=== PATIENT | female | born 1970 | race Caucasian/White ===

== ENCOUNTER → 2017-03-28 08:06 | Outpatient (CLI) | payer OTHER, SELFPAY ==
--- NOTE | 2017-03-28 08:12 | CT_ITS ---
STUDY: CT ABDOMEN AND PELVIS WITH CONTRAST REASON FOR EXAM: Female, 46 years old. Left lower quadrant pain. The patient has a history of lymphoma. Prior splenectomy. RADIATION DOSAGE (If Supplied By Facility): CTDIvol = ( 19.44 ) mGy, DLP = ( 2372.78 ) mGycm TECHNIQUE: Transaxial images were obtained from the dome of the diaphragm to the symphysis pubis with oral contrast. 100mL ml of Isovue 300 contrast was administered. Sagittal and coronal images were reconstructed. Individualized dose optimization techniques were used for this CT. COMPARISON: Comparison is made with prior study dated October 29, 2007. FINDINGS: Calcified granuloma in the left lower lobe. The visualized portions of the heart are within normal limits. There is decreased attenuation of the liver consistent with steatosis. Normal gallbladder and extrahepatic biliary system. Prior splenectomy. There is diffuse atrophy of the pancreas. Normal bilateral adrenal glands. Normal right kidney. Normal left kidney. Normal visualized stomach. Normal small intestine. There are multiple colonic diverticula consistent with diverticulosis. The appendix is visualized and appears normal. Normal abdominal aorta. Normal inferior vena cava. There is borderline retroperitoneal lymphadenopathy with enlarged nodes no greater than 10mm in the short axis diameter. Surgical clips are seen in the retroperitoneal region. This is unchanged. Normal urinary bladder. There is evidence of prior ventral hernia repair with a mesh. Small lymph nodes are seen in the inguinal regions bilaterally. Mild disc space narrowing at the L1-L2 level. CT/Abdomen/Pelvis WITH Contrast IMPRESSION: Prior splenectomy. Fatty infiltration of the liver. Sigmoid diverticula. No acute abnormality is seen. Electronically Signed: Emre Tan MD at 10:10 EST Tel [phone], Service support ,
== END ==
LOC: CT 08:06
PROVIDERS: Family Provider Internal Medicine; PCP Internal Medicine; Visit Provider Internal Medicine
DX: R10.32 Left lower quadrant pain (principal)
CPT/HCPCS: 74177; Q9967

== ENCOUNTER → 2017-10-02 12:59 | Outpatient (CLI) | payer OTHER, SELFPAY ==
--- NOTE | 2017-10-02 13:02 | VDLE_ITS ---
Reason For Study: SOB RIGHT LEFT GSV is normal. GSV is normal. CFV is compressible, spontaneous, phasic, CFV is compressible, spontaneous, phasic, competent and demonstrates normal competent, and demonstrates normal augmentation. augmentation. FV is compressible, spontaneous, phasic, FV is compressible, spontaneous, phasic, competent and demonstrates normal competent and demonstrates normal augmentation. augmentation. POP V is compressible, spontaneous, phasic, POP V is compressible, spontaneous, phasic, competent and demonstrates normal competent and demonstrates normal augmentation. augmentation. T/P Trunk is compressible. T/P Trunk is compressible. PTV is compressible. PTV is compressible. RT PerV is compressible. LT PerV is compressible. Procedure Rt and Left Prox Cathy V are difficult to Exam performed in department. visualize. A preliminary report was called and/or faxed to Dr Lozano. Interpretation Summary Deep veins of the lower extremities are bilaterally patent and compressible segmentally. There is no evidence of deep vein thrombosis on either side. Valvular competence appears intact within the proximal deep venous systems bilaterally. The greater saphenous veins appear bilaterally patent and compressible segmentally. Peroneal veins were not well visualized on either side. Ordering Physician: Sho Lozano Referring Physician: Sho Lozano Performed By: Lucy Stone, RDCS, RVT
--- NOTE | 2017-10-02 13:41 | RAD_ITS ---
STUDY: X-RAY CHEST REASON FOR EXAM: Female, 47 years old. Short of breath TECHNIQUE: Frontal and lateral view of the chest. COMPARISON: 04-08-15 FINDINGS: The lungs are clear and expanded. There is no demonstrated pleural abnormality. Normal size heart. Normal mediastinum and ian. Normal visualized pulmonary arteries. Normal visualized aortic arch and descending thoracic aorta. There are diffuse degenerative changes of the visualized thoracic spine. Normal visualized ribs, clavicles, and shoulders. There is no demonstrated abnormality of the visualized soft tissue structures of the upper abdomen. RAD/Chest PA and Lateral IMPRESSION: There are no acute findings in the chest. Electronically Signed: Arthur Sandhu MD at 16:49 EDT , Service support ,
== END ==
PROVIDERS: Family Provider Internal Medicine; PCP Internal Medicine; Visit Provider Internal Medicine
DX: R06.02 Shortness of breath (principal)
CPT/HCPCS: 71046; 93970

== ENCOUNTER 2017-10-31 13:01 | Day surgery (SDC) | payer OTHER, SELFPAY ==
[2017-10-31 13:27] LABS: Internal QC Validated? YES +Cl - CLEAR BKGD; Pregnancy, Urine Negative Negative
[2017-10-31 13:32] VITALS: BP 147/66; PULSE 66; RESP 16; TEMP 36.6; O2SAT 100; BMI 55.7
[2017-10-31] MEDS: Scopolamine 1mg/72hr Patch 1 PATCH TRANSDERM. (13:39)
[2017-10-31] MEDS: Celecoxib 200 MG Capsule 400 MG PO (13:40)
[2017-10-31] MEDS: Acetaminophen 500 MG Tablet 1000 MG PO (13:40)
[2017-10-31 15:50] VITALS: BP 147/66; BP 160/82; PULSE 83; RESP 14; TEMP 36.5; O2SAT 95
--- NOTE | 2017-10-31 15:51 | PCM.DC.D&C ---
Discharge Diet: No Restrictions Discharge Activity: Return to Normal Activity, May Shower, May Take a Tub Bath - in 2 weeks. May resume sexual activity in: 2 weeks Call your doctor if your incision/area has: Continuous Slow Oozing, Sudden Increased Bleeding, Foul Smelling Discharge Call your doctor if you observe: Fever of 101 or Higher, Using more than one pad per hour Allergies/Adverse Reactions: Allergies adhesive tape Allergy (Verified 10/24/17 10:07) Rash hydrocodone bitartrate [From Vicodin] Allergy (Verified 10/24/17 10:07) Rash latex Allergy (Verified 10/24/17 10:07) Rash meloxicam Allergy (Verified 10/24/17 10:07) Rash Medications to take at Discharge Albuterol IH (ProAir) [Proair Hfa] 2 puff INHALATION Q4H PRN PRN 04/08/15 Budesonide/Formoterol 160/4.5 [Symbicort 160/4.5 Mcg Inhaler (SP)] 2 puff INHALATION BID 04/08/15 Levothyroxine [Synthroid] 25 mcg PO DAILY 04/08/15 Loratadine [Claritin] 10 mg PO PRN PRN 04/08/15 Multivitamin [Multiple Vitamins] 1 each PO DAILY 07/29/16 Clopidogrel Bisulfate [Plavix] 75 mg PO DAILY #30 tablet 07/31/16 Escitalopram Oxalate [Lexapro] 10 mg PO DAILY #30 tablet 07/31/16 Losartan/Hydrochlorothiazide [Losartan-Hctz 100-25 mg Tab] 1 each PO DAILY 10/24/17 Montelukast [Singulair] 10 mg PO DAILY 10/24/17 Primary Care Physician: Sho Lozano DO [Primary Care Provider] - Test Results: Test results from this visit will be discussed in further detail at your follow-up appointment, if applicable. Please Follow Up With: Cathleen Fields MD - [phone] When: Dr. Fields's office 2-4 weeks or as needed
--- NOTE | 2017-10-31 15:52 | PCM.OPRPT ---
Report of Operation Date of Procedure: 10/31/17 Pre-Operative Diagnosis: PMB, endometrial polyp Post-Operative Diagnosis: same Surgery/Procedure Performed:: Hysteroscopy and visual dilation and curettage with removal of polypoid appearing tissue with Symphion device Description of Surgical Findings:: Very small endometrial cavity. Both tubal ostia are identified. There is some polypoid appearing material in the anterior endometrial wall. Normal-appearing cervix, vagina and endocervical canal. mixer lever operator: Shabnam Cuadra MS3 Type of Anesthesia:: General Anesthesiologist: Carlotta Pond Special Medications: none Specimen's removed: Endometrial curetting Drains: None Estimated Blood Loss (mL): 10 cc Fluids Replaced: LR Description of Procedure: The patient was taken to the OR where she was prepped and draped in dorsal lithotomy position. The weighted speculum was placed in the vagina and the anterior lip of the cervix was grasped with a single-tooth tenaculum. A paracervical block was administered with [1% lidocaine with 1-100,000 epinephrine solution]. The cervix was dilated serially with Hegar dilators. The [7mm] hysteroscope was placed into the uterine cavity and the above findings were noted. Bilateral tubal ostia [were] identified. The hysteroscope was removed. The Symphion device was readied and inserted. The device was used to remove the polypoid appearing material from the anterior uterine wall and then to do a visual D&C of the entire uterine cavity.. The instruments were removed from the vagina. The specimen was handed off and sent to pathology. All sponge and needle counts were correct. Vaginal sweep was performed by me. The patient was awakened and taken to the recovery room in stable condition. Hysteroscopic fluid deficit was 250 cc of normal saline Grafts/Implants Used: None - Complications None - Admit VTE Documentation VTE Present on Admission: No VTE Mechan Device Prophylaxis: SCD's VTE Pharm Prophylaxis ordered?: No
[2017-10-31 16:00] VITALS: BP 147/66; BP 159/82; PULSE 80; RESP 16; O2SAT 96
[2017-10-31 16:15] VITALS: BP 147/66; BP 155/81; PULSE 77; RESP 16; O2SAT 93
[2017-10-31 16:36] VITALS: BP 147/66; BP 162/80; PULSE 78; RESP 16; TEMP 36.9; O2SAT 93
[2017-10-31 17:10] VITALS: BP 147/66
--- NOTE | 2017-11-01 | EMB_PTH ---
PATIENT: ETHEL FORMAN LOC: [facility] [place] U#:[id number] AGE/SX: 47/F ROOM: RE10/31/[address]: Dr. Cathleen Fields MD : 1970 BED: DIS: 10/31/2017 SPEC #: [id number] RECD: 11/01/17 10:02 STATUS: VÍCTOR FRANSISCA #: [id number] DELMY: 11/01/17 00:[address]: Cathleen Fields DEPT: SURGICAL PATHOLOGY RECD BY: James Martinez ENTERED: 11/01/17 10:04 SP TYPE: ENDOM BX/C LISA DR: Dr. Sho Lozano, DO Tissues: Endometrium, NOS Procedures: Surgery Specimen Level IV HEADER OPERATION: Hysteroscopy, D & C, resection, Symphion PRE-OP DIAGNOSIS: Postmenopausal bleeding, thickened endometrium TISSUE SUBMITTED: Endometrial curettings MICROSCOPIC DIAGNOSIS Endometrial curettings: Mildly disordered proliferative endometrium. Fragments of myometrium. SJ:nancy 11/05/17 MICROSCOPIC DESCRIPTION Slides are reviewed. GROSS DESCRIPTION Received in fixative is one container labeled with the patient's name and designated endometrial curettings. The specimen consists of multiple irregular fragments of light elizabeth soft tissue that in aggregate measure 2 x 1 x 0.1 cm. The specimen is totally submitted in one cassette. / AM:nancy 11/01/17 TC:5 CPT: 06082
== END 2017-10-31 17:20 | disposition home or self-care (01) ==
LOC: SDC 13:02 → AC 13:03
PROVIDERS: Family Provider Internal Medicine; PCP Internal Medicine; Visit Provider Obstetrics & Gynecology
PROC: (CPT 58558; principal; 2017-10-31 14:30)
DX: N95.0 Postmenopausal bleeding (principal); N84.0 Polyp of corpus uteri; Q21.1 Atrial septal defect; J45.909 Unspecified asthma, uncomplicated; E78.00 Pure hypercholesterolemia, unspecified; G47.33 Obstructive sleep apnea (adult) (pediatric); K21.9 Gastro-esophageal reflux disease without esophagitis; F32.9 Major depressive disorder, single episode, unspecified; F41.9 Anxiety disorder, unspecified; I25.2 Old myocardial infarction; Z79.02 Long term (current) use of antithrombotics/antiplatelets; Z79.82 Long term (current) use of aspirin; Z79.899 Other long term (current) drug therapy; Z85.72 Personal history of non-Hodgkin lymphomas; Z86.711 Personal history of pulmonary embolism; Z86.73 Personal history of transient ischemic attack (TIA), and cerebral infarction without residual deficits
CPT/HCPCS: 00952; 58558; 81025; 86850; 86900; 88305; J7120; J2405

== ENCOUNTER 2017-11-11 20:17 | Emergency (ER) | payer OTHER, SELFPAY ==
[2017-11-11 20:17] VITALS: BP 145/68; PULSE 88; RESP 18; TEMP 36.9; O2SAT 99; BMI 54.2
--- NOTE | 2017-11-11 20:57 | RAD_ITS ---
STUDY: X-RAY - LEFT KNEE REASON FOR EXAM: Female, 47 years old. Fall, left knee pain. TECHNIQUE: view(s) of the knee. COMPARISON: None. FINDINGS: Normal visualized distal femur. Normal visualized proximal tibia and fibula. Normal proximal tibiofibular articulation. Normal medial femorotibial compartment. Normal lateral femorotibial compartment. Normal patellofemoral articulation. There is marked anterior soft tissue swelling. RAD/Knee 3 Views IMPRESSION: Soft tissue swelling. No evidence of fracture. Electronically Signed: Olena Gilman MD at 21:57 EDT Tel , Service support ,
--- NOTE | 2017-11-11 21:12 | RAD_ITS ---
STUDY: X-RAY - RIGHT KNEE REASON FOR EXAM: Female, 47 years old. Fall, knee pain. TECHNIQUE: 3 view(s) of the knee. COMPARISON: None. FINDINGS: Normal visualized distal femur. Normal visualized proximal tibia and fibula. Normal proximal tibiofibular articulation. Normal medial femorotibial compartment. Normal lateral femorotibial compartment. Normal patellofemoral articulation. The soft tissue structures are unremarkable. RAD/Knee 3 Views IMPRESSION: Normal x-ray examination of the knee. Electronically Signed: Olena Gilman MD at 21:56 EDT Tel , Service support ,
--- NOTE | 2017-11-11 21:20 | RAD_ITS ---
STUDY: X-RAY - LEFT HAND REASON FOR EXAM: Female, 47 years old. Fall. Pain around second MCP joint. TECHNIQUE: 3 view(s) of the hand. COMPARISON: None. FINDINGS: Slight limitation due to ring on the fourth digit. There is no fracture or dislocation. Joint spaces are well-maintained. Soft tissues and bony structures are unremarkable. RAD/Hand Min 3 Views IMPRESSION: Normal x-ray examination of the hand. Electronically Signed: Olena Gilman MD at 21:55 EDT Tel , Service support ,
--- NOTE | 2017-11-11 22:11 | ED.DCSUM_ITS ---
- ER Visit Summary Date of Service: 11/11/17 Chief Complaint: [Fall] History of Present Illness: The patient is a 47 F [l presents the emergency department [place] Patient states that she tripped over a crack in the concrete and landed on her knees. Patient complains of pain mostly in the left knee and pain with ambulation. Patient having a hard time bearing weight secondary to pain. Patient has a history of hypertension and Hodgkin's lymphoma. Physical Examination: [HEENT-PERRLA, EOMI. Cranial nerves II through XII grossly intact. TMs clear. Mucous membranes moist. No adenopathy. Cardiovascular-regular rate and rhythm without murmur or ectopy Lungs-clear to auscultation, chest wall stable without crepitus or subcu emphysema Abdomen-normoactive bowel sounds, soft, nontender, no rebound or rigidity, no peritoneal signs. Extremities-intact ?4, normal range of motion, normal pulses. Patient does have ecchymosis and bruising to the left knee with soft tissue swelling. She has diffuse pain on palpation. She is ligamentously stable. Right knee-mild soft tissue swelling minimal bony tenderness on exam. Patient has normal range of motion flexion extension of the knee. Elevation left hand does reveal some ecchymosis and bruising over the dorsal aspect of the third MCP joint. She has tenderness over the third metacarpal. Neurovascular intact distally. No obvious deformity. Test Results: [X-rays of bilateral knees and left hand obtained showed no fractures.] Emergency Department Course and Treatment: [Patient was given Taurus wrap for her left knee.] Treatment Plan: [Patient was given a prescription for Percocet for pain and advised to follow-up with her orthopedic surgeon within next 3-5 days] Disposition: [Discharged home in stable condition] Impression: [Mechanical fall Bilateral knee contusions Left hand contusion] This note was generated with [employer] dictation software. It may contain incorrect words, spelling, and punctuation that were not noted in review of the chart prior to signing ED Disposition - Plan for ED Patient: Chief Complaint: Lower Extremity Injury Referrals: Sho Lozano DO [Primary Care Provider] -
--- NOTE | 2017-11-11 22:12 | ED.DEP ---
ED Disposition - Plan for ED Patient: Chief Complaint: Lower Extremity Injury Instructions: ED Contusion Lower Ext, ED Contusion Hand Prescriptions: Oxycodone HCl/Acetaminophen [Percocet 5/325] 1 tab PO Q6H PRN PRN 3 Days #12 tab PRN Reason: Pain Referrals: Sho Lozano DO [Primary Care Provider] - Eric Duncan MD [STAFF PHYSICIAN] - 5-7 Days
[2017-11-11] MEDS: oxyCODONE 5 MG Tablet PO (22:31)
[2017-11-11 22:34] VITALS: RESP 18; O2SAT 99
== END 2017-11-11 22:35 | disposition home or self-care (01) ==
PROVIDERS: Emergency Provider Emergency Medicine; Family Provider Internal Medicine; PCP Internal Medicine
DX: S80.02XA Contusion of left knee, initial encounter (principal); S80.01XA Contusion of right knee, initial encounter; S60.222A Contusion of left hand, initial encounter; W01.0XXA Fall on same level from slipping, tripping and stumbling without subsequent striking against object, initial encounter; Y93.9 Activity, unspecified; Y92.89 Other specified places as the place of occurrence of the external cause; Y99.9 Unspecified external cause status; I10 Essential (primary) hypertension; R19.7 Diarrhea, unspecified; Z79.02 Long term (current) use of antithrombotics/antiplatelets; Z79.82 Long term (current) use of aspirin; Z79.899 Other long term (current) drug therapy; Z85.71 Personal history of Hodgkin lymphoma
CPT/HCPCS: 73130; 73562; 99284

== ENCOUNTER → 2017-12-04 15:09 | Outpatient (CLI) | payer OTHER, SELFPAY ==
--- NOTE | 2017-12-04 15:26 | VDLE_ITS ---
Reason For Study: Pain LLE Procedure LEFT Exam performed in department. GSV is normal. A preliminary report was called and/or CFV is compressible, spontaneous, phasic, faxed to Dr. Duncan. competent, and demonstrates normal augmentation. FV is compressible, spontaneous, phasic, competent and demonstrates normal augmentation. POP V is compressible, spontaneous, phasic, competent and demonstrates normal augmentation. T/P Trunk is compressible. PTV is compressible. LT PerV is compressible. Difficult to visualize Lt FV distal and calf veins due to patient body habitus Hypoechoic, non vascular structure noted anterior prox calf and around the knee (area of bruising/swelling) measuring 4.56cm x 1.82cm. Interpretation Summary Deep veins of the left lower extremity are patent and compressible segmentally. There is no evidence of left lower extremity deep vein thrombosis. Valvular competence appears intact within the proximal deep venous system on the left . The left greater saphenous vein appears patent and compressible segmentally. The left distal femoral vein and calf veins were not well visualized due to the patient's body habitus. A non-vascular, hypoechoic structure is noted in the left proximal, anterior calf and the left knee area, measuring 4.65 cm x 1.82 cm. This may represent a hematoma or seroma. Clinical correlation is advised. Ordering Physician: Eric Duncan Referring Physician: Sho Lozano Performed By: Yuliya Washington, IRVIN, RVT
[2017-12-04 15:41] LABS: Pathologist Comment May follow
[2017-12-04 16:19] LABS: RBC /Synovial Fluid 1.487 10^6/uL (0); Synovial Fld Mononuclear WBC % 34.8 %; Synovial Fld Polynuclear WBC # 0.983 10^3/ul; Synovial Fld Polynuclear WBC % 65.2 %
[2017-12-04 18:09] LABS: AUTO B FLUID DILUENT BKGD CT WBC <0.1 RBC <0.01 (W<.1,R<.01)
[2017-12-04 18:10] LABS: Appearance /Synovial Fluid Turbid (CLEAR); Color / Synovial Fluid Bloody (Pale Yellow); Lymph 13 %; Monocyte /Synovial Fluid 3 %; Neutrophil 75 % (0-25); Other Cell /Synovial Fluid 9 %; Source- Body Fluid SYNOVIAL; Synovial Fld Mononuclear WBC # 0.524 10^3/ul
[2017-12-04 18:11] LABS: Body Fluid QC Type(s) BF2Q,BF3Q
[2017-12-05 13:37] LABS: Pathologist Review Reviewed
== END ==
PROVIDERS: Family Provider Internal Medicine; PCP Internal Medicine; Referring Provider Orthopaedic Surgery; Visit Provider Orthopaedic Surgery
DX: M25.462 Effusion, left knee (principal); M79.662 Pain in left lower leg
CPT/HCPCS: 87070; 87075; 87205; 89050; 89051; 89060; 93971

== ENCOUNTER 2018-03-26 09:36 | Emergency (ER) | payer OTHER, SELFPAY ==
[2018-03-26 09:38] VITALS: BP 168/91; PULSE 80; RESP 16; TEMP 36.6; O2SAT 99; BMI 54.2
--- NOTE | 2018-03-26 10:00 | ED.VISSUMM ---
- ER Visit Summary Date of Service: 03/26/18 Chief Complaint: [Laceration to right lateral ankle] History of Present Illness: The patient is a 47 F [presents the emergency department complaining of a laceration to her right lateral ankle that occurred while shaving this morning. Patient states that she has some varicosities and when she cut herself she can get the bleeding to stop. Patient is on aspirin and Plavix. She has prior history of PE. Patient unsure of her last tetanus.] Physical Examination: [HEENT-PERRLA, EOMI. Cranial nerves II through XII grossly intact. TMs clear. Mucous membranes moist. No adenopathy. Cardiovascular-regular rate and rhythm without murmur or ectopy Lungs-clear to auscultation, chest wall stable without crepitus or subcu emphysema Abdomen-normoactive bowel sounds, soft, nontender, no rebound or rigidity, no peritoneal signs. Extremities-intact ?4, normal range of motion, normal pulses. Right lateral ankle-there is a 2 mm linear/superficial laceration over a superficial varicosity that continues to ooze dark blood despite pressure.] Test Results: [None indicated] Emergency Department Course and Treatment: [Using 1% lidocaine with epinephrine I injected 1.5 cc in the area of the bleeding. I continue to hold pressure. I used silver nitrate cautery to cauterize the bleeding area. The area was observed for about 15 minutes and she had no further bleeding. Clean dressing was applied.] Treatment Plan: [Should the bleeding continue patient hold pressure if the bleeding does not stop to return to the emergency department.] Disposition: [Discharged home in stable condition] Impression: [Laceration right ankle with silver nitrate cautery] This note was generated with [employer] dictation software. It may contain incorrect words, spelling, and punctuation that were not noted in review of the chart prior to signing ED Disposition - Plan for ED Patient: Chief Complaint: Laceration Referrals: Sho Lozano DO [Primary Care Provider] -
--- NOTE | 2018-03-26 10:03 | ED.DEP ---
ED Disposition - Plan for ED Patient: Chief Complaint: Laceration Instructions: ED Laceration Small Superf No Sutr Referrals: Sho Lozano DO [Primary Care Provider] - As Needed
[2018-03-26] MEDS: Diphth,Pertuss(Acell),Tet Vac 0.5 ML Vial IM (10:16)
--- OUTSIDE RECORDS SUMMARY | 2018-05-28 06:37 | XMS RPT_ITS | Continuity of Care Document ---
:1970 Author Organization [facility] Address [address] [facility] [address] [place] [address] Phone Care Team Providers Name Role Phone Sho Lozano DO Unavailable Brooklynn RODRIGUES, Dr. Jacinto Corrales Unavailable MD Chandler, Stan Unavailable Raymundo Ordonez MD Unavailable Christian LopezShabnamSharri Lomax Unavailable Unavailable TOMY TianN Rebekah Unavailable Unavailable Vivi Goodwin Unavailable Unavailable Long Carmelina MOORE Unavailable Unavailable Cassie Saul Unavailable Unavailable Unavailable Unavailable Problems Name Dates Details 0 Status: Active Abdominal pain (R10.9, 789.00) Status: Active Abnormal findings on diagnostic imaging of other specified body structures (R93.8, 793.99) Status: Active Abnormal glucose tolerance test (Renamed from Abnormal glucose tolerance test (GTT)) (R73.02, 790.22) Comments: new dx Status: Active Anxiety (F41.9, 300.00) Status: Active Arm pain (M79.603, 729.5) Status: Active ARTHROPLASTY, NOS Comments: Lt, first metatarsophalangeal 09/05, rt. 12 Dr. Mcgrath Status: Active Asplenia syndrome (759.0) Comments: with current infection - Staph fighting since september -- ENT managing Status: Active Asymptomatic varicose veins of unspecified lower extremity (I83.90, 454.9) Status: Active Bloating symptom (R14.0, 787.3) Comments: had cat scan abd/pelvis 03/21-- vaginal us and uterine bx 10/01/17 results pending Status: Active BMI 50.0-59.9, adult (Z68.43, V85.43) Status: Active Body aches (R52, 780.96) Status: Active Body aches (R52, 780.96) Status: Active Bronchitis (J40, 490) Status: Active Bronchitis (J40, 490) Status: Active Cellulitis (L03.90, 682.9) Comments: will treat empiracally Status: Active Chest pain (R07.9, 786.59) Comments: with radiation left arm, fatigue, SOB Status: Active Cough (R05, 786.2) Status: Active COUGH, NOS (R05, 786.2) 29-Jan-2011 Status: Active Cough, persistent (R05, 786.2) Comments: still in w/u Status: Active Dysuria (R30.0, 788.1) Comments: do post urine ck after tx to see if blood resolvedid have lapse in hormone rx - could be a little atrophy Status: Active Elevated blood pressure (not hypertension) (R03.0, 796.2) Status: Active Elevated d-dimer (R79.89, 790.92) Status: Active Elevated LFTs (Renamed from Elevated liver function tests) (R94.5, 790.6) Comments: mild Status: Active 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) (L52, 695.2) Status: Active Family history of diabetes mellitus (Z83.3, V18.0) Status: Active FATIGUE (R53.83, 780.79) Comments: to do 10day adrenal kit and cleanse part again Status: Active Fatty liver (K76.0, 571.8) Status: Active Fatty liver (K76.0, 571.8) Status: Active Fever (R50.9, 780.60) Status: Active Fever and chills (R50.9, 780.60) Status: Active GERD (gastroesophageal reflux disease) (K21.9, 530.81) Status: Active GERD (gastroesophageal reflux disease) (K21.9, 530.81) Status: Active Hearing loss of right ear due to cerumen impaction (H61.21, 389.8) Status: Active Hiatal hernia (K44.9, 553.3) Status: Active History of basal cell cancer (V10.83) Comments: s/p removal 2013 by Nga Status: Active History of DVT (deep vein thrombosis) (Z86.718, V12.51) Status: Active History of hodgkin's lymphoma (Z85.71, V10.72) Status: Active History of non anemic vitamin B12 deficiency (Z86.39, V12.1) Status: Active Hot flashes (N95.1, 627.2) Status: Active HTN (hypertension), benign (I10, 401.1) Status: Active Hypercholesteremia (E78.00, 272.0) Status: Active Hyperglyceridemia (E78.1, 272.1) Status: Active Hypoglycemia (E16.2, 251.2) Status: Active Hypothyroidism, unspecified (E03.9, 244.9) Status: Active Ischemic stroke of frontal lobe (I63.9, 434.91) Comments: asa plu plavix Status: Active LLQ abdominal pain (R10.32, 789.04) Status: Active Lymphadenopathy, cervical (R59.0, 785.6) Status: Active Migraine, unspecified, not intractable, without status migrainosus (G43.909, 346.90) Status: Active MYOCARDIAL INFARCTION, NOS (410.90) Status: Active Night sweats (R61, 780.8) Status: Active Non morbid obesity, unspecified obesity type (E66.9, 278.00) Status: Active Non-smoker (Z78.9, V49.89) Status: Active Nutritional counseling (Z71.3, V65.3) Status: Active Pain in limb (M79.609, 729.5) Status: Active Personal history of PE (pulmonary embolism) (Z86.711, V12.55) Comments: has a pfo Status: Active PFO (patent foramen ovale) (Q21.1, 745.5) Status: Active PHARYNGITIS, NOS (462.) (J02.9, 462) Status: Active Polyp of colon, adenomatous (D12.6, 211.3) Status: Active Pregnancies () Comments: 0 Status: Active Racing heart beat (R00.0, 785.0) Status: Active Rosacea (L71.9, 695.3) Status: Active Screening for malignant neoplasm of breast (Z12.39, V76.10) Status: Active Skin lesion (L98.9, 709.9) Status: Active Sleep apnea (G47.30, 780.57) Comments: wearing cpap mask Status: Active SOB (R06.02, 786.05) Status: Active SOB (shortness of breath) (R06.02, 786.05) Status: Active Sorethroat (J02.9, 462) Status: Active SYMPTOM, ABNORMAL INVOLUNTARY MOVEMENT NEC (781.0) Status: Active Symptomatic menopausal or female climacteric states (N95.1, 627.2) Comments: chemo damaged female organs so early 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 Unspecified asthma with (acute) exacerbation (J45.901, 493.92) Comments: causing wheeze and chest tightness -- think related to asthma- will try symbicort bid again since remebered that heart racing came after did symbicort and proventil togehter-- got partial relief with da pantera use so try bid for maintenance-- - bc wheeze worse at nite also gerd component?- try ppi, wt loss and raise head of bed and no eating or drinking 4hrs prior to bed Status: Active Unspecified Diagnosis Status: Active Unspecified Diagnosis Status: Active UTI (urinary tract infection) (N39.0, 599.0) Status: Active Ventral hernia without obstruction or gangrene (K43.9, 553.20) Status: Active Viral URI (J06.9, 465.9) Status: Active Vitamin D deficiency, unspecified (E55.9, 268.9) Status: Active Wheezing (R06.2, 786.07) -Dec-2011 Comments: elev hob helped and behavior modific Status: Active Medications Name Dates Details ASPIRIN EC LOW DOSE, 81MG (Oral Tablet Delayed Release) 1 (one) Tablet DR daily for 0 days Quantity: 30 {Tablet} Refills: 0 Ordered:06-Aug-2016 Carmelina Newman LPN Start : 12-Apr-2015 Active CLARITIN-D 24 HOUR, 10-240MG (Oral Tablet Extended Release 24 Hour) 1 Tablet ER 24HR qd for 30 days Quantity: 30 {Tablet} Refills: 0 Ordered:12-Apr-2015 Adelfo Lozano DO, DO, Kathleen Start : 12-Apr-2015 Active Lexapro 10 MG Oral Tablet 1 (one) Tablet daily for 30 days Quantity: 30 {Tablet} Refills: 3 Ordered:16-Aug-2017 Adelfo Lozano DO, DO, Kathleen Start : 16-Aug-2017 Active Losartan Potassium-HCTZ 100-25 MG Oral Tablet 1 (one) Tablet daily for 30 days Quantity: 30 {Tablet} Refills: 0 Ordered:11-Feb-2018 Baldemar Echols Start : 11-Feb-2018 Active MetFORMIN HCl ER 500 MG Oral Tablet Extended Release 24 Hour 1 (one) Tablet qd for 30 days Quantity: 30 {Tablet} Refills: 3 Ordered:16-Jul-2017 Adelfo Lozano DO, DO, Kathleen Start : 16-Jul-2017 Active Montelukast Sodium 10 MG Oral Tablet 1 qd (10 MG) Active MULTIVITAMIN (PO Tab) 1 Daily for 0 days Refills: 0 Ordered:29-Jul-2009 Mast RN, Palak NASONEX, 50MCG/ACT (Nasal Suspension) 1 spray Daily PRN for 0 days Refills: 0 Ordered:12-Apr-2015 Adelfo Lozano DO, DO, Kathleen Start : 12-Apr-2015 Active Plavix 75 MG Oral Tablet 1 (one) Tablet daily for 0 days Quantity: 30 {Tablet} Refills: 3 Ordered:12-Dec-2017 Adelfo Lozano DO, DO, Kathleen Start : 12-Dec-2017 Active PROAIR HFA, 108 (90 Base)MCG/ACT (Inhalation Aerosol Solution) 2 (two) Puff(s) tid prn for 0 days Quantity: 1 {Box} Refills: 4 Ordered:01-Jul-2015 Adelfo Lozano DO, DO, Kathleen Start : 01-Jul-2015 Active SYMBICORT, 160-4.5MCG/ACT (Inhalation Aerosol) 1 (one) puff puff bid for 0 days Quantity: 1 {Box} Refills: 4 Ordered:01-Jul-2015 Adelfo Lozano DO, DO, Kathleen Start : 01-Jul-2015 Active Synthroid 125 MCG Oral Tablet 1 (one) Tablet qd for 0 days Quantity: 30 {Tablet} Refills: 7 Ordered:13-Jan-2018 Adelfo Lozano DO, DO, Kathleen Start : 13-Jan-2018 Active VITAMIN D3, 82619YCYG (Oral Capsule) 1 Capsule 2 x week for 0 days Quantity: 8 {Capsule} Refills: 5 Ordered:02-Dec-2014 Carmelina Newman LPN Start : 22-Apr-2013 Active ADVIL, 200MG (Oral Capsule) 3 (three) Capsule TID for 0 days Refills: 0 Ordered:18-Dec-2013 CONSTANCE Fields Start : 23-Dec-2006 End : 18-Dec-2013 Inactive Amoxicillin 875 MG Oral Tablet 1 (one) Tablet two times daily for 7 days Quantity: 14 {Tablet} Refills: 0 Ordered:20-May-2017 Baldemar Echols Start : 20-May-2017 End : 27-May-2017 Inactive AMOXICILLIN, 875MG (Oral Tablet) 1 (one) Tablet bid for 10 days Quantity: 20 {Tablet} Refills: 0 Ordered:04-Jul-2015 Rebekah Tian LPN Start : 04-Jul-2015 End : 14-Jul-2015 Inactive ANTIVERT, 50MG (Oral Tablet) 1/2 -1 Tablet Q 8 hr PRN for 0 days Quantity: 30 {Tablet} Refills: 0 Ordered:13-Dec-2006 Rebekah Tian LPN Start : 13-Dec-2006 End : 20-Jan-2007 Inactive Augmentin 875-125 MG Oral Tablet 1 (one) Tablet bid for 0 days Quantity: 20 {Tablet} Refills: 0 Ordered:22-Mar-2017 Rebekah Tian LPN Start : 20-Nov-2016 End : 22-Mar-2017 Inactive Augmentin 875-125 MG Oral Tablet 1 Tablet Twice daily for 0 days Quantity: 20 {Tablet} Refills: 0 Ordered:20-Nov-2016 Vivi Goodwin Start : 16-Dec-2015 End : 20-Nov-2016 Inactive AZITHROMYCIN, 500MG (Oral Tablet) 1 Tablet qd for 0 days Quantity: 14 {Tablet} Refills: 0 Ordered:05-Jul-2011 Rebekah Tian LPN Start : 02-Feb-2011 End : 05-Jul-2011 Inactive BENZONATATE, 200MG (Oral Capsule) 1 (one) Capsule Capsule tid prn for 0 days Quantity: 60 {Capsule} Refills: 0 Ordered:01-Jul-2015 Rebekah Tian LPN Start : 12-Apr-2015 End : 01-Jul-2015 Inactive BIAXIN XL PAC, 500MG (Oral Tablet Extended Release 24 Hour) 2 (two) Tablet ER 24HR daily for 14 days Quantity: 28 {Tablet_ER_24HR} Refills: 0 Ordered:04-Dec-2011 Jennifer Willams MD Start : 04-Dec-2011 End : 04-Dec-2011 Inactive Comments:facial edema rash Cefdinir 300 MG Oral Capsule 1 (one) Capsule bid for 7 days Quantity: 14 {QS} Refills: 0 Ordered:27-Sep-2015 Clifford DIAS Jamee Start : 27-Sep-2015 End : 04-Oct-2015 Inactive CHERATUSSIN AC, 100-10MG/5ML (Oral Syrup) 1 Teaspoon(s) q4-6 prn cough for 0 days Quantity: 6 {Ounce(s)} Refills: 0 Ordered:02-Apr-2012 Rebekah Tian LPN Start : 03-Dec-2011 End : 02-Apr-2012 Inactive CIPRO, 500MG (Oral Tablet) 1 (one) Tablet BID for 7 days Quantity: 10 {Tablet} Refills: 0 Ordered:21-Jan-2009 Adelfo Lozano DO, DO, Kathleen Start : 21-Jan-2009 End : 11-Feb-2009 Inactive COQ10, 100MG (Oral Capsule) 1 cap qd (100 MG) Inactive COUMADIN, 10MG (Oral Tablet) 1 Tablet qd for 30 days Quantity: 30 {Tablet} Refills: 3 Ordered:12-Nov-2011 Roxie Vázquez LPN Start : 21-May-2011 End : 12-Nov-2011 Inactive COUMADIN, 4MG (Oral Tablet) 1 Tablet qd for 30 days Quantity: 30 {Tablet} Refills: 5 Ordered:12-Nov-2011 Roxie Vázquez LPN Start : 12-Feb-2011 End : 12-Nov-2011 Inactive DESOXIMETASONE, 0.25% (External Cream) Cream BID for 0 days Quantity: 1 {Cream} Refills: 0 Ordered:03-Jul-2006 Rebekah Tian LPN Start : 03-Jul-2006 End : 13-Dec-2006 Inactive Comments:small tube DIFLUCAN, 150MG (Oral Tablet) 1 (one) Tablet QD X 1 for 0 days Quantity: 1 {Tablet} Refills: 1 Ordered:14-Nov-2007 Rebekah Tian LPN Start : 14-Nov-2007 End : 21-Nov-2007 Inactive DOXYCYCLINE HYCLATE, 100MG (Oral Capsule) 1 (one) Capsule bid for 0 days Quantity: 20 {Capsule} Refills: 0 Ordered:16-Nov-2014 Carmelina Newman LPN Start : 05-May-2014 End : 16-Nov-2014 Inactive KEFLEX, 250MG (Oral Capsule) 1 qid for 0 days Refills: 0 Ordered:21-Nov-2007 Rebekah Tian LPN End : 21-Nov-2007 Inactive LEVAQUIN, 750MG (Oral Tablet) 1 Tablet daily for 10 days Quantity: 10 {Tablet} Refills: 0 Ordered:02-Feb-2011 Rebekah Tian LPN Start : 02-Feb-2011 End : 12-Feb-2011 Inactive Comments:take 1h before or 2h after meals Lipitor 80 MG Oral Tablet 1 (one) Tablet qhs for 0 days Quantity: 30 {Tablet} Refills: 4 Ordered:20-Nov-2016 Vivi Goodwin Start : 28-Aug-2016 End : 20-Nov-2016 Inactive NASACORT AQ, 55MCG/ACT (Nasal Aerosol Solution) 2 (two) Aerosol Soln qd for 0 days Quantity: 1 {Aerosol_Soln} Refills: 1 Ordered:22-May-2010 Maria Esther Amin Start : 22-Mar-2010 End : 22-May-2010 Inactive NYSTATIN, 944958WQCP/GM (External Powder) Powder TID/PRN to affected area for 0 days Quantity: 1 {Powder} Refills: 0 Ordered:03-Jul-2006 Rebekah Tian LPN Start : 03-Jul-2006 End : 13-Dec-2006 Inactive OMEPRAZOLE, 40MG (Oral Capsule Delayed Release) 1 (one) Capsule DR Capsule DR daily for 0 days Quantity: 30 {Capsule} Refills: 3 Ordered:01-Jul-2015 Rebekah Tian LPN Start : 12-Apr-2015 End : 01-Jul-2015 Inactive PEPCID AC, 10MG (Oral Tablet) 1 (one) Tablet Twice daily prn for 0 days Refills: 0 Ordered:14-Sep-2009 Rebekah Tian LPN Start : 29-Oct-2007 Inactive Pravastatin Sodium 40 MG Oral Tablet 1 qd (40 MG) Inactive PREDNISONE (TOPHER), 10MG (Oral Tablet) 3 (three) Tablet qd for 0 days Quantity: 30 {Tablet} Refills: 0 Ordered:09-Aug-2008 Rebekah Tian LPN Start : 09-Aug-2008 End : 10-Dec-2008 Inactive Comments:with food PredniSONE 20 MG Oral Tablet 2 (two) Tablet Tablet one hour before scan and 6hour after scan for 0 days Quantity: 4 {Tablet} Refills: 0 Ordered:02-Oct-2017 Rebekah Tian LPN Start : 27-Mar-2017 End : 02-Oct-2017 Inactive PREDNISONE, 10MG (Oral Tablet) 3 (three) Tablet daily for 7 days Quantity: 21 {Tablet} Refills: 0 Ordered:12-Nov-2011 Clifford DIAS Jamee Start : 12-Nov-2011 End : 19-Nov-2011 Inactive PROTONIX, 40MG (Oral Tablet Delayed Release) [address] qd for 0 days Quantity: 30 {Tablet_DR} Refills: 1 Ordered:18-Dec-2013 CONSTANCE Fields Start : 02-Apr-2012 End : 18-Dec-2013 Inactive SKELAXIN, 800MG (Oral Tablet) 1 (one) Tablet TID for 0 days Refills: 0 Ordered:13-Dec-2006 Rebekah Tian LPN Start : 13-Dec-2006 End : 20-Jan-2007 Inactive SPECTAZOLE, 1% (External Cream) Cream BID to affected area for 0 days Quantity: 1 {Cream} Refills: 0 Ordered:03-Jul-2006 Rebekah Tian LPN Start : 03-Jul-2006 End : 13-Dec-2006 Inactive Comments:1 small to med tube SPECTRACEF, 200MG (Oral Tablet) 1 (one) Tablet bid for 0 days Quantity: 10 {Tablet} Refills: 0 Ordered:04-Feb-2007 Rebekah Tian LPN Start : 22-Jan-2007 End : 04-Feb-2007 Inactive Comments:with food TOPICORT, 0.25% (External Cream) 1 Cream bid for 0 days Quantity: 1 {Cream} Refills: 0 Ordered:05-Oct-2010 Rebekah Tian LPN Start : 10-Jul-2010 End : 05-Oct-2010 Inactive WELLBUTRIN XL, 300MG (Oral Tablet Extended Release 24 Hour) 1 (one) Tablet ER 24HR qd for 0 days Quantity: 30 {Tablet_ER_24HR} Refills: 3 Ordered:05-Oct-2010 Rebekah Tian LPN Start : 15-Jun-2010 End : 05-Oct-2010 Inactive Comments:q loren for a week then stop Xarelto 15 MG Oral Tablet 1 (one) Tablet bid for 0 days Quantity: 21 {Tablet} Refills: 0 Ordered:16-Dec-2015 Rebekah Tian LPN Start : 27-Sep-2015 End : 16-Dec-2015 Inactive Comments:samples given ZITHROMAX Z-TOPHER, 250MG (Oral Tablet) 1 (one) Tablet qd for 0 days Quantity: 1 {Packet} Refills: 0 Ordered:05-May-2014 Rebekah Tian LPN Start : 12-Mar-2014 End : 05-May-2014 Inactive ZYRTEC, 10MG (Oral Tablet) 1 prn for 0 days Refills: 0 Ordered:29-Oct-2007 Rebekah Tian LPN End : 29-Oct-2007 Inactive DEXILANT, 60MG (Oral Capsule Delayed Release) 1 (one) Capsule DR qd for 0 days Quantity: 30 {Capsule} Refills: 0 Ordered:12-Apr-2015 Roxie Vázquez LPN Start : 12-Apr-2015 End : 12-Apr-2015 Discontinued ESOMEPRAZOLE MAGNESIUM, 40MG (Oral Capsule Delayed Release) 1 (one) Capsule DR qhs for 0 days Quantity: 30 {Capsule} Refills: 3 Ordered:12-Apr-2015 Roxie Vázquez LPN Start : 02-Dec-2014 End : 12-Apr-2015 Discontinued LEVOXYL, 125MCG (Oral Tablet) 1 Tablet qd for 30 days Quantity: 30 {Tablet} Refills: 3 Ordered:04-Jan-2014 Adelfo Lozano DO, DO, Kathleen Start : 04-Jan-2014 End : 04-Jan-2014 Discontinued Comments:new dose-- feels better on danny Lisinopril-Hydrochlorothiazide 20-12.5 MG Oral Tablet 1 (one) Tablet qam for 0 days Quantity: 30 {Tablet} Refills: 0 Ordered:09-Oct-2017 DorysCassie Start : 02-Oct-2017 End : 09-Oct-2017 Discontinued PREDNISONE, 20MG (Oral Tablet) tad Tablet uad for 0 days Refills: 0 Ordered:22-Nov-2009 Mast AMADA Trish Start : 01-Nov-2009 End : 09-Feb-2010 Discontinued Comments:1tab bid for 2 days then 1 tab qd for 4 days then 1/2 tab daily for 4 days dispense QS PREMPRO, 0.625-2.5MG (Oral Tablet) 1 Tablet qd for 30 days Quantity: 30 {Tablet} Refills: 3 Ordered:11-Jan-2011 Adelfo Lozano DO, DO, Kathleen Start : 11-Jan-2011 End : 11-Jan-2011 Discontinued VIIBRYD, 40MG (Oral Tablet) 1 Tablet qd for 0 days Quantity: 30 {Tablet} Refills: 3 Ordered:18-Jan-2012 Adelfo Lozano DO, DO, Kathleen Start : 18-Jan-2012 End : 18-Jan-2012 Discontinued Allergies and Adverse Reactions Name Dates Details Biaxin *MACROLIDES* (Allergy) Status: Active Comments: facial edema hives Lisinopril *ANTIHYPERTENSIVES* (Allergy) Reaction: Hives Status: Active MOBIC (Allergy) Status: Active VICODEN (Allergy) Status: Active Past Medical History Name Dates Details Abdominal pain, acute, generalized (R10.84, 789.07) Status: Inactive as of 18-Dec-2013 Abdominal pain, acute, left lower quadrant (R10.32, 789.04) Comments: i think scar tissue over incision-- pt would like to also speak to surgeon to see if he agrees -- will refer Status: Inactive as of 16-Apr-2012 Abdominal pain, acute, right lower quadrant (R10.31, 789.03) Comments: some components of IBS on history-- no appendix -- pt doesnt have menses-- Status: Inactive as of 16-Aug-2008 Acute asthma exacerbation (Renamed from Asthma with acute exacerbation) (J45.901, 493.92) Status: Inactive as of 22-Mar-2017 Acute sinusitis, unspecified (J01.90, 461.9) 03-Dec-2011 Status: Inactive as of 18-Dec-2013 Allergic rhinitis due to other allergen (J30.89, 477.8) Comments: gets reactive airway wiht it at times Status: Inactive as of 22-Mar-2017 Benign paroxysmal positional vertigo (H81.10, 386.11) Status: Resolved as of 09-Apr-2011 Bloody stools (K92.1, 578.1) Status: Inactive as of 01-Jul-2015 Breast cancer screening (Z12.39, V76.10) Status: Inactive as of 18-Dec-2013 Calf pain, right (M79.661, 729.5) Status: Inactive as of 22-Mar-2017 Candidiasis, unspecified (B37.9, 112.9) Status: Inactive as of 16-Aug-2008 Cellulitis and abscess of leg, except foot (L03.119, 682.6) Comments: IMPROVED Status: Inactive as of 16-Aug-2008 Chest tightness (R07.89, 786.59) Status: Inactive as of 22-Mar-2017 Costochondritis (M94.0, 733.6) Status: Resolved as of 22-Mar-2017 Cough (R05, 786.2) Status: Inactive as of 22-Mar-2017 Depressive disorder (F32.9, 311) Status: Resolved as of 22-Apr-2013 Dizziness and giddiness (R42, 780.4) Status: Inactive as of 18-Dec-2013 Edema (R60.9, 782.3) Status: Inactive as of 14-Sep-2009 Elevated blood-pressure reading without diagnosis of hypertension (R03.0, 796.2) Status: Resolved as of 09-Apr-2011 Fatigue (R53.83, 780.79) Status: Resolved as of 14-May-2012 Fever (R50.9, 780.60) Comments: SOURCE ? MAYBE SINUS MAYBE PHLEBIS Status: Inactive as of 16-Aug-2008 Fever and chills (R50.9, 780.60) Status: Resolved as of 29-Jul-2009 Fever, unspecified (R50.9, 780.60) Status: Resolved as of 09-Apr-2011 Headache (R51, 784.0) Status: Inactive as of 16-Apr-2012 Hoarse voice quality (784.42) Comments: secondary to gerd?-- along with cough and clearing and throat sx ?- cp and sob too-- flaring asthma Status: Inactive as of 16-Apr-2012 LACERATION, NOS Comments: stitch removalR knee Status: Inactive as of 16-Aug-2008 Medication side effect (T88.7XXA, 995.20) Comments: inhalers caused racing heart Status: Inactive as of 22-Mar-2017 Neck pain (M54.2, 723.1) Comments: MASSAGE HELPED Status: Inactive as of 16-Aug-2008 Need for prophylactic vaccination and inoculation against influenza (Z23, V04.81) Status: Inactive as of 18-Dec-2013 Otalgia, unspecified ear (H92.09, 388.70) Status: Inactive as of 18-Dec-2013 Other abnormal finding of urine (R82.99, 791.9) Status: Inactive as of 16-Apr-2012 Other and unspecified disorders of circulatory system (I99.9, 459.9) Status: Resolved as of 09-Apr-2011 Other specified conditions associated with female genital organs and menstrual cycle (N94.89, 629.89) Comments: on examon chemo for lymphoma-- and damaged ovaries etc and dont really know if there? Status: Inactive as of 16-Aug-2008 Otitis media (H66.90, 382.9) Status: Resolved as of 30-May-2012 Phlebitis and thrombophlebitis of superficial vessels of lower extremities (I80.00, 451.0) Status: Inactive as of 16-Aug-2008 PNEUMONIA D/T STAPHYLOCCUS NEC (482.49) Status: Resolved as of 14-May-2012 poison juan Status: Inactive as of 16-Aug-2008 Poison juan (L23.7, 692.6) 10-Jul-2010 Status: Resolved as of 09-Apr-2011 Pulmonary embolism (I26.99, 415.19) Status: Resolved as of 30-May-2012 Rash (R21, 782.1) Comments: usure of rash- treat with steroid creme if persistent refer torak or do biopsy. Status: Inactive as of 22-Apr-2013 Sinusitis, bacterial (J32.9, 473.9) Status: Inactive as of 22-Mar-2017 spleenectomy Status: Inactive as of 18-Dec-2013 Staphylococcal septicemia, unspecified (038.10) Status: Resolved as of 09-Apr-2011 Tinea cruris (B35.6, 110.3) Status: Resolved as of 10-Dec-2008 Unspecified bacterial pneumonia (J15.9, 482.9) Status: Resolved as of 09-Apr-2011 Unspecified Diagnosis Status: Inactive as of 18-Dec-2013 Unspecified Diagnosis Status: Inactive as of 18-Dec-2013 Upper respiratory infection (J06.9, 465.9) Status: Resolved as of 22-May-2010 Vaginal dryness (N89.8, 625.8) Status: Inactive as of 16-Aug-2008 Vitamin B12 deficiency (non anemic) (E53.8, 266.2) Comments: cont otc for maintenance Status: Resolved as of 09-Apr-2011 Wheeze (R06.2, 786.07) Status: Inactive as of 01-Jul-2015 Witnessed apneic spells (R06.81, 786.03) Comments: sleep study scheduled Status: Inactive as of 01-Jul-2015 Procedures Procedure Dates Details Appendectomy Completed Comments: 1992 ENDOMETRIAL Completed Comments: Biopsy by Dr. Rivero 11/03 Hernia repair Completed Comments: 02/08 LAPAROSCOPY, NOS Completed Comments: 1986 Lumpectomy Completed Comments: 1996 SMALL BOWEL, NOS Completed Comments: Resection, no malignancy 10/05 Splenectomy Completed Comments: 1978 TONSILLECTOMY, NOS Completed Comments: Rt, Dr. Overton, 10/05 Date Value Details 06-Dec-2017 Venous Duplex Lower Extremity Result: Comments: See Note; NOTES: [facility] Cardiovascular Services [address] [place] [address] Venous Duplex US, Unilateral 12/04/17 1529 MR#: [id number] Acct: [id number] Name: MARIAELENA ALMEIDA Rep #: [id number] : 1970 47 From: Gerard Ford MD Attending Dr: Eric John MD Status: REG CLI Ordering Dr: Eric John MD Date: 12/04/17 Location: [facility] Sex: F C Admitted : Reason For Study: Pain LLE Procedure LEFT Exam performed in department. GSV is normal. A preliminary report was called and/or CFV is compressible, spontaneous, phasic, faxed to Dr. John. compe tent, and demonstrates normal augmentation. FV is compressible, spontaneous, phasic, competent and demonstrates normal augmentation. POP V is compressible, spontaneous, phasic, competent and demonstrate s normal augmentation. T/P Trunk is compressible. PTV is compressible. LT PerV is compressible. Difficult to visualize Lt FV distal and calf veins due to patient body habitus Hypoechoic, non vascular s tructure noted anterior prox calf and around the knee (area of bruising/swelling) measuring 4.56cm x 1.82cm. Interpretation Summary Deep veins of the left lower extremity are patent and compressible se gmentally. There is no evidence of left lower extremity deep vein thrombosis. Valvular competence appears intact within the proximal deep venous system on the left . The left greater saphenous vein appe ars patent and compressible segmentally. The left distal femoral vein and calf veins were not well visualized due to the patient's body habitus. A non- vascular, hypoechoic structure is noted in the left proximal, anterior calf and the left knee area, measuring 4.65 cm x 1.82 cm. This may represent a hematoma or seroma. Clinical correlation is advised. Ordering Physician: Eric John Referring Physician: Sho Lozano Performed By: Yuliya Washington, RDCS, RVT 12/06/172124 Date Gerard Ford MD CC: Sho Lozano DO; Eric John MD Date Dictated: 12/04/17 1529 Date Transcri bed: 12/06/172124 Insurance Clerk: Signed 11-Nov-2017 Discharge Instruction Result: Comments: See Note; NOTES: [facility] Medical Records Department [address] [place] [address] Discharge Instruction 11/11/172211 MR#: [id number] Acct: [id number] Name: BREEZY CAMEJOAntoniMARIAELENA L Rep #: [id number] : 1970 47 From: Indio Chisholm DO PCP: Sho Lozano DO Status: REG ER ED Disposition - Plan for ED Patient: Chief Complaint: Lower Extremity Injury Instructio ns: ED Contusion Lower Ext, ED Contusion Hand Prescriptions: Oxycodone HCl/Acetaminophen [Percocet 5/325] 1 tab PO Q6H PRN PRN 3 Days #12 tab PRN Reason: Pain Referrals: Soh Lozano DO [Primary Car e Provider] - Eric John MD [STAFF PHYSICIAN] - 5-7 Days What to do if you have Problems For any increased pain, shortness of breath, bleeding, nausea or vomiting, chest pain, or any unexpected problems, contact your Primary Care Provider. Call [facility] ([phone]) or report to the closest Emergency Room. Call 911 if necessary. 11/11/172212 <Electronically signed by Indio Chisholm DO> Date Indio Chisholm DO Cosigner Signature (If Indicated): Date CC: Sho Lozano DO 11-Nov-2017 Emergency Department Summary Result: Comments: See Note; NOTES: [facility] Medical Records Department [address] [place] [address] Emergency Department Summary 11/11/172208 MR#: [id number] Acct: [id number] Name: MARIAELENA FORMAN Rep #: [id number] : 1970 47 From: Indio Chisholm DO PCP: Sho Lozano DO Status: REG ER - ER Visit Summary Date of Service: 11/11/17 Chief Complaint: [Fall] History of Present Illness: The patient is a 47 F [l presents the emergency department [place] Patient states that she tripped over a crack in the concrete and landed on her kne es. Patient complains of pain mostly in the left knee and pain with ambulation. Patient having a hard time bearing weight secondary to pain. Patient has a history of hypertension and Hodgkin's lymphoma. Physical Examination: [HEENT-PERRLA, EOMI. Cranial nerves II through XII grossly intact. TMs clear. Mucous membranes moist. No adenopathy. Cardiovascular- regular rate and rhythm without murmur or ect opy Lungs-clear to auscultation, chest wall stable without crepitus or subcu emphysema Abdomen-normoactive bowel sounds, soft, nontender, no rebound or rigidity, no peritoneal signs. Extremities-inta ct 4, normal range of motion, normal pulses. Patient does have ecchymosis and bruising to the left knee with soft tissue swelling. She has diffuse pain on palpation. She is ligamentously stable. Right k nee-mild soft tissue swelling minimal bony tenderness on exam. Patient has normal range of motion flexion extension of the knee. Elevation left hand does reveal some ecchymosis and bruising over the luis miguel bryant aspect of the third MCP joint. She has tenderness over the third metacarpal. Neurovascular intact distally. No obvious deformity. Test Results: [X-rays of bilateral knees and left hand obtained deborah wed no fractures.] Emergency Department Course and Treatment: [Patient was given Taurus wrap for her left knee.] Treatment Plan: [Patient was given a prescription for Percocet for pain and advised to fol low-up with her orthopedic surgeon within next 3-5 days] Disposition: [Discharged home in stable condition] Impression: [Mechanical fall Bilateral knee contusions Left hand contusion] This note w as generated with [employer] dictation software. It may contain incorrect words, spelling, and punctuation that were not noted in review of the chart prior to signing ED Disposition - Plan for ED Patient : Chief Complaint: Lower Extremity Injury Referrals: Sho Lozano, DO [Primary Care Provider] - What to do if you have Problems For any increased pain, shortness of breath, bleeding, nausea or vo miting, chest pain, or any unexpected problems, contact your Primary Care Provider. Call [facility] ([phone]) or report to the closest Emergency Room. Call 911 if necessary. 11/11/17 2211 & amp;#60;Electronically signed by Indio Chisholm DO> Date Indio Chisholm DO Cosigner Signature (If Indicated): Date CC: Sho Lozano DO 11-Nov-2017 Knee 3 Views Result: Comments: See Note; NOTES: [facility] Imaging Services [address] [place] [address] Knee 3 Views MR#: [id number] Acct: [id number] Name: MARIAELENA FORMAN Rep #: [id number] : 1970 F 47 From: Olena Gilman MD PCP: Sho Lozano DO Status: REG ER Study: Knee 3 Views Date of Exam: 11/11/17 Exam# [id number] Ordering Dr: Indio Chisholm DO STUDY: X-RAY - RIGHT KNEE REASON FOR EXAM: Female, 47 years old. Fall, knee pain. TECHNIQUE: 3 view(s) of the knee. COMPARISON: None. FINDINGS: Normal visualized distal femur. Normal visu alized proximal tibia and fibula. Normal proximal tibiofibular articulation. Normal medial femorotibial compartment. Normal lateral femorotibial compartment. Normal patellofemoral articulation. The so ft tissue structures are unremarkable. RAD/Knee 3 Views IMPRESSION: Normal x-ray examination of the knee. Electronically Signed: Olena Gilman MD at 21:56 EDT Tel , Service support , CC: Sho Lozano DO; Indio Chisholm DO Insurance Clerk: Signed 11-Nov-2017 Hand Min 3 Views Result: Comments: See Note; NOTES: [facility] Imaging Services [address] [place] [address] Hand Min 3 Views MR#: [id number] Acct: [id number] Name: MARIAELENA FORMAN Rep #: [id number] : 1970 F 47 From: Olena Gilman MD PCP: Sho Lozano DO Status: [facility] Study: Hand Min 3 Views Date of Exam: 11/11/17 Exam# [id number] Ordering Dr: Indio Chisholm DO STUDY: X-RAY - LE FT HAND REASON FOR EXAM: Female, 47 years old. Fall. Pain around second MCP joint. TECHNIQUE: 3 view(s) of the hand. COMPARISON: None. FINDINGS: Slight limitation due to ring on the fourth digit. There is no fracture or dislocation. Joint spaces are well-maintained. Soft tissues and bony structures are unremarkable. ORDER # : [id number] RAD/Hand Min 3 Views IMPRESSION: Normal x-ray examination of the hand. Electronically Signed: Olena Gilman MD at 21:55 EDT Tel , Service support , F ax [phone] CC: Sho Lozano DO; Indio Chisholm DO Insurance Clerk: Signed 11-Nov-2017 Knee 3 Views Result: Comments: See Note; NOTES: [facility] Imaging Services [address] [place] [address] Knee 3 Views MR#: [id number] Acct: [id number] Name: MARIAELENA FORMAN Rep #: [id number] : 1970 F 47 From: Olena Gilman MD PCP: Sho Lozano DO Status: REG Study: Knee 3 Views Date of Exam: 11/11/17 Exam# [id number] Ordering Dr: Indio Chisholm DO STUDY: X-RAY - LEFT KNEE REASON FOR EXAM: Female, 47 years old. Fall, left knee pain. TECHNIQUE: view(s) of the knee. COMPARISON: None. FINDINGS: Normal visualized distal femur. Normal vi sualized proximal tibia and fibula. Normal proximal tibiofibular articulation. Normal medial femorotibial compartment. Normal lateral femorotibial compartment. Normal patellofemoral articulation. Ther e is marked anterior soft tissue swelling. RAD/Knee 3 Views IMPRESSION: Soft tissue swelling. No evidence of fracture. Electronically Signed: Sheri Gilman MD at 21:57 EDT Tel , Service support , CC: Sho Lozano DO; Indio Chisholm DO Insurance Clerk: Signed 31-Oct-2017 Operative Report Result: Comments: See Note; NOTES: [facility] Medical Records Department [address] [place] [address] Operative Report 10/31/17 1552 MR#: [id number] Acct: [id number] Name: MARIAELENA FORMAN Saray Rep #: [id number] : 1970 47 From: Cathleen Fields MD PCP: Sho Lozano DO Status: REG [facility] Location: [place] [address] Report of Operation Date of Procedure: 10/31/17 Pre-Operative Diagn osis: PMB, endometrial polyp Post-Operative Diagnosis: same Surgery/Procedure Performed:: Hysteroscopy and visual dilation and curettage with removal of polypoid appearing tissue with Symphion device De scription of Surgical Findings:: Very small endometrial cavity. Both tubal ostia are identified. There is some polypoid appearing material in the anterior endometrial wall. Normal-appearing cervix, vag isha and endocervical canal. rail setter: Shabnam Cuadra MS3 Type of Anesthesia:: General Anesthesiologist: Carlotta Pond Special Medications: none Specimen's removed: Endometrial curetting Drains: None Estimated Blood Loss (mL): 10 cc Fluids Replaced: LR Description of Procedure: The patient was taken to the OR where she was prepped and draped in dorsal lithotomy position. The weighted speculum was pl aced in the vagina and the anterior lip of the cervix was grasped with a single- tooth tenaculum. A paracervical block was administered with [1% lidocaine with 1-100,000 epinephrine solution]. The cervix was dilated serially with Hegar dilators. The [7mm] hysteroscope was placed into the uterine cavity and the above findings were noted. Bilateral tubal ostia [were] identified. The hysteroscope was rem nav. The Symphion device was readied and inserted. The device was used to remove the polypoid appearing material from the anterior uterine wall and then to do a visual D AND C of the entire uterine cav ity.. The instruments were removed from the vagina. The specimen was handed off and sent to pathology. All sponge and needle counts were correct. Vaginal sweep was performed by me. The patient was awake junior and taken to the recovery room in stable condition. Hysteroscopic fluid deficit was 250 cc of normal saline Grafts/Implants Used: None - Complications None - Admit VTE Documentation VTE Present on Admission: No VTE Mechan Device Prophylaxis: SCD's VTE Pharm Prophylaxis ordered?: No 10/31/17 1604 <Electronically signed by Cathleen Fields MD> Date Cathleen Fields MD CC: Sho Lozano DO; Cathleen Fields MD Signed 31-Oct-2017 Discharge Instruction Result: Comments: See Note; NOTES: [facility] Medical Records Department [address] [place] [address] Instructions for Home/Discharge Instructions 10/31/17 1551 MR#: [id number] Acct: [id number] Name: MARIAELENA FORMAN Rep #: [id number] : 1970 47 From: Cathleen Fields MD PCP: Sho Lozano DO Status: REG SDC Discharge Diet: No Restrictions Discharge Activity: Return to Normal Activity, May Shower, May Take a Tub Bath - in 2 weeks. May resume sexual activity in: 2 weeks Call your doctor if your incision/area has: Continuous Slow Oozing, Sudden Increased Bleeding, Foul Smelling Discharge Call your doctor if you observe: Fever of 101 or Higher, Using more than one pad per hour Allergies/Adverse Reactions: Allergies adhesive tape Allergy (Verified 10/24/17 10:07) Rash hydrocodone bitartrate [From Vicodin] Allergy (Verified 10/24/17 10:07) Rash latex Allergy (Verified 10/24/17 10:07) Rash meloxicam Allergy (Verified 10/24/17 10:07) Rash Medications to take at Discha rge Albuterol IH (ProAir) [Proair Hfa] 2 puff INHALATION Q4H PRN PRN 04/08/15 Budesonide/Formoterol 160/4.5 [Symbicort 160/4.5 Mcg Inhaler (SP)] 2 puff INHALATION BID 04/08/15 Levothyroxine [Synthroid] 25 mcg PO DAILY 04/08/15 Loratadine [Claritin] 10 mg PO PRN PRN 04/08/15 Multivitamin [Multiple Vitamins] 1 each PO DAILY 07/29/16 Clopidogrel Bisulfate [Plavix] 75 mg PO DAILY #30 tablet 07/31/16 Esci talopram Oxalate [Lexapro] 10 mg PO DAILY #30 tablet 07/31/16 Losartan/Hydrochlorothiazide [Losartan-Hctz 100-25 mg Tab] 1 each PO DAILY 10/24/17 Montelukast [Singulair] 10 mg PO DAILY 10/24/17 Primar y Care Physician: Sho Lozano DO [Primary Care Provider] - Test Results: Test results from this visit will be discussed in further detail at your follow- up appointment, if applicable. Please Follo w Up With: Cathleen Fields MD - [phone] When: Dr. Fields's office 2-4 weeks or as needed 10/31/17 2852 <Electronically signed by Cathleen Fields MD> Date Cathleen Fields MD CC: Sho Lozano DO 02-Oct-2017 Venous Duplex Lower Extremity Result: Comments: See Note; NOTES: [facility] Cardiovascular Services [address] [place] [address] Venous Duplex US - Panda Extrem 10/02/17 1307 MR#: [id number] Acct: [id number] Name: MARIAELENA FORMAN Rep #: [id number] : 1970 47 From: Gerard Ford MD Attending Dr: Sho Lozano DO Status: REG CLI Ordering Dr: Sho Lozano DO Date: 10/02/17 Location: [facility] Sex: F C Ad mitted: Reason For Study: SOB RIGHT LEFT GSV is normal. GSV is normal. CFV is compressible, spontaneous, phasic, CFV is compressible, spontaneous, phasic, competent and demonstrates normal compete nt, and demonstrates normal augmentation. augmentation. FV is compressible, spontaneous, phasic, FV is compressible, spontaneous, phasic, competent and demonstrates normal competent and demonstrates nor mal augmentation. augmentation. POP V is compressible, spontaneous, phasic, POP V is compressible, spontaneous, phasic, competent and demonstrates normal competent and demonstrates normal augmentation. augmentation. T/P Trunk is compressible. T/P Trunk is compressible. PTV is compressible. PTV is compressible. RT PerV is compressible. LT PerV is compressible. Procedure Rt and Left Prox Cathy V are diff icult to Exam performed in department. visualize. A preliminary report was called and/or faxed to Dr Lozano. Interpretation Summary Deep veins of the lower extremities are bilaterally patent and compre ssible segmentally. There is no evidence of deep vein thrombosis on either side. Valvular competence appears intact within the proximal deep venous systems bilaterally. The greater saphenous veins appea r bilaterally patent and compressible segmentally. Peroneal veins were not well visualized on either side. __ __ Ordering Physician: Sho Lozano Referring Physician: Sho Lozano Performed By: Lucy Stone, RDCS, RVT 10/02/17 1 508 Date Gerard Ford MD CC: Sho Lozano DO Date Dictated: 10/02/17 1307 Date Transcribed: 10/02/17 1508 Insurance Clerk: Signed 02-Oct-2017 Chest PA and Lateral Result: Comments: See Note; NOTES: [facility] Imaging Services [address] [place] [address] Chest PA and Lateral MR#: [id number] Acct: [id number] Name: MARIAELENA FORMAN Rep #: [id number] : 1970 F 47 From: Arthur Sandhu MD PCP: Sho Lozano DO Status: REG CLI Study: Chest PA and Lateral Date of Exam: 10/02/17 Exam# [id number] Ordering Dr: Sho Lozano DO STUDY: X-RAY CHEST REASON FOR EXAM: Female, 47 years old. Short of breath TECHNIQUE: Frontal and lateral view of the chest. COMPARISON: 04-08-15 FINDINGS: The lungs are c lear and expanded. There is no demonstrated pleural abnormality. Normal size heart. Normal mediastinum and ian. Normal visualized pulmonary arteries. Normal visualized aortic arch and descending thora cic aorta. There are diffuse degenerative changes of the visualized thoracic spine. Normal visualized ribs, clavicles, and shoulders. There is no demonstrated abnormality of the visualized soft tissue structures of the upper abdomen. RAD/Chest PA and Lateral IMPRESSION: There are no acute findings in the chest. Electronically Signed: Arthur andujar MD at 16:49 EDT , Service support , CC: Sho Lozano DO Insurance Clerk: Signed 28-Mar-2017 Abdomen/Pelvis WITH Contrast Result: Comments: See Note; NOTES: [facility] Imaging Services [address] [place] [address] Abdomen/Pelvis WITH Contrast MR#: [id number] Acct: [id number] Name: MARIAELENA FORMAN ep #: [id number] : 1970 F 46 From: Emre Tan MD PCP: Sho Lozano DO Status: REG CLI Study: Abdomen/Pelvis WITH Contrast Date of Exam: 03/28/17 Exam# [id number] Ordering Dr: Sho Lozano DO STUDY: CT ABDOMEN AND PELVIS WITH CONTRAST REASON FOR EXAM: Female, 46 years old. Left lower quadrant pain. The patient has a history of lymphoma. Prior splenectomy. RADIATION DOSAGE (If Supplied By Facility): CTDIvol = ( 19.44 ) mGy, DLP = ( 2372.78 ) mGycm TECHNIQUE: Transaxial images were obtained from the dome of the diaphragm to the symphysis pubis with oral contrast. 100mL ml of Isovue 300 contrast was administered. Sagittal and coronal images were reconstructed. Individualized dose optimization techniques were used for this CT. COMPARISON: Comparison is made with prior stud y dated October 29, 2007. FINDINGS: Calcified granuloma in the left lower lobe. The visualized portions of the heart are within normal limits. There is decreased att enuation of the liver consistent with steatosis. Normal gallbladder and extrahepatic biliary system. Prior splenectomy. There is diffuse atrophy of the pancreas. Normal bilateral adrenal glands. Mary l right kidney. Normal left kidney. Normal visualized stomach. Normal small intestine. There are multiple colonic diverticula consistent with diverticulosis. The appendix is visualized and appears norm al. Normal abdominal aorta. Normal inferior vena cava. There is borderline retroperitoneal lymphadenopathy with enlarged nodes no greater than 10mm in the short axis diameter. Surgical clips are seen i n the retroperitoneal region. This is unchanged. Normal urinary bladder. There is evidence of prior ventral hernia repair with a mesh. Small lymph nodes are seen in the inguinal regions bilaterally. M ild disc space narrowing at the L1-L2 level. CT/Abdomen/Pelvis WITH Contrast IMPRESSION: Prior splenectomy. Fatty infiltration of the liver. Sigm oid diverticula. No acute abnormality is seen. Electronically Signed: Emre Tan MD at 10:10 EST Tel [phone], Service support , CC: Sho Lozano DO Insurance Clerk: Signed 29-Jul-2016 Brain/Head without Contrast Result: Comments: See Note; NOTES: [facility] Imaging Services [address] [place] [address] [place] 4d Brain/Head without Contrast MR#: [id number] Acct: [id number] Name: MARIAELENA FORMAN Rep #: [id number] : 1970 F 45 From: Meme Tolliver MD PCP: Sho Lozano DO Status: REG ER Study: Brain/Head without Contrast Date of Exam: 07/29/16 Exam# [id number] Ordering Dr: Edu Love MD STUDY: CT BRAIN WITHOUT CONTRAST REASON FOR EXAM: Female, 45 years old. Left arm numbness RADIATION DOSAGE (If Supplied By Facility): CTDIvol = ( 44.99 ) mGy, DLP = ( 846.73 ) mGycm TECHNIQU E: Transaxial CT imaging of the brain was performed without administration of intravenous contrast material. Individualized dose optimization techniques were used for this CT. COMPARISON: May 22 CT scan head FINDINGS: Normal soft tissue structures. Normal calvarium. Normal size ventricles and extra-axial spaces for the patient's age. Normal white matter tracts of the cerebral hemispheres. Normal basal ganglia and thalami. Normal brainstem. Normal cerebellum. There is no intracranial hemorrhage. There are no findings of an acute ischemic infarction. N ormal visualized paranasal sinuses. CT/Brain/Head without Contrast IMPRESSION: Normal unenhanced CT scan of the brain. Electronically Signed: Elliott MD at 15:10 EDT Tel , Service support , CC: Sho Lozano DO; Edu Love MD Insurance Clerk: Signed 27-Sep-2015 CTA Chest W/WO Contrast Result: Comments: See Note; NOTES: [facility] Imaging Services [address] [place] [address] [place] 4d CTA Chest W/WO Contrast MR#: [id number] Acct: [id number] Name: MARIAELENA HAMEED Rep #: [id number] : 1970 F 45 From: Geronimo Vallejo DO PCP: Sho Lozano DO Status: REG CLI Study: CTA Chest W/WO Contrast Date of Exam: 09/27/15 Exam# [id number] Ordering Dr: Ranjeet Newman STUDY: CTA CHEST REASON FOR EXAM: Female, 45 years old. Shortness of breath, elevated d-dimer RADIATION DOSAGE (If Supplied By Facility): CTDIvol = ( 54.77 ) mGy, DLP = ( 1524.01 ) mGycm TECHNIQUE: The examination was performed with the intravenous administration of 100ml ml of Isovue 370 contrast material. Post-processing of the angiographic images was performed, with multi planar reformation and 3D reconstruction. Individualized dose optimization techniques were used for this CT. COMPARISON: None. FINDINGS: Normal enhancement of the main pulmonary artery and right and left pulmonary arteries. Suboptimal enhancement of the bilateral peripheral pulmonary arteries. There is no demonstrated pulmonary embolism. Normal thoraci c aorta and visualized great vessels. There is no demonstrated aortic dissection. Normal heart and pericardium. Normal mediastinum. Normal hilar regions. Normal visualized trachea and bronchi. T he lungs are well expanded. Left lower lobe calcified granuloma. Normal pleura. Normal chest wall structures. Mild scoliosis of the upper thoracic region.. Normal visualized upper abdomen. __ IMPRESSION: No demonstrated pulmonary embolism or arterial dissection. Although evaluation is limited due to suboptimal opacification of the pulmonary arteries. L eft lower lobe calcified granuloma. Electronically Signed: Geronimo Vallejo DO at 18:56 EDT Tel [phone], Service support [phone], CC: Sho Lozano DO; Ranjeet Newman Insurance Clerk: Signed 27-Sep-2015 Venous Duplex Lower Extremity Result: Comments: See Note; NOTES: [facility] Cardiovascular Services [address] [place] [address] Venous Duplex US, Unilateral 09/27/15 1544 MR#: [id number] Acct: [id number] Name: MARIAELENA FORMAN Rep #: [id number] : 1970 45 From: Gerard Ford MD Attending Dr: Elida Horton Status: REG CLI Ordering Dr: Elida Horton Date: 09/27/15 Location: [facility] Sex: F C Admitted: Reason For Study: HX DVT RIGHT LEFT CFV is compressible, spontaneous, phasic, CFV is compressible, spontaneous, phasic, competent, and demonstrates normal competent, and demonstra sandeep normal augmentation. augmentation. FV is compressible, spontaneous, phasic, competent and demonstrates normal augmentation. POP V is compressible, spontaneous, phasic, competent and demonstrat es normal augmentation. T/P Trunk is compressible. PTV is compressible. LT PerV is compressible. GSV is dilated and noncompressible for a short segment in the mid thigh and just below the knee. Varicose veins below the knee are dilated and noncompressible. Procedure Exam performed in department. The exam was diagnostic. A preliminary report was called and/or faxed to Dr. Newman. Interpre tation Summary Deep veins of the right lower extremity are patent and compressible segmentally. There is no evidence of right lower extremity deep vein thrombosis. Valvular competence appears intact within the proximal deep venous system on the right . Acute superficial thrombophlebitis is noted involving a short segment of the right great saphenous vein in the mid-thigh and just below the knee . Acute superficial thrombophlebitis is noted involving superficial varicosities below the right knee. _ Ordering Physician: Elida Horton Performed By: Anuj Wyman RVHeath 09/27/15 1635 Date Gerard Ford MD CC: Elida Horton; Sho Lozano DO Date Dictated: 09/27/15 1544 Date Transcribed: 09/27/15 1635 Insurance Clerk: Signed 20-Jun-2015 Sleep Study Report Result: Comments: See Note; NOTES: [facility] [address] [place] [address] Polysomnography with NCPAP MR#: [id number] Acct: [id number] Name: MARIAELENA POTTER Rep #: [id number] : 1970 44 From: Art Arevalo MD PCP: Sho Lozano DO Status: REG CLI Ordering Dr.: Jennifer Willams MD Date: 06/14/15 Sex: F C DATE OF SERVICE: 06/14/19 SCORING RULES: Respiratory events were acquired and scored in accordance with the Recommended Standards and Specifications as outlined in the AASM Manual for the Scoring of Sleep and Associated E vents ( most recent version). Please note that a reference to [facility] AHI in this report is consistent with the current Hypopnea definition according to Medicare Criteria and an [facility] AHI reference is consi stent with the current Hypopnea definition according to the AASM criteria and is recognized by [facility] as the RDI. PROCEDURE: The study was attended continuously by a facilities operations technician. Monitored paramet ers included left and right EOG, frontal, central, and occipital EEG, mental and submental EMG, left and right anterior tibialis EMG, signal ECG waveform, snore, continuous airflow with PAP device jennifer w signal, chest and abdominal plethysmography efforts, oxygen saturation with heart rate, and body positioning with video monitoring. REFERRING PHYSICIAN: Dr. Willams. HISTORY OF PRESENT ILLNESS: The patient is a 44-year-old female with calculated body mass index of 50.1 and [place] Sleepiness Scale score of 11/24. The patient has a known history of sleep disordered breathing as determined b y overnight polysomnogram performed on May 09, 2015, showing overall AHI of 8.9. Note, there was an ApneaLink study. The patient is now present to undergo a CPAP titration to determine appropriate CP AP setting to normalize apnea/hypopnea index and attempt to maintain oxygen saturations greater than 90%. Additional medical history is not available at the time of this dictation. MEDICATIONS REPOR MANUEL AT TIME OF STUDY: Include aspirin, Claritin, multivitamin, ProAir, Symbicort, Synthroid, vitamin D. MASK USED DURING TITRATION: [employer] Simplus full face mask, size medium with heated humidity for comfort. SLEEP STUDY DATA: The overnight titration study began 11:35:37 p.m. and ended 05:36:25 a.m. The total recording time was 360.8 minutes with a sleep period of time of 358.8 mikki sandeep and total sleep time 285.8 minutes, resulting in a sleep efficiency of 79.2%. Sleep latency was 2 minutes with a REM latency of 57 minutes. Sleep stage percentages were as follows, N1 5.4%, N2 46 .3%, N3 22%, REM 26.2% of total sleep. There were a total of 102 arousals during the study, resulting in an overall arousal index of 21.4. The respiratory arousal index was 9.7 while spontaneous arous al index 11.3. Limb movement arousal index was 0.4. CONTINUOUS POSITIVE AIRWAY PRESSURE DATA: The patient was titrated on CPAP settings of 8, 10, 12, 14, 16, 18 cm of water with humidification. The patient was then also titrated on Bilevel settings of 18/14 of 14/10, and 20/14 cm of water with humidification, the patient not being able to tolerate higher CPAP settings. The patient's apnea/hypopn ea index by AASM and CMS guidelines is normalized on CPAP settings of 10 cm of water and greater as well as Bilevel setting of 20/14 cm of water with humidification. The difficult factor in interpreti ng the study is while on CPAP, REM sleep was not recorded with the patient in the supine position. This was only recorded with the patient on a Bilevel setting of 20/14 cm of water with humidificatio n. However, REM sleep was recorded in the off supine position, with the patient having normalization of the apnea/hypopnea index. My concerns are that the patient may have been over titrated, may not need a setting as high as 20/14 cm of water with humidification. On my review of the study, CPAP setting of 10 cm of water with humidification, normalizes REM-related respiratory events with an apnea/ hypopnea index by both AASM and CMS guidelines of 0. On a setting of 14 cm of water with humidification, the AHI and by CMS guidelines is 1.9 by AASM guidelines is 9.3, but this includes the recordin g of supine sleep. Given the low apnea/hypopnea index on the baseline study, it just does not appear appropriate use of Bilevel setting as high as 20/14 cm of water with humidification. Instead it sivakumar ears CPAP settings of 10 cm of water with humidification and greater. All could possibly benefit patient particularly if she sleeps in the off supine position. On all of these settings, mean oxygen sa turations are maintained at/or above 91% and minimum oxygen saturations can fall to 87%, but for a very, very brief duration of time (less than 1 minute). ELECTROCARDIOGRAM DATA: Mean heart rate du ring sleep was 76 beats per minute. Occasional PVCs were present during the study. LIMB MOVEMENT DATA: There were 5 periodic limb movements during the study, resulting in a periodic limb movement i ndex of 1. This number falls within normal range. DIAGNOSIS: Obstructive sleep apnea syndrome, G47.33. IMPRESSION: 1. Again, on multiple CPAP settings, the patient's apnea/hypopnea index is normal ized. Unfortunately, while patient is on CPAP, supine positioning was not recorded simultaneous with a REM sleep. This only occurs on a Bilevel setting of 20/14 which seems very high considering apne a/hypopnea indices are normalized on lower tested CPAP settings. Based on this study, the patient may benefit from AutoPAP device at home, which will allow for fluctuations in CPAP pressure when the p atient is off supine or supine and needing more pressure to control respiratory events. 2. Abnormal sleep architecture likely secondary to first night effect, possible medication effect and titration . RECOMMENDATIONS: 1. Recommend patient will be placed on AutoPAP at a setting of 10-16 cm of water with humidification. Recommend use of CPAP mask as used during this titration. We would recommend download of smartcard in approximately 4 weeks of starting the AutoPAP use. If the apnea/hypopnea index remains greater than 5 then would recommend adjustment of AutoPAP settings to better control re spiratory events. 2. Encouraged weight loss to optimal body mass index. 3. Recommend the patient be advised to avoid activities or medications that could exacerbate sleep disordered breathing. 4. Re commend the patient be advised not to drive or operate heavy machinery when sleepy. INTERPRETING PHYSICIAN: Art Arevalo Jr., Abhay. Art Arevalo MD T: MIGUEL JOB: [id number] CC: Art hutchins MD 1729 1729 06/20/15 1556 <Electronically signed by Art Arevalo MD> Date Art Arevalo MD Co-si gnature (if applicable) Date Signed 20-May-2015 Operative Report Result: Comments: See Note; NOTES: [facility] Medical Records Department [address] [place] [address] Operative Report MR#: [id number] Acct: [id number] Name: MARIAELENA FORMAN Rep #: [id number] : 1970 44 From: Raymundo Ordonez MD PCP: Sho Lozano DO Status: REG CLI DATE OF SERVICE: 05/19/2015 PREOPERATIVE DIAGNOSES: Gastroesophageal reflux disease . Right lower quadrant pain. POSTOPERATIVE DIAGNOSES: Distal esophagitis. Small hiatal hernia. Normal-appearing stomach and duodenum. Multiple sessile polyps, three of the ileocecum, one of the asce nding colon, one of the transverse colon and one in the descending colon, pedunculated polyp of the sigmoid colon and sigmoid diverticulosis. PROCEDURE: Esophagogastroduodenoscopy with antral and d istal esophageal biopsies. Colonoscopy with cecal, ascending colon, transverse colon, descending colon biopsies, and sigmoid snare polypectomy. SURGEON: Raymundo Ordonez M.D. DESCRIPTION OF PROCEDUR E: Time out and informed consent was obtained. A 44-year-old female was taken to endoscopy suite. Oropharynx anesthetized with Cetacaine. She was placed in a left lateral decubitus position. Anesthes ia provided a sedation, GF-130 gastroscope was inserted in the esophageal inlet, advanced without difficulty, proximal, mid, distal esophagus, not remarkable. EG junction was at 37 cm. Small hiatal he rnia noted. There was evidence of some esophagitis with very short area focally of erosion. Scope was advanced into the stomach, that did not appear to be remarkable. The scope was advanced through th e pylorus. First and second portion of the duodenum were inspected, grossly appeared to be normal, perhaps it is mild nodular appearance to a duodenum, so the duodenal biopsy was obtained. The scope was withdrawn into the stomach, antral biopsies were obtained. The scope was retroflexed, the EG junction inspected, the cardia inspected, the small hiatal hernia noted. Excess fluid and air was aspir ated free. The scope was withdrawn to the distal esophagus where distal esophageal biopsies were obtained. Then, excess fluid and air aspirated free. The scope was withdrawn. No further abnormalities. Digital rectal exam performed, normal anal tone. Flexible CF-140 colonoscope inserted into the rectum, advanced quite readily through the colon. The cecum and ileocecal valve area was achieved. [place] el prep was adequate. There was still some liquidy stool and there were 3 sessile polyps immediately within the cecum. Photographs were obtained. These polyps measured at least 1.5 cm to greater, they were very flat, did not feel comfortable attempting excision, could not tell on gross appearance whether these were hyperplastic or adenomatous. I took biopsies of all 3, withdrew the scope and there appeared to be more of a diffuse nature where these polyps were kind of scattered throughout, perhaps too numerous to count. I took biopsies of what appeared to be a more dominant polyp in the ascen ding colon. There appeared to be then one in the proximal transverse colon. As the scope was further withdrawn and there was 1 located in the descending colon. There was sigmoid and descending diverti culosis. Scope was withdrawn and at about 30 cm, there was a pedunculated polyp. Photographs obtained. Snare cautery blend setting of 30 was used to resect this. The polyp was retrieved with a [place] t. The polypectomy site was then treated with a securing clip. Photographs obtained. The scope was withdrawn in the rectum, retroflexed, the anorectal verge inspected that was unremarkable. Excess flu id and air was aspirated free. The procedure was completed. She tolerated it well. IMPRESSION: No source that would correlate with right lower quadrant abdominal pain. Esophagitis noted consistent with small hiatal hernia and reflux. Normal-appearing stomach. Slight nodular appearance to the duodenum with biopsies pending. Multiple flat polyps involved in the cecum, ascending colon, transverse colon and descending colon. Etiology not clear, biopsies pending. These were biopsied and not completely removed due to the multiple nature of the process. Pedunculated polyp of the sigmoid resecte d and retrieved sigmoid diverticulosis. The patient will be notified of pathology results as they become available and then further instructions. We will recommend medical treatment of gastroesopha geal reflux disease including weight loss. The patient will be instructed regarding pathology as far as followup colonoscopy, which will be in no greater than 3 years. Raymundo Ordonez MD T: NT S JOB: [id number] 05/20/15 0555 <Electronically signed by Raymundo Ordonez MD> Date Raymundo Ordonez MD Cosigner Signature (If Indicat ed): Date CC: Sho Lozano DO; Raymundo Ordonez MD Date Dictated: 05/19/15 1008 Date Transcribed: 05/19/15 1008 Insurance Clerk: Signed 13-May-2015 Sleep Study Report Result: Comments: See Note; NOTES: [facility] [address] [place] [address] Unattended Sleep Study MR#: [id number] Acct: [id number] Name: MARIAELENA FORMAN Rep #: [id number] : 1970 44 From: Silverio Nolen MD PCP: Sho Lozano DO Status: REG CLI Ordering Dr.: Sho Lozano DO Date: 05/09/15 Sex: F C DATE OF SERVICE: 016 SCORING RULES: Respiratory events were acquired and scored in accordance with the Recommended Standards and Specifications as outlined in the AASM Manual for the Scoring of Sleep and Associated Events ( most recent version). Please note that a reference to [facility] AHI in this report is consistent with the current Hypopnea definition according to Medicare Criteria and an AASM AHI reference is cons istent with the current Hypopnea definition according to the AASM criteria and is recognized by [facility] as the RDI. PROCEDURE: The study was unattended in the patient's home setting. Monitored parameter s included airflow with nasal pressure transducer, chest and abdominal plethysmography efforts, and oxygen saturation with heart rate. INTRODUCTION: This is an ApneaLink apnea screening study perfo rmed on this 44-year-old female with a history of asthma, gastroesophageal reflux disease, hypothyroidism, and an [place] Sleepiness Scale score of 11 as well as a body mass index of 50.1. ApneaLink apnea screening study was performed for a total of 6 hours and 51 minutes beginning at 10:32 p.m. and ending at 5:24 a.m. The evaluation occurred for 6 hours and 36 minutes. Respiratory rate, heart r ate, and oxygen saturation were monitored. The total AHI during the study was 8.9 and the RDI was 11.8. Average oxygen saturation was 92% with a low of 78% and a baseline during wakefulness was 96%. P ulse rate ranged from 55-104 beats per minute with an average of 73 beats per minute. There were 3 central apneas and 51 hypopneas. IMPRESSION: This is an abnormal ApneaLink screening study consist ent with zjyc-ei-helecodd obstructive sleep apnea. If this is felt to be clinically significant, formal CPAP titration study should be performed. Silverio Nolen MD T: [facility] JOB: [id number] CC: Silverio Nolen MD 32 3205/13/15 1517 <Electronically signed by Silverio Nolen MD> Date Silverio mcclure MD Co-signature (if applicable) Date Signed 18-Apr-2015 Emergency Department Summary Result: Comments: See Note; NOTES: [facility] Medical Records Department [address] [place] [address] Emergency Department Summary MR#: [id number] Acct: [id number] Name: MARIAELENA FORMAN Rep #: [id number] : 1970 44 From: Jesse Barrera MD PCP: Sho Lozano DO Status: [facility] ER DATE OF SERVICE: 04/08/2015 CHIEF COMPLAINT: Chest pain. HISTORY OF MS ESENT ILLNESS: This is a 44-year-old female with history of Hodgkin's lymphoma, pulmonary embolism, PFO, hypothyroidism who complains about 3-4 weeks of coughing and wheezing, some shortness of breat h; however, since yesterday she developed left upper aching chest pain with some radiation to the shoulder. She has no history of coronary artery disease nor does she have any risk factors for coronar y artery disease. She has a history of pulmonary embolism, but states this feels different. There is not a pleuritic component and she has no recent travel. PHYSICAL EXAMINATION: VITAL SIGNS: Afebr ile, vitals are stable. HEART: Regular rate and rhythm. LUNGS: Clear. ABDOMEN: Soft. EXTREMITIES: 2+ equal distal pulses. EMERGENCY DEPARTMENT COURSE: Initial EKG shows normal sinus rhythm with s ome questionable ST-segment changes in the inferior leads; however, there is baseline wander. A repeat EKG shows normal sinus rhythm with normal ST segments at a rate of 69. Lab work was obtained incl uding cardiac enzymes, which are unremarkable. D-dimer is negative. Chest x-ray shows no acute process. I explained this may be due to a component of a chest wall strain or pleuritis, and the patient was advised on supportive care including anti-inflammatories and she was discharged. IMPRESSION: 1. Chest pain. 2. Bronchitis. DISPOSITION: Discharge. Dr. Jesse Barrera MD T: NTS JOB : [id number] 04/18/15 0309 <Electronically signed by Jesse Barrera MD> Date Jesse Barrera MD Cosigner Signature (If Indicated): D ate CC: Sho Lozano DO Date Dictated: 04/08/151722 Date Transcribed: 04/08/151722 Insurance Clerk: Signed 12-Apr-2015 12 Lead Electrocardiogram Result: Comments: See Note; NOTES: [facility] Cardiovascular Services [address] [place] [address] 12 Lead EKG 04/08/15 1608 MR#: [id number] Acct: [id number] Name: MARIAELENA ARROYO Rep #: [id number] : 1970 44 From: Tommie Luciano MD Attending Dr: Status: DEP ER Ordering Dr: Jesse Barrera MD Date: 04/08/15 Location: ED Sex: F C Admitted: Test Re ason : CP Blood Pressure : / mmHG Vent. Rate : 090 BPM Atrial Rate : 090 BPM P-R Int : 176 ms QRS Dur : 096 ms QT Int : 386 ms P-R-T Axes : 052 046 058 degrees QTc Int : 472 ms Normal si nus rhythm Inferior infarct , age undetermined , cannot be excluded Anterolateral infarct , age undetermined , cannot be excluded Abnormal ECG Confirmed by TOMMIE LUCIANO MD ([id number]), art editor PERCY JOHN ([id number]) on 04/12/2015 8:32:04 AM Referred By: SOUTH Confirmed By:TOMMIE LUCIANO MD 04/12/15 0832 Date Tommie Luciano MD CC: Sho Lozano DO Date Dictated: 04/08/15 1608 Date Transcribed: 04/08/151607 Insurance Clerk: Signed 12-Apr-2015 12 Lead Electrocardiogram Result: Comments: See Note; NOTES: [facility] Cardiovascular Services [address] [place] [address] 12 Lead EKG 04/08/15 1715 MR#: [id number] Acct: [id number] Name: MARIAELENA ARROYO Rep #: [id number] : 1970 44 From: Tommie Luciano MD Attending Dr: Status: DEP ER Ordering Dr: Jesse Barrera MD Date: 04/08/15 Location: ED Sex: F C Admitted: Test Re ason : REPEAT Blood Pressure : / mmHG Vent. Rate : 069 BPM Atrial Rate : 069 BPM P-R Int : 186 ms QRS Dur : 100 ms QT Int : 420 ms P-R-T Axes : 049 033 052 degrees QTc Int : 450 ms Mary l sinus rhythm Normal ECG Confirmed by TOMMIE LUCIANO MD ([id number]), art editor PERCY JOHN (56) on 04/12/2015 8:32:21 AM Referred By: CAL Confirmed By:TOMMIE LUCIANO MD 04/12/15 0832 Date Tommie Luciano MD CC: Sho Lozano DO Date Dictated: 04/08/151714 Date Transcribed: 04/08/151714 Insurance Clerk: Signed 08-Apr-2015 Discharge Instruction Result: Comments: See Note; NOTES: [facility] Medical Records Department [address] [place] [address] Discharge Instruction 04/08/151722 MR#: [id number] Acct: [id number] Name: MARIAELENA FORMAN Rep #: [id number] : 1970 44 From: Jesse Barrera MD PCP: Sho Lozano DO Status: REG ER ED Disposition - Plan for ED Patient: Chief Complaint: Chest Lulu n Instructions: ED Chest Pain, Noncardiac What to do if you have Problems For any increased pain, shortness of breath, bleeding, nausea or vomiting, chest pain, or any unexpected problems, conta ct your doctor. Call [facility] ([phone]) or report to the closest Emergency Room. Call 911 if necessary. 04/08/151723 <Electronically signed by Jesse Barrera MD> Da te Jesse Barrera MD Cosigner Signature (If Indicated): Date CC: Sho Lozano DO 08-Apr-2015 Chest PA and Lateral Result: Comments: See Note; NOTES: [facility] Imaging Services [address] [place] [address] Verdana 4d Chest PA and Lateral MR#: [id number] Acct: [id number] Name: MARIAELENA FORMAN Rep #: [id number] : 1970 F 44 From: Darryl Murphy MD PCP: Sho Lozano DO Status: REG ER Study: Chest PA and Lateral Date of Exam: 04/08/15 Exam# [id number] Ordering Dr: Jesse Orona MD STUDY: X-RAY CHEST REASON FOR EXAM: Female, 44 years old. Intermittent chest pain TECHNIQUE: PA and lateral COMPARISON: December 18, 2013 FINDINGS: There is mild interstitial thickening in the mid and lower lung zones. No focal infiltrates are seen. There is tiny calcified granuloma in left lower lobe There is no demonstrated pleura l abnormality. Normal size heart. Normal mediastinum and ian. Normal visualized pulmonary arteries. Normal visualized aortic arch and descending thoracic aorta. Dorsal spine demonstrates mild spo ndylosis. Normal visualized ribs, clavicles, and shoulders. There is no demonstrated abnormality of the visualized soft tissue structures of the upper abdomen. No significant change since prior kelvin dy IMPRESSION: No acute cardiopulmonary pathology Electronically Signed: Darryl Murphy MD at 17:26 EST , Service support , RAD/Chest PA and Lateral IMPRESSION: No acute cardiopulmonary pathology Electronically Signed: Darryl Murphy MD at 17:26 EST Tel , Service support [phone], CC: Jesse Barrera MD; Sho Lozano DO Insurance Clerk: Signed 16-Nov-2014 Spirometry ([id number]) Comments: ok stable Result: 16-Nov-2014 ELECTROCARDIOGRAM, COMPLETE (ECG) ([id number]) Comments: nsr no acute chg Result: [MEASUREMENTS ANALYSIS] Date of Test: 11/16/2014 14:41:53; Heart Rate: 66; MS Interval: 190; QRS: 110; QT Interval: 434; Corrected QT Interval (QTc): 444; P Wave [place]: 23; QRS Wave [place]: 10; T Wave [place] : 21; Blood Pressure: 140/76 [ECG DIAGNOSTIC STATEMENTS] Date of Test: 11/16/2014 14:41:53; Summary: Sinus Rhythm -Nonspecific QRS widening. BORDERLINE 12-Mar-2014 Spirometry ([id number]) Comments: obssturctuce Result: Immunization Name Dates Details Tdap (7 years and up) on: 10-Dec-2008 Comments: Lot #[id number] deltoidgiven by:CDH Family History Unknown Family Member Name Dates Details Father Comments: ETOH, Depression Status: Active Maternal Grandfather Comments: age 62, Brain tumor, ETOH Status: Active Maternal Grandmother Comments: Liver, colon CA, age 60 Status: Active Mother Comments: HTN, Hyperlipidemia, OBesity, Breast CA, Melanoma Status: Active Social History Name Dates Details Current Work/Study Status Comments: Full-time- [employer] Status: Active Living Situation Comments: Single Status: Active Non Drinker/No Alcohol Use Status: Active Non Smoker/No Tobacco Use Status: Active Tobacco use: Never smoker. Status: Active Tobacco use: Never smoker. Comments: radha mullins 5.3.12 Status: Inactive Smoking Status Name Dates Details Never smoker Vital Signs Date Test Result Details [id number] Pulse 73 /min Comments: Pattern: Regular Respiration Rate 20 /min Comments: Pattern: Unlabored O2 SAT 97 % Comments: Room air BP Systolic 142 mm[Hg] Comments: Patient Position: Sitting; Cuff Location: Left Arm; Cuff Size: Large BP Diastolic 102 mm[Hg] Comments: Patient Position: Sitting; Cuff Location: Left Arm; Cuff Size: Large Weight 415 lb Height 72 in Body Mass Index Calculated 56.28 kg/m2 Body Surface Area Calculated 2.91 m2 [id number] Pulse 86 /min Comments: Pattern: Regular O2 SAT 95 % Comments: Room air BP Systolic 142 mm[Hg] Comments: Patient Position: Sitting; Cuff Location: Left Arm; Cuff Size: Large BP Diastolic 88 mm[Hg] Comments: Patient Position: Sitting; Cuff Location: Left Arm; Cuff Size: Large Weight 412 lb Height 72 in Body Mass Index Calculated 55.88 kg/m2 Body Surface Area Calculated 2.9 m2 :51 Pulse 89 /min Comments: Pattern: Regular Respiration Rate 18 /min Comments: Pattern: Unlabored O2 SAT 98 % Comments: Room air BP Systolic 168 mm[Hg] Comments: Patient Position: Sitting; Cuff Location: Left Arm; Cuff Size: Large BP Diastolic 90 mm[Hg] Comments: Patient Position: Sitting; Cuff Location: Left Arm; Cuff Size: Large Weight 407 lb Height 72 in Body Mass Index Calculated 55.2 kg/m2 Body Surface Area Calculated 2.88 m2 :46 Pulse 83 /min Comments: Pattern: Regular Respiration Rate 18 /min Comments: Pattern: Unlabored O2 SAT 94 % Comments: Room air BP Systolic 158 mm[Hg] Comments: Patient Position: Sitting; Cuff Location: Left Arm; Cuff Size: Large BP Diastolic 98 mm[Hg] Comments: Patient Position: Sitting; Cuff Location: Left Arm; Cuff Size: Large Weight 407 lb Height 72 in Body Mass Index Calculated 55.2 kg/m2 Body Surface Area Calculated 2.88 m2 :40 Temperature 97.4 f Comments: Method: Temporal Pulse 81 /min Comments: Pattern: Regular Respiration Rate 16 /min Comments: Pattern: Unlabored O2 SAT 96 % Comments: Room air BP Systolic 124 mm[Hg] Comments: Patient Position: Sitting; Cuff Location: Left Arm; Cuff Size: Standard BP Diastolic 78 mm[Hg] Comments: Patient Position: Sitting; Cuff Location: Left Arm; Cuff Size: Standard Weight 376.125 lb Height 72 in Body Mass Index Calculated 51.01 kg/m2 Body Surface Area Calculated 2.79 m2 :26 Temperature 97.5 f Comments: Method: Temporal Pulse 85 /min Comments: Pattern: Regular Respiration Rate 16 /min Comments: Pattern: Unlabored O2 SAT 96 % Comments: Room air BP Systolic 128 mm[Hg] Comments: Patient Position: Sitting; Cuff Location: Left Arm; Cuff Size: Standard BP Diastolic 80 mm[Hg] Comments: Patient Position: Sitting; Cuff Location: Left Arm; Cuff Size: Standard Weight 376.125 lb Height 72 in Body Mass Index Calculated 51.01 kg/m2 Body Surface Area Calculated 2.79 m2 :56 Pulse 79 /min Comments: Pattern: Regular Respiration Rate 18 /min Comments: Pattern: Unlabored O2 SAT 95 % Comments: Room air BP Systolic 124 mm[Hg] Comments: Patient Position: Sitting; Cuff Location: Left Arm; Cuff Size: Large BP Diastolic 86 mm[Hg] Comments: Patient Position: Sitting; Cuff Location: Left Arm; Cuff Size: Large Weight 377.125 lb Height 72 in Body Mass Index Calculated 51.15 kg/m2 Body Surface Area Calculated 2.79 m2 :53 Temperature 98.3 f Pulse 77 /min Comments: Pattern: Regular Respiration Rate 18 /min Comments: Pattern: Unlabored O2 SAT 98 % Comments: Room air BP Systolic 140 mm[Hg] Comments: Patient Position: Sitting; Cuff Location: Left Arm; Cuff Size: Standard BP Diastolic 86 mm[Hg] Comments: Patient Position: Sitting; Cuff Location: Left Arm; Cuff Size: Standard Weight 369.5 lb Height 72 in Body Mass Index Calculated 50.11 kg/m2 Body Surface Area Calculated 2.77 m2 :02 BP Systolic 140 mm[Hg] Comments: Patient Position: Sitting; Cuff Location: Left Arm; Cuff Size: Standard BP Diastolic 38 mm[Hg] Comments: Patient Position: Sitting; Cuff Location: Left Arm; Cuff Size: Standard :00 Pulse 76 /min Comments: Pattern: Regular Respiration Rate 18 /min Comments: Pattern: Unlabored O2 SAT 97 % Comments: Room air BP Systolic 142 mm[Hg] Comments: Patient Position: Sitting; Cuff Location: Left Arm; Cuff Size: Large BP Diastolic 98 mm[Hg] Comments: Patient Position: Sitting; Cuff Location: Left Arm; Cuff Size: Large Weight 369.5 lb Height 72 in Body Mass Index Calculated 50.11 kg/m2 Body Surface Area Calculated 2.77 m2 :34 Pulse 78 /min Comments: Pattern: Regular Respiration Rate 18 /min Comments: Pattern: Unlabored O2 SAT 94 % Comments: Room air BP Systolic 142 mm[Hg] Comments: Patient Position: Sitting; Cuff Location: Left Arm; Cuff Size: Large BP Diastolic 84 mm[Hg] Comments: Patient Position: Sitting; Cuff Location: Left Arm; Cuff Size: Large Weight 369.25 lb Height 72 in Body Mass Index Calculated 50.08 kg/m2 Body Surface Area Calculated 2.76 m2 :52 Temperature 98.9 f Comments: Method: Oral Pulse 76 /min Comments: Pattern: Regular Respiration Rate 18 /min Comments: Pattern: Unlabored O2 SAT 96 % Comments: Room air BP Systolic 126 mm[Hg] Comments: Patient Position: Sitting; Cuff Location: Left Arm; Cuff Size: Standard BP Diastolic 70 mm[Hg] Comments: Patient Position: Sitting; Cuff Location: Left Arm; Cuff Size: Standard Weight 370.125 lb Height 72 in Body Mass Index Calculated 50.2 kg/m2 Body Surface Area Calculated 2.77 m2 :34 Temperature 97.6 f Comments: Method: Temporal Pulse 72 /min Comments: Pattern: Regular Respiration Rate 16 /min Comments: Pattern: Unlabored O2 SAT 98 % Comments: Room air BP Systolic 128 mm[Hg] Comments: Patient Position: Sitting; Cuff Location: Left Arm; Cuff Size: Standard BP Diastolic 74 mm[Hg] Comments: Patient Position: Sitting; Cuff Location: Left Arm; Cuff Size: Standard Weight 363 lb Height 72 in Body Mass Index Calculated 49.23 kg/m2 Body Surface Area Calculated 2.74 m2 :24 Temperature 98.4 f Comments: Method: Temporal Pulse 76 /min Comments: Pattern: Regular Respiration Rate 16 /min Comments: Pattern: Unlabored O2 SAT 98 % Comments: Room air BP Systolic 140 mm[Hg] Comments: Patient Position: Sitting; Cuff Location: Left Arm; Cuff Size: Standard BP Diastolic 76 mm[Hg] Comments: Patient Position: Sitting; Cuff Location: Left Arm; Cuff Size: Standard Weight 363 lb Height 72 in Body Mass Index Calculated 49.23 kg/m2 Body Surface Area Calculated 2.74 m2 :06 Pulse 80 /min Comments: Pattern: Regular Respiration Rate 20 /min Comments: Pattern: Unlabored O2 SAT 98 % Comments: Room air BP Systolic 122 mm[Hg] Comments: Patient Position: Sitting; Cuff Location: Left Arm; Cuff Size: Large BP Diastolic 82 mm[Hg] Comments: Patient Position: Sitting; Cuff Location: Left Arm; Cuff Size: Large Weight 357.375 lb Height 72 in Body Mass Index Calculated 48.47 kg/m2 Body Surface Area Calculated 2.73 m2 :18 Temperature 98 f Comments: Method: Oral Pulse 69 /min Comments: Pattern: Regular Respiration Rate 18 /min Comments: Pattern: Unlabored O2 SAT 97 % Comments: Room air BP Systolic 142 mm[Hg] BP Diastolic 82 mm[Hg] Weight 353.125 lb Height 72 in Body Mass Index Calculated 47.89 kg/m2 Body Surface Area Calculated 2.71 m2 :45 Pulse 68 /min Comments: Pattern: Regular Respiration Rate 18 /min Comments: Pattern: Unlabored O2 SAT 94 % Comments: Room air BP Systolic 128 mm[Hg] Comments: Patient Position: Sitting; Cuff Location: Left Arm; Cuff Size: Large BP Diastolic 84 mm[Hg] Comments: Patient Position: Sitting; Cuff Location: Left Arm; Cuff Size: Large Weight 350.1875 lb Height 72 in Body Mass Index Calculated 47.49 kg/m2 Body Surface Area Calculated 2.7 m2 :01 Temperature 98.2 f Comments: Method: Temporal Pulse 70 /min Comments: Pattern: Regular Respiration Rate 16 /min Comments: Pattern: Unlabored O2 SAT 98 % Comments: Room air BP Systolic 122 mm[Hg] Comments: Patient Position: Sitting; Cuff Location: Left Arm; Cuff Size: Standard BP Diastolic 74 mm[Hg] Comments: Patient Position: Sitting; Cuff Location: Left Arm; Cuff Size: Standard Weight 352 lb Height 72 in Body Mass Index Calculated 47.74 kg/m2 Body Surface Area Calculated 2.71 m2 :30 Pulse 78 /min Comments: Pattern: Regular Respiration Rate 20 /min Comments: Pattern: Unlabored O2 SAT 98 % Comments: Room air BP Systolic 142 mm[Hg] Comments: Patient Position: Sitting; Cuff Location: Left Arm; Cuff Size: Large BP Diastolic 76 mm[Hg] Comments: Patient Position: Sitting; Cuff Location: Left Arm; Cuff Size: Large Weight 349.375 lb Height 72 in Body Mass Index Calculated 47.38 kg/m2 Body Surface Area Calculated 2.7 m2 :46 Temperature 97.8 f Comments: Method: Oral Pulse 76 /min Comments: Pattern: Regular Respiration Rate 20 /min Comments: Pattern: Unlabored O2 SAT 98 % Comments: Room air BP Systolic 124 mm[Hg] Comments: Patient Position: Sitting; Cuff Location: Left Arm; Cuff Size: Large BP Diastolic 80 mm[Hg] Comments: Patient Position: Sitting; Cuff Location: Left Arm; Cuff Size: Large Weight 335 lb Height 72 in Body Mass Index Calculated 45.43 kg/m2 Body Surface Area Calculated 2.65 m2 :15 Temperature 97.1 f Comments: Method: Oral Pulse 72 /min Comments: Pattern: Regular Respiration Rate 20 /min Comments: Pattern: Unlabored O2 SAT 98 % Comments: Room air BP Systolic 138 mm[Hg] Comments: Patient Position: Sitting; Cuff Location: Left Arm; Cuff Size: Large BP Diastolic 82 mm[Hg] Comments: Patient Position: Sitting; Cuff Location: Left Arm; Cuff Size: Large Weight 335.25 lb Height 72 in Body Mass Index Calculated 45.47 kg/m2 Body Surface Area Calculated 2.65 m2 :50 Pulse 60 /min Comments: Pattern: Regular Respiration Rate 18 /min Comments: Pattern: Unlabored BP Systolic 138 mm[Hg] Comments: Patient Position: Sitting; Cuff Location: Left Arm; Cuff Size: Large BP Diastolic 80 mm[Hg] Comments: Patient Position: Sitting; Cuff Location: Left Arm; Cuff Size: Large Weight 352.1875 lb Height 72 in Body Mass Index Calculated 47.76 kg/m2 Body Surface Area Calculated 2.71 m2 :28 Temperature 96.7 f Comments: Method: Temporal Pulse 76 /min Comments: Pattern: Regular Respiration Rate 16 /min Comments: Pattern: Unlabored O2 SAT 98 % Comments: Room air BP Systolic 126 mm[Hg] Comments: Patient Position: Sitting; Cuff Location: Left Arm; Cuff Size: Standard BP Diastolic 74 mm[Hg] Comments: Patient Position: Sitting; Cuff Location: Left Arm; Cuff Size: Standard Weight 352.5 lb Height 72 in Body Mass Index Calculated 47.81 kg/m2 Body Surface Area Calculated 2.71 m2 :35 Temperature 98 f Comments: Method: Oral Pulse 64 /min Comments: Pattern: Regular Respiration Rate 18 /min Comments: Pattern: Unlabored BP Systolic 130 mm[Hg] Comments: Patient Position: Sitting; Cuff Location: Left Arm; Cuff Size: Large BP Diastolic 92 mm[Hg] Comments: Patient Position: Sitting; Cuff Location: Left Arm; Cuff Size: Large Weight 351.5 lb Height 72 in Body Mass Index Calculated 47.67 kg/m2 Body Surface Area Calculated 2.71 m2 :36 Temperature 96.8 f Comments: Method: Oral Pulse 72 /min Comments: Pattern: Regular Respiration Rate 16 /min Comments: Pattern: Unlabored BP Systolic 122 mm[Hg] Comments: Patient Position: Sitting; Cuff Location: Left Arm; Cuff Size: Standard BP Diastolic 74 mm[Hg] Comments: Patient Position: Sitting; Cuff Location: Left Arm; Cuff Size: Standard Weight 322.5625 lb Height 72 in Body Mass Index Calculated 43.75 kg/m2 Body Surface Area Calculated 2.61 m2 :43 Temperature 98.7 f Comments: Method: Oral Pulse 74 /min Comments: Pattern: Regular O2 SAT 98 % Comments: Room air BP Systolic 138 mm[Hg] Comments: Patient Position: Sitting; Cuff Location: Left Arm; Cuff Size: Standard BP Diastolic 78 mm[Hg] Comments: Patient Position: Sitting; Cuff Location: Left Arm; Cuff Size: Standard Weight 322.5625 lb Height 72 in Body Mass Index Calculated 43.75 kg/m2 Body Surface Area Calculated 2.61 m2 :37 Temperature 99 f Comments: Method: Oral Pulse 78 /min Comments: Pattern: Regular Respiration Rate 18 /min BP Systolic 130 mm[Hg] Comments: Patient Position: Sitting; Cuff Location: Left Arm; Cuff Size: Standard BP Diastolic 78 mm[Hg] Comments: Patient Position: Sitting; Cuff Location: Left Arm; Cuff Size: Standard Weight 322.5625 lb Height 72 in Body Mass Index Calculated 43.75 kg/m2 Body Surface Area Calculated 2.61 m2 :23 Pulse 64 /min Comments: Pattern: Regular Respiration Rate 20 /min Comments: Pattern: Unlabored BP Systolic 128 mm[Hg] Comments: Patient Position: Sitting; Cuff Location: Left Arm; Cuff Size: Large BP Diastolic 78 mm[Hg] Comments: Patient Position: Sitting; Cuff Location: Left Arm; Cuff Size: Large Weight 322.5625 lb Height 72 in Body Mass Index Calculated 43.75 kg/m2 Body Surface Area Calculated 2.61 m2 :14 Temperature 96.4 f Comments: Method: Oral Pulse 74 /min Comments: Pattern: Regular Respiration Rate 16 /min Comments: Pattern: Unlabored BP Systolic 122 mm[Hg] Comments: Patient Position: Sitting; Cuff Location: Left Arm; Cuff Size: Standard BP Diastolic 68 mm[Hg] Comments: Patient Position: Sitting; Cuff Location: Left Arm; Cuff Size: Standard Weight 322.5625 lb Height 72 in Body Mass Index Calculated 43.75 kg/m2 Body Surface Area Calculated 2.61 m2 :34 O2 SAT 98 % Comments: Room air :10 Temperature 98.2 f Comments: Method: Oral Pulse 72 /min Comments: Pattern: Regular Respiration Rate 16 /min Comments: Pattern: Unlabored BP Systolic 118 mm[Hg] Comments: Patient Position: Sitting; Cuff Location: Left Arm; Cuff Size: Standard BP Diastolic 70 mm[Hg] Comments: Patient Position: Sitting; Cuff Location: Left Arm; Cuff Size: Standard Weight 322.5625 lb Height 72 in Body Mass Index Calculated 43.75 kg/m2 Body Surface Area Calculated 2.61 m2 :28 Temperature 98.1 f Comments: Method: Oral Pulse 80 /min Comments: Pattern: Regular Respiration Rate 20 /min Comments: Pattern: Unlabored BP Systolic 128 mm[Hg] Comments: Patient Position: Sitting; Cuff Location: Left Arm; Cuff Size: Large BP Diastolic 82 mm[Hg] Comments: Patient Position: Sitting; Cuff Location: Left Arm; Cuff Size: Large Weight 322.5625 lb Height 72 in Body Mass Index Calculated 43.75 kg/m2 Body Surface Area Calculated 2.61 m2 :06 Temperature 98.1 f Comments: Method: Oral Pulse 68 /min Comments: Pattern: Regular Respiration Rate 20 /min Comments: Pattern: Unlabored O2 SAT 98 % Comments: Room air BP Systolic 132 mm[Hg] Comments: Patient Position: Sitting; Cuff Location: Left Arm; Cuff Size: Large BP Diastolic 78 mm[Hg] Comments: Patient Position: Sitting; Cuff Location: Left Arm; Cuff Size: Large Weight 332.25 lb Height 72 in Body Mass Index Calculated 45.06 kg/m2 Body Surface Area Calculated 2.64 m2 :02 Temperature 98.4 f Comments: Method: Oral Pulse 76 /min Comments: Pattern: Regular Respiration Rate 18 /min O2 SAT 96 % Comments: Room air BP Systolic 128 mm[Hg] Comments: Patient Position: Sitting; Cuff Location: Left Arm; Cuff Size: Standard BP Diastolic 84 mm[Hg] Comments: Patient Position: Sitting; Cuff Location: Left Arm; Cuff Size: Standard Weight 332.25 lb Height 72 in Body Mass Index Calculated 45.06 kg/m2 Body Surface Area Calculated 2.64 m2 :14 Temperature 97.2 f Comments: Method: Oral Pulse 68 /min Comments: Pattern: Regular Respiration Rate 20 /min Comments: Pattern: Unlabored BP Systolic 122 mm[Hg] Comments: Patient Position: Sitting; Cuff Location: Left Arm; Cuff Size: Large BP Diastolic 78 mm[Hg] Comments: Patient Position: Sitting; Cuff Location: Left Arm; Cuff Size: Large Weight 332.25 lb Height 72 in Body Mass Index Calculated 45.06 kg/m2 Body Surface Area Calculated 2.64 m2 :14 BP Systolic 140 mm[Hg] Comments: Patient Position: Sitting; Cuff Location: Left Arm; Cuff Size: Standard BP Diastolic 88 mm[Hg] Comments: Patient Position: Sitting; Cuff Location: Left Arm; Cuff Size: Standard :41 Temperature 98.1 f Comments: Method: Oral Pulse 82 /min Comments: Pattern: Regular Respiration Rate 16 /min Comments: Pattern: Unlabored BP Systolic 132 mm[Hg] Comments: Patient Position: Sitting; Cuff Location: Left Arm; Cuff Size: Standard BP Diastolic 98 mm[Hg] Comments: Patient Position: Sitting; Cuff Location: Left Arm; Cuff Size: Standard Weight 332.25 lb Height 72 in Body Mass Index Calculated 45.06 kg/m2 Body Surface Area Calculated 2.64 m2 :20 Temperature 97.8 f Comments: Method: Oral Pulse 64 /min Comments: Pattern: Regular Respiration Rate 20 /min Comments: Pattern: Unlabored BP Systolic 142 mm[Hg] Comments: Patient Position: Sitting; Cuff Location: Left Arm; Cuff Size: Large BP Diastolic 102 mm[Hg] Comments: Patient Position: Sitting; Cuff Location: Left Arm; Cuff Size: Large Weight 332.25 lb Height 72 in Body Mass Index Calculated 45.06 kg/m2 Body Surface Area Calculated 2.64 m2 :36 Temperature 98.2 f Comments: Method: Oral Pulse 72 /min Comments: Pattern: Regular Respiration Rate 20 /min Comments: Pattern: Unlabored BP Systolic 138 mm[Hg] Comments: Patient Position: Sitting; Cuff Location: Left Arm; Cuff Size: Large BP Diastolic 82 mm[Hg] Comments: Patient Position: Sitting; Cuff Location: Left Arm; Cuff Size: Large Weight 324.5 lb Height 72 in Body Mass Index Calculated 44.01 kg/m2 Body Surface Area Calculated 2.62 m2 :57 Temperature 96.8 f Comments: Method: Oral Pulse 80 /min Comments: Pattern: Regular Respiration Rate 20 /min Comments: Pattern: Unlabored BP Systolic 136 mm[Hg] Comments: Patient Position: Sitting; Cuff Location: Left Arm; Cuff Size: Large BP Diastolic 82 mm[Hg] Comments: Patient Position: Sitting; Cuff Location: Left Arm; Cuff Size: Large Weight 320.3125 lb Height 72 in Body Mass Index Calculated 43.44 kg/m2 Body Surface Area Calculated 2.6 m2 :48 Temperature 97.8 f Comments: Method: Oral Pulse 72 /min Comments: Pattern: Regular Respiration Rate 16 /min Comments: Pattern: Unlabored BP Systolic 122 mm[Hg] Comments: Patient Position: Sitting; Cuff Location: Left Arm; Cuff Size: Standard BP Diastolic 82 mm[Hg] Comments: Patient Position: Sitting; Cuff Location: Left Arm; Cuff Size: Standard Weight 326 lb Height 70.5 in Body Mass Index Calculated 46.11 kg/m2 Body Surface Area Calculated 2.58 m2 :55 Pulse 64 /min Comments: Pattern: Regular Respiration Rate 20 /min Comments: Pattern: Unlabored BP Systolic 122 mm[Hg] Comments: Patient Position: Sitting; Cuff Location: Left Arm; Cuff Size: Large BP Diastolic 82 mm[Hg] Comments: Patient Position: Sitting; Cuff Location: Left Arm; Cuff Size: Large Weight 326 lb Height 70.5 in Body Mass Index Calculated 46.11 kg/m2 Body Surface Area Calculated 2.58 m2 :13 Temperature 97.4 f Pulse 80 /min Comments: Pattern: Regular Respiration Rate 16 /min Comments: Pattern: Unlabored BP Systolic 124 mm[Hg] Comments: Patient Position: Sitting; Cuff Location: Left Arm; Cuff Size: Large BP Diastolic 92 mm[Hg] Comments: Patient Position: Sitting; Cuff Location: Left Arm; Cuff Size: Large Weight 328 lb Height 70.5 in Body Mass Index Calculated 46.4 kg/m2 Body Surface Area Calculated 2.59 m2 :32 Temperature 98.3 f Pulse 76 /min Comments: Pattern: Regular Respiration Rate 18 /min Comments: Pattern: Unlabored BP Systolic 138 mm[Hg] Comments: Patient Position: Sitting; Cuff Location: Left Arm; Cuff Size: Large BP Diastolic 88 mm[Hg] Comments: Patient Position: Sitting; Cuff Location: Left Arm; Cuff Size: Large :01 Temperature 97.7 f Comments: Method: Oral Pulse 76 /min Comments: Pattern: Regular Respiration Rate 20 /min Comments: Pattern: Unlabored BP Systolic 128 mm[Hg] Comments: Patient Position: Sitting; Cuff Location: Left Arm; Cuff Size: Large BP Diastolic 96 mm[Hg] Comments: Patient Position: Sitting; Cuff Location: Left Arm; Cuff Size: Large Weight 322 lb :05 Temperature 98 f Pulse 80 /min Comments: Pattern: Regular Respiration Rate 18 /min Comments: Pattern: Unlabored BP Systolic 122 mm[Hg] Comments: Patient Position: Sitting; Cuff Location: Left Arm; Cuff Size: Large BP Diastolic 88 mm[Hg] Comments: Patient Position: Sitting; Cuff Location: Left Arm; Cuff Size: Large Weight 328 lb :35 Pulse 80 /min Comments: Pattern: Regular Respiration Rate 20 /min Comments: Pattern: Unlabored BP Systolic 150 mm[Hg] Comments: Patient Position: Sitting; Cuff Location: Left Arm; Cuff Size: Large BP Diastolic 82 mm[Hg] Comments: Patient Position: Sitting; Cuff Location: Left Arm; Cuff Size: Large Weight 328 lb :16 Comments: 138/86 2nd bp Pulse 64 /min Comments: Pattern: Regular Respiration Rate 20 /min Comments: Pattern: Unlabored BP Systolic 150 mm[Hg] Comments: Patient Position: Sitting; Cuff Location: Left Arm; Cuff Size: Large BP Diastolic 102 mm[Hg] Comments: Patient Position: Sitting; Cuff Location: Left Arm; Cuff Size: Large Weight 330.5 lb Height 70 in Body Mass Index Calculated 47.42 kg/m2 Body Surface Area Calculated 2.58 m2 :10 Pulse 72 /min Comments: Pattern: Regular Respiration Rate 20 /min Comments: Pattern: Unlabored BP Systolic 128 mm[Hg] Comments: Patient Position: Sitting; Cuff Location: Left Arm; Cuff Size: Large BP Diastolic 78 mm[Hg] Comments: Patient Position: Sitting; Cuff Location: Left Arm; Cuff Size: Large Weight 333.5625 lb Height 71 in Body Mass Index Calculated 46.52 kg/m2 Body Surface Area Calculated 2.62 m2 :24 Temperature 97.9 f Comments: Method: Oral Pulse 72 /min Comments: Pattern: Regular Respiration Rate 16 /min Comments: Pattern: Unlabored BP Systolic 122 mm[Hg] Comments: Patient Position: Sitting; Cuff Location: Left Arm; Cuff Size: Large BP Diastolic 72 mm[Hg] Comments: Patient Position: Sitting; Cuff Location: Left Arm; Cuff Size: Large Weight 331 lb :58 Temperature 98.1 f Comments: Method: Oral Pulse 64 /min Comments: Pattern: Regular Respiration Rate 16 /min Comments: Pattern: Unlabored BP Systolic 122 mm[Hg] Comments: Patient Position: Sitting; Cuff Location: Left Arm; Cuff Size: Large BP Diastolic 82 mm[Hg] Comments: Patient Position: Sitting; Cuff Location: Left Arm; Cuff Size: Large Weight 0 lb Height 0 in Head Circumference 0.00 cm :20 Temperature 97.6 f Comments: Method: Oral Pulse 98 /min Comments: Pattern: Regular Respiration Rate 17 /min Comments: Pattern: Unlabored BP Systolic 132 mm[Hg] Comments: Patient Position: Sitting; Cuff Location: Left Arm; Cuff Size: Standard BP Diastolic 74 mm[Hg] Comments: Patient Position: Sitting; Cuff Location: Left Arm; Cuff Size: Standard Weight 337.1875 lb Height 70 in Body Mass Index Calculated 48.38 kg/m2 Body Surface Area Calculated 2.61 m2 Head Circumference 0.00 cm :18 Pulse 80 /min Comments: Pattern: Regular Respiration Rate 20 /min Comments: Pattern: Unlabored BP Systolic 138 mm[Hg] Comments: Patient Position: Sitting; Cuff Location: Left Arm; Cuff Size: Large BP Diastolic 84 mm[Hg] Comments: Patient Position: Sitting; Cuff Location: Left Arm; Cuff Size: Large Weight 337.1875 lb Height 70 in Body Mass Index Calculated 48.38 kg/m2 Body Surface Area Calculated 2.61 m2 Head Circumference 0.00 cm :11 Temperature 97.3 f Comments: Method: Undefined Pulse 76 /min Comments: Pattern: Regular Respiration Rate 18 /min Comments: Pattern: Undefined BP Systolic 148 mm[Hg] Comments: Patient Position: Sitting; Cuff Location: Left Arm; Cuff Size: Standard BP Diastolic 88 mm[Hg] Comments: Patient Position: Sitting; Cuff Location: Left Arm; Cuff Size: Standard Weight 0 lb Height 0 in Head Circumference 0.00 cm :45 Pulse 76 /min Comments: Pattern: Regular Respiration Rate 20 /min Comments: Pattern: Unlabored BP Systolic 138 mm[Hg] Comments: Patient Position: Sitting; Cuff Location: Right Arm; Cuff Size: Standard BP Diastolic 76 mm[Hg] Comments: Patient Position: Sitting; Cuff Location: Right Arm; Cuff Size: Standard Weight 319.125 lb Height 70 in Body Mass Index Calculated 45.79 kg/m2 Body Surface Area Calculated 2.55 m2 Head Circumference 0.00 cm :04 Pulse 60 /min Comments: Pattern: Regular Respiration Rate 20 /min Comments: Pattern: Unlabored BP Systolic 124 mm[Hg] Comments: Patient Position: Sitting; Cuff Location: Left Arm; Cuff Size: Large BP Diastolic 78 mm[Hg] Comments: Patient Position: Sitting; Cuff Location: Left Arm; Cuff Size: Large Weight 319.125 lb Height 70 in Body Mass Index Calculated 45.79 kg/m2 Body Surface Area Calculated 2.55 m2 Head Circumference 0.00 cm :41 Pulse 76 /min Comments: Pattern: Regular Respiration Rate 18 /min Comments: Pattern: Unlabored O2 SAT 98 % Comments: Room air BP Systolic 126 mm[Hg] Comments: Patient Position: Sitting; Cuff Location: Left Arm; Cuff Size: Standard BP Diastolic 78 mm[Hg] Comments: Patient Position: Sitting; Cuff Location: Left Arm; Cuff Size: Standard Weight 319.125 lb Height 70 in Body Mass Index Calculated 45.79 kg/m2 Body Surface Area Calculated 2.55 m2 Head Circumference 0.00 cm :51 Temperature 98.1 f Comments: Method: Oral Pulse 64 /min Comments: Pattern: Regular Respiration Rate 20 /min Comments: Pattern: Unlabored BP Systolic 128 mm[Hg] Comments: Patient Position: Sitting; Cuff Location: Right Arm; Cuff Size: Standard BP Diastolic 80 mm[Hg] Comments: Patient Position: Sitting; Cuff Location: Right Arm; Cuff Size: Standard Weight 319.125 lb Height 70 in Body Mass Index Calculated 45.79 kg/m2 Body Surface Area Calculated 2.55 m2 Head Circumference 0.00 cm :36 Pulse 80 /min Comments: Pattern: Regular Respiration Rate 16 /min Comments: Pattern: Unlabored BP Systolic 132 mm[Hg] Comments: Patient Position: Sitting; Cuff Location: Right Arm; Cuff Size: Large BP Diastolic 78 mm[Hg] Comments: Patient Position: Sitting; Cuff Location: Right Arm; Cuff Size: Large Weight 319.125 lb Height 70 in Body Mass Index Calculated 45.79 kg/m2 Body Surface Area Calculated 2.55 m2 Head Circumference 0.00 cm :32 Pulse 64 /min Comments: Pattern: Regular Respiration Rate 20 /min Comments: Pattern: Unlabored BP Systolic 128 mm[Hg] Comments: Patient Position: Sitting; Cuff Location: Left Arm; Cuff Size: Large BP Diastolic 82 mm[Hg] Comments: Patient Position: Sitting; Cuff Location: Left Arm; Cuff Size: Large Weight 319.125 lb Height 70 in Body Mass Index Calculated 45.79 kg/m2 Body Surface Area Calculated 2.55 m2 Head Circumference 0.00 cm :09 Pulse 84 /min Comments: Pattern: Regular Respiration Rate 20 /min Comments: Pattern: Unlabored BP Systolic 122 mm[Hg] Comments: Patient Position: Sitting; Cuff Location: Left Arm; Cuff Size: Large BP Diastolic 70 mm[Hg] Comments: Patient Position: Sitting; Cuff Location: Left Arm; Cuff Size: Large Weight 326 lb Height 70 in Body Mass Index Calculated 46.78 kg/m2 Body Surface Area Calculated 2.57 m2 Head Circumference 0.00 cm :31 Pulse 80 /min Comments: Pattern: Regular Respiration Rate 20 /min Comments: Pattern: Unlabored BP Systolic 132 mm[Hg] Comments: Patient Position: Sitting; Cuff Location: Left Arm; Cuff Size: Large BP Diastolic 80 mm[Hg] Comments: Patient Position: Sitting; Cuff Location: Left Arm; Cuff Size: Large Weight 326 lb Height 70 in Body Mass Index Calculated 46.78 kg/m2 Body Surface Area Calculated 2.57 m2 Head Circumference 0.00 cm :40 Pulse 72 /min Comments: Pattern: Regular Respiration Rate 20 /min Comments: Pattern: Unlabored BP Systolic 132 mm[Hg] Comments: Patient Position: Sitting; Cuff Location: Right Arm; Cuff Size: Standard BP Diastolic 84 mm[Hg] Comments: Patient Position: Sitting; Cuff Location: Right Arm; Cuff Size: Standard Weight 326 lb Height 70 in Body Mass Index Calculated 46.78 kg/m2 Body Surface Area Calculated 2.57 m2 Head Circumference 0.00 cm :32 Pulse 60 /min Comments: Pattern: Regular Respiration Rate 16 /min Comments: Pattern: Unlabored BP Systolic 122 mm[Hg] Comments: Patient Position: Sitting; Cuff Location: Left Arm; Cuff Size: Large BP Diastolic 80 mm[Hg] Comments: Patient Position: Sitting; Cuff Location: Left Arm; Cuff Size: Large Weight 326 lb Height 70 in Body Mass Index Calculated 46.78 kg/m2 Body Surface Area Calculated 2.57 m2 Head Circumference 0.00 cm :38 Temperature 98.6 f Comments: Method: Oral Pulse 88 /min Comments: Pattern: Regular Respiration Rate 20 /min Comments: Pattern: Unlabored BP Systolic 122 mm[Hg] Comments: Patient Position: Sitting; Cuff Location: Right Arm; Cuff Size: Standard BP Diastolic 84 mm[Hg] Comments: Patient Position: Sitting; Cuff Location: Right Arm; Cuff Size: Standard Weight 326 lb Height 70 in Body Mass Index Calculated 46.78 kg/m2 Body Surface Area Calculated 2.57 m2 Head Circumference 0.00 cm :45 Pulse 88 /min Comments: Pattern: Regular Respiration Rate 20 /min Comments: Pattern: Unlabored BP Systolic 158 mm[Hg] Comments: Patient Position: Sitting; Cuff Location: Right Arm; Cuff Size: Standard BP Diastolic 96 mm[Hg] Comments: Patient Position: Sitting; Cuff Location: Right Arm; Cuff Size: Standard Weight 326 lb Height 70 in Body Mass Index Calculated 46.78 kg/m2 Body Surface Area Calculated 2.57 m2 Head Circumference 0.00 cm :45 Pulse 60 /min Comments: Pattern: Regular Respiration Rate 16 /min Comments: Pattern: Unlabored BP Systolic 124 mm[Hg] Comments: Patient Position: Sitting; Cuff Location: Left Arm; Cuff Size: Large BP Diastolic 78 mm[Hg] Comments: Patient Position: Sitting; Cuff Location: Left Arm; Cuff Size: Large Weight 300 lb Height 70 in Body Mass Index Calculated 43.05 kg/m2 Body Surface Area Calculated 2.48 m2 Head Circumference 0.00 cm Results Date Description Value Details :39 Crystals, Body Fluid Comments: [facility] [address] [place], [place], [phone] PATH REV Reviewed (Normal) Comments: Negative for malignant cells and crystals.Bloody specimen.Graham Velez M.D. 12/05/17 AMENDED REPORT 12/05/17 1337 PATH REV previously reported as: Will follow SOURCE/BF SYNOVIAL (Normal) CRYSTALS/BF SEE PATH REV (Normal) 9-Gof-912672:39 Culture, Body Fluid Comments: [facility] [address] [place], [place], [address] CUBF See Note (Normal) Comments: AMENDED Results called on 12/05/17 by TED to AUGUSTUS KENDRICK DRNakulRMILLE2 .List Antibiotics Last 48 Hours? UNKList Antibiotics to be Started? UNKGram StainCentrifuged Specimen? Culture performed on centrifuged specimen Gram Stain 4+ Red Blood Cells Rare White Blood Cells No organisms seen Body Fluid CultCulture exhibits no growth. Cult, AnaerobicNo growth in 5 days. 0-Qkg-070469:39 Culture, Body Fluid Comments: [facility] [address]gbx[address] [place], [place], [address] CUBF See Note (Normal) Comments: RESULTS CALLED TO DR JOHN 12/04/17 192 Gok[address] Boo. REPORT READ BACK BY DR JOHN. List Antibiotics Last 48 Hours? UNKList Antibiotics to be Started? UNKGram StainGram Stain 4+ Gram positive diplococci 6-Omf-955289:39 Synovial Fluid RBC, WBC AND Comments: [facility] Whygxjvmvq[address] [place], [place], [address] Diff PATH COM/SYFL May follow (Normal) OTHER CELL /SYN 9 % (Normal) Comments: SYNOVIAL LINING CELLS MONO 3 % (Normal) LYMPH 13 % (Normal) NEUTROPHIL 75 % (Abnormal) Range: 0-25 SYBF MN WBC# 0.524 {10_3/ul} (Normal) SYBF MN WBC% 34.8 % (Normal) SYBF PMN WBC# 0.983 {10_3/ul} (Normal) SYBF PMN WBC% 65.2 % (Normal) SYNOVIAL WBC 1.5070 {10_3uL} Range: 0.000-0.002 (Abnormal) SYNOVIAL RBC 1.487 {10_6/uL} (Abnormal) SYN Tot Cell Ct 1.5130 {10_3_uL} Range: 0.000-0.000 (Abnormal) Comments: This is the Total Number of Nucleated Cell Types in the BodyFluid. SYNOVIAL ALEXSANDRA. Turbid (Normal) SYNOVIAL COLOR Bloody (Normal) SYNOVIAL SOURCE LEFT LEG (Normal) : ENDOMETRIAL See Note (Normal) Comments: [facility] M[address]cjlf[address] [place], [place], [phone] 00 BX/CURETTINGS Comments: Patient: MARIAELENA FORMAN : 1970 (47/F) Acct Num: [id number] Phys: Donnie RODRIGUES,Cathleen Unit Num: [id number] Loc: [facility] Specimen: [id number] Received: 11/01/17 - 1002 Spec T ype: ENDOM BX/C TISSUES TISSUES: Endometrium, NOS GROSS DESCRIPTION Received in fixative is one container labeled with the patient's name and designated endometrial cure ttings. The specimen consists of multiple irregular fragments of light elizabeth soft tissue that in aggregate measure 2 x 1 x 0.1 cm. The specimen is totally submitted in one cassette. / AM:nancy 11/01/17 TC:5 CPT: 32487 HEADER OPERATION: Hysteroscopy, D AND C, resection, Symphion PRE-OP DIAGNOSIS: Postmenopausal bleeding, thickened endometrium TISSUE SUBMITTED: Endometrial curettings MICROSCOPIC DESCRIPTION Slides are reviewed. MICROSCOPIC DIAGNOSIS Endometrial curettings: Mildly disordered proliferative endometrium. Fragments of myometrium. SJ:nancy 11/05/17 Signed Graham Velez 11/05/17 <signature on file> 22-Gdh-405804:30 Type AND Screen Comments: Reason for Type AND Screen/Red Cells: [facility] [address]caiu[address] [place], [address] Antibody Screen NEGATIVE (Normal) BLOOD TYPE GEL B POSITIVE (Normal) 27-Hhr-676916:15 ,Urine Comments: [facility] Y[address]cxbmr[address] [place], [phone] HCGUQUAL Negative {Negative} (Normal) Comments: Very dilute urine specimens, as indicated by a low specificgravity, may not contain access services representative levels of hCG.If is still suspected, a first morning urinespecimen should be collected 48 hours later and tested. 3-Rpp-697258:34 CBC With Differential/Platelet Comments: PATIENT WAS FASTINGPERFORMED BY: [employer] [id number] BY: [facility] HospitalGreenElectric Power CorpAstra Health CenterHhunun1335 [facility] [id number] Immature Grans (Abs) 0.0 {x10E3/uL} (Normal) Range: 0.0-0.1 Immature Granulocytes 0 % (Normal) Baso (Absolute) 0.1 {x10E3/uL} (Normal) Range: 0.0-0.2 Eos (Absolute) 0.2 {x10E3/uL} (Normal) Range: 0.0-0.4 Monocytes(Absolute) 0.7 {x10E3/uL} (Normal) Range: 0.1-0.9 Lymphs (Absolute) 2.6 {x10E3/uL} (Normal) Range: 0.7-3.1 Neutrophils (Absolute) 3.7 {x10E3/uL} (Normal) Range: 1.4-7.0 Basos 1 % (Normal) Eos 3 % (Normal) Monocytes 10 % (Normal) Lymphs 36 % (Normal) Neutrophils 50 % (Normal) Platelets 477 {x10E3/uL} (Abnormal) Range: 150-379 RDW 13.7 % (Normal) Range: 12.3-15.4 MCHC 32.7 g/dL (Normal) Range: 31.5-35.7 MCH 31.0 pg (Normal) Range: 26.6-33.0 MCV 95 fL (Normal) Range: 79-97 Hematocrit 41.9 % (Normal) Range: 34.0-46.6 Hemoglobin 13.7 g/dL (Normal) Range: 11.1-15.9 RBC 4.42 {x10E6/uL} (Normal) Range: 3.77-5.28 WBC 7.2 {x10E3/uL} (Normal) Range: 3.4-10.8 8-Wsx-287776:34 Comp. Metabolic Panel Comments: PATIENT WAS FASTINGPERFORMED BY: [employer] [id number] BY: [facility]6370 [facility] [id number] (14) ALT (SGPT) 39 [iU]/L (Abnormal) Range: 0-32 AST (SGOT) 25 [iU]/L (Normal) Range: 0-40 Alkaline Phosphatase 84 [iU]/L (Normal) Range: 39-117 Bilirubin, Total 0.4 mg/dL (Normal) Range: 0.0-1.2 A/G Ratio 1.5 (Normal) Range: 1.2-2.2 Globulin, Total 2.9 g/dL (Normal) Range: 1.5-4.5 Albumin 4.3 g/dL (Normal) Range: 3.5-5.5 Protein, Total 7.2 g/dL (Normal) Range: 6.0-8.5 Calcium 9.8 mg/dL (Normal) Range: 8.7-10.2 Carbon Dioxide, Total 25 mmol/L (Normal) Range: 20-29 Chloride 102 mmol/L (Normal) Range: 96-106 Potassium 4.7 mmol/L (Normal) Range: 3.5-5.2 Sodium 144 mmol/L (Normal) Range: 134-144 BUN/Creatinine Ratio 15 (Normal) Range: 9-23 eGFR If Africn Am 117 mL/min/1.73 (Normal) eGFR If NonAfricn Am 102 mL/min/1.73 (Normal) Creatinine 0.71 mg/dL (Normal) Range: 0.57-1.00 BUN 11 mg/dL (Normal) Range: 6-24 Glucose 96 mg/dL (Normal) Range: 65-99 6-Uqi-512017:34 NMR LipoProfile Comments: PATIENT WAS FASTINGPERFORMED BY: BN [facility] [address] [id number] BY: CB [facility] Acixfs2694 [facility] [id number] LP-IR Score 87 (Abnormal) Comments: INSULIN RESISTANCE MARKER <--Insulin Sensitive Insulin Resistant--> Percentile in Reference PopulationInsulin Resistance ScoreLP-IR Score Low 25th 50th 75th High <27 27 45 63 >63LP-IR Score is inaccurate if patient is non-fasting. .The LP-IR score is a laboratory developed i [facility] that has beenassociated with insulin resistance and diabetes risk and should beused as one component of a physician's clinical assessment. TheLP-IR score listed above has not been cleared by the [place] Food andDrug Administration. LDL Size 20.3 nm (Normal) Comments: INTERPRETATIVE INFORMATION PARTICLE CONCENTRATION AND SIZE <--Lower CVD Risk Highe r CVD Risk--> LDL AND HDL PARTICLES Percentile in Reference Population HDL-P (total) High 75th 50th 25th Low >34.9 34.9 30.5 26.7 <26.7 . Small LDL-P Low 25th 50th 75th High <117 117 527 839 >839 . LDL Size <-Large (Pattern A)-> <-Small (Pattern B)-> 23.0 20.6 20.5 19.0 Small LDL-P and LDL Size are associated with CVD risk, but not afterLDL-P is taken into account. .These assays were developed and their performance characteristicsdetermined by [employer]. These assays have not been cleared by [place] Food and Drug Administration. The clinical utility of theselaboratory values have not been fully established. Small LDL-P 1429 nmol/L (Abnormal) HDL-P (Total) 30.7 umol/L (Normal) Cholesterol, Total 278 mg/dL Range: 100-199 (Abnormal) Triglycerides 224 mg/dL Range: 0-149 (Abnormal) HDL-C 43 mg/dL (Normal) LDL-C 190 mg/dL Range: 0-99 (Abnormal) Comments: . Optimal < 100 Above optimal 100 - 129 Borderline 1 30 - 159 High 160 - 189 Very high > 189 .LDL-C is inaccurate if patient is non-fasting. LDL-P 2517 nmol/L Comments: Low < 1000 Moderate 1000 - 1299 Borderline-High 1300 - 1599 (Abnormal) High 1600 - 2000 Very High > 2000 -Oct-2017 TSH 2.270 {uIU/mL} Comments: PATIENT WAS FASTINGPERFORMED BY: [address] [id number] BY: [facility] Nlfgqq9[address] [facility] [place] [id number] 11:34 (Normal) Range: 0.450-4.500 03-Oct-2017 Vitamin D, 25-Hydroxy 15.4 ng/mL Comments: PATIENT WAS FASTINGPERFORMED BY: LabCoJoshua V[place] 553097 [facility] [id number] BY: LabMunson [facility] [facility] HospitalDublin [place] [id number] 11:34 (Abnormal) Range: 30.0-100.0 Comments: Vitamin D deficiency has been defined by the [place] of[place]icine and an Endocrine Society practice guideline as alevel of serum 25-OH vitamin D less than 20 ng/mL (1,2).The Endocrine Society went on to further define vitamin Dinsufficiency as a level between 21 and 29 ng/mL (2).1. IOM ([place] of Medicine). 2010. Dietary reference intakes for calcium and D. [place]: The National Academies Press.2. Sharon MF, Adarsh NC, Lisa SANDERSON, et al. Evaluation, treatment, and prevention of vitamin D deficiency: an Endocrine Society clinical practice guideline. JCEM. 2010; 96(7):1911-30. 8-Csl-621962:34 Microscopic Examination Comments: PATIENT NOT FASTINGPERFORMED BY: [facility] Orgeap4085 [facility]in [place] [id number] Bacteria None seen (Normal) Mucus Threads Present (Normal) Epithelial Cells (non renal) 0-10 {/hpf} (Normal) Range: 0 - 10 RBC 0-2 {/hpf} (Normal) Range: 0 - 2 WBC 0-5 {/hpf} (Normal) Range: 0 - 5 0-Gbm-354586:34 URINALYSIS, W/ MICRO Comments: PATIENT NOT FASTINGPERFORMED BY: LabMun[facility] Hospital6370 [facility] InstituteDublin [place] [id number] Information: [id number] (23316) Microscopic Examination See below: (Normal) Comments: Microscopic was indicated and was performed. Nitrite, Urine Negative (Normal) Urobilinogen,Semi-Qn 0.2 mg/dL (Normal) Range: 0.2-1.0 Bilirubin Negative (Normal) Occult Blood Negative (Normal) Ketones Negative (Normal) Glucose Negative (Normal) Protein Negative (Normal) WBC Esterase Trace (Abnormal) Appearance Clear (Normal) Urine-Color Yellow (Normal) pH 7.0 (Normal) Range: 5.0-7.5 Specific [place] 1.012 (Normal) Range: 1.005-1.030 0-Hno-371033:34 MICROALBUMIN: CREATININE RATIO Comments: PATIENT NOT FASTINGPERFORMED BY: [facility] Card SolutionsAstra Health CenterRnlnfp5434 [facility] [id number] (83554) AND (66740) Alb/Creat Ratio <10.6 {mg/g_creat} (Normal) Range: 0.0-30.0 Albumin, Urine <3.0 ug/mL (Normal) Creatinine, Urine 28.2 mg/dL (Normal) 1-Bbs-691348:17 HgA1C , Office (73987) HgA1C , Office 6.0 % (Normal) Range: 4.6 - 7.1 1-Qrn-310194:17 Blood Glucose , Office (27726) Blood Glucose , Office 106 (Normal) 36-Dmg-370325:06 URINE KATHY CULTURE-IDENTIFICATN Comments: PATIENT NOT FASTINGPERFORMED BY: LabCoAstra Health CenterZlokaf5600 [facility] [id number] Information: SRC: (09271) Result 1 BETAGB (Abnormal) Comments: Beta hemolytic Streptococcus, group B50,000- 100,000 colony forming units per mLPenicillin and ampicillin are drugs of choice for treatment ofbeta-hemolytic streptococcal infections. Susceptibility testi ng ofpenicillins and other beta-lactam agents approved by the FDA fortreatment of beta-hemolytic streptococcal infections need not beperformed routinely because nonsusceptible isolates are extremelyrare in any beta-hemolytic streptococcus and have not been reportedfor Streptococcus pyogenes (group A). (CLSI 2011) Urine Final report (Abnormal) Culture,Comprehensive 53-Gdd-574293:07 Urinalysis, Office (64027) UA - LEUKOCYTE ESTERASE Negative (Normal) UA - NITRITE Negative (Normal) URINE UROBILINGN JASON TIMED 2 mg/dL (Normal) UA - PROTEIN Negative mg/dL (Normal) UA - PH 7.5 (Normal) UA - BLOOD Negative (Normal) UA - SPECIFIC GRAVITY 1.015 (Normal) UA - KETONES Negative mg/dL (Normal) UA - BILIRUBIN Negative (Normal) UA - GLUCOSE Negative (Normal) 3-Bzz-585274:26 HEPATITIS PANEL (81494) Comments: PATIENT NOT FASTINGPERFORMED BY: [employer] Tkgiyc4536 [facility] [id number] Hep C Virus Ab 0.1 {s/co_ratio} (Normal) Range: 0.0-0.9 Comments: Negative: < 0.8 Indeterminate: 0.8 - 0.9 Positive: > 0.9 . The CDC recommends that a positive HCV antibody result be followed up with a HCV Nucleic Acid Amplification test (106968). Hep B Core Ab, IgM Negative (Normal) HBsAg Screen Negative (Normal) Hep A Ab, IgM Negative (Normal) 0-Hoj-142149:26 ANTIMITOCHONDRIAL ANTIBODY Comments: PATIENT NOT FASTINGPERFORMED BY: [employer] Yltakq2432 [facility] [id number] (74930) Mitochondrial (M2) Antibody <20.0 {Units} (Normal) Range: 0.0-20.0 Comments: Negative 0.0 - 20.0 Equivocal 20.1 - 24.9 Positive >24.9 . Mitochondrial (M2) Antibodies are found in 90-96% of patients with primary biliary cirrhosis. 7-Kow-636744:26 TRANSFERRIN (44793) Comments: PATIENT NOT FASTINGPERFORMED BY: [employer] Pcxtsx8835 [facility] [id number] Transferrin 310 mg/dL (Normal) Range: 200-370 0-Vuu-194096:26 GGT (GAMMA GLUTAMYLTRANSFERASE) Comments: PATIENT NOT FASTINGPERFORMED BY: [employer] Qdmsby4119 [facility] [id number] (17973) GGT 40 [iU]/L (Normal) Range: 0-60 5-Ogq-306932:26 FERRITIN (42257) Comments: PATIENT NOT FASTINGPERFORMED BY: [employer] Ziqznu7714 [facility] [id number] Ferritin, Serum 55 ng/mL (Normal) Range: 15-150 :26 CMV IGM ANTBDY (22437) Comments: PATIENT NOT FASTINGPERFORMED BY: ARTURO Willson Qxmmfk6318 [facility] [id number] Cytomegalovirus (CMV) Ab, IgM <30.0 AU/mL (Normal) Range: 0.0-29.9 Comments: Negative <30.0 Equivocal 30.0 - 34.9 Positive >34.9 A positive result is generally indicative of acute infection, reactivation or persistent IgM production. :26 CERULOPLASMIN (31406) Comments: PATIENT NOT FASTINGPERFORMED BY: AvelinaMunson Healthcare [facility] Hospital6370 [facility] [id number] Ceruloplasmin 35.3 mg/dL (Normal) Range: 19.0-39.0 : ASM (ANTI SMOOTH MUSCLE Comments: PATIENT NOT FASTINGPERFORMED BY: [facility]6370 [facility] [id number] ANTIBODY) (65648) Actin (Smooth Muscle) Antibody 8 {Units} (Normal) Range: 0-19 Comments: Negative 0 - 19 Weak positive 20 - 30 Moderate to strong positive >30 . Actin Antibodies are found in 52-85% of patients with autoimmune hepatitis or chronic active hepatitis and in 22% of patients with primary biliary cirrhosis. :26 ANTI-LIVER/KIDNEY MICROSOMAL Comments: PATIENT NOT FASTINGPERFORMED BY: [facility]6370 [facility] [id number] ANTIBODY (63381) Liver-Kidney Microsomal Ab <1.0 {Units} (Normal) Range: 0.0-20.0 Comments: Negative 0.0 - 20.0 Equivocal 20.1 - 24.9 Positive >24.9 . LKM type 1 antibodies are detected in patients with autoimmune hepatitis type 2 and in up to 8% of patients with chronic HCV infection. :26 RIKA (ANTINUCLEAR ANTIBODY) Comments: PATIENT NOT FASTINGPERFORMED BY: [facility]6370 [facility] [id number] (09648) RIKA Direct Negative (Normal) 5-Izt-649907:26 ZIXNX-EHWCORWFFNH-JXCQY (16118) Comments: PATIENT NOT FASTINGPERFORMED BY: [facility] Xtssvo0785 Diaz RoadDublin [place] [id number] AFP, Serum, Tumor Marker 6.6 ng/mL (Normal) Range: 0.0-8.3 Comments: Jaciel ECLIA methodology 96-Rzs-428960:05 HgA1C , Office (57412) HgA1C , Office 5.8 % (Normal) Range: 4.6 - 7.1 26-Lpy-208702:07 C-REACTIVE PROTEIN (87352) Comments: PATIENT WAS FASTINGPERFORMED BY: [facility] Ugbuhl3455 Diaz RoadDublin [place] [id number] C-Reactive Protein, Quant 5.0 mg/L (Abnormal) Range: 0.0-4.9 66-Ubf-404809:07 VITAMIN B-12 (CYANOCOBALAMIN) Comments: PATIENT WAS FASTINGPERFORMED BY: [facility] Fcuppm7159 Diaz RoadDublin [place] [id number] (33478) Vitamin B12 870 pg/mL (Normal) Range: 232-1245 37-Jop-150119:07 Sed Rate Erythrocyte (97854) Comments: PATIENT WAS FASTINGPERFORMED BY: [facility] Jxxtgq0617 Diaz RoadDublin [place] [id number] Sedimentation Rate-Westergren 7 mm/h (Normal) Range: 0-32 37-Kae-428351:07 CALCIFIDIOL (59801) VIT D 25 Comments: PATIENT WAS FASTINGPERFORMED BY: [facility] Ebqxls9480 Diaz RoadDublin [place] [id number] Vitamin D, 25-Hydroxy 21.8 ng/mL (Abnormal) Range: 30.0-100.0 Comments: Vitamin D deficiency has been defined by the [place] of[place]icine and an Endocrine Society practice guideline as alevel of serum 25-OH vitamin D less than 20 ng/mL (1,2).The Endocrine Society went on to further define vitamin Dinsufficiency as a level between 21 and 29 ng/mL (2).1. IOM ([place] of Medicine). 2010. Dietary reference intakes for calcium and D. [place]: The National Academies Press.2. Sharon MF, Adarsh NC, Lisa SANDERSON, et al. Evaluation, treatment, and prevention of vitamin D deficiency: an Endocrine Society clinical practice guideline. JCEM. 2010; 96(9):9281-30. 12-Exm-654332:07 METABOLIC PANEL, COMPREHENSIVE Comments: PATIENT WAS FASTINGPERFORMED BY: [employer]70 AppRedeemAtrium Health Cleveland [id number] (24695) ALT (SGPT) 35 [iU]/L (Abnormal) Range: 0-32 AST (SGOT) 24 [iU]/L (Normal) Range: 0-40 Alkaline Phosphatase, S 88 [iU]/L (Normal) Range: 39-117 Bilirubin, Total 0.4 mg/dL (Normal) Range: 0.0-1.2 A/G Ratio 1.5 (Normal) Range: 1.2-2.2 Globulin, Total 3.0 g/dL (Normal) Range: 1.5-4.5 Albumin, Serum 4.6 g/dL (Normal) Range: 3.5-5.5 Protein, Total, Serum 7.6 g/dL (Normal) Range: 6.0-8.5 Calcium, Serum 9.8 mg/dL (Normal) Range: 8.7-10.2 Carbon Dioxide, Total 27 mmol/L (Normal) Range: 18-29 Chloride, Serum 99 mmol/L (Normal) Range: 96-106 Potassium, Serum 4.8 mmol/L (Normal) Range: 3.5-5.2 Sodium, Serum 143 mmol/L (Normal) Range: 134-144 BUN/Creatinine Ratio 15 (Normal) Range: 9-23 eGFR If Africn Am 122 mL/min/1.73 (Normal) eGFR If NonAfricn Am 106 mL/min/1.73 (Normal) Creatinine, Serum 0.67 mg/dL (Normal) Range: 0.57-1.00 BUN 10 mg/dL (Normal) Range: 6-24 Glucose, Serum 86 mg/dL (Normal) Range: 65-99 46-Jcg-269452:07 CBC W/AUTO DIFF WBC (21658) Comments: PATIENT WAS FASTINGPERFORMED BY: [employer]70 [facility] [id number] Immature Grans (Abs) 0.0 {x10E3/uL} (Normal) Range: 0.0-0.1 Immature Granulocytes 0 % (Normal) Baso (Absolute) 0.0 {x10E3/uL} (Normal) Range: 0.0-0.2 Eos (Absolute) 0.2 {x10E3/uL} (Normal) Range: 0.0-0.4 Monocytes(Absolute) 0.7 {x10E3/uL} (Normal) Range: 0.1-0.9 Lymphs (Absolute) 2.4 {x10E3/uL} (Normal) Range: 0.7-3.1 Neutrophils (Absolute) 4.7 {x10E3/uL} (Normal) Range: 1.4-7.0 Basos 1 % (Normal) Eos 2 % (Normal) Monocytes 9 % (Normal) Lymphs 30 % (Normal) Neutrophils 58 % (Normal) Platelets 524 {x10E3/uL} (Abnormal) Range: 150-379 RDW 13.8 % (Normal) Range: 12.3-15.4 MCHC 33.9 g/dL (Normal) Range: 31.5-35.7 MCH 30.8 pg (Normal) Range: 26.6-33.0 MCV 91 fL (Normal) Range: 79-97 Hematocrit 42.8 % (Normal) Range: 34.0-46.6 Hemoglobin 14.5 g/dL (Normal) Range: 11.1-15.9 RBC 4.71 {x10E6/uL} (Normal) Range: 3.77-5.28 WBC 8.0 {x10E3/uL} (Normal) Range: 3.4-10.8 54-Bul-269716:07 LIPID PANEL (92322) Comments: PATIENT WAS FASTINGPERFORMED BY: [facility] Jvrlpp7452 [facility] [id number] LDL/HDL Ratio 3.1 {ratio_units} (Normal) Range: 0.0-3.2 Comments: LDL/HDL Ratio Men Women 1/2 Avg.Risk 1.0 1.5 Av g.Risk 3.6 3.2 2X Avg.Risk 6.2 5.0 3X Avg.Risk 8.0 6.1 LDL Cholesterol Calc 142 mg/dL (Abnormal) Range: 0-99 VLDL Cholesterol Josr 65 mg/dL (Abnormal) Range: 5-40 HDL Cholesterol 46 mg/dL (Normal) Triglycerides 325 mg/dL (Abnormal) Range: 0-149 Cholesterol, Total 253 mg/dL (Abnormal) Range: 100-199 47-Ucr-833680:07 TSH (81401) Comments: PATIENT WAS FASTINGPERFORMED BY: [facility]6370 [facility] [id number] TSH 2.350 {uIU/mL} (Normal) Range: 0.450-4.500 84-Fkq-977111:07 T4, FREE (THYROXINE) (23481) Comments: PATIENT WAS FASTINGPERFORMED BY: [address] [id number] T4,Free(Direct) 1.14 ng/dL (Normal) Range: 0.82-1.77 58-Lro-030035:07 T3, FREE (TRIDOTHYRONINE) (22185) Comments: PATIENT WAS FASTINGPERFORMED BY: [facility]6370 [facility] [id number] Triiodothyronine,Free,Serum 2.7 pg/mL (Normal) Range: 2.0-4.4 97-Uab-497674:16 CBC-Complete Blood Cnt No Diff Comments: [facility] Mcnpefpkna4768 [place], [address] MPV 11.0 fL (Normal) Range: 6.2-12.0 PLT 437 K/mm3 (Normal) Range: 150-450 RDW SD 45.1 fL (Abnormal) Range: 35.1-43.9 RDW CV 13.3 % (Normal) Range: 11.6-14.6 MCHC 32.9 {g/gl} (Normal) Range: 32-36 MCH 31.7 pg (Normal) Range: 27.0-32.0 MCV 96.5 fL (Normal) Range: 81-99 HCT 41.7 % (Normal) Range: 37-47 HGB 13.7 g/dL (Normal) Range: 12.0-15.0 RBC 4.32 {M/mm3} (Normal) Range: 4.2-5.4 WBC 8.0 K/mm3 (Normal) Range: 4.4-11.0 91-Oyf-418929:16 Ferritin Comments: Has Patient had X-rays with Contrast this admission? NIs Patient Taking Vitamins or Folic Acid Supplements? [facility] [address] [place], [address] FERRITIN 28 ng/mL (Normal) Range: 8-252 38-Bet-864185:16 Folates, (Folic Acid) Comments: Has Patient had X-rays with Contrast this admission? NIs Patient Taking Vitamins or Folic Acid Supplements? [facility] [address] [place], [phone] FOLATES 43.90 ng/mL (Abnormal) Range: 3.1-17.5 26-Zjg-089085:16 Free T3 Comments: Has Patient had X-rays with Contrast this admission? NIs Patient Taking Vitamins or Folic Acid Supplements? [facility] [address] [place], [address] FREE T3 2.4 pg/mL (Normal) Range: 2.18-3.98 47-Kvg-240167:16 Iron Comments: Has Patient had X-rays with Contrast this admission? NIs Patient Taking Vitamins or Folic Acid Supplements? [facility] [address] [place], [address](616 IRON 85 ug/dL (Normal) Range: 50-170 00-Hkw-367181:16 Lipid Profile Comments: Has Patient had X-rays with Contrast this admission? NIs Patient Taking Vitamins or Folic Acid Supplements? [facility] [address] [place], [phone] VLDL 29 mg/dL (Normal) Range: 5-40 LDL 69 mg/dL (Normal) Range: 0-130 HDL 46 mg/dL (Normal) Comments: The drugs N-Acetylcysteine and Metamizole may falsely deressthis assay. Reference Range HDL <40 mg/dL Low HDL Cholesterol HDL >or= 60 mg/dL High HDL Cholesterol TRIG 145 mg/dL (Normal) Comments: The drugs N-Acetylcysteine and Metamizole may falsely deressthis assay.Serum Triglycerides Reference Interval Normal <150 mg/dL Borderline high 150 - 199 mg/dL High 200 - 499 mg/dL Very High > or = 500 mg/dL CHOL 144 mg/dL (Normal) Comments: <200 mg/dL Desirable 200-240 mg/dL Borderline >240 mg/dL High Risk 69-Deu-457447:16 Liver Profile Comments: Has Patient had X-rays with Contrast this admission? NIs Patient Taking Vitamins or Folic Acid Supplements? [facility] [address] [place], [phone] D BILI 0.15 mg/dL (Normal) Range: 0.00-0.30 T BILI 0.60 mg/dL (Normal) Range: 0.20-1.00 ALT 32 U/L (Normal) Range: 12-78 ALK P 101 U/L (Normal) Range: 45-117 AST 15 U/L (Normal) Range: 15-37 GLOB 4.0 g/dL (Abnormal) Range: 2.3-3.5 ALB 3.6 g/dL (Normal) Range: 3.4-5.0 T PROT 7.6 g/dL (Normal) Range: 6.4-8.2 88-Crp-426759:16 Magnesium Comments: Has Patient had X-rays with Contrast this admission? NIs Patient Taking Vitamins or Folic Acid Supplements? [facility] [address] [place], [phone]) MG 2.1 mg/dL (Normal) Range: 1.8-2.4 61-Wdb-613003:16 Partial Thromboplast Time Comments: [facility] [address] [place], [address] PTT 28.6 s (Normal) Range: 24.1-36.2 56-Qyu-923365:16 Phosphorus Comments: Has Patient had X-rays with Contrast this admission? NIs Patient Taking Vitamins or Folic Acid Supplements? [facility] [address] [place], [address] PHOS 2.9 mg/dL (Normal) Range: 2.5-4.9 72-Ric-511158:16 Prothrombin Time w/INR Comments: [facility] [address] [place], [address] INR 1.0 (Normal) PROTIME 12.5 s (Normal) Range: 11.7-14.9 :16 T4 Free Direct Comments: Has Patient had X-rays with Contrast this admission? NIs Patient Taking Vitamins or Folic Acid Supplements? [facility] [address] [place], [phone] T4 FREE DIRECT 0.99 ng/dL (Normal) Range: 0.76-1.46 :16 Thyroid Stim Hormone (TSH) Comments: Has Patient had X-rays with Contrast this admission? NIs Patient Taking Vitamins or Folic Acid Supplements? [facility] [address] [place], [address] TSH 1.78 {uIU/mL} (Normal) Range: 0.358-3.74 05-Ihi-029606:16 Vitamin B12 480 pg/mL (Normal) Comments: [facility] [address] [place], [address] Range: 211-911 87-Bqq-453514:40 Basic Metabolic Profile (BMP) Comments: 'TROP' Serial specimen #1, #2, #3, or #4: [facility] [address] [place], [address] GAP 7 (Normal) Range: 5-15 CO2 31.0 mmol/L (Normal) Range: 21.0-32.0 CL 105 mmol/L (Normal) Range: 98-107 K 3.7 mmol/L (Normal) Range: 3.5-5.1 NA 143 mmol/L (Normal) Range: 136-145 CA 8.7 mg/dL (Normal) Range: 8.5-10.1 BUN/CRE 19.0 {RATIO} (Normal) Range: 10-20 Estimated CRCL 103.78 ml/min (Normal) EST GFR - AA 101 mL/min (Normal) Comments: GFR Calc EST GFR 83 mL/min (Normal) Comments: Non- GFR Calc CREAT,SERUM 0.79 mg/dL (Normal) Range: 0.55-1.02 Comments: The validity of the calculated GFR AND GFRAA in patients over70 years has not been determined. Clinical correlation isessential. BUN 15 mg/dL (Normal) Range: 7-18 GLU 101 mg/dL (Normal) Range: 70-110 51-Hwn-614382:40 CBC W/Diff, Automated Comments: [facility] [address] [place], [place], [id number] Absolute Lymph 2.73 {X10_3/ul} (Normal) Range: 0.83-4.51 Absolute Neut 4.7 {X10_3/uL} (Normal) Range: 2.0-7.7 IM GRAN % 0.100 % (Normal) Range: 0.0-0.9 Comments: IG% - Immature Granulocytes (promyelocytes, myelocytes andmetamyelocytes) > 1% indicates that a LEFT SHIFT is Present. BASO% 0.7 % (Normal) Range: 0-1 EO% 2.9 % (Normal) Range: 0-5 MONO% 8.9 % (Normal) Range: 0-10 LY% 32.0 % (Normal) Range: 19-41 NEUT% 55.4 % (Normal) Range: 47-70 MPV 11.4 fL (Normal) Range: 6.2-12.0 PLT 433 K/mm3 (Normal) Range: 150-450 RDW SD 45.8 fL (Abnormal) Range: 35.1-43.9 RDW CV 13.5 % (Normal) Range: 11.6-14.6 MCHC 32.9 {g/gl} (Normal) Range: 32-36 MCH 31.5 pg (Normal) Range: 27.0-32.0 MCV 95.5 fL (Normal) Range: 81-99 HCT 42.5 % (Normal) Range: 37-47 HGB 14.0 g/dL (Normal) Range: 12.0-15.0 RBC 4.45 {M/mm3} (Normal) Range: 4.2-5.4 WBC 8.5 K/mm3 (Normal) Range: 4.4-11.0 37-Mmt-965826:40 Partial Thromboplast Time Comments: [facility] [address] [place], [place], [phone] PTT 26.2 s (Normal) Range: 24.1-36.2 27-Lzm-870642:40 Prothrombin Time w/INR Comments: [facility] [address] [place], [place], [address] INR 0.9 (Normal) PROTIME 11.3 s (Abnormal) Range: 11.7-14.9 86-Xvm-566553:40 Troponin-I Comments: 'TROP' Serial specimen #1, #2, #3, or #4: [address] [place] [address] [address] [place], [place], [address] TROPONIN-I < 0.02 ng/mL (Normal) Comments: TROPONIN-I EXPECTED VALUES <0.05 NEGATIVE 0.06 - 0.59 AT RISK OF ND > OR = 0.60 SUGGEST ND 02-May-20169:44 PAP I-G HPV Hi Risk Comments: CYTOLOGY INFORMATION:- CLINICAL INFORMATION: LMP NA- DATE LMP/MENOPAUSE: LMP- COLLECTION VIAL: Thin Prep Vial- PASTE THINNER SOURCE: CERVICAL- COLLECTION TECHNIQUE: BRUSH ONLY/CERVIX BROOM ONLYCYTOLOGY INFORM ATION:- CLINICAL INFORMATION: LMP NA- DATE LMP/MENOPAUSE: LMP- COLLECTION VIAL: Thin Prep Vial- PASTE THINNER SOURCE: CERVICAL- COLLECTION TECHNIQUE: BRUSH ONLY/CERVIX BROOM ONLYSpecimen Comment: [id number] Comment: No. of containers..01 CYTYC Thin Prep VialLabCorp (refer to report for specific site)refer to report for address and phone number HPV HC,HGH RISK Negative Comments: This high-risk HPV test detects thirteen high-risk types(16/18/31/33/35/39/45/51/52/56/58/59/68) withoutdifferentiation.Performed at: [facility] - [facility] [id number] (Normal) b Director: Marichuy Matt MD, Phone: [phone] at: =G - [facility] [address] [id number] Director: Marichuy Matt MD, Phone: [phone] PAPSMR Comment Comments: The Pap smear is a screening test designed to aid in thedetection of premalignant and malignant conditions of theuterine cervix. It is not a diagnostic procedure andshould not be used as the sole means (Normal) of detecting cervicalcancer. Both false-positive and false-negative reports dooccur. COMM . (Normal) TEST METHOD Comment Comments: This liquid based ThinPrep(R) pap test was screened withthe use of an image guided system. (Normal) PERFORM Comment Comments: Shahnaz Molina, Commercial Artist Lettering (ASCP) (Normal) ADEQ Comment Comments: Satisfactory for evaluation. Endocervical and/or squamous metaplasticcells (endocervical component) are present. (Normal) DIAGN Comment Comments: NEGATIVE FOR INTRAEPITHELIAL LESION AND MALIGNANCY. (Normal) :16 TSH (78208) Comments: PATIENT WAS FASTINGPERFORMED BY: [facility] Dcgfke3250 [facility] [id number] TSH 4.230 {uIU/mL} (Normal) Range: 0.450-4.500 60-Vhb-207455:16 CMV ANTIBODY (55179) Comments: PATIENT WAS FASTINGPERFORMED BY: [facility]comrp Yxrlro4392 [facility] [id number] Cytomegalovirus (CMV) Ab, IgG >10.00 U/mL (Abnormal) Range: 0.00-0.59 Comments: Negative <0.60 Equivocal 0.60 - 0.69 Positive >0.69 43-Fhf-252824:16 CMV IGM ANTBDY (89914) Comments: PATIENT WAS FASTINGPERFORMED BY: Doctor.comrp Nzlfvo3080 [facility] [id number] Cytomegalovirus (CMV) Ab, IgM <30.0 AU/mL (Normal) Range: 0.0-29.9 Comments: Negative <30.0 Equivocal 30.0 - 34.9 Positive >34.9 A positive result is generally indicative of acute infection, reactivation or persistent IgM production. :16 EB ANTIBODY VIRAL CAPSID Comments: PATIENT WAS FASTINGPERFORMED BY: [employer] Bukwvb0116 [facility] [id number] (34229) X2 Interpretation: SPRCS (Normal) Comments: EBV Interpretation Chart . Interpretation EBV-IgM EA(D)-IgG VCA-IgG EBNA-IgG . EBV Seronegative - - - - Early Phase + - - - Acute Primary + +or- + - Infection Convalescence/Past - +or- + + Infection Reactivated +or- + + + Infection + Antibody Present - Antibody Absent EBV Nuclear Antigen Ab, IgG 312.0 U/mL (Abnormal) Range: 0.0-17.9 Comments: Negative <18.0 Equivocal 18.0 - 21.9 Positive >21.9 EBV Ab VCA, IgG >600.0 U/mL (Abnormal) Range: 0.0-17.9 Comments: Negative <18.0 Equivocal 18.0 - 21.9 Positive >21.9 EBV Early Antigen Ab, IgG 71.7 U/mL (Abnormal) Range: 0.0-8.9 Comments: Hepatitis A, Hepatitis C and HIV antibodies may cross-reactwith this assay. Negative < 9.0 Equivoc al 9.0 - 10.9 Positive >10.9 EBV Ab VCA, IgM <36.0 U/mL (Normal) Range: 0.0-35.9 Comments: Negative <36.0 Equivocal 36.0 - 43.9 Positive >43.9 87-Hla-588587:16 LDH (LD) (LACTATE DEHYDROGENASE) Comments: PATIENT WAS FASTINGPERFORMED BY: [employer] Talkwheel [facility] [id number] (87767) LDH 191 [iU]/L (Normal) Range: 119-226 33-Lzy-364716:16 RHEUMATOID FACTOR-QUANT (86310) Comments: PATIENT WAS FASTINGPERFORMED BY: TF[facility] Card SolutionsAstra Health CenterPomalk9929 [facility] [id number] RA Latex Turbid. 7.3 {IU/mL} (Normal) Range: 0.0-13.9 47-Kyz-312240:16 RIKA (ANTINUCLEAR ANTIBODY) Comments: PATIENT WAS FASTINGPERFORMED BY: TF[facility] Card SolutionsAstra Health CenterNutvti3555 [facility] [id number] (22477) RIKA Direct Negative (Normal) 72-Vyf-656532:16 C-REACTIVE PROTEIN (87543) Comments: PATIENT WAS FASTINGPERFORMED BY: [employer] Xapafd7133 [facility] [id number] C-Reactive Protein, Quant 6.4 mg/L (Abnormal) Range: 0.0-4.9 29-Gfc-619329:16 SED RATE ERYTHROCYTE (04088) Comments: PATIENT WAS FASTINGPERFORMED BY: [facility] Hyemjl5706 [facility] [id number] Sedimentation Rate-Westergren 6 mm/h (Normal) Range: 0-32 80-Wbj-392740:16 METABOLIC PANEL, COMPREHENSIVE Comments: PATIENT WAS FASTINGPERFORMED BY: [facility] Ogwtly9898 [facility] [id number] (56681) ALT (SGPT) 29 [iU]/L (Normal) Range: 0-32 AST (SGOT) 20 [iU]/L (Normal) Range: 0-40 Alkaline Phosphatase, S 87 [iU]/L (Normal) Range: 39-117 Bilirubin, Total 0.2 mg/dL (Normal) Range: 0.0-1.2 A/G Ratio 1.4 (Normal) Range: 1.1-2.5 Globulin, Total 3.2 g/dL (Normal) Range: 1.5-4.5 Albumin, Serum 4.5 g/dL (Normal) Range: 3.5-5.5 Protein, Total, Serum 7.7 g/dL (Normal) Range: 6.0-8.5 Calcium, Serum 9.4 mg/dL (Normal) Range: 8.7-10.2 Carbon Dioxide, Total 23 mmol/L (Normal) Range: 18-29 Chloride, Serum 98 mmol/L (Normal) Range: 97-108 Comments: Please note reference interval change Potassium, Serum 4.4 mmol/L (Normal) Range: 3.5-5.2 Comments: Please note reference interval change Sodium, Serum 141 mmol/L (Normal) Range: 134-144 Comments: Please note reference interval change BUN/Creatinine Ratio 26 (Abnormal) Range: 9-23 eGFR If Africn Am 124 mL/min/1.73 (Normal) eGFR If NonAfricn Am 108 mL/min/1.73 (Normal) Creatinine, Serum 0.65 mg/dL (Normal) Range: 0.57-1.00 BUN 17 mg/dL (Normal) Range: 6-24 Glucose, Serum 91 mg/dL (Normal) Range: 65-99 :29 Rapid Strep Test, Office (42878) Rapid Strep Test, Office Negative (Normal) :34 D-Dimer Quantitative (DVT/PE) Comments: [facility] [address] [place], [address] D-DIMER QUANT 1.38 {FEU/ug/m} (Abnormal) Range: 0.27-0.49 Comments: D-Dimer ELEVATED (>0.49): Additional studies and clinicalassessments are indicated to conclude diagnosis of:Deep Vein Thrombosis (DVT) or Pulmonary Embolism (PE)CRITICAL VALUE CALLED TO DR. NEWMAN09/26 4002 Nancy Jaimes.RESULTS READ BACK BY SAME . 13-Tbb-570854:54 URINE KATHY CULTURE (JASON Comments: PATIENT NOT FASTINGPERFORMED BY: LabCoAstra Health CenterFghqea4213 [facility] [id number] Information: [place] [id number] COL COUNT) (67172) Result 1 BETAGB (Abnormal) Comments: Beta hemolytic Streptococcus, group B50,000- 100,000 colony forming units per mLPenicillin and ampicillin are drugs of choice for treatment ofbeta-hemolytic streptococcal infections. Susceptibility testi ng ofpenicillins and other beta-lactam agents approved by the FDA fortreatment of beta-hemolytic streptococcal infections need not beperformed routinely because nonsusceptible isolates are extremelyrare in any beta-hemolytic streptococcus and have not been reportedfor Streptococcus pyogenes (group A). (CLSI 2011)Mixed urogenital flora3,000 Colonies/mL Urine Final report (Abnormal) Culture,Comprehensive :05 Urinalysis, Office (01581) UA - LEUKOCYTE ESTERASE Negative (Normal) UA - NITRITE Negative (Normal) URINE UROBILINGN JASON TIMED Normal mg/dL (Normal) UA - PROTEIN Negative mg/dL (Normal) UA - PH 7 (Normal) UA - BLOOD Negative (Normal) UA - SPECIFIC GRAVITY 1.020 (Normal) UA - KETONES Negative mg/dL (Normal) UA - BILIRUBIN Negative (Normal) UA - GLUCOSE Negative (Normal) 19-May-2015 EGD ([facility]) See Note (Normal) Comments: [facility] [address] [place], [address] 9:16 Comments: Patient: MARIAELENA FORMAN : 1970 (44/F) Acct Num: [id number] Phys: José Luis RODRIGUES,Raymundo Unit Num: [id number] Loc: EN Specimen: [id number] Received: 05/19/15 - 1155 Spec Type: EGD BIOPSY TISSUES TISSUES: COMMENT B-The results of IHC for Helicobacter pylori will be reported separately ([id number]). GROSS DESCRIPTION A - Received is one container labeled with the patient name and designated duodenum. The specimen consists of one irregular fragment of light elizabeth soft tissue that measures 0.3 x 0.2 x 0.1 cm. The specimen is totally submitted in one ca ssette. B - Received is one container labeled with the patient name and designated gastric antrum. The specimen consists of one irregular fragment of light elizabeth soft tissue that measures 0.3 x 0. 2 x 0.1 cm. The specimen is totally submittedin one cassette. C - Received is one container labeled with the patient name and designated distal esophageal biopsy. The specimen consists of multi ple irregular fragments of light elizabeth soft tissue that in aggregate measure 1.5 x 0.2 x 0.1 cm. The specimen is totally submitted in one cassette. D - Received is one container labeled with the patie nt name and designated biopsy sessile polyp cecum. The specimen consists of multiple irregular fragments of light elizabeth soft tissue that in aggregate measure 1.5 x 0.5 x 0.1 cm. The specimen is totally submitted in one cassette. E - Received is one container labeled with the patient name and designated biopsy polyp ascending colon. The specimen consists of two irregular fragments of light elizabeth soft tissue that in aggregate measure 0.5 x 0.2 x 0.1 cm.The specimen is totally submitted in one cassette. F - Received is one container labeled with the patient name and designated biopsy transver se colon polyp. The specimen consists of one irregular fragment of light elizabeth soft tissue that measures 0.3 x 0.3 x 0.1 cm. The specimen is totally submitted in one cassette. G - Received is one container labeled with the patient name and designated biopsy polyp descending colon. The specimen consists of two irregular fragments of light elizabeth soft tissue that in aggregate measure 0.4 x 0.2 x 0 .1 cm.The specimen is totally submitted in one cassette. H - Received is one container labeled with the patient name and designated sigmoid polyp. The specimen consists of a pedunculated polyp me asuring 1 x 0.8 x 0.6 cm and the pedicle measures 0.3 cm in length and 0.4 cm in diameter. The pedicle is inked black. The specimen is longitudinally sectioned and submitted entirely in one cassette. / ANA MARÍA:tyrell 05/19/15 TC:1 CPT:20841 x8 HEADER OPERATION: EGD with biopsy and colonoscopy with biopsy and polypectomy PRE-OP DIAGNOSIS: Rectal bleeding, abdominal pain TISSUE SUBMITTED: A-Duodenu m biopsy, B-Gastric antrum biopsy, C-Distal esophageal biopsy, D-Biopsy sessile polyp cecum, E-Biopsy polyp ascending colon, F-Biopsy polyp transverse colon, G-Biopsy polyp descending colon, H-Sigmoid polyp MICROSCOPIC DESCRIPTION Slides are reviewed. B-The specimen shows fragments of gastric mucosa with chronic inflammatory cellinfiltrates in the lamina propria consisting of lympho cytes and plasma cells, consistent with mild chronic gastritis. MICROSCOPIC DIAGNOSIS A-Duodenum, biopsy: Duodenal mucosa with chronic inflammation, congestion, hemorrhage and gastric metapla kori. B-Gastric antrum, biopsy: Mild gastritis. See microscopic description and comment. C-Distal esophageal biopsy: Fragments of squamous epithelium with minimal chronic inflammati on and reactive changes. D-Sessile polyp, cecum, biopsy: Fragments of hyperplastic polyp. E-Polyp ascending colon, biopsy: Fragments of hyperplastic polyp. F-Transverse colon polyp, bi opsy: Hyperplastic polyp. G-Polyp, descending colon, biopsy: Fragments of hyperplastic polyp. H-Sigmoid polyp, polypectomy: Tubular adenoma. ANA MARÍA:nancy 05/20/15 Signed Graham Velez 05/20/15 <signature on file> 19-May-2015 IMMUNOHISTOCHEMISTRY See Note (Normal) Comments: [facility] [address] [place], [place], [address] 0:00 Comments: Patient: MARIAELENA FORMAN : 1970 (44/F) Acct Num: [id number] Phys: Raymundo Ordonez MD Unit Num: [id number] Loc: EN Specimen: [id number] Received: 05/20/15 - 1133 Spec Type: IMMUNO TISSUES TISSUES: SPECIMEN INFORMATION: Tissue Source: Gastric antrum, biopsy Clinical Info: Rectal bleeding, abdominal pain Specimen Number: [id number] CPT code: 43665 METHODOLOGY: Deparaffinized sections of prefer/formalin-fixed tissue or PAP/DQ stained slides are incubated with monoclonal/polyclonal antibodies/oligonucleotide probes. Localization is made via bi otin free immunoperoxidase method. Appropriate controls are performed and reacted as expected. Results on target cell population are indicated in the following table: RESULTS: ANTIBODY / CLONE RESULT H Pylori (polyclonal) negative These tests were developed and their performance characteristics determined by [facility]. They ma y not have been cleared or approved by the U.S. Food and Drug Administration. The FDA has determined that such clearance or approval is not necessary. INTERPRETATION: Gastric antrum, biopsy: Nega tive for Helicobacter pylori organisms. SJ:tyrell 05/20/15 PHYSICIAN AND INSTITUTION [place] [address] Signed Graham Velez 05/20/15 <signature on file> 7-Nhg-565202:22 METABOLIC PANEL, COMPREHENSIVE Comments: PATIENT WAS FASTINGPERFORMED BY: [facility] Rrhvtt0178 [facility] [id number] ([id number]) ALT (SGPT) 26 [iU]/L (Normal) Range: 0-32 AST (SGOT) 21 [iU]/L (Normal) Range: 0-40 Alkaline Phosphatase, S 90 [iU]/L (Normal) Range: 39-117 Bilirubin, Total 0.4 mg/dL (Normal) Range: 0.0-1.2 A/G Ratio 1.4 (Normal) Range: 1.1-2.5 Globulin, Total 2.9 g/dL (Normal) Range: 1.5-4.5 Albumin, Serum 4.2 g/dL (Normal) Range: 3.5-5.5 Protein, Total, Serum 7.1 g/dL (Normal) Range: 6.0-8.5 Calcium, Serum 9.2 mg/dL (Normal) Range: 8.7-10.2 Carbon Dioxide, Total 24 mmol/L (Normal) Range: 18-29 Chloride, Serum 100 mmol/L (Normal) Range: 97-108 Potassium, Serum 4.6 mmol/L (Normal) Range: 3.5-5.2 Sodium, Serum 142 mmol/L (Normal) Range: 134-144 BUN/Creatinine Ratio 18 (Normal) Range: 9-23 eGFR If Africn Am 125 mL/min/1.73 (Normal) eGFR If NonAfricn Am 108 mL/min/1.73 (Normal) Creatinine, Serum 0.65 mg/dL (Normal) Range: 0.57-1.00 BUN 12 mg/dL (Normal) Range: 6-24 Glucose, Serum 85 mg/dL (Normal) Range: 65-99 1-Xwj-282219:22 CBC W/AUTO DIFF WBC Comments: PATIENT WAS FASTINGPERFORMED BY: [facility]CoAstra [facility] CenterUygzrr4822 [facility] [id number] Information: [id number] ([id number]) Immature Grans (Abs) 0.0 {x10E3/uL} (Normal) Range: 0.0-0.1 Immature Granulocytes 0 % (Normal) Baso (Absolute) 0.0 {x10E3/uL} (Normal) Range: 0.0-0.2 Eos (Absolute) 0.1 {x10E3/uL} (Normal) Range: 0.0-0.4 Monocytes(Absolute) 0.5 {x10E3/uL} (Normal) Range: 0.1-0.9 Lymphs (Absolute) 2.0 {x10E3/uL} (Normal) Range: 0.7-3.1 Neutrophils (Absolute) 3.8 {x10E3/uL} (Normal) Range: 1.4-7.0 Basos 1 % (Normal) Eos 2 % (Normal) Monocytes 8 % (Normal) Lymphs 31 % (Normal) Neutrophils 58 % (Normal) Platelets 507 {x10E3/uL} (Abnormal) Range: 150-379 RDW 13.5 % (Normal) Range: 12.3-15.4 MCHC 33.2 g/dL (Normal) Range: 31.5-35.7 MCH 30.8 pg (Normal) Range: 26.6-33.0 MCV 93 fL (Normal) Range: 79-97 Hematocrit 41.9 % (Normal) Range: 34.0-46.6 Hemoglobin 13.9 g/dL (Normal) Range: 11.1-15.9 RBC 4.51 {x10E6/uL} (Normal) Range: 3.77-5.28 WBC 6.5 {x10E3/uL} (Normal) Range: 3.4-10.8 7-Ncn-637591:22 CALCIFIDIOL (57354) VIT D 25 Comments: PATIENT WAS FASTINGPERFORMED BY: [employer] [facility] [id number] Vitamin D, 25-Hydroxy 18.5 ng/mL (Abnormal) Range: 30.0-100.0 Comments: Vitamin D deficiency has been defined by the [place] [facility] and an Endocrine Society practice guideline as alevel of serum 25-OH vitamin D less than 20 ng/mL (1,2).The Endocrine Society went on to further define vitamin Dinsufficiency as a level between 21 and 29 ng/mL (2).1. IOM ([place] of Medicine). 2010. Dietary reference intakes for calcium and D. [place]: The National Academies Press.2. Sharon MF, Adarsh NC, Lisa SANDERSON, et al. Evaluation, treatment, and prevention of vitamin D deficiency: an Endocrine Society clinical practice guideline. JCEM. 2010; 96(7):1911-30. :22 LIPID PANEL (72287) Comments: PATIENT WAS FASTINGPERFORMED BY: [facility] Rwfaiy5733 [facility] [id number] LDL/HDL Ratio 3.5 {ratio_units} (Abnormal) Range: 0.0-3.2 Comments: LDL/HDL Ratio Men Women 1/2 Avg.Risk 1.0 1.5 Av g.Risk 3.6 3.2 2X Avg.Risk 6.2 5.0 3X Avg.Risk 8.0 6.1 LDL Cholesterol Calc 152 mg/dL (Abnormal) Range: 0-99 VLDL Cholesterol Josr 52 mg/dL (Abnormal) Range: 5-40 HDL Cholesterol 44 mg/dL (Normal) Comments: According to ATP-III Guidelines, HDL-C >59 mg/dL is considered anegative risk factor for CHD. Triglycerides 258 mg/dL (Abnormal) Range: 0-149 Cholesterol, Total 248 mg/dL (Abnormal) Range: 100-199 8-Tna-515063:22 TSH (26330) Comments: PATIENT WAS FASTINGPERFORMED BY: [facility] Msxffw5340 [facility] [id number] TSH 2.760 {uIU/mL} (Normal) Range: 0.450-4.500 8-Yqf-721644:40 Basic Metabolic Profile (BMP) Comments: Serial Specimen #1, #2 or #3? 1'TROP' Serial specimen #1, #2, #3, or #4: 1[facility] [address] [place], [address] GAP 5 (Normal) Range: 5-15 CO2 31.0 mmol/L (Normal) Range: 21.0-32.0 CL 105 mmol/L (Normal) Range: 98-107 K 3.9 mmol/L (Normal) Range: 3.5-5.1 NA 141 mmol/L (Normal) Range: 136-145 CA 8.4 mg/dL (Abnormal) Range: 8.5-10.1 BUN/CRE 15.2 {RATIO} (Normal) Range: 10-20 Estimated CRCL 83.68 ml/min (Normal) EST GFR - AA 78 mL/min (Normal) Comments: GFR Calc EST GFR 65 mL/min (Normal) Comments: Non- GFR Calc CREAT,SERUM 0.99 mg/dL (Normal) Range: 0.55-1.20 Comments: The validity of the calculated GFR AND GFRAA in patients over70 years has not been determined. Clinical correlation isessential. BUN 15 mg/dL (Normal) Range: 7-18 GLU 89 mg/dL (Normal) Range: 70-110 1-Txy-025954:40 CBC W/Diff, Automated Comments: [facility] [address] [place], [address] Absolute Lymph 2.66 {X10_3/ul} (Normal) Range: 0.83-4.51 Absolute Neut 3.8 {X10_3/uL} (Normal) Range: 2.0-7.7 IM GRAN % 0.300 % (Normal) Range: 0.0-0.9 Comments: IG% - Immature Granulocytes (promyelocytes, myelocytes andmetamyelocytes) > 1% indicates that a LEFT SHIFT is Present. BASO% 0.8 % (Normal) Range: 0-1 EO% 2.4 % (Normal) Range: 0-5 MONO% 11.1 % (Abnormal) Range: 0-10 LY% 35.3 % (Normal) Range: 19-41 NEUT% 50.1 % (Normal) Range: 47-70 MPV 10.3 fL (Normal) Range: 6.2-12.0 PLT 456 K/mm3 (Abnormal) Range: 150-450 RDW SD 46.8 fL (Abnormal) Range: 35.1-43.9 RDW CV 13.3 % (Normal) Range: 11.6-14.6 MCHC 32.1 {g/gl} (Normal) Range: 32-36 MCH 31.0 pg (Normal) Range: 27.0-32.0 MCV 96.6 fL (Normal) Range: 81-99 HCT 42.7 % (Normal) Range: 37-47 HGB 13.7 g/dL (Normal) Range: 12.0-15.0 RBC 4.42 {M/mm3} (Normal) Range: 4.2-5.4 WBC 7.5 K/mm3 (Normal) Range: 4.4-11.0 5-Lmv-624086:40 CK-MB Quantitative and Index Comments: Serial Specimen #1, #2 or #3? 1'TROP' Serial specimen #1, #2, #3, or #4: [facility] [address] [place], [place], [id number] CKRI 0.7 % (Normal) Range: 0.0-1.4 Comments: RELATIVE INDEX >1.5% IS PRESUMPTIVELY POSITIVE CPKMB 0.8 ng/mL (Normal) Range: 0.0-5.0 Comments: CK-MB and RI Interpretation MB Relative Index Non-AMI <or= 5 NA Indeterminate > 5 <or= 4 AMI > 5 > 4 CPK TOTAL 120 U/L (Normal) Range: 26-192 :40 D-Dimer Quantitative (DVT/PE) Comments: [facility] Bwnxdyhuiu8369 [facility] [place], [address] D-DIMER QUANT 0.27 {FEU/ug/m} (Normal) Range: 0.27-0.49 Comments: NORMAL D-Dimer level (<0.50) indicates no DVT or PE. :40 Troponin-I Comments: Serial Specimen #1, #2 or #3? 1'TROP' Serial specimen #1, #2, #3, or #4: [facility] Pknpiolbas3742 [facility] [place], [address] TROPONIN-I < 0.02 ng/mL (Normal) Comments: TROPONIN-I EXPECTED VALUES <0.05 NEGATIVE 0.06 - 0.59 AT RISK OF ND > OR = 0.60 SUGGEST ND 59-Jhd-849529:21 METABOLIC PANEL, COMPREHENSIVE Comments: PATIENT NOT FASTINGPERFORMED BY: [facility] Mwhock6824 [facility] [id number] (20137) ALT (SGPT) 22 [iU]/L (Normal) Range: 0-32 AST (SGOT) 17 [iU]/L (Normal) Range: 0-40 Alkaline Phosphatase, S 88 [iU]/L (Normal) Range: 39-117 Bilirubin, Total 0.3 mg/dL (Normal) Range: 0.0-1.2 A/G Ratio 1.4 (Normal) Range: 1.1-2.5 Globulin, Total 2.9 g/dL (Normal) Range: 1.5-4.5 Albumin, Serum 4.2 g/dL (Normal) Range: 3.5-5.5 Protein, Total, Serum 7.1 g/dL (Normal) Range: 6.0-8.5 Calcium, Serum 9.4 mg/dL (Normal) Range: 8.7-10.2 Carbon Dioxide, Total 24 mmol/L (Normal) Range: 18-29 Chloride, Serum 100 mmol/L (Normal) Range: 97-108 Potassium, Serum 4.9 mmol/L (Normal) Range: 3.5-5.2 Sodium, Serum 139 mmol/L (Normal) Range: 134-144 BUN/Creatinine Ratio 22 (Normal) Range: 9-23 eGFR If Africn Am 107 mL/min/1.73 (Normal) eGFR If NonAfricn Am 93 mL/min/1.73 (Normal) Creatinine, Serum 0.78 mg/dL (Normal) Range: 0.57-1.00 BUN 17 mg/dL (Normal) Range: 6-24 Glucose, Serum 92 mg/dL (Normal) Range: 65-99 24-Ina-877989:21 CBC W/AUTO DIFF WBC Comments: PATIENT NOT FASTINGPERFORMED BY: [facility] Gdzztg9975 [facility] [id number] Information: [id number] (38594) Immature Grans (Abs) 0.0 {x10E3/uL} (Normal) Range: 0.0-0.1 Immature Granulocytes 0 % (Normal) Baso (Absolute) 0.1 {x10E3/uL} (Normal) Range: 0.0-0.2 Eos (Absolute) 0.2 {x10E3/uL} (Normal) Range: 0.0-0.4 Monocytes(Absolute) 0.7 {x10E3/uL} (Normal) Range: 0.1-0.9 Lymphs (Absolute) 2.6 {x10E3/uL} (Normal) Range: 0.7-3.1 Neutrophils (Absolute) 3.7 {x10E3/uL} (Normal) Range: 1.4-7.0 Basos 1 % (Normal) Eos 3 % (Normal) Monocytes 10 % (Normal) Lymphs 35 % (Normal) Neutrophils 51 % (Normal) Platelets 494 {x10E3/uL} (Abnormal) Range: 150-379 RDW 13.6 % (Normal) Range: 12.3-15.4 MCHC 33.5 g/dL (Normal) Range: 31.5-35.7 MCH 30.3 pg (Normal) Range: 26.6-33.0 MCV 90 fL (Normal) Range: 79-97 Hematocrit 40.6 % (Normal) Range: 34.0-46.6 Hemoglobin 13.6 g/dL (Normal) Range: 11.1-15.9 RBC 4.49 {x10E6/uL} (Normal) Range: 3.77-5.28 WBC 7.3 {x10E3/uL} (Normal) Range: 3.4-10.8 :21 TSH (53601) Comments: PATIENT NOT FASTINGPERFORMED BY: [employer] Yeruqn4245 [facility]Un[facility] [place] [id number] TSH 3.390 {uIU/mL} (Normal) Range: 0.450-4.500 :21 CALCIFIDIOL (43018) VIT D 25 Comments: PATIENT NOT FASTINGPERFORMED BY: [employer] [facility] Peydrw6263 [address] [facility] [place] [id number] Vitamin D, 25-Hydroxy 18.9 ng/mL (Abnormal) Range: 30.0-100.0 Comments: Vitamin D deficiency has been defined by the [place] of[place]icine and an Endocrine Society practice guideline as alevel of serum 25-OH vitamin D less than 20 ng/mL (1,2).The Endocrine Society went on to further define vitamin Dinsufficiency as a level between 21 and 29 ng/mL (2).1. IOM ([place] of Medicine). 2010. Dietary reference intakes for calcium and D. [place]: The National Academies Press.2. Sharon MF, Adarsh NC, Lisa SANDERSON, et al. Evaluation, treatment, and prevention of vitamin D deficiency: an Endocrine Society clinical practice guideline. JCEM. 2010; 96(7):1911-30. 02-Ndb-831512:21 LIPID PANEL (50962) Comments: PATIENT NOT FASTINGPERFORMED BY: [facility] Xuescc2227 [facility] [id number]; apt. 10--[address] LDL/HDL Ratio 3.6 {ratio_units} (Abnormal) Range: 0.0-3.2 Comments: LDL/HDL Ratio Men Women 1/2 Avg.Risk 1.0 1.5 Av g.Risk 3.6 3.2 2X Avg.Risk 6.2 5.0 3X Avg.Risk 8.0 6.1 LDL Cholesterol Calc 167 mg/dL (Abnormal) Range: 0-99 VLDL Cholesterol Josr 36 mg/dL (Normal) Range: 5-40 HDL Cholesterol 47 mg/dL (Normal) Comments: According to ATP-III Guidelines, HDL-C >59 mg/dL is considered anegative risk factor for CHD. Triglycerides 180 mg/dL (Abnormal) Range: 0-149 Cholesterol, Total 250 mg/dL (Abnormal) Range: 100-199 7-Pxq-980302:08 Lyme, Western Blot, Comments: PATIENT NOT FASTINGPERFORMED BY: CB [facility] Rupgrt7055 [facility] [id number] BY: BN [facility] Ipgcqeuhdy3529 [facility] [id number] Serum Lyme IgM WB Interp. Negative (Normal) Comments: Note: An equivocal or positive EIA result followed by a negativeWestern Blot result is considered NEGATIVE. An equivocal or positiveEIA result followed by a positive Western Blot is consider ed POSITIVEb y the CDC. .Positive: 2 of the following bands: 23,39 or 41Negative: No bands or banding patterns which do not meet positivecriteria.Cr iteria for positivity are those recommended by CDC/ASTPHLD.p23=Osp C, r74=crzjeljjx .Note:Sera from individuals with the following may cross react in theLyme Western Blot assays: other spirochetal diseases (periodontaldisease, leptospirosis, relapsing fever, yaws, and pinta);connective autoimmune (Rheumatoid Arthritis and Systemic Lupu sErythematosus and also individuals with Antinuclear Antibody);other infections ([place] Spotted Fever; Shakeel-Solis Virus,and Cytomegalovirus). . IgM P23 Ab. Present (Abnormal) IgM P39 Ab. Absent (Normal) IgM P41 Ab. Absent (Normal) Lyme IgG WB Interp. Negative (Normal) Comments: Positive: 5 of the following Borrelia-specific bands: 18,23,28,30,39,41,45,58, 66, and 93. Negative: No bands or banding patterns which do not meet positive criteria. IgG P18 Ab. Absent (Normal) IgG P23 Ab. Absent (Normal) IgG P28 Ab. Absent (Normal) IgG P30 Ab. Absent (Normal) IgG P39 Ab. Absent (Normal) IgG P41 Ab. Absent (Normal) IgG P45 Ab. Absent (Normal) IgG P58 Ab. Absent (Normal) IgG P66 Ab. Absent (Normal) IgG P93 Ab. Absent (Normal) 4-Afz-027736:08 Lyme Disease Antibody W/ Comments: PATIENT NOT FASTINGPERFORMED BY: [address] [id number] BY: [address] [id number] Reflex (69590) Lyme IgG/IgM Ab <0.91 {ISR} (Normal) Range: 0.00-0.90 Comments: Negative <0.91 Equivocal 0.91 - 1.09 Positive >1.09 Please note reference interval change 4-Nrc-973688:08 C-REACTIVE PROTEIN (89012) Comments: PATIENT NOT FASTINGPERFORMED BY: [address] [id number] BY: [address] [id number] C-Reactive Protein, Quant 5.0 mg/L (Abnormal) Range: 0.0-4.9 3-Frb-351510:08 Sed Rate Erythrocyte Comments: PATIENT NOT FASTINGPERFORMED BY: [address] [id number] BY: [place] [id number] (60890) Sedimentation Rate-Westergren 8 mm/h (Normal) Range: 0-32 9-Zge-017571:08 Metabolic Panel, Comments: PATIENT NOT FASTINGPERFORMED BY: [address] [id number] BY: [address] [id number] Comprehensive (55809) ALT (SGPT) 22 [iU]/L (Normal) Range: 0-32 AST (SGOT) 19 [iU]/L (Normal) Range: 0-40 Alkaline Phosphatase, S 93 [iU]/L (Normal) Range: 39-117 Bilirubin, Total 0.3 mg/dL (Normal) Range: 0.0-1.2 A/G Ratio 1.7 (Normal) Range: 1.1-2.5 Globulin, Total 2.7 g/dL (Normal) Range: 1.5-4.5 Albumin, Serum 4.7 g/dL (Normal) Range: 3.5-5.5 Protein, Total, Serum 7.4 g/dL (Normal) Range: 6.0-8.5 Calcium, Serum 9.9 mg/dL (Normal) Range: 8.7-10.2 Carbon Dioxide, Total 26 mmol/L (Normal) Range: 18-29 Chloride, Serum 98 mmol/L (Normal) Range: 97-108 Potassium, Serum 4.8 mmol/L (Normal) Range: 3.5-5.2 Sodium, Serum 141 mmol/L (Normal) Range: 134-144 BUN/Creatinine Ratio 19 (Normal) Range: 9-23 eGFR If Africn Am 113 mL/min/1.73 (Normal) eGFR If NonAfricn Am 98 mL/min/1.73 (Normal) Creatinine, Serum 0.75 mg/dL (Normal) Range: 0.57-1.00 BUN 14 mg/dL (Normal) Range: 6-24 Glucose, Serum 89 mg/dL (Normal) Range: 65-99 3-Rgx-469242:08 CBC with auto diff Comments: PATIENT NOT FASTINGPERFORMED BY: CB [facility] Lvaefn5915 [facility] [id number] BY: BN [facility] [address] [id number] Inf ormation: [id number] (15149) Immature Grans (Abs) 0.0 {x10E3/uL} (Normal) Range: 0.0-0.1 Immature Granulocytes 0 % (Normal) Baso (Absolute) 0.1 {x10E3/uL} (Normal) Range: 0.0-0.2 Eos (Absolute) 0.2 {x10E3/uL} (Normal) Range: 0.0-0.4 Monocytes(Absolute) 0.7 {x10E3/uL} (Normal) Range: 0.1-0.9 Lymphs (Absolute) 2.5 {x10E3/uL} (Normal) Range: 0.7-3.1 Neutrophils (Absolute) 4.5 {x10E3/uL} (Normal) Range: 1.4-7.0 Basos 1 % (Normal) Eos 3 % (Normal) Monocytes 9 % (Normal) Lymphs 32 % (Normal) Neutrophils 55 % (Normal) Platelets 502 {x10E3/uL} (Abnormal) Range: 150-379 RDW 13.7 % (Normal) Range: 12.3-15.4 MCHC 33.4 g/dL (Normal) Range: 31.5-35.7 MCH 30.7 pg (Normal) Range: 26.6-33.0 MCV 92 fL (Normal) Range: 79-97 Hematocrit 43.7 % (Normal) Range: 34.0-46.6 Hemoglobin 14.6 g/dL (Normal) Range: 11.1-15.9 RBC 4.76 {x10E6/uL} (Normal) Range: 3.77-5.28 WBC 8.0 {x10E3/uL} (Normal) Range: 3.4-10.8 4-Bmg-069420:40 Rapid Flu (03497 x 2) Influenza A Ag neg (Normal) 40-Lhh-949472:27 Urinalysis, Office (41633) UA - LEUKOCYTE ESTERASE Negative (Normal) UA - NITRITE Negative (Normal) URINE UROBILINGN JASON TIMED Normal mg/dL (Normal) UA - PROTEIN Negative mg/dL (Normal) UA - PH 6.5 (Normal) UA - BLOOD Negative (Normal) UA - SPECIFIC GRAVITY 1.010 (Normal) UA - KETONES Negative mg/dL (Normal) UA - BILIRUBIN Negative (Normal) UA - GLUCOSE Negative (Normal) 28-Aoi-403932:22 Urine Test, Office (99304) Urine Test, Office Negative (Normal) 67-Uyb-908795:08 CALCIFIDIOL (69769) VIT D 25 Comments: PATIENT NOT FASTINGPERFORMED BY: LabCoAstra Health CenterZwxwdv0514 [facility] [id number] Vitamin D, 25-Hydroxy 17.5 ng/mL (Abnormal) Range: 30.0-100.0 Comments: Vitamin D deficiency has been defined by the [place] of[place]icine and an Endocrine Society practice guideline as alevel of serum 25-OH vitamin D less than 20 ng/mL (1,2).The Endocrine Society went on to further define vitamin Dinsufficiency as a level between 21 and 29 ng/mL (2).1. IOM ([place] of [place]). 2010. Dietary reference intakes for calcium and D. [place]: The National Academies Press.2. Sharon MF, Adarsh NC, Lisa SANDERSON, et al. Evaluation, treatment, and prevention of vitamin D deficiency: an Endocrine Society clinical practice guideline. JCEM. 2010; 96(7):1911-30. 37-Pby-602702:08 Folate (29379) Comments: PATIENT NOT FASTINGPERFORMED BY: CB [facility] Kvxafm8645 Diaz RoadDublin [place] [id number] Folate (Folic Acid), Serum 12.5 ng/mL (Normal) Comments: A serum folate concentration of less than 3.1 ng/mL isconsidered to represent clinical deficiency. 23-Jun-289255:08 VITAMIN B-12 (CYANOCOBALAMIN) Comments: PATIENT NOT FASTINGPERFORMED BY: CB [facility] Wwwupa4953 Diaz RoadDublin [place] [id number] (23457) Vitamin B12 353 pg/mL (Normal) Range: 211-946 :08 TSH (15665) Comments: PATIENT NOT FASTINGPERFORMED BY: CB [facility] Hnqplh4122 Diaz RoadDublin [place] [id number] TSH 4.350 {uIU/mL} (Normal) Range: 0.450-4.500 78-Ihg-295129:08 SED RATE ERYTHROCYTE (00542) Comments: PATIENT NOT FASTINGPERFORMED BY: CB [facility] Hgtqrw8013 Diaz RoadDublin [place] [id number] Sedimentation Rate-Westergren 2 mm/h (Normal) Range: 0-32 :08 RHEUMATOID FACTOR-QUANT (20217) Comments: PATIENT NOT FASTINGPERFORMED BY: CB [facility] Ualuaf2997 Diaz RoadDublin [place] [id number] RA Latex Turbid. 6.7 {IU/mL} (Normal) Range: 0.0-13.9 95-Dbw-027064:08 METABOLIC PANEL, Comments: PATIENT NOT FASTINGPERFORMED BY: [facility]6370 [facility] [id number] Information: [id number] COMPREHENSIVE (50193) ALT (SGPT) 21 [iU]/L (Normal) Range: 0-32 AST (SGOT) 19 [iU]/L (Normal) Range: 0-40 Alkaline Phosphatase, S 92 [iU]/L (Normal) Range: 39-117 Bilirubin, Total 0.2 mg/dL (Normal) Range: 0.0-1.2 A/G Ratio 1.6 (Normal) Range: 1.1-2.5 Globulin, Total 2.7 g/dL (Normal) Range: 1.5-4.5 Albumin, Serum 4.4 g/dL (Normal) Range: 3.5-5.5 Protein, Total, Serum 7.1 g/dL (Normal) Range: 6.0-8.5 Calcium, Serum 9.8 mg/dL (Normal) Range: 8.7-10.2 Carbon Dioxide, Total 26 mmol/L (Normal) Range: 18-29 Chloride, Serum 99 mmol/L (Normal) Range: 97-108 Potassium, Serum 4.6 mmol/L (Normal) Range: 3.5-5.2 Sodium, Serum 142 mmol/L (Normal) Range: 134-144 BUN/Creatinine Ratio 16 (Normal) Range: 9-23 eGFR If Africn Am 113 mL/min/1.73 (Normal) eGFR If NonAfricn Am 98 mL/min/1.73 (Normal) Creatinine, Serum 0.75 mg/dL (Normal) Range: 0.57-1.00 BUN 12 mg/dL (Normal) Range: 6-24 Glucose, Serum 88 mg/dL (Normal) Range: 65-99 46-Qtn-184111:08 C-REACTIVE PROTEIN (03642) Comments: PATIENT NOT FASTINGPERFORMED BY: [facility]6370 [facility] [id number] C-Reactive Protein, Quant 6.1 mg/L (Abnormal) Range: 0.0-4.9 88-Ivq-664193:08 CBC (AUTO) (11077) Comments: PATIENT NOT FASTINGPERFORMED BY: [facility]6370 [facility] [id number] Platelets 487 {x10E3/uL} (Abnormal) Range: 150-379 RDW 13.8 % (Normal) Range: 12.3-15.4 MCHC 34.1 g/dL (Normal) Range: 31.5-35.7 MCH 30.8 pg (Normal) Range: 26.6-33.0 MCV 91 fL (Normal) Range: 79-97 Hematocrit 40.8 % (Normal) Range: 34.0-46.6 Hemoglobin 13.9 g/dL (Normal) Range: 11.1-15.9 RBC 4.51 {x10E6/uL} (Normal) Range: 3.77-5.28 WBC 7.4 {x10E3/uL} (Normal) Range: 3.4-10.8 92-Eiw-950664:08 RIKA (ANTINUCLEAR ANTIBODY) Comments: PATIENT NOT FASTINGPERFORMED BY: [facility]6370 [facility] [id number] (69704) RIKA Direct Negative (Normal) 04-Kvd-926422:01 METABOLIC PANEL, Comments: PATIENT WAS FASTINGPERFORMED BY: [facility]6370 [facility] [id number] Information: [id number] [facility] (88332) ALT (SGPT) 21 [iU]/L (Normal) Range: 0-32 AST (SGOT) 15 [iU]/L (Normal) Range: 0-40 Alkaline Phosphatase, S 89 [iU]/L (Normal) Range: 39-117 Bilirubin, Total 0.4 mg/dL (Normal) Range: 0.0-1.2 A/G Ratio 1.6 (Normal) Range: 1.1-2.5 Globulin, Total 2.8 g/dL (Normal) Range: 1.5-4.5 Albumin, Serum 4.4 g/dL (Normal) Range: 3.5-5.5 Protein, Total, Serum 7.2 g/dL (Normal) Range: 6.0-8.5 Calcium, Serum 9.8 mg/dL (Normal) Range: 8.7-10.2 Carbon Dioxide, Total 26 mmol/L (Normal) Range: 19-28 Chloride, Serum 102 mmol/L (Normal) Range: 97-108 Potassium, Serum 4.8 mmol/L (Normal) Range: 3.5-5.2 Sodium, Serum 141 mmol/L (Normal) Range: 134-144 BUN/Creatinine Ratio 19 (Normal) Range: 9-23 eGFR If Africn Am 104 mL/min/1.73 (Normal) eGFR If NonAfricn Am 90 mL/min/1.73 (Normal) Creatinine, Serum 0.81 mg/dL (Normal) Range: 0.57-1.00 BUN 15 mg/dL (Normal) Range: 6-24 Glucose, Serum 91 mg/dL (Normal) Range: 65-99 : LIPID PANEL (60672) Comments: PATIENT WAS FASTINGPERFORMED BY: [employer] [facility] [id number] LDL/HDL Ratio 3.1 {ratio_units} (Normal) Range: 0.0-3.2 LDL Cholesterol Calc 146 mg/dL (Abnormal) Range: 0-99 VLDL Cholesterol Josr 28 mg/dL (Normal) Range: 5-40 HDL Cholesterol 47 mg/dL (Normal) Comments: According to ATP-III Guidelines, HDL-C >59 mg/dL is considered anegative risk factor for CHD. Triglycerides 142 mg/dL (Normal) Range: 0-149 Cholesterol, Total 221 mg/dL (Abnormal) Range: 100-199 :01 TSH (34577) Comments: PATIENT WAS FASTINGPERFORMED BY: [employer] Exfhcz7672 [facility] [id number] TSH 2.590 {uIU/mL} (Normal) Range: 0.450-4.500 54-Bsl-730427:01 TSH (THYROID STIMULATING Comments: PATIENT WAS FASTINGPERFORMED BY: [employer] Card SolutionsAstra Health CenterWaoiqt3300 [facility] [id number] HORMONE) (32522) TSH 4.510 {uIU/mL} (Abnormal) Range: 0.450-4.500 67-Czh-846895:01 LIPID PANEL (84752) Comments: PATIENT WAS FASTINGPERFORMED BY: [facility] OnlineM[facility] [place] [address] [id number] Information: ADD [id number] AND DRAW FEE 99 6660 LDL/HDL Ratio 3.1 {ratio_units} (Normal) Range: 0.0-3.2 LDL Cholesterol Calc 138 mg/dL (Abnormal) Range: 0-99 HDL Cholesterol 44 mg/dL (Normal) Comments: According to ATP-III Guidelines, HDL-C >59 mg/dL is considered anegative risk factor for CHD. VLDL Cholesterol Josr 28 mg/dL (Normal) Range: 5-40 Triglycerides 139 mg/dL (Normal) Range: 0-149 Cholesterol, Total 210 mg/dL (Abnormal) Range: 100-199 11-Mto-206825:01 CALCIFEDIOL (07321) Comments: PATIENT WAS FASTINGPERFORMED BY: [facility] Nmzczv1535 [facility] [id number] Vitamin D, 25-Hydroxy 31.8 ng/mL (Normal) Range: 30.0-100.0 Comments: Vitamin D deficiency has been defined by the [place] ofL[facility]cine and an Endocrine Society practice guideline as alevel of serum 25-OH vitamin D less than 20 ng/mL (1,2).The Endocrine Society went on to further define vitamin Dinsufficiency as a level between 21 and 29 ng/mL (2).1. IOM ([place] of Medicine). 2010. Dietary reference intakes for calcium and D. [place]: The National Academies Press.2. Sharon MF, Adarsh NC, Lisa SANDERSON, et al. Evaluation, treatment, and prevention of vitamin D deficiency: an Endocrine Society clinical practice guideline. JCEM. 2010; 96(7):1911-30. DDIMQ 0.32 {FEUug/mL} Range: 0.22-0.48 :37 (Normal) Comments: NORMAL D-Dimer level indicates no DVT or PE. :16 ACAAGM tANTICA < 9 {APL_U/mL} (Normal) Range: 0-11 Comments: Negative: <12 Indeterminate: 12 - 20 Low-Med Positive: >20 - 80 High Positive: >80 tANTICM < 9 {MPL_U/mL} (Normal) Range: 0-12 Comments: Negative: <13 Indeterminate: 13 - 20 Low-Med Positive: >20 - 80 High Positive: >80 tANTICG < 9 {GPL_U/mL} (Normal) Range: 0-14 Comments: Negative: <15 Indeterminate: 15 - 20 Low-Med Positive: >20 - 80 High Positive: >80 9-Nuo-093698:16 AT3F tAT3AI 104 % (Normal) Range: 75-130 AT3 97 % (Normal) Range: 75-135 9-Xgs-957027:16 BETA2G gBNBO3C$ <9 (Normal) Range: 0-20 Comments: INFCE Result Units: GPI IgA units qMVVS4X$ <9 (Normal) Range: 0-20 Comments: INFCE Result Units: GPI IgG units vCNEO3B$ <9 (Normal) Range: 0-20 Comments: INFCE Result Units: GPI IgM units 0-Uyq-617982:16 FACIID tFACIID Comment (Normal) Comments: NEGATIVENo mutation identified. .Comment:A point mutation ([id number]) in the factor II (prothrombin)gene is the second most common cause of inheri tedthrombophilia. The incidence of this mutation in the [place] population is about 2% and in the AfricanAmerican population it is approximately 0.5%. This mutationis rare in the and population. Beingheterozygous for a prothrombin mutation increases the riskfor developing venous thrombosis about 2 to 3 times abovethe general population risk. Being homozygous for theprothrom bin gene mutation increases the relative risk forvenous thrombosis further, although it is not yet known howmuch further the risk is increased. In women heterozygousfor the prothrombin gene mutation, th e use of estrogencontaining oral contraceptives increases the relative riskof venous thrombosis about 16 times and the risk ofdeveloping cerebral thrombosis is also significantlyincreased. In the prothrombin gene mutationincreases risk for venous thrombosis and may increaserisk for stillbirth, placental abruption, pre-eclampsia andfetal growth restriction. If the patient possesses two ormore congenital or acquired thrombophilic risk factors, therisk for thrombosis may rise to more than the sum of therisk ratios for the individual mutations. This assaydetects only the prothrombin N17123A mu tation and doesnot measure genetic abnormalities elsewhere in thegenome. Other thrombotic risk factors may be pursuedthrough systematic clinical laboratory analysis. Thesefactors include the R506Q (Leid en) mutation in the Factor Vgene, plasma homocysteine levels, as well as testing fordeficiencies of antithrombin III, protein C and protein S. 8-Xdo-036437:16 FACVL tFACVL Comment (Normal) Comments: Result: Negative (no mutation found) .Factor V Leiden is a specific mutation (R506Q) in the factorV gene that is associated with an increased r isk of venousthrombosis. Factor V Leiden is more resistant toinactivation by activated protein C. As a result, factor Vpersists in the circulation leading to a mild hyper-coagulable state. The Leiden mutation accounts for 90% -95% of APC resistance. Factor V Leiden has been reported inpatients with deep vein thrombosis, pulmonary embolus,central retinal vein occlusion, cerebral sinus thrombosisand hepatic vein thrombosis. Other risk factors to beconsidered in the workup for venous thrombosis include [id number] mutation in the factor II (prothrombin) gene,protein S and C deficiency, and antithromb in deficiencies.Anticardiolipin antibody and lupus anticoagulant analysismay be appropriate for certain patients, as well ashomocysteine levels. .Contact your local [facility] for information on how to orderadditional testing if desired. .Genetic counselors are available for health care* providers to discuss results at [phone] .Methodology:DNA analysis of the Factor V gene was performed by allele-specific PCR followed by gel electrophoresis. The diagnosticsensitivity and specificity is >99% for both. Molecular-based testing is highly accurate, but as in any laboratorytest, diagnostic errors may occur. All test results must becombined with clinical information for the most accurateinterpretation. .References:Lima Corrales (1996). Clin Lab Med 16: 169-186. .Bentley Nolen, Ph.D.Andressa Andrea, Ph.D.Lolita Marinelli, Ph.D.Beatriz Dover, Ph.D.Beth Smith, Ph.D.Ashley Deluna M.D .Sheron Leroy, Ph.D. . 7-Zan-946860:16 HOMO 8.0 umol/L (Normal) Range: 3.2-10.7 0-Myx-891291:16 PROTC PRC 125 % (Normal) Range: 70-140 PRCF 168 % (Abnormal) Range: 74-151 :16 PROTS tPROSFU 112 % (Normal) Range: 60-145 tPROSF 118 % (Normal) Range: 56-124 tPROST 105 % (Normal) Range: 58-150 : PT INR 1.9 (Normal) PTP 21.4 s (Abnormal) Range: 11.9-14.4 :07 PT INR 2.1 (Normal) PTP 22.5 s (Abnormal) Range: 11.9-14.4 :01 PT INR 1.8 (Normal) PTP 20.6 s (Abnormal) Range: 11.9-14.4 :18 PT INR 2.1 (Normal) PTP 22.5 s (Abnormal) Range: 11.9-14.4 :33 RIKA DIR SEMI-QL RIKA DIRECT 17 AU/mL (Normal) :33 B12/FOLATES FOLATES 24.00 ng/mL (Abnormal) Range: 3.1-17.5 VITAMIN B12 823 pg/mL (Normal) Range: 254-1320 Comments: There is a low frequency possibility that high titers ofintrinsic blocking antibodies may not be completely inactivated during the reaction pretreatment stepof this testing method. If test results are i n conflictwith the clinical diagnosis, patient should be testedfor the presence of intrinsic factor blocking antibodies. :33 C-REACTIVE PROT 6.36 mg/L (Abnormal) Range: 0.0-3.0 Comments: C-Reactive Protein (CRP) provides useful information for thediagnosis, therapy and monitoring of inflammatory processesand associated diseases. For the evaluation of Relative Riskfor Cardiovascular Dise ase, a High Sensitivity CRP (HSCRP)should be ordered. :33 CBCD ABSOLUTE NEUT 3.4 3/uL (Normal) Range: 2.0-7.7 BASO% 0.8 % (Normal) Range: 0-1 EO% 1.8 % (Normal) Range: 0-5 MONO% 6.1 % (Normal) Range: 0-10 LY% 34.7 % (Normal) Range: 19-41 NEUT% 56.6 % (Normal) Range: 47-70 MPV 10.6 fL (Normal) Range: 6.5-12.0 PLT 433 K/mm3 (Normal) Range: 150-450 RDW 13.4 % (Normal) Range: 11.6-14.6 MCHC 34.1 g/dL (Normal) Range: 32-36 MCH 32.4 pg (Abnormal) Range: 27.0-32.0 MCV 94.8 fL (Normal) Range: 81-99 HCT 40.7 % (Normal) Range: 37-47 HGB 13.9 g/dL (Normal) Range: 12.0-16.0 RBC 4.29 {M/mm3} (Normal) Range: 4.2-5.4 WBC 6.0 K/mm3 (Normal) Range: 4.4-11.0 [id number] COMP METABOLIC GAP 10 (Normal) Range: 5-15 CO2 27.0 mmol/L (Normal) Range: 21.0-32.0 CL 104 mmol/L (Normal) Range: 98-107 K 4.3 mmol/L (Normal) Range: 3.5-5.1 NA 141 mmol/L (Normal) Range: 136-145 T BILI 0.40 mg/dL (Normal) Range: 0.00-1.00 ALT 26 U/L (Normal) Range: 12-78 ALK P 71 U/L (Normal) Range: 50-136 AST 11 U/L (Abnormal) Range: 15-37 CA 8.5 mg/dL (Normal) Range: 8.5-10.1 A/G 0.9 {RATIO} (Normal) Range: 0.9-2.4 GLOB 3.9 g/dL (Normal) Range: 2.7-4.2 ALB 3.7 g/dL (Normal) Range: 3.4-5.0 T PROT 7.6 g/dL (Normal) Range: 6.4-8.2 BUN/CRE 17.1 {RATIO} (Normal) Range: 10-20 EST GFR - AA 120 mL/min (Normal) EST GFR 99 mL/min (Normal) CREAT,SERUM 0.7 mg/dL (Normal) Range: 0.6-1.0 BUN 12 mg/dL (Normal) Range: 7-18 GLU 92 mg/dL (Normal) Range: 70-110 :33 ESR SED RATE 15 mm/h (Normal) Range: 0-20 :33 LIPID VLDL 38 mg/dL (Normal) Range: 5-40 LDL 199 mg/dL (Abnormal) Range: 0-130 HDL 47 mg/dL (Normal) Comments: Reference Range HDL <40 mg/dL Low HDL Cholesterol HDL >or= 60 mg/dL High HDL Cholesterol TRIG 191 mg/dL (Normal) Comments: Serum Triglycerides Reference Interval Normal <150 mg/dL Borderline high 150 - 199 mg/dL High 200 - 499 mg/dL Very High > or = 500 mg/dL CHOL 284 mg/dL (Abnormal) Comments: <200 mg/dL Desirable 200-240 mg/dL Borderline >240 mg/dL High Risk :33 PRO TIME INR 2.2 (Normal) PROTIME 23.8 s (Abnormal) Range: 11.9-14.4 :33 RHEUMATOID FAC < 10.0 {IU/mL} (Normal) :33 TSH 2.48 {uIU/mL} (Normal) Range: 0.358-3.74 :33 VIT D,25 21755 28.7 ng/mL (Abnormal) Range: 30.0-100.0 Comments: Vitamin D deficiency has been defined by the [place] [employer] and an Endocrine Society practice guideline as alevel of serum 25-OH vitamin D less than 20 ng/mL (1,2).The Endocrine Society went on to further define vitamin Dinsufficiency as a level between 21 and 29 ng/mL (2).1. IOM ([place] [employer]). 2011. Dietary reference intakes for calcium and D. [place]: The National Academies Press.2. Sharon MF, Adarsh NC, Lisa SANDERSON, et al. Evaluation, treatment, and prevention of vitamin D deficiency: an Endocrine Society clinical practice guideline. JCEM. 2010; 96(7): 1911-30.Performed at: [address] [id number] Director: Nuzhat Worrell MD, Phone: [phone] [id number] CHEST WITH CONTRAST Radiology Report See Note (Normal) Comments: PROCEDURE: CT CHEST WITH CONTRAST REASON FOR EXAM: Female, 40 years old. Chest pain and chest pressure. TECHNIQUE: High resolution transaxial imaging was performed followingintravenous administrat ion of 100 ml of Isovue 370 contrast material.Multiplanar coronal and sagittal images were reformatted. COMPARISON: Comparison is made with prior examination dated January. FINDINGS: The lungs are normal. There is no demonstrated pleural abnormality. Normal heart and pericardium. Normal mediastinum. Normal hilar regions. There are no demonstratedpulmonary emboli. Normal enhanced thoracic aorta and visualized greatvessels. There are multi-level degenerative changes of the thoracic spine. Smallleft toes are seen in the left axillary region. There is limited visualization of the liver, s pleen, pancreas, adrenalglands, and abdominal aorta without a demonstrated abnormality. IMPRESSION:There is no evidence of pulmonary embolism. To consult with a radiologist regarding this report, please call our [id number] line @ Dictated on 04/04/11 1546 by Britney RODRIGUES,Melranscribed on 04/04/11 1638 by ITS IMPORTSign by Emre Tan MD on 04/04/11 1639 Sign by: Emre Tan MD [id number] PRO TIME INR 1.8 (Normal) PROTIME 20.2 s (Abnormal) Range: 11.9-14.4 [id number]-[id number]:18 Prothrombin Time (PT) Comments: PERFORMED BY: [facility] [facility] [id number] Prothrombin Time 25.5 {sec} (Abnormal) Range: 9.1-12.0 Comments: Please note reference interval change INR 2.4 (Abnormal) Range: 0.8-1.2 Comments: Reference interval is for non-anticoagulated patients. . Suggested INR therapeutic range for Vitamin K anta gonist therapy: Standard Dose (moderate intensity therapeutic range): 2.0 - 3.0 Higher intensity therapeutic range 2.5 - 3.5 :51 CULTURE, NOSE NASAL CULTURE See Note (Normal) Comments: Normal ed. No Haemophilus, Streptococcus pneumoniae,beta-hemolytic Streptococcus or Staphylococcus aureusisolated. AMOUNT GROWTH 1+ ORGANISM 1: COAG NEGATIVE STAPH GRAM STAIN See Note (Normal) Comments: GRAM STAIN NO WHITE BLOOD CELLS NO ORGANISMS SEEN :2 BC No growth in 5 days. 6 (Normal) :28 PRO TIME INR 2.9 (Normal) PROTIME 28.9 s (Abnormal) Range: 11.9-14.4 :14 CHEST, PA AND LATERAL Radiology Report See Note (Normal) Comments: PROCEDURE: X-RAY CHEST REASON FOR EXAM: Female, 40 years old. Bacterial pneumonia, pulmonaryembolism TECHNIQUE: PA and lateral views of the chest. COMPARISON: Prior comparison studies are not a vailable for review atthistime. FINDINGS: The lungs are expanded. There is no demonstrated parenchymalabnormality.There is no demonstrated pleural abnormality. Normal heart and pericardium. Normal medi astinum and ian. Normal visualized pulmonary arteries.Thereis atherosclerotic calcification of the aortic arch with tortuosity. Normal visualized thoracic spine. Normal visualized ribs, clavicles, an dshoulders. There are surgical clips in the left upper abdomen. IMPRESSION:No focal consolidation or pleural effusion. Dictated on 02/05/11 0937 by NAVARRO DOOLEY MD BTranscribed on 02/05/11 1035 by IT S IMPORTSign by NAVARRO DOOLEY MD on 02/05/11 1036 Sign by: NAVARRO DOOLEY MD :07 PRO TIME INR 2.9 (Normal) PROTIME 28.8 s (Abnormal) Range: 11.9-14.4 :51 CULTURE, SPUTUM RESP CULTURE See Note (Normal) Comments: No Haemophilus, Streptococcus pneumoniae, orbeta-hemolytic Streptococcus isolated. AMOUNT GROWTH 2+ ORGANISM 1: STAPHYLOCOCCUS AUREUS STAPHYLOCOCCUS AUREUS: R EACTION BENZYLPENICILLIN - >=0.5 R CIPROFLOXACIN GP (IV/NF) $$ <=0.5 S CLINDAMYCIN $$ <=0.25 S INDUCIBLE CC RESISTANCE (NF )$ Neg - ERYTHROMYCIN $$ <=0.25 S GENTAMICIN GP $ <=0.5 S LEVOFLOXACIN $ <=0.12 S LINEZOLID $$$ 2 S MOXIFLOXICIN (NF) $$ <=0.25 S OXACILLIN $$ <=0.25 S TIGECYCLINE (NF) $$$ <=0.12 S QUINUPRISTIN/DALFOPRI (NF) $$$ <=0.25 S RIFAMPIN $ <=0.5 S TETRACYCLINE $ <=1 S TRIMETHOPRIM/SULFAMETHOXAZ $ <=10 S VANCOMYCIN $ 1 S GRAM STAIN See Note (Normal) Comments: GRAM STAIN 1+ WHITE BLOOD CELLS RARE EPITHELIAL CELLS 2+ GRAM POSITIVE COCCI IN CHAINS RARE GRAM POSITIVE RODS 1+ GRAM NEGATIVE COCCOBACILLUS :44 PRO TIME INR 3.3 (Normal) PROTIME 32.1 s (Abnormal) Range: 11.9-14.4 :24 PRO TIME INR 2.7 (Normal) PROTIME 27.6 s (Abnormal) Range: 11.9-14.4 :30 PRO TIME INR 1.7 (Normal) PROTIME 19.0 s (Abnormal) Range: 11.9-14.4 :03 PRO TIME INR 1.3 (Normal) PROTIME 15.6 s (Abnormal) Range: 11.9-14.4 :23 PRO TIME INR 1.0 (Normal) PROTIME 12.9 s (Normal) Range: 11.9-14.4 :44 RIKA DIR SEMI-QL RIKA DIRECT 6 AU/mL (Normal) :44 B12/FOLATES Comments: Specimen slightly hemolyzed. Results may be affected. FOLATES 19.90 ng/mL (Abnormal) Range: 3.1-17.5 VITAMIN B12 397 pg/mL (Normal) Range: 254-1320 Comments: There is a low frequency possibility that high titers ofintrinsic blocking antibodies may not be completely inactivated during the reaction pretreatment stepof this testing method. If test results are i n conflictwith the clinical diagnosis, patient should be testedfor the presence of intrinsic factor blocking antibodies. :44 C-REACTIVE PROT 4.49 mg/L (Abnormal) Comments: Specimen slightly hemolyzed. Results may be affected. Range: 0.0-3.0 Comments: C-Reactive Protein (CRP) provides useful information for thediagnosis, therapy and monitoring of inflammatory processesand associated diseases. For the evaluation of Relative Riskfor Cardiovascular Dise ase, a High Sensitivity CRP (HSCRP)should be ordered. :44 CBC MPV 10.5 fL (Normal) Range: 6.5-12.0 PLT 349 K/mm3 (Normal) Range: 150-450 RDW 13.1 % (Normal) Range: 11.6-14.6 MCHC 33.9 g/dL (Normal) Range: 32-36 MCH 32.2 pg (Abnormal) Range: 27.0-32.0 MCV 94.9 fL (Normal) Range: 81-99 HCT 41.5 % (Normal) Range: 37-47 HGB 14.1 g/dL (Normal) Range: 12.0-16.0 RBC 4.37 {M/mm3} (Normal) Range: 4.2-5.4 WBC 6.2 K/mm3 (Normal) Range: 4.4-11.0 :44 COMP METABOLIC Comments: Specimen slightly hemolyzed. Results may be affected. GAP 9 (Normal) Range: 5-15 CO2 26.0 mmol/L (Normal) Range: 21.0-32.0 CL 104 mmol/L (Normal) Range: 98-107 K 4.8 mmol/L (Normal) Range: 3.5-5.1 Comments: Specimen slightly hemolyzed. Results may be affected. NA 139 mmol/L (Normal) Range: 136-145 T BILI 0.60 mg/dL (Normal) Range: 0.00-1.00 ALT 22 U/L (Normal) Range: 12-78 ALK P 71 U/L (Normal) Range: 50-136 AST 16 U/L (Normal) Range: 15-37 Comments: Specimen slightly hemolyzed. Results may be affected. CA 8.4 mg/dL (Abnormal) Range: 8.5-10.1 A/G 1.0 {RATIO} (Normal) Range: 0.9-2.4 GLOB 3.6 g/dL (Normal) Range: 2.7-4.2 ALB 3.7 g/dL (Normal) Range: 3.4-5.0 T PROT 7.3 g/dL (Normal) Range: 6.4-8.2 BUN/CRE 17.1 {RATIO} (Normal) Range: 10-20 EST GFR - AA 120 mL/min (Normal) EST GFR 99 mL/min (Normal) CREAT,SERUM 0.7 mg/dL (Normal) Range: 0.6-1.0 BUN 12 mg/dL (Normal) Range: 7-18 GLU 89 mg/dL (Normal) Range: 70-110 :44 ESR SED RATE 8 mm/h (Normal) Range: 0-20 :44 LIPID Comments: Specimen slightly hemolyzed. Results may be affected. LDL 160 mg/dL (Abnormal) Range: 0-130 VLDL 29 mg/dL (Normal) Range: 5-40 HDL 43 mg/dL (Normal) Comments: Reference Range HDL <40 mg/dL Low HDL Cholesterol HDL >or= 60 mg/dL High HDL Cholesterol TRIG 147 mg/dL (Normal) Comments: Serum Triglycerides Reference Interval Normal <150 mg/dL Borderline high 150 - 199 mg/dL High 200 - 499 mg/dL Very High > or = 500 mg/dL CHOL 232 mg/dL (Abnormal) Comments: <200 mg/dL Desirable 200-240 mg/dL Borderline >240 mg/dL High Risk :44 RHEUMATOID FAC < 10.0 {IU/mL} (Normal) Comments: Specimen slightly hemolyzed. Results may be affected. :44 TSH 2.24 {uIU/mL} (Normal) Comments: Specimen slightly hemolyzed. Results may be affected. Range: 0.358-3.74 :44 VIT D,25 14360 16.7 ng/mL (Abnormal) Range: 32.0-100.0 Comments: Effective January 22, 2011 Vitamin D, 25-Hydroxy reference intervals will be changing to 30-100. .Recent studies consider the lower li jay of 32.0 ng/mL to be athreshold for optimal health.Luis HERNADEZ. J Nutr. 2004;135(2):317-22.Performed at: [address] [id number] Director: Nuzhat Worrell MD, Phone: [phone] :28 TSH 1.72 {uIU/mL} (Normal) Range: 0.358-3.74 99-Hhg-487113:21 BRAIN/HEAD WITHOUT CONTRAST Radiology Report See Note (Normal) Comments: CLINICAL:Female, 39 years old. Headache and dizziness CT BRAIN WITHOUT CONTRAST TECHNIQUE:Transaxial CT imaging of the brain was performed without administrationofintravenous contrast material. COMPARI SON:12/21/2003 FINDINGS:Normal size of the ventricles and extra-axial spaces for the patient'doc.Normal white matter tracts of the supratentorial brain. Normal basal ganglia. Normal bilateral thalami. There is no demonstrated vascular abnormality. There is no demonstrated extra- axial hemorrhage. There is nodemonstratedintraparenchymal hemorrhage. Normal brainstem. Normal cerebellum. Normal basal c isterns. Normal soft tissue structures. Normal calvarium. Normal sella turcica. Normal skull base. Normal visualized orbital structures. Normal visualized paranasalsinuses. IMPRESSION:Normal unenhanc ed CT scan of the brain. Dictated on 05/22/10 1625 by PITA CONTRERAS MDTranscribed on 05/22/10 1649 by ITS IMPORTSign by PITA CONTRERAS MD on 05/22/10 1650 Sign by: PITA CONTRERAS MD [id number] SINUS/FACIAL BONE Radiology Report See Note (Normal) Comments: CLINICAL:Female, [address] MAXILLOFACIAL SINUSES TECHNIQUE:The patient was scanned in a multi detector CT scanner. High resolutionaxial imaging was performed without the administrati on of intrav enouscontrast material. Sagittal and coronal images were reconstructed. COMPARISON:None. FINDINGS: FRONTAL SINUSES: Normal aeration, without mucosal inflammatory disease. ETHMOIDAL SINUSES: Normal ae ration, without mucosal inflammatorydisease. MAXILLARY SINUSES: Normal aeration, without mucosal inflammatory diseaseexcept for a stable, minimal polypoid mucosal thickening inferiorly. SPHENOIDAL SINU SES: Normal aeration, without mucosal inflammatorydisease. There is patency of the bilateral maxillary infundibuli with normaluncinate processes, ethmoid bullae, and hiatus semilunaris. Normal bilatera l middle turbinates. Normal bilateral inferiorturbinates.Normal midline nasal septum. There is patency of the bilateral nasalairways. The visualized osseous structures are normal. The visualized bila teralorbital contents are normal. IMPRESSION:Unremarkable CT examination of the maxillofacial sinuses. Dictated on 05/22/105 by PITA CONTRERAS MDTranscribed on 05/22/101650 by ITS IMPORTSign PITA Frias MD on 05/22/101651 Sign by: PITA CONTRERAS MD CULTURE, THROAT See Note (Normal) Comments: Normal throat ed isolated. No beta-hemolyticstreptococcus isolated. 4:55 :42 LIPID VLDL 52 mg/dL (Abnormal) Range: 5-40 LDL 129 mg/dL (Normal) Range: 0-130 HDL 45 mg/dL (Normal) Comments: Reference Range HDL <40 mg/dL Low HDL Cholesterol HDL >or= 60 mg/dL High HDL Cholesterol TRIG 259 mg/dL (Abnormal) Comments: Serum Triglycerides Reference Interval Normal <150 mg/dL Borderline high 150 - 199 mg/dL High 200 - 499 mg/dL Very High > or = 500 mg/dL CHOL 226 mg/dL (Abnormal) Comments: <200 mg/dL Desirable 200-240 mg/dL Borderline >240 mg/dL High Risk :42 TSH 1.78 {uIU/mL} (Normal) Range: 0.358-3.74 :30 GLUP 101 mg/dL (Normal) Comments: GLU,2HPPG 75gm GLUC PPG GLUP from 0714:[id number]. :23 COMPLETE UA BACTERIA 0 SEEN {/hpf} (Normal) MUCUS, URINE 0 SEEN {/hpf} (Normal) SQUAM EPI SeeNote {/hpf} (Normal) Range: 5-10 Comments: Result: 0-5 SEEN LEUK ESTERASE SeeNote (Normal) Comments: Result: NEGATIVE NITRITE UR SeeNote (Normal) Comments: Result: NEGATIVE OCCULT BLOOD-UR SeeNote (Normal) Comments: Result: NEGATIVE RBC-UA 0 SEEN {/hpf} (Normal) Range: 0-5 UROBILI 0.2 EU/dl (Normal) Range: 0.2 - 1.0 WBC SeeNote {/hpf} (Normal) Range: 0-5 Comments: Result: 0-5 SEEN KETONE UR SeeNote mg/dL (Normal) Comments: Result: NEGATIVE pH UR 6.0 (Normal) Range: 5.0-8.0 PROT DIPSTX SeeNote (Normal) Comments: Result: NEGATIVE SP.GR. DIPSTX 1.015 (Normal) Range: 1.002-1.030 BILIRUBIN URINE SeeNote (Normal) Comments: Result: NEGATIVE CLARITY CLEAR (Normal) GLUCOSE, UR SeeNote (Normal) Comments: Result: NEGATIVE COLOR YELLOW (Normal) :23 LIPID HDL 48 mg/dL (Normal) Comments: Reference RangeHDL <40 mg/dL Low HDL CholesterolHDL >or= 60 mg/dL High HDL Cholesterol LDL 134 mg/dL (Abnormal) Range: 0-130 TRIG 128 mg/dL (Normal) Comments: Serum Triglycerides Reference IntervalNormal <150 mg/dLBorderline high 150 - 199 mg/dLHigh 200 - 499 mg/ dLVery High > or = 500 mg/dL VLDL 26 mg/dL (Normal) Range: 5-40 CHOL 208 mg/dL (Abnormal) Comments: <200 mg/dL [id number] mg/dL Borderline>240 mg/dL High Risk :23 TSH 2.35 {uIU/mL} (Normal) Range: 0.358-3.74 73-Fii-460386:19 CULTURE, URINE URINE CULTURE See Note {CFU/mL} (Normal) Comments: COLONY COUNT 25,000-50,000 ORGANISM 1: MIXED GRAM POSITIVE ORGANISMS 56-Wsh-571234:07 Rapid Flu (14838 x 2) INFLUENZA IMMUNOASSY DIRECT OPTICAL OBSERV neg (Normal) 04-Bqp-203311:07 Rapid Strep Test, Office (51405) Rapid Strep Test, Office Negative (Normal) :46 CULTURE, URINE URINE CULTURE See Note (Normal) Comments: Predominant being a gram positive skip, possibleLactobacillus species. COLONY COUNT 80,000- 100,000 ORGANISM 1: MIXED GRAM POSITIVE ORGANISMS 62-Eir-749041:13 Urinalysis, Office (23306) UA - BILIRUBIN Negative (Normal) UA - BLOOD Non Hemolyzed Trace (Normal) UA - GLUCOSE Negative (Normal) UA - KETONES Small mg/dL (Normal) UA - LEUKOCYTE ESTERASE Negative (Normal) UA - NITRITE Negative (Normal) UA - PH 6.0 (Normal) UA - PROTEIN Negative mg/dL (Normal) UA - SPECIFIC GRAVITY 1.025 (Normal) URINE UROBILINGN JASON TIMED 2 mg/dL (Normal) :17 LIPID CHOL 243 mg/dL (Abnormal) Comments: <200 mg/dL Desirable 200-240 mg/dL Borderline >240 mg/dL High Risk HDL 47 mg/dL (Normal) Comments: Reference Range HDL <40 mg/dL Low HDL Cholesterol HDL >or= 60 mg/dL High HDL Cholesterol LDL 164 mg/dL (Abnormal) Range: 0-130 TRIG 160 mg/dL (Normal) Comments: Serum Triglycerides Reference Interval Normal <150 mg/dL Borderline high 150 - 199 mg/dL High 200 - 499 mg/dL Very High > or = 500 mg/dL VLDL 32 mg/dL (Normal) Range: 5-40 :17 TSH 1.78 {uIU/mL} (Normal) Range: 0.358-3.74 10-Mpf-[id number]:59 ABDOMEN WITH CONTRAST Radiology Report See Note (Normal) Comments: Exam Number: [id number] CT OF THE ABDOMEN AND PELVIS WITH CONTRAST INDICATIONAbdominal pain. COMPARISONAugust 2003. TECHNIQUEContiguous transaxial images were obtained through the abdom enand pelvis following the uneventful administration of 100 ccIsovue 300 intravenously. Oral contrast was also given. FINDINGSLimited sections through the lung bases show no focal infiltrates orpleural fluid. T he heart is normal in size. No pericardial effusionis seen. The liver is not enlarged and no focal hepatic lesions are seen. The intrahepatic and extrahepatic bile ducts are not dilated. The gallbl adder and pancreas are unremarkable. The spleen issurgically absent. The adrenal glands and kidneys are unremarkable.There is no hydronephrosis. Multiple surgical clips are redemonstrated throughout the abdomen.There are findings compatible with a bowel anastomosis in the left midabdomen. Small and large bowel segments are not dilated. There is asmall umbilical as well as supraumbilical hernia, both containing asegment of nondilated small bowel. No intra-abdominal free air orfree fluid is seen. There are no pathologically enlargedretroperitoneal or mesenteric lymph nodes visualized. There a re noinflammatory changes in the intestinal mesentery. Scans through the pelvis show no evidence of mass or adenopathy.The uterus appears atrophic. The adnexal regions are unremarkable.The urinary bl adder is unremarkable. The visualized osseous structures are unremarkable. IMPRESSION1. There are small umbilical and supraumbilical hernias, bothcontaining a nonobstructed segment of small bowel. 2. No acute abnormalities were otherwise seen within the abdomenand pelvis. 3. No pathologically enlarged lymph nodes are visualized. 4. 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 Reported By: PITA ALBERTS M.D. [id number]:59 PELVIS WITH CONTRAST Radiology Report See Note (Normal) Comments: Exam Number: [id number] CT OF THE ABDOMEN AND PELVIS WITH CONTRAST INDICATIONAbdominal pain. COMPARISONAugust 2003. TECHNIQUEContiguous transaxial images were obtained through the abdom enand pelvis following the uneventful administration of 100 ccIsovue 300 intravenously. Oral contrast was also given. FINDINGSLimited sections through the lung bases show no focal infiltrates orpleural fluid. T he heart is normal in size. No pericardial effusionis seen. The liver is not enlarged and no focal hepatic lesions are seen. The intrahepatic and extrahepatic bile ducts are not dilated. The gallbl adder and pancreas are unremarkable. The spleen issurgically absent. The adrenal glands and kidneys are unremarkable.There is no hydronephrosis. Multiple surgical clips are redemonstrated throughout the abdomen.There are findings compatible with a bowel anastomosis in the left midabdomen. Small and large bowel segments are not dilated. There is asmall umbilical as well as supraumbilical hernia, both containing asegment of nondilated small bowel. No intra-abdominal free air orfree fluid is seen. There are no pathologically enlargedretroperitoneal or mesenteric lymph nodes visualized. There a re noinflammatory changes in the intestinal mesentery. Scans through the pelvis show no evidence of mass or adenopathy.The uterus appears atrophic. The adnexal regions are unremarkable.The urinary bl adder is unremarkable. The visualized osseous structures are unremarkable. IMPRESSION1. There are small umbilical and supraumbilical hernias, bothcontaining a nonobstructed segment of small bowel. 2. No acute abnormalities were otherwise seen within the abdomenand pelvis. 3. No pathologically enlarged lymph nodes are visualized. 4. 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 Reported By: PITA ALBERTS M.D. :36 Upper Respiratory Culture Comments: Clinical Information: SRC:JACE YANES [id number] PERFORMED BY: [email or web address] [facility] [id number] Result 1 RRF (Normal) Comments: Routine respiratory ed Upper Respiratory Culture Final report (Normal) 22-Jan-2007 Antistreptolysin O Ab 37.7 {IU/mL} Comments: PATIENT NOT FASTINGPERFORMED BY: [email or web address] [facility] [id number] 9:26 (Normal) Range: 0.0-200.0 29-Nxm-25681:26 Comp. Metabolic Panel (14) Comments: PATIENT NOT FASTINGPERFORMED BY: [email or web address] [facility] [id number] A/G Ratio 1.2 (Normal) Range: 1.1-2.5 Albumin, Serum 4.4 g/dL (Normal) Range: 3.5-5.5 Alkaline Phosphatase, S 96 [iU]/L (Normal) Range: 25-150 ALT (SGPT) 17 [iU]/L (Normal) Range: 0-40 AST (SGOT) 17 [iU]/L (Normal) Range: 0-40 Bilirubin, Total 0.3 mg/dL (Normal) Range: 0.1-1.2 BUN 12 mg/dL (Normal) Range: 5-26 BUN/Creatinine Ratio 17 (Normal) Range: 8-27 Calcium, Serum 9.5 mg/dL (Normal) Range: 8.5-10.6 Carbon Dioxide, Total 24 mmol/L (Normal) Range: 20-32 Chloride, Serum 102 mmol/L (Normal) Range: 96-109 Creatinine, Serum 0.7 mg/dL (Normal) Range: 0.5-1.5 Globulin, Total 3.6 g/dL (Normal) Range: 1.5-4.5 Glucose, Serum 99 mg/dL (Normal) Range: 65-99 Potassium, Serum 4.6 mmol/L (Normal) Range: 3.5-5.5 Protein, Total, Serum 8.0 g/dL (Normal) Range: 6.0-8.5 Sodium, Serum 139 mmol/L (Normal) Range: 135-148 :26 RIKA (ANTINUCLEAR ANTIBODY) Comments: PATIENT NOT FASTINGPERFORMED BY: TFG Card SolutionsAstra Health CenterXjgngu5271 [facility] [id number] ([id number]) Antinuclear Antibodies Direct 55 AU/mL (Normal) Range: 0-99 Comments: Negative <100 Equivocal 100 - 120 Positive >120 :26 Sed Rate Erythrocyte (12524) Comments: PATIENT NOT FASTINGPERFORMED BY: [employer] [facility]6[address] [facility] [id number] Sedimentation Rate-Westergren 6 mm/h (Normal) Range: 0-20 :26 CBC, Platelets & Auto Diff Comments: PATIENT NOT FASTINGPERFORMED BY: TFG Card SolutionsAstra Health CenterDxuiwl4981 [facility] [id number] ([id number]) Baso (Absolute) 0.1 {x10E3/uL} (Normal) Range: 0.0-0.2 Basos 1 % (Normal) Range: 0-3 Eos 2 % (Normal) Range: 0-7 Eos (Absolute) 0.1 {x10E3/uL} (Normal) Range: 0.0-0.4 Hematocrit 43.9 % (Normal) Range: 34.0-44.0 Hemoglobin 14.3 g/dL (Normal) Range: 11.5-15.0 Lymphs 43 % (Normal) Range: 14-46 Lymphs (Absolute) 2.5 {x10E3/uL} (Normal) Range: 0.7-4.5 MCH 30.4 pg (Normal) Range: 27.0-34.0 MCHC 32.5 g/dL (Normal) Range: 32.0-36.0 MCV 94 fL (Normal) Range: 80-98 Monocytes 9 % (Normal) Range: 4-13 Monocytes(Absolute) 0.5 {x10E3/uL} (Normal) Range: 0.1-1.0 Neutrophils 45 % (Normal) Range: 40-74 Neutrophils (Absolute) 2.6 {x10E3/uL} (Normal) Range: 1.8-7.8 Platelets 334 {x10E3/uL} (Normal) Range: 140-415 RBC 4.69 {x10E6/uL} (Normal) Range: 3.80-5.10 RDW 12.6 % (Normal) Range: 11.7-15.0 WBC 5.8 {x10E3/uL} (Normal) Range: 4.0-10.5 Plan of Care Name Dates Details Instructions HTN (hypertension), benign : Follow up in 3 weeks Indication: HTN (hypertension), benign HTN (hypertension), benign : BP MONITORING - SELF Indication: HTN (hypertension), benign Abnormal glucose tolerance test (Renamed from Abnormal glucose tolerance test (GTT)) : Follow up in 4 months Indication: Abnormal glucose tolerance test (Renamed from Abnormal glucose tolerance test (GTT)) Hypercholesteremia : Cholesterol mgmt Indication: Hypercholesteremia Fatty liver : Diet, Exercise, and Wt loss Indication: Fatty liver Fatty liver : HTN/CAD Red Flags Indication: Fatty liver Fatty liver : Diet, Exercise, and Wt loss Indication: Fatty liver Abnormal glucose tolerance test (Renamed from Abnormal glucose tolerance test (GTT)) : Reviewed Lab Indication: Abnormal glucose tolerance test (Renamed from Abnormal glucose tolerance test (GTT)) LLQ abdominal pain : Reviewed Diagnostic Tests Indication: LLQ abdominal pain Fatty liver : Diet, Exercise, and Wt loss Indication: Fatty liver Hypercholesteremia : Follow up in 6 months- gen med Indication: Hypercholesteremia Hypercholesteremia : Cholesterol mgmt Indication: Hypercholesteremia Elevated blood pressure (not hypertension) : Follow up in 6 weeks- for lab , wt, bp fu Indication: Elevated blood pressure (not hypertension) Elevated blood pressure (not hypertension) : BP MONITORING - SELF Indication: Elevated blood pressure (not hypertension) Ischemic stroke of frontal lobe : Continue Current Prescription(s) Indication: Ischemic stroke of frontal lobe Sinusitis, bacterial : *Antibiotic Usage Education - Female Indication: Sinusitis, bacterial Acute asthma exacerbation (Renamed from Asthma with acute exacerbation) : Solu Medrol Injection/ Education Indication: Acute asthma exacerbation (Renamed from Asthma with acute exacerbation) Ischemic stroke of frontal lobe : Reviewed Lab Indication: 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 : Reviewed Diagnostic Tests Indication: 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 : Reviewed Silk Finisher Letter Indication: 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 : Eprescribed prescriptions (G8553) Indication: Ischemic stroke of frontal lobe Cough, persistent : Follow up in 3 -4weeks wt ck Indication: Cough, persistent Cough, persistent : Follow up in 4 months- gen med Indication: Cough, persistent Cough, persistent : Eprescribed prescriptions (G8553) Indication: Cough, persistent Elevated blood pressure (not hypertension) : BP MONITORING - SELF Indication: Elevated blood pressure (not hypertension) Polyp of colon, adenomatous : Reviewed Diagnostic Tests Indication: Polyp of colon, adenomatous Sleep apnea : Reviewed Diagnostic Tests Indication: Sleep apnea Cough, persistent : Reviewed Silk Finisher Letter- dr overton /alexander [place]-no evid of gerd /cebul hh/ slight gerd Indication: Cough, persistent Polyp of colon, adenomatous : Reviewed Silk Finisher Letter- Tessie- rescope in 3yrs Indication: Polyp of colon, adenomatous Cough, persistent : Eprescribed prescriptions (G8553) Indication: Cough, persistent Cough, persistent : Continue Current Prescription(s) Indication: Cough, persistent Hypercholesteremia : Reviewed Lab Indication: Hypercholesteremia Non morbid obesity, unspecified obesity type : Diet, Exercise, and Wt loss Indication: Non morbid obesity, unspecified obesity type Cough, persistent : Follow up in 2-3 weeks- braydon cough Indication: Cough, persistent GERD (gastroesophageal reflux disease) : GERD Education Indication: GERD (gastroesophageal reflux disease) Unspecified asthma with (acute) exacerbation : Follow up in 2 weeks Indication: Unspecified asthma with (acute) exacerbation Racing heart beat : Reviewed Lab Indication: Racing heart beat Hypercholesteremia : Cholesterol mgmt Indication: Hypercholesteremia Unspecified asthma with (acute) exacerbation : Eprescribed prescriptions (G8553) Indication: Unspecified asthma with (acute) exacerbation Chest tightness : Follow up in 2 weeks- lab / doppler / how inhalers are going Indication: Chest tightness GERD (gastroesophageal reflux disease) : GERD Education Indication: GERD (gastroesophageal reflux disease) Hypercholesteremia : Cholesterol mgmt Indication: Hypercholesteremia Vitamin D deficiency, unspecified : Eprescribed prescriptions (G8553) Indication: Vitamin D deficiency, unspecified Body aches : Eprescribed prescriptions (G8553) Indication: Body aches FATIGUE : Follow up in 6 weeks- 30 mins std process fu is fine Indication: FATIGUE FATIGUE : Reviewed Lab Indication: FATIGUE FATIGUE : Follow up in 3 weeks Indication: FATIGUE FATIGUE : Reviewed Lab Indication: FATIGUE Allergic rhinitis due to other allergen : Eprescribed prescriptions (G8553) Indication: Allergic rhinitis due to other allergen FATIGUE : Follow up in 1 week Indication: FATIGUE FATIGUE : *fatigue education Indication: FATIGUE Chest pain : Follow up Indication: Chest pain Hypercholesteremia : Follow up in 6 months Indication: Hypercholesteremia GERD (gastroesophageal reflux disease) : GERD Education Indication: GERD (gastroesophageal reflux disease) Hypothyroidism, unspecified : Follow up in 6 months Indication: Hypothyroidism, unspecified Non morbid obesity, unspecified obesity type : Diet, Exercise, and Wt loss Indication: Non morbid obesity, unspecified obesity type Vitamin D deficiency, unspecified : Continue Current Prescription(s) Indication: Vitamin D deficiency, unspecified Hyperglyceridemia : Cholesterol mgmt Indication: Hyperglyceridemia GERD (gastroesophageal reflux disease) : GERD Education Indication: GERD (gastroesophageal reflux disease) Vitamin D deficiency, unspecified : Follow up in 6 months Indication: Vitamin D deficiency, unspecified Hyperglyceridemia : Cholesterol mgmt Indication: Hyperglyceridemia GERD (gastroesophageal reflux disease) : GERD Education Indication: GERD (gastroesophageal reflux disease) GERD (gastroesophageal reflux disease) : GERD Education Indication: GERD (gastroesophageal reflux disease) Abdominal pain, acute, left lower quadrant : Diet, Exercise, and Wt loss Indication: Abdominal pain, acute, left lower quadrant COUGH, NOS : Follow up if no improvement or if symptoms worsen Indication: COUGH, NOS Rash : Itching: itching Indication: Rash Vitamin B12 deficiency (non anemic) : Reviewed Lab Indication: Vitamin B12 deficiency (non anemic) Hypercholesteremia : *Cholesterol - Nonprescription Treatment Indication: Hypercholesteremia Hypercholesteremia : Cholesterol mgmt Indication: Hypercholesteremia Hypothyroidism, unspecified : Continue Current Prescription(s) Indication: Hypothyroidism, unspecified Hypothyroidism, unspecified : Reviewed Lab Indication: Hypothyroidism, unspecified Pulmonary embolism : Continue Current Prescription(s) Indication: Pulmonary embolism Depressive disorder : Continue Current Prescription(s) Indication: Depressive disorder Depressive disorder : Continue Current Prescription(s) Indication: Depressive disorder Otitis media : *Antibiotic Usage Education - Female Indication: Otitis media Unspecified bacterial pneumonia : Reviewed Lab Indication: Unspecified bacterial pneumonia Allergic rhinitis due to other allergen : Allergy proofing Indication: Allergic rhinitis due to other allergen Allergic rhinitis due to other allergen : Allergy control Indication: Allergic rhinitis due to other allergen Allergic rhinitis due to other allergen : *URI Symptoms Indication: Allergic rhinitis due to other allergen MYOCARDIAL INFARCTION, NOS : Reviewed Silk Finisher Letter Indication: MYOCARDIAL INFARCTION, NOS MYOCARDIAL INFARCTION, NOS : Reviewed Diagnostic Tests Indication: MYOCARDIAL INFARCTION, NOS Vitamin D deficiency, unspecified : *ERGOCALCIFEROL DOSAGE PER SHEWMON Indication: Vitamin D deficiency, unspecified Fatigue : Reviewed Lab Indication: Fatigue Hypercholesteremia : Diet, Exercise, and Wt loss Indication: Hypercholesteremia Hypercholesteremia : Reviewed Lab Indication: Hypercholesteremia Anxiety : Continue Current Prescription(s) Indication: Anxiety GERD (gastroesophageal reflux disease) : GERD Education Indication: GERD (gastroesophageal reflux disease) Hypercholesteremia : *Cholesterol - Nonprescription Treatment Indication: Hypercholesteremia Hypercholesteremia : Cholesterol mgmt Indication: Hypercholesteremia Depressive disorder : Follow up in 1 month Indication: Depressive disorder Fatigue : *fatigue education Indication: Fatigue Hypothyroidism, unspecified : Reviewed Lab Indication: Hypothyroidism, unspecified Hypercholesteremia : Follow up in 6 months Indication: Hypercholesteremia Elevated blood-pressure reading without diagnosis of hypertension : Follow up in 2 months Indication: Elevated blood-pressure reading without diagnosis of hypertension Elevated blood-pressure reading without diagnosis of hypertension : BP MONITORING - SELF Indication: Elevated blood-pressure reading without diagnosis of hypertension Non morbid obesity, unspecified obesity type : Diet, Exercise, and Wt loss Indication: Non morbid obesity, unspecified obesity type GERD (gastroesophageal reflux disease) : GERD Education Indication: GERD (gastroesophageal reflux disease) Hypercholesteremia : *Cholesterol - Nonprescription Treatment Indication: Hypercholesteremia Hypercholesteremia : Cholesterol mgmt Indication: Hypercholesteremia Hypercholesteremia : FOLLOW UP IN 4 MONTHS Indication: Hypercholesteremia GERD (gastroesophageal reflux disease) : GERD Education Indication: GERD (gastroesophageal reflux disease) Non morbid obesity, unspecified obesity type : Diet, Exercise, and Wt loss Indication: Non morbid obesity, unspecified obesity type Hypercholesteremia : CHOLESTEROL MGMT. Indication: Hypercholesteremia Hypercholesteremia : *Cholesterol - Medication Side Effects Indication: Hypercholesteremia Hypercholesteremia : *Cholesterol - Nonprescription Treatment Indication: Hypercholesteremia Upper respiratory infection : *Antibiotic Usage Education - Female Indication: Upper respiratory infection Hypercholesteremia : FOLLOW UP IN 4 MONTHS Indication: Hypercholesteremia Non morbid obesity, unspecified obesity type : Diet, Exercise, and Wt loss Indication: Non morbid obesity, unspecified obesity type Hypercholesteremia : CHOLESTEROL MGMT. Indication: Hypercholesteremia Hypercholesteremia : *Cholesterol - Nonprescription Treatment Indication: Hypercholesteremia Poison juan : Solu Medrol Injection/ Education Indication: Poison juan Hypercholesteremia : FOLLOW UP IN 4 MONTHS Indication: Hypercholesteremia Depressive disorder : FOLLOW UP IN 1 MONTH for rx fu Indication: Depressive disorder Acute sinusitis, unspecified : *URI Treatment Indication: Acute sinusitis, unspecified Acute sinusitis, unspecified : *URI Symptoms Indication: Acute sinusitis, unspecified Acute sinusitis, unspecified : *Antibiotic Usage Education - Female Indication: Acute sinusitis, unspecified Non morbid obesity, unspecified obesity type : Diet, Exercise, and Wt loss Indication: Non morbid obesity, unspecified obesity type Hypothyroidism, unspecified : Continue Current Prescription(s) Indication: Hypothyroidism, unspecified Hypercholesteremia : CHOLESTEROL MGMT. Indication: Hypercholesteremia Hypercholesteremia : *Cholesterol - Nonprescription Treatment Indication: Hypercholesteremia Hypercholesteremia : *Cholesterol - Medication Side Effects Indication: Hypercholesteremia GERD (gastroesophageal reflux disease) : GERD Education Indication: GERD (gastroesophageal reflux disease) Hypercholesteremia : FOLLOW UP IN 1 YEAR Indication: Hypercholesteremia Hypercholesteremia : CHOLESTEROL MGMT. Indication: Hypercholesteremia Hypercholesteremia : *Cholesterol - Nonprescription Treatment Indication: Hypercholesteremia Hypercholesteremia : *Cholesterol - Medication Side Effects Indication: Hypercholesteremia GERD (gastroesophageal reflux disease) : GERD Education Indication: GERD (gastroesophageal reflux disease) Hypothyroidism, unspecified : Reviewed Lab Indication: Hypothyroidism, unspecified Hypercholesteremia : Reviewed Lab Indication: Hypercholesteremia Hypercholesteremia : Cholesterol - Medication Side Effects Indication: Hypercholesteremia Hypercholesteremia : Cholesterol - Nonprescription Treatment Indication: Hypercholesteremia Hypercholesteremia : CHOLESTEROL MGMT. Indication: Hypercholesteremia GERD (gastroesophageal reflux disease) : GERD Education Indication: GERD (gastroesophageal reflux disease) Abdominal pain, acute, right lower quadrant : Diet, Exercise, and Wt loss Indication: Abdominal pain, acute, right lower quadrant Hyperglyceridemia : CHOLESTEROL MGMT. 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) Cellulitis and abscess of leg, except foot : FOLLOW UP TOMORROW Indication: Cellulitis and abscess of leg, except foot Cellulitis and abscess of leg, except foot : FOLLOW UP TOMORROW Indication: Cellulitis and abscess of leg, except foot Cellulitis and abscess of leg, except foot : IV Indication: Cellulitis and abscess of leg, except foot Acute sinusitis, unspecified : *URI Treatment Indication: Acute sinusitis, unspecified Acute sinusitis, unspecified : Antibiotic Usage Education - Female Indication: Acute sinusitis, unspecified Acute sinusitis, unspecified : URI Symptoms Indication: Acute sinusitis, unspecified Planned Observations TSH ([id number])Indication: Hypothyroidism, unspecified On: 3-Gqp-355921:02 Request METABOLIC PANEL, COMPREHENSIVE ([id number])Indication: Abnormal glucose tolerance test (Renamed from Abnormal glucose tolerance test (GTT)) On: 9-Jha-298794:02 Request CBC W/AUTO DIFF WBC ([id number])Indication: Abnormal glucose tolerance test (Renamed from Abnormal glucose tolerance test (GTT)) On: :02 Request LIPOPROTEIN, BLD, BY NMR ([id number])Indication: Hypercholesteremia On: :01 Request CALCIFIDIOL (85132) VIT D 25Indication: Vitamin D deficiency, unspecified On: 1-Zyk-409646:01 Request Rapid Flu (56515 x 2)Indication: Fever and chills On: 45-Hge-719446:22 Request EB ANTIBODY NUCLR ANTIGN ([id number])Indication: Lymphadenopathy, cervical On: 21-Xnl-984769:29 Request D-Dimer ([id number])Indication: History of DVT (deep vein thrombosis) On: 75-Kph-755960:06 Request METABOLIC PANEL, COMPREHENSIVE ([id number])Indication: Hypercholesteremia On: :42 Request CBC W/AUTO DIFF WBC ([id number])Indication: Hypercholesteremia On: :42 Request LIPID PANEL ([id number])Indication: Hypercholesteremia On: :42 Request TSH ([id number])Indication: Hypothyroidism, unspecified On: :42 Request CALCIFIDIOL (30418) VIT D 25Indication: Vitamin D deficiency, unspecified On: :41 Request LIPID PANEL ([id number])Indication: Hypercholesteremia On: :35 Request Comments: do in 4months TSH ([id number])Indication: Hypothyroidism, unspecified On: :30 Request Anti-TPO Antibody ([id number])Indication: Hypothyroidism, unspecified On: :25 Request T4, FREE (THYROXINE) ([id number])Indication: Hypothyroidism, unspecified On: : Request T3, FREE (TRIDOTHYRONINE) ([id number])Indication: Hypothyroidism, unspecified On: 14-Jul-2012 Request TSH ([id number])Indication: Hypothyroidism, unspecified On: 14-Jul-2012 Request D-Dimer ([id number])Indication: SOB On: :25 Request Antiphospholipid atb (12798)Indication: Pulmonary embolism On: :12 Request Comments: IgM and igG, IgA anticardiolipin antibody i also need the Beta 2 glycoprotein anticardiolipin antibody -IgG, and IgM Protein S Profile ([id number])Indication: Pulmonary embolism On: :05 Request Protein C Profile (98334)Indication: Pulmonary embolism On: :05 Request Homocysteine, Plasma (19422)Indication: Pulmonary embolism On: : Request ANTICOAG ANTTHROMB III & ASSAY (36676)Indication: Pulmonary embolism On: :05 Request ANTITHROMBIN III ACTIVTY (73148)Indication: Pulmonary embolism On: :05 Request CLOTTING FACTOR II (21950)Indication: Pulmonary embolism On: : Request Factor V Leiden (22048)Indication: Pulmonary embolism On: :05 Request PT (Prothrobim Time) ([id number])Indication: Pulmonary embolism On: 51-Nyw-389695:02 Request PT (Prothrobim Time) ([id number])Indication: Pulmonary embolism On: 88-Ivr-24689:40 Request Comments: standing order TSH ([id number])Indication: Anxiety On: :52 Request LIPID PANEL ([id number])Indication: Hypercholesteremia On: :52 Request VITAMIN B-12 (CYANOCOBALAMIN) ([id number])Indication: Vitamin B12 deficiency (non anemic) On: :51 Request CALCIFIDIOL ([id number]) VIT D 25Indication: Vitamin D deficiency, unspecified On: :48 Request PT (Prothrobim Time) ([id number])Indication: Pulmonary embolism On: :48 Request KATHY CULTURE-OTHER ([id number])Indication: Staphylococcal septicemia, unspecified On: :46 Request Comments: narmartha -both KATHY CULTURE-BLOOD (22772)Indication: Fever, unspecified On: :42 Request PT (Prothrobim Time) ([id number])Indication: Pulmonary embolism On: :28 Request CULTURE, SPUTUM ([id number])Indication: Wheezing On: 16-Vxf-243113:34 Request PT (Prothrobim Time) ([id number])Indication: Pulmonary embolism On: 23-Ive-236071:29 Request PT (Prothrobim Time) ([id number])Indication: Pulmonary embolism On: 98-Mei-737159:57 Request Comments: inr CALCIFIDIOL ([id number]) VIT D 25Indication: Fatigue On: :32 Request Folate ([id number])Indication: Fatigue On: :32 Request VITAMIN B-12 (CYANOCOBALAMIN) ([id number])Indication: Fatigue On: :32 Request TSH ([id number])Indication: Fatigue On: :32 Request SED RATE ERYTHROCYTE ([id number])Indication: Fatigue On: :32 Request RHEUMATOID FACTOR-QUANT ([id number])Indication: Fatigue On: :32 Request METABOLIC PANEL, COMPREHENSIVE ([id number])Indication: Fatigue On: :32 Request C-REACTIVE PROTEIN (87757)Indication: Fatigue On: :32 Request CBC (AUTO) ([id number])Indication: Fatigue On: :32 Request RIKA (ANTINUCLEAR ANTIBODY) ([id number])Indication: Fatigue On: :32 Request LIPID PANEL ([id number])Indication: Hypercholesteremia On: 24-Nov-2010 Request TSH ([id number])Indication: Hypothyroidism, unspecified On: :33 Request KATHY CULTURE-OTHER ([id number])Indication: Upper respiratory infection On: :32 Request Rapid Strep Test, Office ([id number])Indication: Upper respiratory infection On: 67-Fun-021738:32 Request LIPID PANEL ([id number])Indication: Hypercholesteremia On: 5-Nnh-865617:36 Request TSH ([id number])Indication: Hypothyroidism, unspecified On: 9-Hcd-044770:35 Request LIPID PANEL ([id number])Indication: Hypercholesteremia On: 16-Ror-631613:21 Request Comments: do in 4 months Glucose, PP/2 Hour (18712)Indication: Family history of diabetes mellitus On: 72-Par-697061:18 Request URINALYSIS, W/ MICRO ([id number])Indication: Other abnormal finding of urine On: 71-Fnd-69374:02 Request TSH ([id number])Indication: Hypothyroidism, unspecified On: :55 Request LIPID PANEL ([id number])Indication: Hypercholesteremia On: 65-Hwk-54648:55 Request URINE KATHY CULTURE-JASON COL COUNT ([id number])Indication: Other abnormal finding of urine On: 42-Brc-830881:21 Request Urinalysis, Office ([id number])Indication: Other abnormal finding of urine On: 92-Ofk-423534:20 Request URINE KATHY CULTURE-JASON COL COUNT ([id number])Indication: Dysuria On: 80-Kry-405869:35 Request LIPID PANEL ([id number])Indication: Hypercholesteremia On: 48-Oez-163312:28 Request Comments: do in 6 months TSH ([id number])Indication: Hypothyroidism, unspecified On: :51 Request LIPID PANEL ([id number])Indication: Hypothyroidism, unspecified On: 10-Dec-20088:51 Request LIPID PANEL ([id number])Indication: Hyperglyceridemia On: 09-Xop-025152:26 Request Comments: DO IN 4-6 MONTHS KATHY CULTURE-OTHER ([id number])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) On: :24 Request SKIN TEST INTRADERMAL TB ([id number])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) On: :19 Request Comments: given 0.1 in left forearm LOT#[id number] exp.07/10-aw Metabolic Panel, Comprehensive ([id number])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) On: :19 Request ANTISTREPTOLYSIN O-SCREN ([id number])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) On: :18 Request URINALYSIS ([id number])Indication: Dysuria On: :51 Request Planned Encounters Medical; 4 Month FU - On: 14-Feb-2018 13:15 [facility] Sho Lozano DO, DO, Kathleen Planned Procedures Doppler Ultrasound OtherBy: Blake On: 02-Oct-2017 Sho Orona DO, DO, Kathleen Comments: lower extremity CXR PA & LAT ([id number])By: Blake DAMON, On: 02-Oct-2017 Intent Sho Carvajal DO Spirometry ([id number])By: Blake DAMON, On: 02-Oct-2017 Intent Sho Carvajal DO Comments: normal with text book curves on restrictions ELECTROCARDIOGRAM, COMPLETE (ECG) On: 22-Mar-2017 Intent ([id number])By: Sho Lozano DO Comments: nsr no acute chg Sho Lozano DO CT SCAN, ABDOMEN W/O CONTRAST On: 22-Mar-2017 Intent ([id number])By: Sho Lozano DO, DO, Kathleen Wax CurettesBy: Sho Lozano DO On: 20-Nov-2016 Intent Sho Lozano DO Ear Irrigation ([id number])By: Blake On: 20-Nov-2016 Intent Sho DAMON DO, Kathleen Comments: Ear Irrigation performed on:bilateralAmount/color removed cerumen: brown, moderate amountOUtcome:clear and tolerated Spirometry ([id number])By: Blake DAMON, On: 20-Nov-2016 Intent Sho Carvajal DO Comments: normal Solu- Medrol Injection, 125mg On: 20-Nov-2016 Intent ([id number])By: Sho Lozano DO Comments: lot [id number] mgright gmIMas, rn or lpn Sho Lozano DO Aerosol Treatment ([id number])By: Blake On: 20-Nov-2016 Sho Orona DO, DO, Kathleen Comments: no wheeze more ae CT SCAN OF NECK TISSUE WITH On: 16-Dec-2015 Intent CONTRAST ([id number])By: Sho Lozano DO, DO, Kathleen CT - Chest (IV Contrast Needed)By: On: 27-Sep-2015 Intent Elida Horton CNP Comments: STAT Venous Doppler - RightBy: Clifford On: 27-Sep-2015 Intent Elida DIAS Spirometry ([id number])By: Blake DAMON, On: 12-Apr-2015 Intent Sho Carvajal DO Comments: looks good HOME SLEEP STUDY TEST (HST) WITH On: 12-Apr-2015 Intent TYPE II PORTABLE MONITOR, UNATTENDED; MINIMUM OF 7 CHANNELS: EEG, EOG, EMG, ECG/HEART RATE, AIRFLOW, RESPIRATORY EFFORT AND OXYGEN SATURATION ([id number])By: Sho Lozano DO, DO, Kathleen ATTENDED SLEEP STUDY ([id number])By: On: 02-Dec-2014 Intent Sho Lozano DO, DO, Kathleen Aerosol Treatment ([id number])By: Blake On: 16-Nov-2014 Sho Orona DO, DO, Kathleen Comments: clear afdter treatmenet Doppler Ultrasound OtherBy: Blake On: 16-Nov-2014 Sho Orona DO, DO, Kathleen BILATERAL MAMMOGRAMS ([id number])By: On: 30-Jun-2014 Intent Sho Lozano DO, DO, Kathleen Aerosol Treatment ([id number])By: Blake On: 12-Mar-2014 Sho Orona DO, DO, Kathleen Comments: more a/e no wheeze ELECTROCARDIOGRAM, COMPLETE (ECG) On: 18-Dec-2013 Intent ([id number])By: Elida Horton CNP MAMMOGRAM, SCREENING, BOTH BREASTS On: 13-May-2013 Intent ([id number])By: Sho Lozano DO, DO, Kathleen Eprescribed prescriptions On: 30-May-2012 Intent (G8553)By: hSo Lozano DO, DO, Kathleen Eprescribed prescriptions On: 14-May-2012 Intent (G8553)By: Carmelina Newman LPN Spirometry ([id number])By: Blake DAMON, On: 18-Jan-2012 Intent Sho Carvajal DO Comments: not bad-- some technique bad related results EKG ([id number])By: Sho Lozano DO On: 18-Jan-2012 Intent Sho Lozano DO Comments: nsr no acute chg Aerosol Treatment ([id number])By: Clifford On: 03-Dec-2011 Intent Elida DIAS Solu -Medrol Injection, 125 mg On: 12-Nov-2011 Intent ([id number])By: Elida Horton CNP Comments: Lot #[id number]-r hip, IMDose- prefilled syringegiven by:MARIAN Almazan signed Eprescribed prescriptions On: 12-Nov-2011 Intent (G8553)By: Roxie Vázquez LPN Pulse Oximetry ([id number])By: Blake On: 04-Apr-2011 Sho Orona DO, DO, Kathleen Comments: 95% CT - Chest: pe protocolBy: Blake On: 04-Apr-2011 Sho Orona DO, DO, Kathleen EKG ([id number])By: Sho Lozano DO On: 04-Apr-2011 Intent Sho Lozano DO Comments: NSR -- SMALL CONDUCTION DELAY IN INFERIOR LEADS -- WILL COMPARE- SEEMS TO BE NEW VS LEAd placemnt CT - Sinuses CompleteBy: Blake DAMON, On: 07-Feb-2011 Intent Sho Carvajal DO Radiology - Chest- PA and LatBy: On: 02-Feb-2011 Intent Sho Lozano DO, DO, Kathleen Pulse Oximetry ([id number])By: Blake On: 02-Feb-2011 Intent Sho DAMON DO, Kathleen Aerosol Treatment ([id number])By: Blake On: 02-Feb-2011 Intent DOSho DO, Kathleen Pulse Oximetry ([id number])By: Clifford On: 29-Jan-2011 Intent ARUN Jamee Aerosol Treatment ([id number])By: Clifford On: 29-Jan-2011 Intent ARUN Jamee Eprescribed prescriptions On: 29-Jan-2011 Intent (G8553)By: Elida Horton CNP MYOCARDIAL INFARCTION EDUCATIONBy: On: 11-Jan-2011 Intent Sho Lozano DO, DO, Kathleen FLU VAC, SPLIT, >3 YEARS, INTRAMUSC On: 05-Jan-2011 Intent ([id number])By: Sho Lozano DO Comments: Lot #[id number]/12Site-left deltoidgiven by: OSCAR Kaur DO, Kathleen B 12 Injection, 1000 mcg ([id number])By: On: 05-Jan-2011 Intent Sho Lozano DO, DO, Comments: Lot #[id number]-right deltoidDose- 1 mlgiven by: OSCAR Kaur IMMUNIZ ADMNIN, 1 VAC, SNGL/COMBO On: 05-Jan-2011 Intent ([id number])By: Sho Lozano DO, DO, Kathleen Eprescribed prescriptions On: 05-Oct-2010 Intent (G8553)By: Sho Lozano DO, DO, Kathleen Solu -Medrol Injection, 125 mg On: 10-Jul-2010 Intent ([id number])By: Elida Horton CNP EKG ([id number])By: Sho Lozano DO On: 15-Jun-2010 Intent Sho Lozano DO Comments: nsr no acute chg Holter Monitor 24 hrsBy: Blake DAMON, On: 15-Jun-2010 Intent Sho Carvajal DO Carotid DopplerBy: Blake DAMON, On: 15-Jun-2010 Intent Sho Carvajal DO CT - Brain/HeadBy: Jazmin Sierra DO On: 22-May-2010 Intent Comments: stat call results CT - Sinuses CompleteBy: Rigo DAMON, On: 22-May-2010 Intent Jazmin Vazquez Solu -Medrol Injection, 125 mg On: 22-Nov-2009 Intent ([id number])By: Jazmin Sierra DO Comments: Lot #[id number]-left hipDose- 125 mggiven by:[facility] Solu- Medrol Injection, 125mg On: 01-Nov-2009 Intent ([id number])By: Sho Lozano DO, DO, Kathleen IMMUNIZ ADMNIN, 1 VAC, SNGL/COMBO On: 29-Jul-2009 Intent ([id number])By: Sho Lozano DO, DO, Kathleen EKG ([id number])By: Sho Lozano DO On: 29-Jul-2009 Intent Sho Lozano DO Comments: nsr no acute chgs PNEUM VAC ADLT/IMUMNOSPR, SBC/INTRM On: 29-Jul-2009 Intent ([id number])By: Sho Lozano DO Comments: Lot:[id number]:0.5Route:IMSite:Left Deltoid Given by: ALY Das DO, Kathleen TDAP VACCINE >7 IM ([id number])By: On: 10-Dec-2008 Intent Sho Lozano DO, DO, Comments: Lot #[id number] deltoidgiven by:NORIS Berkowitz Solu -Medrol Injection, 125 mg On: 09-Aug-2008 Intent ([id number])By: Jazmin Sierra DO Comments: lot # [id number]- 2ML tolerated well Ashleigh LU CT - Abdomen & Pelvis (IV Contrast On: 29-Oct-2007 Intent Needed)By: Sho Lozano DO, DO, Kathleen SPECIMEN HNDLNG/TRNSPRT, OFFC > LAB On: 22-Jan-2007 Intent ([id number])By: Elida Horotn CNP Rocephon Injection, 2 Gm On: 22-Jan-2007 Intent ([id number])By: Rebekah Tian LPN Comments: given by Dr. Lozano lot [id number] exp 05-10, IV flushed with 0.5cc before and after iv med with 0.9% sodium chloride. IV Infusion ([id number])By: Asmita, On: 22-Jan-2007 Intent Rebekah MOORE IV Infusion ([id number])By: Asmita, On: 21-Jan-2007 Intent Rebekah MOORE Comments: 2g given trough IV by Constance Donnie lot [id number] 05-10 iv flushed with 0.9% sodum chloride 0.5cc before and after. Venous Doppler - RightBy: Clifford On: 20-Jan-2007 Intent Elida DIAS Comments: Rt lower ext doppler am [facility] INFUSION, NORMAL SALINE SOLUTION , On: 20-Jan-2007 Intent 250 CC ([id number])By: Elida Horton CNP THER/PROPH/DIAG IV INF, INIT On: 20-Jan-2007 Intent ([id number])By: Elida Horton CNP Comments: #22 gauge needle placed to right forearm per erussell without difficulty Rocephin Injection, 2 Gram On: 20-Jan-2007 Intent ([id number])By: Elida Horton CNP Comments: Lot # [id number] exp 05-10 per erussell Toradol Injection, 30 mg On: 13-Dec-2006 Intent ([id number])By: Sho Lozano DO Comments: given in left hip, 1cc, lot#[id number], exp.01.09, Sho Lozano DO Planned Medications INJECTION, METHYLPREDNISOLONE SODIUM SUCCINATE, UP TO 125 MG Ordered: 10-Jul-2010 Pending Elida Horton CNP INJECTION, METHYLPREDNISOLONE SODIUM SUCCINATE, UP TO 125 MG Ordered: 12-Nov-2011 Pending Elida Horton CNP INJECTION, METHYLPREDNISOLONE SODIUM SUCCINATE, UP TO 125 MG Ordered: 20-Nov-2016 Pending Sho Lozano DO, DO, Kathleen Vitamin B-12 1000 MCG/ML Injection Solution Ordered: 05-Jan-2011 Pending Sho Lozano DO, DO, Kathleen Instructions Name Dates Details Abnormal glucose tolerance test (Renamed from Abnormal glucose tolerance test (GTT)) : How to access health information online Indication: Abnormal glucose tolerance test (Renamed from Abnormal glucose tolerance test (GTT)) Abnormal glucose tolerance test (Renamed from Abnormal glucose tolerance test (GTT)) : How to access health information online - Detail Indication: Abnormal glucose tolerance test (Renamed from Abnormal glucose tolerance test (GTT)) Abnormal glucose tolerance test (Renamed from Abnormal glucose tolerance test (GTT)) : Patient Instructions Indication: Abnormal glucose tolerance test (Renamed from Abnormal glucose tolerance test (GTT)) Non-smoker : How to access health information online Indication: Non-smoker Non-smoker : How to access health information online - Detail Indication: Non-smoker Non-smoker : Patient Instructions Indication: Non-smoker Non-smoker : How to access health information online Indication: Non-smoker Non-smoker : How to access health information online - Detail Indication: Non-smoker Non-smoker : Patient Instructions Indication: Non-smoker Non-smoker : How to access health information online Indication: Non-smoker Non-smoker : How to access health information online - Detail Indication: Non-smoker Non-smoker : Patient Instructions Indication: Non-smoker Ischemic stroke of frontal lobe : How to access health information online Indication: 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 : How to access health information online - Detail Indication: 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 : Patient Instructions Indication: Ischemic stroke of frontal lobe Cough, persistent : How to access health information online Indication: Cough, persistent Cough, persistent : How to access health information online - Detail Indication: Cough, persistent Cough, persistent : Patient Instructions Indication: Cough, persistent Vitamin D deficiency, unspecified : Patient Instructions Indication: Vitamin D deficiency, unspecified Cough, persistent : Patient Instructions Indication: Cough, persistent Unspecified asthma with (acute) exacerbation : How to access health information online Indication: Unspecified asthma with (acute) exacerbation Unspecified asthma with (acute) exacerbation : How to access health information online - Detail Indication: Unspecified asthma with (acute) exacerbation Unspecified asthma with (acute) exacerbation : Patient Instructions Indication: Unspecified asthma with (acute) exacerbation Vitamin D deficiency, unspecified : How to access health information online Indication: Vitamin D deficiency, unspecified Vitamin D deficiency, unspecified : How to access health information online - Detail Indication: Vitamin D deficiency, unspecified Vitamin D deficiency, unspecified : Patient Instructions Indication: Vitamin D deficiency, unspecified Hypoglycemia : Patient Instructions Indication: Hypoglycemia FATIGUE : Patient Instructions Indication: FATIGUE Allergic rhinitis due to other allergen : How to access health information online Indication: Allergic rhinitis due to other allergen Allergic rhinitis due to other allergen : How to access health information online - Detail Indication: Allergic rhinitis due to other allergen Hypothyroidism, unspecified : Patient Instructions Indication: Hypothyroidism, unspecified Vitamin D deficiency, unspecified : Patient Instructions Indication: Vitamin D deficiency, unspecified Rash : Patient Instructions Indication: Rash Encounters Annotation/Addendum On: 09-Oct-2017 8:47 Encounter Diagnosis: Unspecified Diagnosis End: 09-Oct-2017 8:52 [facility] Annotation/Addendum On: 09-Oct-2017 8:40 [facility] End: 09-Oct-2017 8:47 Office Visit On: 02-Oct-2017 11:16 Encounter Reason: Follow up for chronic medical issues - The patient does not feel well, has decreased energy level and is sleeping poorly. Patient has been non- compliant with instructions. Current medication use: non-co End: 02-Oct-2017 12:45 mpliant with dosing regimen. Patient sleeps 7 hours per night. Nutrition: supplemental vitamins. The medical issues the patient is following up for include All identified problems below, blood sugar iss ues, high blood pressure, high cholesterol and other. blood pressure range :.Encounter Diagnosis: Abnormal glucose tolerance test (Renamed from Abnormal glucose tolerance test (GTT)), BMI 50.0-59.9, adult, Fatty liver, Hypercholesteremia, Vitamin D deficiency, unspecified, Asplenia syndrome (759.0), SOB (shortness of breath), Hypothyroidism, unspecified, History of hodgkin's lymphoma, Bloating symptom, HTN (hypertension), benign, Nutritional counseling [facility] Annotation/Addendum On: 20-May-2017 14:17 Encounter Diagnosis: UTI (urinary tract infection) End: 20-May-2017 14:21 [facility] Office Visit On: 17-May-2017 14:00 Encounter Reason: UTI - The urinary symptoms are described as burning. The symptoms have been occurring for weeks and have been constant. The urine is described as clear. The patient denies the use of oral contraceptive End: 17-May-2017 14:28 s, antibiotics, hormone replacement therapy or pyridium/uristat.Encounter Diagnosis: BMI 50.0-59.9, adult, Non-smoker, Dysuria (788.1), Fatty liver [facility] Phone Encounter On: 11-Apr-2017 7:59 Encounter Diagnosis: Fatty liver End: 11-Apr-2017 8:42 [facility] Office Visit On: 29-Mar-2017 14:48 Encounter Reason: Follow up tests - Date: (03/28/16).Encounter Diagnosis: BMI 50.0- 59.9, adult, Non-smoker, Fatty liver, Elevated LFTs (Renamed from Elevated liver function tests), LLQ abdominal pain, End: 29-Mar-2017 16:06 Abnormal glucose tolerance test (Renamed from Abnormal glucose tolerance test (GTT)), Nutritional counseling [facility] Office Visit On: 22-Mar-2017 11:41 Encounter Reason: Follow up for chronic medical issues - The patient does not feel well (I think there is something going on where the hernia repair was. It hurts on rt side and I am alwayts out breath. Weight gain since End: 22-Mar-2017 13:13 lats appt.), has decreased energy level and is sleeping well. Patient has been compliant with instructions. Current medication use: no side effects and compliant with dosing regimen. Patient sleeps 7 h ours per night. Nutrition: balanced diet and supplemental vitamins. The medical issues the patient is following up for include All identified problems below, asthma, high blood pressure, high cholestero l, hypothyroid and other. blood pressure range : and weight :.Encounter Diagnosis: BMI 50.0-59.9, adult, Non-smoker, Fever and chills, Body aches, LLQ abdominal pain, Vitamin D deficiency, unspecified, Hypothyroidism, unspecified, Hypercholesteremia , PFO (patent foramen ovale), Ischemic stroke of frontal lobe, History of non anemic vitamin B12 deficiency, Sleep apnea, Viral URI, Elevated blood pressure (not hypertension) [facility] Office Visit On: 20-Nov-2016 10:35 Encounter Reason: Cold Symptoms - Symptoms include nasal congestion, postnasal drainage, productive cough (sometimes yellow, sometimes clear, has had blood in it) and headache (wakes up every morning with severe headache End: 20-Nov-2016 12:53 , similiar to a headache she had when she had meningitis.). Onset was 2 day(s) ago. The patient describes this as worsening. Associated symptoms include ear pain (L ear), fatigue and diarrhea. Current t reatment includes non-prescription cold medication, oral decongestants and antibiotics (started taking some amoxicillin that was left over from her son).Encounter Diagnosis: Sinusitis, bacterial, Chest tightness, Asplenia syndrome (759.0), Acute asthma exacerbation (Renamed from Asthma with acute exacerbation), Cough, Hearing loss of right ear due to cerumen impaction [facility] Office Visit On: 06-Aug-2016 14:25 Encounter Reason: Follow up hospital - Reason for ER visit: note: (cva)., [ADDITIONAL REASON] Transition into care - The patient is transitioning into care from a hospital . Encounter Diagnosis: Ischemic stroke of frontal lobe, End: 06-Aug-2016 15:40 PFO (patent foramen ovale) [facility] Office Visit On: 16-Dec-2015 9:53 Encounter Reason: Cough - No changes in management were made at the last visit. Symptoms include cough, while symptoms do not include chills or fever. The cough is described as hacking. There is no known event that prece End: 16-Dec-2015 12:34 ded symptom onset. The cough occurs constantly. Symptoms are described as moderate in severity.Encounter Diagnosis: Sorethroat, Bronchitis, Cough, Lymphadenopathy, cervical, Hypothyroidism, unspecified, History of hodgkin's lymphoma, Asplenia syndrome (759.0) [facility] Annotation/Addendum On: 27-Sep-2015 16:36 Encounter Diagnosis: Elevated d-dimer End: 27-Sep-2015 16:41 [facility] Office Visit On: 27-Sep-2015 14:48 Encounter Reason: Edema - Symptoms include edema. The edema involves the right lower extremity. Onset was gradual 2 week(s) ago. There is no known event that preceded symptom onset. The symptoms occur constantly. The pat End: 27-Sep-2015 15:21 ient describes this as worsening. Associated symptoms include dyspnea, localized redness, localized warmth, calf pain and calf swelling. Previous presentation included right lower extremity edema and dyspnea.Encounter Diagnosis: Cellulitis, History of DVT (deep vein thrombosis), Personal history of PE (pulmonary embolism) [facility] Phone Encounter On: 04-Jul-2015 17:12 Encounter Diagnosis: Cough, persistent End: 04-Jul-2015 17:14 [facility] Office Visit On: 01-Jul-2015 8:38 Encounter Reason: Follow up for chronic medical issues - The patient feels well with minor complaints, has good energy level and is sleeping well. Patient has been compliant with instructions. Current medication use: no End: 01-Jul-2015 11:46 side effects and compliant with dosing regimen. Patient sleeps 7 hours per night. Nutrition: balanced diet and supplemental vitamins. The medical issues the patient is following up for include All ident ified problems below, gastric reflux, high blood pressure and hypothyroid. blood pressure range : and weight :., [ADDITIONAL REASON] Follow up tests - Date: (06/20/15 and 05-18). , [ADDITIONAL REASON] UTI - The urinary symptoms are described as painful urination and frequency. The symptoms have been occurring for days and have been constant. The urine is described as clear. Encounter Diagnosis: Cough, persistent, Dysuria (788.1), Polyp of colon, adenomatous, Hiatal hernia, Sleep apnea, Vitamin D deficiency, unspecified, Hypothyroidism, unspecified, Hypercholesteremia, Asplenia syndrome (759.0), Elevated blood pressure (not hypertension) [facility] Phone Encounter On: 16-May-2015 15:29 Encounter Diagnosis: Sleep apnea End: 16-May-2015 15:31 [facility] Office Visit On: 27-Apr-2015 9:34 Encounter Reason: Cough - The last clinic visit was week(s) ago. No changes in management were made at the last visit. Symptoms include cough, wheezing and sore throat. The cough is described as wheezy and productive. Th End: 27-Apr-2015 16:50 ere is no known event that preceded symptom onset., [ADDITIONAL REASON] Bloody stools - The onset of the bloody stools has been acute and they have bee n occurring in an intermittent pattern for 2 weeks. The course has been recurrent. The bloody stools are characterized as blood mixed in stools. , [ADDITIONAL REASON] Follow up tests - Date: (04/12/15 labs). Encounter Diagnosis: Cough, persistent, Witnessed apneic spells, Vitamin D deficiency, unspecified, Costochondritis, Hypercholesteremia, Bloody stools [facility] Phone Encounter On: 12-Apr-2015 14:37 Encounter Diagnosis: Unspecified Diagnosis End: 12-Apr-2015 14:39 [facility] Office Visit On: 12-Apr-2015 7:38 Encounter Reason: Follow up for chronic medical issues - The patient feels well with minor complaints. Patient has been compliant with instructions. Current medication use: no side effects, compliant with dosing regimen End: 12-Apr-2015 12:58 and considered effective by patient. Patient sleeps 7 hours per night. Impact of disease: no overall impact. Nutrition: balanced diet. The medical issues the patient is following up for include All iden tified problems below, asthma, gastric reflux, high cholesterol, hypothyroid and other (Vit D, anxiety).Encounter Diagnosis: Hypothyroidism, unspecified, Non morbid obesity, unspecified obesity type, Vitamin D deficiency, unspecified, GERD (gastroesophageal reflux disease), Hypercholesteremia, Wheeze, Costochondritis, Cough, persistent, Witnessed apneic spells [facility] Office Visit On: 02-Dec-2014 8:33 Encounter Reason: Follow up tests - Date: (11.22.14)., [ADDITIONAL REASON] Follow up acute care visit - The patient feels the same. The medical issues the patient is following up for include other (breathing and heart). Encounter Diagnosis: End: 02-Dec-2014 9:36 Racing heart beat, ASTHMA, UNSPECIFIED, WITH ACUTE EXACERBATION (493.92), Medication side effect, Vitamin D deficiency, unspecified (268.9), Hypercholesteremia (272.0), GERD (gastroesophageal reflux disease), Witnessed apneic spells [facility] Office Visit On: 16-Nov-2014 13:22 Encounter Reason: Follow up for chronic medical issues - The patient feels well with minor complaints (still has the wheezing and congestion.), has decreased energy level and is sleeping poorly (snore and get up about 2x End: 22-Nov-2014 12:55 a night to go to the bathroom). Patient has been compliant with instructions. Current medication use: no side effects and compliant with dosing regimen. Patient sleeps 7 hours per night. Nutrition: bal anced diet and supplemental vitamins. The medical issues the patient is following up for include All identified problems below, high blood pressure and high cholesterol.Encounter Diagnosis: Gerd (530.81), Hypercholesteremia (272.0), Vitamin D deficiency, unspecified (268.9), Racing heart beat, Calf pain, right, UNSPECIFIED ACQUIRED HYPOTHYROIDISM (244.9), Chest tightness, PFO (patent foramen ovale), Wheeze [facility] Phone Encounter On: 30-Jun-2014 13:19 Encounter Diagnosis: Screening for malignant neoplasm of breast End: 30-Jun-2014 13:22 [facility] Office Visit On: 05-May-2014 13:51 Encounter Reason: Upper Respiratory Infection (URI) - The last clinic visit was 5 day(s) ago. No changes in management were made at the last visit. Symptoms include nasal congestion, runny nose, productive cough, wheezin End: 06-May-2014 10:32 g and general malaise, while symptoms do not include fever or chills. The symptoms occur constantly. The patient describes this as worsening. Associated symptoms do not include ear pain or ear plugging., [ADDITIONAL REASON] Rash - The last clinic visit was 1 day(s) ago. No changes in management were made at the last visit. Symptoms include skin redness, while symptoms do not include pain or pruritus. The skin rash is located on the right leg. Encounter Diagnosis: Body aches, Night sweats, PHARYNGITIS, NOS (462.), Fever, Skin lesion [facility] Office Visit On: 12-Mar-2014 12:09 Encounter Reason: Cough - The last clinic visit was week(s) ago. No changes in management were made at the last visit. Symptoms include cough, wheezing and sore throat. The cough is described as wheezy and productive. Th End: 12-Mar-2014 16:01 ere is no known event that preceded symptom onset.Encounter Diagnosis: Allergic rhinitis due to other allergen (477.8), COUGH, NOS (786.2), Bronchitis, FATIGUE [facility] Office Visit On: 26-Jan-2014 8:44 Encounter Diagnosis: FATIGUE, Hypoglycemia End: 26-Jan-2014 9:30 [facility] Office Visit On: 04-Jan-2014 8:00 Encounter Reason: Follow up tests - Date: (12.29.13).Encounter Diagnosis: UNSPECIFIED ACQUIRED HYPOTHYROIDISM (244.9), Vitamin D deficiency, unspecified (268.9), FATIGUE, Allergic rhinitis due to other allergen (477.8), Wheezing (786.07), End: 04-Jan-2014 8:39 Hypoglycemia [facility] Office Visit On: 29-Dec-2013 12:30 Encounter Reason: Follow up for chronic medical issues - The patient feels well with minor complaints (still has the wheezing and congestion.), has decreased energy level and is sleeping well. Patient has been compliant End: 01-Jan-2014 14:47 with instructions. Current medication use: no side effects and compliant with dosing regimen. Patient sleeps 7 hours per night. Nutrition: balanced diet and supplemental vitamins. The medical issues the patient is following up for include All identified problems below, high blood pressure and high cholesterol.Encounter Diagnosis: Hypercholesteremia (272.0), FATIGUE, Vitamin D deficiency, unspecified (268.9), UNSPECIFIED ACQUIRED HYPOTHYROIDISM (244.9), Abdominal pain [facility] Office Visit On: 18-Dec-2013 14:42 Encounter Reason: Chest Pain - Symptoms include chest pain and dyspnea. The pain is located in the substernal area. The pain radiates to the left arm. The patient describes the pain as heavy. Onset was sudden. Onset foll End: 18-Dec-2013 15:08 owed emotional excitement. The symptoms occur intermittently. The episodes occur daily. Note for Chest pain: SOB and travel last weekend Encounter Diagnosis: Chest pain (786.59), Personal history of PE (pulmonary embolism), Wheezing (786.07), SOB (786.05), Arm pain [facility] Phone Encounter On: 13-May-2013 11:07 Encounter Diagnosis: Breast cancer screening End: 13-May-2013 11:08 [facility] Office Visit On: 22-Apr-2013 8:55 Encounter Reason: Follow up for chronic medical issues - The patient feels well with minor complaints, has good energy level and is sleeping well. Patient has been compliant with instructions. Current medication use: no End: 22-Apr-2013 10:06 side effects and compliant with dosing regimen. Patient sleeps 7 hours per night. Nutrition: balanced diet and supplemental vitamins. The medical issues the patient is following up for include All ident ified problems below and hypothyroid. blood pressure range : and weight :.Encounter Diagnosis: Vitamin D deficiency, unspecified (268.9), UNSPECIFIED ACQUIRED HYPOTHYROIDISM (244.9), Hypercholesteremia (272.0), Gerd (530.81), Depressive Disorder (311.) [facility] Office Visit On: 30-May-2012 7:33 Encounter Reason: Follow up tests - Date: (05/19/12 labs).Encounter Diagnosis: Gerd (530.81), Hypertriglycerides (272.1), Hypercholesteremia (272.0), Vitamin D deficiency, unspecified (268.9), Otitis media (382.9), Obesity, unspecified (278.00), End: 30-May-2012 8:26 UNSPECIFIED ACQUIRED HYPOTHYROIDISM (244.9), Pulmonary embolism (415.19), History of basal cell cancer (V10.83) [facility] Office Visit On: 14-May-2012 15:26 Encounter Reason: Follow up for chronic medical issues - The patient feels well with minor complaints, has decreased energy level and is sleeping well. Patient has been compliant with instructions. Current medication use End: 14-May-2012 15:56 : no side effects and compliant with dosing regimen. Patient sleeps 8 hours per night. Nutrition: balanced diet and supplemental vitamins. The medical issues the patient is following up for include All identified problems below and high blood pressure. weight :.Encounter Diagnosis: Vitamin D deficiency, unspecified (268.9), Hypertriglycerides (272.1), Gerd (530.81), Depressive Disorder (311.), SOB (786.05), Fatigue (780.79), Chest pain (786.59), PNEUMONIA D/T STAPHYLOCCUS NEC (482.49), Wheezing (786.07) [facility] Lab Order On: 25-Apr-2012 16:00 Encounter Diagnosis: Vitamin D deficiency, unspecified (268.9), Hypertriglycerides (272.1), Fatigue (780.79) End: 25-Apr-2012 16:05 [facility] Office Visit On: 02-Apr-2012 15:23 Encounter Reason: Abdominal pain - The onset of the pain has been sudden and has been occurring in an intermittent pattern for 3 months. The course has been recurrent. The pain is described as a moderate sharp pain. The End: 02-Apr-2012 16:08 pain is described as being located in the left lower quadrant. The pain does not radiate. The symptoms are aggravated by motion. The symptoms have no relieving factors. Note for Pain: wonders if it is her mesh in there or another hernia Encounter Diagnosis: Gerd (530.81), Abdominal Pain,LLQ (789.04), Abdominal Pain,Generalized (789.07) [facility] Office Visit On: 18-Jan-2012 10:31 Encounter Reason: Chest pain - The pain has been occurring for 3 weeks.Encounter Diagnosis: Hoarse voice quality (784.42), Chest pain (786.59), COUGH, NOS (786.2), SOB (786.05), Depressive Disorder (311.) End: 18-Jan-2012 11:26 [facility] Annotation/Addendum On: 04-Dec-2011 16:33 Encounter Diagnosis: Unspecified Diagnosis End: 04-Dec-2011 16:35 [facility] Internal [facility] Phone Encounter On: 04-Dec-2011 11:51 [facility] End: 04-Dec-2011 11:53 Office Visit On: 03-Dec-2011 16:36 Encounter Reason: Cough - The onset of the cough has been sudden. The cough is characterized as productive of mucoid sputum. The amount of sputum produced is less than a half a cup per day. The cough occurs all the time End: 03-Dec-2011 17:02 . The symptoms are aggravated by supine posture. The symptoms have been associated with sore throat and wheezing, while the symptoms have not been associated with fever, hoarseness, runny nose or heartb urn. the color of the sputum is greenish and yellowish. Note for Cough : this week Treating cold for 2 week, using mucinex, nyquil Encounter Diagnosis: Acute sinusitis, unspecified (461.9), COUGH, NOS (786.2), Wheezing (786.07) [facility] Office Visit On: 12-Nov-2011 13:21 Encounter Reason: Skin Problems - The onset of the problems has been sudden and they have been occurring in a persistent pattern for 1 week. The course has been increasing. The problem is characterized as a rash, itching End: 12-Nov-2011 17:40 and a change in skin color. Lesions are described as red, raised above the skin, flat and grouped in crops. The spots were first seen on the upper extremity. It spread to the face, the neck, the trunk and the upper extremity. There has been associated itching, while there has been no pain.Encounter Diagnosis: Rash (782.1) [facility] Office Visit On: 05-Jul-2011 7:23 Encounter Diagnosis: Pulmonary embolism (415.19) End: 05-Jul-2011 9:37 [facility] Phone Encounter On: 06-Jun-2011 11:46 [facility] End: 06-Jun-2011 11:51 Lab Order On: 31-May-2011 10:02 Encounter Diagnosis: Pulmonary embolism (415.19) End: 31-May-2011 10:04 [facility] Annotation/Addendum On: 31-May-2011 8:39 Encounter Diagnosis: Pulmonary embolism (415.19) End: 31-May-2011 8:42 [facility] Office Visit On: 09-Apr-2011 16:11 Encounter Reason: Follow up, Laboratory Test Results - Date: (04.05.11). Current symptoms/reason for visit include/s Symptoms include dysuria. There is a family history of breast cancer (mom, aunt ) and cardiovascular dise End: 09-Apr-2011 16:46 ase (M. uncle ) , while there is no family history of cystic fibrosis, Down's syndrome, mental retardation or myocardial infarction before age 55. Past medical history includes elevated triglycerides, g astroesophageal reflux disease and other (vertigo )., [ADDITIONAL REASON] Follow up for chronic medical issues - The patient feels well with minor complai nts, has decreased energy level and is sleeping well. Patient has been compliant with instructions. Current medication use: no side effects and compliant with dosing regimen. Patient sleeps 8 hours per night. Nutrition: balanced diet and supplemental vitamins. The medical issues the patient is following up for include All identified problems below and high blood pressure. weight :. Encounter Diagnosis: Hot Flashes (782.62), Pulmonary embolism (415.19), Depressive Disorder (311.), SOB (786.05), Chest pain (786.59), Staphylococcal septicemia, unspecified (038.10), Bacterial pneumonia, unspecified (482.9), Fever, unspecified (780.60), Wheezing (786.07), Benign paroxysmal positional vertigo (386.11), UNSPECIFIED ACQUIRED HYPOTHYROIDISM (244.9), Elevated Blood Pressure without diagnosis of Hypertension (796.2), Poison juan (692.6), Hypercholesteremia (272.0), Vitamin B12 deficiency (non anemic) (266.2) , Vitamin D deficiency, unspecified (268.9), Bruising/Echymosis (459.89) [facility] Phone Encounter On: 05-Apr-2011 14:46 [facility] End: 05-Apr-2011 14:47 Office Visit On: 04-Apr-2011 14:07 Encounter Reason: Chest Pain - Symptoms include chest pain (pressure) and dyspnea. The pain is located in the right anterior chest (pressure and SOB). Onset was 1 day(s) ago (SOB ongoing for last week or so and thought i End: 04-Apr-2011 14:58 t was cause I was sick. Chest pressure lasted for about an hour or 2 this am.).Encounter Diagnosis: Chest pain (786.59), SOB (786.05), Pulmonary embolism (415.19), Depressive Disorder (311.) [facility] Phone Encounter On: 12-Feb-2011 14:18 Encounter Diagnosis: Unspecified Diagnosis End: 12-Feb-2011 14:21 [facility] Office Visit On: 07-Feb-2011 16:21 Encounter Reason: Follow up acute care visit - The patient does not feel well. Patient has been compliant with instructions. Current medication use: no side effects and compliant with dosing regimen. Patient sleeps 8 harvinder End: 07-Feb-2011 16:51 rs per night. Nutrition: inappropriate diet.Encounter Diagnosis: Staphylococcal septicemia, unspecified (038.10), Fever, unspecified (780.60) [facility] Office Visit On: 02-Feb-2011 13:03 Encounter Reason: Ear Discharge - The history today is reported by the patient. The last clinic visit was 1 day(s) ago. No changes in management were made at the last visit. Symptoms include ear pain. Symptoms are locate End: 02-Feb-2011 14:34 d in both ears. There is no known event that preceded symptom onset., [ADDITIONAL REASON] Nasal Congestion - The onset of the congestion has been sudden and has been occu rring in a persistent pattern for days. The course has been constant. The congestion is described as severe. The congestion is located in both sides of the neck. There are no relieving factors. Encounter Diagnosis: Otalgia, unspecified (388.70), Bacterial pneumonia, unspecified (482.9), Pulmonary embolism (415.19), Otitis media (382.9) [facility] Annotation/Addendum On: 02-Feb-2011 12:30 Encounter Diagnosis: PNEUMONIA D/T STAPHYLOCCUS NEC (482.49) End: 02-Feb-2011 12:37 [facility] Office Visit On: 29-Jan-2011 13:55 Encounter Reason: Cough - The onset of the cough has been sudden. The cough is characterized as productive of mucoid sputum. The symptoms have been associated with fever (has been since off HRT?), runny nose (clear) End: 29-Jan-2011 14:36 and wheezing, while the symptoms have not been associated with edema, hemoptysis or sore throat.Encounter Diagnosis: COUGH, NOS (786.2), Wheezing (786.07), Allergic rhinitis due to other allergen (477.8) [facility] Office Visit On: 23-Jan-2011 15:14 Encounter Reason: Follow up ER - Reason for hospitalization note: (hematoma on the left side). Patient has been compliant with instructions. Current medication use: no side effects and compliant with dosing regimen. The End: 23-Jan-2011 15:33 patient does not feel well, has decreased energy level and is sleeping well. Patient sleeps 8 hours per night. Nutrition: balanced diet.Encounter Diagnosis: Pulmonary embolism (415.19), Bruising/Echymosis (459.89) [facility] Phone Encounter On: 17-Jan-2011 13:24 [facility] End: 17-Jan-2011 13:25 Phone Encounter On: 12-Jan-2011 13:06 [facility] End: 12-Jan-2011 13:13 Office Visit On: 11-Jan-2011 12:14 [facility] End: 11-Jan-2011 12:25 Office Visit On: 11-Jan-2011 11:26 Encounter Reason: Follow up hospital - Reason for ER visit: note: (pe). The patient feels well with minor complaints, has decreased energy level and is sleeping well. Patient has been compliant with instructions. Current End: 11-Jan-2011 12:10 medication use: no side effects and compliant with dosing regimen. Patient sleeps 7 hours per night.Encounter Diagnosis: MYOCARDIAL INFARCTION, NOS (410.90), Pulmonary embolism (415.19) [facility] Office Visit On: 05-Jan-2011 14:15 Encounter Reason: Follow up Meds - The patient feels well with minor complaints and is sleeping well. Patient has been compliant with instructions. Current medication use: no side effects and compliant with dosing regime End: 05-Jan-2011 15:16 n. Patient sleeps 6 hours per night. Nutrition: balanced diet., [ADDITIONAL REASON] Follow up tests - Date: (11/24/10 labs). Encounter Diagnosis: Anxiety (300.00), Hypercholesteremia (272.0), Fatigue (780.79), Vitamin D deficiency, unspecified (268.9), Vitamin B12 deficiency (non anemic) (266.2), Need for prophylactic vaccination and inoculation against influenza (V04.81) [facility] Office Visit On: 24-Nov-2010 8:36 Encounter Reason: Follow up for chronic medical issues - The patient feels well with minor complaints, has decreased energy level and is sleeping well. Patient has been compliant with instructions. Current medication use End: 24-Nov-2010 10:17 : no side effects and compliant with dosing regimen. Patient sleeps 8 hours per night. Nutrition: balanced diet and supplemental vitamins. The medical issues the patient is following up for include All identified problems below and high blood pressure. weight :.Encounter Diagnosis: Asplenia syndrome (759.0), Hypercholesteremia (272.0), Gerd (530.81), Fatigue (780.79), Depressive Disorder (311.) [facility] Office Visit On: 05-Oct-2010 9:51 Encounter Reason: Follow up for chronic medical issues - The patient feels well with minor complaints, has good energy level and is sleeping well. Patient has been compliant with instructions. Current medication use: no End: 05-Oct-2010 10:35 side effects and compliant with dosing regimen. Patient sleeps 7 hours per night. Nutrition: balanced diet and supplemental vitamins. The medical issues the patient is following up for include All ident ified problems below, depression and hypothyroid. weight :.Encounter Diagnosis: Gerd (530.81), UNSPECIFIED ACQUIRED HYPOTHYROIDISM (244.9), Obesity, unspecified (278.00), Hypercholesteremia (272.0), Asplenia syndrome (759.0), Symptomatic menopausal or female climacteric states (627.2), Elevated Blood Pressure without diagnosis of Hypertension (796.2) [facility] Office Visit On: 10-Jul-2010 15:44 Encounter Reason: Rash - The onset of the rash has been sudden and has been occurring in a persistent pattern for 1 week. The course has been increasing. The rash is characterized as red, weeping, raised above the skin a End: 10-Jul-2010 16:49 nd grouped in crops. The rash was first seen on the upper extremity. It spread to the neck and the trunk. There has been associated itching.Encounter Diagnosis: Poison juan (692.6) [facility] Office Visit On: 15-Jun-2010 6:52 Encounter Reason: Follow up for chronic medical issues - The patient feels well with minor complaints, has decreased energy level and is sleeping well. Patient has been compliant with instructions. Current medication use End: 15-Jun-2010 15:10 : experiencing side effects and compliant with dosing regimen. Patient sleeps 6 hours per night. Nutrition: balanced diet and supplemental vitamins. The medical issues the patient is following up for in clude All identified problems below, gastric reflux and high blood pressure. weight :.Encounter Diagnosis: Obesity, unspecified (278.00), Hypercholesteremia (272.0), Depressive Disorder (311.), UNSPECIFIED ACQUIRED HYPOTHYROIDISM (244.9), Gerd (530.81), Dizziness(780.4), SYMPTOM, ABNORMAL INVOLUNTARY MOVEMENT NEC (781.0) [facility] Office Visit On: 22-May-2010 15:03 Encounter Reason: Headache - The onset of the headache has been gradual and has been occurring in an intermittent pattern for 2 weeks. The course has been recurrent. The headache is characterized as moderate, a pressure End: 22-May-2010 22:04 sensation and deep pain. The headache is experienced any time of the day (no diurnal variation). The headache is described as being located in the frontal area (and behind eyes). The symptoms are aggrav ated by noise, bright light and reading. The symptoms have been associated with migraine in the past, nausea, neck pain, neck stiffness, sinusitis in the past and vertigo, while the symptoms have not be en associated with blurring of vision, ear pain, eye pain, fever, flashing lights, head trauma, nasal discharge/stuffy nose, sore throat or vomiting. Note for Headache: dont feel like her typical migr carmen- has had dizziness for a while- but seems to be getting worse- when she stands she feels like she gets foggy hearing- - headache more behind eyes-- had eye exam and was ok- the headache comes and goes- wakes up with in am- nothing specific relieves it- excedrin normallly relieves migraines this doesnt help this headache- no vision change- has noticed weakness in left arm lateleywith litle numbne ss periodically- comes and goes- can wake up with numb- but different-no new meds or change in meds- she has been trying to eat better and exercise and drink more water but hasnt changed itEncounter Diagnosis: Dizziness(780.4), Headache (784.0) [facility] Office Visit On: 22-Mar-2010 14:26 Encounter Reason: Sore throat - The onset of the sore throat has been sudden and has been occurring in an intermittent pattern for 1 week. The course has been worsening. The symptoms have been associated with change in v End: 22-Mar-2010 14:50 oice, chills, difficulty in swallowing, ear pain, fever, post-nasal drip, runny nose and sinus pain, while the symptoms have not been associated with cough. 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 Patient has been compliant with instructions. Current medication use: experiencing side effects (occasional dizziness with Prempro), compliant with dosing regimen and considered eff ective by patient. Patient sleeps 7 hours per night. Impact of disease: emotional impact-moderate. Nutrition: balanced diet and supplemental vitamins. The medical issues the patient is following up for include All identified problems below, depression, gastric reflux and high cholesterol.Encounter Diagnosis: Symptomatic menopausal or female climacteric states (627.2), Depressive Disorder (311.), UNSPECIFIED ACQUIRED HYPOTHYROIDISM (244.9), Asplenia syndrome (759.0), Hypercholesteremia (272.0), Obesity, unspecified (278.00) [facility] Office Visit On: 22-Nov-2009 15:01 Encounter Reason: Rash - The onset of the rash has been sudden and has been occurring in a persistent pattern for 2 days. The course has been increasing. The rash is characterized as red ,weeping and raised above the ski End: 22-Nov-2009 21:33 n. The rash was first seen on the neck. It spread to the trunk (chest) ,the upper extremity and the lower extremity. There has been associated itching, while there has been no chills ,fever ,loss of sen sation or pain. Note for Rash: got better with shot and higher dose pred then as tapered down came back and spreading again onfaceEncounter Diagnosis: Poison juan (692.6) [facility] Office Visit On: 01-Nov-2009 10:33 Encounter Reason: Rash - The onset of the rash has been acute and has been occurring in a persistent pattern for 2 days. The course has been increasing. The rash is characterized as red and raised above the skin. The david End: 01-Nov-2009 12:18 h was first seen on the trunk. It spread to the neck ,the back and the lower extremity. There has been associated itching. Encounter Diagnosis: Poison juan (692.6) [facility] Office Visit On: 14-Oct-2009 8:53 Encounter Reason: Follow up Meds - The patient feels well with minor complaints ,has good energy level and is sleeping well. Patient has been compliant with instructions. Current medication use: no side effects and compl End: 14-Oct-2009 10:00 iant with dosing regimen. Patient sleeps 7 hours per night. Nutrition: balanced diet. Encounter Diagnosis: Depressive Disorder (311.) [facility] Office Visit On: 14-Sep-2009 8:55 Encounter Reason: Follow up for chronic medical issues - The patient does not feel well ,has decreased energy level and is sleeping well. Patient has been compliant with instructions. Current medication use: no side effe End: 14-Sep-2009 11:51 cts and compliant with dosing regimen. Patient sleeps 7 hours per night. Nutrition: balanced diet and supplemental vitamins. The medical issues the patient is following up for include All identified pro blems below ,depression ,gastric reflux and high cholesterol. Encounter Diagnosis: Hypercholesteremia (272.0), UNSPECIFIED ACQUIRED HYPOTHYROIDISM (244.9), Acute sinusitis, unspecified (461.9), Obesity, unspecified (278.00), Depressive Disorder (311.), Gerd (530.81), Family history of diabetes mellitus (V18.0) [facility] Office Visit On: 29-Jul-2009 7:19 Encounter Reason: Follow up for chronic medical issues - The patient feels well with minor complaints (fatigue). Patient has been compliant with instructions. Current medication use: no side effects ,compliant with dosin End: 29-Jul-2009 10:39 g regimen and considered effective by patient. Patient sleeps 7 hours per night. Nutrition: balanced diet and supplemental vitamins. The medical issues the patient is following up for include All identi fied problems below ,gastric reflux and high cholesterol. Encounter Diagnosis: UNSPECIFIED ACQUIRED HYPOTHYROIDISM (244.9), Hypercholesteremia (272.0), Abnormal Urine (791.9), Asplenia syndrome (759.0), Gerd (530.81), Obesity, unspecified (278.00), CHILLS AND FEVER (780.6), COUGH, NOS (786.2), PHARYNGITIS, NOS (462.) [facility] Office Visit On: 15-Feb-2009 11:55 Encounter Reason: Flu like symptoms - The onset of the flu like symptoms has been acute and they have been occurring in a persistent pattern for 5 days. The course has been constant. The flu like symptoms are described as severe. End: 15-Feb-2009 12:21 Encounter Diagnosis: CHILLS AND FEVER (780.6), PHARYNGITIS, NOS (462.), Abnormal Urine (791.9), COUGH, NOS (786.2), ASPLENIA SYNDROME (759.0) [facility] Office Visit On: 21-Jan-2009 14:54 Encounter Reason: Follow up, Laboratory Test Results - Date: (12/16/08). Current symptoms/reason for visit include/s Symptoms include dysuria. There is a family history of breast cancer (mom, aunt ) and cardiovascular di End: 21-Jan-2009 15:39 sease (M. uncle ) , while there is no family history of cystic fibrosis ,Down's syndrome ,mental retardation or myocardial infarction before age 55. Past medical history includes elevated triglycerides ,gastroesophageal reflux disease and other (vertigo ). Encounter Diagnosis: Dysuria (788.1), Hypercholesteremia (272.0), UNSPECIFIED ACQUIRED HYPOTHYROIDISM (244.9) [facility] Office Visit On: 10-Dec-2008 8:11 Encounter Reason: Follow up for chronic medical issues - The patient feels well with minor complaints ,has decreased energy level and is sleeping well. Patient has been compliant with instructions. Current medication use End: 10-Dec-2008 9:30 : no side effects and compliant with dosing regimen. Patient sleeps 8 hours per night. Nutrition: balanced diet and supplemental vitamins. The medical issues the patient is following up for include All identified problems below ,gastric reflux and high cholesterol. Encounter Diagnosis: MIGRAINE, UNSPECIFIED, WITHOUT MENTION OF INTRACTABLE MIGRAINE (346.90), Gerd (530.81), UNSPECIFIED ACQUIRED HYPOTHYROIDISM (244.9), Symptomatic menopausal or female climacteric states (627.2), Tinea Cruris (110.3) [facility] Office Visit On: 09-Aug-2008 14:11 Encounter Reason: Rash - The onset of the rash has been sudden and has been occurring in a persistent pattern for 5 days. The course has been increasing. The rash is characterized as red and raised above the skin. The ra End: 09-Aug-2008 15:01 sh was first seen on the neck and the upper extremity. It spread to the face and the lower extremity. There has been associated itching and pain, while there has been no chills ,fever or loss of sensati on. Note for Rash: poision juan- she gets - has in back of propertyEncounter Diagnosis: poison juan [facility] Office Visit On: 21-Nov-2007 14:43 Encounter Diagnosis: LACERATION, NOS End: 21-Nov-2007 15:22 [facility] Office Visit On: 14-Nov-2007 9:02 Encounter Reason: Follow up ER - Reason for hospitalization note: (fell adn got stitches they also gave her tetnus). , [ADDITIONAL REASON] Vaginal discharge - The patient denies the use of hormone replacement therapy. Encounter Diagnosis: End: 14-Nov-2007 9:29 Vaginal Dryness (623.8), Yeast Infection: Candidiasis of Unspecified Site (112.9), Ventral Hernia, No Obstruction or Gangrene (553.29), LACERATION, NOS [facility] Office Visit On: 10-Nov-2007 8:33 Encounter Reason: Abdominal pain - The onset of the pain has been gradual and has been occurring in an intermittent pattern for weeks. The course has been recurrent. The pain is described as a moderate stabbing. The pain End: 10-Nov-2007 9:16 is described as being located in the epigastrium. The pain does not radiate. The symptoms are aggravated by standing (or stretched out straight ) and empty stomach. The symptoms are relieved by eating. The symptoms have been associated with bloating ,dark urine ,diarrhea ,heartburn and nausea, while the symptoms have not been associated with abdominal distention ,amenorrhea ,anorexia ,bloody stools , bone pain ,bulky stools ,chest pain ,constipation ,dysuria ,fever ,hematemesis ,hematuria ,jaundice ,melena ,passing worms ,pica ,use of alcohol ,vaginal bleeding ,vaginal discharge ,vomiting or weight loss. Previous evaluations have included CT scan. Encounter Diagnosis: Abdominal Pain,Generalized (789.07), Abnormal CT(793.9) [facility] Office Visit On: 29-Oct-2007 15:50 Encounter Reason: Abdominal pain - The onset of the pain has been sudden and has been occurring in an intermittent pattern for 2 weeks (has been bad). The course has been constant. The pain is described as a moderate sta End: 29-Oct-2007 16:30 bbing and dull ache. The pain is described as being located in the right lower quadrant. The pain does not radiate. The symptoms are aggravated by standing and walking. The symptoms have no relieving fa ctors. Note for Abdominal pain: did help some friends move and she siad that she has had heartburn and bloating above where the pain is.Encounter Diagnosis: Abdominal Pain,RLQ (789.03), Pelvic pain (625.9), Gerd (530.81), Hypertriglycerides (272.1) [facility] Historical Summary On: 18-Apr-2007 10:57 [facility] End: 18-Apr-2007 11:10 Office Visit On: 04-Feb-2007 15:33 Encounter Reason: Skin changes - The onset of the skin changes has been sudden and they have been occurring in a persistent pattern for 1 weeks. The course has been constant. The skin changes are described as moderate. N End: 04-Feb-2007 16:18 ote for Skin changes: Pt has had spleenectomy (1978) 2' Hodgkins lymphoma. (27 yrs)Pt had fever 3 wks ago along with symptoms of sore throat. Was put on Augmentin at that time. Developed Rt lower leg swelling was placed on cipro Jan 14,15,16. The swelling of rt leg and pain swelling continued. Pt returned today. Encounter Diagnosis: Cellulitis and abscess of leg, except foot (682.6), Erythema nodosum (695.2), Yeast Infection: Candidiasis of Unspecified Site (112.9) [facility] Office Visit On: 27-Jan-2007 12:32 Encounter Reason: Skin changes - The onset of the skin changes has been sudden and they have been occurring in a persistent pattern for 1 weeks. The course has been constant. The skin changes are described as moderate. N End: 27-Jan-2007 12:54 ote for Skin changes: Pt has had spleenectomy (1978) 2' Hodgkins lymphoma. (27 yrs)Pt had fever 3 wks ago along with symptoms of sore throat. Was put on Augmentin at that time. Developed Rt lower leg swelling was placed on cipro Jan 14,15,16. The swelling of rt leg and pain swelling continued. Pt returned today. Encounter Diagnosis: Cellulitis and abscess of leg, except foot (682.6), Erythema nodosum (695.2), Pain in limb (729.5), Edema (782.3) [facility] Office Visit On: 22-Jan-2007 8:09 Encounter Diagnosis: Cellulitis and abscess of leg, except foot (682.6), Erythema nodosum (695.2) End: 22-Jan-2007 9:38 [facility] Visit On: 21-Jan-2007 7:45 Encounter Diagnosis: Cellulitis and abscess of leg, except foot (682.6), Pain in limb (729.5), Edema (782.3) End: 21-Jan-2007 8:55 [facility] Visit On: 20-Jan-2007 16:38 Encounter Reason: Skin changes - The onset of the skin changes has been sudden and they have been occurring in a persistent pattern for 1 weeks. The course has been constant. The skin changes are described as moderate. N End: 20-Jan-2007 17:49 ote for Skin changes: Pt has had spleenectomy (1978) 2' Hodgkins lymphoma. (27 yrs)Pt had fever 3 wks ago along with symptoms of sore throat. Was put on Augmentin at that time. Developed Rt lower leg swelling was placed on cipro Jan 15,,16. The swelling of rt leg and pain swelling continued. Pt returned today. Encounter Diagnosis: Cellulitis and abscess of leg, except foot (682.6), Edema (782.3), Pain in limb (729.5), spleenectomy [facility] Office Visit On: 15-Jan-2007 8:32 Encounter Reason: Skin changes - The onset of the skin changes has been sudden and they have been occurring in a persistent pattern for 4 days. The course has been constant. The skin changes are described as moderate. Encounter Diagnosis: End: 15-Jan-2007 8:56 Erythema nodosum (695.2), Dysuria (788.1) [facility] Office Visit On: 23-Dec-2006 11:38 Encounter Reason: Fever - The onset of the fever has been sudden and has been occurring in a persistent pattern for 5 days. The course has been recurrent. The patient has a temperature of up to 100 F. The symptoms have b End: 23-Dec-2006 12:12 een associated with cough ,fatigue ,headache and sore throat, while the symptoms have not been associated with diarrhea or ear pain. Encounter Diagnosis: Neck pain (723.1), Acute sinusitis, unspecified (461.9), FEVER (780.6), Phlebitis and thrombophlebitis of superficial vessels of lower extremities (451.0) [facility] Office Visit On: 13-Dec-2006 13:45 Encounter Reason: Fatigue - The onset of the fatigue has been sudden and has been occurring in a persistent pattern for 2 weeks. The course has been constant. The fatigue occurs towards the end of the day. The symptoms h End: 13-Dec-2006 14:58 ave been associated with headache, while the symptoms have not been associated with chills. , [ADDITIONAL REASON] Dizziness/ - The onset of the dizziness/ has been sudden and has been occurring in a persistent pattern for 2 weeks. The course has been constant. The dizziness/ is characterized as lightheadedness. The dizziness/ is precipitated by position change. The symptoms have been associated with headache. Encounter Diagnosis: Neck pain (723.1), Headache (784.0), Benign paroxysmal positional vertigo (386.11) [facility] Office Visit On: 03-Jul-2006 15:35 Encounter Reason: Rash - The onset of the rash has been gradual and has been occurring in a persistent pattern for 2 weeks. The course has been increasing. The rash is characterized as red ,crusty ,weeping ,pustular and End: 03-Jul-2006 19:56 raised above the skin. The rash was first seen on the trunk. It spread to the trunk. There has been associated itching. Note for Rash: sore throat 2 weeks ago, jaw pain. Had a fever last week. 99 temp last week. 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
--- OUTSIDE RECORDS SUMMARY | 2018-05-28 06:38 | XMS RPT_ITS | Continuity of Care Document ---
:1970 Author Organization [facility] Address [address] [facility] [address] [place] [address] Phone Care Team Providers Name Role Phone Sho Lozano DO Unavailable Brooklynn RODRIGUES, Dr. Jacinto Corrales Unavailable MD Chandler, Stan Unavailable Raymundo Ordonez MD Unavailable Christian LopezShabnamSharri Lomax Unavailable Unavailable TOMY TianN Rebekah Unavailable Unavailable Vivi Goodwin Unavailable Unavailable Long Carmleina MOORE Unavailable Unavailable Cassie Saul Unavailable Unavailable [...] for 30 days Quantity: 30 {Tablet} Refills: 2 Ordered:13-Nov-2017 Adelfo Lozano DO, DO, Kathleen Start : 13-Nov-2017 Active MetFORMIN HCl ER 500 MG Oral Tablet Extended Release 24 Hour 1 (one) Tablet qd for 30 days Quantity: 30 {Tablet} Refills: 3 Ordered:16-Jul-2017 Adelfo Lozano DO, DO, Kathleen Start : 16-Jul-2017 Active Montelukast Sodium 10 MG Oral Tablet 1 qd (10 MG) Active MULTIVITAMIN (PO Tab) 1 Daily for 0 days Refills: 0 Ordered:29-Jul-2009 Mast AMADA, Palak NASONEX, 50MCG/ACT (Nasal Suspension) 1 spray [...] days Quantity: 1 {Box} Refills: 4 Ordered:01-Jul-2015 Blake DAMONAdelfo DO, Kathleen Start : 01-Jul-2015 Active Synthroid 125 MCG Oral Tablet 1 (one) Tablet qd for 0 days Quantity: 30 {Tablet} Refills: 7 Ordered:13-May-2017 Blake DAMONAdelfo DO Sho Start : 13-May-2017 Active VITAMIN D3, 84880BYQP (Oral Capsule) 1 Capsule 2 x week [...] 14 {QS} Refills: 0 Ordered:27-Sep-2015 Clifford DIAS Elida Tyler Start : 27-Sep-2015 End : 04-Oct-2015 Inactive [...] : 22-Mar-2010 End : 22-May-2010 Inactive NYSTATIN, [id number]/GM (External Powder) Powder TID/PRN to affected area [...] days Quantity: 30 {Tablet} Refills: 0 Ordered:09-Oct-2017 Cassie Saul Start : 02-Oct-2017 End : 09-Oct-2017 Discontinued PREDNISONE, 20MG (Oral Tablet) tad Tablet uad for 0 days Refills: 0 Ordered:22-Nov-2009 Mast Trish YBARRA Start : 01-Nov-2009 End : 09-Feb-2010 Discontinued [...] Lower Extremity Result: Comments: See Note; NOTES: [facility] Cardiovascular Services [address] [place] [address] Venous Duplex US, Unilateral 12/04/17 1529 MR#: [id number] Acct: [id number] Name: MARIAELENA ALMEIDA Rep #: [id number] : 1970 47 From: Gerard Ford MD Attending Dr: Eric John MD Status: REG CLI Ordering Dr: Eric John MD Date: 12/04/17 Location: [facility] Sex: F C Admitted : Reason For [...] Physician: Sho Lozano Performed By: Yuliya Washington, IRVIN, RVT 12/06/172124 Date Gerard Ford MD CC: Sho Lozano DO; Eric John MD Date Dictated: 12/04/17 1529 Date Transcri bed: 12/06/172124 Vegetable Grower: Signed 11-Nov-2017 Discharge Instruction Result: Comments: See Note; NOTES: [facility] Medical Records Department [address] [place] [address] Discharge Instruction 11/11/172211 MR#: [id number] Acct: [id number] Name: MARIAELENA POTTER Rep #: [id number] : 1970 47 From: Indio Chisholm DO PCP: Sho Lozano DO Status: REG ER ED Disposition - Plan for ED Patient: Chief Complaint: Lower Extremity Injury Instructio ns: ED Contusion Lower Ext, ED Contusion Hand Prescriptions: Oxycodone HCl/Acetaminophen [Percocet 5/325] 1 tab PO Q6H PRN PRN 3 Days #12 tab PRN Reason: Pain Referrals: Sho Lozano DO [Primary Car e Provider] - Eric John MD [STAFF PHYSICIAN] - 5-7 Days What to do if you have Problems For any increased pain, shortness of breath, bleeding, nausea or vomiting, chest pain, or any unexpected problems, contact your Primary Care Provider. Call [facility] ([phone]) or report to the closest Emergency Room. Call 911 if necessary. 11/11/172212 <Electronically signed by Indio Chisholm DO> Date Indio Chisholm DO Cosigner Signature (If Indicated): Date CC: Sho Lozano DO 11-Nov-2017 Emergency Department Summary Result: Comments: See Note; NOTES: [facility] Medical Records Department [address] [place] [address] Emergency Department Summary 11/11/172208 MR#: [id number] Acct: [id number] Name: MARIAELENA FORMAN Rep #: [id number] : 1970 47 From: Indio Chisholm DO [...] contusion] This note w as generated with [employer] dictation software. It may contain incorrect words, spelling, and punctuation that were not noted in review of the chart prior to signing ED Disposition - Plan for ED Patient : Chief Complaint: Lower Extremity Injury Referrals: Sho Lozano DO [Primary Care Provider] - What to do if you have Problems For any increased pain, shortness of breath, bleeding, nausea or vo miting, chest pain, or any unexpected problems, contact your Primary Care Provider. Call [facility] ([phone]) or report to the closest Emergency Room. Call 911 if necessary. 11/11/17 2211 & amp;#60;Electronically signed by Indio Chisholm DO> Date Indio Chisholm DO Cosigner Signature (If Indicated): Date CC: Sho Lozano DO 11-Nov-2017 Knee 3 Views Result: Comments: See Note; NOTES: [facility] Imaging Services [address] [place] [address] Knee 3 Views MR#: [id number] Acct: [id number] Name: MARIAELENA FORMAN Saray Rep #: [id number] : 1970 F 47 From: Olena Gilman MD PCP: hSo Lozano DO Status: REG ER Study: Knee 3 Views Date of Exam: 11/11/17 Exam# [id number] Ordering Dr: Indio Chisholm DO STUDY: X-RAY [...] CC: Sho Lozano DO; Indio Chisholm DO Vegetable Grower: Signed 11-Nov-2017 Hand Min 3 Views Result: Comments: See Note; NOTES: [facility] Imaging Services [address] [place] [address] Hand Min 3 Views MR#: [id number] Acct: [id number] Name: MARIAELENA FORMAN Rep #: [id number] : 1970 F 47 From: Olena Gilman MD PCP: Sho Lozano DO Status: REG ER Study: Hand Min 3 Views Date of Exam: 11/11/17 Exam# [id number] Ordering Dr: Indio Chisholm DO STUDY: X-RAY - LE FT HAND REASON FOR EXAM: Female, 47 years old. Fall. Pain around second MCP joint. TECHNIQUE: 3 view(s) of the hand. COMPARISON: None. FINDINGS: Slight limitation due to ring on the fourth digit. There is no fracture or dislocation. Joint spaces are well-maintained. Soft tissues and bony structures are unremarkable. ORDER # : [id number] RAD/Hand Min 3 Views IMPRESSION: Normal x-ray examination of the hand. Electronically Signed: Olena Gilman MD at 21:55 EDT Tel , Service support , F ax [phone] CC: Sho Lozano DO; Indio Chisholm DO Vegetable Grower: Signed 11-Nov-2017 Knee 3 Views Result: Comments: See Note; NOTES: [facility] Imaging Services [address] [place] [address] Knee 3 Views MR#: [id number] Acct: [id number] Name: MARIAELENA FORMAN Rep #: [id number] : 1970 F 47 From: Olena Gilman MD PCP: hSo Lozano DO Status: REG Study: Knee 3 Views Date of Exam: 11/11/17 Exam# [id number] Ordering Dr: Indio Chisholm DO STUDY: X-RAY [...] CC: Sho Lozano DO; Indio Chisholm DO Vegetable Grower: Signed 31-Oct-2017 Operative Report Result: Comments: See Note; NOTES: [facility] Medical Records Department [address] [place] [address] Operative Report 10/31/17 1552 MR#: [id number] Acct: [id number] Name: MARIAELENA FORMAN Rep #: [id number] : 1970 47 From: Cathleen Fields MD PCP: Sho Lozano DO Status: REG [facility] [place] Location: [place] [address] Report of Operation Date of Procedure: 10/31/17 [...] Normal-appearing cervix, vag isha and endocervical canal. job estimator: Shabnam Cuadra MS3 Type of Anesthesia:: General [...] Discharge Instruction Result: Comments: See Note; NOTES: [facility] Medical Records Department [address] [place] [address] Instructions for Home/Discharge Instructions 10/31/17 1551 MR#: [id number] Acct: [id number] Name: MARIAELENA FORMAN Rep #: [id number] : 1970 47 From: Cathleen Fields MD PCP: Sho Lozano DO Status: REG [facility] Discharge Diet: No Restrictions Discharge Activity: Return [...] w Up With: Cathleen Fields MD - [phone] When: Dr. Fields's office 2-4 weeks or as needed 10/31/17 0562 <Electronically signed by Cathleen Fields MD> Date Cathleen Fields MD CC: Sho Lozano DO 02-Oct-2017 Venous Duplex Lower Extremity Result: Comments: See Note; NOTES: [facility] Cardiovascular Services [address] [place] [address] Venous Duplex US - Panda Extrem 10/02/17 1307 MR#: [id number] Acct: [id number] Name: MARIAELENA FORMAN Rep #: [id number] : 1970 47 From: Gerard Ford MD [...] Physician: Sho Lozano Performed By: Lucy Stone, IRVIN, RVT 10/02/17 1 508 Date Gerard Ford MD CC: Sho Lozano DO Date Dictated: 10/02/17 1307 Date Transcribed: 10/02/17 1508 Vegetable Grower: Signed 02-Oct-2017 Chest PA and Lateral Result: Comments: See Note; NOTES: [facility] Imaging Services [address] [place] [address] Chest PA and Lateral MR#: [id number] Acct: [id number] Name: MARIAELENA FORMAN Rep #: [id number] : 1970 F 47 From: Arthur Sandhu MD PCP: Sho Lozano DO Status: REG CLI Study: Chest PA and Lateral Date of Exam: 10/02/17 Exam# [id number] Ordering Dr: Sho Lozano DO STUDY: X-RAY [...] Service support , CC: Sho Lozano DO Vegetable Grower: Signed 28-Mar-2017 Abdomen/Pelvis WITH Contrast Result: Comments: See Note; NOTES: [facility] Imaging Services [address] [place] [address] Abdomen/Pelvis WITH Contrast MR#: [id number] Acct: [id number] Name: MARIAELENA FORMAN ep #: [id number] : 1970 F 46 From: Emre Tan MD PCP: Sho Lozano DO Status: REG CLI Study: Abdomen/Pelvis WITH Contrast Date of Exam: 03/28/17 Exam# [id number] Ordering Dr: Sho Lozano DO STUDY: CT [...] Emre Tan MD at 10:10 EST Tel [phone], Service support , CC: Sho Lozano DO Vegetable Grower: Signed 29-Jul-2016 Brain/Head without Contrast Result: Comments: See Note; NOTES: [facility] Imaging Services [address] [place] [address] Verdana 4d Brain/Head without Contrast MR#: [id number] Acct: [id number] Name: MARIAELENA FORMAN Saray Rep #: [id number] : 1970 F 45 From: Meme Tolliver MD PCP: Sho Lozano DO Status: [facility] ER Study: Brain/Head without Contrast Date of Exam: 07/29/16 Exam# [id number] Ordering Dr: Edu Love MD STUDY: CT [...] CC: Sho Lozano DO; Edu Love MD Vegetable Grower: Signed 27-Sep-2015 CTA Chest W/WO Contrast Result: Comments: See Note; NOTES: [facility] Imaging Services [address] [place] [address] Verdana 4d CTA Chest W/WO Contrast MR#: [id number] Acct: [id number] Name: MARIAELENA HAMEED Rep #: [id number] : 1970 F 45 From: Geronimo Vallejo DO PCP: Sho Lozano DO Status: REG CLI Study: CTA Chest W/WO Contrast Date of Exam: 09/27/15 Exam# [id number] Ordering Dr: Ranjeet Newman STUDY: CTA CHEST [...] Geronimo Vallejo DO at 18:56 EDT Tel [phone], Service support [phone], CC: Sho Lozano DO; Ranjeet Newman Vegetable Grower: Signed 27-Sep-2015 Venous Duplex Lower Extremity Result: Comments: See Note; NOTES: [facility] Cardiovascular Services [address] [place] [address] Venous Duplex US, Unilateral 09/27/15 1544 MR#: [id number] Acct: [id number] Name: MARIAELENA FORMAN Saray Rep #: [id number] : 1970 45 From: Gerard Ford MD [...] Physician: Elida Horton Performed By: Anuj Wyman RVT 09/27/15 1635 Date Gerard Ford MD CC: Elida Horton; Sho Blake DAMON Date Dictated: 09/27/15 1544 Date Transcribed: 09/27/15 1631 Vegetable Grower: Signed 20-Jun-2015 Sleep Study Report Result: Comments: See Note; NOTES: [facility] SLEEP DISORDER CENTER [address] [place] [address] Polysomnography with NCPAP MR#: [id number] Acct: [id number] Name: MARIAELENA POTTER Rep #: [id number] : 1970 44 From: Art Arevalo MD PCP: Sho Lozano DO Status: REG CLI Ordering DrNakul: Jennifer Willams MD Date: 06/14/15 Sex: F C DATE OF SERVICE: 06/14/19 SCORING RULES: Respiratory events were acquired and scored in accordance with the Recommended Standards and Specifications as outlined in the AASM Manual for the Scoring of Sleep and Associated E vents ( most recent version). Please note that a reference to [facility] AHI in this report is consistent with the current Hypopnea definition according to Medicare Criteria and an [facility] AHI reference is consi stent with the current Hypopnea definition according to the AASM criteria and is recognized by [facility] as the RDI. PROCEDURE: The study was attended continuously by a certified medical technician assistant. Monitored paramet ers included left and right [...] calculated body mass index of 50.1 and [place] Sleepiness Scale score of 11/24. The patient [...] when sleepy. INTERPRETING PHYSICIAN: Art Arevalo Jr., M.D. Art Arevalo MD T: MIGUEL JOB: [id number] CC: Art hutchins MD 28 2806/20/15 1556 <Electronically signed by Art Arevalo MD> Date Art Arevalo MD Co-si gnature (if applicable) Date Signed 20-May-2015 Operative Report Result: Comments: See Note; NOTES: [facility] Medical Records Department [address] [place] [address] Operative Report MR#: [id number] Acct: [id number] Name: MARIAELENA FORMAN Rep #: [id number] : 1970 44 From: Raymundo Ordonez MD [...] cecum and ileocecal valve area was achieved. Pala el prep was adequate. There was still [...] Raymundo Ordonez MD T: NT S JOB: [id number] 05/20/15 0555 <Electronically signed by Raymundo Ordonez MD> Date Raymundo Ordonez MD Cosigner Signature (If Indicat ed): Date CC: Sho Lozano DO; Raymundo Ordonez MD Date Dictated: 05/19/15 1008 Date Transcribed: 05/19/15 100 Vegetable Grower: Signed 13-May-2015 Sleep Study Report Result: Comments: See Note; NOTES: [facility] SLEEP DISORDER CENTER [address] [place] [address] Unattended Sleep Study MR#: [id number] Acct: [id number] Name: MARIAELENA FORMAN Rep #: [id number] : 1970 44 From: Silverio Nolen MD [...] version). Please note that a reference to [facility] AHI in this report is consistent with the current Hypopnea definition according to Medicare Criteria and an AASM AHI reference is cons istent with the current Hypopnea definition according to the AASM criteria and is recognized by [facility] as the RDI. PROCEDURE: The study was unattended in the patient's home setting. Monitored parameter s included airflow with nasal pressure transducer, chest and abdominal plethysmography efforts, and oxygen saturation with heart rate. INTRODUCTION: This is an ApneaLink apnea screening study perfo rmed on this 44-year-old female with a history of asthma, gastroesophageal reflux disease, hypothyroidism, and an [place] Sleepiness Scale score of 11 as well [...] abnormal ApneaLink screening study consist ent with bdsl-rr-lvqpirbm obstructive sleep apnea. If this is felt to be clinically significant, formal CPAP titration study should be performed. Silverio Nolen MD T: NTS JOB: [id number] CC: Silverio Nolen MD 32 05/13/15 1517 <Electronically signed by Silverio Nolen MD> Date Silverio mcclure MD Co-signature (if applicable) Date Signed 18-Apr-2015 Emergency Department Summary Result: Comments: See Note; NOTES: [facility] Medical Records Department [address] [place] [address] Emergency Department Summary MR#: [id number] Acct: [id number] Name: BREEZY MORTONMARIAELENA Saray Rep #: [id number] : 1970 44 From: Jesse Barrera MD PCP: Sho Lozano DO Status: [facility] DATE OF SERVICE: 04/08/2015 CHIEF COMPLAINT: Chest pain. HISTORY OF [place] ES[place] ILLNESS: This is a 44-year-old female [...] Jesse Barrera MD T: NTS JOB : [id number] 04/18/15 0309 <Electronically signed by Jesse Barrera MD> Date Jesse Barrera MD Cosigner Signature (If Indicated): D ate CC: Sho Lozano DO Date Dictated: 04/08/151722 Date Transcribed: 04/08/151722 Vegetable Grower: Signed 12-Apr-2015 12 Lead Electrocardiogram Result: Comments: See Note; NOTES: [facility] Cardiovascular Services [address] [place] [address] 12 Lead EKG 04/08/15 1608 MR#: [id number] Acct: [id number] Name: MARIAELENA ARROYO Rep #: [id number] : 1970 44 From: Tommie Luciano MD [...] cannot be excluded Abnormal ECG Confirmed by WISAM RODRIGUES, TOMMIE ([id number]), content editor PERCY JOHN (56) on 04/12/2015 8:32:04 AM Referred By: SOUTH Confirmed By:TOMMIE LUCIANO MD 04/12/15 0832 Date Tommie Luciano MD CC: Sho Lozano DO Date Dictated: 04/08/15 160 Date Transcribed: 04/08/151607 Vegetable Grower: Signed 12-Apr-2015 12 Lead Electrocardiogram Result: Comments: See Note; NOTES: [facility] Cardiovascular Services [address] [place] [address] 12 Lead EKG 04/08/15 1715 MR#: [id number] Acct: [id number] Name: MARIAELENA ARROYO Rep #: [id number] : 1970 44 From: Tommie Luciano MD [...] Normal ECG Confirmed by TOMMIE LUCIANO MD ([id number]), content editor PERCY JOHN (56) on 04/12/2015 8:32:21 AM Referred By: CAL Confirmed By:TOMMIE LUCIANO MD 04/12/15 0832 Date Tommie Luciano MD CC: Sho Lozano DO Date Dictated: 04/08/151714 Date Transcribed: 04/08/151714 Vegetable Grower: Signed 08-Apr-2015 Discharge Instruction Result: Comments: See Note; NOTES: [facility] Medical Records Department [address] [place] [address] Discharge Instruction 04/08/151722 MR#: [id number] Acct: [id number] Name: MARIAELENA FORMAN Rep #: [id number] : 1970 44 From: Jesse Barrera MD PCP: Sho Lozano DO Status: REG ER ED Disposition - Plan for ED Patient: Chief Complaint: Chest Lulu n Instructions: ED Chest Pain, Noncardiac What to do if you have Problems For any increased pain, shortness of breath, bleeding, nausea or vomiting, chest pain, or any unexpected problems, conta ct your doctor. Call [facility] ([phone]) or report to the closest Emergency Room. Call 911 if necessary. 04/08/151723 <Electronically signed by Jesse Barrera MD> Da te Jesse Barrera MD Cosigner Signature (If Indicated): Date CC: Sho Lozano DO 08-Apr-2015 Chest PA and Lateral Result: Comments: See Note; NOTES: [facility] Imaging Services [address] [place] [address] Verdana 4d Chest PA and Lateral MR#: [id number] Acct: [id number] Name: MARIAELENA FORMAN Rep #: [id number] : 1970 F 44 From: Darryl Murphy MD PCP: Sho Lozano DO Status: REG ER Study: Chest PA and Lateral Date of Exam: 04/08/15 Exam# [id number] Ordering Dr: Jesse Orona MD STUDY: X-RAY [...] MD at 17:26 EST , Service support [phone], RAD/Chest PA and Lateral IMPRESSION: No acute cardiopulmonary pathology Electronically Signed: Darryl Murphy MD at 17:26 EST Tel , Service support [phone], CC: Jesse Barrera MD; Sho Lozano DO Vegetable Grower: Signed 16-Nov-2014 Spirometry (87182) Comments: ok stable Result: 16-Nov-2014 ELECTROCARDIOGRAM, COMPLETE (ECG) (54881) Comments: nsr no acute chg Result: [MEASUREMENTS ANALYSIS] Date of Test: 11/16/2014 14:41:53; Heart Rate: 66; WV Interval: 190; QRS: 110; QT Interval: 434; Corrected QT Interval (QTc): 444; P [place]: 23; QRS [place]: 10; T [place] : 21; Blood Pressure: 140/76 [ECG DIAGNOSTIC STATEMENTS] Date of Test: 11/16/2014 14:41:53; Summary: Sinus Rhythm -Nonspecific QRS widening. BORDERLINE 12-Mar-2014 Spirometry (95888) Comments: obssturctuce Result: Immunization Name Dates Details Tdap (7 years and up) on: 10-Dec-2008 Comments: Lot #[id number] deltoidgiven by:CDH Family History Unknown Family Member Name Dates Details Father Comments: ETOH, Depression Status: Active Maternal Grandfather Comments: age 62, Brain tumor, ETOH Status: Active Maternal Grandmother Comments: Liver, colon CA, age 60 Status: Active Mother Comments: HTN, Hyperlipidemia, OBesity, Breast CA, Melanoma Status: Active Social History Name Dates Details Current Work/Study Status Comments: Full-time- [employer] Status: Active Living Situation Comments: Single Status: Active Non Drinker/No Alcohol Use Status: Active Non Smoker/No Tobacco Use Status: Active Tobacco use: Never smoker. Status: Active Tobacco use: Never smoker. Comments: radha mullins 5.3.12 Status: Inactive Smoking Status Name Dates Details Never smoker Vital Signs Date Test Result Details 0-Vms-956404:20 Pulse 73 /min Comments: Pattern: Regular Respiration [...] kg/m2 Body Surface Area Calculated 2.91 m2 81-Qzw-173634:03 Pulse 86 /min Comments: Pattern: Regular O2 [...] Value Details :39 Crystals, Body Fluid Comments: [facility] [address] [place], [place], [address] PATH REV Reviewed (Normal) Comments: Negative for malignant cells and crystals.Bloody specimen.Graham Velez M.D. 12/05/17 AMENDED REPORT 12/05/17 1337 PATH REV previously reported as: Will follow SOURCE/BF SYNOVIAL (Normal) CRYSTALS/BF SEE PATH REV (Normal) 5-Opp-567555:39 Culture, Body Fluid Comments: [facility] [address] [place], [place], [address] CUBF See Note (Normal) Comments: RESULTS CALLED TO DR JOHN 12/04/171920 Gokul Boo. REPORT READ BACK BY DR JOHN. List Antibiotics Last 48 Hours? UNKList Antibiotics to be Started? UNKGram StainGram Stain 4+ Gram positive diplococci 4-Dxy-759567:39 Culture, Body Fluid Comments: [facility] [address] [place], [address] CUBF See Note (Normal) Comments: AMENDED Results called on 12/05/17 by TED [place]MAN [place] [address] .List Antibiotics Last 48 Hours? UNKList Antibiotics to be Started? UNKGram StainCentrifuged Specimen? Culture performed on centrifuged specimen Gram Stain 4+ Red Blood Cells Rare White Blood Cells No organisms seen Body Fluid CultCulture exhibits no growth. Cult, AnaerobicNo growth in 5 days. 4-Kxu-340031:39 Synovial Fluid RBC, WBC AND Comments: [facility] [address] [place], [id number] Diff PATH COM/SYFL May follow (Normal) OTHER [...] Bloody (Normal) SYNOVIAL SOURCE LEFT LEG (Normal) 95-Ltr-78472: ENDOMETRIAL See Note (Normal) Comments: [facility] [address] [place], [place], [id number] 00 BX/CURETTINGS Comments: Patient: MARIAELENA FORMAN : 1970 (47/F) Acct Num: [id number] Phys: Donnie RODRIGUES,Cathleen Unit Num: [id number] Loc: [facility] Specimen: [id number] Received: 11/01/17 - 1002 Spec T ype: [...] one cassette. / AM:nancy 11/01/17 TC:5 CPT: 31894 HEADER OPERATION: Hysteroscopy, D AND C, resection, Symphion PRE-OP DIAGNOSIS: Postmenopausal bleeding, thickened endometrium TISSUE SUBMITTED: Endometrial curettings MICROSCOPIC DESCRIPTION Slides are reviewed. MICROSCOPIC DIAGNOSIS Endometrial curettings: Mildly disordered proliferative endometrium. Fragments of myometrium. SJ:nancy 11/05/17 Signed Graham Velez 11/05/17 <signature on file> 76-Itq-794689:30 Type AND Screen Comments: Reason for Type AND Screen/Red Cells: [facility] [address] [place], [address] Antibody Screen NEGATIVE (Normal) BLOOD TYPE GEL B POSITIVE (Normal) 96-Eer-194344:15 ,Urine Comments: [facility] [address] [place], [address] HCGUQUAL Negative {Negative} (Normal) Comments: Very dilute urine specimens, as indicated by a low specificgravity, may not contain sales representative advertising levels of hCG.If is still suspected, a first morning urinespecimen should be collected 48 hours later and tested. 8-Yyk-571058:34 CBC With Differential/Platelet Comments: PATIENT WAS FASTINGPERFORMED BY: [employer] [id number] BY: [facility] CRMVirtua VoorheesXmxxvz9798 [facility] [id number] Immature Grans (Abs) 0.0 {x10E3/uL} (Normal) Range: [...] 3.77-5.28 WBC 7.2 {x10E3/uL} (Normal) Range: 3.4-10.8 6-Tfl-910354:34 Comp. Metabolic Panel Comments: PATIENT WAS FASTINGPERFORMED BY: [employer] [id number] BY: [facility] SystemsVirtua VoorheesVbutpu2843 [facility] [id number] (14) ALT (SGPT) 39 [iU]/L (Abnormal) Range: [...] 6-24 Glucose 96 mg/dL (Normal) Range: 65-99 7-Xrv-530683:34 NMR LipoProfile Comments: PATIENT WAS FASTINGPERFORMED BY: BN [facility] [address] [id number] BY: CB [facility] Kfdvai0835 [facility] [id number] LP-IR Score 87 (Abnormal) Comments: INSULIN RESISTANCE MARKER <--Insulin Sensitive Insulin Resistant--> Percentile in Reference PopulationInsulin Resistance ScoreLP-IR Score Low 25th 50th 75th High <27 27 45 63 >63LP-IR Score is inaccurate if patient is non-fasting. .The LP-IR score is a laboratory developed i [facility] that has beenassociated with insulin resistance [...] were developed and their performance characteristicsdetermined by [employer]. These assays have not been cleared by [...] 1600 - 2000 Very High > 2000 03-Oct-2017 TSH 2.270 {uIU/mL} Comments: PATIENT WAS FASTINGPERFORMED BY: LabCoJoseph [place] [address] [facility] [id number] BY: [facility] Aqwxot4761 [address] [facility] [place] [id number] 11:34 (Normal) Range: 0.450-4.500 03-Oct-2017 Vitamin D, 25-Hydroxy 15.4 ng/mL Comments: PATIENT WAS FASTINGPERFORMED BY: LabCo[address] [id number] BY: [facility] Grmvfa4545 Diaz RoadDublin [place] [id number] 11:34 (Abnormal) Range: 30.0-100.0 Comments: Vitamin D deficiency has been defined by the [place] [facility] and an Endocrine Society practice guideline as alevel of serum 25-OH vitamin D less than 20 ng/mL (1,2).The Endocrine Society went on to further define vitamin Dinsufficiency as a level between 21 and 29 ng/mL (2).1. IOM ([place] of Medicine). 2010. Dietary reference intakes for calcium and D. [place]: The National Academies Press.2. Sharon MF, Adarsh NC, Lisa SANDERSON, et al. Evaluation, treatment, and prevention of vitamin D deficiency: an Endocrine Society clinical practice guideline. JCEM. 2010; 96(7):1911-30. 4-Iuh-289990:34 Microscopic Examination Comments: PATIENT NOT FASTINGPERFORMED BY: [facility] Umtjrl2121 [facility] [place] [id number] Bacteria None seen (Normal) Mucus Threads Present (Normal) Epithelial Cells (non renal) 0-10 {/hpf} (Normal) Range: 0 - 10 RBC 0-2 {/hpf} (Normal) Range: 0 - 2 WBC 0-5 {/hpf} (Normal) Range: 0 - 5 0-Ucv-599250:34 URINALYSIS, W/ MICRO Comments: PATIENT NOT FASTINGPERFORMED BY: [facility] Esrfmh3858 [facility] [place] [id number] Information: [id number] (90352) Microscopic Examination See below: (Normal) Comments: Microscopic was indicated and was performed. Nitrite, Urine Negative (Normal) Urobilinogen,Semi-Qn 0.2 mg/dL (Normal) Range: 0.2-1.0 Bilirubin Negative (Normal) Occult Blood Negative (Normal) Ketones Negative (Normal) Glucose Negative (Normal) Protein Negative (Normal) WBC Esterase Trace (Abnormal) Appearance Clear (Normal) Urine-Color Yellow (Normal) pH 7.0 (Normal) Range: 5.0-7.5 Specific [place] 1.012 (Normal) Range: 1.005-1.030 5-Soa-952038:34 MICROALBUMIN: CREATININE RATIO Comments: PATIENT NOT FASTINGPERFORMED BY: [place]de Gydxpl1114 [employer] [facility] [id number] (13111) AND (37062) Alb/Creat Ratio <10.6 {mg/g_creat} (Normal) Range: 0.0-30.0 Albumin, Urine <3.0 ug/mL (Normal) Creatinine, Urine 28.2 mg/dL (Normal) 1-Mki-749796:17 HgA1C , Office (48511) HgA1C , Office 6.0 % (Normal) Range: 4.6 - 7.1 1-Aou-185222:17 Blood Glucose , Office (55340) Blood Glucose , Office 106 (Normal) 26-Ydh-459718:06 URINE KATHY CULTURE-IDENTIFICATN Comments: PATIENT NOT FASTINGPERFORMED BY: [facility] Hxigwq9810 [facility] [id number] Information: SRC:LAURE (16373) Result 1 BETAGB (Abnormal) Comments: Beta hemolytic [...] (CLSI 2011) Urine Final report (Abnormal) Culture,Comprehensive 64-Tuv-197748:07 Urinalysis, Office (68629) UA - LEUKOCYTE ESTERASE Negative (Normal) UA - NITRITE Negative (Normal) URINE UROBILINGN JASON TIMED 2 mg/dL (Normal) UA - PROTEIN Negative mg/dL (Normal) UA - PH 7.5 (Normal) UA - BLOOD Negative (Normal) UA - SPECIFIC GRAVITY 1.015 (Normal) UA - KETONES Negative mg/dL (Normal) UA - BILIRUBIN Negative (Normal) UA - GLUCOSE Negative (Normal) 6-Vzw-514305:26 HEPATITIS PANEL (11515) Comments: PATIENT NOT FASTINGPERFORMED BY: [place] BandApp [facility] [id number] Hep C Virus Ab 0.1 {s/co_ratio} (Normal) Range: 0.0-0.9 Comments: Negative: < 0.8 Indeterminate: 0.8 - 0.9 Positive: > 0.9 . The CDC recommends that a positive HCV antibody result be followed up with a HCV Nucleic Acid Amplification test (790398). Hep B Core Ab, IgM Negative (Normal) HBsAg Screen Negative (Normal) Hep A Ab, IgM Negative (Normal) 2-Yim-466546:26 ANTIMITOCHONDRIAL ANTIBODY Comments: PATIENT NOT FASTINGPERFORMED BY: [employer]Re[employer] [facility] [id number] (27715) Mitochondrial (M2) Antibody <20.0 {Units} (Normal) Range: 0.0-20.0 Comments: Negative 0.0 - 20.0 Equivocal 20.1 - 24.9 Positive >24.9 . Mitochondrial (M2) Antibodies are found in 90-96% of patients with primary biliary cirrhosis. 4-Ukl-759374:26 TRANSFERRIN (46244) Comments: PATIENT NOT FASTINGPERFORMED BY: [place] Enocdp6435 [facility] [id number] Transferrin 310 mg/dL (Normal) Range: 200-370 8-Jfx-090423:26 GGT (GAMMA GLUTAMYLTRANSFERASE) Comments: PATIENT NOT FASTINGPERFORMED BY: [employer] [facility] [id number] (34574) GGT 40 [iU]/L (Normal) Range: 0-60 1-Zoc-276951:26 FERRITIN (95756) Comments: PATIENT NOT FASTINGPERFORMED BY: [facility]6370 [facility] [id number] Ferritin, Serum 55 ng/mL (Normal) Range: 15-150 :26 CMV IGM ANTBDY (26279) Comments: PATIENT NOT FASTINGPERFORMED BY: [place] 1444270 [facility] [id number] Cytomegalovirus (CMV) Ab, IgM <30.0 AU/mL (Normal) Range: 0.0-29.9 Comments: Negative <30.0 Equivocal 30.0 - 34.9 Positive >34.9 A positive result is generally indicative of acute infection, reactivation or persistent IgM production. :26 CERULOPLASMIN (86567) Comments: PATIENT NOT FASTINGPERFORMED BY: [address] [id number] Ceruloplasmin 35.3 mg/dL (Normal) Range: 19.0-39.0 :26 ASM (ANTI SMOOTH MUSCLE Comments: PATIENT NOT FASTINGPERFORMED BY: [address] [id number] ANTIBODY) (40640) Actin (Smooth Muscle) Antibody 8 {Units} (Normal) Range: 0-19 Comments: Negative 0 - 19 Weak positive 20 - 30 Moderate to strong positive >30 . Actin Antibodies are found in 52-85% of patients with autoimmune hepatitis or chronic active hepatitis and in 22% of patients with primary biliary cirrhosis. :26 ANTI-LIVER/KIDNEY MICROSOMAL Comments: PATIENT NOT FASTINGPERFORMED BY: [place] 1444270 [facility] [id number] ANTIBODY (22795) Liver-Kidney Microsomal Ab <1.0 {Units} (Normal) Range: 0.0-20.0 Comments: Negative 0.0 - 20.0 Equivocal 20.1 - 24.9 Positive >24.9 . LKM type 1 antibodies are detected in patients with autoimmune hepatitis type 2 and in up to 8% of patients with chronic HCV infection. :26 RIKA (ANTINUCLEAR ANTIBODY) Comments: PATIENT NOT FASTINGPERFORMED BY: [address] [place] [id number] (29953) RIKA Direct Negative (Normal) 7-Che-635985:26 PTNOE-SDABCSMNIKR-FOPVJ (66373) Comments: PATIENT NOT FASTINGPERFORMED BY: [facility] Cdisgu9635 Diaz RoadDublin [place] [id number] AFP, Serum, Tumor Marker 6.6 ng/mL (Normal) Range: 0.0-8.3 Comments: Jaciel ECLIA methodology 32-Ejo-860927:05 HgA1C , Office (21496) HgA1C , Office 5.8 % (Normal) Range: 4.6 - 7.1 93-Oro-426505:07 C-REACTIVE PROTEIN (39400) Comments: PATIENT WAS FASTINGPERFORMED BY: [facility] Gckntl7900 Diaz RoadDublin [place] [id number] C-Reactive Protein, Quant 5.0 mg/L (Abnormal) Range: 0.0-4.9 96-Hjd-634229:07 VITAMIN B-12 (CYANOCOBALAMIN) Comments: PATIENT WAS FASTINGPERFORMED BY: [facility] Gouscp9535 Diaz RoadDublin [place] [id number] (04500) Vitamin B12 870 pg/mL (Normal) Range: 232-1245 16-Kvl-341148:07 Sed Rate Erythrocyte (78734) Comments: PATIENT WAS FASTINGPERFORMED BY: [facility] Uyehay5332 Diaz RoadDublin [place] [id number] Sedimentation Rate-Westergren 7 mm/h (Normal) Range: 0-32 75-Toy-329815:07 CALCIFIDIOL (82777) VIT D 25 Comments: PATIENT WAS FASTINGPERFORMED BY: CB [facility] Lfieob9926 Diaz RoadDublin [place] [id number] Vitamin D, 25-Hydroxy 21.8 ng/mL (Abnormal) Range: 30.0-100.0 Comments: Vitamin D deficiency has been defined by the [place] of[place]icine and an Endocrine Society practice guideline as alevel of serum 25-OH vitamin D less than 20 ng/mL (1,2).The Endocrine Society went on to further define vitamin Dinsufficiency as a level between 21 and 29 ng/mL (2).1. IOM ([place] of [place]). 2010. Dietary reference intakes for calcium and D. [place]: The National Academies Press.2. Sharon MF, Adarsh NC, Lisa SANDERSON, et al. Evaluation, treatment, and prevention of vitamin D deficiency: an Endocrine Society clinical practice guideline. JCEM. 2010; 96(7):1911-30. 90-Evr-001982:07 METABOLIC PANEL, COMPREHENSIVE Comments: PATIENT WAS FASTINGPERFORMED BY: DanceJam LabCoVirtua VoorheesPjmrfr5585 [facility] [id number] (59464) ALT (SGPT) 35 [iU]/L (Abnormal) Range: 0-32 [...] Glucose, Serum 86 mg/dL (Normal) Range: 65-99 27-Wtx-118542:07 CBC W/AUTO DIFF WBC (04259) Comments: PATIENT WAS FASTINGPERFORMED BY: LabCoVirtua VoorheesLoylag2768 [facility] [id number] Immature Grans (Abs) 0.0 {x10E3/uL} (Normal) Range: [...] 3.77-5.28 WBC 8.0 {x10E3/uL} (Normal) Range: 3.4-10.8 81-Qgw-520551:07 LIPID PANEL (54446) Comments: PATIENT WAS FASTINGPERFORMED BY: LabCoVirtua VoorheesXqwgya5456 [facility] [id number] LDL/HDL Ratio 3.1 {ratio_units} (Normal) Range: 0.0-3.2 Comments: LDL/HDL Ratio Men Women 1/2 Avg.Risk 1.0 1.5 Av g.Risk 3.6 3.2 2X Avg.Risk 6.2 5.0 3X Avg.Risk 8.0 6.1 LDL Cholesterol Calc 142 mg/dL (Abnormal) Range: 0-99 VLDL Cholesterol Josr 65 mg/dL (Abnormal) Range: 5-40 HDL Cholesterol 46 mg/dL (Normal) Triglycerides 325 mg/dL (Abnormal) Range: 0-149 Cholesterol, Total 253 mg/dL (Abnormal) Range: 100-199 55-Iac-064380:07 TSH (89293) Comments: PATIENT WAS FASTINGPERFORMED BY: [place] 1444270 [facility] [id number] TSH 2.350 {uIU/mL} (Normal) Range: 0.450-4.500 40-Zac-100688:07 T4, FREE (THYROXINE) (17021) Comments: PATIENT WAS FASTINGPERFORMED BY: [facility]6370 [facility] [id number] T4,Free(Direct) 1.14 ng/dL (Normal) Range: 0.82-1.77 53-Cto-246023:07 T3, FREE (TRIDOTHYRONINE) (91602) Comments: PATIENT WAS FASTINGPERFORMED BY: [facility]6370 [facility] [id number] Triiodothyronine,Free,Serum 2.7 pg/mL (Normal) Range: 2.0-4.4 66-Edn-434757:16 CBC-Complete Blood Cnt No Diff Comments: [facility] Gixnwrkdaq8016 [place], [place], [id number] MPV 11.0 fL (Normal) Range: 6.2-12.0 PLT [...] 4.2-5.4 WBC 8.0 K/mm3 (Normal) Range: 4.4-11.0 26-Dsa-697704:16 Ferritin Comments: Has Patient had X-rays with Contrast this admission? NIs Patient Taking Vitamins or Folic Acid Supplements? [facility] [address] [place], [phone] FERRITIN 28 ng/mL (Normal) Range: 8-252 70-Odo-414900:16 Folates, (Folic Acid) Comments: Has Patient had X-rays with Contrast this admission? NIs Patient Taking Vitamins or Folic Acid Supplements? [facility] [address] [place], [phone] FOLATES 43.90 ng/mL (Abnormal) Range: 3.1-17.5 81-Jsy-404921:16 Free T3 Comments: Has Patient had X-rays with Contrast this admission? NIs Patient Taking Vitamins or Folic Acid Supplements? [facility] [address] [place], [phone] FREE T3 2.4 pg/mL (Normal) Range: 2.18-3.98 33-Dvt-053287:16 Iron Comments: Has Patient had X-rays with Contrast this admission? NIs Patient Taking Vitamins or Folic Acid Supplements? [facility] [address] [place], [phone] IRON 85 ug/dL (Normal) Range: 50-170 75-Uyk-594282:16 Lipid Profile Comments: Has Patient had X-rays with Contrast this admission? NIs Patient Taking Vitamins or Folic Acid Supplements? [facility] [address] [place], [phone] VLDL 29 mg/dL (Normal) Range: 5-40 LDL [...] 200-240 mg/dL Borderline >240 mg/dL High Risk 93-Qfh-762928:16 Liver Profile Comments: Has Patient had X-rays with Contrast this admission? NIs Patient Taking Vitamins or Folic Acid Supplements? [facility] [address] [place], [phone] D BILI 0.15 mg/dL (Normal) Range: 0.00-0.30 T BILI 0.60 mg/dL (Normal) Range: 0.20-1.00 ALT 32 U/L (Normal) Range: 12-78 ALK P 101 U/L (Normal) Range: 45-117 AST 15 U/L (Normal) Range: 15-37 GLOB 4.0 g/dL (Abnormal) Range: 2.3-3.5 ALB 3.6 g/dL (Normal) Range: 3.4-5.0 T PROT 7.6 g/dL (Normal) Range: 6.4-8.2 10-Bku-769327:16 Magnesium Comments: Has Patient had X-rays with Contrast this admission? NIs Patient Taking Vitamins or Folic Acid Supplements? [facility] [address] [place], [phone] MG 2.1 mg/dL (Normal) Range: 1.8-2.4 66-Ibd-198713:16 Partial Thromboplast Time Comments: [facility] [address] [place], [address] PTT 28.6 s (Normal) Range: 24.1-36.2 64-Wor-144834:16 Phosphorus Comments: Has Patient had X-rays with Contrast this admission? NIs Patient Taking Vitamins or Folic Acid Supplements? [facility] [address] [place], [address] PHOS 2.9 mg/dL (Normal) Range: 2.5-4.9 27-Doi-172098:16 Prothrombin Time w/INR Comments: [facility] [address]for[address] [place], [address] INR 1.0 (Normal) PROTIME 12.5 s (Normal) Range: 11.7-14.9 90-Apw-872021:16 T4 Free Direct Comments: Has Patient had X-rays with Contrast this admission? NIs Patient Taking Vitamins or Folic Acid Supplements? [facility] [address] [place], [phone] T4 FREE DIRECT 0.99 ng/dL (Normal) Range: 0.76-1.46 16-Fxy-379283:16 Thyroid Stim Hormone (TSH) Comments: Has Patient had X-rays with Contrast this admission? NIs Patient Taking Vitamins or Folic Acid Supplements? [facility] [address] [place], [address] TSH 1.78 {uIU/mL} (Normal) Range: 0.358-3.74 98-Bjm-497810:16 Vitamin B12 480 pg/mL (Normal) Comments: [facility] [address] [place], [address] Range: 211-911 59-Ysy-936875:40 Basic Metabolic Profile (BMP) Comments: 'TROP' Serial specimen #1, #2, #3, or #4: 1[facility] Thueaywxky4722 [place], [address] GAP 7 (Normal) Range: 5-15 CO2 [...] 7-18 GLU 101 mg/dL (Normal) Range: 70-110 07-Pno-957459:40 CBC W/Diff, Automated Comments: [facility] [address] [place], [address] Absolute Lymph 2.73 {X10_3/ul} (Normal) Range: 0.83-4.51 [...] 4.2-5.4 WBC 8.5 K/mm3 (Normal) Range: 4.4-11.0 26-Utd-633285:40 Partial Thromboplast Time Comments: [facility] [address] [place], [place], [phone] PTT 26.2 s (Normal) Range: 24.1-36.2 :40 Prothrombin Time w/INR Comments: [facility] [address] [place], [phone] INR 0.9 (Normal) PROTIME 11.3 s (Abnormal) Range: 11.7-14.9 30-Iae-767866:40 Troponin-I Comments: 'TROP' Serial specimen #1, #2, #3, or #4: 1[facility] [address]wprhqazp[address] [place], [place], [address] TROPONIN-I < 0.02 ng/mL (Normal) Comments: TROPONIN-I EXPECTED VALUES <0.05 NEGATIVE 0.06 - 0.59 AT RISK OF AR > OR = 0.60 SUGGEST AR 02-May-20169:44 PAP I-G HPV Hi Risk Comments: CYTOLOGY INFORMATION:- CLINICAL INFORMATION: LMP NA- DATE LMP/MENOPAUSE: LMP- COLLECTION VIAL: Thin Prep Vial- TIN CAN FEEDER SOURCE: CERVICAL- COLLECTION TECHNIQUE: BRUSH ONLY/CERVIX BROOM ONLYCYTOLOGY INFORM ATION:- CLINICAL INFORMATION: LMP NA- DATE LMP/MENOPAUSE: LMP- COLLECTION VIAL: Thin Prep Vial- TIN CAN FEEDER SOURCE: CERVICAL- COLLECTION TECHNIQUE: BRUSH ONLY/CERVIX BROOM ONLYSpecimen Comment: [id number] Comment: No. of containers..01 CYTYC Thin Prep VialLabCorp (refer to report for specific site)refer to report for address and phone number HPV HC,HGH RISK Negative Comments: This high-risk HPV test detects thirteen high-risk types(16/18/31/33/35/39/45/51/52/56/58/59/68) withoutdifferentiation.Performed at: - [facility] [id number] (Normal) b Director: Marichuy Matt MD, Phone: [phone] at: = - [facility] [id number] Director: Marichuy Matt MD, Phone: [phone] PAPR Comment Comments: The Pap smear is a [...] system. (Normal) PERFORM Comment Comments: Shahnaz Molina, [employer]gun [employer] Assembly Machine Adjuster (ASCP) (Normal) ADEQ Comment Comments: Satisfactory for evaluation. Endocervical and/or squamous metaplasticcells (endocervical component) are present. (Normal) DIAGN Comment Comments: NEGATIVE FOR INTRAEPITHELIAL LESION AND MALIGNANCY. (Normal) :16 TSH (56917) Comments: PATIENT WAS FASTINGPERFORMED BY: [employer]6370 [facility] [id number] TSH 4.230 {uIU/mL} (Normal) Range: 0.450-4.500 95-Ivy-125909:16 CMV ANTIBODY (48250) Comments: PATIENT WAS FASTINGPERFORMED BY: Bonaverderp Bgkidk7036 [facility] [id number] Cytomegalovirus (CMV) Ab, IgG >10.00 U/mL (Abnormal) Range: 0.00-0.59 Comments: Negative <0.60 Equivocal 0.60 - 0.69 Positive >0.69 75-Rky-205803:16 CMV IGM ANTBDY (23980) Comments: PATIENT WAS FASTINGPERFORMED BY: [employer] Dvyotw3348 [facility] [place] [id number] Cytomegalovirus (CMV) Ab, IgM <30.0 AU/mL (Normal) Range: 0.0-29.9 Comments: Negative <30.0 Equivocal 30.0 - 34.9 Positive >34.9 A positive result is generally indicative of acute infection, reactivation or persistent IgM production. :16 EB ANTIBODY VIRAL CAPSID Comments: PATIENT WAS FASTINGPERFORMED BY: Integrate70 [facility] [id number] (20485) X2 Interpretation: SPRCS (Normal) Comments: EBV Interpretation [...] <36.0 Equivocal 36.0 - 43.9 Positive >43.9 86-Xxy-528682:16 LDH (LD) (LACTATE DEHYDROGENASE) Comments: PATIENT WAS FASTINGPERFORMED BY: BonaverdeVirtua VoorheesSlbang1154 [facility] [id number] (15674) LDH 191 [iU]/L (Normal) Range: 119-226 08-Thj-867822:16 RHEUMATOID FACTOR-QUANT (02760) Comments: PATIENT WAS FASTINGPERFORMED BY: Pathogen SystemsVirtua VoorheesQdqlsi8753 [facility] [id number] RA Latex Turbid. 7.3 {IU/mL} (Normal) Range: 0.0-13.9 50-Kih-145934:16 RIKA (ANTINUCLEAR ANTIBODY) Comments: PATIENT WAS FASTINGPERFORMED BY: Pathogen SystemsVirtua VoorheesGhkcqf8016 [facility] [id number] (19206) RIKA Direct Negative (Normal) 59-Git-436534:16 C-REACTIVE PROTEIN (72548) Comments: PATIENT WAS FASTINGPERFORMED BY: [facility] Leuiwd6344 [facility] [id number] C-Reactive Protein, Quant 6.4 mg/L (Abnormal) Range: 0.0-4.9 09-Gfx-230803:16 SED RATE ERYTHROCYTE (16005) Comments: PATIENT WAS FASTINGPERFORMED BY: LabCoVirtua VoorheesXwthtk7838 [facility] [id number] Sedimentation Rate-Westergren 6 mm/h (Normal) Range: 0-32 47-Kkk-886142:16 METABOLIC PANEL, COMPREHENSIVE Comments: PATIENT WAS FASTINGPERFORMED BY: LabCoVirtua VoorheesUlpsrk6832 [facility] [id number] (65004) ALT (SGPT) 29 [iU]/L (Normal) Range: 0-32 [...] Glucose, Serum 91 mg/dL (Normal) Range: 65-99 76-Wjk-759678:29 Rapid Strep Test, Office (72629) Rapid Strep Test, Office Negative (Normal) 87-Dyj-694792:34 D-Dimer Quantitative (DVT/PE) Comments: [facility] [address] [place], [place], [address] D-DIMER QUANT 1.38 {FEU/ug/m} (Abnormal) Range: 0.27-0.49 Comments: D-Dimer ELEVATED (>0.49): Additional studies and clinicalassessments are indicated to conclude diagnosis of:Deep Vein Thrombosis (DVT) or Pulmonary Embolism (PE)CRITICAL VALUE CALLED TO DR. NEWMAN09/26 1622 Nancy Jaimes.RESULTS READ BACK BY SAME . 07-Bzf-759979:54 URINE KATHY CULTURE (JASON Comments: PATIENT NOT FASTINGPERFORMED BY: [facility] Rfexph2355 [facility] [id number] Information: SRC:[facility] [id number] COL COUNT) (44510) Result 1 BETAGB (Abnormal) Comments: Beta hemolytic [...] been reportedfor Streptococcus pyogenes (group A). (CLSI 2010)Mixed urogenital flora3,000 Colonies/mL Urine Final report (Abnormal) Culture,Comprehensive :05 Urinalysis, Office (88272) UA - LEUKOCYTE ESTERASE Negative (Normal) UA - NITRITE Negative (Normal) URINE UROBILINGN JASON TIMED Normal mg/dL (Normal) UA - PROTEIN Negative mg/dL (Normal) UA - PH 7 (Normal) UA - BLOOD Negative (Normal) UA - SPECIFIC GRAVITY 1.020 (Normal) UA - KETONES Negative mg/dL (Normal) UA - BILIRUBIN Negative (Normal) UA - GLUCOSE Negative (Normal) 19-May-2015 EGD ([facility]) See Note (Normal) Comments: [facility] [address] [place], [address] 9:16 Comments: Patient: MARIAELENA FORMAN : 1970 (44/F) Acct Num: [id number] Phys: José Luis RODRIGUES,Raymundo Unit Num: [id number] Loc: EN Specimen: [id number] Received: 05/19/15 - 1155 Spec Type: EGD BIOPSY TISSUES TISSUES: COMMENT B-The results of IHC for Helicobacter pylori will be reported separately ([id number]). GROSS DESCRIPTION A - Received is one [...] one cassette. / ANA MARÍA:tyrell 05/19/15 TC:1 CPT:18594 x8 HEADER OPERATION: EGD with biopsy and [...] file> 19-May-2015 IMMUNOHISTOCHEMISTRY See Note (Normal) Comments: [facility] [address] [place], [address] 0:00 Comments: Patient: MARIAELENA FORMAN : 1970 (44/F) Acct Num: [id number] Phys: José Luis RODRIGUES,Raymundo Unit Num: [id number] Loc: EN Specimen: [id number] Received: 05/20/15 - 1133 Spec Type: IMMUNO TISSUES TISSUES: SPECIMEN INFORMATION: Tissue Source: Gastric antrum, biopsy Clinical Info: Rectal bleeding, abdominal pain Specimen Number: [id number] CPT code: 14478 METHODOLOGY: Deparaffinized sections of prefer/formalin-fixed tissue or PAP/DQ stained slides are incubated with monoclonal/polyclonal antibodies/oligonucleotide probes. Localization is made via bi otin free immunoperoxidase method. Appropriate controls are performed and reacted as expected. Results on target cell population are indicated in the following table: RESULTS: ANTIBODY / CLONE RESULT H Pylori (polyclonal) negative These tests were developed and their performance characteristics determined by [facility]. They ma y not have been cleared or approved by the U.S. Food and Drug Administration. The FDA has determined that such clearance or approval is not necessary. INTERPRETATION: Gastric antrum, biopsy: Nega tive for Helicobacter pylori organisms. SJ:tyrell 05/20/15 PHYSICIAN AND INSTITUTION [address] [address] Signed Graham Velez 05/20/15 <signature on file> 7-Jfz-602227:22 METABOLIC PANEL, COMPREHENSIVE Comments: PATIENT WAS FASTINGPERFORMED BY: LabCoVirtua VoorheesHvgwet3207 [facility] [id number] (70649) ALT (SGPT) 26 [iU]/L (Normal) Range: 0-32 [...] Glucose, Serum 85 mg/dL (Normal) Range: 65-99 2-Fns-623350:22 CBC W/AUTO DIFF WBC Comments: PATIENT WAS FASTINGPERFORMED BY: [facility]6370 [facility] [id number] Information: [id number] (64140) Immature Grans (Abs) 0.0 {x10E3/uL} (Normal) Range: [...] 3.77-5.28 WBC 6.5 {x10E3/uL} (Normal) Range: 3.4-10.8 5-Szw-813076:22 CALCIFIDIOL (30998) VIT D 25 Comments: PATIENT WAS FASTINGPERFORMED BY: [facility] HospitalBling NationC[facility] [id number] Vitamin D, 25-Hydroxy 18.5 ng/mL (Abnormal) Range: 30.0-100.0 Comments: Vitamin D deficiency has been defined by the [place] of[place] and an Endocrine Society practice guideline as alevel of serum 25-OH vitamin D less than 20 ng/mL (1,2).The Endocrine Society went on to further define vitamin Dinsufficiency as a level between 21 and 29 ng/mL (2).1. IOM ([place]). 2010. Dietary reference intakes for calcium and D. [place]: The National Academies Press.2. Sharon MF, Adarsh MAGANA, Lisa SANDERSON, et al. Evaluation, treatment, and prevention of vitamin D deficiency: an Endocrine Society clinical practice guideline. JCEM. 2010; 96(7):1911-30. 4-Lkd-865525:22 LIPID PANEL (02015) Comments: PATIENT WAS FASTINGPERFORMED BY: [facility] Reinrn3276 [facility] [id number] LDL/HDL Ratio 3.5 {ratio_units} (Abnormal) Range: 0.0-3.2 [...] Cholesterol, Total 248 mg/dL (Abnormal) Range: 100-199 3-Jsg-676263:22 TSH (82753) Comments: PATIENT WAS FASTINGPERFORMED BY: LabCoVirtua VoorheesVhohcv6001 [facility] [id number] TSH 2.760 {uIU/mL} (Normal) Range: 0.450-4.500 2-Ewy-527565:40 Basic Metabolic Profile (BMP) Comments: Serial Specimen #1, #2 or #3? 1'TROP' Serial specimen #1, #2, #3, or #4: 1[facility] Ulmgjdgmrr8322 [facility] [place], [address] GAP 5 (Normal) Range: 5-15 CO2 31.0 [...] 7-18 GLU 89 mg/dL (Normal) Range: 70-110 :40 CBC W/Diff, Automated Comments: [facility] [address]pt[address] [place], [address] Absolute Lymph 2.66 {X10_3/ul} (Normal) [...] 4.2-5.4 WBC 7.5 K/mm3 (Normal) Range: 4.4-11.0 :40 CK-MB Quantitative and Index Comments: Serial Specimen #1, #2 or #3? 1'TROP' Serial specimen #1, #2, #3, or #4: 1[facility] Hwbvjyeneu[address] [place], [address] CKRI 0.7 % (Normal) Range: 0.0-1.4 Comments: RELATIVE INDEX >1.5% IS PRESUMPTIVELY POSITIVE CPKMB 0.8 ng/mL (Normal) Range: 0.0-5.0 Comments: CK-MB and RI Interpretation MB Relative Index Non-AMI <or= 5 NA Indeterminate > 5 <or= 4 AMI > 5 > 4 CPK TOTAL 120 U/L (Normal) Range: 26-192 :40 D-Dimer Quantitative (DVT/PE) Comments: [facility] Zopgoqgrje5511 [facility] [place], [address] D-DIMER QUANT 0.27 {FEU/ug/m} (Normal) Range: 0.27-0.49 Comments: NORMAL D-Dimer level (<0.50) indicates no DVT or PE. :40 Troponin-I Comments: Serial Specimen #1, #2 or #3? 1'TROP' Serial specimen #1, #2, #3, or #4: 1[facility] Pqakihpgbl3776 [facility] [place], [address] TROPONIN-I < 0.02 ng/mL (Normal) Comments: TROPONIN-I EXPECTED VALUES <0.05 NEGATIVE 0.06 - 0.59 AT RISK OF AR > OR = 0.60 SUGGEST AR 16-Kbm-530806:21 METABOLIC PANEL, COMPREHENSIVE Comments: PATIENT NOT FASTINGPERFORMED BY: [facility] Faexst9989 [facility] [id number] (03514) ALT (SGPT) 22 [iU]/L (Normal) Range: 0-32 [...] Glucose, Serum 92 mg/dL (Normal) Range: 65-99 37-Ctf-436895:21 CBC W/AUTO DIFF WBC Comments: PATIENT NOT FASTINGPERFORMED BY: LabCoVirtua VoorheesXhjwyy9333 [facility] [id number] Information: [id number] (59946) Immature Grans (Abs) 0.0 {x10E3/uL} (Normal) Range: [...] 3.77-5.28 WBC 7.3 {x10E3/uL} (Normal) Range: 3.4-10.8 33-Gcg-874725:21 TSH (44295) Comments: PATIENT NOT FASTINGPERFORMED BY: [facility] Ztvumh8211 Diaz RoadDublin [place] [id number] TSH 3.390 {uIU/mL} (Normal) Range: 0.450-4.500 55-Hed-926931:21 CALCIFIDIOL (83133) VIT D 25 Comments: PATIENT NOT FASTINGPERFORMED BY: [employer] [facility] Umyciy8051 Diaz RoadDublin [place] [id number] Vitamin D, 25-Hydroxy 18.9 ng/mL (Abnormal) Range: 30.0-100.0 Comments: Vitamin D deficiency has been defined by the [place] of[place] and an Endocrine Society practice guideline as alevel of serum 25-OH vitamin D less than 20 ng/mL (1,2).The Endocrine Society went on to further define vitamin Dinsufficiency as a level between 21 and 29 ng/mL (2).1. IOM ([place]). 2010. Dietary reference intakes for calcium and D. [place]: The National Academies Press.2. Sharon MF, Adarsh NC, Lisa SANDERSON, et al. Evaluation, treatment, and prevention of vitamin D deficiency: an Endocrine Society clinical practice guideline. JCEM. 2010; 96(7):1911-30. 15-Hzt-037978:21 LIPID PANEL (10687) Comments: PATIENT NOT FASTINGPERFORMED BY: CB [facility] Bscnpc1576 [address] [facility] HospitalDublin [place] [id number]; [address] LDL/HDL Ratio 3.6 {ratio_units} (Abnormal) [...] Cholesterol, Total 250 mg/dL (Abnormal) Range: 100-199 5-Ize-662484:08 Lyme, Western Blot, Comments: PATIENT NOT FASTINGPERFORMED BY: CB [facility] Ahivej5341 [facility] [id number] BY: BN [facility] Fwekoyeujr4889 [facility] [id number] Serum Lyme IgM WB Interp. Negative (Normal) [...] positivity are those recommended by CDC/ASTPHLD.p23=Osp C, x24=swhfbqmcd .Note:Sera from individuals with the following may cross react in theLyme Western Blot assays: other spirochetal diseases (periodontaldisease, leptospirosis, relapsing fever, yaws, and pinta);connective autoimmune (Rheumatoid Arthritis and Systemic Lupu sErythematosus and also individuals with Antinuclear Antibody);other infections ([place] Spotted Fever; Shakeel-Solis Virus,and Cytomegalovirus). . IgM [...] Absent (Normal) IgG P93 Ab. Absent (Normal) 7-Kdd-134534:08 Lyme Disease Antibody W/ Comments: PATIENT NOT FASTINGPERFORMED BY: Pathogen SystemsAshley Ville 9454970 [facility] [id number] BY: [place] [id number] Reflex (82189) Lyme IgG/IgM Ab <0.91 {ISR} (Normal) Range: 0.00-0.90 Comments: Negative <0.91 Equivocal 0.91 - 1.09 Positive >1.09 Please note reference interval change 3-Pdp-479067:08 C-REACTIVE PROTEIN (34456) Comments: PATIENT NOT FASTINGPERFORMED BY: [employer] [id number] BY: [address] [id number] C-Reactive Protein, Quant 5.0 mg/L (Abnormal) Range: 0.0-4.9 0-Ziv-958628:08 Sed Rate Erythrocyte Comments: PATIENT NOT FASTINGPERFORMED BY: [employer] [id number] BY: [place] [id number] (36962) Sedimentation Rate-Westergren 8 mm/h (Normal) Range: 0-32 7-Pwj-346831:08 Metabolic Panel, Comments: PATIENT NOT FASTINGPERFORMED BY: [employer] [id number] BY: [place] [id number] Comprehensive (10736) ALT (SGPT) 22 [iU]/L (Normal) Range: 0-32 [...] Glucose, Serum 89 mg/dL (Normal) Range: 65-99 7-Lcr-888540:08 CBC with auto diff Comments: PATIENT NOT FASTINGPERFORMED BY: CB [facility] Lugllo9560 [facility] [id number] BY: BN [facility] Sssowsbhky3024 [facility] [id number] Inf ormation: [id number] (45054) Immature Grans (Abs) 0.0 {x10E3/uL} (Normal) Range: [...] 3.77-5.28 WBC 8.0 {x10E3/uL} (Normal) Range: 3.4-10.8 7-Kpr-993100:40 Rapid Flu (26112 x 2) Influenza A Ag neg (Normal) 70-Zgi-920408:27 Urinalysis, Office (24147) UA - LEUKOCYTE ESTERASE Negative (Normal) UA - NITRITE Negative (Normal) URINE UROBILINGN JASON TIMED Normal mg/dL (Normal) UA - PROTEIN Negative mg/dL (Normal) UA - PH 6.5 (Normal) UA - BLOOD Negative (Normal) UA - SPECIFIC GRAVITY 1.010 (Normal) UA - KETONES Negative mg/dL (Normal) UA - BILIRUBIN Negative (Normal) UA - GLUCOSE Negative (Normal) 99-Iiy-618225:22 Urine Test, Office (22258) Urine Test, Office Negative (Normal) 54-Vvo-471466:08 CALCIFIDIOL (19348) VIT D 25 Comments: PATIENT NOT FASTINGPERFORMED BY: [facility] Serjhb0104 [facility] [id number] Vitamin D, 25-Hydroxy 17.5 ng/mL (Abnormal) Range: 30.0-100.0 Comments: Vitamin D deficiency has been defined by the [place] of[place] and an Endocrine Society practice guideline as alevel of serum 25-OH vitamin D less than 20 ng/mL (1,2).The Endocrine Society went on to further define vitamin Dinsufficiency as a level between 21 and 29 ng/mL (2).1. IOM ([place]). 2010. Dietary reference intakes for calcium and D. [place]: The National Academies Press.2. Sharon MF, Adarsh MAGANA, Lisa SANDERSON, et al. Evaluation, treatment, and prevention of vitamin D deficiency: an Endocrine Society clinical practice guideline. JCEM. 2010; 96(7):1911-30. 88-Dgk-278395:08 Folate (17435) Comments: PATIENT NOT FASTINGPERFORMED BY: CB [facility] Ohpemr0405 Diaz RoadDublin [place] [id number] Folate (Folic Acid), Serum 12.5 ng/mL (Normal) Comments: A serum folate concentration of less than 3.1 ng/mL isconsidered to represent clinical deficiency. 01-Bhv-523248:08 VITAMIN B-12 (CYANOCOBALAMIN) Comments: PATIENT NOT FASTINGPERFORMED BY: CB [facility] Taneon5978 Diaz RoadDublin [place] [id number] (04204) Vitamin B12 353 pg/mL (Normal) Range: 211-946 :08 TSH (19846) Comments: PATIENT NOT FASTINGPERFORMED BY: CB [facility] Apkqhx5720 [address] RoadDublin [place] [id number] TSH 4.350 {uIU/mL} (Normal) Range: 0.450-4.500 43-Tws-523069:08 SED RATE ERYTHROCYTE (88401) Comments: PATIENT NOT FASTINGPERFORMED BY: CB [facility] Stugys1088 [address] RoadDublin [place] [id number] Sedimentation Rate-Westergren 2 mm/h (Normal) Range: 0-32 03-Ymv-420737:08 RHEUMATOID FACTOR-QUANT (38906) Comments: PATIENT NOT FASTINGPERFORMED BY: CB [facility] Dwjcar6503 [address] RoadDublin [place] [id number] RA Latex Turbid. 6.7 {IU/mL} (Normal) Range: 0.0-13.9 28-Uhr-727164:08 METABOLIC PANEL, Comments: PATIENT NOT FASTINGPERFORMED BY: [facility] Anqyss7027 [facility] [id number] Information: [id number] COMPREHENSIVE (49327) ALT (SGPT) 21 [iU]/L (Normal) Range: 0-32 [...] Glucose, Serum 88 mg/dL (Normal) Range: 65-99 49-Lcs-253271:08 C-REACTIVE PROTEIN (32959) Comments: PATIENT NOT FASTINGPERFORMED BY: ExpertBeaconCoVirtua VoorheesGxmkng2339 [facility] [id number] C-Reactive Protein, Quant 6.1 mg/L (Abnormal) Range: 0.0-4.9 61-Stw-816311:08 CBC (AUTO) (51167) Comments: PATIENT NOT FASTINGPERFORMED BY: ExpertBeaconOsf [facility]6370 [facility] [id number] Platelets 487 {x10E3/uL} (Abnormal) Range: 150-379 RDW 13.8 % (Normal) Range: 12.3-15.4 MCHC 34.1 g/dL (Normal) Range: 31.5-35.7 MCH 30.8 pg (Normal) Range: 26.6-33.0 MCV 91 fL (Normal) Range: 79-97 Hematocrit 40.8 % (Normal) Range: 34.0-46.6 Hemoglobin 13.9 g/dL (Normal) Range: 11.1-15.9 RBC 4.51 {x10E6/uL} (Normal) Range: 3.77-5.28 WBC 7.4 {x10E3/uL} (Normal) Range: 3.4-10.8 54-Qrn-037029:08 RIKA (ANTINUCLEAR ANTIBODY) Comments: PATIENT NOT FASTINGPERFORMED BY: Pathogen SystemsVirtua VoorheesZvjdto8254 [facility] [id number] (24033) RIKA Direct Negative (Normal) 39-Tbu-845996:01 METABOLIC PANEL, Comments: PATIENT WAS FASTINGPERFORMED BY: [facility]BeaconO[facility]6370 [facility] [id number] Information: [id number] COMPREHENSIVE (39499) ALT (SGPT) 21 [iU]/L (Normal) Range: 0-32 [...] mg/dL (Normal) Range: 65-99 : LIPID PANEL (59174) Comments: PATIENT WAS FASTINGPERFORMED BY: Pathogen SystemsVirtua VoorheesInuywj7706 [facility] [id number] LDL/HDL Ratio 3.1 {ratio_units} (Normal) Range: 0.0-3.2 LDL Cholesterol Calc 146 mg/dL (Abnormal) Range: 0-99 VLDL Cholesterol Josr 28 mg/dL (Normal) Range: 5-40 HDL Cholesterol 47 mg/dL (Normal) Comments: According to ATP-III Guidelines, HDL-C >59 mg/dL is considered anegative risk factor for CHD. Triglycerides 142 mg/dL (Normal) Range: 0-149 Cholesterol, Total 221 mg/dL (Abnormal) Range: 100-199 : TSH (82380) Comments: PATIENT WAS FASTINGPERFORMED BY: Pathogen SystemsVirtua VoorheesRwsujj0627 [facility] [id number] TSH 2.590 {uIU/mL} (Normal) Range: 0.450-4.500 85-Lag-799043:01 TSH (THYROID STIMULATING Comments: PATIENT WAS FASTINGPERFORMED BY: ExpertBeaconO[facility] [place] [address] [id number] HORMONE) (32432) TSH 4.510 {uIU/mL} (Abnormal) Range: 0.450-4.500 46-Yip-350657:01 LIPID PANEL (54557) Comments: PATIENT WAS FASTINGPERFORMED BY: LabOsf [facility]6370 [facility] [id number] Information: ADD [id number] AND DRAW FEE 99 6660 LDL/HDL Ratio 3.1 {ratio_units} (Normal) Range: 0.0-3.2 LDL Cholesterol Calc 138 mg/dL (Abnormal) Range: 0-99 HDL Cholesterol 44 mg/dL (Normal) Comments: According to ATP-III Guidelines, HDL-C >59 mg/dL is considered anegative risk factor for CHD. VLDL Cholesterol Josr 28 mg/dL (Normal) Range: 5-40 Triglycerides 139 mg/dL (Normal) Range: 0-149 Cholesterol, Total 210 mg/dL (Abnormal) Range: 100-199 12-Rqq-462649:01 CALCIFEDIOL (99012) Comments: PATIENT WAS FASTINGPERFORMED BY: LabCo Saxjml6259 [facility] [id number] Vitamin D, 25-Hydroxy 31.8 ng/mL (Normal) Range: 30.0-100.0 Comments: Vitamin D deficiency has been defined by the [place] of[place] and an Endocrine Society practice guideline as alevel of serum 25-OH vitamin D less than 20 ng/mL (1,2).The Endocrine Society went on to further define vitamin Dinsufficiency as a level between 21 and 29 ng/mL (2).1. IOM ([place]). 2010. Dietary reference intakes for [...] Positive: >20 - 80 High Positive: >80 6-Kyp-723769:16 AT3F tAT3AI 104 % (Normal) Range: 75-130 AT3 97 % (Normal) Range: 75-135 6-Xxb-687772:16 BETA2G gDGSX6Q$ <9 (Normal) Range: 0-20 Comments: INFCE Result Units: GPI IgA units yJVGJ1L$ <9 (Normal) Range: 0-20 Comments: INFCE Result Units: GPI IgG units fQLBN6I$ <9 (Normal) Range: 0-20 Comments: INFCE Result Units: GPI IgM units 3-Hnp-252533:16 FACIID tFACIID Comment (Normal) Comments: NEGATIVENo mutation identified. .Comment:A point mutation ([id number]) in the factor II (prothrombin)gene is the [...] individual mutations. This assaydetects only the prothrombin S27672A mu tation and doesnot measure genetic abnormalities elsewhere in thegenome. Other thrombotic risk factors may be pursuedthrough systematic clinical laboratory analysis. Thesefactors include the R506Q (Leid en) mutation in the Factor Vgene, plasma homocysteine levels, as well as testing fordeficiencies of antithrombin III, protein C and protein S. 1-Piz-515984:16 FACVL tFACVL Comment (Normal) Comments: Result: Negative [...] in the workup for venous thrombosis include [id number] mutation in the factor II (prothrombin) gene,protein S and C deficiency, and antithromb in deficiencies.Anticardiolipin antibody and lupus anticoagulant analysismay be appropriate for certain patients, as well ashomocysteine levels. .Contact your local [facility] for information on how to orderadditional testing if desired. .Genetic counselors are available for health care* providers to discuss results at [phone] ([phone]). .Methodology:DNA analysis of the Factor V gene [...] Ph.D.Ashley Deluna M.D .Sheron Leroy, Ph.D. . 7-Sjp-385284:16 HOMO 8.0 umol/L (Normal) Range: 3.2-10.7 :16 PROTC PRC 125 % (Normal) Range: 70-140 PRCF 168 % (Abnormal) Range: 74-151 :16 PROTS tPROSFU 112 % (Normal) Range: 60-145 tPROSF 118 % (Normal) Range: 56-124 tPROST 105 % (Normal) Range: 58-150 : PT INR 1.9 (Normal) PTP 21.4 s (Abnormal) Range: 11.9-14.4 :07 PT INR 2.1 (Normal) PTP 22.5 s (Abnormal) Range: 11.9-14.4 : PT INR 1.8 (Normal) PTP 20.6 s [...] 4.2-5.4 WBC 6.0 K/mm3 (Normal) Range: 4.4-11.0 2-Hga-290063:33 COMP METABOLIC GAP 10 (Normal) Range: 5-15 [...] {uIU/mL} (Normal) Range: 0.358-3.74 :33 VIT D,25 56080 28.7 ng/mL (Abnormal) Range: 30.0-100.0 Comments: Vitamin D deficiency has been defined by the [place] ofPome[facility] Hospitalcine and an Endocrine Society practice guideline as alevel of serum 25-OH vitamin D less than 20 ng/mL (1,2).The Endocrine Society went on to further define vitamin Dinsufficiency as a level between 21 and 29 ng/mL (2).1. IOM ([place]). 2011. Dietary reference intakes for calcium and D. [place]: The National Academies Press.2. Sharon MF, Adarsh NC, Lisa SANDERSON, et al. Evaluation, treatment, and prevention of vitamin D deficiency: an Endocrine Society clinical practice guideline. JCEM. 2010; 96(7): 1911-30.Performed at: [address] [id number] Director: Nuzhat Worrell MD, Phone: [phone] 1-Msg-205551:30 CHEST WITH CONTRAST Radiology Report See Note [...] radiologist regarding this report, please call our 16X6whqgbty line @ Dictated on 04/04/11 1546 by Mel Tan MDranscribed on 04/04/11 1638 by ITS IMPORTSign by Emre Tan MD on 04/04/11 1639 Sign by: Emre Tan MD 81-Ulk-063889:49 PRO TIME INR 1.8 (Normal) PROTIME 20.2 s (Abnormal) Range: 11.9-14.4 93-Uko-506735:18 Prothrombin Time (PT) Comments: PERFORMED BY: [facility] Zzhjzm2029 [facility] [id number] Prothrombin Time 25.5 {sec} (Abnormal) Range: 9.1-12.0 [...] be affected. Range: 0.358-3.74 :44 VIT D,25 54915 16.7 ng/mL (Abnormal) Range: 32.0-100.0 Comments: Effective January 22, 2011 Vitamin D, 25-Hydroxy reference intervals will be changing to 30-100. .Recent studies consider the lower li jay of 32.0 ng/mL to be athreshold for optimal health.Luis HERNADEZ. J Nutr. 2004;135(2):317-22.Performed at: [place] [address] [place], [place] [id number] Director: Nuzhat Worrell MD, Phone: [phone] TSH 1.72 {uIU/mL} (Normal) Range: 0.358-3.74 39-Cvp-384646:21 BRAIN/HEAD WITHOUT CONTRAST Radiology Report See Note [...] 05/22/10 1650 Sign by: PITA CONTRERAS MD 07-Dbu-111255:19 SINUS/FACIAL BONE Radiology Report See Note (Normal) [...] Comments: GLU,2HPPG 75gm GLUC PPG GLUP from 0714:N91974W. :23 COMPLETE UA BACTERIA 0 SEEN {/hpf} [...] CHOL 208 mg/dL (Abnormal) Comments: <200 mg/dL Fyulkeblr600-221 mg/dL Borderline>240 mg/dL High Risk :23 TSH 2.35 {uIU/mL} (Normal) Range: 0.358-3.74 60-Mdy-224064:19 CULTURE, URINE URINE CULTURE See Note {CFU/mL} (Normal) Comments: COLONY COUNT 25,000-50,000 ORGANISM 1: MIXED GRAM POSITIVE ORGANISMS 08-Rfi-842935:07 Rapid Flu (98418 x 2) INFLUENZA IMMUNOASSY DIRECT OPTICAL OBSERV neg (Normal) 12-Sgp-387510:07 Rapid Strep Test, Office (64309) Rapid Strep Test, Office Negative (Normal) 69-Llu-803077:46 CULTURE, URINE URINE CULTURE See Note (Normal) Comments: Predominant being a gram positive skip, possibleLactobacillus species. COLONY COUNT 80,000- 100,000 ORGANISM 1: MIXED GRAM POSITIVE ORGANISMS 85-Fjp-776468:13 Urinalysis, Office (75260) UA - BILIRUBIN Negative (Normal) UA - [...] :17 TSH 1.78 {uIU/mL} (Normal) Range: 0.358-3.74 81-Abq-354621:59 ABDOMEN WITH CONTRAST Radiology Report See Note (Normal) Comments: Exam Number: [id number] CT OF THE ABDOMEN AND PELVIS WITH [...] and splenectomy. Reported By: PITA ALBERTS M.D. 30-Usn-002736:59 PELVIS WITH CONTRAST Radiology Report See Note (Normal) Comments: Exam Number: [id number] CT OF THE ABDOMEN AND PELVIS WITH [...] and splenectomy. Reported By: PITA ALBERTS M.D. 35-Jqd-36217:36 Upper Respiratory Culture Comments: Clinical Information: SRC:JACE YANES [id number] PERFORMED BY: [employer]6370 [facility] [id number] Result 1 RRF (Normal) Comments: Routine respiratory ed Upper Respiratory Culture Final report (Normal) 22-Jan-2007 Antistreptolysin O Ab 37.7 {IU/mL} Comments: PATIENT NOT FASTINGPERFORMED BY: [employer]6370 [facility] [id number] 9:26 (Normal) Range: 0.0-200.0 41-Tlg-47410:26 Comp. Metabolic Panel (14) Comments: PATIENT NOT FASTINGPERFORMED BY: [employer]6370 [facility] [id number] A/G Ratio 1.2 (Normal) Range: 1.1-2.5 Albumin, [...] (ANTINUCLEAR ANTIBODY) Comments: PATIENT NOT FASTINGPERFORMED BY: [facility]6370 [facility] [id number] (25616) Antinuclear Antibodies Direct 55 AU/mL (Normal) Range: 0-99 Comments: Negative <100 Equivocal 100 - 120 Positive >120 :26 Sed Rate Erythrocyte (84054) Comments: PATIENT NOT FASTINGPERFORMED BY: ExpertBeaconDaniel [place] 0629370 [facility] [id number] Sedimentation Rate-Westergren 6 mm/h (Normal) Range: 0-20 :26 CBC, Platelets & Auto Diff Comments: PATIENT NOT FASTINGPERFORMED BY: Pathogen SystemsAshley Ville 9454970 [facility] [id number] (77020) Baso (Absolute) 0.1 {x10E3/uL} (Normal) Range: 0.0-0.2 [...] Ischemic stroke of frontal lobe : Reviewed Insurance Writer Letter Indication: Ischemic stroke of frontal lobe [...] Indication: Sleep apnea Cough, persistent : Reviewed Insurance Writer Letter- dr overton /[place]-no evid of gerd /cebul hh/ slight gerd Indication: Cough, persistent Polyp of colon, adenomatous : Reviewed Insurance Writer Letter- Tessie- rescope in 3yrs Indication: Polyp [...] other allergen MYOCARDIAL INFARCTION, NOS : Reviewed Insurance Writer Letter Indication: MYOCARDIAL INFARCTION, NOS MYOCARDIAL INFARCTION, [...] Indication: Acute sinusitis, unspecified Planned Observations TSH (46924)Indication: Hypothyroidism, unspecified On: :02 Request METABOLIC PANEL, COMPREHENSIVE (85296)Indication: Abnormal glucose tolerance test (Renamed from Abnormal glucose tolerance test (GTT)) On: :02 Request CBC W/AUTO DIFF WBC (02326)Indication: Abnormal glucose tolerance test (Renamed from Abnormal glucose tolerance test (GTT)) On: :02 Request LIPOPROTEIN, BLD, BY NMR (68573)Indication: Hypercholesteremia On: :01 Request CALCIFIDIOL (73280) VIT D 25Indication: Vitamin D deficiency, unspecified On: :01 Request Rapid Flu (23500 x 2)Indication: Fever and chills On: 76-Naw-545110:22 Request EB ANTIBODY NUCLR ANTIGN (49069)Indication: Lymphadenopathy, cervical On: 05-Zuz-326662:29 Request D-Dimer (04607)Indication: History of DVT (deep vein thrombosis) On: 57-Qwq-223003:06 Request METABOLIC PANEL, COMPREHENSIVE (73719)Indication: Hypercholesteremia On: :42 Request CBC W/AUTO DIFF WBC (60589)Indication: Hypercholesteremia On: :42 Request LIPID PANEL (93040)Indication: Hypercholesteremia On: :42 Request TSH (11983)Indication: Hypothyroidism, unspecified On: 60-Khe-10974:42 Request CALCIFIDIOL (13602) VIT D 25Indication: Vitamin D deficiency, unspecified On: 07-Dig-08445:41 Request LIPID PANEL (60905)Indication: Hypercholesteremia On: 02-Dec-20149:35 Request Comments: do in 4months TSH (40755)Indication: Hypothyroidism, unspecified On: :30 Request Anti-TPO Antibody (66782)Indication: Hypothyroidism, unspecified On: :25 Request T4, FREE (THYROXINE) (66716)Indication: Hypothyroidism, unspecified On: :25 Request T3, FREE (TRIDOTHYRONINE) (21450)Indication: Hypothyroidism, unspecified On: 14-Jul-2012 Request TSH (37716)Indication: Hypothyroidism, unspecified On: 14-Jul-2012 Request D-Dimer (39831)Indication: SOB On: 40-Peh-668872:25 Request Antiphospholipid atb (61281)Indication: Pulmonary embolism On: :12 Request Comments: IgM and igG, IgA anticardiolipin antibody i also need the Beta 2 glycoprotein anticardiolipin antibody -IgG, and IgM Protein S Profile (49150)Indication: Pulmonary embolism On: :05 Request Protein C Profile (17409)Indication: Pulmonary embolism On: : Request Homocysteine, Plasma (03652)Indication: Pulmonary embolism On: : Request ANTICOAG ANTTHROMB III & ASSAY (33756)Indication: Pulmonary embolism On: : Request ANTITHROMBIN III ACTIVTY (76561)Indication: Pulmonary embolism On: : Request CLOTTING FACTOR II (26013)Indication: Pulmonary embolism On: : Request Factor V Leiden (59989)Indication: Pulmonary embolism On: :05 Request PT (Prothrobim Time) (48236)Indication: Pulmonary embolism On: 11-Gne-220427:02 Request PT (Prothrobim Time) (10604)Indication: Pulmonary embolism On: 29-Yxf-17912:40 Request Comments: standing order TSH (53994)Indication: Anxiety On: :52 Request LIPID PANEL ([id number])Indication: Hypercholesteremia On: :52 Request VITAMIN B-12 (CYANOCOBALAMIN) ([id number])Indication: Vitamin B12 deficiency (non anemic) On: :51 Request CALCIFIDIOL ([id number]) VIT D 25Indication: Vitamin D deficiency, unspecified On: :48 Request PT (Prothrobim Time) ([id number])Indication: Pulmonary embolism On: :48 Request KATHY CULTURE-OTHER ([id number])Indication: Staphylococcal septicemia, unspecified On: :46 Request Comments: nares -both KATHY CULTURE-BLOOD ([id number])Indication: Fever, unspecified On: :42 Request PT (Prothrobim Time) ([id number])Indication: Pulmonary embolism On: :28 Request CULTURE, SPUTUM ([id number])Indication: Wheezing On: :34 Request PT (Prothrobim Time) ([id number])Indication: Pulmonary embolism On: 87-Juo-428604:29 Request PT (Prothrobim Time) ([id number])Indication: Pulmonary embolism On: 59-Dsx-873073:57 Request Comments: inr CALCIFIDIOL ([id number]) VIT D 25Indication: Fatigue On: :32 Request Folate ([id number])Indication: Fatigue On: :32 Request VITAMIN B-12 (CYANOCOBALAMIN) ([id number])Indication: Fatigue On: :32 Request TSH ([id number])Indication: Fatigue On: :32 Request SED RATE ERYTHROCYTE ([id number])Indication: Fatigue On: :32 Request RHEUMATOID FACTOR-QUANT ([id number])Indication: Fatigue On: :32 Request METABOLIC PANEL, COMPREHENSIVE ([id number])Indication: Fatigue On: :32 Request C-REACTIVE PROTEIN ([id number])Indication: Fatigue On: :32 Request CBC (AUTO) ([id number])Indication: Fatigue On: :32 Request RIKA (ANTINUCLEAR ANTIBODY) ([id number])Indication: Fatigue On: :32 Request LIPID PANEL ([id number])Indication: Hypercholesteremia On: 24-Nov-2010 Request TSH ([id number])Indication: Hypothyroidism, unspecified On: :33 Request KATHY CULTURE-OTHER ([id number])Indication: Upper respiratory infection On: :32 Request Rapid Strep Test, Office ([id number])Indication: Upper respiratory infection On: :32 Request LIPID PANEL ([id number])Indication: Hypercholesteremia On: 4-Wwp-558567:36 Request TSH ([id number])Indication: Hypothyroidism, unspecified On: 4-Inl-777644:35 Request LIPID PANEL ([id number])Indication: Hypercholesteremia On: 19-Tbu-269126:21 Request Comments: do in 4 months Glucose, PP/2 Hour ([id number])Indication: Family history of diabetes mellitus On: 58-Ljf-629725:18 Request URINALYSIS, W/ MICRO ([id number])Indication: Other abnormal finding of urine On: :02 Request TSH ([id number])Indication: Hypothyroidism, unspecified On: 52-Ghp-27536:55 Request LIPID PANEL ([id number])Indication: Hypercholesteremia On: :55 Request URINE KATHY CULTURE-JASON COL COUNT ([id number])Indication: Other abnormal finding of urine On: 59-Rwn-986001:21 Request Urinalysis, Office ([id number])Indication: Other abnormal finding of urine On: 65-Suv-569847:20 Request URINE KATHY CULTURE-JASON COL COUNT ([id number])Indication: Dysuria On: 89-Kgt-824823:35 Request LIPID PANEL ([id number])Indication: Hypercholesteremia On: 31-Neu-285256:28 Request Comments: do in 6 months TSH ([id number])Indication: Hypothyroidism, unspecified On: :51 Request LIPID PANEL ([id number])Indication: Hypothyroidism, unspecified On: :51 Request LIPID PANEL ([id number])Indication: Hyperglyceridemia On: 03-Yup-735664:26 Request Comments: DO IN 4-6 MONTHS KATHY CULTURE-OTHER ([id number])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) On: :24 Request SKIN TEST INTRADERMAL TB ([id number])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) On: :19 Request Comments: given 0.1 in left forearm LOT#[id number] exp.07/10- Metabolic Panel, Comprehensive ([id number])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) On: :19 Request ANTISTREPTOLYSIN O-SCREN ([id number])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) On: :18 Request URINALYSIS ([id number])Indication: Dysuria On: :51 Request Planned Encounters Medical; 4 Month FU - On: 07-Feb-2018 7:00 [facility] Sho Lozano DO, DO, Kathleen Planned Procedures Doppler Ultrasound OtherBy: Blake On: 02-Oct-2017 Intent Sho DAMON DO, Kathleen Comments: lower extremity CXR PA & LAT ([id number])By: Blake DAMON, On: 02-Oct-2017 Intent Sho Carvajal DO Spirometry ([id number])By: Blake DAMON, On: 02-Oct-2017 Intent Sho Carvajal DO Comments: normal with text book curves on restrictions ELECTROCARDIOGRAM, COMPLETE (ECG) On: 22-Mar-2017 Intent ([id number])By: Sho Lozano DO Comments: nsr no acute chg Sho Lozano DO CT SCAN, ABDOMEN W/O CONTRAST On: 22-Mar-2017 Intent ([id number])By: Sho Lozano DO, DO, Kathleen Wax CurettesBy: Sho Lozano DO On: 20-Nov-2016 Intent Sho Lozano DO Ear Irrigation ([id number])By: Blake On: 20-Nov-2016 Sho Orona DO, DO, Kathleen Comments: Ear Irrigation performed on:bilateralAmount/color removed cerumen: brown, moderate amountOUtcome:clear and tolerated Spirometry ([id number])By: Blake DAMON, On: 20-Nov-2016 Intent Sho Carvajal DO Comments: normal Solu- Medrol Injection, 125mg On: 20-Nov-2016 Intent ([id number])By: Sho Lozano DO Comments: lot [id number] mgright 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, 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 Sho Lozano DO Aerosol Treatment ([id number])By: Blake On: 20-Nov-2016 Sho Orona DO, DO, Kathleen Comments: no wheeze more ae CT SCAN OF NECK TISSUE WITH On: 16-Dec-2015 Intent CONTRAST ([id number])By: Sho Lozano DO, DO, Kathleen CT - Chest (IV Contrast Needed)By: On: 27-Sep-2015 Intent Elida Horton CNP Comments: STAT Venous Doppler - RightBy: Clifford On: 27-Sep-2015 Intent Elida DIAS Spirometry ([id number])By: Blake DAMON, On: 12-Apr-2015 Intent Sho Carvajal DO Comments: looks good HOME SLEEP STUDY TEST (HST) WITH On: 12-Apr-2015 Intent TYPE II PORTABLE MONITOR, UNATTENDED; MINIMUM OF 7 CHANNELS: EEG, EOG, EMG, ECG/HEART RATE, AIRFLOW, RESPIRATORY EFFORT AND OXYGEN SATURATION ([id number])By: Sho Lozano DO, DO, Kathleen ATTENDED SLEEP STUDY ([id number])By: On: 02-Dec-2014 Intent Sho Lozano DO, DO, Kathleen Aerosol Treatment ([id number])By: Blake On: 16-Nov-2014 Sho Orona DO, DO, Kathleen Comments: clear afdter treatmenet Doppler Ultrasound OtherBy: Blake On: 16-Nov-2014 Sho Orona DO, DO, Kathleen BILATERAL MAMMOGRAMS ([id number])By: On: 30-Jun-2014 Intent Sho Lozano DO, DO, Kathleen Aerosol Treatment ([id number])By: Blake On: 12-Mar-2014 Sho Orona DO, DO, Kathleen Comments: more a/e no wheeze ELECTROCARDIOGRAM, COMPLETE (ECG) On: 18-Dec-2013 Intent ([id number])By: Elida Horton CNP MAMMOGRAM, SCREENING, BOTH BREASTS On: 13-May-2013 Intent ([id number])By: Sho Lozano DO, DO, Kathleen Eprescribed prescriptions On: 30-May-2012 Intent ([id number])By: Sho Lozano DO, DO, Kathleen Eprescribed prescriptions On: 14-May-2012 Intent ([id number])By: Carmelina Newman LPN Spirometry ([id number])By: Blake DAMON, On: 18-Jan-2012 Intent Sho Carvajal DO Comments: not bad-- some technique bad related results EKG ([id number])By: Sho Lozano DO On: 18-Jan-2012 Intent Sho Lozano DO Comments: nsr no acute chg Aerosol Treatment ([id number])By: Clifford On: 03-Dec-2011 Elida Orona CNP Solu -Medrol Injection, 125 mg On: 12-Nov-2011 Intent ([id number])By: Elida Horton CNP Comments: Lot #[id number]-2.15Site-r hip, IMDose- prefilled syringegiven by:MARIAN Almazan signed Eprescribed prescriptions On: 12-Nov-2011 Intent ([id number])By: Roxie Vázquez LPN Pulse Oximetry ([id number])By: Blake On: 04-Apr-2011 Sho Orona DO, DO, Kathleen Comments: 95% CT - Chest: pe protocolBy: Blake On: 04-Apr-2011 Sho Orona DO, DO, Kathleen EKG ([id number])By: Sho Lozano DO On: 04-Apr-2011 Intent Sho Lozano DO Comments: NSR -- SMALL CONDUCTION DELAY IN INFERIOR LEADS -- WILL COMPARE- SEEMS TO BE NEW VS LEAd placemnt CT - Sinuses CompleteBy: Blake DAMON, On: 07-Feb-2011 Intent Sho Carvajal DO Radiology - Chest- PA and LatBy: On: 02-Feb-2011 Intent Sho Lozano DO, DO, Kathleen Pulse Oximetry ([id number])By: Blake On: 02-Feb-2011 Intent DOSho DO, Kathleen Aerosol Treatment ([id number])By: Blake On: 02-Feb-2011 Intent DOSho DOSho Pulse Oximetry ([id number])By: Clifford On: 29-Jan-2011 Intent ARUN Jamee Aerosol Treatment ([id number])By: Clifford On: 29-Jan-2011 Intent ARUN Jamee Eprescribed prescriptions On: 29-Jan-2011 Intent ([id number])By: Elida Horton CNP MYOCARDIAL INFARCTION EDUCATIONBy: On: 11-Jan-2011 Intent Sho Lozano DO, DO, Kathleen FLU VAC, SPLIT, >3 YEARS, INTRAMUSC On: 05-Jan-2011 Intent ([id number])By: Sho Lozano DO Comments: Lot #[id number]-6/30/12Site-left deltoidgiven by: OSCAR Kaur DO, Kathleen B 12 Injection, 1000 mcg ([id number])By: On: 05-Jan-2011 Intent Sho Lozano DO, DO, Comments: Lot #[id number]-05/14Site-right deltoidDose- 1 mlgiven by: OSCAR Kaur IMMUNIZ ADMNIN, 1 VAC, SNGL/COMBO On: 05-Jan-2011 Intent ([id number])By: Sho Lozano DO, DO, Kathleen Eprescribed prescriptions On: 05-Oct-2010 Intent ([id number])By: Sho Lozano DO, DO, Kathleen Solu -Medrol Injection, 125 mg On: 10-Jul-2010 Intent ([id number])By: Elida Horton CNP EKG ([id number])By: Sho Lozano DO On: 15-Jun-2010 Intent Sho [...] Intent (J2930)By: Jazmin Sierra DO Comments: Lot #[id number]-2/1/12Site-left hipDose- 125 mggiven by:[facility] Solu- Medrol Injection, 125mg On: 01-Nov-2009 Intent ([id number])By: Sho Lozano DO, DO, Kathleen IMMUNIZ ADMNIN, 1 VAC, SNGL/COMBO On: 29-Jul-2009 Intent ([id number])By: Sho Lozano DO, DO, Kathleen EKG ([id number])By: Sho Lozano DO On: 29-Jul-2009 Intent Sho Lozano DO Comments: nsr no acute chgs PNEUM VAC ADLT/IMUMNOSPR, SBC/INTRM On: 29-Jul-2009 Intent ([id number])By: Sho Lozano DO Comments: Lot:[id number]:34Nxz98Okjb:0.5Route:IMSite:Left Deltoid Given by: ALY Das DO, Kathleen TDAP VACCINE >7 IM ([id number])By: On: 10-Dec-2008 Intent Sho Lozano DO, DO, Comments: Lot #[id number]-sjrh deltoidgiven by:NORIS Berkowitz Solu -Medrol Injection, 125 mg On: 09-Aug-2008 Intent ([id number])By: Jazmin Sierra DO Comments: lot # [id number]- [id number]-OMLBKMhaowr-WXegly- 2ML tolerated well Ashleigh LU CT - Abdomen & Pelvis (IV Contrast On: 29-Oct-2007 Intent Needed)By: Sho Lozano DO, DO, Kathleen SPECIMEN HNDLNG/TRNSPRT, OFFC > LAB On: 22-Jan-2007 Intent ([id number])By: Elida Horton CNP Rocephon Injection, 2 Gm On: 22-Jan-2007 Intent ([id number])By: Rebekah Tian LPN Comments: given by Dr. Lozano lot [id number] exp 05-10, IV flushed with 0.5cc before and after iv med with 0.9% sodium chloride. IV Infusion ([id number])By: Asmita, On: 22-Jan-2007 Intent Rebekah MOORE IV Infusion ([id number])By: Asmita, On: 21-Jan-2007 Intent Rebekah MOORE Comments: 2g given trough IV by Constance Fields lot [id number] exp 05-10 iv flushed with 0.9% sodum chloride 0.5cc before and after. Venous Doppler - RightBy: Clifford On: 20-Jan-2007 Intent Elida DIAS Comments: Rt lower ext doppler am SOLOMON INFUSION, NORMAL SALINE SOLUTION , On: 20-Jan-2007 Intent 250 CC ([id number])By: Elida Horton CNP THER/PROPH/DIAG IV INF, INIT On: 20-Jan-2007 Intent ([id number])By: Elida Horton CNP Comments: #22 gauge needle placed to right forearm per erussell without difficulty Rocephin Injection, 2 Gram On: 20-Jan-2007 Intent ([id number])By: Elida Horton CNP Comments: Lot # [id number] exp 05-10 per erussell Toradol Injection, 30 mg On: 13-Dec-2006 Intent (J1885)By: Sho Lozano DO Comments: given in left hip, 1cc, lot#[id number], exp.01.09, [place] Sho Lozano DO Planned Medications INJECTION, METHYLPREDNISOLONE [...] and cardiovascular di End: 21-Jan-2009 15:39 sease (Neo. ) , while there is no family [...] leg swelling was placed on cipro Jan 15,,. The swelling of rt leg and pain [...]
--- OUTSIDE RECORDS SUMMARY | 2018-05-28 06:40 | XMS RPT_ITS | Continuity of Care Document ---
:1970 Author Organization [facility] Address [address] [facility] [address] [place] [address] Phone Care Team Providers Name Role Phone Sho Lozano DO Unavailable Brooklynn RODRIGUES, Dr. Jacinto Corrales Unavailable MD Chandler, Stan Unavailable Raymundo Ordonez MD Unavailable John ChristianShabnamSharri Dami Unavailable Unavailable Elías, Fatmata Unavailable Unavailable TOMY TianN Rebekah Unavailable Unavailable [...] NOS Comments: Lt, first metatarsophalangeal 09/05, rt. 02/05 Dr. Mcgrath Status: Active Asplenia syndrome (759.0) [...] 786.2) Status: Active COUGH, NOS (R05, 786.2) -Jan-2011 Status: Active Cough, persistent (R05, 786.2) Comments: [...] Status: Active Fever (R50.9, 780.60) Status: Active GERD (gastroesophageal reflux [...] Active Hypothyroidism, unspecified (E03.9, 244.9) Status: Active Influenza vaccination declined (Renamed from Refused influenza vaccine) (Z28.21, V64.06) Status: Active Ischemic stroke of frontal lobe (I63.9, 434.91) Comments: asa plu plavix Status: Active Migraine, unspecified, not intractable, without [...] Diagnosis Status: Active Unspecified Diagnosis Status: Active Urinary frequency (R35.0, 788.41) Status: Active UTI (urinary tract infection) (N39.0, 599.0) Status: Active Ventral hernia without obstruction or gangrene (K43.9, 553.20) Status: Active Viral URI (J06.9, 465.9) Status: Active Vitamin D deficiency, unspecified (E55.9, 268.9) Status: Active Wheezing (R06.2, 786.07) 03-Dec-2011 Comments: elev hob helped and behavior modific [...] Ordered:11-Feb-2018 Baldemar Echols Start : 11-Feb-2018 Active Montelukast Sodium 10 MG Oral Tablet [...] Kathleen Start : 13-Jan-2018 Active VITAMIN D3, 56695LWMO (Oral Capsule) 1 Capsule 2 x week [...] Quantity: 14 {QS} Refills: 0 Ordered:27-Sep-2015 Clifford DIASElida Start : 27-Sep-2015 End : 04-Oct-2015 Inactive [...] days Quantity: 20 {Capsule} Refills: 0 Ordered:16-Nov-2014 Trent MOORE Carmelina L Start : 05-May-2014 End : 16-Nov-2014 Inactive [...] : 22-Mar-2010 End : 22-May-2010 Inactive NYSTATIN, 283583MXOS/GM (External Powder) Powder TID/PRN to affected area [...] Quantity: 21 {Tablet} Refills: 0 Ordered:12-Nov-2011 Clifford DIASElida E Start : 12-Nov-2011 End : 19-Nov-2011 Inactive [...] days Quantity: 10 {Tablet} Refills: 0 Ordered:04-Feb-2007 eRbekah Tian LPN Start : 22-Jan-2007 End : [...] Start : 02-Oct-2017 End : 09-Oct-2017 Discontinued MetFORMIN HCl ER 500 MG Oral Tablet Extended Release 24 Hour 1 (one) Tablet qd for 30 days Quantity: 30 {Tablet} Refills: 3 Ordered:14-Feb-2018 Fatmata Mckinley Start : 16-Jul-2017 End : 14-Feb-2018 Discontinued PREDNISONE, 20MG (Oral Tablet) tad Tablet [...] chills (R50.9, 780.60) Status: Resolved as of 14-Feb-2018 Fever and chills (R50.9, 780.60) Status: Resolved [...] removalR knee Status: Inactive as of 16-Aug-2008 LLQ abdominal pain (R10.32, 789.04) Status: Resolved as of 14-Feb-2018 Lymphadenopathy, cervical (R59.0, 785.6) Status: Resolved as of 14-Feb-2018 Medication side effect (T88.7XXA, 995.20) Comments: inhalers [...] NEC (482.49) Status: Resolved as of 14-May-2012 Poison juan (L23.7, 692.6) 10-Jul-2010 Status: Resolved as of 09-Apr-2011 poison ujan Status: Inactive as of 16-Aug-2008 Pulmonary embolism (I26.99, 415.19) Status: Resolved as [...] Lower Extremity Result: Comments: See Note; NOTES: [facility] Cardiovascular Services [address] [place] [address] Venous Duplex US, Unilateral 12/04/17 1529 MR#: [id number] Acct: [id number] Name: MARIAELENA ALMEIDA Rep #: [id number] : 1970 47 From: Gerard Ford MD Attending Dr: John MD,Eric Status: REG CLI Ordering Dr: Eric John MD Date: 12/04/17 Location: [facility] Sex: F C Admitted : Reason For [...] Lozano Performed By: Yuliya Washington, IRVIN, RVT 12/06/17 2125 Date Gerard Ford MD CC: Sho Lozano DO; Eric John MD Date Dictated: 12/04/17 1529 Date Transcri bed: 12/06/172124 Net Trainer: Signed 11-Nov-2017 Discharge Instruction Result: Comments: See Note; NOTES: [facility] Medical Records Department [address] [facility] [place] [address] Discharge Instruction 11/11/172211 MR#: [id number] Acct: [id number] Name: MARIAELENA POTTER Rep #: [id number] : 1970 47 From: Indio Chisholm DO [...] your Primary Care Provider. Call [facility] ([phone]) or report to the closest Emergency Room. Call 911 if necessary. 11/11/172212 <Electronically signed by Indio Chisholm DO> Date Indio Chisholm DO Cosigner Signature (If Indicated): Date CC: Sho Lozano DO 11-Nov-2017 Emergency Department Summary Result: Comments: See Note; NOTES: [facility] Medical Records Department [address] [place] [address] Emergency Department Summary 11/11/17 2209 MR#: [id number] Acct: [id number] Name: MARIAELENA FORMAN Rep #: [id number] : 1970 47 From: Indio Chisholm DO [...] reveal some ecchymosis and bruising over the lianet bryant aspect of the third MCP joint. [...] contusion] This note w as generated with [employer] software. It may contain incorrect words, spelling, [...] your Primary Care Provider. Call [facility] ([phone]) or report to the closest Emergency Room. Call 911 if necessary. 11/11/17 2211 & amp;#60;Electronically signed by Indio Chisholm DO> Date Indio Chisholm DO Cosigner Signature (If Indicated): Date CC: Sho Lozano DO 11-Nov-2017 Knee 3 Views Result: Comments: See Note; NOTES: [facility] Imaging Services [address] [place] [address] Knee 3 Views MR#: [id number] Acct: [id number] Name: MARIAELENA FORMAN Rep #: [id number] : 1970 F 47 From: Olena Gilman MD PCP: Sho Lozano DO Status: REG ER Study: Knee 3 Views Date of Exam: 11/11/17 Exam# [id number] Ordering Dr: Indio Chisholm DO STUDY: X-RAY [...] CC: Sho Lozano DO; Indio Chisholm DO Net Trainer: Signed 11-Nov-2017 Hand Min 3 Views Result: Comments: See Note; NOTES: [facility] Imaging Services [address] [place] [address] Hand Min 3 Views MR#: [id number] Acct: [id number] Name: MARIAELENA FORMAN Rep #: [id number] : 1970 F 47 From: Olena Gilman MD PCP: Sho Lozano DO Status: REG ER Study: Hand Min 3 Views Date of Exam: 11/11/17 Exam# [id number] Ordering Dr: Indio Chisholm DO STUDY: X-RAY - LE FT HAND REASON FOR EXAM: Female, 47 years old. Fall. Pain around second MCP joint. TECHNIQUE: 3 view(s) of the hand. COMPARISON: None. FINDINGS: Slight limitation due to ring on the fourth digit. There is no fracture or dislocation. Joint spaces are well-maintained. Soft tissues and bony structures are unremarkable. ORDER # : [id number] RAD/Hand Min 3 Views IMPRESSION: Normal x-ray examination of the hand. Electronically Signed: Olena Gilman MD at 21:55 EDT Tel , Service support , F ax [phone] CC: Sho Lozano DO; Indio Chisholm DO Net Trainer: Signed 11-Nov-2017 Knee 3 Views Result: Comments: See Note; NOTES: [facility] Imaging Services [address] [place] [address] Knee 3 Views MR#: [id number] Acct: [id number] Name: MARIAELENA FORMAN Rep #: [id number] : 1970 F 47 From: Olena Gilman MD PCP: Sho Lozano DO Status: REG ER Study: Knee 3 Views Date of Exam: 11/11/17 Exam# [id number] Ordering Dr: Indio Chisholm DO STUDY: X-RAY [...] CC: Sho Lozano DO; Indio Chisholm DO Net Trainer: Signed 31-Oct-2017 Operative Report Result: Comments: See Note; NOTES: [facility] Medical Records Department [address] [place] [address] Operative Report 10/31/17 1552 MR#: [id number] Acct: [id number] Name: MARIAELENA FORMAN Rep #: [id number] : 1970 47 From: Cathleen Fields MD PCP: Sho Lozano DO Status: REG SDC Y Location: [place] [address] Report of Operation Date of Procedure: 10/31/17 [...] Normal-appearing cervix, vag isha and endocervical canal. commercial construction project manager: Shabnam Cuadra MS3 Type of Anesthesia:: General [...] Discharge Instruction Result: Comments: See Note; NOTES: [facility] Medical Records Department [address] [place] [address] Instructions for Home/Discharge Instructions 10/31/17 1551 MR#: [id number] Acct: [id number] Name: MARIAELENA FORMAN Rep #: [id number] : 1970 47 From: Cathleen Fields MD PCP: Sho Lozano DO Status: REG [facility] Discharge Diet: No Restrictions Discharge Activity: Return [...] w Up With: Cathleen Fields MD - [phone] When: Dr. Fields's office 2-4 weeks or as needed 10/31/17 2192 <Electronically signed by Cathleen Fields MD> Date Cathleen Fields MD CC: Sho Lozano DO 02-Oct-2017 Venous Duplex Lower Extremity Result: Comments: See Note; NOTES: [facility] Cardiovascular Services [address] [place] [address] Venous Duplex US - Panda Extrem 10/02/17 1307 MR#: [id number] Acct: [id number] Name: MARIAELENA FORMAN Rep #: [id number] : 1970 47 From: Gerard Ford MD Attending Dr: Sho Lozano DO Status: REG CLI Ordering Dr: Sho Lozano DO Date: 10/02/17 Location: [facility] Sex: F C Ad mitted: Reason For [...] Dictated: 10/02/17 1307 Date Transcribed: 10/02/17 1508 Net Trainer: Signed 02-Oct-2017 Chest PA and Lateral Result: Comments: See Note; NOTES: [facility] Imaging Services [address] [place] [address] Chest PA and Lateral MR#: [id number] Acct: [id number] Name: MARIAELENA FORMAN Saray Rep #: : 1970 F 47 From: Arthur Sandhu MD PCP: Sho Lozano DO Status: REG CLI Study: Chest PA and Lateral Date of Exam: 10/02/17 Exam# [id number] Ordering Dr: Sho Lozano DO STUDY: X-RAY [...] Service support , CC: Sho Lozano DO Net Trainer: Signed 28-Mar-2017 Abdomen/Pelvis WITH Contrast Result: Comments: See Note; NOTES: [facility] Imaging Services [address] [place] [address] Abdomen/Pelvis WITH Contrast MR#: [id number] Acct: [id number] Name: MARIAELENA FORMAN ep #: [id number] : 1970 F 46 From: Emre Tan MD PCP: Sho Lozano DO Status: REG CLI Study: Abdomen/Pelvis WITH Contrast Date of Exam: 03/28/17 Exam# [id number] Ordering Dr: Sho Lozano DO STUDY: CT [...] Emre Tan MD at 10:10 EST Tel [phone], Service support , CC: Sho Lozano DO Net Trainer: Signed 29-Jul-2016 Brain/Head without Contrast Result: Comments: See Note; NOTES: [facility] Imaging Services [address] [place] [address] Verdana 4d Brain/Head without Contrast MR#: [id number] Acct: [id number] Name: MARIAELENA FORMAN Rep #: [id number] : 1970 F 45 From: Meme Tolliver MD PCP: Sho Lozano DO Status: REG ER Study: Brain/Head without Contrast Date of Exam: 07/29/16 Exam# [id number] Ordering Dr: Edu Love MD STUDY: CT [...] CC: Sho Lozano DO; Edu Love MD Net Trainer: Signed 27-Sep-2015 CTA Chest W/WO Contrast Result: Comments: See Note; NOTES: [facility] Imaging Services [address] [place] [address] Verdana 4d CTA Chest W/WO Contrast MR#: [id number] Acct: [id number] Name: MARIAELENA HAMEED Rep #: [id number] : 1970 F 45 From: Geronimo Vallejo DO PCP: Sho Lozano DO Status: REG CLI Study: CTA Chest W/WO Contrast Date of Exam: 09/27/15 Exam# [id number] Ordering Dr: Ranjeet Newman STUDY: CTA CHEST [...] Geronimo Vallejo DO at 18:56 EDT Tel [phone], Service support [phone], CC: Sho Lozano DO; Ranjeet Newman Net Trainer: Signed 27-Sep-2015 Venous Duplex Lower Extremity Result: Comments: See Note; NOTES: [facility] Cardiovascular Services [address] [place] [address] Venous Duplex US, Unilateral 09/27/15 1544 MR#: [id number] Acct: [id number] Name: BREEZY MORTONMARIAELENA L Rep #: [id number] : 1970 45 From: Gerard Ford MD [...] Date Dictated: 09/27/15 1544 Date Transcribed: 09/27/15 0114 Net Trainer: Signed 20-Jun-2015 Sleep Study Report Result: Comments: See Note; NOTES: [facility] [address] [place] [address] Polysomnography with NCPAP MR#: [id number] Acct: [id number] Name: MARIAELENA POTTER Rep #: [id number] : 1970 44 From: Art Arevalo MD PCP: Sho Lozano DO Status: REG CLI Ordering Dr.: Jennifer Willams MD Date: 06/14/15 Sex: F C DATE OF SERVICE: 06/14/19 16 SCORING RULES: Respiratory events were acquired and scored in accordance with the Recommended Standards and Specifications as outlined in the AASM Manual for the Scoring of Sleep and Associated E vents ( most recent version). Please note that a reference to [facility] AHI in this report is consistent with the current Hypopnea definition according to Medicare Criteria and an [facility] AHI reference is consi stent with the current Hypopnea definition according to the AASM criteria and is recognized by [facility] as the RDI. PROCEDURE: The study was attended continuously by a facility environmental technician. Monitored paramet ers included left and [...] calculated body mass index of 50.1 and Lincoln Sleepiness Scale score of 11/24. The patient [...] M.D. Art Arevalo MD T: MIGUEL JOB: [id number] CC: Art hutchins MD 1729 06/20/15 1556 <Electronically signed by Art Arevalo MD> Date Art Arevalo MD Co-si gnature (if applicable) Date Signed 20-May-2015 Operative Report Result: Comments: See Note; NOTES: [facility] Medical Records Department [address] [facility] [place] [address] Operative Report MR#: [id number] Acct: [id number] Name: MARIAELENA FORMAN Rep #: [id number] : 1970 44 From: Raymundo Ordonez MD [...] cecum and ileocecal valve area was achieved. [place] el prep was adequate. There was still [...] Raymundo Ordonez MD T: NT S JOB: [id number] 05/20/15 0555 <Electronically signed by Raymundo Ordonez MD> Date Raymundo Ordonez MD Cosigner Signature (If Indicat ed): Date CC: Sho Lozano DO; Raymundo Ordonez MD Date Dictated: 05/19/15 1008 Date Transcribed: 05/19/15 1008 Net Trainer: Signed 13-May-2015 Sleep Study Report Result: Comments: See Note; NOTES: [facility] [address] [place] [address] Unattended Sleep Study MR#: [id number] Acct: [id number] Name: MARIAELENA FORMAN Rep #: [id number] : 1970 44 From: Silverio Nolen MD [...] version). Please note that a reference to [facility] AHI in this report is consistent with the current Hypopnea definition according to Medicare Criteria and an AASM AHI reference is cons istent with the current Hypopnea definition according to the AASM criteria and is recognized by [facility] as the RDI. PROCEDURE: The study was unattended in the patient's home setting. Monitored parameter s included airflow with nasal pressure transducer, chest and abdominal plethysmography efforts, and oxygen saturation with heart rate. INTRODUCTION: This is an ApneaLink apnea screening study perfo rmed on this 44-year-old female with a history of asthma, gastroesophageal reflux disease, hypothyroidism, and an Lincoln Sleepiness Scale score of 11 as well [...] abnormal ApneaLink screening study consist ent with htcp-rr-wsguvhxy obstructive sleep apnea. If this is felt to be clinically significant, formal CPAP titration study should be performed. Silverio Nolen MD T: [facility] JOB: [id number] CC: Silverio Nolen MD 1133 1133 05/13/15 1517 <Electronically signed by Silverio Nolen MD> Date Silverio mcclure MD Co-signature (if applicable) Date Signed 18-Apr-2015 Emergency Department Summary Result: Comments: See Note; NOTES: [facility] Medical Records Department [address] [facility] [place] [address] Emergency Department Summary MR#: [id number] Acct: [id number] Name: BREEZY MORTONMARIAELENA L Rep #: [id number] : 1970 44 From: Jesse Barrera MD PCP: Sho Lozano DO Status: DEP ER DATE OF SERVICE: 04/08/2015 CHIEF COMPLAINT: Chest pain. HISTORY OF NV ESENT ILLNESS: This is a 44-year-old female [...] Jesse Barrera MD T: NTS JOB : [id number] 04/18/15 0309 <Electronically signed by Jesse Barrera MD> Date Jesse Barrera MD Cosigner Signature (If Indicated): D ate CC: Sho Lozano DO Date Dictated: 04/08/151722 Date Transcribed: 04/08/151722 Net Trainer: Signed 12-Apr-2015 12 Lead Electrocardiogram Result: Comments: See Note; NOTES: [facility] Cardiovascular Services [address] [place] [address] 12 Lead EKG 04/08/15 1608 MR#: [id number] Acct: [id number] Name: MARIAELENA ARROYO Rep #: [id number] : 1970 44 From: Tommie Luciano MD [...] ECG Confirmed by WISAM RODRIGUES, TOMMIE ([id number]), fan mail editor PERCY JOHN ([id number]) on 04/12/2015 8:32:04 AM Referred By: SOUTH Confirmed By:TOMMIE LUCIANO MD 04/12/15 0832 Date Tommie Luciano MD CC: Sho Lozano DO Date Dictated: 04/08/151607 Date Transcribed: 04/08/151607 Net Trainer: Signed 12-Apr-2015 12 Lead Electrocardiogram Result: Comments: See Note; NOTES: [facility] Cardiovascular Services [address] [place] [address] 12 Lead EKG 04/08/15 1715 MR#: [id number] Acct: [id number] Name: VINOD Jayson JAYSONLIANETMARIAELENA L Rep #: [id number] : 1970 44 From: Tommie Luciano MD [...] l sinus rhythm Normal ECG Confirmed by WISAM RODRIGUES, TOMMIE ([id number]), fan mail editor PERCY JOHN (56) on 04/12/2015 8:32:21 AM Referred By: CAL Confirmed By:TOMMIE LUCIANO MD 04/12/15 0832 Date Tommie Luciano MD CC: Sho Lozano DO Date Dictated: 04/08/151714 Date Transcribed: 04/08/151714 Net Trainer: Signed 08-Apr-2015 Discharge Instruction Result: Comments: See Note; NOTES: [facility] Medical Records Department [address] [place] [address] Discharge Instruction 04/08/151722 MR#: [id number] Acct: [id number] Name: MARIAELENA FORMAN Saray Rep #: [id number] : 1970 44 From: Jesse Barrera MD PCP: Sho Lozano DO Status: REG ER ED Disposition - Plan for ED Patient: Chief Complaint: Chest Lulu n Instructions: ED Chest Pain, Noncardiac What to do if you have Problems For any increased pain, shortness of breath, bleeding, nausea or vomiting, chest pain, or any unexpected problems, conta ct your doctor. Call [facility] ([phone]) or report to the closest Emergency Room. Call 911 if necessary. 04/08/151723 <Electronically signed by Jesse Barrera MD> Da te Jesse Barrera MD Cosigner Signature (If Indicated): Date CC: Sho Lozano DO 08-Apr-2015 Chest PA and Lateral Result: Comments: See Note; NOTES: [facility] Imaging Services [address] [place] [address] Stephendaroldan 4d Chest PA and Lateral MR#: [id number] Acct: [id number] Name: MARIAELENA FORMAN Rep #: [id number] : 1970 F 44 From: Darryl Murphy MD PCP: Sho Lozano DO Status: REG ER Study: Chest PA and Lateral Date of Exam: 04/08/15 Exam# [id number] Ordering Dr: Jesse Orona MD STUDY: X-RAY [...] MD at 17:26 EST , Service support [phone], RAD/Chest PA and Lateral IMPRESSION: No acute cardiopulmonary pathology Electronically Signed: Darryl Murphy MD at 17:26 EST Tel , Service support [phone], CC: Jesse Barrera MD; Sho Lozano DO Net Trainer: Signed 16-Nov-2014 Spirometry (17640) Comments: ok stable Result: 16-Nov-2014 ELECTROCARDIOGRAM, COMPLETE (ECG) (13644) Comments: nsr no acute chg Result: [MEASUREMENTS ANALYSIS] Date of Test: 11/16/2014 14:41:53; Heart Rate: 66; NV Interval: 190; QRS: 110; QT Interval: 434; Corrected QT Interval (QTc): 444; P Wave [place]: 23; QRS Wave [place]: 10; T Wave [place] : 21; Blood Pressure: 140/76 [ECG DIAGNOSTIC STATEMENTS] Date of Test: 11/16/2014 14:41:53; Summary: Sinus Rhythm -Nonspecific QRS widening. BORDERLINE 12-Mar-2014 Spirometry (46935) Comments: obssturctuce Result: Immunization Name Dates Details Tdap (7 years and up) on: 10-Dec-2008 Comments: Lot #[id number] deltoidgiven by:CDH Family History Unknown Family Member Name Dates Details Father Comments: ETOH, Depression Status: Active Maternal Grandfather Comments: age 62, Brain tumor, ETOH Status: Active Maternal Grandmother Comments: Liver, colon CA, age 60 Status: Active Mother Comments: HTN, Hyperlipidemia, OBesity, Breast CA, Melanoma Status: Active Social History Name Dates Details Current Work/Study Status Comments: 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 Status: Active Tobacco use: Never smoker. Comments: radha mullins 5.3.12 Status: Inactive Smoking Status Name Dates Details Never smoker Vital Signs Date Test Result Details 27-Wcp-138748:25 Temperature 98.1 f Comments: Method: Temporal Pulse 68 /min Comments: Pattern: Regular Respiration Rate 16 /min Comments: Pattern: Unlabored O2 SAT 96 % Comments: Room air BP Systolic 124 mm[Hg] Comments: Patient Position: Sitting; Cuff Location: Left Arm; Cuff Size: Standard BP Diastolic 82 mm[Hg] Comments: Patient Position: Sitting; Cuff Location: Left Arm; Cuff Size: Standard Weight 405 lb Height 72 in Body Mass Index Calculated 54.93 kg/m2 Body Surface Area Calculated 2.88 m2 :20 Pulse 73 /min Comments: Pattern: Regular Respiration [...] kg/m2 Body Surface Area Calculated 2.91 m2 :03 Pulse 86 /min Comments: Pattern: Regular O2 [...] 0.00 cm Results Date Description Value Details :08 Urinalysis, Office (72163) UA - LEUKOCYTE ESTERASE Negative (Normal) UA - NITRITE Negative (Normal) URINE UROBILINGN JASON TIMED 2 mg/dL (Normal) UA - PROTEIN Negative mg/dL (Normal) UA - PH 6.0 (Normal) UA - BLOOD Negative (Normal) UA - SPECIFIC GRAVITY 1.015 (Normal) UA - KETONES Negative mg/dL (Normal) UA - BILIRUBIN Negative (Normal) UA - GLUCOSE Negative (Normal) :02 HgA1C , Office (27996) HgA1C , Office 6.1 % (Normal) Range: 4.6 - 7.1 :02 Blood Glucose , Office (73904) Blood Glucose , Office 96 (Normal) 4-Ssr-932918:39 Crystals, Body Fluid Comments: [facility] [address] [place], [address] PATH REV Reviewed (Normal) Comments: Negative for malignant cells and crystals.Bloody specimen.Graham Velez M.D. 12/05/17 AMENDED REPORT 12/05/17 1337 PATH REV previously reported as: Will follow SOURCE/BF SYNOVIAL (Normal) CRYSTALS/BF SEE PATH REV (Normal) 4-Ney-316973:39 Culture, Body Fluid Comments: [facility] [address] [place], [place], [id number] CUBF See Note (Normal) Comments: RESULTS CALLED TO DR JOHN 12/04/17 192 Gokul Boo. REPORT READ BACK BY DR JOHN. List Antibiotics Last 48 Hours? UNKList Antibiotics to be Started? UNKGram StainGram Stain 4+ Gram positive diplococci 9-Pek-383829:39 Culture, Body Fluid Comments: [facility] [address] [place], [address] CUBF See Note (Normal) Comments: AMENDED Results called on 12/05/17 by TED COFFMAN AT [place] [address] .List Antibiotics Last 48 Hours? UNKList Antibiotics to be Started? UNKGram StainCentrifuged Specimen? Culture performed on centrifuged specimen Gram Stain 4+ Red Blood Cells Rare White Blood Cells No organisms seen Body Fluid CultCulture exhibits no growth. Cult, AnaerobicNo growth in 5 days. 2-Rgq-786506:39 Synovial Fluid RBC, WBC AND Comments: [facility] [address] [facility] [address] [place], [place], [address] Diff PATH COM/SYFL May follow (Normal) OTHER [...] (Normal) : ENDOMETRIAL See Note (Normal) Comments: [facility] [address] [facility] [address] [place], [place], [address] 00 BX/CURETTINGS Comments: Patient: MARIAELENA FORMAN : 1970 (47/F) Acct Num: [id number] Phys: Donnie RODRIGUES,Cathleen Unit Num: [id number] Loc: [facility] Specimen: [id number] Received: 11/01/17 - 1002 Spec T ype: [...] one cassette. / AM:nancy 11/01/17 TC:5 CPT: 38374 HEADER OPERATION: Hysteroscopy, D AND C, resection, Symphion PRE-OP DIAGNOSIS: Postmenopausal bleeding, thickened endometrium TISSUE SUBMITTED: Endometrial curettings MICROSCOPIC DESCRIPTION Slides are reviewed. MICROSCOPIC DIAGNOSIS Endometrial curettings: Mildly disordered proliferative endometrium. Fragments of myometrium. SJ:nancy 11/05/17 Signed Graham Velez 11/05/17 <signature on file> 69-Zwf-413533:30 Type AND Screen Comments: Reason for Type AND Screen/Red Cells: [facility] [address] [place], [address] Antibody Screen NEGATIVE (Normal) BLOOD TYPE GEL B POSITIVE (Normal) 20-Wnn-916971:15 ,Urine Comments: [facility] [address] [place], [address] HCGUQUAL Negative {Negative} (Normal) Comments: Very dilute urine specimens, as indicated by a low specificgravity, may not contain customer solutions representative levels of hCG.If is still suspected, a first morning urinespecimen should be collected 48 hours later and tested. 7-Jif-271766:34 CBC With Differential/Platelet Comments: PATIENT WAS FASTINGPERFORMED BY: [facility] [address] [id number] BY: CB [facility] Mruxdr9993 [facility] [id number] Immature Grans (Abs) 0.0 {x10E3/uL} (Normal) Range: [...] 3.77-5.28 WBC 7.2 {x10E3/uL} (Normal) Range: 3.4-10.8 6-Xnv-886976:34 Comp. Metabolic Panel Comments: PATIENT WAS FASTINGPERFORMED BY: [facility] [address] [id number] BY: [facility] [address] [id number] (14) ALT (SGPT) 39 [iU]/L (Abnormal) Range: [...] 6-24 Glucose 96 mg/dL (Normal) Range: 65-99 7-Yox-129131:34 NMR LipoProfile Comments: PATIENT WAS FASTINGPERFORMED BY: BN [facility] Uoenwxessu8317 [facility] [id number] BY: CB [facility] Lufkbh7193 [facility] [id number] LP-IR Score 87 (Abnormal) Comments: INSULIN RESISTANCE MARKER <--Insulin Sensitive Insulin Resistant--> Percentile in Reference PopulationInsulin Resistance ScoreLP-IR Score Low 25th 50th 75th High <27 27 45 63 >63LP-IR Score is inaccurate if patient is non-fasting. .The LP-IR score is a laboratory developed i [facility] that has beenassociated with insulin resistance and [...] were developed and their performance characteristicsdetermined by [employer]. These assays have not been cleared by [...] 2.270 {uIU/mL} Comments: PATIENT WAS FASTINGPERFORMED BY: [employer] [id number] BY: [employer]70 [facility] [place] [id number] 11:34 (Normal) Range: 0.450-4.500 03-Oct-2017 Vitamin D, 25-Hydroxy 15.4 ng/mL Comments: PATIENT WAS FASTINGPERFORMED BY: [employer] [id number] BY: [employer]70 [facility] [place] [id number] 11:34 (Abnormal) Range: 30.0-100.0 Comments: Vitamin D deficiency has been defined by the [place] ofMedicine and an Endocrine Society practice guideline as alevel of serum 25-OH vitamin D less than 20 ng/mL (1,2).The Endocrine Society went on to further define vitamin Dinsufficiency as a level between 21 and 29 ng/mL (2).1. IOM ([place] of Medicine). 2010. Dietary reference intakes for calcium and D. [place]: The National Academies Press.2. Sharon MF, Adarsh MAGANA, Lisa SANDERSON, et al. Evaluation, treatment, and prevention of vitamin D deficiency: an Endocrine Society clinical practice guideline. JCEM. 2010; 96(7):1911-30. 3-Euc-156670:34 Microscopic Examination Comments: PATIENT NOT FASTINGPERFORMED BY: [employer] [place] [id number] Bacteria None seen (Normal) Mucus Threads Present (Normal) Epithelial Cells (non renal) 0-10 {/hpf} (Normal) Range: 0 - 10 RBC 0-2 {/hpf} (Normal) Range: 0 - 2 WBC 0-5 {/hpf} (Normal) Range: 0 - 5 6-Gju-051378:34 URINALYSIS, W/ MICRO Comments: PATIENT NOT FASTINGPERFORMED BY: [employer]6370 [facility]Cal[facility] [id number] Information: [id number] (38735) Microscopic Examination See below: (Normal) Comments: Microscopic was indicated and was performed. Nitrite, Urine Negative (Normal) Urobilinogen,Semi-Qn 0.2 mg/dL (Normal) Range: 0.2-1.0 Bilirubin Negative (Normal) Occult Blood Negative (Normal) Ketones Negative (Normal) Glucose Negative (Normal) Protein Negative (Normal) WBC Esterase Trace (Abnormal) Appearance Clear (Normal) Urine-Color Yellow (Normal) pH 7.0 (Normal) Range: 5.0-7.5 Specific Skand[place] 1.012 (Normal) Range: 1.005-1.030 8-Xdk-983084:34 MICROALBUMIN: CREATININE RATIO Comments: PATIENT NOT FASTINGPERFORMED BY: [employer] [place] [id number] (27765) AND (41241) Alb/Creat Ratio <10.6 {mg/g_creat} (Normal) Range: 0.0-30.0 Albumin, Urine <3.0 ug/mL (Normal) Creatinine, Urine 28.2 mg/dL (Normal) 7-Udq-795198:17 HgA1C , Office (31921) HgA1C , Office 6.0 % (Normal) Range: 4.6 - 7.1 4-Nom-545546:17 Blood Glucose , Office (17005) Blood Glucose , Office 106 (Normal) 49-Jno-430642:06 URINE KATHY CULTURE-IDENTIFICATN Comments: PATIENT NOT FASTINGPERFORMED BY: [facility] Control4 [facility] [id number] Information: SRC: ([id number]) Result 1 BETAGB (Abnormal) Comments: Beta hemolytic [...] (CLSI 2011) Urine Final report (Abnormal) Culture,Comprehensive 36-Flk-156827:07 Urinalysis, Office (72961) UA - LEUKOCYTE ESTERASE Negative (Normal) UA - NITRITE Negative (Normal) URINE UROBILINGN JASON TIMED 2 mg/dL (Normal) UA - PROTEIN Negative mg/dL (Normal) UA - PH 7.5 (Normal) UA - BLOOD Negative (Normal) UA - SPECIFIC GRAVITY 1.015 (Normal) UA - KETONES Negative mg/dL (Normal) UA - BILIRUBIN Negative (Normal) UA - GLUCOSE Negative (Normal) 8-Bcr-637752:26 HEPATITIS PANEL (66639) Comments: PATIENT NOT FASTINGPERFORMED BY: [facility] Fqeeof3134 [facility] [id number] Hep C Virus Ab 0.1 {s/co_ratio} (Normal) Range: 0.0-0.9 Comments: Negative: < 0.8 Indeterminate: 0.8 - 0.9 Positive: > 0.9 . The CDC recommends that a positive HCV antibody result be followed up with a HCV Nucleic Acid Amplification test (106126). Hep B Core Ab, IgM Negative (Normal) HBsAg Screen Negative (Normal) Hep A Ab, IgM Negative (Normal) 0-Xae-629187:26 ANTIMITOCHONDRIAL ANTIBODY Comments: PATIENT NOT FASTINGPERFORMED BY: [facility] [place] 5950470 [facility] [id number] (77999) Mitochondrial (M2) Antibody <20.0 {Units} (Normal) Range: 0.0-20.0 Comments: Negative 0.0 - 20.0 Equivocal 20.1 - 24.9 Positive >24.9 . Mitochondrial (M2) Antibodies are found in 90-96% of patients with primary biliary cirrhosis. 6-Bgd-795168:26 TRANSFERRIN (85926) Comments: PATIENT NOT FASTINGPERFORMED BY: [facility]6370 [facility] [id number] Transferrin 310 mg/dL (Normal) Range: 200-370 6-Npw-966888:26 GGT (GAMMA GLUTAMYLTRANSFERASE) Comments: PATIENT NOT FASTINGPERFORMED BY: PushforRiverview Medical CenterEchrra1235 [facility] [id number] (06494) GGT 40 [iU]/L (Normal) Range: 0-60 9-Xxw-024540:26 FERRITIN (61647) Comments: PATIENT NOT FASTINGPERFORMED BY: Patch of LandCoRiverview Medical CenterSxqzvc[address] [place] [address] [id number] Ferritin, Serum 55 ng/mL (Normal) Range: 15-150 1-Cni-163222:26 CMV IGM ANTBDY (44606) Comments: PATIENT NOT FASTINGPERFORMED BY: Patch [employer] LandCo Yfvjdx2309 [facility] [id number] Cytomegalovirus (CMV) Ab, IgM <30.0 AU/mL (Normal) Range: 0.0-29.9 Comments: Negative <30.0 Equivocal 30.0 - 34.9 Positive >34.9 A positive result is generally indicative of acute infection, reactivation or persistent IgM production. 7-Mdl-292451:26 CERULOPLASMIN (00449) Comments: PATIENT NOT FASTINGPERFORMED BY: [facility]6370 [facility] [id number] Ceruloplasmin 35.3 mg/dL (Normal) Range: 19.0-39.0 :26 ASM (ANTI SMOOTH MUSCLE Comments: PATIENT NOT FASTINGPERFORMED BY: [place] 0618470 [facility] [id number] ANTIBODY) (99243) Actin (Smooth Muscle) Antibody 8 {Units} (Normal) Range: 0-19 Comments: Negative 0 - 19 Weak positive 20 - 30 Moderate to strong positive >30 . Actin Antibodies are found in 52-85% of patients with autoimmune hepatitis or chronic active hepatitis and in 22% of patients with primary biliary cirrhosis. :26 ANTI-LIVER/KIDNEY MICROSOMAL Comments: PATIENT NOT FASTINGPERFORMED BY: [facility]6370 [facility] [id number] ANTIBODY (32853) Liver-Kidney Microsomal Ab <1.0 {Units} (Normal) Range: 0.0-20.0 Comments: Negative 0.0 - 20.0 Equivocal 20.1 - 24.9 Positive >24.9 . LKM type 1 antibodies are detected in patients with autoimmune hepatitis type 2 and in up to 8% of patients with chronic HCV infection. 2-Asu-244896:26 RIKA (ANTINUCLEAR ANTIBODY) Comments: PATIENT NOT FASTINGPERFORMED BY: [facility]6370 [facility] [id number] (08031) RIKA Direct Negative (Normal) 8-Ywa-785525:26 FQFYR-PJMHEBDGPDP-MHNVJ (47887) Comments: PATIENT NOT FASTINGPERFORMED BY: [place] 0618470 [facility] [id number] AFP, Serum, Tumor Marker 6.6 ng/mL (Normal) Range: 0.0-8.3 Comments: Jaciel ECLIA methodology 64-Gxj-908250:05 HgA1C , Office (75132) HgA1C , Office 5.8 % (Normal) Range: 4.6 - 7.1 35-Yrt-116459:07 C-REACTIVE PROTEIN (24877) Comments: PATIENT WAS FASTINGPERFORMED BY: [facility] Crrhyj7504 Diaz RoadDublin [place] [id number] C-Reactive Protein, Quant 5.0 mg/L (Abnormal) Range: 0.0-4.9 80-Qol-656188:07 VITAMIN B-12 (CYANOCOBALAMIN) Comments: PATIENT WAS FASTINGPERFORMED BY: [facility] Usareo8861 Diaz RoadDublin [place] [id number] (53940) Vitamin B12 870 pg/mL (Normal) Range: 232-1245 19-Fxm-909457:07 Sed Rate Erythrocyte (06802) Comments: PATIENT WAS FASTINGPERFORMED BY: CB [facility] Xrtdes7589 Diaz RoadDublin [place] [id number] Sedimentation Rate-Westergren 7 mm/h (Normal) Range: 0-32 98-Inm-114541:07 CALCIFIDIOL (87420) VIT D 25 Comments: PATIENT WAS FASTINGPERFORMED BY: CB [facility] Zjctqt7193 Diaz RoadDublin [place] [id number] Vitamin D, 25-Hydroxy 21.8 ng/mL (Abnormal) Range: 30.0-100.0 Comments: Vitamin D deficiency has been defined by the [place] of[place]icine and an Endocrine Society practice guideline as alevel of serum 25-OH vitamin D less than 20 ng/mL (1,2).The Endocrine Society went on to further define vitamin Dinsufficiency as a level between 21 and 29 ng/mL (2).1. IOM ([place] of Medicine). 2010. Dietary reference intakes for calcium and D. [place]: The National Academies Press.2. Sharon MF, Adarsh MAGANA, Lisa SANDERSON, et al. Evaluation, treatment, and prevention of vitamin D deficiency: an Endocrine Society clinical practice guideline. JCEM. 2010; 96(7):1911-30. 86-Vzy-503450:07 METABOLIC PANEL, COMPREHENSIVE Comments: PATIENT WAS FASTINGPERFORMED BY: [facility] Jyppid2993 Diaz RoadDublin [place] [id number] (74119) ALT (SGPT) 35 [iU]/L (Abnormal) Range: 0-32 [...] Glucose, Serum 86 mg/dL (Normal) Range: 65-99 77-Tea-923060:07 CBC W/AUTO DIFF WBC (30318) Comments: PATIENT WAS FASTINGPERFORMED BY: [facility]University [facility]6370 [facility] [id number] Immature Grans (Abs) 0.0 {x10E3/uL} (Normal) Range: [...] 3.77-5.28 WBC 8.0 {x10E3/uL} (Normal) Range: 3.4-10.8 97-Cje-153589:07 LIPID PANEL (40349) Comments: PATIENT WAS FASTINGPERFORMED BY: [employer] [address] [facility] [id number] LDL/HDL Ratio 3.1 {ratio_units} (Normal) Range: 0.0-3.2 Comments: LDL/HDL Ratio Men Women 1/2 Avg.Risk 1.0 1.5 Av g.Risk 3.6 3.2 2X Avg.Risk 6.2 5.0 3X Avg.Risk 8.0 6.1 LDL Cholesterol Calc 142 mg/dL (Abnormal) Range: 0-99 VLDL Cholesterol Josr 65 mg/dL (Abnormal) Range: 5-40 HDL Cholesterol 46 mg/dL (Normal) Triglycerides 325 mg/dL (Abnormal) Range: 0-149 Cholesterol, Total 253 mg/dL (Abnormal) Range: 100-199 24-Hno-803581:07 TSH (18539) Comments: PATIENT WAS FASTINGPERFORMED BY: WantworthyRiverview Medical CenterCkolox3980 [facility] [id number] TSH 2.350 {uIU/mL} (Normal) Range: 0.450-4.500 44-Koc-977528:07 T4, FREE (THYROXINE) (74373) Comments: PATIENT WAS FASTINGPERFORMED BY: [facility]6370 [facility] [id number] T4,Free(Direct) 1.14 ng/dL (Normal) Range: 0.82-1.77 11-Byp-665264:07 T3, FREE (TRIDOTHYRONINE) (38837) Comments: PATIENT WAS FASTINGPERFORMED BY: LabCoRiverview Medical CenterJfhvze1194 [facility] [id number] Triiodothyronine,Free,Serum 2.7 pg/mL (Normal) Range: 2.0-4.4 68-Hxn-435627:16 CBC-Complete Blood Cnt No Diff Comments: [facility] [address] [place], [place], [address] MPV 11.0 fL (Normal) Range: 6.2-12.0 PLT [...] 4.2-5.4 WBC 8.0 K/mm3 (Normal) Range: 4.4-11.0 53-Nbw-240047:16 Ferritin Comments: Has Patient had X-rays with Contrast this admission? NIs Patient Taking Vitamins or Folic Acid Supplements? [facility] [address] [place], [place], [id number] FERRITIN 28 ng/mL (Normal) Range: 8-252 47-Dzp-008306:16 Folates, (Folic Acid) Comments: Has Patient had X-rays with Contrast this admission? NIs Patient Taking Vitamins or Folic Acid Supplements? [facility] [address] [place], [phone] FOLATES 43.90 ng/mL (Abnormal) Range: 3.1-17.5 81-Ysc-331746:16 Free T3 Comments: Has Patient had X-rays with Contrast this admission? NIs Patient Taking Vitamins or Folic Acid Supplements? [facility] [address] [place], [address] FREE T3 2.4 pg/mL (Normal) Range: 2.18-3.98 84-Iqs-962859:16 Iron Comments: Has Patient had X-rays with Contrast this admission? NIs Patient Taking Vitamins or Folic Acid Supplements? [facility] [address] [place], [address] IRON 85 ug/dL (Normal) Range: 50-170 62-Snr-457274:16 Lipid Profile Comments: Has Patient had X-rays with Contrast this admission? NIs Patient Taking Vitamins or Folic Acid Supplements? [facility] [address] [place], [phone] VLDL 29 mg/dL (Normal) Range: 5-40 LDL [...] 200-240 mg/dL Borderline >240 mg/dL High Risk 73-Kmu-758933:16 Liver Profile Comments: Has Patient had X-rays with Contrast this admission? NIs Patient Taking Vitamins or Folic Acid Supplements? [facility] [address]scbv[address] [place], [phone] D BILI 0.15 mg/dL (Normal) Range: 0.00-0.30 T BILI 0.60 mg/dL (Normal) Range: 0.20-1.00 ALT 32 U/L (Normal) Range: 12-78 ALK P 101 U/L (Normal) Range: 45-117 AST 15 U/L (Normal) Range: 15-37 GLOB 4.0 g/dL (Abnormal) Range: 2.3-3.5 ALB 3.6 g/dL (Normal) Range: 3.4-5.0 T PROT 7.6 g/dL (Normal) Range: 6.4-8.2 06-Dvx-456055:16 Magnesium Comments: Has Patient had X-rays with Contrast this admission? NIs Patient Taking Vitamins or Folic Acid Supplements? [facility] [address] [place], [address] MG 2.1 mg/dL (Normal) Range: 1.8-2.4 :16 Partial Thromboplast Time Comments: [facility] [address] [place], [phone](943 PTT 28.6 s (Normal) Range: 24.1-36.2 36-Rrm-166318:16 Phosphorus Comments: Has Patient had X-rays with Contrast this admission? NIs Patient Taking Vitamins or Folic Acid Supplements? [facility] [address] [place], [address] PHOS 2.9 mg/dL (Normal) Range: 2.5-4.9 43-Ndx-713737:16 Prothrombin Time w/INR Comments: [facility] [address] [place], [address] INR 1.0 (Normal) PROTIME 12.5 s (Normal) Range: 11.7-14.9 47-Kub-663910:16 T4 Free Direct Comments: Has Patient had X-rays with Contrast this admission? NIs Patient Taking Vitamins or Folic Acid Supplements? [facility] [address] [place], [phone] T4 FREE DIRECT 0.99 ng/dL (Normal) Range: 0.76-1.46 17-Mdh-937634:16 Thyroid Stim Hormone (TSH) Comments: Has Patient had X-rays with Contrast this admission? NIs Patient Taking Vitamins or Folic Acid Supplements? [facility] [address] [place], [address] TSH 1.78 {uIU/mL} (Normal) Range: 0.358-3.74 30-Qbl-192033:16 Vitamin B12 480 pg/mL (Normal) Comments: [facility] [address] [place], [id number] Range: 211-911 47-Wjm-816280:40 Basic Metabolic Profile (BMP) Comments: 'TROP' Serial specimen #1, #2, #3, or #4: [facility] [address]ootuism[address] [place], [address] GAP 7 (Normal) Range: 5-15 CO2 31.0 [...] 7-18 GLU 101 mg/dL (Normal) Range: 70-110 55-Kfu-456095:40 CBC W/Diff, Automated Comments: [facility] [address] [place], [id number] Absolute Lymph 2.73 {X10_3/ul} (Normal) Range: 0.83-4.51 [...] 4.2-5.4 WBC 8.5 K/mm3 (Normal) Range: 4.4-11.0 29-Qtj-717237:40 Partial Thromboplast Time Comments: [address] [place], [address] PTT 26.2 s (Normal) Range: 24.1-36.2 99-Izv-436641:40 Prothrombin Time w/INR Comments: [address] [place], [address] INR 0.9 (Normal) PROTIME 11.3 s (Abnormal) Range: 11.7-14.9 61-Uxc-086661:40 Troponin-I Comments: 'TROP' Serial specimen #1, #2, #3, or #4: [address] [place], [address] TROPONIN-I < 0.02 ng/mL (Normal) Comments: TROPONIN-I EXPECTED VALUES <0.05 NEGATIVE 0.06 - 0.59 AT RISK OF GA > OR = 0.60 SUGGEST GA 02-May-20169:44 PAP I-G HPV Hi Risk Comments: CYTOLOGY INFORMATION:- CLINICAL INFORMATION: LMP NA- DATE LMP/MENOPAUSE: LMP- COLLECTION VIAL: Thin Prep Vial- MEDICAID BILLER SOURCE: CERVICAL- COLLECTION TECHNIQUE: BRUSH ONLY/CERVIX BROOM ONLYCYTOLOGY INFORM ATION:- CLINICAL INFORMATION: LMP NA- DATE LMP/MENOPAUSE: LMP- COLLECTION VIAL: Thin Prep Vial- MEDICAID BILLER SOURCE: CERVICAL- COLLECTION TECHNIQUE: BRUSH ONLY/CERVIX BROOM ONLYSpecimen Comment: [id number] Comment: No. of containers..01 CYTYC Thin Prep VialLabCorp (refer to report for specific site)refer to report for address and phone number HPV HC,HGH RISK Negative Comments: This high-risk HPV test detects thirteen high-risk types(16/18/31/33/35/39/45/51/52/56/58/59/68) withoutdifferentiation.Performed at: - [address] [id number] (Normal) b Director: Marichuy Matt MD, Phone: [phone] at: = - [facility] [id number] Director: Marichuy Matt MD, Phone: [phone] PAPSMR Comment Comments: The Pap smear is [...] system. (Normal) PERFORM Comment Comments: Shahnaz Molina, Methods Engineer (ASCP) (Normal) ADEQ Comment Comments: Satisfactory for evaluation. Endocervical and/or squamous metaplasticcells (endocervical component) are present. (Normal) DIAGN Comment Comments: NEGATIVE FOR INTRAEPITHELIAL LESION AND MALIGNANCY. (Normal) :16 TSH (69299) Comments: PATIENT WAS FASTINGPERFORMED BY: [facility]6370 [facility] [id number] TSH 4.230 {uIU/mL} (Normal) Range: 0.450-4.500 :16 CMV ANTIBODY (88201) Comments: PATIENT WAS FASTINGPERFORMED BY: [facility]6370 [facility] [id number] Cytomegalovirus (CMV) Ab, IgG >10.00 U/mL (Abnormal) Range: 0.00-0.59 Comments: Negative <0.60 Equivocal 0.60 - 0.69 Positive >0.69 :16 CMV IGM ANTBDY (64028) Comments: PATIENT WAS FASTINGPERFORMED BY: [facility]6370 [facility] [id number] Cytomegalovirus (CMV) Ab, IgM <30.0 AU/mL (Normal) Range: 0.0-29.9 Comments: Negative <30.0 Equivocal 30.0 - 34.9 Positive >34.9 A positive result is generally indicative of acute infection, reactivation or persistent IgM production. :16 EB ANTIBODY VIRAL CAPSID Comments: PATIENT WAS FASTINGPERFORMED BY: [facility]6370 [facility] [id number] (37022) X2 Interpretation: SPRCS (Normal) Comments: EBV Interpretation [...] <36.0 Equivocal 36.0 - 43.9 Positive >43.9 40-Pxn-311509:16 LDH (LD) (LACTATE DEHYDROGENASE) Comments: PATIENT WAS FASTINGPERFORMED BY: [employer] [facility] [id number] (04113) LDH 191 [iU]/L (Normal) Range: 119-226 34-Pfj-058993:16 RHEUMATOID FACTOR-QUANT (76182) Comments: PATIENT WAS FASTINGPERFORMED BY: [employer] [facility] [id number] RA Latex Turbid. 7.3 {IU/mL} (Normal) Range: 0.0-13.9 41-Rrq-532614:16 RIKA (ANTINUCLEAR ANTIBODY) Comments: PATIENT WAS FASTINGPERFORMED BY: [employer] [facility] [id number] (65435) RIKA Direct Negative (Normal) 82-Jih-509117:16 C-REACTIVE PROTEIN (52472) Comments: PATIENT WAS FASTINGPERFORMED BY: [employer] Chmahl3097 [facility] [id number] C-Reactive Protein, Quant 6.4 mg/L (Abnormal) Range: 0.0-4.9 01-Ypo-976128:16 SED RATE ERYTHROCYTE (08863) Comments: PATIENT WAS FASTINGPERFORMED BY: [employer]70 [facility] [id number] Sedimentation Rate-Westergren 6 mm/h (Normal) Range: 0-32 12-Jjz-644441:16 METABOLIC PANEL, COMPREHENSIVE Comments: PATIENT WAS FASTINGPERFORMED BY: [employer]4 [facility] [id number] (52875) ALT (SGPT) 29 [iU]/L (Normal) Range: 0-32 [...] Glucose, Serum 91 mg/dL (Normal) Range: 65-99 42-Bpd-532340:29 Rapid Strep Test, Office (34403) Rapid Strep Test, Office Negative (Normal) 40-Jwn-357423:34 D-Dimer Quantitative (DVT/PE) Comments: [facility] [address] [place], [place], [address] D-DIMER QUANT 1.38 {FEU/ug/m} (Abnormal) Range: 0.27-0.49 Comments: D-Dimer ELEVATED (>0.49): Additional studies and clinicalassessments are indicated to conclude diagnosis of:Deep Vein Thrombosis (DVT) or Pulmonary Embolism (PE)CRITICAL VALUE CALLED TO DR. NEWMAN09/26 162[place].RESULTS READ BACK BY SAME . 95-Zan-139795:54 URINE KATHY CULTURE (JASON Comments: PATIENT NOT FASTINGPERFORMED BY: [facility] Bedzrl4086 [facility] [id number] Information: SRC:[facility] [id number] COL COUNT) (66434) Result 1 BETAGB (Abnormal) Comments: Beta hemolytic [...] flora3,000 Colonies/mL Urine Final report (Abnormal) Culture,Comprehensive 76-Zrf-77059:05 Urinalysis, Office (13296) UA - LEUKOCYTE ESTERASE Negative (Normal) UA - NITRITE Negative (Normal) URINE UROBILINGN JASON TIMED Normal mg/dL (Normal) UA - PROTEIN Negative mg/dL (Normal) UA - PH 7 (Normal) UA - BLOOD Negative (Normal) UA - SPECIFIC GRAVITY 1.020 (Normal) UA - KETONES Negative mg/dL (Normal) UA - BILIRUBIN Negative (Normal) UA - GLUCOSE Negative (Normal) 19-May-2015 [facility] See Note (Normal) Comments: [facility] [address] [place], [address] 9:16 Comments: Patient: MARIAELENA FORMAN : 1970 (44/F) Acct Num: [id number] Phys: José Luis RODRIGUES,Raymundo Unit Num: [id number] Loc: EN Specimen: [id number] Received: 05/19/15 - 1155 Spec Type: EGD BIOPSY TISSUES TISSUES: COMMENT B-The results of IHC for Helicobacter pylori will be reported separately ([id number]). GROSS DESCRIPTION A - Received is one [...] one cassette. / ANA MARÍA:tyrell 05/19/15 TC:1 CPT:47284 x8 HEADER OPERATION: EGD with biopsy and [...] hyperplastic polyp. H-Sigmoid polyp, polypectomy: Tubular adenoma. SJ:nancy 05/20/15 Signed Graham Velez 05/20/15 <signature on file> 19-May-2015 IMMUNOHISTOCHEMISTRY See Note (Normal) Comments: [facility] Osyxnzwnir[address]272 [facility] [place], [address] 0:00 Comments: Patient: MARIAELENA FORMAN : 1970 (44/F) Acct Num: [id number] Phys: José Luis RODRIGUES,Raymundo Unit Num: [id number] Loc: EN Specimen: [id number] Received: 05/20/15 - 1133 Spec Type: IMMUNO TISSUES TISSUES: SPECIMEN INFORMATION: Tissue Source: Gastric antrum, biopsy Clinical Info: Rectal bleeding, abdominal pain Specimen Number: [id number] CPT code: 22369 METHODOLOGY: Deparaffinized sections of prefer/formalin-fixed tissue or PAP/DQ stained slides are incubated with monoclonal/polyclonal antibodies/oligonucleotide probes. Localization is made via bi otin free immunoperoxidase method. Appropriate controls are performed and reacted as expected. Results on target cell population are indicated in the following table: RESULTS: ANTIBODY / CLONE RESULT H Pylori (polyclonal) negative These tests were developed and their performance characteristics determined by [facility]. They ma y not have been cleared or approved by the U.S. Food and Drug Administration. The FDA has determined that such clearance or approval is not necessary. INTERPRETATION: Gastric antrum, biopsy: Nega tive for Helicobacter pylori organisms. SJ:tyrell 05/20/15 PHYSICIAN AND INSTITUTION [place] [address] Signed Graham Velez 05/20/15 <signature on file> 2-Kza-754664:22 METABOLIC PANEL, COMPREHENSIVE Comments: PATIENT WAS FASTINGPERFORMED BY: [facility]Co Wssion7861 [facility] [id number] (74657) ALT (SGPT) 26 [iU]/L (Normal) Range: 0-32 [...] Glucose, Serum 85 mg/dL (Normal) Range: 65-99 7-Nur-547828:22 CBC W/AUTO DIFF WBC Comments: PATIENT WAS FASTINGPERFORMED BY: [facility]6370 [facility] [id number] Information: [id number] (38681) Immature Grans (Abs) 0.0 {x10E3/uL} (Normal) Range: [...] 3.77-5.28 WBC 6.5 {x10E3/uL} (Normal) Range: 3.4-10.8 4-Xng-442181:22 CALCIFIDIOL (71193) VIT D 25 Comments: PATIENT WAS FASTINGPERFORMED BY: Pushfor Fplhvg4133 [facility] [id number] Vitamin D, 25-Hydroxy 18.5 ng/mL (Abnormal) Range: 30.0-100.0 Comments: Vitamin D deficiency has been defined by the [place] [facility] and an Endocrine Society practice guideline as alevel of serum 25-OH vitamin D less than 20 ng/mL (1,2).The Endocrine Society went on to further define vitamin Dinsufficiency as a level between 21 and 29 ng/mL (2).1. IOM ([place] of Medicine). 2010. Dietary reference intakes for calcium and D. [place]: The National Academies Press.2. Sharon MF, Adarsh MAGANA, Lisa SANDERSON, et al. Evaluation, treatment, and prevention of vitamin D deficiency: an Endocrine Society clinical practice guideline. JCEM. 2010; 96(7):1911-30. 3-Whq-733008:22 LIPID PANEL (11479) Comments: PATIENT WAS FASTINGPERFORMED BY: [employer]6370 [facility] [id number] LDL/HDL Ratio 3.5 {ratio_units} (Abnormal) Range: 0.0-3.2 [...] Cholesterol, Total 248 mg/dL (Abnormal) Range: 100-199 3-Ieg-078037:22 TSH (64556) Comments: PATIENT WAS FASTINGPERFORMED BY: [employer] Managementlin6370 [facility] [id number] TSH 2.760 {uIU/mL} (Normal) Range: 0.450-4.500 3-Qrc-138177:40 Basic Metabolic Profile (BMP) Comments: Serial Specimen #1, #2 or #3? 1'TROP' Serial specimen #1, #2, #3, or #4: [facility] [address]onhisswnn[address] [place], [place], [address] GAP 5 (Normal) Range: 5-15 CO2 31.0 [...] Range: 70-110 :40 CBC W/Diff, Automated Comments: [facility] Nziqbcpmwx[address] [place], [place], [address] Absolute Lymph 2.66 {X10_3/ul} (Normal) Range: 0.83-4.51 [...] Serial specimen #1, #2, #3, or #4: 1[facility] Fdfaolptxb0207 [place], [place], [address] CKRI 0.7 % (Normal) Range: 0.0-1.4 Comments: RELATIVE INDEX >1.5% IS PRESUMPTIVELY POSITIVE CPKMB 0.8 ng/mL (Normal) Range: 0.0-5.0 Comments: CK-MB and RI Interpretation MB Relative Index Non-AMI <or= 5 NA Indeterminate > 5 <or= 4 AMI > 5 > 4 CPK TOTAL 120 U/L (Normal) Range: 26-192 :40 D-Dimer Quantitative (DVT/PE) Comments: [facility] Tobbbndpsx5907 [place], [address] D-DIMER QUANT 0.27 {FEU/ug/m} (Normal) Range: 0.27-0.49 Comments: NORMAL D-Dimer level (<0.50) indicates no DVT or PE. 9-Rnw-518844:40 Troponin-I Comments: Serial Specimen #1, #2 or #3? 1'TROP' Serial specimen #1, #2, #3, or #4: 1[facility] Mrfm[address]uzf[address] [place], [address] TROPONIN-I < 0.02 ng/mL (Normal) Comments: TROPONIN-I EXPECTED VALUES <0.05 NEGATIVE 0.06 - 0.59 AT RISK OF GA > OR = 0.60 SUGGEST GA 44-Ncs-434282:21 METABOLIC PANEL, COMPREHENSIVE Comments: PATIENT NOT FASTINGPERFORMED BY: [facility] Ujhlfc5853 [facility] [id number] (55381) ALT (SGPT) 22 [iU]/L (Normal) Range: 0-32 [...] Glucose, Serum 92 mg/dL (Normal) Range: 65-99 36-Pnz-236329:21 CBC W/AUTO DIFF WBC Comments: PATIENT NOT FASTINGPERFORMED BY: [facility]6370 [facility] [id number] Information: [id number] (31158) Immature Grans (Abs) 0.0 {x10E3/uL} (Normal) Range: [...] 7.3 {x10E3/uL} (Normal) Range: 3.4-10.8 :21 TSH (90694) Comments: PATIENT NOT FASTINGPERFORMED BY: [facility]6370 [facility] [id number] TSH 3.390 {uIU/mL} (Normal) Range: 0.450-4.500 94-Kwm-409277:21 CALCIFIDIOL (34976) VIT D 25 Comments: PATIENT NOT FASTINGPERFORMED BY: ARTURO Pushfor Xctcof0057 [facility] [id number] Vitamin D, 25-Hydroxy 18.9 ng/mL (Abnormal) Range: 30.0-100.0 Comments: Vitamin D deficiency has been defined by the [place] of[facility] and an Endocrine Society practice guideline as alevel of serum 25-OH vitamin D less than 20 ng/mL (1,2).The Endocrine Society went on to further define vitamin Dinsufficiency as a level between 21 and 29 ng/mL (2).1. IOM ([place] of Medicine). 2010. Dietary reference intakes for calcium and D. [place]: The National Academies Press.2. Sharon COATS, Adarsh MAGANA, Lisa SANDERSON, et al. Evaluation, treatment, and prevention of vitamin D deficiency: an Endocrine Society clinical practice guideline. JCEM. 2010; 96(7):1911-30. 22-Gne-756265:21 LIPID PANEL (43649) Comments: PATIENT NOT FASTINGPERFORMED BY: Pushfor Txixla5121 [facility] [id number]; apt. 10-15 LDL/HDL Ratio 3.6 {ratio_units} (Abnormal) Range: 0.0-3.2 [...] Cholesterol, Total 250 mg/dL (Abnormal) Range: 100-199 1-Ban-180818:08 Lyme, Western Blot, Comments: PATIENT NOT FASTINGPERFORMED BY: [facility] LandUniversity Of [facility] Hospital6370 [facility] [id number] BY: Pushfor[address] [id number] Serum Lyme IgM WB Interp. Negative (Normal) [...] positivity are those recommended by CDC/ASTPHLD.p23=Osp C, h80=rqkvynqiy .Note:Sera from individuals with the following may cross react in theLyme Western Blot assays: other spirochetal diseases (periodontaldisease, leptospirosis, relapsing fever, yaws, and pinta);connective autoimmune (Rheumatoid Arthritis and Systemic Lupu sErythematosus and also individuals with Antinuclear Antibody);other infections (Counce Spotted Fever; Shakeel-Solis Virus,and Cytomegalovirus). . IgM [...] Absent (Normal) IgG P93 Ab. Absent (Normal) 5-Hai-896600:08 Lyme Disease Antibody W/ Comments: PATIENT NOT FASTINGPERFORMED BY: PushforRiverview Medical CenterZnvugj1220 [facility] [id number] BY: [address] [id number] Reflex (39652) Lyme IgG/IgM Ab <0.91 {ISR} (Normal) Range: 0.00-0.90 Comments: Negative <0.91 Equivocal 0.91 - 1.09 Positive >1.09 Please note reference interval change :08 C-REACTIVE PROTEIN (99396) Comments: PATIENT NOT FASTINGPERFORMED BY: Patch of LandCoJosh[place] 6456970 [facility] [id number] BY: [address] [id number] C-Reactive Protein, Quant 5.0 mg/L (Abnormal) Range: 0.0-4.9 :08 Sed Rate Erythrocyte Comments: PATIENT NOT FASTINGPERFORMED BY: [facility] Hdczuv8137 [facility] [id number] BY: [facility] [employer] Land[address] [id number] (31793) Sedimentation Rate-Westergren 8 mm/h (Normal) Range: 0-32 :08 Metabolic Panel, Comments: PATIENT NOT FASTINGPERFORMED BY: WantworthyRiverview Medical CenterBnwyly4558 [facility] [id number] BY: [facility] [employer] [id number] Comprehensive (40945) ALT (SGPT) 22 [iU]/L (Normal) Range: 0-32 [...] Glucose, Serum 89 mg/dL (Normal) Range: 65-99 7-Fmb-821996:08 CBC with auto diff Comments: PATIENT NOT FASTINGPERFORMED BY: CB [facility] Epaohk6680 [facility] [id number] BY: BN [facility] Rafllnxtzv7280 [facility] [id number] Inf ormation: [id number] (40188) Immature Grans (Abs) 0.0 {x10E3/uL} (Normal) Range: [...] 3.77-5.28 WBC 8.0 {x10E3/uL} (Normal) Range: 3.4-10.8 2-Zfw-804925:40 Rapid Flu (14293 x 2) Influenza A Ag neg (Normal) 60-Efo-173429:27 Urinalysis, Office (07400) UA - LEUKOCYTE ESTERASE Negative (Normal) UA - NITRITE Negative (Normal) URINE UROBILINGN JASON TIMED Normal mg/dL (Normal) UA - PROTEIN Negative mg/dL (Normal) UA - PH 6.5 (Normal) UA - BLOOD Negative (Normal) UA - SPECIFIC GRAVITY 1.010 (Normal) UA - KETONES Negative mg/dL (Normal) UA - BILIRUBIN Negative (Normal) UA - GLUCOSE Negative (Normal) 68-Way-790679:22 Urine Test, Office (27157) Urine Test, Office Negative (Normal) 01-Hbt-534996:08 CALCIFIDIOL (53830) VIT D 25 Comments: PATIENT NOT FASTINGPERFORMED BY: LabCoRiverview Medical CenterGdsqhu6883 [facility] [id number] Vitamin D, 25-Hydroxy 17.5 ng/mL (Abnormal) Range: 30.0-100.0 Comments: Vitamin D deficiency has been defined by the [place] of[facility] and an Endocrine Society practice guideline as alevel of serum 25-OH vitamin D less than 20 ng/mL (1,2).The Endocrine Society went on to further define vitamin Dinsufficiency as a level between 21 and 29 ng/mL (2).1. IOM ([place] of Medicine). 2010. Dietary reference intakes for calcium and D. [place]: The National Academies Press.2. Sharon MF, Adarsh MAGANA, Lisa SANDERSON, et al. Evaluation, treatment, and prevention of vitamin D deficiency: an Endocrine Society clinical practice guideline. JCEM. 2010; 96(7):1911-30. 48-Apm-868927:08 Folate (89476) Comments: PATIENT NOT FASTINGPERFORMED BY: [facility] Hdiuue2981 [address] [facility] [place] [id number] Folate (Folic Acid), Serum 12.5 ng/mL (Normal) Comments: A serum folate concentration of less than 3.1 ng/mL isconsidered to represent clinical deficiency. 26-Gsm-169701:08 VITAMIN B-12 (CYANOCOBALAMIN) Comments: PATIENT NOT FASTINGPERFORMED BY: [facility] Kmklua0365 Diaz Roadblin [place] [id number] (10457) Vitamin B12 353 pg/mL (Normal) Range: 211-946 96-Inx-408321:08 TSH (67977) Comments: PATIENT NOT FASTINGPERFORMED BY: [facility] Ngwnul1907 [address] [facility] [place] [id number] TSH 4.350 {uIU/mL} (Normal) Range: 0.450-4.500 :08 SED RATE ERYTHROCYTE (73860) Comments: PATIENT NOT FASTINGPERFORMED BY: [facility] Kbwgwu6476 [address] [facility] [place] [id number] Sedimentation Rate-Westergren 2 mm/h (Normal) Range: 0-32 18-Ecx-451244:08 RHEUMATOID FACTOR-QUANT (18176) Comments: PATIENT NOT FASTINGPERFORMED BY: [facility] Jvkqjk5824 [address] [facility]in [place] [id number] RA Latex Turbid. 6.7 {IU/mL} (Normal) Range: 0.0-13.9 72-Bvo-589424:08 METABOLIC PANEL, Comments: PATIENT NOT FASTINGPERFORMED BY: [facility] Vqbiru3967 [address] [facility] [place] [id number] Information: [id number] COMPREHENSIVE (39845) ALT (SGPT) 21 [iU]/L (Normal) Range: 0-32 [...] Glucose, Serum 88 mg/dL (Normal) Range: 65-99 48-Pal-064911:08 C-REACTIVE PROTEIN (60977) Comments: PATIENT NOT FASTINGPERFORMED BY: Pushfor Ayzosc2954 [facility] [id number] C-Reactive Protein, Quant 6.1 mg/L (Abnormal) Range: 0.0-4.9 49-Jrf-452956:08 CBC (AUTO) (19116) Comments: PATIENT NOT FASTINGPERFORMED BY: PushforCrownpoint Healthcare FacilityDlezdl5339 [facility] [id number] Platelets 487 {x10E3/uL} (Abnormal) Range: 150-379 RDW 13.8 % (Normal) Range: 12.3-15.4 MCHC 34.1 g/dL (Normal) Range: 31.5-35.7 MCH 30.8 pg (Normal) Range: 26.6-33.0 MCV 91 fL (Normal) Range: 79-97 Hematocrit 40.8 % (Normal) Range: 34.0-46.6 Hemoglobin 13.9 g/dL (Normal) Range: 11.1-15.9 RBC 4.51 {x10E6/uL} (Normal) Range: 3.77-5.28 WBC 7.4 {x10E3/uL} (Normal) Range: 3.4-10.8 48-Auu-093151:08 RIKA (ANTINUCLEAR ANTIBODY) Comments: PATIENT NOT FASTINGPERFORMED BY: LabCoRiverview Medical CenterLbknag1448 [facility] [id number] (77876) RIKA Direct Negative (Normal) 18-Owt-240399:01 METABOLIC PANEL, Comments: PATIENT WAS FASTINGPERFORMED BY: LabCoRiverview Medical CenterVmfbdj3127 [facility] [id number] Information: [id number] COMPREHENSIVE (25463) ALT (SGPT) 21 [iU]/L (Normal) Range: 0-32 [...] Glucose, Serum 91 mg/dL (Normal) Range: 65-99 14-Tmp-447304:01 LIPID PANEL (70411) Comments: PATIENT WAS FASTINGPERFORMED BY: [place] 0618470 [facility] [id number] LDL/HDL Ratio 3.1 {ratio_units} (Normal) Range: 0.0-3.2 LDL Cholesterol Calc 146 mg/dL (Abnormal) Range: 0-99 VLDL Cholesterol Josr 28 mg/dL (Normal) Range: 5-40 HDL Cholesterol 47 mg/dL (Normal) Comments: According to ATP-III Guidelines, HDL-C >59 mg/dL is considered anegative risk factor for CHD. Triglycerides 142 mg/dL (Normal) Range: 0-149 Cholesterol, Total 221 mg/dL (Abnormal) Range: 100-199 60-Poo-005251:01 TSH (26763) Comments: PATIENT WAS FASTINGPERFORMED BY: [place] 0618470 [facility] [id number] TSH 2.590 {uIU/mL} (Normal) Range: 0.450-4.500 04-Ckk-548038:01 TSH (THYROID STIMULATING Comments: PATIENT WAS FASTINGPERFORMED BY: [address] [id number] HORMONE) (67259) TSH 4.510 {uIU/mL} (Abnormal) Range: 0.450-4.500 18-Dlb-942503:01 LIPID PANEL (82434) Comments: PATIENT WAS FASTINGPERFORMED BY: [address] [id number] Information: ADD [id number] AND DRAW FEE 99 6660 LDL/HDL Ratio 3.1 {ratio_units} (Normal) Range: 0.0-3.2 LDL Cholesterol Calc 138 mg/dL (Abnormal) Range: 0-99 HDL Cholesterol 44 mg/dL (Normal) Comments: According to ATP-III Guidelines, HDL-C >59 mg/dL is considered anegative risk factor for CHD. VLDL Cholesterol Josr 28 mg/dL (Normal) Range: 5-40 Triglycerides 139 mg/dL (Normal) Range: 0-149 Cholesterol, Total 210 mg/dL (Abnormal) Range: 100-199 48-Xrd-235588:01 CALCIFEDIOL (46472) Comments: PATIENT WAS FASTINGPERFORMED BY: LabUniversity [facility] Hospital6370 [facility] [id number] Vitamin D, 25-Hydroxy 31.8 ng/mL (Normal) Range: 30.0-100.0 Comments: Vitamin D deficiency has been defined by the [place] ofMedicine and an Endocrine Society practice guideline as alevel of serum 25-OH vitamin D less than 20 ng/mL (1,2).The Endocrine Society went on to further define vitamin Dinsufficiency as a level between 21 and 29 ng/mL (2).1. IOM ([place] of Medicine). 2010. Dietary reference intakes for calcium and D. [place]: The National Academies Press.2. Sharon MF, Adarsh MAGANA, Lisa SANDERSON, et al. Evaluation, treatment, and prevention of vitamin D deficiency: an Endocrine Society clinical practice guideline. JCEM. 2010; 96(7):1911-30. DDIMQ 0.32 {FEUug/mL} Range: 0.22-0.48 :37 (Normal) Comments: NORMAL D-Dimer level indicates no DVT or PE. 6-Tll-711310:16 ACAAGM tANTICA < 9 {APL_U/mL} (Normal) Range: [...] Positive: >20 - 80 High Positive: >80 3-Pup-079876:16 AT3F tAT3AI 104 % (Normal) Range: 75-130 AT3 97 % (Normal) Range: 75-135 0-Ril-064254:16 BETA2G iHUXV1K$ <9 (Normal) Range: 0-20 Comments: INFCE Result Units: GPI IgA units uGPWH9F$ <9 (Normal) Range: 0-20 Comments: INFCE Result Units: GPI IgG units qGTKO0I$ <9 (Normal) Range: 0-20 Comments: INFCE Result Units: GPI IgM units 4-Hep-128524:16 FACIID tFACIID Comment (Normal) Comments: NEGATIVENo mutation identified. .Comment:A point mutation ([id number]) in the factor II (prothrombin)gene is the [...] individual mutations. This assaydetects only the prothrombin O38919L mu tation and doesnot measure genetic abnormalities elsewhere in thegenome. Other thrombotic risk factors may be pursuedthrough systematic clinical laboratory analysis. Thesefactors include the R506Q (Leid en) mutation in the Factor Vgene, plasma homocysteine levels, as well as testing fordeficiencies of antithrombin III, protein C and protein S. 4-Prd-136344:16 FACVL tFACVL Comment (Normal) Comments: Result: Negative [...] in the workup for venous thrombosis include [id number] mutation in the factor II (prothrombin) gene,protein S and C deficiency, and antithromb in deficiencies.Anticardiolipin antibody and lupus anticoagulant analysismay be appropriate for certain patients, as well ashomocysteine levels. .Contact your local [facility] for information on how to orderadditional testing if desired. .Genetic counselors are available for health care* providers to discuss results at [phone]). .Methodology:DNA analysis of the Factor V gene was performed by allele-specific PCR followed by gel electrophoresis. The diagnosticsensitivity and specificity is >99% for both. Molecular-based testing is highly accurate, but as in any laboratorytest, diagnostic errors may occur. All test results must becombined with clinical information for the most accurateinterpretation. .References:Lima Corrales (1995). Clin Lab Med 16: 169-186. .Bentley Nolen, Ph.D.Andressa Andrea, Ph.D.Lolita Marinelli, Ph.D.Beatriz Dover, Ph.D.Beth Smith, Ph.D.Ashley Deluna M.D .Sheron Leroy, Ph.D. . 2-Oky-947513:16 HOMO 8.0 umol/L (Normal) Range: 3.2-10.7 9-Vcv-093474:16 PROTC PRC 125 % (Normal) Range: 70-140 PRCF 168 % (Abnormal) Range: 74-151 5-Vhm-493491:16 PROTS tPROSFU 112 % (Normal) Range: 60-145 tPROSF 118 % (Normal) Range: 56-124 tPROST 105 % (Normal) Range: 58-150 :01 PT INR 1.9 (Normal) PTP 21.4 s (Abnormal) Range: 11.9-14.4 2-Dgy-695994:07 PT INR 2.1 (Normal) PTP 22.5 s (Abnormal) Range: 11.9-14.4 :01 PT INR 1.8 (Normal) PTP 20.6 s (Abnormal) Range: 11.9-14.4 :18 PT INR 2.1 (Normal) PTP 22.5 s (Abnormal) Range: 11.9-14.4 :33 RIKA DIR SEMI-QL RIKA DIRECT 17 AU/mL (Normal) : B12/FOLATES FOLATES 24.00 ng/mL (Abnormal) Range: 3.1-17.5 VITAMIN B12 823 pg/mL (Normal) Range: 254-1320 Comments: There is a low frequency possibility that high titers ofintrinsic blocking antibodies may not be completely inactivated during the reaction pretreatment stepof this testing method. If test results are i n conflictwith the clinical diagnosis, patient should be testedfor the presence of intrinsic factor blocking antibodies. : C-REACTIVE PROT 6.36 mg/L (Abnormal) Range: 0.0-3.0 [...] 4.2-5.4 WBC 6.0 K/mm3 (Normal) Range: 4.4-11.0 :33 COMP METABOLIC GAP 10 (Normal) Range: 5-15 [...] {uIU/mL} (Normal) Range: 0.358-3.74 :33 VIT D,25 11868 28.7 ng/mL (Abnormal) Range: 30.0-100.0 Comments: Vitamin D deficiency has been defined by the [place] ofMedicine and an Endocrine Society practice guideline as alevel of serum 25-OH vitamin D less than 20 ng/mL (1,2).The Endocrine Society went on to further define vitamin Dinsufficiency as a level between 21 and 29 ng/mL (2).1. IOM ([place] of Medicine). 2011. Dietary reference intakes for calcium and D. [place]: The National Academies Press.2. Sharon MF, Adarsh NC, Lisa SANDERSON, et al. Evaluation, treatment, and prevention of vitamin D deficiency: an Endocrine Society clinical practice guideline. JCEM. 2010; 96(7): 1911-30.Performed at: [address] [id number] Director: Nuzhat Worrell MD, Phone: [phone] 5-Irs-106284:30 CHEST WITH CONTRAST Radiology Report See Note [...] radiologist regarding this report, please call our [id number] line @ Dictated on 04/04/11 1546 by Mel Tan MDranscribed on 04/04/11 1638 by ITS IMPORTSign by Emre Tan MD on 04/04/11 1639 Sign by: Emre Tan MD 07-Wcu-466712:49 PRO TIME INR 1.8 (Normal) PROTIME 20.2 s (Abnormal) Range: 11.9-14.4 :18 Prothrombin Time (PT) Comments: PERFORMED BY: [facility]6370 [facility] [id number] Prothrombin Time 25.5 {sec} (Abnormal) Range: 9.1-12.0 [...] (Normal) PROTIME 28.8 s (Abnormal) Range: 11.9-14.4 09-Cto-153001:51 CULTURE, SPUTUM RESP CULTURE See Note (Normal) [...] be affected. Range: 0.358-3.74 :44 VIT D,25 12200 16.7 ng/mL (Abnormal) Range: 32.0-100.0 Comments: Effective January 22, 2011 Vitamin D, 25-Hydroxy reference intervals will be changing to 30-100. .Recent studies consider the lower li jay of 32.0 ng/mL to be athreshold for optimal health.Luis HERNADEZ. J Nutr. 2004;135(2):317-22.Performed at: [address] [id number] Director: Nuzhat Worrell MD, Phone: [phone] TSH 1.72 {uIU/mL} (Normal) Range: 0.358-3.74 10-Tkf-872033:21 BRAIN/HEAD WITHOUT CONTRAST Radiology Report See Note [...] CT scan of the brain. Dictated on 05/22/101624 by PITA CONTRERAS MDTranscribed on 05/22/101648 by ITS IMPORTSign by PITA CONTRERAS MD on 05/22/101649 Sign by: PITA CONTRERAS MD :19 SINUS/FACIAL BONE Radiology Report See Note (Normal) [...] examination of the maxillofacial sinuses. Dictated on 05/22/101624 by PITA CONTRERAS MDTranscribed on 05/22/101650 by [...] Comments: GLU,2HPPG 75gm GLUC PPG GLUP from 0714:[id number]. :23 COMPLETE UA BACTERIA 0 SEEN {/hpf} [...] CHOL 208 mg/dL (Abnormal) Comments: <200 mg/dL Urximfuki615-635 mg/dL Borderline>240 mg/dL High Risk :23 TSH 2.35 {uIU/mL} (Normal) Range: 0.358-3.74 03-Woh-267756:19 CULTURE, URINE URINE CULTURE See Note {CFU/mL} (Normal) Comments: COLONY COUNT 25,000-50,000 ORGANISM 1: MIXED GRAM POSITIVE ORGANISMS :07 Rapid Flu (48460 x 2) INFLUENZA IMMUNOASSY DIRECT OPTICAL OBSERV neg (Normal) 23-Zke-991815:07 Rapid Strep Test, Office (75561) Rapid Strep Test, Office Negative (Normal) 80-Ujq-643335:46 CULTURE, URINE URINE CULTURE See Note (Normal) Comments: Predominant being a gram positive skip, possibleLactobacillus species. COLONY COUNT 80,000- 100,000 ORGANISM 1: MIXED GRAM POSITIVE ORGANISMS 85-Rgx-666950:13 Urinalysis, Office (17558) UA - BILIRUBIN Negative (Normal) UA - [...] mg/dL VLDL 32 mg/dL (Normal) Range: 5-40 20-Bum-79997:17 TSH 1.78 {uIU/mL} (Normal) Range: 0.358-3.74 03-Ksq-249059:59 ABDOMEN WITH CONTRAST Radiology Report See Note (Normal) Comments: Exam Number: [id number] CT OF THE ABDOMEN AND PELVIS WITH [...] and splenectomy. Reported By: PITA ALBERTS M.D. 22-Bph-798383:59 PELVIS WITH CONTRAST Radiology Report See Note (Normal) Comments: Exam Number: [id number] CT OF THE ABDOMEN AND PELVIS WITH CONTRAST INDICATIONAbdominal pain. COMPARISONAuunm sandoval regional medical centert 2003. TECHNIQUEContiguous transaxial images were obtained through [...] and splenectomy. Reported By: PITA ALBERTS M.D. 68-Flc-15659:36 Upper Respiratory Culture Comments: Clinical Information: SRC: ADD [id number] PERFORMED BY: [facility] [id number] Result 1 RRF (Normal) Comments: Routine respiratory ed Upper Respiratory Culture Final report (Normal) 22-Jan-2007 Antistreptolysin O Ab 37.7 {IU/mL} Comments: PATIENT NOT FASTINGPERFORMED BY: [facility] [id number] 9:26 (Normal) Range: 0.0-200.0 :26 Comp. Metabolic Panel (14) Comments: PATIENT NOT FASTINGPERFORMED BY: PushforRiverview Medical CenterLjwlmv5498 [facility] [id number] A/G Ratio 1.2 (Normal) Range: 1.1-2.5 Albumin, [...] (ANTINUCLEAR ANTIBODY) Comments: PATIENT NOT FASTINGPERFORMED BY: PushforRiverview Medical CenterHfzozk0719 [facility] [id number] (97698) Antinuclear Antibodies Direct 55 AU/mL (Normal) Range: 0-99 Comments: Negative <100 Equivocal 100 - 120 Positive >120 :26 Sed Rate Erythrocyte (96756) Comments: PATIENT NOT FASTINGPERFORMED BY: PushforRiverview Medical CenterEwxona7487 [facility] [id number] Sedimentation Rate-Westergren 6 mm/h (Normal) Range: 0-20 :26 CBC, Platelets & Auto Diff Comments: PATIENT NOT FASTINGPERFORMED BY: ARTURO [facility] Nmmmmi9424 [facility]At[facility] [id number] (29100) Baso (Absolute) 0.1 {x10E3/uL} (Normal) Range: 0.0-0.2 [...] Dates Details Instructions HTN (hypertension), benign : Diet, Exercise, and Wt loss Indication: HTN (hypertension), benign HTN (hypertension), benign : HTN/CAD Red Flags Indication: HTN (hypertension), benign Abnormal glucose tolerance test (Renamed from Abnormal glucose tolerance test (GTT)) : Follow up in 4 months Indication: Abnormal glucose tolerance test (Renamed from Abnormal glucose tolerance test (GTT)) Abnormal glucose tolerance test (Renamed from Abnormal glucose tolerance test (GTT)) : Eprescribed prescriptions (G8553) Indication: Abnormal glucose tolerance test (Renamed from Abnormal glucose tolerance test (GTT)) HTN (hypertension), benign : Follow up in [...] Ischemic stroke of frontal lobe : Reviewed Supervisor Contingents Letter Indication: Ischemic stroke of frontal lobe [...] Indication: Sleep apnea Cough, persistent : Reviewed Supervisor Contingents Letter- dr overton /alexander ok-no evid of gerd /cebul hh/ slight gerd Indication: Cough, persistent Polyp of colon, adenomatous : Reviewed Supervisor Contingents Letter- Tessie- rescope in 3yrs Indication: Polyp [...] other allergen MYOCARDIAL INFARCTION, NOS : Reviewed Supervisor Contingents Letter Indication: MYOCARDIAL INFARCTION, NOS MYOCARDIAL INFARCTION, [...] Indication: Acute sinusitis, unspecified Planned Observations TSH ([id number])Indication: Hypothyroidism, unspecified On: :02 Request METABOLIC PANEL, COMPREHENSIVE ([id number])Indication: Abnormal glucose tolerance test (Renamed from Abnormal glucose tolerance test (GTT)) On: :02 Request CBC W/AUTO DIFF WBC ([id number])Indication: Abnormal glucose tolerance test (Renamed from Abnormal glucose tolerance test (GTT)) On: :02 Request LIPOPROTEIN, BLD, BY NMR ([id number])Indication: Hypercholesteremia On: : Request CALCIFIDIOL (09578) VIT D 25Indication: Vitamin D deficiency, unspecified On: :01 Request Rapid Flu (03465 x 2)Indication: Fever and chills On: 96-Ict-038812:22 Request EB ANTIBODY NUCLR ANTIGN ([id number])Indication: Lymphadenopathy, cervical On: 20-Mgi-044918:29 Request D-Dimer ([id number])Indication: History of DVT (deep vein thrombosis) On: 23-Mot-312465:06 Request METABOLIC PANEL, COMPREHENSIVE ([id number])Indication: Hypercholesteremia On: :42 Request CBC W/AUTO DIFF WBC ([id number])Indication: Hypercholesteremia On: :42 Request LIPID PANEL ([id number])Indication: Hypercholesteremia On: :42 Request TSH ([id number])Indication: Hypothyroidism, unspecified On: :42 Request CALCIFIDIOL (32357) VIT D 25Indication: Vitamin D deficiency, unspecified On: :41 Request LIPID PANEL ([id number])Indication: Hypercholesteremia On: :35 Request Comments: do in 4months TSH ([id number])Indication: Hypothyroidism, unspecified On: :30 Request Anti-TPO Antibody ([id number])Indication: Hypothyroidism, unspecified On: :25 Request T4, FREE (THYROXINE) ([id number])Indication: Hypothyroidism, unspecified On: 40-Tsv-87536:25 Request T3, FREE (TRIDOTHYRONINE) ([id number])Indication: Hypothyroidism, unspecified On: 14-Jul-2012 Request TSH ([id number])Indication: Hypothyroidism, unspecified On: 14-Jul-2012 Request D-Dimer ([id number])Indication: SOB On: 07-Zgp-585134:25 Request Antiphospholipid atb (94690)Indication: Pulmonary embolism On: :12 Request Comments: IgM and igG, IgA anticardiolipin antibody i also need the Beta 2 glycoprotein anticardiolipin antibody -IgG, and IgM Protein S Profile ([id number])Indication: Pulmonary embolism On: :05 Request Protein C Profile ([id number])Indication: Pulmonary embolism On: :05 Request Homocysteine, Plasma (71345)Indication: Pulmonary embolism On: :05 Request ANTICOAG ANTTHROMB III & ASSAY ([id number])Indication: Pulmonary embolism On: : Request ANTITHROMBIN III ACTIVTY ([id number])Indication: Pulmonary embolism On: :05 Request CLOTTING FACTOR II ([id number])Indication: Pulmonary embolism On: :05 Request Factor V Leiden ([id number])Indication: Pulmonary embolism On: :05 Request PT (Prothrobim Time) ([id number])Indication: Pulmonary embolism On: 44-Gjc-692007:02 Request PT (Prothrobim Time) ([id number])Indication: Pulmonary embolism On: 82-Dgg-35802:40 Request Comments: standing order TSH ([id number])Indication: Anxiety On: :52 Request LIPID PANEL ([id number])Indication: Hypercholesteremia On: :52 Request VITAMIN B-12 (CYANOCOBALAMIN) ([id number])Indication: Vitamin B12 deficiency (non anemic) On: :51 Request CALCIFIDIOL ([id number]) VIT D 25Indication: Vitamin D deficiency, unspecified On: :48 Request PT (Prothrobim Time) ([id number])Indication: Pulmonary embolism On: :48 Request KATHY CULTURE-OTHER ([id number])Indication: Staphylococcal septicemia, unspecified On: :46 Request Comments: nares -both KATHY CULTURE-BLOOD ([id number])Indication: Fever, unspecified On: :42 Request PT (Prothrobim Time) ([id number])Indication: Pulmonary embolism On: :28 Request CULTURE, SPUTUM ([id number])Indication: Wheezing On: 33-Gli-588015:34 Request PT (Prothrobim Time) ([id number])Indication: Pulmonary embolism On: 68-Hmu-608021:29 Request PT (Prothrobim Time) ([id number])Indication: Pulmonary embolism On: 71-Hbv-158058:57 Request Comments: inr CALCIFIDIOL ([id number]) VIT D 25Indication: Fatigue On: :32 Request Folate ([id number])Indication: Fatigue On: :32 Request VITAMIN B-12 (CYANOCOBALAMIN) ([id number])Indication: Fatigue On: :32 Request TSH ([id number])Indication: Fatigue On: :32 Request SED RATE ERYTHROCYTE ([id number])Indication: Fatigue On: :32 Request RHEUMATOID FACTOR-QUANT ([id number])Indication: Fatigue On: :32 Request METABOLIC PANEL, COMPREHENSIVE ([id number])Indication: Fatigue On: :32 Request C-REACTIVE PROTEIN ([id number])Indication: Fatigue On: :32 Request CBC (AUTO) ([id number])Indication: Fatigue On: :32 Request RIKA (ANTINUCLEAR ANTIBODY) ([id number])Indication: Fatigue On: 88-Fnb-54937:32 Request LIPID PANEL ([id number])Indication: Hypercholesteremia On: 24-Nov-2010 Request TSH ([id number])Indication: Hypothyroidism, unspecified On: 55-Apb-64964:33 Request KATHY CULTURE-OTHER ([id number])Indication: Upper respiratory infection On: :32 Request Rapid Strep Test, Office ([id number])Indication: Upper respiratory infection On: 60-Seu-369138:32 Request LIPID PANEL ([id number])Indication: Hypercholesteremia On: 5-Rei-899876:36 Request TSH ([id number])Indication: Hypothyroidism, unspecified On: 0-Eii-394355:35 Request LIPID PANEL ([id number])Indication: Hypercholesteremia On: 61-Etj-920804:21 Request Comments: do in 4 months Glucose, PP/2 Hour ([id number])Indication: Family history of diabetes mellitus On: 78-Foh-326351:18 Request URINALYSIS, W/ MICRO ([id number])Indication: Other abnormal finding of urine On: 68-Lax-90691:02 Request TSH ([id number])Indication: Hypothyroidism, unspecified On: 20-Puj-31631:55 Request LIPID PANEL ([id number])Indication: Hypercholesteremia On: :55 Request URINE KATHY CULTURE-JASON COL COUNT ([id number])Indication: Other abnormal finding of urine On: 64-Uxl-401217:21 Request Urinalysis, Office ([id number])Indication: Other abnormal finding of urine On: 95-Nui-613662:20 Request URINE KATHY CULTURE-JASON COL COUNT ([id number])Indication: Dysuria On: 99-Vwb-884235:35 Request LIPID PANEL ([id number])Indication: Hypercholesteremia On: 11-Mow-181611:28 Request Comments: do in 6 months TSH ([id number])Indication: Hypothyroidism, unspecified On: :51 Request LIPID PANEL ([id number])Indication: Hypothyroidism, unspecified On: 10-Dec-20088:51 Request LIPID PANEL ([id number])Indication: Hyperglyceridemia On: 32-Uvc-454177:26 Request Comments: DO IN 4-6 MONTHS KATHY CULTURE-OTHER ([id number])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) On: :24 Request SKIN TEST INTRADERMAL TB ([id number])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) On: :19 Request Comments: given 0.1 in left forearm LOT#[id number] exp.07/10-aw Metabolic Panel, Comprehensive ([id number])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) On: :19 Request ANTISTREPTOLYSIN O-SCREN ([id number])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) On: :18 Request URINALYSIS ([id number])Indication: Dysuria On: :51 Request Planned Procedures Doppler Ultrasound OtherBy: Blake On: 02-Oct-2017 Intent Sho DAMON DO, Kathleen Comments: lower extremity CXR PA & LAT ([id number])By: Blake DAMON, On: 02-Oct-2017 Intent Sho Carvajal DO Spirometry ([id number])By: Blake DAMON, On: 02-Oct-2017 Intent Sho Carvajal DO Comments: normal with text book curves on restrictions ELECTROCARDIOGRAM, COMPLETE (ECG) On: 22-Mar-2017 Intent ([id number])By: Sho Lozano DO Comments: nsr no acute chg Sho Lozano DO CT SCAN, ABDOMEN W/O CONTRAST On: 22-Mar-2017 Intent ([id number])By: Sho Lozano DO, DO, Kathleen Wax CurettesBy: Sho Lozano DO On: 20-Nov-2016 Intent Sho Lozano DO Ear Irrigation ([id number])By: Blake On: 20-Nov-2016 Intent Sho DAMON DO, Kathleen Comments: Ear Irrigation performed on:bilateralAmount/color removed cerumen: brown, moderate amountOUtcome:clear and tolerated Spirometry ([id number])By: Blake DAMON, On: 20-Nov-2016 Intent Sho Carvajal DO Comments: normal Solu- Medrol Injection, 125mg On: 20-Nov-2016 Intent ([id number])By: Sho Lozano DO Comments: lot 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, 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 Sho Lozano DO Aerosol Treatment ([id number])By: Blake On: 20-Nov-2016 Sho Orona DO, DO, Kathleen Comments: no wheeze more ae CT SCAN OF NECK TISSUE WITH On: 16-Dec-2015 Intent CONTRAST ([id number])By: Sho Lozano DO, DO, Kathleen CT - Chest (IV Contrast Needed)By: On: 27-Sep-2015 Intent Elida Horton CNP Comments: STAT Venous Doppler - RightBy: Clifford On: 27-Sep-2015 Intent Elida DIAS Spirometry ([id number])By: Blake DAMON, On: 12-Apr-2015 Intent Sho Carvajal DO Comments: looks good HOME SLEEP STUDY TEST (HST) WITH On: 12-Apr-2015 Intent TYPE II PORTABLE MONITOR, UNATTENDED; MINIMUM OF 7 CHANNELS: EEG, EOG, EMG, ECG/HEART RATE, AIRFLOW, RESPIRATORY EFFORT AND OXYGEN SATURATION ([id number])By: Sho Lozano DO, DO, Kathleen ATTENDED SLEEP STUDY ([id number])By: On: 02-Dec-2014 Intent Sho Lozano DO, DO, Kathleen Aerosol Treatment ([id number])By: Blake On: 16-Nov-2014 Sho Orona DO, DO, Kathleen Comments: clear afdter treatmenet Doppler Ultrasound OtherBy: Blake On: 16-Nov-2014 Sho Orona DO, DO, Kathleen BILATERAL MAMMOGRAMS ([id number])By: On: 30-Jun-2014 Intent Sho Lozano DO, DO, Sho Aerosol Treatment ([id number])By: Blake On: 12-Mar-2014 Sho Orona DO, DO, Kathleen Comments: more a/e no wheeze ELECTROCARDIOGRAM, COMPLETE (ECG) On: 18-Dec-2013 Intent ([id number])By: Elida Horton CNP MAMMOGRAM, SCREENING, BOTH BREASTS On: 13-May-2013 Intent ([id number])By: Sho Lozano DO, DO, Kathleen Eprescribed prescriptions On: 30-May-2012 Intent ([id number])By: Sho Lozano DO, DO, Kathleen Eprescribed prescriptions On: 14-May-2012 Intent ([id number])By: Carmelina Newman LPN Spirometry ([id number])By: Blake DAMON, On: 18-Jan-2012 Intent Sho Carvajal DO Comments: not bad-- some technique bad related results EKG ([id number])By: Sho Lozano DO On: 18-Jan-2012 Intent Sho Lozano DO Comments: nsr no acute chg Aerosol Treatment ([id number])By: Clifford On: 03-Dec-2011 Intent Elida DIAS Solu -Medrol Injection, 125 mg On: 12-Nov-2011 Intent ([id number])By: Clifford DIAS Elida Tyler Comments: Lot #[id number]-r hip, IMDose- prefilled syringegiven by:MARIAN Almazan signed Eprescribed prescriptions On: 12-Nov-2011 Intent ([id number])By: Roxie Vázquez LPN Pulse Oximetry ([id number])By: Blake On: 04-Apr-2011 Sho Orona DO, DO, Kathleen Comments: 95% CT - Chest: pe protocolBy: Blake On: 04-Apr-2011 Sho Orona DO, DO, Kathleen EKG ([id number])By: Sho Lozano DO On: 04-Apr-2011 Intent Sho Lozano DO Comments: NSR -- SMALL CONDUCTION DELAY IN INFERIOR LEADS -- WILL COMPARE- SEEMS TO BE NEW VS LEAd placemnt CT - Sinuses CompleteBy: Blake DAMON, On: 07-Feb-2011 Intent Sho Carvajal DO Radiology - Chest- PA and LatBy: On: 02-Feb-2011 Intent Sho Lozano DO, DO, Kathleen Pulse Oximetry ([id number])By: Blake On: 02-Feb-2011 Intent Sho DAMON DO, Kathleen Aerosol Treatment ([id number])By: Blake On: 02-Feb-2011 Intent Sho DAMON DO, Kathleen Pulse Oximetry ([id number])By: Clifford On: 29-Jan-2011 Intent Elida DIAS Aerosol Treatment ([id number])By: Clifford On: 29-Jan-2011 Intent Elida DIAS Eprescribed prescriptions On: 29-Jan-2011 Intent ([id number])By: Clifford DIAS Jamee MYOCARDIAL INFARCTION EDUCATIONBy: On: 11-Jan-2011 Intent Sho Lozano DO, DO, Kathleen FLU VAC, SPLIT, >3 YEARS, INTRAMUSC On: 05-Jan-2011 Intent ([id number])By: Sho Lozano DO Comments: Lot #[id number]/30/12Site-left deltoidgiven by: OSCAR Kaur DO, Kathleen B 12 Injection, 1000 mcg ([id number])By: On: 05-Jan-2011 Intent Sho Lozano DO, DO, Comments: Lot #[id number]-right deltoidDose- 1 mlgiven by: OSCAR Kaur IMMUNIZ ADMNIN, 1 VAC, SNGL/COMBO On: 05-Jan-2011 Intent ([id number])By: Sho Lozano DO, DO, Kathleen Eprescribed prescriptions On: 05-Oct-2010 Intent ([id number])By: Sho Lozano DO, DO, Kathleen Solu -Medrol Injection, 125 mg On: 10-Jul-2010 Intent ([id number])By: Clifford DIAS Jamee EKG ([id number])By: Sho Lozano DO On: 15-Jun-2010 Intent Sho Lozano DO Comments: nsr no acute chg Holter Monitor 24 hrsBy: Blake DAMON, On: 15-Jun-2010 Intent Sho Carvajal DO Carotid DopplerBy: Blake DAMON, On: 15-Jun-2010 Intent Sho Carvajal DO CT - Brain/HeadBy: Rigo DAMON Jazmin A On: 22-May-2010 Intent Comments: stat call results CT - Sinuses CompleteBy: Rigo DAMON, On: 22-May-2010 Intent Jazmin A Solu -Medrol Injection, 125 mg On: 22-Nov-2009 Intent ([id number])By: Jazmin Sierra DO Comments: Lot #[id number]/1/12Site-left hipDose- 125 mggiven by:[facility] Solu- Medrol Injection, 125mg On: 01-Nov-2009 Intent ([id number])By: Sho Lozano DO, DO, Kathleen IMMUNIZ ADMNIN, 1 VAC, SNGL/COMBO On: 29-Jul-2009 Intent ([id number])By: Sho Lozano DO, DO, Kathleen EKG ([id number])By: Sho Lozano DO On: 29-Jul-2009 Intent Sho Lozano DO Comments: nsr no acute chgs PNEUM VAC ADLT/IMUMNOSPR, SBC/INTRM On: 29-Jul-2009 Intent ([id number])By: Sho Lozano DO Comments: Lot:[id number]:[id number]:0.5Route:IMSite:Left Deltoid Given by: ALY Das DO, Kathleen TDAP VACCINE >7 IM ([id number])By: On: 10-Dec-2008 Intent Sho Lozano DO, DO, Comments: Lot #[id number]-amfc deltoidgiven by:NORIS Berkowitz Solu -Medrol Injection, 125 mg On: 09-Aug-2008 Intent ([id number])By: Jazmin Sierra DO Comments: lot # [id number]-ZADYBLlcuvt-AKuuly- 2ML tolerated well Ashleigh LU CT - Abdomen & Pelvis (IV Contrast On: 29-Oct-2007 Intent Needed)By: Sho Lozano DO, DO, Kathleen SPECIMEN HNDLNG/TRNSPRT, OFFC > LAB On: 22-Jan-2007 Intent ([id number])By: Elida Horton CNP Rocephon Injection, 2 Gm On: 22-Jan-2007 Intent ([id number])By: Rebekah Tian LPN Comments: given by Dr. Lozano lot [id number] exp 05-10, IV flushed with 0.5cc before and after iv med with 0.9% sodium chloride. IV Infusion ([id number])By: Asmita, On: 22-Jan-2007 Intent Rebekah MOORE IV Infusion ([id number])By: Asmita, On: 21-Jan-2007 Intent Rebekah MOORE Comments: 2g given trough IV by Constance Donnie lot [id number] 05-10 iv flushed with 0.9% sodum chloride 0.5cc before and after. Venous Doppler - RightBy: Clifford On: 20-Jan-2007 Intent Elida DIAS Comments: Rt lower ext doppler am SOLOMON INFUSION, NORMAL SALINE SOLUTION , On: 20-Jan-2007 Intent 250 CC ([id number])By: Elida Horton CNP THER/PROPH/DIAG IV INF, INIT On: 20-Jan-2007 Intent ([id number])By: Elida Horton CNP Comments: #22 gauge needle placed to right forearm per erussell without difficulty Rocephin Injection, 2 Gram On: 20-Jan-2007 Intent ([id number])By: Elida Horton CNP Comments: Lot # [id number] exp 05-10 per erussell Toradol Injection, 30 mg On: 13-Dec-2006 Intent ([id number])By: Sho Lozano DO Comments: given in left hip, 1cc, lot#[id number], exp.01.09, W[place] Sho Lozano DO Planned Medications [...] Rash : Patient Instructions Indication: Rash Encounters Review On: 14-Feb-2018 13:22 Encounter Reason: Follow up for chronic medical issues - The patient feels well with minor complaints (still having cough from a couple months ago), has decreased energy level and is sleeping well. Patient has been compl iant with instructions. Current medication use: no side effects (lexapro weight gain? want to try something else). Patient sleeps 7 hours per night. Impact of disease: no emotional impact. Nutrition: ba lanced diet and supplemental vitamins. The medical issues the patient is following up for include blood sugar issues and high blood pressure.Encounter Diagnosis: Abnormal glucose tolerance test (Renamed from Abnormal glucose tolerance test (GTT)), Influenza vaccination declined (Renamed from Refused influenza vaccine), Urinary frequency, HTN (hypertension), benign, Hypothyroidism, unspecified, Anxiety (300.00) [facility] Annotation/Addendum On: 09-Oct-2017 8:47 Encounter Diagnosis: Unspecified [...] leg swelling was placed on cipro Jan 15,15,16. The swelling of rt leg and pain [...] leg swelling was placed on cipro Jan 15,15,16. The swelling of rt leg and pain [...]
--- OUTSIDE RECORDS SUMMARY | 2018-05-28 06:41 | XMS RPT_ITS | Continuity of Care Document ---
:1970 Author Organization [facility] Address [address] [place] [address] Phone Care Team Providers Name Role Phone [...] days Quantity: 30 {Tablet} Refills: 7 Ordered:13-Jan-2018 Blake DAMONAdelfo DO Sho Start : 13-Jan-2018 Active VITAMIN D3, 28755KNNF (Oral Capsule) 1 Capsule 2 x week [...] : 22-Mar-2010 End : 22-May-2010 Inactive NYSTATIN, 495154CPAC/GM (External Powder) Powder TID/PRN to affected area [...] Lower Extremity Result: Comments: See Note; NOTES: [facility] Cardiovascular Services [address] [place] [address] Venous Duplex US, Unilateral 12/04/17 1529 MR#: [id number] Acct: [id number] Name: MARIAELENA ALMEIDA Rep #: [id number] : 1970 47 From: Gerard Ford MD Attending Dr: Eric John MD Status: REG CLI Ordering Dr: Eric John MD Date: 12/04/17 Location: [facility] Sex: F C Admitted : Reason [...] Dictated: 12/04/17 1529 Date Transcri bed: 12/06/172124 Girls Tennis Coach: Signed 11-Nov-2017 Discharge Instruction Result: Comments: See Note; NOTES: [facility] Medical Records Department [address] [place] [address] Discharge Instruction 11/11/172211 MR#: [id number] Acct: [id number] Name: MARIAELENA POTTER Rep #: [id number] : 1970 47 From: Indio Chisholm DO [...] your Primary Care Provider. Call [facility] ([phone]) or report to the closest Emergency Room. Call 911 if necessary. 11/11/172212 <Electronically signed by Indio Chisholm DO> Date Indio Chisholm DO Cosigner Signature (If Indicated): Date CC: Sho Lozano DO 11-Nov-2017 Emergency Department Summary Result: Comments: See Note; NOTES: [facility] Medical Records Department [address] [place] [address] Emergency Department Summary 11/11/172208 MR#: [id number] Acct: [id number] Name: MARIAELENA FORMAN Rep #: [id number] : 1970 47 From: Indio Chisholm DO [...] contusion] This note w as generated with [employer] dictation software. It may contain incorrect words, [...] your Primary Care Provider. Call [facility] ([phone]) or report to the closest Emergency Room. Call 911 if necessary. 11/11/17 2211 & amp;#60;Electronically signed by Indio Chisholm DO> Date Indio Chisholm DO Cosigner Signature (If Indicated): Date CC: Sho Lozano DO 11-Nov-2017 Knee 3 Views Result: Comments: See Note; NOTES: [facility] Imaging Services [address] [place] [address] Knee 3 Views MR#: [id number] Acct: [id number] Name: MARIAELENA FORMAN Saray Rep #: [id number] : 1970 F 47 From: Olena Gilman MD PCP: Sho Lozano DO Status: REG ER Study: Knee 3 Views Date of Exam: 11/11/17 Exam# [id number] Ordering Dr: Indio Chisholm DO STUDY: X-RAY [...] CC: Sho Lozano DO; Indio Chisholm DO Girls Tennis Coach: Signed 11-Nov-2017 Hand Min 3 Views Result: Comments: See Note; NOTES: [facility] Imaging Services [address] [place] [address] Hand Min 3 Views MR#: [id number] Acct: [id number] Name: MARIAELENA FORMAN Rep #: [id number] : 1970 F 47 From: Olena Gilman MD PCP: Sho Lozano DO Status: REG ER Study: Hand Min 3 Views Date of Exam: 11/11/17 Exam# [id number] Ordering Dr: Indio Chisholm DO STUDY: X-RAY - LE FT HAND REASON FOR EXAM: Female, 47 years old. Fall. Pain around second MCP joint. TECHNIQUE: 3 view(s) of the hand. COMPARISON: None. FINDINGS: Slight limitation due to ring on the fourth digit. There is no fracture or dislocation. Joint spaces are well-maintained. Soft tissues and bony structures are unremarkable. ORDER # : [id number] RAD/Hand Min 3 Views IMPRESSION: Normal x-ray examination of the hand. Electronically Signed: Olena Gilman MD at 21:55 EDT Tel , Service support , F ax [phone] CC: Sho Lozano DO; Indio Chisholm DO Girls Tennis Coach: Signed 11-Nov-2017 Knee 3 Views Result: Comments: See Note; NOTES: [facility] Imaging Services [address] [place] [address] Knee 3 Views MR#: [id number] Acct: [id number] Name: MARIAELENA FORMAN Rep #: [id number] : 1970 F 47 From: Olena Gilman MD PCP: Sho Lozano DO Status: REG Study: Knee 3 Views Date of Exam: 11/11/17 Exam# [id number] Ordering Dr: Indio Chisholm DO STUDY: X-RAY [...] CC: Sho Lozano DO; Indio Chisholm DO Girls Tennis Coach: Signed 31-Oct-2017 Operative Report Result: Comments: See Note; NOTES: [facility] Medical Records Department [address] [place] [address] Operative Report 10/31/17 1552 MR#: [id number] Acct: [id number] Name: MARIAELENA FORMAN Rep #: [id number] : 1970 47 From: Cathleen Fields MD PCP: Sho Lozano DO Status: REG [facility] Location: [place] [address] Report of Operation Date of Procedure: 10/31/17 [...] Normal-appearing cervix, vag isha and endocervical canal. passenger locomotive engineer: Shabnam Cuadra MS3 Type of Anesthesia:: General [...] NOTES: [facility] Medical Records Department [address] [place] [address] Instructions for Home/Discharge Instructions 10/31/17 1551 MR#: [id number] Acct: [id number] Name: MARIAELENA FORMAN Rep #: [id number] : 1970 47 From: Cathleen Fields MD PCP: Sho Lozano DO Status: REG [facility] Discharge Diet: No Restrictions Discharge Activity: Return [...] w Up With: Cathleen Fields MD - [phone] When: Dr. Fields's office 2-4 weeks or as needed 10/31/17 3472 <Electronically signed by Cathleen Fields MD> Date Cathleen Fields MD CC: Sho Lozano DO 02-Oct-2017 Venous Duplex Lower Extremity Result: Comments: See Note; NOTES: [facility] Cardiovascular Services [address] [place] [address] Venous Duplex US - Panda Extrem 10/02/17 1307 MR#: [id number] Acct: [id number] Name: MARIAELENA FORMAN Rep #: [id number] : 1970 47 From: Gerard Ford MD [...] Dictated: 10/02/17 1307 Date Transcribed: 10/02/17 1508 Girls Tennis Coach: Signed 02-Oct-2017 Chest PA and Lateral Result: Comments: See Note; NOTES: [facility] Imaging Services [address] [place] [address] Chest PA and Lateral MR#: [id number] Acct: [id number] Name: MARIAELENA FORMAN Rep #: [id number] : 1970 F 47 From: Arthur Sandhu MD PCP: Sho Lozano DO Status: REG CLI Study: Chest PA and Lateral Date of Exam: 10/02/17 Exam# [id number] Ordering Dr: Sho Lozano DO STUDY: X-RAY [...] Service support , CC: Sho Lozano DO Girls Tennis Coach: Signed 28-Mar-2017 Abdomen/Pelvis WITH Contrast Result: Comments: See Note; NOTES: [facility] Imaging Services [address] [place] [address] Abdomen/Pelvis WITH Contrast MR#: [id number] Acct: [id number] Name: MARIAELENA FORMAN ep #: [id number] : 1970 F 46 From: Emre Tan MD PCP: Sho Lozano DO Status: REG CLI Study: Abdomen/Pelvis WITH Contrast Date of Exam: 03/28/17 Exam# [id number] Ordering Dr: Sho Lozano DO STUDY: CT [...] Emre Tan MD at 10:10 EST Tel [phone], Service support , CC: Sho Lozano DO Girls Tennis Coach: Signed 29-Jul-2016 Brain/Head without Contrast Result: Comments: See Note; NOTES: [facility] Imaging Services [address] [place] [address] Verdana 4d Brain/Head without Contrast MR#: [id number] Acct: [id number] Name: MARIAELENA FORMAN Saray Rep #: [id number] : 1970 F 45 From: Meme Tolliver MD PCP: Sho Lozano DO Status: [facility] ER Study: Brain/Head without Contrast Date of Exam: 07/29/16 Exam# [id number] Ordering Dr: Edu Love MD STUDY: CT [...] CC: Sho Lozano DO; Edu Love MD Girls Tennis Coach: Signed 27-Sep-2015 CTA Chest W/WO Contrast Result: Comments: See Note; NOTES: [facility] Imaging Services [address] [place] [address] Verdana 4d CTA Chest W/WO Contrast MR#: [id number] Acct: [id number] Name: MARIAELENA HAMEED Rep #: [id number] : 1970 F 45 From: Geronimo Vallejo DO PCP: Sho Lozano DO Status: REG CLI Study: CTA Chest W/WO Contrast Date of Exam: 09/27/15 Exam# [id number] Ordering Dr: Ranjeet Newman STUDY: CTA CHEST [...] Geronimo Vallejo DO at 18:56 EDT Tel [phone], Service support [phone], CC: Sho Lozano DO; Ranjeet Newman Girls Tennis Coach: Signed 27-Sep-2015 Venous Duplex Lower Extremity Result: Comments: See Note; NOTES: [facility] Cardiovascular Services [address] [place] [address] Venous Duplex US, Unilateral 09/27/15 1544 MR#: [id number] Acct: [id number] Name: MARIAELENA FORMAN Saray Rep #: [id number] : 1970 45 From: Gerard Ford MD [...] Date Dictated: 09/27/15 1544 Date Transcribed: 09/27/15 1637 Girls Tennis Coach: Signed 20-Jun-2015 Sleep Study Report Result: Comments: See Note; NOTES: [facility] [address] [place] [address] Polysomnography with NCPAP MR#: [id number] Acct: [id number] Name: MARIAELENA POTTER Rep #: [id number] : 1970 44 From: Art Arevalo MD [...] version). Please note that a reference to [facility] AHI in this report is consistent with the current Hypopnea definition according to Medicare Criteria and an [facility] AHI reference is consi stent with the current Hypopnea definition according to the AASM criteria and is recognized by [facility] as the RDI. PROCEDURE: The study was attended continuously by a cable television technician. Monitored paramet ers included left and [...] calculated body mass index of 50.1 and [place] Sleepiness Scale score of 11/24. The patient [...] cm of water with humidification. Instead it sivakuamr ears CPAP settings of 10 cm of [...] Arevalo Jr., M.D. Art Arevalo MD T: MIGEUL JOB: [id number] CC: Art hutchins MD 28 2806/20/15 1556 <Electronically signed by Art Arevalo MD> Date Art Arevalo MD Co-si gnature (if applicable) Date Signed 20-May-2015 Operative Report Result: Comments: See Note; NOTES: [facility] Medical Records Department [address] [place] [address] Operative Report MR#: [id number] Acct: [id number] Name: MARIAELENA FORMAN Rep #: [id number] : 1970 44 From: Raymundo Ordonez MD [...] cecum and ileocecal valve area was achieved. [place] el prep was adequate. There was still [...] Raymundo Ordonez MD T: NT S JOB: [id number] 05/20/15 0555 <Electronically signed by Raymundo Ordonez MD> Date Raymundo Ordonez MD Cosigner Signature (If Indicat ed): Date CC: Sho Lozano DO; Raymundo Ordonez MD Date Dictated: 05/19/15 1008 Date Transcribed: 05/19/15 100 Girls Tennis Coach: Signed 13-May-2015 Sleep Study Report Result: Comments: See Note; NOTES: [facility] [address] [place] [address] Unattended Sleep Study MR#: [id number] Acct: [id number] Name: MARIAELENA FORMAN Rep #: [id number] : 1970 44 From: Silverio Nolen MD [...] version). Please note that a reference to [facility] AHI in this report is consistent with the current Hypopnea definition according to Medicare Criteria and an [facility] AHI reference is cons istent with the current Hypopnea definition according to the AASM criteria and is recognized by [facility] as the RDI. PROCEDURE: The study was unattended in the patient's home setting. Monitored parameter s included airflow with nasal pressure transducer, chest and abdominal plethysmography efforts, and oxygen saturation with heart rate. INTRODUCTION: This is an ApneaLink apnea screening study perfo rmed on this 44-year-old female with a history of asthma, gastroesophageal reflux disease, hypothyroidism, and an [place] Sleepiness Scale score of 11 as well [...] abnormal ApneaLink screening study consist ent with qhhy-zy-guadpqmo obstructive sleep apnea. If this is felt to be clinically significant, formal CPAP titration study should be performed. Silverio Nolen MD T: NTS JOB: [id number] CC: Silverio Nolen MD 32 05/13/15 1517 <Electronically signed by Silverio Nolen MD> Date Silverio mcclure MD Co-signature (if applicable) Date Signed 18-Apr-2015 Emergency Department Summary Result: Comments: See Note; NOTES: [facility] Medical Records Department [address] [place] [address] Emergency Department Summary MR#: [id number] Acct: [id number] Name: BREEZY MORTONMARIAELENA Saray Rep #: [id number] : 1970 44 From: Jesse Barrera MD PCP: Sho Lozano DO Status: [facility] DATE OF SERVICE: 04/08/2015 CHIEF COMPLAINT: Chest pain. HISTORY OF IN ESENT ILLNESS: This is a 44-year-old female [...] Jesse Barrera MD T: NTS JOB : [id number] 04/18/15 0309 <Electronically signed by Jesse Barrera MD> Date Jesse Barrera MD Cosigner Signature (If Indicated): D ate CC: Sho Lozano DO Date Dictated: 04/08/151722 Date Transcribed: 04/08/151722 Girls Tennis Coach: Signed 12-Apr-2015 12 Lead Electrocardiogram Result: Comments: See Note; NOTES: [facility] Cardiovascular Services [address] [place] [address] 12 Lead EKG 04/08/15 1608 MR#: [id number] Acct: [id number] Name: MARIAELENA ARROYO Rep #: [id number] : 1970 44 From: Tommie Luciano MD [...] ECG Confirmed by WISAM RODRIGUES, TOMMIE (1089), video tape editor PERCY JOHN (56) on 04/12/2015 8:32:04 AM Referred By: SOUTH Confirmed By:TOMMIE LUCIANO MD 04/12/15 0832 Date Tommie Luciano MD CC: Sho Lozano DO Date Dictated: 04/08/15 160 Date Transcribed: 04/08/151607 Girls Tennis Coach: Signed 12-Apr-2015 12 Lead Electrocardiogram Result: Comments: See Note; NOTES: [facility] Cardiovascular Services [address] [place] [address] 12 Lead EKG 04/08/15 1715 MR#: [id number] Acct: [id number] Name: MARIAELENA ARROYO Rep #: [id number] : 1970 44 From: Tommie Luciano MD [...] ECG Confirmed by TOMMIE LUCIANO MD ([id number]), video tape editor PERCY JOHN (56) on 04/12/2015 8:32:21 AM Referred By: CAL Confirmed By:TOMMIE LUCIANO MD 04/12/15 0832 Date Tommie Luciano MD CC: Sho Lozano DO Date Dictated: 04/08/151714 Date Transcribed: 04/08/151714 Girls Tennis Coach: Signed 08-Apr-2015 Discharge Instruction Result: Comments: See Note; NOTES: [facility] Medical Records Department [address] [place] [address] Discharge Instruction 04/08/151722 MR#: [id number] Acct: [id number] Name: MARIAELENA FORMAN Rep #: [id number] : 1970 44 From: Jesse Barrera MD PCP: Sho Lozano DO Status: REG ER ED Disposition - Plan for ED Patient: Chief Complaint: Chest Lulu n Instructions: ED Chest Pain, Noncardiac What to do if you have Problems For any increased pain, shortness of breath, bleeding, nausea or vomiting, chest pain, or any unexpected problems, conta ct your doctor. Call [facility] ([phone]) or report to the closest Emergency Room. Call 911 if necessary. 04/08/151723 <Electronically signed by Jesse Barrera MD> Da te Jesse Barrera MD Cosigner Signature (If Indicated): Date CC: Sho Lozano DO 08-Apr-2015 Chest PA and Lateral Result: Comments: See Note; NOTES: [facility] Imaging Services [address] [place] [address] Verdana 4d Chest PA and Lateral MR#: [id number] Acct: [id number] Name: MARIAELENA FORMAN Rep #: [id number] : 1970 F 44 From: Darryl Murphy MD PCP: Sho Lozano DO Status: REG ER Study: Chest PA and Lateral Date of Exam: 04/08/15 Exam# [id number] Ordering Dr: Jesse Orona MD STUDY: X-RAY [...] MD at 17:26 EST , Service support [phone], RAD/Chest PA and Lateral IMPRESSION: No acute cardiopulmonary pathology Electronically Signed: Darryl Murphy MD at 17:26 EST Tel , Service support [phone], CC: Jesse Barrera MD; Sho Lozano DO Girls Tennis Coach: Signed 16-Nov-2014 Spirometry (03236) Comments: ok stable Result: 16-Nov-2014 ELECTROCARDIOGRAM, COMPLETE (ECG) (83161) Comments: nsr no acute chg Result: [MEASUREMENTS ANALYSIS] Date of Test: 11/16/2014 14:41:53; Heart Rate: 66; IN Interval: 190; QRS: 110; QT Interval: 434; Corrected QT Interval (QTc): 444; P Wave [place]: 23; QRS Wave [place]: 10; T Wave [place] : 21; Blood Pressure: 140/76 [ECG DIAGNOSTIC STATEMENTS] Date of Test: 11/16/2014 14:41:53; Summary: Sinus Rhythm -Nonspecific QRS widening. 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 Status: Active Tobacco use: Never smoker. Comments: radha mullins 5.3.12 Status: Inactive Smoking Status Name Dates Details Never smoker Vital Signs Date Test Result Details 4-Bbu-944285:20 Pulse 73 /min Comments: Pattern: Regular Respiration [...] kg/m2 Body Surface Area Calculated 2.91 m2 41-Ysz-952212:03 Pulse 86 /min Comments: Pattern: Regular O2 [...] Value Details :39 Crystals, Body Fluid Comments: [facility] [address] [place], [place], [address] PATH REV Reviewed (Normal) Comments: Negative for malignant cells and crystals.Bloody specimen.Graham Velez M.D. 12/05/17 AMENDED REPORT 12/05/17 1337 PATH REV previously reported as: Will follow SOURCE/BF SYNOVIAL (Normal) CRYSTALS/BF SEE PATH REV (Normal) 7-Mkh-139066:39 Culture, Body Fluid Comments: [facility] [address] [place], [place], [address] CUBF See Note (Normal) Comments: RESULTS CALLED TO DR JOHN 12/04/171920 Gokul Boo. REPORT READ BACK BY DR JOHN. List Antibiotics Last 48 Hours? UNKList Antibiotics to be Started? UNKGram StainGram Stain 4+ Gram positive diplococci 5-Cve-293276:39 Culture, Body Fluid Comments: [facility] [address] [place], [address] CUBF See Note (Normal) Comments: AMENDED Results called on 12/05/17 by [place]ED [place] [address] .List Antibiotics Last 48 Hours? UNKList Antibiotics to be Started? UNKGram StainCentrifuged Specimen? Culture performed on centrifuged specimen Gram Stain 4+ Red Blood Cells Rare White Blood Cells No organisms seen Body Fluid CultCulture exhibits no growth. Cult, AnaerobicNo growth in 5 days. 8-Edt-710928:39 Synovial Fluid RBC, WBC AND Comments: [facility] [address] [place], [address] Diff PATH COM/SYFL May follow (Normal) OTHER [...] Bloody (Normal) SYNOVIAL SOURCE LEFT LEG (Normal) 69-Fis-79493: ENDOMETRIAL See Note (Normal) Comments: [facility] [address] [place], [place], [id number] 00 BX/CURETTINGS Comments: Patient: MARIAELENA FORMAN : 1970 (47/F) Acct Num: [id number] Phys: Donnie RODRIGUES,Cathleen Unit Num: [id number] [place] [facility] Specimen: [id number] Received: 11/01/17 - 1002 Spec T ype: [...] one cassette. / AM:nancy 11/01/17 TC:5 CPT: 88888 HEADER OPERATION: Hysteroscopy, D AND C, resection, Symphion PRE-OP DIAGNOSIS: Postmenopausal bleeding, thickened endometrium TISSUE SUBMITTED: Endometrial curettings MICROSCOPIC DESCRIPTION Slides are reviewed. MICROSCOPIC DIAGNOSIS Endometrial curettings: Mildly disordered proliferative endometrium. Fragments of myometrium. SJ:nancy 11/05/17 Signed Graham Velez 11/05/17 <signature on file> 42-Dwg-317698:30 Type AND Screen Comments: Reason for Type AND Screen/Red Cells: [facility] [address] [place], [address] Antibody Screen NEGATIVE (Normal) BLOOD TYPE GEL B POSITIVE (Normal) 53-Uor-076849:15 ,Urine Comments: [facility] [address] [place], [address] HCGUQUAL Negative {Negative} (Normal) Comments: Very dilute urine specimens, as indicated by a low specificgravity, may not contain sales promotion representative levels of hCG.If is still suspected, a first morning urinespecimen should be collected 48 hours later and tested. 4-Zec-676300:34 CBC With Differential/Platelet Comments: PATIENT WAS FASTINGPERFORMED BY: [employer] [id number] BY: [facility] Hospital - AkronHoneyBook Inc.Christ HospitalWleqwq5864 [facility] [id number] Immature Grans (Abs) 0.0 {x10E3/uL} (Normal) Range: [...] 3.77-5.28 WBC 7.2 {x10E3/uL} (Normal) Range: 3.4-10.8 0-Xap-393545:34 Comp. Metabolic Panel Comments: PATIENT WAS FASTINGPERFORMED BY: [employer] [id number] BY: [employer] [facility] ServicesChrist HospitalOdulve3754 [facility] [id number] (14) ALT (SGPT) 39 [iU]/L (Abnormal) Range: [...] 6-24 Glucose 96 mg/dL (Normal) Range: 65-99 3-Ylu-741252:34 NMR LipoProfile Comments: PATIENT WAS FASTINGPERFORMED BY: BN [facility] [address] [id number] BY: CB [facility] Cqldbq1217 [facility] [id number] LP-IR Score 87 (Abnormal) Comments: INSULIN RESISTANCE MARKER <--Insulin Sensitive Insulin Resistant--> Percentile in Reference PopulationInsulin Resistance ScoreLP-IR Score Low 25th 50th 75th High <27 27 45 63 >63LP-IR Score is inaccurate if patient is non-fasting. .The LP-IR score is a laboratory developed i [facility] that has beenassociated with insulin resistance [...] were developed and their performance characteristicsdetermined by [employer]. These assays have not been cleared by [...] 2.270 {uIU/mL} Comments: PATIENT WAS FASTINGPERFORMED BY: [facility] [place] [address] [facility] [id number] BY: [facility] [address] [facility] [place] [id number] 11:34 (Normal) Range: 0.450-4.500 03-Oct-2017 Vitamin D, 25-Hydroxy 15.4 ng/mL Comments: PATIENT WAS FASTINGPERFORMED BY: [facility] [id number] BY: [facility] Rgbqxu4210 Diaz RoadDublin [place] [id number] 11:34 (Abnormal) Range: 30.0-100.0 Comments: Vitamin D deficiency has been defined by the [place] of[facility] Hospitalcine and an Endocrine Society practice guideline as alevel of serum 25-OH vitamin D less than 20 ng/mL (1,2).The Endocrine Society went on to further define vitamin Dinsufficiency as a level between 21 and 29 ng/mL (2).1. IOM ([place] of Medicine). 2010. Dietary reference intakes for calcium and D. [place]: The National Academies Press.2. Sharon MF, Adarsh NC, Lisa SANDERSON, et al. Evaluation, treatment, and prevention of vitamin D deficiency: an Endocrine Society clinical practice guideline. JCEM. 2010; 96(7):1911-30. 3-Sxn-317272:34 Microscopic Examination Comments: PATIENT NOT FASTINGPERFORMED BY: [facility] Tjzsyd1557 [facility] [place] [id number] Bacteria None seen (Normal) Mucus Threads Present (Normal) Epithelial Cells (non renal) 0-10 {/hpf} (Normal) Range: 0 - 10 RBC 0-2 {/hpf} (Normal) Range: 0 - 2 WBC 0-5 {/hpf} (Normal) Range: 0 - 5 9-Dsl-090925:34 URINALYSIS, W/ MICRO Comments: PATIENT NOT FASTINGPERFORMED BY: [facility] Axwmpp0715 [facility] [place] [id number] Information: [id number] (99458) Microscopic Examination See below: (Normal) Comments: Microscopic was indicated and was performed. Nitrite, Urine Negative (Normal) Urobilinogen,Semi-Qn 0.2 mg/dL (Normal) Range: 0.2-1.0 Bilirubin Negative (Normal) Occult Blood Negative (Normal) Ketones Negative (Normal) Glucose Negative (Normal) Protein Negative (Normal) WBC Esterase Trace (Abnormal) Appearance Clear (Normal) Urine-Color Yellow (Normal) pH 7.0 (Normal) Range: 5.0-7.5 Specific [place] 1.012 (Normal) Range: 1.005-1.030 8-Mqa-402276:34 MICROALBUMIN: CREATININE RATIO Comments: PATIENT NOT FASTINGPERFORMED BY: [employer] Gzhvzo8351 [facility] [id number] (53390) AND (24769) Alb/Creat Ratio <10.6 {mg/g_creat} (Normal) Range: 0.0-30.0 Albumin, Urine <3.0 ug/mL (Normal) Creatinine, Urine 28.2 mg/dL (Normal) 7-Kti-884021:17 HgA1C , Office (58418) HgA1C , Office 6.0 % (Normal) Range: 4.6 - 7.1 7-Qdb-625912:17 Blood Glucose , Office (66501) Blood Glucose , Office 106 (Normal) 30-Ehv-987373:06 URINE KATHY CULTURE-IDENTIFICATN Comments: PATIENT NOT FASTINGPERFORMED BY: [facility] Rkhtuf1371 [facility] [id number] Information: SRC:LAURE (15235) Result 1 BETAGB (Abnormal) Comments: Beta hemolytic [...] (CLSI 2011) Urine Final report (Abnormal) Culture,Comprehensive 61-Hgp-285178:07 Urinalysis, Office (48854) UA - LEUKOCYTE ESTERASE Negative (Normal) UA - NITRITE Negative (Normal) URINE UROBILINGN JASON TIMED 2 mg/dL (Normal) UA - PROTEIN Negative mg/dL (Normal) UA - PH 7.5 (Normal) UA - BLOOD Negative (Normal) UA - SPECIFIC GRAVITY 1.015 (Normal) UA - KETONES Negative mg/dL (Normal) UA - BILIRUBIN Negative (Normal) UA - GLUCOSE Negative (Normal) 1-Mxk-499720:26 HEPATITIS PANEL (72753) Comments: PATIENT NOT FASTINGPERFORMED BY: [employer] [facility] [id number] Hep C Virus Ab 0.1 {s/co_ratio} (Normal) Range: 0.0-0.9 Comments: Negative: < 0.8 Indeterminate: 0.8 - 0.9 Positive: > 0.9 . The CDC recommends that a positive HCV antibody result be followed up with a HCV Nucleic Acid Amplification test (518941). Hep B Core Ab, IgM Negative (Normal) HBsAg Screen Negative (Normal) Hep A Ab, IgM Negative (Normal) 3-Msg-927649:26 ANTIMITOCHONDRIAL ANTIBODY Comments: PATIENT NOT FASTINGPERFORMED BY: [employer] [facility] [id number] (53997) Mitochondrial (M2) Antibody <20.0 {Units} (Normal) Range: 0.0-20.0 Comments: Negative 0.0 - 20.0 Equivocal 20.1 - 24.9 Positive >24.9 . Mitochondrial (M2) Antibodies are found in 90-96% of patients with primary biliary cirrhosis. 3-Epy-530376:26 TRANSFERRIN (47952) Comments: PATIENT NOT FASTINGPERFORMED BY: [employer] Ltwgbh7655 [facility] [id number] Transferrin 310 mg/dL (Normal) Range: 200-370 2-Vtz-198330:26 GGT (GAMMA GLUTAMYLTRANSFERASE) Comments: PATIENT NOT FASTINGPERFORMED BY: [employer] [facility] [id number] (63184) GGT 40 [iU]/L (Normal) Range: 0-60 3-Okq-569151:26 FERRITIN (57805) Comments: PATIENT NOT FASTINGPERFORMED BY: [facility]6370 [facility] [id number] Ferritin, Serum 55 ng/mL (Normal) Range: 15-150 :26 CMV IGM ANTBDY (60482) Comments: PATIENT NOT FASTINGPERFORMED BY: [place] 0685070 [facility] [id number] Cytomegalovirus (CMV) Ab, IgM <30.0 AU/mL (Normal) Range: 0.0-29.9 Comments: Negative <30.0 Equivocal 30.0 - 34.9 Positive >34.9 A positive result is generally indicative of acute infection, reactivation or persistent IgM production. :26 CERULOPLASMIN (38216) Comments: PATIENT NOT FASTINGPERFORMED BY: [address] [id number] Ceruloplasmin 35.3 mg/dL (Normal) Range: 19.0-39.0 :26 ASM (ANTI SMOOTH MUSCLE Comments: PATIENT NOT FASTINGPERFORMED BY: [address] [id number] ANTIBODY) (93701) Actin (Smooth Muscle) Antibody 8 {Units} (Normal) Range: 0-19 Comments: Negative 0 - 19 Weak positive 20 - 30 Moderate to strong positive >30 . Actin Antibodies are found in 52-85% of patients with autoimmune hepatitis or chronic active hepatitis and in 22% of patients with primary biliary cirrhosis. :26 ANTI-LIVER/KIDNEY MICROSOMAL Comments: PATIENT NOT FASTINGPERFORMED BY: [place] 0685070 [facility] [id number] ANTIBODY (75649) Liver-Kidney Microsomal Ab <1.0 {Units} (Normal) Range: 0.0-20.0 Comments: Negative 0.0 - 20.0 Equivocal 20.1 - 24.9 Positive >24.9 . LKM type 1 antibodies are detected in patients with autoimmune hepatitis type 2 and in up to 8% of patients with chronic HCV infection. :26 RIKA (ANTINUCLEAR ANTIBODY) Comments: PATIENT NOT FASTINGPERFORMED BY: [address] [place] [id number] (30754) RIKA Direct Negative (Normal) 7-Lua-188780:26 GERZP-RHMITSMALNR-GSQGR (37137) Comments: PATIENT NOT FASTINGPERFORMED BY: [facility] Usltwb2308 Diaz RoadDublin [place] [id number] AFP, Serum, Tumor Marker 6.6 ng/mL (Normal) Range: 0.0-8.3 Comments: Jaciel ECLIA methodology 25-Tpq-594879:05 HgA1C , Office (84138) HgA1C , Office 5.8 % (Normal) Range: 4.6 - 7.1 61-Iwa-431971:07 C-REACTIVE PROTEIN (02363) Comments: PATIENT WAS FASTINGPERFORMED BY: [facility] Yqsspv0745 Diaz RoadDublin [place] [id number] C-Reactive Protein, Quant 5.0 mg/L (Abnormal) Range: 0.0-4.9 75-Tih-869063:07 VITAMIN B-12 (CYANOCOBALAMIN) Comments: PATIENT WAS FASTINGPERFORMED BY: [facility] Cdgaak1987 Diaz RoadDublin [place] [id number] (92865) Vitamin B12 870 pg/mL (Normal) Range: 232-1245 91-Pjy-012134:07 Sed Rate Erythrocyte (54630) Comments: PATIENT WAS FASTINGPERFORMED BY: [facility] Hwzibw5979 Diaz RoadDublin [place] [id number] Sedimentation Rate-Westergren 7 mm/h (Normal) Range: 0-32 04-Dhh-442384:07 CALCIFIDIOL (73523) VIT D 25 Comments: PATIENT WAS FASTINGPERFORMED BY: CB [facility] Jrmzcq2186 Diaz RoadDublin [place] [id number] Vitamin D, 25-Hydroxy 21.8 ng/mL (Abnormal) Range: 30.0-100.0 Comments: Vitamin D deficiency has been defined by the [place] ofMedicine and an Endocrine Society practice guideline as alevel of serum 25-OH vitamin D less than 20 ng/mL (1,2).The Endocrine Society went on to further define vitamin Dinsufficiency as a level between 21 and 29 ng/mL (2).1. IOM ([place] of Medicine). 2010. Dietary reference intakes for calcium and D. [place]: The National Academies Press.2. Sharon MF, Adarsh NC, Lisa SANDERSON, et al. Evaluation, treatment, and prevention of vitamin D deficiency: an Endocrine Society clinical practice guideline. JCEM. 2010; 96(7):1911-30. 21-Fwg-903584:07 METABOLIC PANEL, COMPREHENSIVE Comments: PATIENT WAS FASTINGPERFORMED BY: [employer] LabCoChrist HospitalNolage5691 [facility] [id number] (41569) ALT (SGPT) 35 [iU]/L (Abnormal) Range: 0-32 [...] Glucose, Serum 86 mg/dL (Normal) Range: 65-99 71-Spa-396698:07 CBC W/AUTO DIFF WBC (98111) Comments: PATIENT WAS FASTINGPERFORMED BY: LabCoChrist HospitalOoisgj0082 [facility] [id number] Immature Grans (Abs) 0.0 {x10E3/uL} (Normal) Range: [...] 3.77-5.28 WBC 8.0 {x10E3/uL} (Normal) Range: 3.4-10.8 55-Yww-544035:07 LIPID PANEL (56070) Comments: PATIENT WAS FASTINGPERFORMED BY: LabCoChrist HospitalKcnfor6814 [facility] [id number] LDL/HDL Ratio 3.1 {ratio_units} (Normal) Range: 0.0-3.2 Comments: LDL/HDL Ratio Men Women 1/2 Avg.Risk 1.0 1.5 Av g.Risk 3.6 3.2 2X Avg.Risk 6.2 5.0 3X Avg.Risk 8.0 6.1 LDL Cholesterol Calc 142 mg/dL (Abnormal) Range: 0-99 VLDL Cholesterol Josr 65 mg/dL (Abnormal) Range: 5-40 HDL Cholesterol 46 mg/dL (Normal) Triglycerides 325 mg/dL (Abnormal) Range: 0-149 Cholesterol, Total 253 mg/dL (Abnormal) Range: 100-199 53-Ggb-210474:07 TSH (28218) Comments: PATIENT WAS FASTINGPERFORMED BY: [place] 0685070 [facility] [id number] TSH 2.350 {uIU/mL} (Normal) Range: 0.450-4.500 67-Hue-964745:07 T4, FREE (THYROXINE) (17644) Comments: PATIENT WAS FASTINGPERFORMED BY: [facility]6370 [facility] [id number] T4,Free(Direct) 1.14 ng/dL (Normal) Range: 0.82-1.77 00-Eqy-355784:07 T3, FREE (TRIDOTHYRONINE) (31091) Comments: PATIENT WAS FASTINGPERFORMED BY: [facility]6370 [facility] [id number] Triiodothyronine,Free,Serum 2.7 pg/mL (Normal) Range: 2.0-4.4 28-Rvy-121452:16 CBC-Complete Blood Cnt No Diff Comments: [facility] Z[address]ohsuhua[address] [place], [place], [phone] MPV 11.0 fL (Normal) Range: 6.2-12.0 PLT [...] 4.2-5.4 WBC 8.0 K/mm3 (Normal) Range: 4.4-11.0 08-Kgk-291394:16 Ferritin Comments: Has Patient had X-rays with Contrast this admission? NIs Patient Taking Vitamins or Folic Acid Supplements? [facility] [address] [place], [phone] FERRITIN 28 ng/mL (Normal) Range: 8-252 47-Cam-569255:16 Folates, (Folic Acid) Comments: Has Patient had X-rays with Contrast this admission? NIs Patient Taking Vitamins or Folic Acid Supplements? [facility] [address] [place], [phone] FOLATES 43.90 ng/mL (Abnormal) Range: 3.1-17.5 57-Nwt-533893:16 Free T3 Comments: Has Patient had X-rays with Contrast this admission? NIs Patient Taking Vitamins or Folic Acid Supplements? [facility] [address] [place], [phone] FREE T3 2.4 pg/mL (Normal) Range: 2.18-3.98 00-Dcy-026935:16 Iron Comments: Has Patient had X-rays with Contrast this admission? NIs Patient Taking Vitamins or Folic Acid Supplements? [facility] [address] [place], [phone] IRON 85 ug/dL (Normal) Range: 50-170 20-Lwm-636589:16 Lipid Profile Comments: Has Patient had X-rays with Contrast this admission? NIs Patient Taking Vitamins or Folic Acid Supplements? [facility] [address] [place], [phone] VLDL 29 mg/dL (Normal) Range: 5-40 [...] 200-240 mg/dL Borderline >240 mg/dL High Risk 22-Dmn-851856:16 Liver Profile Comments: Has Patient had X-rays with Contrast this admission? NIs Patient Taking Vitamins or Folic Acid Supplements? [facility] [address] [place], [phone] D BILI 0.15 mg/dL (Normal) Range: 0.00-0.30 T BILI 0.60 mg/dL (Normal) Range: 0.20-1.00 ALT 32 U/L (Normal) Range: 12-78 ALK P 101 U/L (Normal) Range: 45-117 AST 15 U/L (Normal) Range: 15-37 GLOB 4.0 g/dL (Abnormal) Range: 2.3-3.5 ALB 3.6 g/dL (Normal) Range: 3.4-5.0 T PROT 7.6 g/dL (Normal) Range: 6.4-8.2 45-Dqg-309550:16 Magnesium Comments: Has Patient had X-rays with Contrast this admission? NIs Patient Taking Vitamins or Folic Acid Supplements? [facility] [address] [place], [phone] MG 2.1 mg/dL (Normal) Range: 1.8-2.4 92-Tdd-306342:16 Partial Thromboplast Time Comments: [facility] [address] [place], [address] PTT 28.6 s (Normal) Range: 24.1-36.2 95-Eki-191166:16 Phosphorus Comments: Has Patient had X-rays with Contrast this admission? NIs Patient Taking Vitamins or Folic Acid Supplements? [facility] [address] [place], [address] PHOS 2.9 mg/dL (Normal) Range: 2.5-4.9 76-Nsp-086659:16 Prothrombin Time w/INR Comments: [facility] [address] [place], [address] INR 1.0 (Normal) PROTIME 12.5 s (Normal) Range: 11.7-14.9 30-Euy-393581:16 T4 Free Direct Comments: Has Patient had X-rays with Contrast this admission? NIs Patient Taking Vitamins or Folic Acid Supplements? [facility] [address] [place], [phone] T4 FREE DIRECT 0.99 ng/dL (Normal) Range: 0.76-1.46 86-Nry-078832:16 Thyroid Stim Hormone (TSH) Comments: Has Patient had X-rays with Contrast this admission? NIs Patient Taking Vitamins or Folic Acid Supplements? [facility] [address] [place], [address] TSH 1.78 {uIU/mL} (Normal) Range: 0.358-3.74 20-Vjr-625932:16 Vitamin B12 480 pg/mL (Normal) Comments: [facility] [address] [place], [address] Range: 211-911 86-Tsi-136757:40 Basic Metabolic Profile (BMP) Comments: 'TROP' Serial specimen #1, #2, #3, or #4: 1[facility] [address] [place], [address] GAP 7 (Normal) Range: [...] 7-18 GLU 101 mg/dL (Normal) Range: 70-110 78-Hec-505726:40 CBC W/Diff, Automated Comments: [facility] [address] [place], [address] Absolute Lymph 2.73 {X10_3/ul} (Normal) Range: 0.83-4.51 [...] 4.2-5.4 WBC 8.5 K/mm3 (Normal) Range: 4.4-11.0 69-Bbw-018292:40 Partial Thromboplast Time Comments: [facility] [address] [place], [place], [phone] PTT 26.2 s (Normal) Range: 24.1-36.2 :40 Prothrombin Time w/INR Comments: [facility] [address] [place], [phone] INR 0.9 (Normal) PROTIME 11.3 s (Abnormal) Range: 11.7-14.9 77-Nza-008822:40 Troponin-I Comments: 'TROP' Serial specimen #1, #2, #3, or #4: [facility] [address]jfeeemf[address] Wallace[place], [place], [phone] TROPONIN-I < 0.02 ng/mL (Normal) Comments: TROPONIN-I EXPECTED VALUES <0.05 NEGATIVE 0.06 - 0.59 AT RISK OF VA > OR = 0.60 SUGGEST VA 02-May-20169:44 PAP I-G HPV Hi Risk Comments: CYTOLOGY INFORMATION:- CLINICAL INFORMATION: LMP NA- DATE LMP/MENOPAUSE: LMP- COLLECTION VIAL: Thin Prep Vial- FIELD PROPERTY LOSS SPECIALIST SOURCE: CERVICAL- COLLECTION TECHNIQUE: BRUSH ONLY/CERVIX BROOM ONLYCYTOLOGY INFORM ATION:- CLINICAL INFORMATION: LMP NA- DATE LMP/MENOPAUSE: LMP- COLLECTION VIAL: Thin Prep Vial- FIELD PROPERTY LOSS SPECIALIST SOURCE: CERVICAL- COLLECTION TECHNIQUE: BRUSH ONLY/CERVIX BROOM ONLYSpecimen Comment: [id number] Comment: No. of containers..01 CYTYC Thin Prep VialLabCorp (refer to report for specific site)refer to report for address and phone number HPV HC,HGH RISK Negative Comments: This high-risk HPV test detects thirteen high-risk types(16/18/31/33/35/39/45/51/52/56/58/59/68) withoutdifferentiation.Performed at: - [facility] [id number] (Normal) b Director: Marichuy Matt MD, Phone: [phone] at: = - [facility] [id number] Director: Marichuy Matt MD, Phone: [phone] PAPR Comment Comments: The Pap smear is [...] system. (Normal) PERFORM Comment Comments: Shahnaz Molina, Strip Stamp Straightener (ASCP) (Normal) ADEQ Comment Comments: Satisfactory for evaluation. Endocervical and/or squamous metaplasticcells (endocervical component) are present. (Normal) DIAGN Comment Comments: NEGATIVE FOR INTRAEPITHELIAL LESION AND MALIGNANCY. (Normal) :16 TSH (95334) Comments: PATIENT WAS FASTINGPERFORMED BY: Flud6370 Dick or BroPending sale to [facility] [id number] TSH 4.230 {uIU/mL} (Normal) Range: 0.450-4.500 01-Exd-502709:16 CMV ANTIBODY (46210) Comments: PATIENT WAS FASTINGPERFORMED BY: YaDatarp Toggub9105 Dick or BroPending sale to [facility] [id number] Cytomegalovirus (CMV) Ab, IgG >10.00 U/mL (Abnormal) Range: 0.00-0.59 Comments: Negative <0.60 Equivocal 0.60 - 0.69 Positive >0.69 71-Dzs-568386:16 CMV IGM ANTBDY (61737) Comments: PATIENT WAS FASTINGPERFORMED BY: [employer] Yqjfce8363 [facility]Our [facility] Hospitalin [place] [id number] Cytomegalovirus (CMV) Ab, IgM <30.0 AU/mL (Normal) Range: 0.0-29.9 Comments: Negative <30.0 Equivocal 30.0 - 34.9 Positive >34.9 A positive result is generally indicative of acute infection, reactivation or persistent IgM production. :16 EB ANTIBODY VIRAL CAPSID Comments: PATIENT WAS FASTINGPERFORMED BY: [employer]70 Dick or BroPending sale to [facility] [id number] (64154) X2 Interpretation: SPRCS (Normal) Comments: EBV Interpretation [...] <36.0 Equivocal 36.0 - 43.9 Positive >43.9 71-Ljo-280760:16 LDH (LD) (LACTATE DEHYDROGENASE) Comments: PATIENT WAS FASTINGPERFORMED BY: YaDataChrist HospitalGxuoyx6055 [facility] [id number] (65633) LDH 191 [iU]/L (Normal) Range: 119-226 21-Qsk-282884:16 RHEUMATOID FACTOR-QUANT (13702) Comments: PATIENT WAS FASTINGPERFORMED BY: [employer] Carrier ServicesChrist HospitalPaqfki1732 [facility] [id number] RA Latex Turbid. 7.3 {IU/mL} (Normal) Range: 0.0-13.9 32-Qsl-792952:16 RIKA (ANTINUCLEAR ANTIBODY) Comments: PATIENT WAS FASTINGPERFORMED BY: [employer] Carrier ServicesChrist HospitalMadmlx9895 [facility] [id number] (86827) RIKA Direct Negative (Normal) 36-Cgo-079573:16 C-REACTIVE PROTEIN (66949) Comments: PATIENT WAS FASTINGPERFORMED BY: [facility] Betduy2387 [facility] [id number] C-Reactive Protein, Quant 6.4 mg/L (Abnormal) Range: 0.0-4.9 38-Pwb-245900:16 SED RATE ERYTHROCYTE (26914) Comments: PATIENT WAS FASTINGPERFORMED BY: LabCoChrist HospitalPqliix5628 [facility] [id number] Sedimentation Rate-Westergren 6 mm/h (Normal) Range: 0-32 81-Lxh-845954:16 METABOLIC PANEL, COMPREHENSIVE Comments: PATIENT WAS FASTINGPERFORMED BY: LabCoChrist HospitalEkchfx7073 [facility] [id number] (22150) ALT (SGPT) 29 [iU]/L (Normal) Range: 0-32 [...] Glucose, Serum 91 mg/dL (Normal) Range: 65-99 68-Mgd-212573:29 Rapid Strep Test, Office (06517) Rapid Strep Test, Office Negative (Normal) 51-Jpl-584796:34 D-Dimer Quantitative (DVT/PE) Comments: [facility] [address] [place], [place], [address] D-DIMER QUANT 1.38 {FEU/ug/m} (Abnormal) Range: 0.27-0.49 Comments: D-Dimer ELEVATED (>0.49): Additional studies and clinicalassessments are indicated to conclude diagnosis of:Deep Vein Thrombosis (DVT) or Pulmonary Embolism (PE)CRITICAL VALUE CALLED TO DR. NEWMAN09/26 1622 Nancy Jaimes.RESULTS READ BACK BY SAME . 97-Ulv-433644:54 URINE KATHY CULTURE (JASON Comments: PATIENT NOT FASTINGPERFORMED BY: [facility] Huruqe0745 [facility] [id number] Information: SRC:[facility] [id number] COL COUNT) (88328) Result 1 BETAGB (Abnormal) Comments: Beta hemolytic [...] Final report (Abnormal) Culture,Comprehensive :05 Urinalysis, Office (60670) UA - LEUKOCYTE ESTERASE Negative (Normal) UA - NITRITE Negative (Normal) URINE UROBILINGN JASON TIMED Normal mg/dL (Normal) UA - PROTEIN Negative mg/dL (Normal) UA - PH 7 (Normal) UA - BLOOD Negative (Normal) UA - SPECIFIC GRAVITY 1.020 (Normal) UA - KETONES Negative mg/dL (Normal) UA - BILIRUBIN Negative (Normal) UA - GLUCOSE Negative (Normal) 19-May-2015 EGD ([facility]) See Note (Normal) Comments: [facility] [address] [place], [address] 9:16 Comments: Patient: MARIAELENA FORMAN : 1970 (44/F) Acct Num: [id number] Phys: José Luis RODRIGUES,Raymundo Unit Num: [id number] Loc: EN Specimen: [id number] Received: 05/19/15 - 1155 Spec Type: EGD BIOPSY TISSUES TISSUES: COMMENT B-The results of IHC for Helicobacter pylori will be reported separately ([id number]). GROSS DESCRIPTION A - Received is one [...] one cassette. / ANA MARÍA:tyrell 05/19/15 TC:1 CPT:53416 x8 HEADER OPERATION: EGD with biopsy and [...] file> 19-May-2015 IMMUNOHISTOCHEMISTRY See Note (Normal) Comments: [facility] [address] [place], [address] 0:00 Comments: Patient: MARIAELENA FORMAN : 1970 (44/F) Acct Num: [id number] Phys: José Luis RODRIGUES,Raymundo Unit Num: [id number] Loc: EN Specimen: [id number] Received: 05/20/15 - 1133 Spec Type: IMMUNO TISSUES TISSUES: SPECIMEN INFORMATION: Tissue Source: Gastric antrum, biopsy Clinical Info: Rectal bleeding, abdominal pain Specimen Number: [id number] CPT code: 68243 METHODOLOGY: Deparaffinized sections of prefer/formalin-fixed tissue or PAP/DQ stained slides are incubated with monoclonal/polyclonal antibodies/oligonucleotide probes. Localization is made via bi otin free immunoperoxidase method. Appropriate controls are performed and reacted as expected. Results on target cell population are indicated in the following table: RESULTS: ANTIBODY / CLONE RESULT H Pylori (polyclonal) negative These tests were developed and their performance characteristics determined by [facility]. They ma y not have been cleared or approved by the U.S. Food and Drug Administration. The FDA has determined that such clearance or approval is not necessary. INTERPRETATION: Gastric antrum, biopsy: Nega tive for Helicobacter pylori organisms. SJ:tyrell 05/20/15 PHYSICIAN AND INSTITUTION [address] [address] Signed Graham Velez 05/20/15 <signature on file> 1-Ugb-378848:22 METABOLIC PANEL, COMPREHENSIVE Comments: PATIENT WAS FASTINGPERFORMED BY: LabCoChrist HospitalBhkyou1113 [facility] [id number] (49971) ALT (SGPT) 26 [iU]/L (Normal) Range: 0-32 [...] Glucose, Serum 85 mg/dL (Normal) Range: 65-99 3-Zdf-789984:22 CBC W/AUTO DIFF WBC Comments: PATIENT WAS FASTINGPERFORMED BY: [facility]Prom[facility]6370 [facility] [id number] Information: [id number] (86262) Immature Grans (Abs) 0.0 {x10E3/uL} (Normal) Range: [...] 3.77-5.28 WBC 6.5 {x10E3/uL} (Normal) Range: 3.4-10.8 0-Fzn-499066:22 CALCIFIDIOL (95887) VIT D 25 Comments: PATIENT WAS FASTINGPERFORMED BY: [employer] (MCTAS: [place]) [facility]wy[facility] HospitalMoVoxxPending sale to [facility] [id number] Vitamin D, 25-Hydroxy 18.5 ng/mL (Abnormal) Range: 30.0-100.0 Comments: Vitamin D deficiency has been defined by the [place] ofMedicine and an Endocrine Society practice guideline as alevel of serum 25-OH vitamin D less than 20 ng/mL (1,2).The Endocrine Society went on to further define vitamin Dinsufficiency as a level between 21 and 29 ng/mL (2).1. IOM ([place] of Medicine). 2010. Dietary reference intakes for calcium and D. [place]: The National Academies Press.2. Sharon MF, Adarsh MAGANA, Lisa SANDERSON, et al. Evaluation, treatment, and prevention of vitamin D deficiency: an Endocrine Society clinical practice guideline. JCEM. 2010; 96(7):1911-30. 9-Nfs-459094:22 LIPID PANEL (26573) Comments: PATIENT WAS FASTINGPERFORMED BY: [facility] Fdpwku1376 [facility] [id number] LDL/HDL Ratio 3.5 {ratio_units} (Abnormal) Range: 0.0-3.2 [...] Cholesterol, Total 248 mg/dL (Abnormal) Range: 100-199 0-Acc-784320:22 TSH (03673) Comments: PATIENT WAS FASTINGPERFORMED BY: LabCoChrist HospitalEqkegx1229 [facility] [id number] TSH 2.760 {uIU/mL} (Normal) Range: 0.450-4.500 1-Vgf-570793:40 Basic Metabolic Profile (BMP) Comments: Serial Specimen #1, #2 or #3? 1'TROP' Serial specimen #1, #2, #3, or #4: 1[facility] [address] [place], [address] GAP 5 (Normal) Range: 5-15 CO2 31.0 [...] Range: 70-110 :40 CBC W/Diff, Automated Comments: [facility] [address] [place], [address] Absolute Lymph 2.66 {X10_3/ul} (Normal) [...] Serial specimen #1, #2, #3, or #4: 1[facility] [address]qhvmk[address] [place], [address] CKRI 0.7 % (Normal) Range: 0.0-1.4 Comments: RELATIVE INDEX >1.5% IS PRESUMPTIVELY POSITIVE CPKMB 0.8 ng/mL (Normal) Range: 0.0-5.0 Comments: CK-MB and RI Interpretation MB Relative Index Non-AMI <or= 5 NA Indeterminate > 5 <or= 4 AMI > 5 > 4 CPK TOTAL 120 U/L (Normal) Range: 26-192 :40 D-Dimer Quantitative (DVT/PE) Comments: [facility] [address] [facility] [place], [address] D-DIMER QUANT 0.27 {FEU/ug/m} (Normal) Range: 0.27-0.49 Comments: NORMAL D-Dimer level (<0.50) indicates no DVT or PE. :40 Troponin-I Comments: Serial Specimen #1, #2 or #3? 1'TROP' Serial specimen #1, #2, #3, or #4: 1[facility] [address]ugtqg4160 [facility] [place], [address] TROPONIN-I < 0.02 ng/mL (Normal) Comments: TROPONIN-I EXPECTED VALUES <0.05 NEGATIVE 0.06 - 0.59 AT RISK OF VA > OR = 0.60 SUGGEST VA 31-Qqz-912405:21 METABOLIC PANEL, COMPREHENSIVE Comments: PATIENT NOT FASTINGPERFORMED BY: [facility] Ioebhc8829 [facility] [id number] (31275) ALT (SGPT) 22 [iU]/L (Normal) Range: 0-32 [...] Glucose, Serum 92 mg/dL (Normal) Range: 65-99 59-Hxj-106083:21 CBC W/AUTO DIFF WBC Comments: PATIENT NOT FASTINGPERFORMED BY: LabCoChrist HospitalUntfwo0964 [facility] [id number] Information: [id number] (42922) Immature Grans (Abs) 0.0 {x10E3/uL} (Normal) Range: [...] 3.77-5.28 WBC 7.3 {x10E3/uL} (Normal) Range: 3.4-10.8 56-Kzw-980200:21 TSH (70828) Comments: PATIENT NOT FASTINGPERFORMED BY: [employer] [facility] [id number] RoadDublin [place] [id number] TSH 3.390 {uIU/mL} (Normal) Range: 0.450-4.500 38-Vkp-199128:21 CALCIFIDIOL (17562) VIT D 25 Comments: PATIENT NOT FASTINGPERFORMED BY: [employer] [facility] [id number] RoadDublin [place] [id number] Vitamin D, 25-Hydroxy 18.9 ng/mL (Abnormal) Range: 30.0-100.0 Comments: Vitamin D deficiency has been defined by the [place] of[place] and an Endocrine Society practice guideline as alevel of serum 25-OH vitamin D less than 20 ng/mL (1,2).The Endocrine Society went on to further define vitamin Dinsufficiency as a level between 21 and 29 ng/mL (2).1. IOM ([place] of [employer]). 2010. Dietary reference intakes for calcium and D. [place]: The National Academies Press.2. Sharon MF, Adarsh NC, Lisa SANDERSON, et al. Evaluation, treatment, and prevention of vitamin D deficiency: an Endocrine Society clinical practice guideline. JCEM. 2010; 96(7):1911-30. 81-Fsu-659952:21 LIPID PANEL (84650) Comments: PATIENT NOT FASTINGPERFORMED BY: CB [facility] Ovlmfe8[address] [facility] HospitalD[facility] [place] [id number]; [address]. [address] LDL/HDL Ratio 3.6 {ratio_units} (Abnormal) [...] Cholesterol, Total 250 mg/dL (Abnormal) Range: 100-199 5-Pxj-913604:08 Lyme, Western Blot, Comments: PATIENT NOT FASTINGPERFORMED BY: CB [facility] Zteeqs5922 [facility] [id number] BY: BN [facility] Vrduykohiw8082 [facility] [id number] Serum Lyme IgM WB Interp. Negative (Normal) [...] positivity are those recommended by CDC/ASTPHLD.p23=Osp C, o50=awiqgvmfz .Note:Sera from individuals with the following may cross react in theLyme Western Blot assays: other spirochetal diseases (periodontaldisease, leptospirosis, relapsing fever, yaws, and pinta);connective autoimmune (Rheumatoid Arthritis and Systemic Lupu sErythematosus and also individuals with Antinuclear Antibody);other infections (Sarita Spotted Fever; Shakeel-Solis Virus,and Cytomegalovirus). . IgM [...] Absent (Normal) IgG P93 Ab. Absent (Normal) 0-Xpn-051420:08 Lyme Disease Antibody W/ Comments: PATIENT NOT FASTINGPERFORMED BY: [facility] Carrier ServicesAmy Ville 3752370 [facility] [id number] BY: [place] [id number] Reflex (60979) Lyme IgG/IgM Ab <0.91 {ISR} (Normal) Range: 0.00-0.90 Comments: Negative <0.91 Equivocal 0.91 - 1.09 Positive >1.09 Please note reference interval change 7-Yio-829087:08 C-REACTIVE PROTEIN (22672) Comments: PATIENT NOT FASTINGPERFORMED BY: [employer] [id number] BY: [address] [id number] C-Reactive Protein, Quant 5.0 mg/L (Abnormal) Range: 0.0-4.9 2-Hdb-425271:08 Sed Rate Erythrocyte Comments: PATIENT NOT FASTINGPERFORMED BY: [employer] [id number] BY: [place] [id number] (27292) Sedimentation Rate-Westergren 8 mm/h (Normal) Range: 0-32 4-Ntp-702096:08 Metabolic Panel, Comments: PATIENT NOT FASTINGPERFORMED BY: [employer] [id number] BY: [place] [id number] Comprehensive (83521) ALT (SGPT) 22 [iU]/L (Normal) Range: 0-32 [...] Glucose, Serum 89 mg/dL (Normal) Range: 65-99 2-Aws-737600:08 CBC with auto diff Comments: PATIENT NOT FASTINGPERFORMED BY: CB [facility] Qnxzhu5575 [facility] [id number] BY: BN [facility] Txxqobyghu2772 [facility] [id number] Inf ormation: [id number] (90941) Immature Grans (Abs) 0.0 {x10E3/uL} (Normal) Range: [...] 3.77-5.28 WBC 8.0 {x10E3/uL} (Normal) Range: 3.4-10.8 4-Aqn-011573:40 Rapid Flu (65212 x 2) Influenza A Ag neg (Normal) 11-Tfh-027562:27 Urinalysis, Office (38167) UA - LEUKOCYTE ESTERASE Negative (Normal) UA - NITRITE Negative (Normal) URINE UROBILINGN JASON TIMED Normal mg/dL (Normal) UA - PROTEIN Negative mg/dL (Normal) UA - PH 6.5 (Normal) UA - BLOOD Negative (Normal) UA - SPECIFIC GRAVITY 1.010 (Normal) UA - KETONES Negative mg/dL (Normal) UA - BILIRUBIN Negative (Normal) UA - GLUCOSE Negative (Normal) 68-Jbk-066453:22 Urine Test, Office (72042) Urine Test, Office Negative (Normal) 08-Dqe-053455:08 CALCIFIDIOL (18931) VIT D 25 Comments: PATIENT NOT FASTINGPERFORMED BY: [facility] Dkekkv4012 [facility] [id number] Vitamin D, 25-Hydroxy 17.5 ng/mL (Abnormal) Range: 30.0-100.0 Comments: Vitamin D deficiency has been defined by the [place] [employer] and an Endocrine Society practice guideline as alevel of serum 25-OH vitamin D less than 20 ng/mL (1,2).The Endocrine Society went on to further define vitamin Dinsufficiency as a level between 21 and 29 ng/mL (2).1. IOM ([place] [employer]). 2010. Dietary reference intakes for calcium and D. [place]: The National Academies Press.2. Sharon MF, Adarsh MAGANA, Lisa SANDERSON, et al. Evaluation, treatment, and prevention of vitamin D deficiency: an Endocrine Society clinical practice guideline. JCEM. 2010; 96(7):1911-30. 72-Fon-181146:08 Folate (79440) Comments: PATIENT NOT FASTINGPERFORMED BY: CB [facility] Yhmzsb3323 Diaz RoadDublin [place] [id number] Folate (Folic Acid), Serum 12.5 ng/mL (Normal) Comments: A serum folate concentration of less than 3.1 ng/mL isconsidered to represent clinical deficiency. 96-Eyi-088314:08 VITAMIN B-12 (CYANOCOBALAMIN) Comments: PATIENT NOT FASTINGPERFORMED BY: CB [facility] Rsizdy3633 Diaz RoadDublin [place] [id number] (89579) Vitamin B12 353 pg/mL (Normal) Range: 211-946 :08 TSH (26126) Comments: PATIENT NOT FASTINGPERFORMED BY: CB [facility] Mfupwo1265 Diaz RoadDublin [place] [id number] TSH 4.350 {uIU/mL} (Normal) Range: 0.450-4.500 42-Qhe-697221:08 SED RATE ERYTHROCYTE (38885) Comments: PATIENT NOT FASTINGPERFORMED BY: CB [facility] Oxqjwe4283 Diaz RoadDublin [place] [id number] Sedimentation Rate-Westergren 2 mm/h (Normal) Range: 0-32 81-Azo-688079:08 RHEUMATOID FACTOR-QUANT (55018) Comments: PATIENT NOT FASTINGPERFORMED BY: CB [facility] Osfhmr0458 Diaz RoadDublin [place] [id number] RA Latex Turbid. 6.7 {IU/mL} (Normal) Range: 0.0-13.9 28-Mie-155488:08 METABOLIC PANEL, Comments: PATIENT NOT FASTINGPERFORMED BY: [employer] Gfqfaz0126 [facility] [id number] Information: [id number] COMPREHENSIVE (07142) ALT (SGPT) 21 [iU]/L (Normal) Range: 0-32 [...] Glucose, Serum 88 mg/dL (Normal) Range: 65-99 56-Kfl-173947:08 C-REACTIVE PROTEIN (24335) Comments: PATIENT NOT FASTINGPERFORMED BY: [facility]trackCoChrist HospitalZrodkj7478 [facility] [id number] C-Reactive Protein, Quant 6.1 mg/L (Abnormal) Range: 0.0-4.9 88-Sdy-661623:08 CBC (AUTO) (67872) Comments: PATIENT NOT FASTINGPERFORMED BY: [facility]6370 [facility] [id number] Platelets 487 {x10E3/uL} (Abnormal) Range: 150-379 RDW 13.8 % (Normal) Range: 12.3-15.4 MCHC 34.1 g/dL (Normal) Range: 31.5-35.7 MCH 30.8 pg (Normal) Range: 26.6-33.0 MCV 91 fL (Normal) Range: 79-97 Hematocrit 40.8 % (Normal) Range: 34.0-46.6 Hemoglobin 13.9 g/dL (Normal) Range: 11.1-15.9 RBC 4.51 {x10E6/uL} (Normal) Range: 3.77-5.28 WBC 7.4 {x10E3/uL} (Normal) Range: 3.4-10.8 82-Nnk-395775:08 RIKA (ANTINUCLEAR ANTIBODY) Comments: PATIENT NOT FASTINGPERFORMED BY: [facility] Carrier ServicesChrist HospitalNwgfnd9370 [facility] [id number] (59561) RIKA Direct Negative (Normal) 57-Shb-333561:01 METABOLIC PANEL, Comments: PATIENT WAS FASTINGPERFORMED BY: [facility]6370 [facility] [id number] Information: [id number] COMPREHENSIVE (68997) ALT (SGPT) 21 [iU]/L (Normal) Range: 0-32 [...] mg/dL (Normal) Range: 65-99 : LIPID PANEL (26960) Comments: PATIENT WAS FASTINGPERFORMED BY: [facility] Car[facility] ServicesChrist HospitalHnufzb9828 [facility] [id number] LDL/HDL Ratio 3.1 {ratio_units} (Normal) Range: 0.0-3.2 LDL Cholesterol Calc 146 mg/dL (Abnormal) Range: 0-99 VLDL Cholesterol Josr 28 mg/dL (Normal) Range: 5-40 HDL Cholesterol 47 mg/dL (Normal) Comments: According to ATP-III Guidelines, HDL-C >59 mg/dL is considered anegative risk factor for CHD. Triglycerides 142 mg/dL (Normal) Range: 0-149 Cholesterol, Total 221 mg/dL (Abnormal) Range: 100-199 : TSH (42059) Comments: PATIENT WAS FASTINGPERFORMED BY: [facility] Car[facility] ServicesChrist HospitalKxetrg3172 [facility] [id number] TSH 2.590 {uIU/mL} (Normal) Range: 0.450-4.500 80-Nsk-161566:01 TSH (THYROID STIMULATING Comments: PATIENT WAS FASTINGPERFORMED BY: [facility] [place] [address] [id number] HORMONE) (16069) TSH 4.510 {uIU/mL} (Abnormal) Range: 0.450-4.500 97-Los-964681:01 LIPID PANEL (36509) Comments: PATIENT WAS FASTINGPERFORMED BY: [facility]Prom[facility]6370 [facility] [id number] Information: ADD [id number] AND DRAW FEE 99 6660 LDL/HDL Ratio 3.1 {ratio_units} (Normal) Range: 0.0-3.2 LDL Cholesterol Calc 138 mg/dL (Abnormal) Range: 0-99 HDL Cholesterol 44 mg/dL (Normal) Comments: According to ATP-III Guidelines, HDL-C >59 mg/dL is considered anegative risk factor for CHD. VLDL Cholesterol Josr 28 mg/dL (Normal) Range: 5-40 Triglycerides 139 mg/dL (Normal) Range: 0-149 Cholesterol, Total 210 mg/dL (Abnormal) Range: 100-199 39-Lgo-295209:01 CALCIFEDIOL (12861) Comments: PATIENT WAS FASTINGPERFORMED BY: [facility] Ghmbsh0149 [facility] [id number] Vitamin D, 25-Hydroxy 31.8 ng/mL (Normal) Range: 30.0-100.0 Comments: Vitamin D deficiency has been defined by the [place] of[place] and an Endocrine Society practice guideline as alevel of serum 25-OH vitamin D less than 20 ng/mL (1,2).The Endocrine Society went on to further define vitamin Dinsufficiency as a level between 21 and 29 ng/mL (2).1. IOM ([place] of [place]). 2010. Dietary reference intakes for [...] Positive: >20 - 80 High Positive: >80 1-Ptv-493689:16 AT3F tAT3AI 104 % (Normal) Range: 75-130 AT3 97 % (Normal) Range: 75-135 9-Rrt-234391:16 BETA2G cGTUP0Z$ <9 (Normal) Range: 0-20 Comments: INFCE Result Units: GPI IgA units eLQEW6I$ <9 (Normal) Range: 0-20 Comments: INFCE Result Units: GPI IgG units iDIMG4O$ <9 (Normal) Range: 0-20 Comments: INFCE Result Units: GPI IgM units 3-Iqd-910134:16 FACIID tFACIID Comment (Normal) Comments: NEGATIVENo mutation identified. .Comment:A point mutation ([id number]) in the factor II (prothrombin)gene is the [...] individual mutations. This assaydetects only the prothrombin [id number] mu tation and doesnot measure genetic abnormalities elsewhere in thegenome. Other thrombotic risk factors may be pursuedthrough systematic clinical laboratory analysis. Thesefactors include the R506Q (Leid en) mutation in the Factor Vgene, plasma homocysteine levels, as well as testing fordeficiencies of antithrombin III, protein C and protein S. 8-Fzp-825052:16 FACVL tFACVL Comment (Normal) Comments: Result: Negative [...] in the workup for venous thrombosis include [id number] mutation in the factor II (prothrombin) gene,protein S and C deficiency, and antithromb in deficiencies.Anticardiolipin antibody and lupus anticoagulant analysismay be appropriate for certain patients, as well ashomocysteine levels. .Contact your local [facility] for information on how to orderadditional testing if desired. .Genetic counselors are available for health care* providers to discuss results at [phone] ([phone]). .Methodology:DNA analysis of the Factor V gene [...] Ph.D.Ashley Deluna M.D .Sheron Leroy, Ph.D. . 3-Rko-744444:16 HOMO 8.0 umol/L (Normal) Range: 3.2-10.7 :16 [...] 4.2-5.4 WBC 6.0 K/mm3 (Normal) Range: 4.4-11.0 9-Olw-908864:33 COMP METABOLIC GAP 10 (Normal) Range: 5-15 [...] {uIU/mL} (Normal) Range: 0.358-3.74 :33 VIT D,25 40641 28.7 ng/mL (Abnormal) Range: 30.0-100.0 Comments: Vitamin D deficiency has been defined by the [place] [facility] and an Endocrine Society practice guideline as alevel of serum 25-OH vitamin D less than 20 ng/mL (1,2).The Endocrine Society went on to further define vitamin Dinsufficiency as a level between 21 and 29 ng/mL (2).1. IOM ([place] [employer] [place]). 2011. Dietary reference intakes for calcium and D. [place]: The National Academies Press.2. Sharon MF, Adarsh NC, Lisa SANDERSON, et al. Evaluation, treatment, and prevention of vitamin D deficiency: an Endocrine Society clinical practice guideline. JCEM. 2010; 96(7): 1911-30.Performed at: [address] [id number] Director: Nuzhat Worrell MD, Phone: [phone] 9-Irw-374957:30 CHEST WITH CONTRAST Radiology Report See Note [...] radiologist regarding this report, please call our [id number] line @ Dictated on 04/04/11 1546 by Mel Tan MDranscribed on 04/04/11 1638 by ITS IMPORTSign by Emre Tan MD on 04/04/11 1639 Sign by: Emre Tan MD 72-Gns-871798:49 PRO TIME INR 1.8 (Normal) PROTIME 20.2 s (Abnormal) Range: 11.9-14.4 60-Hlr-187493:18 Prothrombin Time (PT) Comments: PERFORMED BY: [facility] Oerlfk7796 [facility] [id number] Prothrombin Time 25.5 {sec} (Abnormal) Range: 9.1-12.0 [...] be affected. Range: 0.358-3.74 :44 VIT D,25 45777 16.7 ng/mL (Abnormal) Range: 32.0-100.0 Comments: Effective January 22, 2011 Vitamin D, 25-Hydroxy reference intervals will be changing to 30-100. .Recent studies consider the lower li jay of 32.0 ng/mL to be athreshold for optimal health.Luis HERNADEZ. J Nutr. 2004;135(2):317-22.Performed at: [place] [address] [place], [place] [id number] Director: Nuzhat Worrell MD, Phone: [phone] TSH 1.72 {uIU/mL} (Normal) Range: 0.358-3.74 16-Cuj-996433:21 BRAIN/HEAD WITHOUT CONTRAST Radiology Report See Note [...] 05/22/10 1650 Sign by: PITA CONTRERAS MD 13-Cun-674445:19 SINUS/FACIAL BONE Radiology Report See Note (Normal) [...] Comments: GLU,2HPPG 75gm GLUC PPG GLUP from 0714:U28695J. :23 COMPLETE UA BACTERIA 0 SEEN {/hpf} [...] CHOL 208 mg/dL (Abnormal) Comments: <200 mg/dL Pgwrikply756-740 mg/dL Borderline>240 mg/dL High Risk :23 TSH 2.35 {uIU/mL} (Normal) Range: 0.358-3.74 80-Xkc-525327:19 CULTURE, URINE URINE CULTURE See Note {CFU/mL} (Normal) Comments: COLONY COUNT 25,000-50,000 ORGANISM 1: MIXED GRAM POSITIVE ORGANISMS 97-Pmf-725821:07 Rapid Flu (85143 x 2) INFLUENZA IMMUNOASSY DIRECT OPTICAL OBSERV neg (Normal) 52-Fks-351033:07 Rapid Strep Test, Office (28999) Rapid Strep Test, Office Negative (Normal) 66-Vph-705648:46 CULTURE, URINE URINE CULTURE See Note (Normal) Comments: Predominant being a gram positive skip, possibleLactobacillus species. COLONY COUNT 80,000- 100,000 ORGANISM 1: MIXED GRAM POSITIVE ORGANISMS 28-Iss-580574:13 Urinalysis, Office (83792) UA - BILIRUBIN Negative (Normal) UA - [...] :17 TSH 1.78 {uIU/mL} (Normal) Range: 0.358-3.74 18-Mij-620084:59 ABDOMEN WITH CONTRAST Radiology Report See Note (Normal) Comments: Exam Number: [id number] CT OF THE ABDOMEN AND PELVIS WITH [...] and splenectomy. Reported By: PITA ALBERTS M.D. 54-Syp-248043:59 PELVIS WITH CONTRAST Radiology Report See Note (Normal) Comments: Exam Number: [id number] CT OF THE ABDOMEN AND PELVIS WITH [...] and splenectomy. Reported By: PITA ALBERTS M.D. 73-Ylh-88270:36 Upper Respiratory Culture Comments: Clinical Information: SRC:JACE YANES [id number] PERFORMED BY: Flud6370 [facility] [id number] Result 1 RRF (Normal) Comments: Routine respiratory ed Upper Respiratory Culture Final report (Normal) 22-Jan-2007 Antistreptolysin O Ab 37.7 {IU/mL} Comments: PATIENT NOT FASTINGPERFORMED BY: Flud6370 [facility] [id number] 9:26 (Normal) Range: 0.0-200.0 85-Whm-82726:26 Comp. Metabolic Panel (14) Comments: PATIENT NOT FASTINGPERFORMED BY: Flud6370 [facility] [id number] A/G Ratio 1.2 (Normal) Range: 1.1-2.5 Albumin, [...] (ANTINUCLEAR ANTIBODY) Comments: PATIENT NOT FASTINGPERFORMED BY: [facility]6370 [facility] [id number] (56914) Antinuclear Antibodies Direct 55 AU/mL (Normal) Range: 0-99 Comments: Negative <100 Equivocal 100 - 120 Positive >120 :26 Sed Rate Erythrocyte (99521) Comments: PATIENT NOT FASTINGPERFORMED BY: NeurotrackDouglas [place] 4051570 [facility] [id number] Sedimentation Rate-Westergren 6 mm/h (Normal) Range: 0-20 :26 CBC, Platelets & Auto Diff Comments: PATIENT NOT FASTINGPERFORMED BY: [facility] Carrier ServicesAmy [place] 3752370 [facility] [id number] (69665) Baso (Absolute) 0.1 {x10E3/uL} (Normal) Range: 0.0-0.2 [...] Ischemic stroke of frontal lobe : Reviewed [employer] Letter Indication: Ischemic stroke of frontal lobe [...] Indication: Sleep apnea Cough, persistent : Reviewed [employer] Letter- dr overton /alexander [place]-no evid of gerd /cebul hh/ slight gerd Indication: Cough, persistent Polyp of colon, adenomatous : Reviewed [employer] Letter- Tessie- rescope in 3yrs Indication: Polyp [...] other allergen MYOCARDIAL INFARCTION, NOS : Reviewed [employer] Letter Indication: MYOCARDIAL INFARCTION, NOS MYOCARDIAL INFARCTION, [...] Indication: Acute sinusitis, unspecified Planned Observations TSH (99126)Indication: Hypothyroidism, unspecified On: :02 Request METABOLIC PANEL, COMPREHENSIVE (38142)Indication: Abnormal glucose tolerance test (Renamed from Abnormal glucose tolerance test (GTT)) On: :02 Request CBC W/AUTO DIFF WBC (07243)Indication: Abnormal glucose tolerance test (Renamed from Abnormal glucose tolerance test (GTT)) On: :02 Request LIPOPROTEIN, BLD, BY NMR (91720)Indication: Hypercholesteremia On: :01 Request CALCIFIDIOL (62996) VIT D 25Indication: Vitamin D deficiency, unspecified On: :01 Request Rapid Flu (30300 x 2)Indication: Fever and chills On: 87-Ekx-117349:22 Request EB ANTIBODY NUCLR ANTIGN (13801)Indication: Lymphadenopathy, cervical On: 00-Rxv-067099:29 Request D-Dimer (97484)Indication: History of DVT (deep vein thrombosis) On: 32-Mny-112214:06 Request METABOLIC PANEL, COMPREHENSIVE (95367)Indication: Hypercholesteremia On: :42 Request CBC W/AUTO DIFF WBC (90296)Indication: Hypercholesteremia On: :42 Request LIPID PANEL (32450)Indication: Hypercholesteremia On: :42 Request TSH (55007)Indication: Hypothyroidism, unspecified On: 03-Lbs-67658:42 Request CALCIFIDIOL (60128) VIT D 25Indication: Vitamin D deficiency, unspecified On: 28-Xzi-35374:41 Request LIPID PANEL (51231)Indication: Hypercholesteremia On: 02-Dec-20149:35 Request Comments: do in 4months TSH (79874)Indication: Hypothyroidism, unspecified On: :30 Request Anti-TPO Antibody (64611)Indication: Hypothyroidism, unspecified On: :25 Request T4, FREE (THYROXINE) (34830)Indication: Hypothyroidism, unspecified On: :25 Request T3, FREE (TRIDOTHYRONINE) (94262)Indication: Hypothyroidism, unspecified On: 14-Jul-2012 Request TSH (79387)Indication: Hypothyroidism, unspecified On: 14-Jul-2012 Request D-Dimer (08427)Indication: SOB On: 06-Fwm-825460:25 Request Antiphospholipid atb (78930)Indication: Pulmonary embolism On: :12 Request Comments: IgM and igG, IgA anticardiolipin antibody i also need the Beta 2 glycoprotein anticardiolipin antibody -IgG, and IgM Protein S Profile (34045)Indication: Pulmonary embolism On: :05 Request Protein C Profile (79162)Indication: Pulmonary embolism On: : Request Homocysteine, Plasma (78427)Indication: Pulmonary embolism On: : Request ANTICOAG ANTTHROMB III & ASSAY (90154)Indication: Pulmonary embolism On: : Request ANTITHROMBIN III ACTIVTY (18548)Indication: Pulmonary embolism On: : Request CLOTTING FACTOR II (36031)Indication: Pulmonary embolism On: : Request Factor V Leiden (18062)Indication: Pulmonary embolism On: :05 Request PT (Prothrobim Time) (46242)Indication: Pulmonary embolism On: 54-Bku-712238:02 Request PT (Prothrobim Time) (18015)Indication: Pulmonary embolism On: 58-Qdu-37877:40 Request Comments: standing order TSH (58985)Indication: Anxiety On: :52 Request LIPID PANEL (86243)Indication: Hypercholesteremia On: :52 Request VITAMIN B-12 (CYANOCOBALAMIN) (18765)Indication: Vitamin B12 deficiency (non anemic) On: :51 Request CALCIFIDIOL (09034) VIT D 25Indication: Vitamin D deficiency, unspecified On: :48 Request PT (Prothrobim Time) (00879)Indication: Pulmonary embolism On: :48 Request KATHY CULTURE-OTHER (56837)Indication: Staphylococcal septicemia, unspecified On: :46 Request Comments: nares -both KATHY CULTURE-BLOOD (92299)Indication: Fever, unspecified On: :42 Request PT (Prothrobim Time) (71343)Indication: Pulmonary embolism On: :28 Request CULTURE, SPUTUM (62963)Indication: Wheezing On: :34 Request PT (Prothrobim Time) (87512)Indication: Pulmonary embolism On: 86-Hht-679838:29 Request PT (Prothrobim Time) (43006)Indication: Pulmonary embolism On: 61-Jtq-552163:57 Request Comments: inr CALCIFIDIOL (73741) VIT D 25Indication: Fatigue On: :32 Request Folate (98531)Indication: Fatigue On: :32 Request VITAMIN B-12 (CYANOCOBALAMIN) (02581)Indication: Fatigue On: :32 Request TSH (90727)Indication: Fatigue On: :32 Request SED RATE ERYTHROCYTE (57440)Indication: Fatigue On: :32 Request RHEUMATOID FACTOR-QUANT (33389)Indication: Fatigue On: :32 Request METABOLIC PANEL, COMPREHENSIVE (87560)Indication: Fatigue On: :32 Request C-REACTIVE PROTEIN (21857)Indication: Fatigue On: :32 Request CBC (AUTO) (64903)Indication: Fatigue On: :32 Request RIKA (ANTINUCLEAR ANTIBODY) (97947)Indication: Fatigue On: :32 Request LIPID PANEL (12880)Indication: Hypercholesteremia On: 24-Nov-2010 Request TSH (06745)Indication: Hypothyroidism, unspecified On: :33 Request KATHY CULTURE-OTHER (38041)Indication: Upper respiratory infection On: :32 Request Rapid Strep Test, Office (11631)Indication: Upper respiratory infection On: :32 Request LIPID PANEL (66278)Indication: Hypercholesteremia On: 8-Blf-118622:36 Request TSH (47871)Indication: Hypothyroidism, unspecified On: 4-Ano-153544:35 Request LIPID PANEL (25087)Indication: Hypercholesteremia On: 35-Hjs-554938:21 Request Comments: do in 4 months Glucose, PP/2 Hour (65431)Indication: Family history of diabetes mellitus On: 17-Twi-608633:18 Request URINALYSIS, W/ MICRO (86213)Indication: Other abnormal finding of urine On: :02 Request TSH (33424)Indication: Hypothyroidism, unspecified On: 30-Ljg-51112:55 Request LIPID PANEL (31539)Indication: Hypercholesteremia On: :55 Request URINE KATHY CULTURE-JASON COL COUNT (43949)Indication: Other abnormal finding of urine On: 56-Ndm-655042:21 Request Urinalysis, Office (84017)Indication: Other abnormal finding of urine On: 35-Vym-052003:20 Request URINE KATHY CULTURE-JASON COL COUNT (43784)Indication: Dysuria On: 58-Wtw-133316:35 Request LIPID PANEL (78365)Indication: Hypercholesteremia On: 70-Lss-082058:28 Request Comments: do in 6 months TSH (15233)Indication: Hypothyroidism, unspecified On: :51 Request LIPID PANEL (34032)Indication: Hypothyroidism, unspecified On: :51 Request LIPID PANEL (97254)Indication: Hyperglyceridemia On: 92-Ioz-801021:26 Request Comments: DO IN 4-6 MONTHS KATHY CULTURE-OTHER (50007)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) On: :24 Request SKIN TEST INTRADERMAL TB (59583)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) On: :19 Request Comments: given 0.1 in left forearm LOT#[id number] exp.07/10- Metabolic Panel, Comprehensive (00791)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) On: :19 Request ANTISTREPTOLYSIN O-SCREN (32397)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) On: :18 Request URINALYSIS (10084)Indication: Dysuria On: :51 Request Planned Encounters Medical; 4 Month FU - On: 07-Feb-2018 7:00 [facility] Sho Lozano DO, DO, Kathleen Planned Procedures Doppler Ultrasound OtherBy: Blake On: 02-Oct-2017 Intent Sho DAMON DO, Kathleen Comments: lower extremity CXR PA & LAT (06721)By: Blake DAMON, On: 02-Oct-2017 Intent Sho Carvajal DO Spirometry (26099)By: Blake DAMON, On: 02-Oct-2017 Intent Sho Carvajal DO Comments: normal with text book curves on restrictions ELECTROCARDIOGRAM, COMPLETE (ECG) On: 22-Mar-2017 Intent (92446)By: Sho Lozano DO Comments: nsr no acute chg Sho Lozano DO CT SCAN, ABDOMEN W/O CONTRAST On: 22-Mar-2017 Intent (81588)By: Sho Lozano DO, DO, Kathleen Wax CurettesBy: Sho Lozano DO On: 20-Nov-2016 Intent Sho Lozano DO Ear Irrigation ([id number])By: Blake On: 20-Nov-2016 Sho Orona DO, DO, Kathleen Comments: Ear Irrigation performed on:bilateralAmount/color removed cerumen: brown, moderate amountOUtcome:clear and tolerated Spirometry ([id number])By: Blake DAMON, On: 20-Nov-2016 Intent Sho Carvajal DO Comments: normal Solu- Medrol Injection, 125mg On: 20-Nov-2016 Intent ([id number])By: Sho Lozano DO Comments: lot [id number] mgright gmIMas, lead painter Sho Lozano DO Aerosol Treatment ([id number])By: Blake On: 20-Nov-2016 Sho Orona DO, DO, Kathleen Comments: no wheeze more ae CT SCAN OF NECK TISSUE WITH On: 16-Dec-2015 Intent CONTRAST ([id number])By: Sho Lozano DO, DO, Kathleen CT - Chest (IV Contrast Needed)By: On: 27-Sep-2015 Intent Elida Horton CNP Comments: STAT Venous Doppler - RightBy: Clifford On: 27-Sep-2015 Intent Elida DIAS Spirometry ([id number])By: Blake DAMON, On: 12-Apr-2015 Intent Sho Carvajal DO Comments: looks good HOME SLEEP STUDY TEST (HST) WITH On: 12-Apr-2015 Intent TYPE II PORTABLE MONITOR, UNATTENDED; MINIMUM OF 7 CHANNELS: EEG, EOG, EMG, ECG/HEART RATE, AIRFLOW, RESPIRATORY EFFORT AND OXYGEN SATURATION ([id number])By: Sho Lozano DO, DO, Kathleen ATTENDED SLEEP STUDY ([id number])By: On: 02-Dec-2014 Intent Sho Lozano DO, DO, Kathleen Aerosol Treatment ([id number])By: Blake On: 16-Nov-2014 Sho Orona DO, DO, Kathleen Comments: clear afdter treatmenet Doppler Ultrasound OtherBy: Blake On: 16-Nov-2014 Sho Orona DO, DO, Kathleen BILATERAL MAMMOGRAMS ([id number])By: On: 30-Jun-2014 Intent Sho Lozano DO, DO, Kathleen Aerosol Treatment ([id number])By: Blake On: 12-Mar-2014 Sho Orona DO, DO, Kathleen Comments: more a/e no wheeze ELECTROCARDIOGRAM, COMPLETE (ECG) On: 18-Dec-2013 Intent ([id number])By: Elida Horton CNP MAMMOGRAM, SCREENING, BOTH BREASTS On: 13-May-2013 Intent ([id number])By: Sho Lozano DO, DO, Kathleen Eprescribed prescriptions On: 30-May-2012 Intent ([id number])By: Sho Lozano DO, DO, Kathleen Eprescribed prescriptions On: 14-May-2012 Intent ([id number])By: Carmelina Newman LPN Spirometry ([id number])By: Blake DAMON, On: 18-Jan-2012 Intent Sho Carvajal DO Comments: not bad-- some technique bad related results EKG ([id number])By: Sho Lozano DO On: 18-Jan-2012 Intent Sho Lozano DO Comments: nsr no acute chg Aerosol Treatment ([id number])By: Clifford On: 03-Dec-2011 Elida Orona CNP Solu -Medrol Injection, 125 mg On: 12-Nov-2011 Intent ([id number])By: Elida Horton CNP Comments: Lot #[id number]-r hip, IMDose- prefilled syringegiven by:MARIAN Almazan signed Eprescribed prescriptions On: 12-Nov-2011 Intent ([id number])By: Roxie Vázquez LPN Pulse Oximetry ([id number])By: Blake On: 04-Apr-2011 Sho Orona DO, DO, Kathleen Comments: 95% CT - Chest: pe protocolBy: Blake On: 04-Apr-2011 Sho Orona DO, DO, Kathleen EKG ([id number])By: Sho Lozano DO On: 04-Apr-2011 Intent Sho Lozano DO Comments: NSR -- SMALL CONDUCTION DELAY IN INFERIOR LEADS -- WILL COMPARE- SEEMS TO BE NEW VS LEAd placemnt CT - Sinuses CompleteBy: Blake DAMON, On: 07-Feb-2011 Intent Sho Carvajal DO Radiology - Chest- PA and LatBy: On: 02-Feb-2011 Intent Sho Lozano DO, DO, Kathleen Pulse Oximetry ([id number])By: Blake On: 02-Feb-2011 Intent DOSho DO, Kathleen Aerosol Treatment ([id number])By: Blake On: 02-Feb-2011 Intent DOSho DOSho Pulse Oximetry ([id number])By: Clifford On: 29-Jan-2011 Intent ARUN Jamee Aerosol Treatment ([id number])By: Clifford On: 29-Jan-2011 Intent ARUN Jamee Eprescribed prescriptions On: 29-Jan-2011 Intent ([id number])By: Elida Horton CNP MYOCARDIAL INFARCTION EDUCATIONBy: On: 11-Jan-2011 Intent Sho Lozano DO, DO, Kathleen FLU VAC, SPLIT, >3 YEARS, INTRAMUSC On: 05-Jan-2011 Intent ([id number])By: Sho Lozano DO Comments: Lot #[id number]/30/12Site-left deltoidgiven by: OSCAR Kaur DO, Kathleen B 12 Injection, 1000 mcg ([id number])By: On: 05-Jan-2011 Intent Sho Lozano DO, DO, Comments: Lot #[id number]/14Site-right deltoidDose- 1 mlgiven by: OSCAR Kaur IMMUNIZ ADMNIN, 1 VAC, SNGL/COMBO On: 05-Jan-2011 Intent ([id number])By: Sho Lozano DO, DO, Kathleen Eprescribed prescriptions On: 05-Oct-2010 Intent ([id number])By: Sho Lozano DO, DO, Kathleen Solu -Medrol Injection, 125 mg On: 10-Jul-2010 Intent ([id number])By: Elida Horton CNP EKG ([id number])By: Sho Lozano DO On: 15-Jun-2010 Intent Sho [...] Intent ([id number])By: Jazmin Sierra DO Comments: Lot #[id number]/1/12Site-left hipDose- 125 mggiven by:[facility] Solu- Medrol Injection, 125mg On: 01-Nov-2009 Intent ([id number])By: Sho Lozano DO, DO, Kathleen IMMUNIZ ADMNIN, 1 VAC, SNGL/COMBO On: 29-Jul-2009 Intent ([id number])By: Sho Lozano DO, DO, Kathleen EKG ([id number])By: Sho Lozano DO On: 29-Jul-2009 Intent Sho Lozano DO Comments: nsr no acute chgs PNEUM VAC ADLT/IMUMNOSPR, SBC/INTRM On: 29-Jul-2009 Intent ([id number])By: Sho Lozano DO Comments: Lot:[id number]:07Lxr42Jizn:0.5Route:IMSite:Left Deltoid Given by: ALY Das DO, Kathleen TDAP VACCINE >7 IM ([id number])By: On: 10-Dec-2008 Intent Sho Lozano DO, DO, Comments: Lot #[id number]-xcby deltoidgiven by:NORIS Berkowitz Solu -Medrol Injection, 125 mg On: 09-Aug-2008 Intent ([id number])By: Jazmin Sierra DO Comments: lot # [id number]- [id number]-MVnlnu- 2ML tolerated well Ashleigh LU CT - Abdomen & Pelvis (IV Contrast On: 29-Oct-2007 Intent Needed)By: Sho Lozano DO, DO, Kathleen SPECIMEN HNDLNG/TRNSPRT, OFFC > LAB On: 22-Jan-2007 Intent ([id number])By: Elida Horton CNP Rocephon Injection, 2 Gm On: 22-Jan-2007 Intent ([id number])By: Rebekah Tian LPN Comments: given by Dr. Lozano lot [id number] exp 05-10, IV flushed with 0.5cc before and after iv med with 0.9% sodium chloride. IV Infusion ([id number])By: Asmita, On: 22-Jan-2007 Intent Rebekah MOORE IV Infusion ([id number])By: Asmita, On: 21-Jan-2007 Intent Rebekah MOORE Comments: 2g given trough IV by Constance Fields lot [id number] exp 05-10 iv flushed with 0.9% sodum chloride 0.5cc before and after. Venous Doppler - RightBy: Clifford On: 20-Jan-2007 Intent Elida DIAS Comments: Rt lower ext doppler am SOLOMON INFUSION, NORMAL SALINE SOLUTION , On: 20-Jan-2007 Intent 250 CC ([id number])By: Elida Horton CNP THER/PROPH/DIAG IV INF, INIT On: 20-Jan-2007 Intent ([id number])By: Elida Horton CNP Comments: #22 gauge needle placed to right forearm per erussell without difficulty Rocephin Injection, 2 Gram On: 20-Jan-2007 Intent ([id number])By: Elida Horton CNP Comments: Lot # [id number] exp 05-10 per erussell Toradol Injection, 30 mg On: 13-Dec-2006 Intent (J1885)By: Sho Lozano DO Comments: given in left hip, 1cc, lot#[id number], exp.01.09, [place] Sho Lozano DO Planned Medications [...]
--- OUTSIDE RECORDS SUMMARY | 2018-05-28 06:43 | XMS RPT_ITS | Continuity of Care Document ---
:1970 Author Organization [facility] Address [address] [facility] [address] [place] [address] Phone Care Team Providers Name Role Phone Sho Lozano DO Unavailable Brooklynn RODRIGUES, Dr. Jacinto Corrales Unavailable MD Chandler, Stan Unavailable Raymundo Ordonez MD Unavailable Christian LopezShabnamSharri Lomax Unavailable Unavailable Elías, Fatmata Unavailable Unavailable TOMY TinaN Rebekah Unavailable Unavailable Vivi Goodwin Unavailable Unavailable Long MOTORCYCLE FABRICATORCarmelina Unavailable Unavailable Unavailable Unavailable Problems Name Dates [...] Active ARTHROPLASTY, NOS Comments: Lt, first metatarsophalangeal /, rt. 12 Dr. 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 ETD (Eustachian tube dysfunction), bilateral (H69.83, 381.81) Comments: told to do otc lfonae Status: Active Family history of diabetes mellitus [...] Ischemic stroke of frontal lobe (I63.9, 434.91) Status: Active Migraine, unspecified, not intractable, without [...] Active Pregnancies () Comments: 0 Status: Active Rosacea (L71.9, 695.3) Status: Active Screening for malignant neoplasm of breast (Z12.39, V76.10) Status: Active Severe obesity (BMI >= 40) (E66.01, 278.01) Status: Active Skin lesion (L98.9, 709.9) Status: [...] 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 Type II diabetes mellitus, well controlled (E11.9, 250.00) Status: Active Unspecified asthma with (acute) exacerbation [...] days Quantity: 30 {Tablet} Refills: 0 Ordered:06-Aug-2016 Trent MOORECarmelina Start : 12-Apr-2015 Active CLARITIN-D 24 HOUR, 10-240MG (Oral Tablet Extended Release 24 Hour) 1 Tablet ER 24HR qd for 30 days Quantity: 30 {Tablet} Refills: 0 Ordered:12-Apr-2015 Adelfo Lozano DO, DO, Kathleen Start : 12-Apr-2015 Active Losartan Potassium-HCTZ 100-25 MG Oral Tablet 1 (one) Tablet daily for 30 days Quantity: 30 {Tablet} Refills: 4 Ordered:14-Feb-2018 Adelfo Lozano DO, DO, Kathleen Start : 14-Feb-2018 Active Montelukast Sodium 10 MG Oral Tablet 1 qd (10 MG) Active MULTIVITAMIN (PO Tab) 1 Daily for 0 days Refills: 0 Ordered:29-Jul-2009 Mast RN, MandyActive NASONEX, 50MCG/ACT (Nasal Suspension) 1 spray Daily PRN for 0 days Refills: 0 Ordered:12-Apr-2015 Adelfo Lozano DO, DO, Kathleen Start : 12-Apr-2015 Active Plavix 75 MG Oral Tablet 1 (one) Tablet daily for 0 days Quantity: 30 {Tablet} Refills: 3 Ordered:14-Feb-2018 Adelfo Lozano DO, DO, Kathleen Start : 14-Feb-2018 Active PROAIR HFA, 108 (90 Base)MCG/ACT (Inhalation Aerosol Solution) 2 (two) Puff(s) tid prn for 0 days Quantity: 1 {Box} Refills: 4 Ordered:01-Jul-2015 Adelfo Lozano DO, DO, Kathleen Start : 01-Jul-2015 Active PROzac 10 MG Oral Capsule 1 (one) Capsule qd for 0 days Quantity: 30 {Capsule} Refills: 3 Ordered:14-Feb-2018 Adelfo Lozano DO, DO, Kathleen Start : 14-Feb-2018 Active SYMBICORT, 160-4.5MCG/ACT (Inhalation Aerosol) 1 (one) puff puff bid for 0 days Quantity: 1 {Box} Refills: 4 Ordered:01-Jul-2015 BlakeAdelfo velasquez DO, DO, Kathleen Start : 01-Jul-2015 Active Synthroid 125 MCG Oral Tablet 1 (one) Tablet qd for 0 days Quantity: 30 {Tablet} Refills: 7 Ordered:13-Jan-2018 Adelfo Lozano DO, DO, Kathleen Start : 13-Jan-2018 Active VITAMIN D3, 39857IUPT (Oral Capsule) 1 Capsule 2 x week [...] : 22-Mar-2010 End : 22-May-2010 Inactive NYSTATIN, 405672AWMW/GM (External Powder) Powder TID/PRN to affected area [...] days Quantity: 21 {Tablet} Refills: 0 Ordered:12-Nov-2011 Korincasie ONLINE MERCHANDISING COORDINATORElida Start : 12-Nov-2011 End : 19-Nov-2011 Inactive [...] Discontinued Comments:new dose-- feels better on danny Lexapro 10 MG Oral Tablet 1 (one) Tablet daily for 30 days Quantity: 30 {Tablet} Refills: 3 Ordered:14-Feb-2018 Adelfo Lozano DO, DO, Kathleen Start : 14-Feb-2018 End : 14-Feb-2018 Discontinued Comments:wt gain Lisinopril-Hydrochlorothiazide 20-12.5 MG Oral Tablet 1 (one) [...] at times Status: Inactive as of 22-Mar-2017 Bloody stools (K92.1, 578.1) Status: Inactive as [...] (R50.9, 780.60) Status: Resolved as of 29-Jul-2009 Fever and chills (R50.9, 780.60) Status: Resolved as of 14-Feb-2018 Fever, unspecified (R50.9, 780.60) Status: Resolved as [...] 10-Jul-2010 Status: Resolved as of 09-Apr-2011 poison juan Status: Inactive as of 16-Aug-2008 Pulmonary embolism (I26.99, 415.19) Status: Resolved as of 30-May-2012 Racing heart beat (R00.0, 785.0) Status: Resolved as of 14-Feb-2018 Rash (R21, 782.1) Comments: usure of rash- [...] Completed Comments: Biopsy by Dr. Rivero 11/03 - [place] Hernia repair Completed Comments: 02/08 LAPAROSCOPY, NOS Completed Comments: 1986 Lumpectomy Completed Comments: 1996 SMALL BOWEL, NOS Completed Comments: Resection, no malignancy 10/05 Splenectomy Completed Comments: 1978 TONSILLECTOMY, NOS Completed Comments: Rt, Dr. Overton, 10/05 Date Value Details 06-Dec-2017 Venous Duplex Lower Extremity Result: Comments: See Note; NOTES: [facility] Cardiovascular Services [address] [place] [address] Venous Duplex US, Unilateral 12/04/17 1529 MR#: [id number] Acct: [id number] Name: MARIAELENA ALMEIDA Rep #: [id number] : 1970 47 From: Gerard Ford MD [...] Dictated: 12/04/17 1529 Date Transcri bed: 12/06/172124 Clinical Data Management Director: Signed 11-Nov-2017 Discharge Instruction Result: Comments: See Note; NOTES: [facility] Medical Records Department [address] [place] [address] Discharge Instruction 11/11/172211 MR#: [id number] Acct: [id number] Name: BREEZY ESPINOSAMARIAELENA L Rep #: [id number] : 1970 47 From: Indio Chisholm DO [...] your Primary Care Provider. Call [facility] ([phone]) or report to the closest Emergency Room. Call 911 if necessary. 11/11/172212 <Electronically signed by Indio Chisholm DO> Date Indio Chisholm DO Cosigner Signature (If Indicated): Date CC: Sho Lozano DO 11-Nov-2017 Emergency Department Summary Result: Comments: See Note; NOTES: [facility] Medical Records Department [address] [place] [address] Emergency Department Summary 11/11/172208 MR#: [id number] Acct: [id number] Name: MARIAELENA FORMAN Rep #: [id number] : 1970 47 From: Indio Chisholm DO [...] contusion] This note w as generated with [employer] dictation software. It may contain incorrect words, [...] your Primary Care Provider. Call [facility] ([phone]) or report to the closest Emergency Room. Call 911 if necessary. 11/11/17 2211 & amp;#60;Electronically signed by Indio Chisholm DO> Date Indio Chisholm DO Cosigner Signature (If Indicated): Date CC: Sho Lozano DO 11-Nov-2017 Knee 3 Views Result: Comments: See Note; NOTES: [facility] Imaging Services [address] [place] [address] Knee 3 Views MR#: [id number] Acct: [id number] Name: MARIAELENA FORMAN Rep #: [id number] : 1970 F 47 From: Olena Gilman MD PCP: Sho Lozano DO Status: REG ER Study: Knee 3 Views Date of Exam: 11/11/17 Exam# [id number] Ordering Dr: Indio Chisholm DO STUDY: X-RAY [...] CC: Sho Lozano DO; Indio Chisholm DO Clinical Data Management Director: Signed 11-Nov-2017 Hand Min 3 Views Result: Comments: See Note; NOTES: [facility] Imaging Services [address] [place] [address] Hand Min 3 Views MR#: [id number] Acct: [id number] Name: BREEZY MORTONMARIAELENA L Rep #: [id number] : 1970 F 47 From: Olena Gilman MD PCP: Sho Lozano DO Status: REG ER Study: Hand Min 3 Views Date of Exam: 11/11/17 Exam# [id number] Ordering Dr: Indio Chisholm DO STUDY: X-RAY - LE FT HAND REASON FOR EXAM: Female, 47 years old. Fall. Pain around second MCP joint. TECHNIQUE: 3 view(s) of the hand. COMPARISON: None. FINDINGS: Slight limitation due to ring on the fourth digit. There is no fracture or dislocation. Joint spaces are well-maintained. Soft tissues and bony structures are unremarkable. ORDER # : [id number] RAD/Hand Min 3 Views IMPRESSION: Normal x-ray examination of the hand. Electronically Signed: Olena Gilman MD at 21:55 EDT Tel , Service support , F ax [phone] CC: Sho Lozano DO; Indio Chisholm DO Clinical Data Management Director: Signed 11-Nov-2017 Knee 3 Views Result: Comments: See Note; NOTES: [facility] Imaging Services [address] [place] [address] Knee 3 Views MR#: [id number] Acct: [id number] Name: MARIAELENA FORMAN Rep #: [id number] : 1970 F 47 From: Olena Gilman MD PCP: Sho Lozano DO Status: [facility] Study: Knee 3 Views Date of Exam: 11/11/17 Exam# [id number] Ordering Dr: Indio Chisholm DO STUDY: X-RAY [...] CC: Sho Lozano DO; Indio Chisholm DO Clinical Data Management Director: Signed 31-Oct-2017 Operative Report Result: Comments: See Note; NOTES: [facility] Medical Records Department [address] [place] [address] Operative Report 10/31/17 1552 MR#: [id number] Acct: [id number] Name: MARIAELENA FORMAN Rep #: [id number] : 1970 47 From: Cathleen Fields MD PCP: Sho Lozano DO Status: REG SDC Y Location: [place] [address] Report of Operation Date of Procedure: 10/31/17 [...] Normal-appearing cervix, vag isha and endocervical canal. cherry sorter: Shabnam Cuadra MS3 Type of Anesthesia:: General [...] Result: Comments: See Note; NOTES: [facility] Medical Records Department [address] [place] [address] Instructions for Home/Discharge Instructions 10/31/17 1551 MR#: [id number] Acct: [id number] Name: MARIAELENA FORMAN Rep #: [id number] : 1970 47 From: Cathleen Fields MD PCP: Sho Lozano DO Status: REG [facility] Discharge Diet: No Restrictions Discharge Activity: Return [...] w Up With: Cathleen Fields MD - [phone] When: Dr. Fields's office 2-4 weeks or as needed 10/31/17 4642 <Electronically signed by Cathleen Fields MD> Date Cathleen Fields MD CC: Sho Lozano DO 02-Oct-2017 Venous Duplex Lower Extremity Result: Comments: See Note; NOTES: [facility] Cardiovascular Services [address] [place] [address] Venous Duplex US - Panda Extrem 10/02/17 1307 MR#: [id number] Acct: [id number] Name: MARIAELENA FORMAN Rep #: [id number] : 1970 47 From: Gerard Ford MD [...] Dictated: 10/02/17 1307 Date Transcribed: 10/02/17 1508 Clinical Data Management Director: Signed 02-Oct-2017 Chest PA and Lateral Result: Comments: See Note; NOTES: [facility] Imaging Services [address] [place] [address] Chest PA and Lateral MR#: [id number] Acct: [id number] Name: MARIAELENA FORMAN Saray Rep #: [id number] : 1970 F 47 From: Arthur Sandhu MD PCP: Sho Lozano DO Status: REG CLI Study: Chest PA and Lateral Date of Exam: 10/02/17 Exam# [id number] Ordering Dr: Sho Lozano DO STUDY: X-RAY [...] Service support , CC: Sho Lozano DO Clinical Data Management Director: Signed 28-Mar-2017 Abdomen/Pelvis WITH Contrast Result: Comments: See Note; NOTES: [facility] Imaging Services [address] [place] [address] Abdomen/Pelvis WITH Contrast MR#: [id number] Acct: [id number] Name: MARIAELENA FORMAN R ep #: [id number] : 1970 F 46 From: Emre Tan MD PCP: Sho Lozano DO Status: REG CLI Study: Abdomen/Pelvis WITH Contrast Date of Exam: 03/28/17 Exam# [id number] Ordering Dr: Sho Lozano DO STUDY: CT [...] Emre Tan MD at 10:10 EST Tel [phone], Service support , CC: Sho Lozano DO Clinical Data Management Director: Signed 29-Jul-2016 Brain/Head without Contrast Result: Comments: See Note; NOTES: [facility] Imaging Services [address] [place] [address] Stephendana 4d Brain/Head without Contrast MR#: [id number] Acct: [id number] Name: MARIAELENA FORMAN Rep #: [id number] : 1970 F 45 From: Meme Tolliver MD PCP: Sho Lozano DO Status: REG ER Study: Brain/Head without Contrast Date of Exam: 07/29/16 Exam# [id number] Ordering Dr: Edu Love MD STUDY: CT [...] CC: Sho Lozano DO; Edu Love MD Clinical Data Management Director: Signed 27-Sep-2015 CTA Chest W/WO Contrast Result: Comments: See Note; NOTES: [facility] Imaging Services [address] [place] [address] Frankie 4d CTA Chest W/WO Contrast MR#: [id number] Acct: [id number] Name: MARIAELENA HAMEED Rep #: [id number] : 1970 F 45 From: Geronimo Vallejo DO PCP: Sho Lozano DO Status: REG CLI Study: CTA Chest W/WO Contrast Date of Exam: 09/27/15 Exam# [id number] Ordering Dr: Ranjeet Newman STUDY: CTA CHEST [...] Geronimo Vallejo DO at 18:56 EDT Tel [phone], Service support [phone], CC: Sho Lozano DO; Ranjeet Newman Clinical Data Management Director: Signed 27-Sep-2015 Venous Duplex Lower Extremity Result: Comments: See Note; NOTES: [facility] Cardiovascular Services [address] [place] [address] Venous Duplex US, Unilateral 09/27/15 1544 MR#: [id number] Acct: [id number] Name: MARIAELENA FORMAN Rep #: [id number] : 1970 45 From: Gerard Ford MD [...] Ordering Physician: Elida Horton Performed By: Anuj Wyman, RVT 09/27/15 1635 Date Gerard Ford MD CC: Elida Horton; Sho Lozano DO Date Dictated: 09/27/15 1544 Date Transcribed: 09/27/15 1635 Clinical Data Management Director: Signed 20-Jun-2015 Sleep Study Report Result: Comments: See Note; NOTES: [facility] SLEEP DISORDER [facility] [address] [place] [address] Polysomnography with NCPAP MR#: [id number] Acct: [id number] Name: MARIAELENA POTTER Rep #: [id number] : 1970 44 From: Art Arevalo MD [...] version). Please note that a reference to [facility] AHI in this report is consistent with the current Hypopnea definition according to Medicare Criteria and an AAS AHI reference is consi stent with the current Hypopnea definition according to the AASM criteria and is recognized by [facility] as the RDI. PROCEDURE: The study was attended continuously by a hazardous materials waste technician. Monitored paramet ers included left and [...] calculated body mass index of 50.1 and Miami Sleepiness Scale score of 11/24. The patient [...] sleep period of time of 358.8 mikki sanedep and total sleep time 285.8 minutes, resulting [...] sleepy. INTERPRETING PHYSICIAN: Art Arevalo Jr., M.D. William Novak, MD T: NTS JOB: [id number] CC: Art hutchins MD 28 2806/20/15 1556 <Electronically signed by Art Arevalo MD> Date Art Arevalo MD Co-si gnature (if applicable) Date Signed 20-May-2015 Operative Report Result: Comments: See Note; NOTES: [facility] Medical Records Department [address] [place] [address] Operative Report MR#: [id number] Acct: [id number] Name: MARIAELENA FORMAN Rep #: [id number] : 1970 44 From: Raymundo Ordonez MD [...] biopsies, and sigmoid snare polypectomy. SURGEON: Raymundo Cebul, M.D. DESCRIPTION OF PROCEDUR E: Time out [...] cecum and ileocecal valve area was achieved. Hancock el prep was adequate. There was still [...] Raymundo Ordonez MD T: NT S JOB: [id number] 05/20/15 0555 <Electronically signed by Raymundo Ordonez MD> Date Raymundo Ordonez MD Cosigner Signature (If Indicat ed): Date CC: Sho Lozano DO; Raymundo Ordonez MD Date Dictated: 05/19/15 1008 Date Transcribed: 05/19/15 1008 Clinical Data Management Director: Signed 13-May-2015 Sleep Study Report Result: Comments: See Note; NOTES: [facility] [address] [place] [address] Unattended Sleep Study MR#: [id number] Acct: [id number] Name: BREEZY MORTONMARIAELENA Saray Rep #: [id number] : 1970 44 From: Silverio Nolen MD [...] version). Please note that a reference to [facility] AHI in this report is consistent with the current Hypopnea definition according to Medicare Criteria and an AAS AHI reference is cons istent with the current Hypopnea definition according to the AASM criteria and is recognized by [facility] as the RDI. PROCEDURE: The study was unattended in the patient's home setting. Monitored parameter s included airflow with nasal pressure transducer, chest and abdominal plethysmography efforts, and oxygen saturation with heart rate. INTRODUCTION: This is an ApneaLink apnea screening study perfo rmed on this 44-year-old female with a history of asthma, gastroesophageal reflux disease, hypothyroidism, and an Miami Sleepiness Scale score of 11 as well [...] abnormal ApneaLink screening study consist ent with bete-yy-pglrhhuq obstructive sleep apnea. If this is felt to be clinically significant, formal CPAP titration study should be performed. Silverio Nolen MD T: MIGUEL JOB: [id number] CC: Silverio Nolen MD 32 1133 05/13/15 1517 <Electronically signed by Silverio Nolen MD> Date Silverio mcclure MD Co-signature (if applicable) Date Signed 18-Apr-2015 Emergency Department Summary Result: Comments: See Note; NOTES: [facility] Medical Records Department [address] [place] [address] Emergency Department Summary MR#: [id number] Acct: [id number] Name: MARIAELENA FORMAN Rep #: [id number] : 1970 44 From: Jesse Barrera MD PCP: Sho Lozano DO Status: DEP ER DATE OF SERVICE: 04/08/2015 CHIEF COMPLAINT: Chest pain. HISTORY OF MO ESENT ILLNESS: This is a 44-year-old female [...] DISPOSITION: Discharge. Dr. Jesse Barrera MD T: [facility] JOB : [id number] 04/18/15 0309 <Electronically signed by Jesse Barrera MD> Date Jesse Barrera MD Cosigner Signature (If Indicated): D ate CC: Sho Lozano DO Date Dictated: 04/08/151722 Date Transcribed: 04/08/151722 Clinical Data Management Director: Signed 12-Apr-2015 12 Lead Electrocardiogram Result: Comments: See Note; NOTES: [facility] Cardiovascular Services [address] [place] [address] 12 Lead EKG 04/08/151607 MR#: [id number] Acct: [id number] Name: MARIAELENA ARROYO Rep #: [id number] : 1970 44 From: Tommie Luciano MD [...] ECG Confirmed by WISAM RODRIGUES, TOMMIE ([id number]), research editor PERCY JOHN (56) on 04/12/2015 8:32:04 AM Referred By: SOUTH Confirmed By:TOMMIE LUCIANO MD 04/12/15 0832 Date Tommie Luciano MD CC: Sho Lozano DO Date Dictated: 04/08/151607 Date Transcribed: 04/08/151607 Clinical Data Management Director: Signed 12-Apr-2015 12 Lead Electrocardiogram Result: Comments: See Note; NOTES: [facility] Cardiovascular Services [address] [place] [address] 12 Lead EKG 04/08/151714 MR#: [id number] Acct: [id number] Name: MARIAELENA ARROYO Rep #: [id number] : 1970 44 From: Tommie Luciano MD [...] ECG Confirmed by WISAM RODRIGUES, TOMMIE ([id number]), research editor PERCY JOHN (56) on 04/12/2015 8:32:21 AM Referred By: CAL Confirmed By:TOMMIE LUCIANO MD 04/12/15 0832 Date Tommie Luciano MD CC: Sho Lozano DO Date Dictated: 04/08/151714 Date Transcribed: 04/08/151714 Clinical Data Management Director: Signed 08-Apr-2015 Discharge Instruction Result: Comments: See Note; NOTES: [facility] Medical Records Department [address] [place] [address] Discharge Instruction 04/08/15 172 MR#: [id number] Acct: [id number] Name: MARIAELENA FORMAN Rep #: [id number] : 1970 44 From: Jesse Barrera MD PCP: Sho Lozano DO Status: REG ER ED Disposition - Plan for ED Patient: Chief Complaint: Chest Lulu n Instructions: ED Chest Pain, Noncardiac What to do if you have Problems For any increased pain, shortness of breath, bleeding, nausea or vomiting, chest pain, or any unexpected problems, conta ct your doctor. Call [facility] ([phone]) or report to the closest Emergency Room. Call 911 if necessary. 04/08/15 1724 <Electronically signed by Jesse Barrera MD> Da te Jesse Barrera MD Cosigner Signature (If Indicated): Date CC: Sho Lozano DO 08-Apr-2015 Chest PA and Lateral Result: Comments: See Note; NOTES: [facility] Imaging Services [address] [place] [address] Verdana 4d Chest PA and Lateral MR#: [id number] Acct: [id number] Name: BREEZY MARIAELENA MORTON Saray Rep #: [id number] : 1970 F 44 From: Darryl Murphy MD PCP: Sho Lozano DO Status: REG ER Study: Chest PA and Lateral Date of Exam: 04/08/15 Exam# [id number] Ordering Dr: Jesse Orona MD STUDY: X-RAY [...] at 17:26 EST Tel , Service support [phone], CC: Jesse Barrera MD; Sho Lozano DO Clinical Data Management Director: Signed 16-Nov-2014 Spirometry (56462) Comments: ok stable Result: 16-Nov-2014 ELECTROCARDIOGRAM, COMPLETE (ECG) (79759) Comments: nsr no acute chg Result: [MEASUREMENTS ANALYSIS] Date of Test: 11/16/2014 14:41:53; Heart Rate: 66; MO Interval: 190; QRS: 110; QT Interval: 434; Corrected QT Interval (QTc): 444; P Wave [place]: 23; QRS Wave [place]: 10; T Wave [place] : 21; Blood Pressure: 140/76 [ECG DIAGNOSTIC STATEMENTS] Date of Test: 11/16/2014 14:41:53; Summary: Sinus Rhythm -Nonspecific QRS widening. 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 Status: Active Tobacco use: Never smoker. Comments: sames tats 5.3.12 Status: Inactive Smoking Status Name Dates Details Never smoker Vital Signs Date Test Result Details :25 Temperature 98.1 f Comments: Method: Temporal Pulse [...] Arm; Cuff Size: Large Weight 328 lb 28-Lzn-683436:35 Pulse 80 /min Comments: Pattern: Regular Respiration [...] Date Description Value Details :08 Urinalysis, Office (78183) UA - LEUKOCYTE ESTERASE Negative (Normal) UA - NITRITE Negative (Normal) URINE UROBILINGN JASON TIMED 2 mg/dL (Normal) UA - PROTEIN Negative mg/dL (Normal) UA - PH 6.0 (Normal) UA - BLOOD Negative (Normal) UA - SPECIFIC GRAVITY 1.015 (Normal) UA - KETONES Negative mg/dL (Normal) UA - BILIRUBIN Negative (Normal) UA - GLUCOSE Negative (Normal) :02 HgA1C , Office (35878) HgA1C , Office 6.1 % (Normal) Range: 4.6 - 7.1 :02 Blood Glucose , Office (08926) Blood Glucose , Office 96 (Normal) 6-Lrv-757257:39 Crystals, Body Fluid Comments: [facility] [id number] [place], [place], [id number] PATH REV Reviewed (Normal) Comments: Negative for malignant cells and crystals.Bloody specimen.Graham Velez M.D. 12/05/17 AMENDED REPORT 12/05/17 3057 PATH REV previously reported as: Will follow SOURCE/BF SYNOVIAL (Normal) CRYSTALS/BF SEE PATH REV (Normal) 1-Iit-916943:39 Culture, Body Fluid Comments: [facility] [id number] [place], [place], [address] CUBF See Note (Normal) Comments: AMENDED Results called on 12/05/17 by TED to AUGUSTUS AT DRNakulRMILLE2 .List Antibiotics Last 48 Hours? UNKList Antibiotics to be Started? UNKGram StainCentrifuged Specimen? Culture performed on centrifuged specimen Gram Stain 4+ Red Blood Cells Rare White Blood Cells No organisms seen Body Fluid CultCulture exhibits no growth. Cult, AnaerobicNo growth in 5 days. 5-Wfs-741004:39 Culture, Body Fluid Comments: [facility] [id number] [address] [place], [place], [address] CUBF See Note (Normal) Comments: RESULTS CALLED TO DR JOHN 12/04/17 1921 Gokul Boo. REPORT READ BACK BY DR JOHN. List Antibiotics Last 48 Hours? UNKList Antibiotics to be Started? UNKGram StainGram Stain 4+ Gram positive diplococci 4-Buf-204968:39 Synovial Fluid RBC, WBC AND Comments: [facility] [address] [place], [place], [id number] Diff PATH COM/SYFL May follow (Normal) OTHER [...] Bloody (Normal) SYNOVIAL SOURCE LEFT LEG (Normal) 39-Wqy-02790: ENDOMETRIAL See Note (Normal) Comments: [facility] [address] [place], [address] 00 BX/CURETTINGS Comments: Patient: MARIAELENA FORMAN : 1970 (47/F) Acct Num: [id number] Phys: Cathleen Fields MD Unit Num: [id number] Loc: [facility] [place] Specimen: [id number] Received: 11/01/17 - 1002 Spec T ype: ENDOM BX/C TISSUES TISSUES: Endometrium, NOS GROSS DESCRIPTION Received in fixative is one container labeled with the patient's name and designated endometrial cure ttings. The specimen consists of multiple irregular fragments of light leizabeth soft tissue that in aggregate measure 2 x 1 x 0.1 cm. The specimen is totally submitted in one cassette. / AM:nancy 11/01/17 TC:5 CPT: 27734 HEADER OPERATION: Hysteroscopy, D AND C, resection, Symphion PRE-OP DIAGNOSIS: Postmenopausal bleeding, thickened endometrium TISSUE SUBMITTED: Endometrial curettings MICROSCOPIC DESCRIPTION Slides are reviewed. MICROSCOPIC DIAGNOSIS Endometrial curettings: Mildly disordered proliferative endometrium. Fragments of myometrium. SJ:nancy 11/05/17 Signed Graham Velez 11/05/17 <signature on file> 70-Qlo-316893:30 Type AND Screen Comments: Reason for Type AND Screen/Red Cells: [facility] [address]is[address] [place], [place], [id number] Antibody Screen NEGATIVE (Normal) BLOOD TYPE GEL B POSITIVE (Normal) 79-Xbf-402497:15 ,Urine Comments: [facility] Maurdvrvsu[address] [place], [address] HCGUQUAL Negative {Negative} (Normal) Comments: Very dilute urine specimens, as indicated by a low specificgravity, may not contain nutrition representative levels of hCG.If is still suspected, a first morning urinespecimen should be collected 48 hours later and tested. 7-Ika-847345:34 CBC With Differential/Platelet Comments: PATIENT WAS FASTINGPERFORMED BY: R2integrated[address] [id number] BY: [employer]integrated [employer] [facility] [id number] Immature Grans (Abs) 0.0 {x10E3/uL} (Normal) Range: [...] 3.77-5.28 WBC 7.2 {x10E3/uL} (Normal) Range: 3.4-10.8 3-Qlh-880681:34 Comp. Metabolic Panel Comments: PATIENT WAS FASTINGPERFORMED BY: R[address]integrated[address] [id number] BY: R2integratedJose [place] 9309770 [facility] [id number] (14) ALT (SGPT) 39 [iU]/L (Abnormal) Range: [...] 6-24 Glucose 96 mg/dL (Normal) Range: 65-99 4-Jsu-375261:34 NMR LipoProfile Comments: PATIENT WAS FASTINGPERFORMED BY: BN LabCo[address] [id number] BY: LabCoChristian Health Care CenterRsjsna0028 [facility] [id number] LP-IR Score 87 (Abnormal) Comments: INSULIN RESISTANCE MARKER <--Insulin Sensitive Insulin Resistant--> Percentile in Reference PopulationInsulin Resistance ScoreLP-IR Score Low 25th 50th 75th High <27 27 45 63 >63LP-IR Score is inaccurate if patient is non-fasting. .The LP-IR score is a laboratory developed i [facility] that has beenassociated with insulin [...] 1600 - 2000 Very High > 2000 2-Aug-2018 TSH 2.270 {uIU/mL} Comments: PATIENT WAS FASTINGPERFORMED BY: Lab[address] [id number] BY: [facility]6370 [facility] [id number] 11:34 (Normal) Range: 0.450-4.500 03-Oct-2017 Vitamin D, 25-Hydroxy 15.4 ng/mL Comments: PATIENT WAS FASTINGPERFORMED BY: [facility]Co[address] [id number] BY: LabPerry County Memorial HospitalTnnbbf7368 [address] [facility] HospitalDublin [place] [id number] 11:34 (Abnormal) Range: 30.0-100.0 Comments: Vitamin D deficiency has been defined by the Banks ofMedicine and an Endocrine Society practice guideline as alevel of serum 25-OH vitamin D less than 20 ng/mL (1,2).The Endocrine Society went on to further define vitamin Dinsufficiency as a level between 21 and 29 ng/mL (2).1. IOM (Banks of Medicine). 2010. Dietary reference intakes for calcium and D. [place]: The National Academies Press.2. Sharon MF, Adarsh NC, Lisa SANDERSON, et al. Evaluation, treatment, and prevention of vitamin D deficiency: an Endocrine Society clinical practice guideline. JCEM. 2010; 96(7):1911-30. 2-Vpj-704295:34 Microscopic Examination Comments: PATIENT NOT FASTINGPERFORMED BY: [facility] Bbscev8684 [facility] Hospitalin [place] [id number] Bacteria None seen (Normal) Mucus Threads Present (Normal) Epithelial Cells (non renal) 0-10 {/hpf} (Normal) Range: 0 - 10 RBC 0-2 {/hpf} (Normal) Range: 0 - 2 WBC 0-5 {/hpf} (Normal) Range: 0 - 5 1-Jpf-371495:34 URINALYSIS, W/ MICRO Comments: PATIENT NOT FASTINGPERFORMED BY: [facility]6370 [facility] [id number] Information: [id number] (42635) Microscopic Examination See below: (Normal) Comments: Microscopic was indicated and was performed. Nitrite, Urine Negative (Normal) Urobilinogen,Semi-Qn 0.2 mg/dL (Normal) Range: 0.2-1.0 Bilirubin Negative (Normal) Occult Blood Negative (Normal) Ketones Negative (Normal) Glucose Negative (Normal) Protein Negative (Normal) WBC Esterase Trace (Abnormal) Appearance Clear (Normal) Urine-Color Yellow (Normal) pH 7.0 (Normal) Range: 5.0-7.5 Specific [place] 1.012 (Normal) Range: 1.005-1.030 9-Cst-985789:34 MICROALBUMIN: CREATININE RATIO Comments: PATIENT NOT FASTINGPERFORMED BY: i[facility] GroupUNC Health Johnston Clayton [id number] (59512) AND (82469) Alb/Creat Ratio <10.6 {mg/g_creat} (Normal) Range: 0.0-30.0 Albumin, Urine <3.0 ug/mL (Normal) Creatinine, Urine 28.2 mg/dL (Normal) 2-Djg-627088:17 HgA1C , Office (94174) HgA1C , Office 6.0 % (Normal) Range: 4.6 - 7.1 4-Uos-377176:17 Blood Glucose , Office (40768) Blood Glucose , Office 106 (Normal) 95-Szc-925621:06 URINE KATHY CULTURE-IDENTIFICATN Comments: PATIENT NOT FASTINGPERFORMED BY: [facility]Co Dwzuxs9977 [facility] [id number] Information: SRC:LAURE (96094) Result 1 BETAGB (Abnormal) Comments: Beta hemolytic [...] (CLSI 2011) Urine Final report (Abnormal) Culture,Comprehensive 00-Qqh-642929:07 Urinalysis, Office (20108) UA - LEUKOCYTE ESTERASE Negative (Normal) UA - NITRITE Negative (Normal) URINE UROBILINGN JASON TIMED 2 mg/dL (Normal) UA - PROTEIN Negative mg/dL (Normal) UA - PH 7.5 (Normal) UA - BLOOD Negative (Normal) UA - SPECIFIC GRAVITY 1.015 (Normal) UA - KETONES Negative mg/dL (Normal) UA - BILIRUBIN Negative (Normal) UA - GLUCOSE Negative (Normal) 2-Ldn-158300:26 HEPATITIS PANEL (95782) Comments: PATIENT NOT FASTINGPERFORMED BY: [employer] [facility] [id number] Hep C Virus Ab 0.1 {s/co_ratio} (Normal) Range: 0.0-0.9 Comments: Negative: < 0.8 Indeterminate: 0.8 - 0.9 Positive: > 0.9 . The CDC recommends that a positive HCV antibody result be followed up with a HCV Nucleic Acid Amplification test (923239). Hep B Core Ab, IgM Negative (Normal) HBsAg Screen Negative (Normal) Hep A Ab, IgM Negative (Normal) 8-Tks-651966:26 ANTIMITOCHONDRIAL ANTIBODY Comments: PATIENT NOT FASTINGPERFORMED BY: [employer] [facility] [id number] (42652) Mitochondrial (M2) Antibody <20.0 {Units} (Normal) Range: 0.0-20.0 Comments: Negative 0.0 - 20.0 Equivocal 20.1 - 24.9 Positive >24.9 . Mitochondrial (M2) Antibodies are found in 90-96% of patients with primary biliary cirrhosis. 2-Rke-815754:26 TRANSFERRIN (73579) Comments: PATIENT NOT FASTINGPERFORMED BY: [employer]ong Vbqnav9840 [facility] [id number] Transferrin 310 mg/dL (Normal) Range: 200-370 0-Cvm-565001:26 GGT (GAMMA GLUTAMYLTRANSFERASE) Comments: PATIENT NOT FASTINGPERFORMED BY: [employer] [facility] [id number] (40468) GGT 40 [iU]/L (Normal) Range: 0-60 8-Gin-124893:26 FERRITIN (64222) Comments: PATIENT NOT FASTINGPERFORMED BY: R2integratedChristian Health Care CenterSbtsrd7147 [facility] [id number] Ferritin, Serum 55 ng/mL (Normal) Range: 15-150 :26 CMV IGM ANTBDY (61586) Comments: PATIENT NOT FASTINGPERFORMED BY: R2integratedChristian Health Care CenterRzkvry4076 [facility] [id number] Cytomegalovirus (CMV) Ab, IgM <30.0 AU/mL (Normal) Range: 0.0-29.9 Comments: Negative <30.0 Equivocal 30.0 - 34.9 Positive >34.9 A positive result is generally indicative of acute infection, reactivation or persistent IgM production. :26 CERULOPLASMIN (00159) Comments: PATIENT NOT FASTINGPERFORMED BY: R2integratedChristian Health Care CenterTodbhg6555 [facility] [id number] Ceruloplasmin 35.3 mg/dL (Normal) Range: 19.0-39.0 :26 ASM (ANTI SMOOTH MUSCLE Comments: PATIENT NOT FASTINGPERFORMED BY: R2integratedJose [place] 9309770 [facility] [id number] ANTIBODY) (48414) Actin (Smooth Muscle) Antibody 8 {Units} (Normal) Range: 0-19 Comments: Negative 0 - 19 Weak positive 20 - 30 Moderate to strong positive >30 . Actin Antibodies are found in 52-85% of patients with autoimmune hepatitis or chronic active hepatitis and in 22% of patients with primary biliary cirrhosis. :26 ANTI-LIVER/KIDNEY MICROSOMAL Comments: PATIENT NOT FASTINGPERFORMED BY: [facility]ifyS[facility] Hospital6370 [facility] [id number] ANTIBODY (70725) Liver-Kidney Microsomal Ab <1.0 {Units} (Normal) Range: 0.0-20.0 Comments: Negative 0.0 - 20.0 Equivocal 20.1 - 24.9 Positive >24.9 . LKM type 1 antibodies are detected in patients with autoimmune hepatitis type 2 and in up to 8% of patients with chronic HCV infection. :26 RIKA (ANTINUCLEAR ANTIBODY) Comments: PATIENT NOT FASTINGPERFORMED BY: [facility] Gjsbzj8851 Diaz RoadDublin [place] [id number] ([address]) RIKA Direct Negative (Normal) 7-Sdg-999920:26 YMCRS-FSYXZZJKPRY-JHUTW (77788) Comments: PATIENT NOT FASTINGPERFORMED BY: [facility] Dscvsy6184 Diaz RoadDublin [place] [id number] AFP, Serum, Tumor Marker 6.6 ng/mL (Normal) Range: 0.0-8.3 Comments: Jaciel ECLIA methodology 90-Req-970691:05 HgA1C , Office (44509) HgA1C , Office 5.8 % (Normal) Range: 4.6 - 7.1 83-Thw-568499:07 C-REACTIVE PROTEIN (23509) Comments: PATIENT WAS FASTINGPERFORMED BY: [facility] Fjgweg7914 Diaz RoadDublin [place] [id number] C-Reactive Protein, Quant 5.0 mg/L (Abnormal) Range: 0.0-4.9 29-Usj-256613:07 VITAMIN B-12 (CYANOCOBALAMIN) Comments: PATIENT WAS FASTINGPERFORMED BY: [facility] Weduoy2367 Diaz RoadDublin [place] [id number] (97045) Vitamin B12 870 pg/mL (Normal) Range: 232-1245 62-Bwf-174590:07 Sed Rate Erythrocyte (37577) Comments: PATIENT WAS FASTINGPERFORMED BY: [facility] Jzxjkl3241 Diaz RoadDublin [place] [id number] Sedimentation Rate-Westergren 7 mm/h (Normal) Range: 0-32 64-Npb-852430:07 CALCIFIDIOL (18292) VIT D 25 Comments: PATIENT WAS FASTINGPERFORMED BY: CB [facility] Dkjdbr3919 Diaz RoadDublin [place] [id number] Vitamin D, 25-Hydroxy 21.8 ng/mL (Abnormal) Range: 30.0-100.0 Comments: Vitamin D deficiency has been defined by the Banks ofMedicine and an Endocrine Society practice guideline as alevel of serum 25-OH vitamin D less than 20 ng/mL (1,2).The Endocrine Society went on to further define vitamin Dinsufficiency as a level between 21 and 29 ng/mL (2).1. IOM (Banks of Medicine). 2010. Dietary reference intakes for calcium and D. [place]: The National Academies Press.2. Sharon MF, Adarsh MAGANA, Lisa SANDERSON, et al. Evaluation, treatment, and prevention of vitamin D deficiency: an Endocrine Society clinical practice guideline. JCEM. 2010; 96(7):1911-30. 27-Zjr-182563:07 METABOLIC PANEL, COMPREHENSIVE Comments: PATIENT WAS FASTINGPERFORMED BY: LabCoChristian Health Care CenterVvdqgv4162 [facility] [id number] (63447) ALT (SGPT) 35 [iU]/L (Abnormal) Range: 0-32 [...] Glucose, Serum 86 mg/dL (Normal) Range: 65-99 72-Uep-705318:07 CBC W/AUTO DIFF WBC (41490) Comments: PATIENT WAS FASTINGPERFORMED BY: LabCoChristian Health Care CenterJphaxf8621 [facility] [id number] Immature Grans (Abs) 0.0 {x10E3/uL} (Normal) Range: [...] 3.77-5.28 WBC 8.0 {x10E3/uL} (Normal) Range: 3.4-10.8 83-Mit-664373:07 LIPID PANEL (44385) Comments: PATIENT WAS FASTINGPERFORMED BY: LabCoChristian Health Care CenterEopnyz1842 [facility] [id number] LDL/HDL Ratio 3.1 {ratio_units} (Normal) Range: 0.0-3.2 Comments: LDL/HDL Ratio Men Women 1/2 Avg.Risk 1.0 1.5 Av g.Risk 3.6 3.2 2X Avg.Risk 6.2 5.0 3X Avg.Risk 8.0 6.1 LDL Cholesterol Calc 142 mg/dL (Abnormal) Range: 0-99 VLDL Cholesterol Josr 65 mg/dL (Abnormal) Range: 5-40 HDL Cholesterol 46 mg/dL (Normal) Triglycerides 325 mg/dL (Abnormal) Range: 0-149 Cholesterol, Total 253 mg/dL (Abnormal) Range: 100-199 07-Xcs-531829:07 TSH (48455) Comments: PATIENT WAS FASTINGPERFORMED BY: [place] 7347370 [facility] [id number] TSH 2.350 {uIU/mL} (Normal) Range: 0.450-4.500 21-Umm-533577:07 T4, FREE (THYROXINE) (51466) Comments: PATIENT WAS FASTINGPERFORMED BY: [address] [id number] T4,Free(Direct) 1.14 ng/dL (Normal) Range: 0.82-1.77 47-Yue-094922:07 T3, FREE (TRIDOTHYRONINE) (69658) Comments: PATIENT WAS FASTINGPERFORMED BY: [address] [id number] Triiodothyronine,Free,Serum 2.7 pg/mL (Normal) Range: 2.0-4.4 84-Lag-957124:16 CBC-Complete Blood Cnt No Diff Comments: [facility] [address] [place], [place], [address] MPV 11.0 fL (Normal) Range: 6.2-12.0 PLT [...] 4.2-5.4 WBC 8.0 K/mm3 (Normal) Range: 4.4-11.0 83-Vdt-507165:16 Ferritin Comments: Has Patient had X-rays with Contrast this admission? NIs Patient Taking Vitamins or Folic Acid Supplements? [facility] [address] [place], [address] FERRITIN 28 ng/mL (Normal) Range: 8-252 21-Ukc-006237:16 Folates, (Folic Acid) Comments: Has Patient had X-rays with Contrast this admission? NIs Patient Taking Vitamins or Folic Acid Supplements? [facility] [address] [place], [phone] FOLATES 43.90 ng/mL (Abnormal) Range: 3.1-17.5 28-Xje-801232:16 Free T3 Comments: Has Patient had X-rays with Contrast this admission? NIs Patient Taking Vitamins or Folic Acid Supplements? [facility] [address] [place], [address] FREE T3 2.4 pg/mL (Normal) Range: 2.18-3.98 55-Bmm-148982:16 Iron Comments: Has Patient had X-rays with Contrast this admission? NIs Patient Taking Vitamins or Folic Acid Supplements? [facility] [address] [place], [address] IRON 85 ug/dL (Normal) Range: 50-170 99-Ioi-672933:16 Lipid Profile Comments: Has Patient had X-rays with Contrast this admission? NIs Patient Taking Vitamins or Folic Acid Supplements? [facility] [address] [place], [phone] VLDL 29 mg/dL (Normal) Range: 5-40 LDL [...] 200-240 mg/dL Borderline >240 mg/dL High Risk 77-Fud-871612:16 Liver Profile Comments: Has Patient had X-rays with Contrast this admission? NIs Patient Taking Vitamins or Folic Acid Supplements? [facility] [address] [place], [phone] D BILI 0.15 mg/dL (Normal) Range: 0.00-0.30 T BILI 0.60 mg/dL (Normal) Range: 0.20-1.00 ALT 32 U/L (Normal) Range: 12-78 ALK P 101 U/L (Normal) Range: 45-117 AST 15 U/L (Normal) Range: 15-37 GLOB 4.0 g/dL (Abnormal) Range: 2.3-3.5 ALB 3.6 g/dL (Normal) Range: 3.4-5.0 T PROT 7.6 g/dL (Normal) Range: 6.4-8.2 98-Ggt-730749:16 Magnesium Comments: Has Patient had X-rays with Contrast this admission? NIs Patient Taking Vitamins or Folic Acid Supplements? [facility] [address] [place], [address] MG 2.1 mg/dL (Normal) Range: 1.8-2.4 49-Kpi-209400:16 Partial Thromboplast Time Comments: [facility] [address] [place], [address] PTT 28.6 s (Normal) Range: 24.1-36.2 94-Ehi-239191:16 Phosphorus Comments: Has Patient had X-rays with Contrast this admission? NIs Patient Taking Vitamins or Folic Acid Supplements? [facility] [address] [place], [address] PHOS 2.9 mg/dL (Normal) Range: 2.5-4.9 66-Ige-127979:16 Prothrombin Time w/INR Comments: [facility] [address] [place], [address] INR 1.0 (Normal) PROTIME 12.5 s (Normal) Range: 11.7-14.9 55-Hfk-794228:16 T4 Free Direct Comments: Has Patient had X-rays with Contrast this admission? NIs Patient Taking Vitamins or Folic Acid Supplements? [facility] [address]tlpixkt[address] [place], [phone] T4 FREE DIRECT 0.99 ng/dL (Normal) Range: 0.76-1.46 48-Szs-004383:16 Thyroid Stim Hormone (TSH) Comments: Has Patient had X-rays with Contrast this admission? NIs Patient Taking Vitamins or Folic Acid Supplements? [facility] [address]qhiql[address] [place], [address] TSH 1.78 {uIU/mL} (Normal) Range: 0.358-3.74 92-Ddk-843450:16 Vitamin B12 480 pg/mL (Normal) Comments: [facility] [address]gun[address] [place], [address] Range: 211-911 95-Tje-999364:40 Basic Metabolic Profile (BMP) Comments: 'TROP' Serial specimen #1, #2, #3, or #4: 1[facility] [address] [place], [id number] GAP 7 (Normal) Range: 5-15 CO2 31.0 [...] 7-18 GLU 101 mg/dL (Normal) Range: 70-110 62-Rmn-599731:40 CBC W/Diff, Automated Comments: [facility] [address] [place], [address] Absolute Lymph 2.73 {X10_3/ul} (Normal) Range: 0.83-4.51 [...] 4.2-5.4 WBC 8.5 K/mm3 (Normal) Range: 4.4-11.0 76-Egi-329862:40 Partial Thromboplast Time Comments: [facility] [address] [place], [address] PTT 26.2 s (Normal) Range: 24.1-36.2 06-Kcw-471048:40 Prothrombin Time w/INR Comments: [facility] [address] [place], [address] INR 0.9 (Normal) PROTIME 11.3 s (Abnormal) Range: 11.7-14.9 70-Eeq-945689:40 Troponin-I Comments: 'TROP' Serial specimen #1, #2, #3, or #4: [facility] [address]cxuu[address] [place], [id number] TROPONIN-I < 0.02 ng/mL (Normal) Comments: TROPONIN-I EXPECTED VALUES <0.05 NEGATIVE 0.06 - 0.[address] > OR = 0.[address] 02-May-20169:44 PAP I-G HPV Hi Risk Comments: CYTOLOGY INFORMATION:- CLINICAL INFORMATION: LMP NA- DATE LMP/MENOPAUSE: LMP- COLLECTION VIAL: Thin Prep Vial- CABINET FINISHER SOURCE: CERVICAL- COLLECTION TECHNIQUE: BRUSH ONLY/CERVIX BROOM ONLYCYTOLOGY INFORM ATION:- CLINICAL INFORMATION: LMP NA- DATE LMP/MENOPAUSE: LMP- COLLECTION VIAL: Thin Prep Vial- CABINET FINISHER SOURCE: CERVICAL- COLLECTION TECHNIQUE: BRUSH ONLY/CERVIX BROOM ONLYSpecimen Comment: [id number] Comment: No. of containers..01 CYTYC Thin Prep VialLabCorp (refer to report for specific site)refer to report for address and phone number HPV HC,HGH RISK Negative Comments: This high-risk HPV test detects thirteen high-risk types(16/18/31/33/35/39/45/51/52/56/58/59/68) withoutdifferentiation.Performed at: - [facility] [id number] (Normal) b Director: Marichuy Matt MD, Phone: [phone] at: = - [facility] [id number] Director: Marichuy Matt MD, Phone: [phone] PAPR Comment Comments: The Pap smear is [...] system. (Normal) PERFORM Comment Comments: Shahnaz Molina, Route Agent (ASCP) (Normal) ADEQ Comment Comments: Satisfactory for evaluation. Endocervical and/or squamous metaplasticcells (endocervical component) are present. (Normal) DIAGN Comment Comments: NEGATIVE FOR INTRAEPITHELIAL LESION AND MALIGNANCY. (Normal) :16 TSH (77201) Comments: PATIENT WAS FASTINGPERFORMED BY: Play[employer]ongrp Tbukkk5313 [employer] [place] [id number] TSH 4.230 {uIU/mL} (Normal) Range: 0.450-4.500 46-Flm-530970:16 CMV ANTIBODY (94473) Comments: PATIENT WAS FASTINGPERFORMED BY: Playmysongrp Hfagrz4701 [employer] [place] [id number] Cytomegalovirus (CMV) Ab, IgG >10.00 U/mL (Abnormal) Range: 0.00-0.59 Comments: Negative <0.60 Equivocal 0.60 - 0.69 Positive >0.69 93-Rqk-432131:16 CMV IGM ANTBDY (60217) Comments: PATIENT WAS FASTINGPERFORMED BY: Play[employer]ongrp Ayesxr2687 [employer] [place] [id number] Cytomegalovirus (CMV) Ab, IgM <30.0 AU/mL (Normal) Range: 0.0-29.9 Comments: Negative <30.0 Equivocal 30.0 - 34.9 Positive >34.9 A positive result is generally indicative of acute infection, reactivation or persistent IgM production. :16 EB ANTIBODY VIRAL CAPSID Comments: PATIENT WAS FASTINGPERFORMED BY: Thompson SCI70 [facility] [id number] (14745) X2 Interpretation: SPRCS (Normal) Comments: EBV Interpretation [...] <36.0 Equivocal 36.0 - 43.9 Positive >43.9 71-Cav-590774:16 LDH (LD) (LACTATE DEHYDROGENASE) Comments: PATIENT WAS FASTINGPERFORMED BY: [facility]6370 [facility] [id number] (28619) LDH 191 [iU]/L (Normal) Range: 119-226 33-Qfi-631834:16 RHEUMATOID FACTOR-QUANT (24184) Comments: PATIENT WAS FASTINGPERFORMED BY: [facility]6370 [facility] [id number] RA Latex Turbid. 7.3 {IU/mL} (Normal) Range: 0.0-13.9 97-Lno-294995:16 RIKA (ANTINUCLEAR ANTIBODY) Comments: PATIENT WAS FASTINGPERFORMED BY: [facility]6370 [facility] [id number] (64154) RIKA Direct Negative (Normal) 09-Dfg-960911:16 C-REACTIVE PROTEIN (38809) Comments: PATIENT WAS FASTINGPERFORMED BY: [facility] Gllohp9864 [facility] [id number] C-Reactive Protein, Quant 6.4 mg/L (Abnormal) Range: 0.0-4.9 :16 SED RATE ERYTHROCYTE (51489) Comments: PATIENT WAS FASTINGPERFORMED BY: LabCoChristian [facility] Care CenterYcqprt1330 [facility] [id number] Sedimentation Rate-Westergren 6 mm/h (Normal) Range: 0-32 :16 METABOLIC PANEL, COMPREHENSIVE Comments: PATIENT WAS FASTINGPERFORMED BY: LabCoChristian [facility] Care CenterObzarg4679 [facility] [id number] (62774) ALT (SGPT) 29 [iU]/L (Normal) Range: 0-32 [...] Glucose, Serum 91 mg/dL (Normal) Range: 65-99 15-Ndz-239080:29 Rapid Strep Test, Office (59417) Rapid Strep Test, Office Negative (Normal) :34 D-Dimer Quantitative (DVT/PE) Comments: [facility] [address] [place], [address] D-DIMER QUANT 1.38 {FEU/ug/m} (Abnormal) Range: 0.27-0.49 Comments: D-Dimer ELEVATED (>0.49): Additional studies and clinicalassessments are indicated to conclude diagnosis of:Deep Vein Thrombosis (DVT) or Pulmonary Embolism (PE)CRITICAL VALUE CALLED TO DR. NEWMAN09/26 1622 Nancy Jaimes.RESULTS READ BACK BY SAME . 11-Zoi-325355:54 URINE KATHY CULTURE (JASON Comments: PATIENT NOT FASTINGPERFORMED BY: [facility] Xgikau9415 [facility] [id number] Information: SRC:[facility] [id number] COL COUNT) (97694) Result 1 BETAGB (Abnormal) Comments: Beta hemolytic [...] Final report (Abnormal) Culture,Comprehensive :05 Urinalysis, Office (22320) UA - LEUKOCYTE ESTERASE Negative (Normal) UA - NITRITE Negative (Normal) URINE UROBILINGN JASON TIMED Normal mg/dL (Normal) UA - PROTEIN Negative mg/dL (Normal) UA - PH 7 (Normal) UA - BLOOD Negative (Normal) UA - SPECIFIC GRAVITY 1.020 (Normal) UA - KETONES Negative mg/dL (Normal) UA - BILIRUBIN Negative (Normal) UA - GLUCOSE Negative (Normal) 19-May-2015 EGD ([facility]) See Note (Normal) Comments: [facility] [address] [place], [address] 9:16 Comments: Patient: MARIAELENA FORMAN : 1970 (44/F) Acct Num: [id number] Phys: José Luis RODRIGUES,Raymundo Unit Num: [id number] Loc: EN Specimen: [id number] Received: 05/19/15 - 1155 Spec Type: EGD BIOPSY TISSUES TISSUES: COMMENT B-The results of IHC for Helicobacter pylori will be reported separately ([id number]). GROSS DESCRIPTION A - Received is one [...] one cassette. / ANA MARÍA:tyrell 05/19/15 TC:1 CPT:31070 x8 HEADER OPERATION: EGD with biopsy and [...] file> 19-May-2015 IMMUNOHISTOCHEMISTRY See Note (Normal) Comments: [facility] [address] [place], [address] 0:00 Comments: Patient: MARIAELENA FORMAN : 1970 (44/F) Acct Num: [id number] Phys: Raymundo Ordonez MD Unit Num: [id number] Loc: EN Specimen: [id number] Received: 05/20/15 - 1133 Spec Type: IMMUNO TISSUES TISSUES: SPECIMEN INFORMATION: Tissue Source: Gastric antrum, biopsy Clinical Info: Rectal bleeding, abdominal pain Specimen Number: [id number] CPT code: 29996 METHODOLOGY: Deparaffinized sections of prefer/formalin-fixed tissue or PAP/DQ stained slides are incubated with monoclonal/polyclonal antibodies/oligonucleotide probes. Localization is made via bi otin free immunoperoxidase method. Appropriate controls are performed and reacted as expected. Results on target cell population are indicated in the following table: RESULTS: ANTIBODY / CLONE RESULT H Pylori (polyclonal) negative These tests were developed and their performance characteristics determined by [facility]. They ma y not have been cleared or approved by the U.S. Food and Drug Administration. The FDA has determined that such clearance or approval is not necessary. INTERPRETATION: Gastric antrum, biopsy: Nega tive for Helicobacter pylori organisms. SJ:tyrell 05/20/15 PHYSICIAN AND INSTITUTION [address] [address] Signed Graham Velez 05/20/15 <signature on file> 0-Smi-841255:22 METABOLIC PANEL, COMPREHENSIVE Comments: PATIENT WAS FASTINGPERFORMED BY: [facility] CenterZqyrla1182 [facility] [id number] (34526) ALT (SGPT) 26 [iU]/L (Normal) Range: 0-32 [...] Glucose, Serum 85 mg/dL (Normal) Range: 65-99 7-Any-243850:22 CBC W/AUTO DIFF WBC Comments: PATIENT WAS FASTINGPERFORMED BY: [facility]6370 [facility] [id number] Information: [id number] (72505) Immature Grans (Abs) 0.0 {x10E3/uL} (Normal) Range: [...] 3.77-5.28 WBC 6.5 {x10E3/uL} (Normal) Range: 3.4-10.8 5-Eaj-489943:22 CALCIFIDIOL (09998) VIT D 25 Comments: PATIENT WAS FASTINGPERFORMED BY: R2integrated Fazwjt[address] [facility] [id number] Vitamin D, 25-Hydroxy 18.5 ng/mL (Abnormal) Range: 30.0-100.0 Comments: Vitamin D deficiency has been defined by the Banks ofMetro[facility] Main Campus Medical Centercine and an Endocrine Society practice guideline as alevel of serum 25-OH vitamin D less than 20 ng/mL (1,2).The Endocrine Society went on to further define vitamin Dinsufficiency as a level between 21 and 29 ng/mL (2).1. IOM (Banks of Medicine). 2010. Dietary reference intakes for calcium and D. [place]: The National Academies Press.2. Sharon MF, Adarsh NC, Lisa SANDERSON, et al. Evaluation, treatment, and prevention of vitamin D deficiency: an Endocrine Society clinical practice guideline. JCEM. 2010; 96(7):1911-30. :22 LIPID PANEL (15010) Comments: PATIENT WAS FASTINGPERFORMED BY: R2integrated Wufcbp1804 [facility] [id number] LDL/HDL Ratio 3.5 {ratio_units} (Abnormal) Range: 0.0-3.2 [...] Cholesterol, Total 248 mg/dL (Abnormal) Range: 100-199 2-Vfo-926103:22 TSH (05989) Comments: PATIENT WAS FASTINGPERFORMED BY: [facility]Co[facility] CenterPkxadx0237 [facility] [id number] TSH 2.760 {uIU/mL} (Normal) Range: 0.450-4.500 2-Lzf-371066:40 Basic Metabolic Profile (BMP) Comments: Serial Specimen #1, #2 or #3? 1'TROP' Serial specimen #1, #2, #3, or #4: 1[facility] [address] [place], [address] GAP 5 (Normal) Range: 5-15 CO2 31.0 [...] 7-18 GLU 89 mg/dL (Normal) Range: 70-110 7-Noy-162534:40 CBC W/Diff, Automated Comments: [facility] [address] [place], [address] Absolute Lymph 2.66 {X10_3/ul} (Normal) [...] Serial specimen #1, #2, #3, or #4: [facility] [address]haqmb[address] [place], [address] CKRI 0.7 % (Normal) Range: 0.0-1.4 Comments: RELATIVE INDEX >1.5% IS PRESUMPTIVELY POSITIVE CPKMB 0.8 ng/mL (Normal) Range: 0.0-5.0 Comments: CK-MB and RI Interpretation MB Relative Index Non-AMI <or= 5 NA Indeterminate > 5 <or= 4 AMI > 5 > 4 CPK TOTAL 120 U/L (Normal) Range: 26-192 :40 D-Dimer Quantitative (DVT/PE) Comments: [facility] Dghbdogils9492 [facility] Stefan. [place], [place], [address] D-DIMER QUANT 0.27 {FEU/ug/m} (Normal) Range: 0.27-0.49 Comments: NORMAL D-Dimer level (<0.50) indicates no DVT or PE. :40 Troponin-I Comments: Serial Specimen #1, #2 or #3? 1'TROP' Serial specimen #1, #2, #3, or #4: 1[facility] Aguxxhvmks5837 [facility] [address]. [place], [place], [address] TROPONIN-I < 0.02 ng/mL (Normal) Comments: TROPONIN-I EXPECTED VALUES <0.05 NEGATIVE 0.06 - 0.[address] > OR = 0.[address] 39-Lyp-336808:21 METABOLIC PANEL, COMPREHENSIVE Comments: PATIENT NOT FASTINGPERFORMED BY: [facility] Ekuanl4903 [facility] [id number] (31347) ALT (SGPT) 22 [iU]/L (Normal) Range: 0-32 [...] Glucose, Serum 92 mg/dL (Normal) Range: 65-99 84-Wkb-001428:21 CBC W/AUTO DIFF WBC Comments: PATIENT NOT FASTINGPERFORMED BY: [facility]Co[facility] CenterWhvlwt8216 [facility] [id number] Information: [id number] (21948) Immature Grans (Abs) 0.0 {x10E3/uL} (Normal) Range: [...] 3.77-5.28 WBC 7.3 {x10E3/uL} (Normal) Range: 3.4-10.8 09-Svh-218046:21 TSH (23676) Comments: PATIENT NOT FASTINGPERFORMED BY: CB [facility] Gmurml7734 Diaz RoadDublin [place] [id number] TSH 3.390 {uIU/mL} (Normal) Range: 0.450-4.500 :21 CALCIFIDIOL (53482) VIT D 25 Comments: PATIENT NOT FASTINGPERFORMED BY: CB [facility] Sjymxf1837 Diaz RoadDublin [place] [id number] Vitamin D, 25-Hydroxy 18.9 ng/mL (Abnormal) Range: 30.0-100.0 Comments: Vitamin D deficiency has been defined by the Banks ofMet[facility] Medical Centercine and an Endocrine Society practice guideline as alevel of serum 25-OH vitamin D less than 20 ng/mL (1,2).The Endocrine Society went on to further define vitamin Dinsufficiency as a level between 21 and 29 ng/mL (2).1. IOM (Banks of Medicine). 2010. Dietary reference intakes for calcium and D. [place]: The National Academies Press.2. Sharon MF, Adarsh NC, Lisa SANDERSON, et al. Evaluation, treatment, and prevention of vitamin D deficiency: an Endocrine Society clinical practice guideline. JCEM. 2010; 96(7):1911-30. 24-Awk-127825:21 LIPID PANEL (37031) Comments: PATIENT NOT FASTINGPERFORMED BY: CB [facility] Flrqcz9137 [address] [facility]bl[facility] [place] [id number]; [address]. [address] LDL/HDL Ratio 3.6 {ratio_units} (Abnormal) Range: 0.0-3.2 [...] Cholesterol, Total 250 mg/dL (Abnormal) Range: 100-199 5-Ton-741446:08 Lyme, Western Blot, Comments: PATIENT NOT FASTINGPERFORMED BY: CB [facility] Qggivk0869 [facility] [id number] BY: BN [facility] Qiojzaczsk6965 [facility] [id number] Serum Lyme IgM WB Interp. Negative (Normal) [...] positivity are those recommended by CDC/ASTPHLD.p23=Osp C, w36=hxeyweagk .Note:Sera from individuals with the following may cross react in theLyme Western Blot assays: other spirochetal diseases (periodontaldisease, leptospirosis, relapsing fever, yaws, and pinta);connective autoimmune (Rheumatoid Arthritis and Systemic Lupu sErythematosus and also individuals with Antinuclear Antibody);other infections ([place] Spotted Fever; Shakeel-Solis Virus,and Cytomegalovirus). . IgM [...] Absent (Normal) IgG P93 Ab. Absent (Normal) 6-Gym-151959:08 Lyme Disease Antibody W/ Comments: PATIENT NOT FASTINGPERFORMED BY: R2integrated[address] [id number] BY: [address] [id number] Reflex (00443) Lyme IgG/IgM Ab <0.91 {ISR} (Normal) Range: 0.00-0.90 Comments: Negative <0.91 Equivocal 0.91 - 1.09 Positive >1.09 Please note reference interval change 0-Vmj-207834:08 C-REACTIVE PROTEIN (66435) Comments: PATIENT NOT FASTINGPERFORMED BY: [facility] [id number] BY: [address] [id number] C-Reactive Protein, Quant 5.0 mg/L (Abnormal) Range: 0.0-4.9 5-Mqx-427214:08 Sed Rate Erythrocyte Comments: PATIENT NOT FASTINGPERFORMED BY: R2integrated[address] [id number] BY: [address] [id number] (19776) Sedimentation Rate-Westergren 8 mm/h (Normal) Range: 0-32 2-Nul-354591:08 Metabolic Panel, Comments: PATIENT NOT FASTINGPERFORMED BY: [facility] [id number] BY: [address] [id number] Comprehensive (95695) ALT (SGPT) 22 [iU]/L (Normal) Range: 0-32 [...] Glucose, Serum 89 mg/dL (Normal) Range: 65-99 3-Fbe-312490:08 CBC with auto diff Comments: PATIENT NOT FASTINGPERFORMED BY: CB [facility] Yrybdi3352 [facility] [id number] BY: BN [facility] Zanzteccwe4475 [facility] [id number] Inf ormation: [id number] (87995) Immature Grans (Abs) 0.0 {x10E3/uL} (Normal) Range: [...] 3.77-5.28 WBC 8.0 {x10E3/uL} (Normal) Range: 3.4-10.8 0-Ozy-113838:40 Rapid Flu (16292 x 2) Influenza A Ag neg (Normal) 12-Ubm-789338:27 Urinalysis, Office (59473) UA - LEUKOCYTE ESTERASE Negative (Normal) UA - NITRITE Negative (Normal) URINE UROBILINGN JASON TIMED Normal mg/dL (Normal) UA - PROTEIN Negative mg/dL (Normal) UA - PH 6.5 (Normal) UA - BLOOD Negative (Normal) UA - SPECIFIC GRAVITY 1.010 (Normal) UA - KETONES Negative mg/dL (Normal) UA - BILIRUBIN Negative (Normal) UA - GLUCOSE Negative (Normal) 73-Ovz-472315:22 Urine Test, Office (56525) Urine Test, Office Negative (Normal) 13-Ovk-374820:08 CALCIFIDIOL (13116) VIT D 25 Comments: PATIENT NOT FASTINGPERFORMED BY: [facility]Co[facility] Care CenterDrxada0986 [facility] [id number] Vitamin D, 25-Hydroxy 17.5 ng/mL (Abnormal) Range: 30.0-100.0 Comments: Vitamin D deficiency has been defined by the Banks ofMedicine and an Endocrine Society practice guideline as alevel of serum 25-OH vitamin D less than 20 ng/mL (1,2).The Endocrine Society went on to further define vitamin Dinsufficiency as a level between 21 and 29 ng/mL (2).1. IOM (Banks of Medicine). 2010. Dietary reference intakes for calcium and D. [place]: The National Academies Press.2. Sharon MF, Adarsh MAGANA, Lisa SANDERSON, et al. Evaluation, treatment, and prevention of vitamin D deficiency: an Endocrine Society clinical practice guideline. JCEM. 2010; 96(7):1911-30. 70-Bgy-508917:08 Folate (31981) Comments: PATIENT NOT FASTINGPERFORMED BY: CB [facility] Xglott6284 Diaz RoadDublin [place] [id number] Folate (Folic Acid), Serum 12.5 ng/mL (Normal) Comments: A serum folate concentration of less than 3.1 ng/mL isconsidered to represent clinical deficiency. 52-Xkb-396249:08 VITAMIN B-12 (CYANOCOBALAMIN) Comments: PATIENT NOT FASTINGPERFORMED BY: CB [facility] Sbrhxu3336 Diaz RoadDublin [place] [id number] (85165) Vitamin B12 353 pg/mL (Normal) Range: 211-946 64-Xzg-320891:08 TSH (13206) Comments: PATIENT NOT FASTINGPERFORMED BY: CB [facility] Xybslx4447 [address] RoadDublin [place] [id number] TSH 4.350 {uIU/mL} (Normal) Range: 0.450-4.500 68-Pll-610008:08 SED RATE ERYTHROCYTE (43744) Comments: PATIENT NOT FASTINGPERFORMED BY: CB [facility] Jtrolj9731 [address] RoadDublin [place] [id number] Sedimentation Rate-Westergren 2 mm/h (Normal) Range: 0-32 68-Jrx-992898:08 RHEUMATOID FACTOR-QUANT (97013) Comments: PATIENT NOT FASTINGPERFORMED BY: CB [facility] Ubmhft8565 [address] RoadDublin [place] [id number] RA Latex Turbid. 6.7 {IU/mL} (Normal) Range: 0.0-13.9 07-Wam-501545:08 METABOLIC PANEL, Comments: PATIENT NOT FASTINGPERFORMED BY: R[facility]integrated Tisljx9694 [facility] [id number] Information: [id number] COMPREHENSIVE (05459) ALT (SGPT) 21 [iU]/L (Normal) Range: 0-32 [...] Glucose, Serum 88 mg/dL (Normal) Range: 65-99 85-Ouf-941208:08 C-REACTIVE PROTEIN (66351) Comments: PATIENT NOT FASTINGPERFORMED BY: MixifyCoArtesia General HospitalBgnhyx2270 [facility] [id number] C-Reactive Protein, Quant 6.1 mg/L (Abnormal) Range: 0.0-4.9 46-Zhe-177422:08 CBC (AUTO) (56931) Comments: PATIENT NOT FASTINGPERFORMED BY: [facility]6370 [facility] [id number] Platelets 487 {x10E3/uL} (Abnormal) Range: 150-379 RDW 13.8 % (Normal) Range: 12.3-15.4 MCHC 34.1 g/dL (Normal) Range: 31.5-35.7 MCH 30.8 pg (Normal) Range: 26.6-33.0 MCV 91 fL (Normal) Range: 79-97 Hematocrit 40.8 % (Normal) Range: 34.0-46.6 Hemoglobin 13.9 g/dL (Normal) Range: 11.1-15.9 RBC 4.51 {x10E6/uL} (Normal) Range: 3.77-5.28 WBC 7.4 {x10E3/uL} (Normal) Range: 3.4-10.8 :08 RIKA (ANTINUCLEAR ANTIBODY) Comments: PATIENT NOT FASTINGPERFORMED BY: [facility]6370 [facility] [id number] (90218) RIKA Direct Negative (Normal) 84-Emf-005497:01 METABOLIC PANEL, Comments: PATIENT WAS FASTINGPERFORMED BY: [place] 7347370 [facility] [id number] Information: [id number] COMPREHENSIVE (88211) ALT (SGPT) 21 [iU]/L (Normal) Range: 0-32 [...] mg/dL (Normal) Range: 65-99 : LIPID PANEL (64008) Comments: PATIENT WAS FASTINGPERFORMED BY: R2integratedChristian Health Care CenterArogej3269 [facility] [id number] LDL/HDL Ratio 3.1 {ratio_units} (Normal) Range: 0.0-3.2 LDL Cholesterol Calc 146 mg/dL (Abnormal) Range: 0-99 VLDL Cholesterol Josr 28 mg/dL (Normal) Range: 5-40 HDL Cholesterol 47 mg/dL (Normal) Comments: According to ATP-III Guidelines, HDL-C >59 mg/dL is considered anegative risk factor for CHD. Triglycerides 142 mg/dL (Normal) Range: 0-149 Cholesterol, Total 221 mg/dL (Abnormal) Range: 100-199 : TSH (38536) Comments: PATIENT WAS FASTINGPERFORMED BY: R2integratedChristian Health Care CenterYzygly0670 [facility] [id number] TSH 2.590 {uIU/mL} (Normal) Range: 0.450-4.500 : TSH (THYROID STIMULATING Comments: PATIENT WAS FASTINGPERFORMED BY: [facility]ifyS[facility] Hospital[address] [place] [address] [id number] HORMONE) (65144) TSH 4.510 {uIU/mL} (Abnormal) Range: 0.450-4.500 61-Mwc-171907:01 LIPID PANEL (61487) Comments: PATIENT WAS FASTINGPERFORMED BY: [facility] Ghxnuh4958 [facility] [id number] Information: ADD [id number] AND DRAW FEE 99 6676 LDL/HDL Ratio 3.1 {ratio_units} (Normal) Range: 0.0-3.2 LDL Cholesterol Calc 138 mg/dL (Abnormal) Range: 0-99 HDL Cholesterol 44 mg/dL (Normal) Comments: According to ATP-III Guidelines, HDL-C >59 mg/dL is considered anegative risk factor for CHD. VLDL Cholesterol Josr 28 mg/dL (Normal) Range: 5-40 Triglycerides 139 mg/dL (Normal) Range: 0-149 Cholesterol, Total 210 mg/dL (Abnormal) Range: 100-199 51-Gzz-659841:01 CALCIFEDIOL (75607) Comments: PATIENT WAS FASTINGPERFORMED BY: [facility] Xeqasb8441 [facility] [id number] Vitamin D, 25-Hydroxy 31.8 ng/mL (Normal) Range: 30.0-100.0 Comments: Vitamin D deficiency has been defined by the Banks ofMedicine and an Endocrine Society practice guideline as alevel of serum 25-OH vitamin D less than 20 ng/mL (1,2).The Endocrine Society went on to further define vitamin Dinsufficiency as a level between 21 and 29 ng/mL (2).1. IOM (Banks of Medicine). 2010. Dietary reference intakes for [...] Positive: >20 - 80 High Positive: >80 8-Jcc-389163:16 AT3F tAT3AI 104 % (Normal) Range: 75-130 AT3 97 % (Normal) Range: 75-135 3-Beg-782396:16 BETA2G hWVLH4D$ <9 (Normal) Range: 0-20 Comments: INFCE Result Units: GPI IgA units wOFXC4Y$ <9 (Normal) Range: 0-20 Comments: INFCE Result Units: GPI IgG units rVLRP6O$ <9 (Normal) Range: 0-20 Comments: INFCE Result Units: GPI IgM units 1-Hmp-504240:16 FACIID tFACIID Comment (Normal) Comments: NEGATIVENo mutation identified. .Comment:A point mutation ([id number]) in the factor II (prothrombin)gene is the [...] individual mutations. This assaydetects only the prothrombin F84241W mu tation and doesnot measure genetic abnormalities elsewhere in thegenome. Other thrombotic risk factors may be pursuedthrough systematic clinical laboratory analysis. Thesefactors include the R506Q (Leid en) mutation in the Factor Vgene, plasma homocysteine levels, as well as testing fordeficiencies of antithrombin III, protein C and protein S. 3-Szl-415946:16 FACVL tFACVL Comment (Normal) Comments: Result: Negative [...] in the workup for venous thrombosis include [id number] mutation in the factor II (prothrombin) gene,protein S and C deficiency, and antithromb in deficiencies.Anticardiolipin antibody and lupus anticoagulant analysismay be appropriate for certain patients, as well ashomocysteine levels. .Contact your local [facility] for information on how to orderadditional testing if desired. .Genetic counselors are available for health care* providers to discuss results at [phone] ([phone]). .Methodology:DNA analysis of the Factor V gene [...] Ph.D.Ashley Deluna M.D .Sheron Leroy, Ph.D. . 6-Mth-098625:16 HOMO 8.0 umol/L (Normal) Range: 3.2-10.7 :16 [...] 4.2-5.4 WBC 6.0 K/mm3 (Normal) Range: 4.4-11.0 2-Lcf-049828:33 COMP METABOLIC GAP 10 (Normal) Range: 5-15 [...] {uIU/mL} (Normal) Range: 0.358-3.74 :33 VIT D,25 13239 28.7 ng/mL (Abnormal) Range: 30.0-100.0 Comments: Vitamin D deficiency has been defined by the Banks ofMedicine and an Endocrine Society practice guideline as alevel of serum 25-OH vitamin D less than 20 ng/mL (1,2).The Endocrine Society went on to further define vitamin Dinsufficiency as a level between 21 and 29 ng/mL (2).1. IOM (Banks of Medicine). 2011. Dietary reference intakes for calcium and D. [place]: The National Academies Press.2. Sharon MF, Adarsh MAGANA, Lisa SANDERSON, et al. Evaluation, treatment, and prevention of vitamin D deficiency: an Endocrine Society clinical practice guideline. JCEM. 2010; 96(7): 1911-30.Performed at: [address] [id number] Director: Nuzhat Worrell MD, Phone: [phone] 2-Rfp-857844:30 CHEST WITH CONTRAST Radiology Report See Note [...] radiologist regarding this report, please call our 76Z6iidteyl line @ Dictated on 04/04/11 1546 by Mel Tan MDranscribed on 04/04/11 1638 by ITS IMPORTSign by Emre Tan MD on 04/04/11 1639 Sign by: Emre Tan MD 75-Hnl-719844:49 PRO TIME INR 1.8 (Normal) PROTIME 20.2 s (Abnormal) Range: 11.9-14.4 04-Jwa-888180:18 Prothrombin Time (PT) Comments: PERFORMED BY: [facility]6370 [facility] [id number] Prothrombin Time 25.5 {sec} (Abnormal) Range: 9.1-12.0 [...] be affected. Range: 0.358-3.74 :44 VIT D,25 87701 16.7 ng/mL (Abnormal) Range: 32.0-100.0 Comments: Effective January 22, 2011 Vitamin D, 25-Hydroxy reference intervals will be changing to 30-100. .Recent studies consider the lower li jay of 32.0 ng/mL to be athreshold for optimal health.Luis HERNADEZ. J Nutr. 2004;135(2):317-22.Performed at: CB - [facility] Ibccjx6322 [place], [place] [id number] Director: Nuzhat Worrell MD, Phone: [phone] TSH 1.72 {uIU/mL} (Normal) Range: 0.358-3.74 93-Fdn-959146:21 BRAIN/HEAD WITHOUT CONTRAST Radiology Report See Note [...] 05/22/10 1650 Sign by: PITA CONTRERAS MD 36-Ufv-497659:19 SINUS/FACIAL BONE Radiology Report See Note (Normal) [...] Comments: GLU,2HPPG 75gm GLUC PPG GLUP from 0714:G05542L. :23 COMPLETE UA BACTERIA 0 SEEN {/hpf} [...] CHOL 208 mg/dL (Abnormal) Comments: <200 mg/dL Dtdsudqcp223-105 mg/dL Borderline>240 mg/dL High Risk :23 TSH 2.35 {uIU/mL} (Normal) Range: 0.358-3.74 73-Izy-046745:19 CULTURE, URINE URINE CULTURE See Note {CFU/mL} (Normal) Comments: COLONY COUNT 25,000-50,000 ORGANISM 1: MIXED GRAM POSITIVE ORGANISMS 91-Ywv-557909:07 Rapid Flu (57214 x 2) INFLUENZA IMMUNOASSY DIRECT OPTICAL OBSERV neg (Normal) :07 Rapid Strep Test, Office (73484) Rapid Strep Test, Office Negative (Normal) 97-Ipc-584741:46 CULTURE, URINE URINE CULTURE See Note (Normal) Comments: Predominant being a gram positive skip, possibleLactobacillus species. COLONY COUNT 80,000- 100,000 ORGANISM 1: MIXED GRAM POSITIVE ORGANISMS 14-Cpa-818776:13 Urinalysis, Office (63454) UA - BILIRUBIN Negative (Normal) UA - [...] :17 TSH 1.78 {uIU/mL} (Normal) Range: 0.358-3.74 76-Kpu-665839:59 ABDOMEN WITH CONTRAST Radiology Report See Note (Normal) Comments: Exam Number: [id number] CT OF THE ABDOMEN AND PELVIS WITH [...] and splenectomy. Reported By: PITA ALBERTS M.D. 85-Jmi-515913:59 PELVIS WITH CONTRAST Radiology Report See Note (Normal) Comments: Exam Number: [id number] CT OF THE ABDOMEN AND PELVIS WITH [...] and splenectomy. Reported By: PITA ALBERTS M.D. 76-Zgn-30613:36 Upper Respiratory Culture Comments: Clinical Information: SRC:JACE YANES [id number] PERFORMED BY: [facility]6370 [facility] [id number] Result 1 RRF (Normal) Comments: Routine respiratory ed Upper Respiratory Culture Final report (Normal) 22-Jan-2007 Antistreptolysin O Ab 37.7 {IU/mL} Comments: PATIENT NOT FASTINGPERFORMED BY: [facility]6370 [facility] [id number] 9:26 (Normal) Range: 0.0-200.0 39-Zbr-93953:26 Comp. Metabolic Panel (14) Comments: PATIENT NOT FASTINGPERFORMED BY: Z[facility]ila6370 [facility] [id number] A/G Ratio 1.2 (Normal) Range: 1.1-2.5 Albumin, [...] (ANTINUCLEAR ANTIBODY) Comments: PATIENT NOT FASTINGPERFORMED BY: [facility]6370 [facility] [id number] (92180) Antinuclear Antibodies Direct 55 AU/mL (Normal) Range: 0-99 Comments: Negative <100 Equivocal 100 - 120 Positive >120 :26 Sed Rate Erythrocyte (28325) Comments: PATIENT NOT FASTINGPERFORMED BY: [facility]6370 [facility] [id number] Sedimentation Rate-Westergren 6 mm/h (Normal) Range: 0-20 :26 CBC, Platelets & Auto Diff Comments: PATIENT NOT FASTINGPERFORMED BY: R2integratedJose [place]ille 9309770 [facility] [id number] (08836) Baso (Absolute) 0.1 {x10E3/uL} (Normal) Range: 0.0-0.2 [...] HTN/CAD Red Flags Indication: HTN (hypertension), benign Type II diabetes mellitus, well controlled : Follow up in 3 months Indication: Type II diabetes mellitus, well controlled Type II diabetes mellitus, well controlled : Eprescribed prescriptions (G8553) Indication: Type II diabetes mellitus, well controlled HTN (hypertension), benign : Follow up in [...] Ischemic stroke of frontal lobe : Reviewed Special Education Para Professional Letter Indication: Ischemic stroke of frontal lobe [...] Indication: Sleep apnea Cough, persistent : Reviewed Special Education Para Professional Letter- dr overton /alexander [place]-no evid of gerd /cebul hh/ slight gerd Indication: Cough, persistent Polyp of colon, adenomatous : Reviewed Special Education Para Professional Letter- Tessie- rescope in 3yrs Indication: Polyp [...] other allergen MYOCARDIAL INFARCTION, NOS : Reviewed Special Education Para Professional Letter Indication: MYOCARDIAL INFARCTION, NOS MYOCARDIAL INFARCTION, [...] Symptoms Indication: Acute sinusitis, unspecified Planned Observations URINE KATHY CULTURE-IDENTIFICATN (04160)Indication: Urinary frequency On: Request CALCIFIDIOL (65656) VIT D 25Indication: Vitamin D deficiency, unspecified On: Request T4, FREE (THYROXINE) (33634)Indication: Hypothyroidism, unspecified On: Request T3, FREE (TRIDOTHYRONINE) (91391)Indication: Hypothyroidism, unspecified On: : Request URINALYSIS, W/ MICRO (49253)Indication: Type II diabetes mellitus, well controlled On: :18 Request MICROALBUMIN: CREATININE RATIO (26664) AND (84388)Indication: Type II diabetes mellitus, well controlled On: :18 Request METABOLIC PANEL, COMPREHENSIVE (79730)Indication: Type II diabetes mellitus, well controlled On: :18 Request LIPOPROTEIN, BLD, BY NMR (33882)Indication: Type II diabetes mellitus, well controlled On: :18 Request CBC W/AUTO DIFF WBC (53268)Indication: Type II diabetes mellitus, well controlled On: :18 Request TSH (00088)Indication: Hypothyroidism, unspecified On: :18 Request TSH (16049)Indication: Hypothyroidism, unspecified On: :02 Request METABOLIC PANEL, COMPREHENSIVE (11415)Indication: Abnormal glucose tolerance test (Renamed from Abnormal glucose tolerance test (GTT)) On: : Request CBC W/AUTO DIFF WBC (69702)Indication: Abnormal glucose tolerance test (Renamed from Abnormal glucose tolerance test (GTT)) On: : Request LIPOPROTEIN, BLD, BY NMR (25701)Indication: Hypercholesteremia On: : Request CALCIFIDIOL (70304) VIT D 25Indication: Vitamin D deficiency, unspecified On: : Request Rapid Flu (19241 x 2)Indication: Fever and chills On: 68-Dfc-681572:22 Request EB ANTIBODY NUCLR ANTIGN ([id number])Indication: Lymphadenopathy, cervical On: 75-Ulr-000625:29 Request D-Dimer ([id number])Indication: History of DVT (deep vein thrombosis) On: 01-Cae-305004:06 Request METABOLIC PANEL, COMPREHENSIVE ([id number])Indication: Hypercholesteremia On: :42 Request CBC W/AUTO DIFF WBC ([id number])Indication: Hypercholesteremia On: :42 Request LIPID PANEL ([id number])Indication: Hypercholesteremia On: :42 Request TSH ([id number])Indication: Hypothyroidism, unspecified On: :42 Request CALCIFIDIOL (35508) VIT D 25Indication: Vitamin D deficiency, unspecified On: :41 Request LIPID PANEL ([id number])Indication: Hypercholesteremia On: :35 Request Comments: do in 4months TSH ([id number])Indication: Hypothyroidism, unspecified On: 04-Mar-20148:30 Request Anti-TPO Antibody ([id number])Indication: Hypothyroidism, unspecified On: 30-Vbt-20950:25 Request T4, FREE (THYROXINE) ([id number])Indication: Hypothyroidism, unspecified On: 13-Pms-71654:25 Request T3, FREE (TRIDOTHYRONINE) ([id number])Indication: Hypothyroidism, unspecified On: 14-Jul-2012 Request TSH ([id number])Indication: Hypothyroidism, unspecified On: 14-Jul-2012 Request D-Dimer ([id number])Indication: SOB On: 28-For-343449:25 Request Antiphospholipid atb (69449)Indication: Pulmonary embolism On: 05-Jul-20118:12 Request Comments: IgM and igG, IgA anticardiolipin antibody i also need the Beta 2 glycoprotein anticardiolipin antibody -IgG, and IgM Protein S Profile ([id number])Indication: Pulmonary embolism On: :05 Request Protein C Profile ([id number])Indication: Pulmonary embolism On: :05 Request Homocysteine, Plasma (42503)Indication: Pulmonary embolism On: :05 Request ANTICOAG ANTTHROMB III & ASSAY ([id number])Indication: Pulmonary embolism On: 05-Jul-20118:05 Request ANTITHROMBIN III ACTIVTY ([id number])Indication: Pulmonary embolism On: 05-Jul-20118:05 Request CLOTTING FACTOR II ([id number])Indication: Pulmonary embolism On: 05-Jul-20118:05 Request Factor V Leiden ([id number])Indication: Pulmonary embolism On: 05-Jul-20118:05 Request PT (Prothrobim Time) ([id number])Indication: Pulmonary embolism On: 87-Vcr-156134:02 Request PT (Prothrobim Time) ([id number])Indication: Pulmonary embolism On: 79-Ddg-21191:40 Request Comments: standing order TSH ([id number])Indication: Depression with anxiety On: 8-Myl-898208:52 Request LIPID PANEL ([id number])Indication: Hypercholesteremia On: 8-Gql-188032:52 Request VITAMIN B-12 (CYANOCOBALAMIN) ([id number])Indication: Vitamin B12 deficiency (non anemic) On: 5-Hsl-855750:51 Request CALCIFIDIOL ([id number]) VIT D 25Indication: Vitamin D deficiency, unspecified On: :48 Request PT (Prothrobim Time) ([id number])Indication: Pulmonary embolism On: :48 Request KATHY CULTURE-OTHER ([id number])Indication: Staphylococcal septicemia, unspecified On: :46 Request Comments: nares -both KATHY CULTURE-BLOOD ([id number])Indication: Fever, unspecified On: :42 Request PT (Prothrobim Time) ([id number])Indication: Pulmonary embolism On: :28 Request CULTURE, SPUTUM ([id number])Indication: Wheezing On: :34 Request PT (Prothrobim Time) ([id number])Indication: Pulmonary embolism On: 71-Usc-586317:29 Request PT (Prothrobim Time) ([id number])Indication: Pulmonary embolism On: :57 Request Comments: inr CALCIFIDIOL ([id number]) VIT D 25Indication: Fatigue On: :32 Request Folate ([id number])Indication: Fatigue On: :32 Request VITAMIN B-12 (CYANOCOBALAMIN) ([id number])Indication: Fatigue On: :32 Request TSH ([id number])Indication: Fatigue On: :32 Request SED RATE ERYTHROCYTE ([id number])Indication: Fatigue On: :32 Request RHEUMATOID FACTOR-QUANT ([id number])Indication: Fatigue On: :32 Request METABOLIC PANEL, COMPREHENSIVE ([id number])Indication: Fatigue On: :32 Request C-REACTIVE PROTEIN ([id number])Indication: Fatigue On: :32 Request CBC (AUTO) ([id number])Indication: Fatigue On: :32 Request RIKA (ANTINUCLEAR ANTIBODY) ([id number])Indication: Fatigue On: :32 Request LIPID PANEL ([id number])Indication: Hypercholesteremia On: 24-Nov-2010 Request TSH ([id number])Indication: Hypothyroidism, unspecified On: 51-Vwr-42805:33 Request KATHY CULTURE-OTHER ([id number])Indication: Upper respiratory infection On: 86-Tou-828812:32 Request Rapid Strep Test, Office ([id number])Indication: Upper respiratory infection On: 45-Exh-743351:32 Request LIPID PANEL ([id number])Indication: Hypercholesteremia On: 2-Fko-542520:36 Request TSH ([id number])Indication: Hypothyroidism, unspecified On: 8-Jjx-392493:35 Request LIPID PANEL ([id number])Indication: Hypercholesteremia On: 88-Yce-141286:21 Request Comments: do in 4 months Glucose, PP/2 Hour (61081)Indication: Family history of diabetes mellitus On: 63-Rla-273012:18 Request URINALYSIS, W/ MICRO ([id number])Indication: Other abnormal finding of urine On: :02 Request TSH ([id number])Indication: Hypothyroidism, unspecified On: :55 Request LIPID PANEL ([id number])Indication: Hypercholesteremia On: :55 Request URINE KATHY CULTURE-JASON COL COUNT ([id number])Indication: Other abnormal finding of urine On: 54-Yrm-939059:21 Request Urinalysis, Office ([id number])Indication: Other abnormal finding of urine On: 30-Cuo-201642:20 Request URINE KATHY CULTURE-JASON COL COUNT ([id number])Indication: Dysuria On: 10-Nwo-459754:35 Request LIPID PANEL ([id number])Indication: Hypercholesteremia On: 01-Cph-935126:28 Request Comments: do in 6 months TSH ([id number])Indication: Hypothyroidism, unspecified On: 10-Dec-20088:51 Request LIPID PANEL ([id number])Indication: Hypothyroidism, unspecified On: 10-Dec-20088:51 Request LIPID PANEL ([id number])Indication: Hyperglyceridemia On: 62-Ptw-019395:26 Request Comments: DO IN 4-6 MONTHS KATHY CULTURE-OTHER ([id number])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) On: :24 Request SKIN TEST INTRADERMAL TB ([id number])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) On: :19 Request Comments: given 0.1 in left forearm LOT#[id number] exp.07/10-aw Metabolic Panel, Comprehensive ([id number])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) On: :19 Request ANTISTREPTOLYSIN O-SCREN ([id number])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) On: :18 Request URINALYSIS ([id number])Indication: Dysuria On: :51 Request Planned Encounters Medical; 3 Month FU - On: 16-May-2018 13:30 [facility] Sho Lozano DO, DO, Kathleen Planned Procedures Doppler Ultrasound OtherBy: Blake On: 02-Oct-2017 Sho Orona DO, DO, Kathleen Comments: lower extremity CXR PA & LAT ([id number])By: Blake DAMON, On: 02-Oct-2017 Intent Sho Carvajal DO Spirometry ([id number])By: Blake DAMON, On: 02-Oct-2017 Intent hSo Carvajal DO Comments: normal with text book curves on restrictions ELECTROCARDIOGRAM, COMPLETE (ECG) On: 22-Mar-2017 Intent ([id number])By: Sho Lozano DO Comments: nsr no acute chg Sho Lozano DO CT SCAN, ABDOMEN W/O CONTRAST On: 22-Mar-2017 Intent ([id number])By: Sho Lozano DO, DO, Kathleen Wax CurettesBy: Sho Lozano DO On: 20-Nov-2016 Intent Sho Lozano DO Ear Irrigation ([id number])By: Blake On: 20-Nov-2016 Sho Orona DO, DO, Kathleen Comments: Ear Irrigation performed on:bilateralAmount/color removed cerumen: brown, moderate amountOUtcome:clear and tolerated Spirometry ([id number])By: Blake DAMON, On: 20-Nov-2016 Intent Sho Carvajal DO Comments: normal Solu- Medrol Injection, 125mg On: 20-Nov-2016 Intent ([id number])By: Sho Lozano DO Comments: lot [id number] mgright gmIMas, heel turner Sho Lozano DO Aerosol Treatment ([id number])By: Blake On: 20-Nov-2016 Sho Orona DO, DO, Kathleen Comments: no wheeze more ae CT SCAN OF NECK TISSUE WITH On: 16-Dec-2015 Intent CONTRAST ([id number])By: Sho Lozano DO, DO, Kathleen CT - Chest (IV Contrast Needed)By: On: 27-Sep-2015 Intent Elida Horton CNP Comments: STAT Venous Doppler - RightBy: Clifford On: 27-Sep-2015 Intent Elida DIAS Spirometry ([id number])By: Blake DAMON, On: 12-Apr-2015 Intent Sho Carvajal DO Comments: looks good HOME SLEEP STUDY TEST (HST) WITH On: 12-Apr-2015 Intent TYPE II PORTABLE MONITOR, UNATTENDED; MINIMUM OF 7 CHANNELS: EEG, EOG, EMG, ECG/HEART RATE, AIRFLOW, RESPIRATORY EFFORT AND OXYGEN SATURATION ([id number])By: Sho Lozano DO, DO, Kathleen ATTENDED SLEEP STUDY ([id number])By: On: 02-Dec-2014 Intent Sho Lozano DO, DO, Sho Aerosol Treatment ([id number])By: Blake On: 16-Nov-2014 Sho Orona DO, DO, Kathleen Comments: clear afdter treatmenet Doppler Ultrasound OtherBy: Blake On: 16-Nov-2014 Sho Orona DO, DO, Kathleen BILATERAL MAMMOGRAMS ([id number])By: On: 30-Jun-2014 Intent Sho Lozano DO, DO, Sho Aerosol Treatment ([id number])By: Blake On: 12-Mar-2014 Sho Orona DO, DO, Kathleen Comments: more a/e no wheeze ELECTROCARDIOGRAM, COMPLETE (ECG) On: 18-Dec-2013 Intent ([id number])By: Elida Horton CNP MAMMOGRAM, SCREENING, BOTH BREASTS On: 13-May-2013 Intent ([id number])By: Sho Lozano DO, DO, Kathleen Eprescribed prescriptions On: 30-May-2012 Intent ([id number])By: Sho Lozano DO, DO, Kathleen Eprescribed prescriptions On: 14-May-2012 Intent (G8553)By: Carmelina Newman LPN Spirometry ([id number])By: Blake DAMON, On: 18-Jan-2012 Intent Sho Carvajal DO Comments: not bad-- some technique bad related results EKG ([id number])By: Sho Lozano DO On: 18-Jan-2012 Intent Sho Lozano DO Comments: nsr no acute chg Aerosol Treatment ([id number])By: Clifford On: 03-Dec-2011 Intent Elida DIAS Solu -Medrol Injection, 125 mg On: 12-Nov-2011 Intent ([id number])By: Elida Horton CNP Comments: Lot #[id number]-r hip, IMDose- prefilled syringegiven by:MARIAN Almazan signed Eprescribed prescriptions On: 12-Nov-2011 Intent ([id number])By: Roxie Vázquez LPN Pulse Oximetry ([id number])By: Blake On: 04-Apr-2011 Sho Orona DO, DO, Kathleen Comments: 95% CT - Chest: pe protocolBy: Blake On: 04-Apr-2011 Sho Orona DO, DO, Kathleen EKG ([id number])By: Sho Lozano DO On: 04-Apr-2011 Intent Sho Lozano DO Comments: NSR -- SMALL CONDUCTION DELAY IN INFERIOR LEADS -- WILL COMPARE- SEEMS TO BE NEW VS LEAd placemnt CT - Sinuses CompleteBy: Blake DAMON, On: 07-Feb-2011 Intent Sho Carvajal DO Radiology - Chest- PA and LatBy: On: 02-Feb-2011 Intent Sho Lozano DO, DO, Kathleen Pulse Oximetry ([id number])By: Blake On: 02-Feb-2011 Intent Sho DAMON DO, Kathleen Aerosol Treatment ([id number])By: Blake On: 02-Feb-2011 Intent Sho DAMON DO, Kathleen Pulse Oximetry ([id number])By: Clifford On: 29-Jan-2011 Intent Elida DIAS Aerosol Treatment ([id number])By: Clifford On: 29-Jan-2011 Intent ARUNElida E Eprescribed prescriptions On: 29-Jan-2011 Intent ([id number])By: Elida Horton CNP MYOCARDIAL INFARCTION EDUCATIONBy: On: 11-Jan-2011 Intent Sho Lozano DO, DO, Kathleen FLU VAC, SPLIT, >3 YEARS, INTRAMUSC On: 05-Jan-2011 Intent ([id number])By: Sho Lozano DO Comments: Lot #[id number]/30/12Site-left deltoidgiven by: OSCAR Kaur DO, Kathleen B 12 Injection, 1000 mcg ([id number])By: On: 05-Jan-2011 Intent Sho Lozano DO, DO, Comments: Lot #[id number]/14Site-right deltoidDose- 1 mlgiven by: OSCAR Kaur IMMUNIZ ADMNIN, 1 VAC, SNGL/COMBO On: 05-Jan-2011 Intent ([id number])By: Sho Lozano DO, DO, Kathleen Eprescribed prescriptions On: 05-Oct-2010 Intent (G8553)By: Sho Lozano DO, DO, Kathleen Solu -Medrol Injection, 125 mg On: 10-Jul-2010 Intent ([id number])By: Clifford DIAS Jamee EKG ([id number])By: Sho Lozano DO On: 15-Jun-2010 Intent Sho [...] Intent (J2930)By: Jazmin Sierra DO Comments: Lot #[id number]/1/12Site-left hipDose- 125 mggiven by:[facility] Solu- Medrol Injection, 125mg On: 01-Nov-2009 Intent ([id number])By: Sho Lozano DO, DO, Kathleen IMMUNIZ ADMNIN, 1 VAC, SNGL/COMBO On: 29-Jul-2009 Intent ([id number])By: Sho Lozano DO, DO, Kathleen EKG (61283)By: Sho Lozano DO On: 29-Jul-2009 Intent Sho Lozano DO Comments: nsr no acute chgs PNEUM VAC ADLT/IMUMNOSPR, SBC/INTRM On: 29-Jul-2009 Intent ([id number])By: Sho Lozano DO Comments: Lot:[id number]:26Wkz79Wfut:0.5Route:IMSite:Left Deltoid Given by: ALY Das DO, Kathleen TDAP VACCINE >7 IM ([id number])By: On: 10-Dec-2008 Intent Sho Lozano DO, DO, Comments: Lot #[id number]-ynps deltoidgiven by:[facility] Sho Solu -Medrol Injection, 125 mg On: 09-Aug-2008 Intent (J2930)By: Jazmin Sierra DO Comments: lot # [id number]-WOTVSKlcent-MGcfdp- 2ML tolerated well Ashleigh LU CT - Abdomen & Pelvis (IV Contrast On: 29-Oct-2007 Intent Needed)By: Sho Lozano DO, DO, Kathleen SPECIMEN HNDLNG/TRNSPRT, OFFC > LAB On: 22-Jan-2007 Intent ([id number])By: Elida Horton CNP Rocephon Injection, 2 Gm On: 22-Jan-2007 Intent ([id number])By: Rebekah Tian LPN Comments: given by Dr. Lozano lot [id number] exp 05-10, IV flushed with 0.5cc before and after iv med with 0.9% sodium chloride. IV Infusion (60379)By: Asmita, On: 22-Jan-2007 Intent Rebekah MOORE IV Infusion ([id number])By: Asmita, On: 21-Jan-2007 Intent Rebekah MOORE Comments: 2g given trough IV by Constance Fields lot [id number] 3 iv flushed with 0.9% sodum chloride 0.5cc before and after. Venous Doppler - RightBy: Clifford On: 20-Jan-2007 Intent Elida DIAS Comments: Rt lower ext doppler am SOLOMON INFUSION, NORMAL SALINE SOLUTION , On: 20-Jan-2007 Intent 250 CC ([id number])By: Elida Horton CNP THER/PROPH/DIAG IV INF, INIT On: 20-Jan-2007 Intent ([id number])By: Elida Horton CNP Comments: #22 gauge needle placed to right forearm per erussell without difficulty Rocephin Injection, 2 Gram On: 20-Jan-2007 Intent (J0696)By: Elida Horton CNP Comments: Lot # [id number] exp 05-10 per erussell Toradol Injection, 30 mg On: 13-Dec-2006 Intent (J1885)By: Sho Lozano DO Comments: given in left hip, 1cc, lot#[id number], exp.01.09, [place] Sho Lozano DO Planned Medications [...] DO, DO, Kathleen Instructions Name Dates Details Type II diabetes mellitus, well controlled : How to access health information online Indication: Type II diabetes mellitus, well controlled Type II diabetes mellitus, well controlled : How to access health information online - Detail Indication: Type II diabetes mellitus, well controlled Type II diabetes mellitus, well controlled : Patient Instructions Indication: Type II diabetes mellitus, well controlled Abnormal glucose tolerance test (Renamed from Abnormal [...] Rash : Patient Instructions Indication: Rash Encounters Office Visit On: 14-Feb-2018 13:22 Encounter Reason: Follow up for chronic medical issues - The patient feels well with minor complaints (still having cough from a couple months ago), has decreased energy level and is sleeping well. Patient has been compl End: 14-Feb-2018 15:58 iant with instructions. Current medication use: no side effects (lexapro weight gain? want to try something else). Patient sleeps 7 hours per night. Impact of disease: no emotional impact. Nutrition: ba lanced diet and supplemental vitamins. The medical issues the patient is following up for include blood sugar issues and high blood pressure.Encounter Diagnosis: Influenza vaccination declined (Renamed from Refused influenza vaccine), Urinary frequency, HTN (hypertension), benign, Hypothyroidism, unspecified, Depression with anxiety, Ischemic stroke of frontal lobe, PFO (patent foramen ovale), Severe obesity (BMI >= 40), Non-smoker, Type II diabetes mellitus, well controlled, Vitamin D deficiency, unspecified, ETD (Eustachian tube dysfunction), bilateral, Benign paroxysmal positional vertigo (386.11) [facility] Annotation/Addendum On: 09-Oct-2017 8:47 [...] noticed weakness in left arm lateleywith litle celio ss periodically- comes and goes- can wake [...] lower leg swelling was placed on cipro Nov 14,15,16. The swelling of rt leg and [...] lower leg swelling was placed on cipro Nov 14,15,16. The swelling of rt leg and [...]
--- OUTSIDE RECORDS SUMMARY | 2018-05-28 06:44 | XMS RPT_ITS ---
:1970 Author Organization OHIP Support Name Relationship Address Phone SHARI TYLER Unavailable [address] + [place] [address] SHADE, RON Unavailable [address] + [place] [address] SHADE SHELLI Unavailable [address] + [place] [address] SHARI TYLER Unavailable [address] + [place] [address] SHARI TYLER Unavailable [address] + [place] [address] SHADE, RON Unavailable [address] + [place] [address] SHADE SHELLI Unavailable [address] + [place] [address] SHARI TYLER Unavailable [address] + [place] [address] SHADE, RON Unavailable [address] + [place] [address] SHADE SHELLI Unavailable [address] + [place] [address] SHARI TYLER Unavailable [address] + [place] [address] SHADE, RON Unavailable [address] + [place] [address] SHADE SHELLI Unavailable [address] + [place] [address] SHARI TYLER Unavailable [address] + [place] [address] SHADE, RON Unavailable [address] + [place] [address] SHADE SHELLI Unavailable [address] + [place] [address] SHARI TYLER Unavailable [address] + [place] [address] Care Team Providers Name Role Phone LOLI HAWKINS Attending Unavailable CAMDR. SHO MARTIN DO Primary Care Unavailable DERIAN JIMENEZ Attending Unavailable CAM DODR. MCCRACKEN Primary Care Unavailable JEREMIE MASON Attending Unavailable MARLON, JEREMIE Saray Referring Unavailable LUKAS KAPLAN Attending Unavailable MARLON, JEREMIE L Referring Unavailable MARLON, JEREMIE Saray Attending Unavailable MARLON, JEREMIE L Attending Unavailable ALEKSANDAR WATT (PA) Referring Unavailable ATHALEKSANDAR Dunn (PA) Referring Unavailable Cam DO, Sho Attending Unavailable Cam DO, Sho Referring Unavailable Cam DO, Sho Consulting Unavailable Cam, Sho Primary Care Unavailable Ungur, Remus Attending Unavailable Cam, Sho Attending Unavailable Cam, Sho Referring Unavailable Cam, Sho Primary Care Unavailable Marlon, Jeremie Attending Unavailable Marlon, Jeremie Referring Unavailable CamSho Primary Care Unavailable Cam, Sho Primary Care Unavailable Ungur, Remus Attending Unavailable Eric John Attending Unavailable Eric John Referring Unavailable Cam, Sho Primary Care Unavailable PROBLEMS PROBLEMS DATE TYPE CONDITION / CODE ATTENDING STATUS SOURCE 01/09/2018 Active Acute pharyngitis, NA Active [place] unspecified / Clinic Main J02.9(ICD-10) [place] Repository 01/09/2018 Active Cough / R05(ICD-10) NA Active [facility] Repository 11/11/2017 Unknown S80.00XA - Contusion Ungur, Remus Active [place] of unspecified knee, Community initial encounter / Hospital S80.00XA(ICD-10) Repository 09/30/2017 Active Postmenopausal NA Active [place] bleeding / Clinic Main N95.0(ICD-10) [facility] Repository 09/30/2017 Active Pelvic and perineal NA Active [place] pain / R10.2(ICD-10) [facility] Repository PROCEDURES PROCEDURES No Procedure Records FoundRESULTS RESULTS EMERGENCY DEPARTMENT Observed: 03/26/2018 Status: F Source: [place] SUMMARY 10:03 AM [facility] REPOSITORY [facility] Medical Records Department [address] [place] [address] Emergency Department Summary 03/26/18 1000 MR#: [id number] Acct: [id number] Name: MARIAELENA FORMAN Rep #: [id number] : 1970 47 From: [place] Chisholm DO PCP: Sho Lozano DO Status: REG ER - ER Visit Summary Date of Service: 03/26/18 Chief Complaint: [Laceration to right lateral ankle] History of Present Illness: The patient is a 47 F [presents the emergency department complaining of a laceration to her right lateral ankle that occurred while shaving this morning. Patient states that she has some varicosities and when she cut herself she can get the bleeding to stop. Patient is on aspirin and Plavix. She has prior history of PE. Patient unsure of her last tetanus.] Physical Examination: [HEENT-PERRLA, EOMI. Cranial nerves II through XII grossly intact. TMs clear. Mucous membranes moist. No adenopathy. Cardiovascular-regular rate and rhythm without murmur or ectopy Lungs-clear to auscultation, chest wall stable without crepitus or subcu emphysema Abdomen-normoactive bowel sounds, soft, nontender, no rebound or rigidity, no peritoneal signs. Extremities-intact 4, normal range of motion, normal pulses. Right lateral ankle-there is a 2 mm linear/superficial laceration over a superficial varicosity that continues to ooze dark blood despite pressure.] Test Results: [None indicated] Emergency Department Course and Treatment: [Using 1% lidocaine with epinephrine I injected 1.5 cc in the area of the bleeding. I continue to hold pressure. I used silver nitrate cautery to cauterize the bleeding area. The area was observed for about 15 minutes and she had no further bleeding. Clean dressing was applied.] Treatment Plan: [Should the bleeding continue patient hold pressure if the bleeding does not stop to return to the emergency department.] Disposition: [Discharged home in stable condition] Impression: [Laceration right ankle with silver nitrate cautery] This note was generated with Simperium dictation software. It may contain incorrect words, spelling, and punctuation that were not noted in review of the chart prior to signing ED Disposition - Plan for ED Patient: Chief Complaint: Laceration Referrals: Sho Lozano DO [Primary Care Provider] - What to do if you have Problems For any increased pain, shortness of breath, bleeding, nausea or vomiting, chest pain, or any unexpected problems, contact your Primary Care Provider. Call [facility] ([phone]) or report to the closest Emergency Room. Call 911 if necessary. 03/26/181002 <Electronically signed by Ind[place] Chisholm DO> Date Brenda Phan DO Cosigner Signature (If Indicated): Date CC: Sho Lozano DO DISCHARGE INSTRUCTION Observed: 03/26/2018 Status: F Source: [place] 10:03 AM [facility] REPOSITORY [facility] Medical Records Department [address] [place] [address] Discharge Instruction 03/26/181002 MR#: [id number] Acct: [id number] Name: MARIAELENA FORMAN Rep #: [id number] : 1970 47 From: [place] Chisholm DO PCP: Sho Lozano DO Status: REG ER ED Disposition - Plan for ED Patient: Chief Complaint: Laceration Instructions: ED Laceration Small Superf No Sutr Referrals: Sho Lozano DO [Primary Care Provider] - As Needed What to do if you have Problems For any increased pain, shortness of breath, bleeding, nausea or vomiting, chest pain, or any unexpected problems, contact your Primary Care Provider. Call [facility] ([phone]) or report to the closest Emergency Room. Call 911 if necessary. 03/26/18 1003 <Electronically signed by Indio Chisholm DO> Date Brenda Phan DO Cosigner Signature (If Indicated): Date CC: Sho Lozano DO PROGRESS Observed: 01/09/2018 Status: COMPLETED Source: [place] 11:49 AM [facility] REPOSITORY HNO ID: [id number] Author: Aleksandar Castelan) John Service: (none) Author Type: Physician Duct Layer Helper Type: Progress Notes Filed: 01/09/2018 11:52 AM Note Text: Subjective HPI Patient presents with the chief complaint of cough and sore throat. She she's had a sore throat off and on for the past 3 weeks. Her daughter was diagnosed with mono about 3 weeks ago as well. She herself had it as a child. Patient is status post splenectomy as a child as well due to Hodgkin's lymphoma. She states the cough started about 3 days ago. She is coughing up some green and also little bit of blood when she coughed. She denies any vomiting or diarrhea. She denies chest pain or shortness of breath. She hasn't had to use her inhaler today. She does have a history of asthma. She has felt feverish and chilled at home. No temperature taken. Review of Systems Constitutional: Positive for chills and fever. HENT: Positive for congestion and sore throat. Eyes: Negative. Respiratory: Positive for cough. Negative for sputum production, shortness of breath and wheezing. Cardiovascular: Negative. Negative for chest pain. Gastrointestinal: Negative. Genitourinary: Negative. Skin: Negative. Negative for itching and rash. All other systems reviewed and are negative. PAST MEDICAL HISTORY Diagnosis Date - Allergic rhinitis I'm allergic to everything. Dr. Overton tested, allergy shots long time, stopped 4-5 years ago. - Asthma Exercise induced diagnosed as adult, Rx ProAir. Symbicort added within last 2-4 years. - CVA (cerebral vascular accident) ([facility]) 07/26/2016 Right frontal lobe-posterior - Hodgkin's disease, unspecified type 1978 XRT (cobalt source) mantle, and chemoRx. - NSTEMI (non-ST elevated myocardial infarction) ([facility]) 2010 Patient denies. Attributed to PFO confirmed by [facility]. - KHUSHBU on CPAP AutoPAP. - PFO (patent foramen ovale) Confirmed by [facility]. - PMH - PAST MEDICAL HISTORY OF 10/05 adhesions - Pulmonary embolism ([facility]) 2010 Current Outpatient Prescriptions: codeine-guaiFENesin (GUAIFENESIN AC) 10-100 mg/5 mL syrup Take 5 mL by mouth four times daily as needed for up to 7 days. Disp: 100 mL Rfl: 0 montelukast (SINGULAIR) 10 mg tablet Take 1 tablet by mouth daily at bedtime. Disp: 30 tablet Rfl: 1 oxyCODONE-acetaminophen (PERCOCET) 5-325 mg tablet Disp: Rfl: 0 medroxyPROGESTERone (PROVERA) 10 mg tablet Take 1 tablet by mouth once daily. 10 days every other month as needed to start menses Disp: 10 tablet Rfl: 6 clopidogrel (PLAVIX) 75 mg tablet Take 75 mg by mouth once daily. Disp: Rfl: 3 escitalopram oxalate (LEXAPRO) 10 mg tablet Take 10 mg by mouth once daily. Disp: Rfl: 3 SYNTHROID 125 mcg tablet Take 125 mcg by mouth once daily. Disp: Rfl: 7 budesonide-formoterol (SYMBICORT) 160-4.5 mcg/actuation inhaler Inhale 2 Puffs as instructed twice daily. Disp: 1 Inhaler Rfl: 5 albuterol HFA (PROAIR HFA) 90 mcg/actuation inhaler Inhale 2 Puffs as instructed every 6 hours as needed. Disp: 1 Inhaler Rfl: 3 aspirin, enteric coated (ASPIRIN, ENTERIC COATED) 81 mg EC tablet Take 81 mg by mouth once daily. Disp: Rfl: loratadine-pseudoephedrine 24hr 10-240 mg (CLARITIN-D 24 HOUR) 10-240 mg Tb24 Take 1 tablet by mouth once daily as needed. Disp: Rfl: OTC PRODUCT Vitamin D twice weekly. Patient unsure of dose. Disp: Rfl: 0 OTC PRODUCT Vitamin B12 once daily. Patient unsure of dose. Disp: Rfl: 0 No current facility-administered medications for this visit. PAST SURGICAL HISTORY Procedure Laterality Date - APPENDECTOMY 1992 - COLONOSCOPY W/BX 05-19-15 - EGD W/O [facility] SPECIMEN W/BX 05-19-15 - HYSTEROSCOPY, SURGICAL; WITH SAMPLI 10/31/2017 Hysteroscopy w/ polyp resection w/ Symphion - L'SCOPE DX W/WO BRUSHINGS/WASHINGS 1987 Laparoscopy - PAST SURGICAL HISTORY OF lumpectomy x 2 - PAST SURGICAL HISTORY OF 1978 Staging splenectomy with Hodgkin's Dx. - PAST SURGICAL HISTORY OF 10/05 adhesion surgery - REPAIR INCIS HERNIA W MESH 02-09-08 - RIGHT HEART CATH 01/09/11 FAMILY HISTORY Problem Relation Age of Onset - Breast Cancer Mother - Skin Cancer Mother - other (parkinson disease) Mother - Diabetes Maternal Aunt - Heart Maternal Aunt - Diabetes Maternal Uncle - Heart Maternal Uncle - Allergies Maternal Aunt - Asthma Maternal Aunt Social History Substance Use Topics - Smoking status: Never Smoker - Smokeless tobacco: Never Used Comment: Spouse non-smoker. Father pipe smoker in childhood home, and at work. - Alcohol use Yes Comment: Very rarely. Blood pressure 122/80, pulse 79, temperature 37.1 ?C (98.8 ?F), temperature source Tympanic, weight (!) 181.9 kg (401 lb), SpO2 97 %. Objective Physical Exam Constitutional: She is oriented to person, place, and time and well-developed, well-nourished, and in no distress. HENT: Head: Normocephalic and atraumatic. Right Ear: Tympanic membrane, external ear and ear canal normal. Left Ear: Tympanic membrane, external ear and ear canal normal. Nose: Mucosal edema present. Mouth/Throat: Uvula is midline and mucous membranes are normal. Posterior oropharyngeal erythema present. No oropharyngeal exudate, posterior oropharyngeal edema or tonsillar abscesses. Neck: Normal range of motion. Neck supple. Cardiovascular: Normal rate, regular rhythm and normal heart sounds. Pulmonary/Chest: Effort normal and breath sounds normal. Lymphadenopathy: She has cervical adenopathy. Neurological: She is alert and oriented to person, place, and time. Skin: Skin is warm and dry. No rash noted. Psychiatric: Affect and judgment normal. Nursing note and vitals reviewed. ASSESSMENT/PLAN: 1. Sore throat - ICD9: 462, ICD10: J02.9 (primary diagnosis) - Rapid Strep negative in the office today and Throat culture pending - Discussed supportive care treatment with fluids, rest and analgesia. - Will check for mono with shakeel beavers panel. - GROUP A STREPTOCOCCUS BY PCR - RAPID STREP TEST B/O - SHAKEEL BEAVERS PANEL 2. Cough - ICD9: 786.2, ICD10: R05 - XR CHEST 2V FRONTAL/LAT 3. Viral URI with cough - ICD9: 465.9, ICD10: J06.9, B97.89 - Discussed viral etiology and rationale for treatment. - Symptomatic treatment with prn analgesia - Supportive care with fluids and rest - CXR here negative. I feel viral in nature. Discussed with patient concerning symptoms to go to the emergency department or follow up here. Pt agreeable with this plan. - CODEINE 10 MG-GUAIFENESIN 100 MG/5 ML ORAL LIQUID Aleksandar Watt PA-C EBV ANTIBODY PANEL Collected: 01/09/2018 Status: F Source: [place] 11:03 AM [facility] REPOSITORY TYPE CODE TESTS RESULT OUT OF RANGE REFERENCE UNITS LAB EBVGQ Negative Abnormal Alert EBV Positive VCA IgG, Qual Result Comment: Specimen is positive for EBV VCA IgG antibody. A positive test result presumes a current or past infection with EBV. Other EBV serology assays such as the EBV VCA IgM should be performed to confirm serologic status, active acute, past or indeterminate infection for EBV-associated infectious mononucleosis. LAB EBVGX AI EBV VCA IgG >8.0 Result Comment: AI VALUES ARE INTERPRETED FOLLOWS: NEGATIVE SPECIMENS <=0.8 EQUIVOCAL SPECIMENS 0.9 TO 1.0 POSITIVE SPECIMENS >=1.1 Antibody index (AI) values reflect qualitative changes in antibody concentration that cannot be associated with clinical condition or disease state. LAB EBVMQ Negative Negative EBV VCA IgM, Qual Result Comment: EBV VCA IgM antibodies are not detectable. LAB EBVMX AI EBV VCA IgM <0.2 Result Comment: AI VALUES ARE INTERPRETED FOLLOWS: NEGATIVE SPECIMENS <=0.8 EQUIVOCAL SPECIMENS 0.9 TO 1.0 POSITIVE SPECIMENS >=1.1 The magnitude of the reported IgM level cannot be correlated to an endpoint titer (or clinical status). LAB EBVEAQ Negative Negative EBV EA Ab, Qual Result Comment: EBV EA-D IgG antibodies are not detectable. If the result is negative and exposure to Shakeel-Beavers virus is suspected, a second sample should be collected and tested no less than one to two weeks later. LAB EBVEAX AI EBV EA Antibody 0.3 Result Comment: AI VALUES ARE INTERPRETED FOLLOWS: NEGATIVE SPECIMENS <=0.8 EQUIVOCAL SPECIMENS 0.9 TO 1.0 POSITIVE SPECIMENS >=1.1 Antibody index(AI) values reflect qualitative changes in antibody concentration that cannot be associated with clinical condition or disease state. LAB EBVNAQ Negative Abnormal Alert EBV Positive NA Ab, Qual Result Comment: Specimen is positive for EBV NA-1 IgG antibody. A positive test result presumes a current or past infection with EBV. Other EBV serology assays such as the EBV VCA IgM should be performed to confirm serologic status, active acute, past or indeterminate infection for EBV-associated infectious mononucleosis. LAB EBVNAX AI EBV NA Antibody >8.0 Result Comment: AI VALUES ARE INTERPRETED FOLLOWS: NEGATIVE SPECIMENS <=0.8 EQUIVOCAL SPECIMENS 0.9 TO 1.0 POSITIVE SPECIMENS >=1.1 Antibody index(AI) values reflect qualitative changes in antibody concentration that cannot be associated with clinical condition or disease state. LAB EBVINT EBV Interpretation See below Result Comment: (NOTE) Syndrome EBV VCA EBV VCA EBV EA EBV NA IgM IgG No EBV Neg Neg Neg Neg Acute Infection Pos Pos Pos Pos Past Infection Neg Pos Neg Pos Reactivation Pos or Neg Pos Pos or Neg Pos Note: EBV NA appears last in acute infection Performed By: #### EBVPNL #### [facility] [address] [place], [place] [address] XR CHEST 2V FRONTAL/LAT Observed: 01/09/2018 Status: F Source: [place] 10:37 AM [facility] REPOSITORY * * *Final Report* * * DATE OF EXAM: Jan 09 2018 10:37AM WOX [id number] - XR CHEST 2V FRONTAL/LAT / PROCEDURE REASON: Cough * * * * Physician Interpretation * * * * EXAMINATION: CHEST RADIOGRAPH (2 VIEW FRONTAL and LATERAL) CLINICAL HISTORY: Cough MQ: XC2_5 Comparison: None available RESULT: Lines, tubes, and devices: None. Lungs and pleura: No consolidation. No lung mass. No pleural effusion. Cardiomediastinal silhouette: Normal cardiomediastinal silhouette. Other: Surgical clips below the diaphragm. IMPRESSION: Lungs and pleural spaces appear clear. Investigative Writer: PSCB Transcribe Date/Time: Jan 09 2018 11:14A Dictated by : Fermin LOW MD This examination was interpreted and the report reviewed and electronically signed by: Fermin LOW MD on Jan 09 2018 11:20AM EST [id number] PROGRESS Observed: 01/09/2018 Status: COMPLETED Source: [place] 10:28 AM [facility] REPOSITORY HNO ID: [id number] Author: Becky Chavez Rt Service: (none) Author Type: (none) Type: Progress Notes Filed: 01/09/2018 10:37 AM Note Text: Radiology Service Progress Note PATIENT NAME: Mariaelena Tyler DATE OF SERVICE: January 09, 2018 TIME: 10:28 AM PATIENT IDENTITY VERIFICATION COMPLETED USING TWO (2) METHODS: Patient confirmed name verbally and Date of . PATIENT GENDER DATA: Female. status: : No status: NO. PATIENT RELEVANT IMPLANT DATA REVIEWED: Not Applicable RADIOLOGY DEPARTMENT: General X-ray: Exam(s) Completed: Chest X-Ray PERIPHERAL IV DATA: Not applicable SIGNED BY: Becky Chavez Rt January 09, 2018 10:28 AM GROUP A STREP BY Collected: 01/09/2018 Status: F Source: [place] PCR 10:20 AM [facility] REPOSITORY TYPE CODE TESTS RESULT OUT OF REFERENCE UNITS RANGE LAB GASSRC Throat Swab GAS Specimen Source LAB PCRGAS Negative for Group A Strep Group A PCR Streptococcus by PCR. Result Comment: This test was developed and its performance characteristics determined by [facility]'s Shari Flores [facility] Pathology [facility] Laboratory [facility] [place] [facility] It has not been cleared or approved by the FDA. -[facility] is regulated under CLIA as qualified to perform high-complexity testing. This test is used for clinical purposes. It should not be regarded as inv estigational or for research. Performed By: #### GASPCR #### [facility] [address] [place], [place] [address] CNOV Observed: 01/09/2018 Status: COMPLETED Source: [place] 10:00 AM [facility] REPOSITORY Office Visit (WSTR) MARIAELENA FORMAN ([id number]) 1970 F Date Time Provider Department 01/09/18 10:00 AM ALEKSANDAR WATT) WSTR During your visit today, we recorded the following information about you: Temperature Pulse Blood pressure Weight 98.8 degrees 79/minute 122/80 181.9 kg Aleksandar Watt PA-C 01/09/2018 11:52 AM Signed Subjective HPI Patient presents with the chief complaint of cough and sore throat. She she's had a sore throat off and on for the past 3 weeks. Her daughter was diagnosed with mono about 3 weeks ago as well. She herself had it as a child. Patient is status post splenectomy as a child as well due to Hodgkin's lymphoma. She states the cough started about 3 days ago. She is coughing up some green and also little bit of blood when she coughed. She denies any vomiting or diarrhea. She denies chest pain or shortness of breath. She hasn't had to use her inhaler today. She does have a history of asthma. She has felt feverish and chilled at home. No temperature taken. Review of Systems Constitutional: Positive for chills and fever. HENT: Positive for congestion and sore throat. Eyes: Negative. Respiratory: Positive for cough. Negative for sputum production, shortness of breath and wheezing. Cardiovascular: Negative. Negative for chest pain. Gastrointestinal: Negative. Genitourinary: Negative. Skin: Negative. Negative for itching and rash. All other systems reviewed and are negative. PAST MEDICAL HISTORY Diagnosis Date - Allergic rhinitis I'm allergic to everything. Dr. Overton tested, allergy shots long time, stopped 4-5 years ago. - Asthma Exercise induced diagnosed as adult, Rx ProAir. Symbicort added within last 2-4 years. - CVA (cerebral vascular accident) ([facility]) 07/26/2016 Right frontal lobe-posterior - Hodgkin's disease, unspecified type 1978 XRT (cobalt source) mantle, and chemoRx. - NSTEMI (non-ST elevated myocardial infarction) ([facility]) 2010 Patient denies. Attributed to PFO confirmed by [facility]. - KHUSHBU on CPAP AutoPAP. - PFO (patent foramen ovale) Confirmed by [facility]. - PMH - PAST MEDICAL HISTORY OF 10/05 adhesions - Pulmonary embolism ([facility]) 2010 Current Outpatient Prescriptions: codeine-guaiFENesin (GUAIFENESIN AC) 10-100 mg/5 mL syrup Take 5 mL by mouth four times daily as needed for up to 7 days. Disp: 100 mL Rfl: 0 montelukast (SINGULAIR) 10 mg tablet Take 1 tablet by mouth daily at bedtime. Disp: 30 tablet Rfl: 1 oxyCODONE-acetaminophen (PERCOCET) 5-325 mg tablet Disp: Rfl: 0 medroxyPROGESTERone (PROVERA) 10 mg tablet Take 1 tablet by mouth once daily. 10 days every other month as needed to start menses Disp: 10 tablet Rfl: 6 clopidogrel (PLAVIX) 75 mg tablet Take 75 mg by mouth once daily. Disp: Rfl: 3 escitalopram oxalate (LEXAPRO) 10 mg tablet Take 10 mg by mouth once daily. Disp: Rfl: 3 SYNTHROID 125 mcg tablet Take 125 mcg by mouth once daily. Disp: Rfl: 7 budesonide-formoterol (SYMBICORT) 160-4.5 mcg/actuation inhaler Inhale 2 Puffs as instructed twice daily. Disp: 1 Inhaler Rfl: 5 albuterol HFA (PROAIR HFA) 90 mcg/actuation inhaler Inhale 2 Puffs as instructed every 6 hours as needed. Disp: 1 Inhaler Rfl: 3 aspirin, enteric coated (ASPIRIN, ENTERIC COATED) 81 mg EC tablet Take 81 mg by mouth once daily. Disp: Rfl: loratadine-pseudoephedrine 24hr 10-240 mg (CLARITIN-D 24 HOUR) 10-240 mg Tb24 Take 1 tablet by mouth once daily as needed. Disp: Rfl: OTC PRODUCT Vitamin D twice weekly. Patient unsure of dose. Disp: Rfl: 0 OTC PRODUCT Vitamin B12 once daily. Patient unsure of dose. Disp: Rfl: 0 No current facility-administered medications for this visit. PAST SURGICAL HISTORY Procedure Laterality Date - APPENDECTOMY 1992 - COLONOSCOPY W/BX 05-19-15 - EGD W/O [facility] SPECIMEN W/BX 05-19-15 - HYSTEROSCOPY, SURGICAL; WITH SAMPLI 10/31/2017 Hysteroscopy w/ polyp resection w/ Symphion - L'SCOPE DX W/WO BRUSHINGS/WASHINGS 1987 Laparoscopy - PAST SURGICAL HISTORY OF lumpectomy x 2 - PAST SURGICAL HISTORY OF 1978 Staging splenectomy with Hodgkin's Dx. - PAST SURGICAL HISTORY OF 10/05 adhesion surgery - REPAIR INCIS HERNIA W MESH 02-09-08 - RIGHT HEART CATH 01/09/11 FAMILY HISTORY Problem Relation Age of Onset - Breast Cancer Mother - Skin Cancer Mother - other (parkinson disease) Mother - Diabetes Maternal Aunt - Heart Maternal Aunt - Diabetes Maternal Uncle - Heart Maternal Uncle - Allergies Maternal Aunt - Asthma Maternal Aunt Social History Substance Use Topics - Smoking status: Never Smoker - Smokeless tobacco: Never Used Comment: Spouse non-smoker. Father pipe smoker in childhood home, and at work. - Alcohol use Yes Comment: Very rarely. Blood pressure 122/80, pulse 79, temperature 37.1 ?C (98.8 ?F), temperature source Tympanic, weight (!) 181.9 kg (401 lb), SpO2 97 %. Objective Physical Exam Constitutional: She is oriented to person, place, and time and well-developed, well-nourished, and in no distress. HENT: Head: Normocephalic and atraumatic. Right Ear: Tympanic membrane, external ear and ear canal normal. Left Ear: Tympanic membrane, external ear and ear canal normal. Nose: Mucosal edema present. Mouth/Throat: Uvula is midline and mucous membranes are normal. Posterior oropharyngeal erythema present. No oropharyngeal exudate, posterior oropharyngeal edema or tonsillar abscesses. Neck: Normal range of motion. Neck supple. Cardiovascular: Normal rate, regular rhythm and normal heart sounds. Pulmonary/Chest: Effort normal and breath sounds normal. Lymphadenopathy: She has cervical adenopathy. Neurological: She is alert and oriented to person, place, and time. Skin: Skin is warm and dry. No rash noted. Psychiatric: Affect and judgment normal. Nursing note and vitals reviewed. ASSESSMENT/PLAN: 1. Sore throat - ICD9: 462, ICD10: J02.9 (primary diagnosis) - Rapid Strep negative in the office today and Throat culture pending - Discussed supportive care treatment with fluids, rest and analgesia. - Will check for mono with shakeel beavers panel. - GROUP A STREPTOCOCCUS BY PCR - RAPID STREP TEST B/O - SHAKEEL BEAVERS PANEL 2. Cough - ICD9: 786.2, ICD10: R05 - XR CHEST 2V FRONTAL/LAT 3. Viral URI with cough - ICD9: 465.9, ICD10: J06.9, B97.89 - Discussed viral etiology and rationale for treatment. - Symptomatic treatment with prn analgesia - Supportive care with fluids and rest - CXR here negative. I feel viral in nature. Discussed with patient concerning symptoms to go to the emergency department or follow up here. Pt agreeable with this plan. - CODEINE 10 MG-GUAIFENESIN 100 MG/5 ML ORAL LIQUID Aleksandar Watt PA-C Referring Provider: SELF [200] Allergies As of Date: 01/09/2018 Noted Allergy Reaction CONTRAST DYE (IODINE) 04/25/2012 4 - Hives VICODIN (HYDROCODONE-ACETAMINOPHE*01/17/2011 8 - GI Upset allergies [Other] 08/22/2005 5 - Intolerance Comments: seasonal MOBIC (MELOXICAM) 01/17/2011 4 - Hives Date Reviewed: 01/09/2018 Reviewed by: Yuliya Delgado Ma - Fully Assessed Reason for Visit: Sore Throat [200] Cmt: x2 weeks Cough [28] Cmt: productive Primary Visit Diagnosis:Sore throat [J02.9] Other Visit Diagnoses:Cough [R05] Viral URI with cough [J06.9, B97.89] Order(s):GROUP A STREPTOCOCCUS BY PCR [SQGASPCR] Order #: [id number] RAPID STREP TEST B/O [1436566] Order #: [id number] XR CHEST 2V FRONTAL/LAT [[id number]] Order #: [id number] FUTURE SHAKEEL BEAVERS PANEL [SQEBVPAN] Order #: [id number] FUTURE codeine-guaiFENesin (GUAIFENESIN AC) 10-100 mg/5 mL syrupTake 5 mL by mouth four times daily as needed for up to 7 days.Disp: 100 mLRfl: 0 Prescriptions as of 01/09/2018 Sig: CODEINE 10 MG-GUAIFENESIN 100* Take 5 mL by mouth four times* MONTELUKAST 10 MG TABLET Take 1 tablet by mouth daily * OXYCODONE-ACETAMINOPHEN 5 MG-* MEDROXYPROGESTERONE 10 MG TAB* Take 1 tablet by mouth once d* CLOPIDOGREL 75 MG TABLET Take 75 mg by mouth once donald* ESCITALOPRAM 10 MG TABLET Take 10 mg by mouth once donald* SYNTHROID 125 MCG TABLET Take 125 mcg by mouth once da* BUDESONIDE-FORMOTEROL HFA 160* Inhale 2 Puffs as instructed * ALBUTEROL SULFATE HFA 90 MCG/* Inhale 2 Puffs as instructed * ASPIRIN 81 MG TABLET,DELAYED * Take 81 mg by mouth once donald* LORATADINE-PSEUDOEPHEDRINE ER* Take 1 tablet by mouth once d* * OTC PRODUCT Vitamin D twice weekly. Patie* * OTC PRODUCT Vitamin B12 once daily. Patie* Problem List As Of Date 01/09/2018 Noted Resolved Other specified intestinal obstruction(560.89) *INVALID FOR*05/02/2016 Incisional hernia without mention of obstructio*INVALID FOR*05/02/2016 SUMMARY [V999.95] INVALID FOR* More... Pulmonary embolism, RLL [I26.99] INVALID FOR* More... NSTEMI (non-ST elevated myocardial infarction) *INVALID FOR* More... Abdominal pain, unspecified site [R10.9] INVALID FOR*05/02/2016 Phlebitis and thrombophlebitis of superficial v*INVALID FOR* Varicose veins of leg with swelling [I83.899] INVALID FOR* Varicose veins of leg with pain [I83.819] INVALID FOR* Thickened endometrium [R93.89] INVALID FOR* PMB (postmenopausal bleeding) [N95.0] INVALID FOR* Prescriptions ordered this encounter Disp Refills Start End CODEINE 10 MG-GUAIFENESIN 100 MG/5 M* 100 * 0 01/09/2018 01/16/2018 Class: Print RX Route: ORAL Sig: Take 5 mL by mouth four times daily as needed for up to 7 days. Encounter Status:Closed by ALEKSANDAR WATT PA-C on 01/09/18 VENOUS DUPLEX LOWER Observed: 12/06/2017 Status: F Source: [place] EXTREMITY 9:26 PM [facility] REPOSITORY [facility] Cardiovascular Services [address] [place] [address] Venous Duplex US, Unilateral 12/04/17 1529 MR#: [id number] Acct: [id number] Name: MARIAELENA FORMAN Rep #: [id number] : 1970 47 From: Gerard Ford MD Attending Dr: Eric John MD Status: REG CLI Ordering Dr: Eric John MD Date: 12/04/17 Location: [facility] Sex: F C Admitted: Reason For Study: Pain LLE Procedure LEFT Exam performed in department. GSV is normal. A preliminary report was called and/or CFV is compressible, spontaneous, phasic, faxed to Dr. John. competent, and demonstrates normal augmentation. FV is compressible, spontaneous, phasic, competent and demonstrates normal augmentation. POP V is compressible, spontaneous, phasic, competent and demonstrates normal augmentation. T/P Trunk is compressible. PTV is compressible. LT PerV is compressible. Difficult to visualize Lt FV distal and calf veins due to patient body habitus Hypoechoic, non vascular structure noted anterior prox calf and around the knee (area of bruising/swelling) measuring 4.56cm x 1.82cm. Interpretation Summary Deep veins of the left lower extremity are patent and compressible segmentally. There is no evidence of left lower extremity deep vein thrombosis. Valvular competence appears intact within the proximal deep venous system on the left . The left greater saphenous vein appears patent and compressible segmentally. The left distal femoral vein and calf veins were not well visualized due to the patient's body habitus. A non-vascular, hypoechoic structure is noted in the left proximal, anterior calf and the left knee area, measuring 4.65 cm x 1.82 cm. This may represent a hematoma or seroma. Clinical correlation is advised. Ordering Physician: Eric John Referring Physician: Sho Lozano Performed By: Yuliya Washington, RDCS, RVT 12/06/172124 Date Gerard Ford MD CC: Sho Lozano DO; Eric John MD Date Dictated: 12/04/17 1529 Date Transcribed: 12/06/172124 Investigative Writer: Signed SYNOVIAL FLUID RBC, Collected: 12/04/2017 Status: F Source: [place] WBC AND DIFF 3:39 PM [facility] REPOSITORY TYPE CODE TESTS RESULT OUT OF RANGE REFERENCE UNITS LAB L200.5050 0.000-0.000 10 3 uL High SYN Tot 1.[address] Result Comment: This is the Total Number of Nucleated Cell Types in the Body Fluid. LAB L200.5100 0 10 6/uL High SYNOVIAL RBC 1.487 LAB L200.5200 0.000-0.002 10 3uL High SYNOVIAL WBC 1.5070 LAB L200.5260 % SYBF PMN Normal WBC% 65.2 LAB L200.5270 10 3/ul SYBF PMN Normal WBC# 0.983 LAB L200.5280 % SYBF MN Normal WBC% 34.8 LAB L200.5800 PATH Normal COM/SYFL May follow LAB L200.4600 SYNOVIAL Normal SOURCE LEFT LEG LAB L200.4900 Pale Yellow SYNOVIAL Normal COLOR Bloody LAB L200.5000 CLEAR SYNOVIAL Normal ALEXSANDRA. Turbid LAB L200.5290 10 3/ul SYBF MN Normal WBC# 0.524 LAB L200.5300 0-25 % High NEUTROPHIL 75 LAB L200.5400 % LYMPH Normal 13 LAB L200.5500 % MONO Normal 3 LAB L200.5700 % OTHER Normal CELL /SYN 9 Result Comment: SYNOVIAL LINING CELLS Performed By: #### L200.0400, L200.4175 #### [facility] [address] [place], [place], [address] CRYSTALS, BODY FLUID Collected: 12/04/2017 Status: C Source: [place] 3:39 PM [facility] REPOSITORY TYPE CODE TESTS RESULT OUT OF RANGE REFERENCE UNITS LAB L200.4200 Normal SEE PATH REV CRYSTALS/BF LAB L200.4225 Normal SYNOVIAL SOURCE/BF LAB L200.6020 Normal PATH Reviewed REV Result Comment: Negative for malignant cells and crystals. Bloody specimen. Graham Velez M.D. 12/05/17 AMENDED REPORT 12/05/17 1337 PATH REV previously reported as: Will follow Performed By: #### L200.0400, L200.4175 #### [facility] [address] [place], [place], [address] Observed: 12/04/2017 Status: P Source: [place] CULTURE, BODY FLUID 3:39 PM [facility] REPOSITORY RESULTS CALLED TO DR JOHN 12/04/171920 Gokul Boo. REPORT READ BACK BY DR JOHN. List Antibiotics Last 48 Hours? UNK List Antibiotics to be Started? UNK Gram Stain Gram Stain 4+ Gram positive diplococci Performed By: #### M100.1300 #### [facility] [address] [place], [address] Observed: 12/04/2017 Status: F Source: [place] CULTURE, BODY FLUID 3:39 PM [facility] REPOSITORY AMENDED Results called on 12/05/17 by TED COFFMAN AT [facility] [phone]. List Antibiotics Last 48 Hours? UNK List Antibiotics to be Started? UNK Gram Stain Centrifuged Specimen? Culture performed on centrifuged specimen Gram Stain 4+ Red Blood Cells Rare White Blood Cells No organisms seen Body Fluid Cult Culture exhibits no growth. Cult, Anaerobic No growth in 5 days. Performed By: #### M100.1300 #### [facility] [address] [place], [address] CNOV Observed: 11/19/2017 Status: COMPLETED Source: [place] 10:10 AM [facility] REPOSITORY Office Visit (WOOB) MARIAELENA FORMAN ([id number]) 1970 F Date Time Provider Department 11/19/17 10:10 AM JEREMIE MASON During your visit today, we recorded the following information about you: Blood pressure Weight 124/78 185.1 kg Jeremie Mason MD 11/19/2017 10:44 AM Signed follow up visit Mariaelena Tyler is a 47 year old female who underwent hysteroscopy dilation and curettage and resection of endometrium on 10/31/17 for PMB, thickened endometrium. Her immediate post-op course was uncomplicated and she was discharged home from [facility] on post-op day #0 Symptoms since surgery: Fever/chills: No. Vaginal bleeding: Yes: mild, trailed off Pain: No. Operative findings: thickened endometrium, polypoid appearing Pathology: proliferative disordered endoemtrium Reviewed and updated past medical, surgical, family, social history, medications and allergies. There were no vitals taken for this visit. GENERAL: pleasant, female in no apparent distress Assessment: 47 year old doing well s/p hysteroscopy DANDC, perimenopaual, likely anovulatory bleeding 1) Operative findings and pathology were reviewed with the patient and all questions were answered. Additional follow up or treatment indicated: recommend progesterone therapy mirena vs cyclic provera, cylcic provera for now 2) Return for Annual exam or sooner as needed Jeremie Mason MD Referring Provider: SELF [200] Allergies As of Date: 11/19/2017 Noted Allergy Reaction CONTRAST DYE (IODINE) 04/25/2012 4 - Hives VICODIN (HYDROCODONE-ACETAMINOPHE*01/17/2011 8 - GI Upset allergies [Other] 08/22/2005 5 - Intolerance Comments: seasonal MOBIC (MELOXICAM) 01/17/2011 4 - Hives Date Reviewed: 11/19/2017 Reviewed by: Jeremie Mason - Fully Assessed Reason for Visit: Post Op [174] Cmt: 2 weeks Primary Visit Diagnosis:Anovulatory (dysfunctional uterine) bleeding [N97.0] Other Visit Diagnosis:Thickened endometrium [R93.8] Order(s):medroxyPROGESTERone (PROVERA) 10 mg tabletTake 1 tablet by mouth once daily. 10 days every other month as needed to start mensesDisp: 10 tabletRfl: 6 Prescriptions as of 11/19/2017 Sig: OXYCODONE-ACETAMINOPHEN 5 MG-* MONTELUKAST 10 MG TABLET Take 1 tablet by mouth daily * CLOPIDOGREL 75 MG TABLET Take 75 mg by mouth once donald* ESCITALOPRAM 10 MG TABLET Take 10 mg by mouth once donald* SYNTHROID 125 MCG TABLET Take 125 mcg by mouth once da* BUDESONIDE-FORMOTEROL HFA 160* Inhale 2 Puffs as instructed * ALBUTEROL SULFATE HFA 90 MCG/* Inhale 2 Puffs as instructed * ASPIRIN 81 MG TABLET,DELAYED * Take 81 mg by mouth once donald* LORATADINE-PSEUDOEPHEDRINE ER* Take 1 tablet by mouth once d* * OTC PRODUCT Vitamin D twice weekly. Patie* * OTC PRODUCT Vitamin B12 once daily. Patie* MEDROXYPROGESTERONE 10 MG TAB* Take 1 tablet by mouth once d* Problem List As Of Date 11/19/2017 Noted Resolved Other specified intestinal obstruction(560.89) *INVALID FOR*05/02/2016 Incisional hernia without mention of obstructio*INVALID FOR*05/02/2016 SUMMARY [V999.95] INVALID FOR* More... Pulmonary embolism, RLL [I26.99] INVALID FOR* More... NSTEMI (non-ST elevated myocardial infarction) *INVALID FOR* More... Abdominal pain, unspecified site [R10.9] INVALID FOR*05/02/2016 Phlebitis and thrombophlebitis of superficial v*INVALID FOR* Varicose veins of leg with swelling [I83.899] INVALID FOR* Varicose veins of leg with pain [I83.819] INVALID FOR* Thickened endometrium [R93.8] INVALID FOR* PMB (postmenopausal bleeding) [N95.0] INVALID FOR* Prescriptions ordered this encounter Disp Refills Start End MEDROXYPROGESTERONE 10 MG TABLET 10 t* 6 11/19/2017 Route: ORAL Sig: Take 1 tablet by mouth once daily. 10 days every other month as needed to start menses Medications Discontinued During This Encounter ibuprofen (MOTRIN) 600 mg tablet 20 t* 1 10/23/2017 11/19/2017 Route: ORAL Sig: Take 1 tablet by mouth every 6 hours as needed. FOR PAIN. Disc: Reason for discontinue is not on file. Encounter Status:Closed by JEREMIE MASON MD on 11/19/17 PROGRESS Observed: 11/19/2017 Status: COMPLETED Source: [place] 10:09 AM [facility] REPOSITORY HNO ID: [id number] Author: Jeremie Mason Service: (none) Author Type: Physician Type: Progress Notes Filed: 11/19/2017 10:44 AM Note Text: follow up visit Mariaelena Tyler is a 47 year old female who underwent hysteroscopy dilation and curettage and resection of endometrium on 10/31/17 for PMB, thickened endometrium. Her immediate post-op course was uncomplicated and she was discharged home from [facility] on post-op day #0 Symptoms since surgery: Fever/chills: No. Vaginal bleeding: Yes: mild, trailed off Pain: No. Operative findings: thickened endometrium, polypoid appearing Pathology: proliferative disordered endoemtrium Reviewed and updated past medical, surgical, family, social history, medications and allergies. There were no vitals taken for this visit. GENERAL: pleasant, female in no apparent distress Assessment: 47 year old doing well s/p hysteroscopy DANDC, perimenopaual, likely anovulatory bleeding 1) Operative findings and pathology were reviewed with the patient and all questions were answered. Additional follow up or treatment indicated: recommend progesterone therapy mirena vs cyclic provera, cylcic provera for now 2) Return for Annual exam or sooner as needed Jeremie Mason MD DISCHARGE INSTRUCTION Observed: 11/11/2017 Status: F Source: [place] 10:13 PM [facility] REPOSITORY [facility] Medical Records Department [address] [place] [address] Discharge Instruction 11/11/172211 MR#: [id number] Acct: [id number] Name: MARIAELENA FORMAN Saray Rep #: [id number] : 1970 47 From: Indio Chisholm DO PCP: Sho Lozano DO Status: REG ER ED Disposition - Plan for ED Patient: Chief Complaint: Lower Extremity Injury Instructions: ED Contusion Lower Ext, ED Contusion Hand Prescriptions: Oxycodone HCl/Acetaminophen [Percocet 5/325] 1 tab PO Q6H PRN PRN 3 Days #12 tab PRN Reason: Pain Referrals: Sho Lozano DO [Primary Care Provider] - Eric John MD [STAFF PHYSICIAN] - 5-7 Days What to do if you have Problems For any increased pain, shortness of breath, bleeding, nausea or vomiting, chest pain, or any unexpected problems, contact your Primary Care Provider. Call [facility] ([phone]) or report to the closest Emergency Room. Call 911 if necessary. 11/11/172212 <Electronically signed by Indio Chisholm DO> Date Indio Chisholm DO Cosigner Signature (If Indicated): Date CC: Sho Lozano DO EMERGENCY DEPARTMENT Observed: 11/11/2017 Status: F Source: [place] SUMMARY 10:11 PM [facility] REPOSITORY [facility] Medical Records Department [address] [place] [address] Emergency Department Summary 11/11/17 2209 MR#: [id number] Acct: [id number] Name: MARIAELENA FORMAN Rep #: [id number] : 1970 47 From: Indio Chisholm DO PCP: Sho Lozano DO Status: REG ER - ER Visit Summary Date of Service: 11/11/17 Chief Complaint: [Fall] History of Present Illness: The patient is a 47 F [l presents the emergency department [place] Patient states that she tripped over a crack in the concrete and landed on her knees. Patient complains of pain mostly in the left knee and pain with ambulation. Patient having a hard time bearing weight secondary to pain. Patient has a history of hypertension and Hodgkin's lymphoma. Physical Examination: [HEENT-PERRLA, EOMI. Cranial nerves II through XII grossly intact. TMs clear. Mucous membranes moist. No adenopathy. Cardiovascular-regular rate and rhythm without murmur or ectopy Lungs-clear to auscultation, chest wall stable without crepitus or subcu emphysema Abdomen-normoactive bowel sounds, soft, nontender, no rebound or rigidity, no peritoneal signs. Extremities-intact 4, normal range of motion, normal pulses. Patient does have ecchymosis and bruising to the left knee with soft tissue swelling. She has diffuse pain on palpation. She is ligamentously stable. Right knee-mild soft tissue swelling minimal bony tenderness on exam. Patient has normal range of motion flexion extension of the knee. Elevation left hand does reveal some ecchymosis and bruising over the dorsal aspect of the third MCP joint. She has tenderness over the third metacarpal. Neurovascular intact distally. No obvious deformity. Test Results: [X-rays of bilateral knees and left hand obtained showed no fractures.] Emergency Department Course and Treatment: [Patient was given Taurus wrap for her left knee.] Treatment Plan: [Patient was given a prescription for Percocet for pain and advised to follow-up with her orthopedic surgeon within next 3-5 days] Disposition: [Discharged home in stable condition] Impression: [Mechanical fall Bilateral knee contusions Left hand contusion] This note was generated with Simperium dictation software. It may contain incorrect words, spelling, and punctuation that were not noted in review of the chart prior to signing ED Disposition - Plan for ED Patient: Chief Complaint: Lower Extremity Injury Referrals: Sho Lozano DO [Primary Care Provider] - What to do if you have Problems For any increased pain, shortness of breath, bleeding, nausea or vomiting, chest pain, or any unexpected problems, contact your Primary Care Provider. Call [facility] ([phone]) or report to the closest Emergency Room. Call 911 if necessary. 11/11/17 2211 <Electronically signed by Indio Chisholm DO> Date Indio Chisholm DO Cosigner Signature (If Indicated): Date CC: Sho Lozano DO KNEE 3 VIEWS Observed: 11/11/2017 Status: F Source: [place] 9:13 PM [facility] REPOSITORY [facility] Imaging Services [address] [place] [address] Knee 3 Views MR#: [id number] Acct: [id number] Name: MARIAELENA FORMAN Rep #: [id number] : 1970 F 47 From: Olena Gilman MD PCP: Sho Lozano DO Status: REG ER Study: Knee 3 Views Date of Exam: 11/11/17 Exam# [id number] Ordering Dr: Indio Chisholm DO STUDY: X-RAY - RIGHT KNEE REASON FOR EXAM: Female, 47 years old. Fall, knee pain. TECHNIQUE: 3 view(s) of the knee. COMPARISON: None. FINDINGS: Normal visualized distal femur. Normal visualized proximal tibia and fibula. Normal proximal tibiofibular articulation. Normal medial femorotibial compartment. Normal lateral femorotibial compartment. Normal patellofemoral articulation. The soft tissue structures are unremarkable. RAD/Knee 3 Views IMPRESSION: Normal x-ray examination of the knee. Electronically Signed: Olena Gilman MD at 21:56 EDT Tel , Service support , CC: Sho Lozano DO; Indio Chisholm DO Investigative Writer: Signed HAND MIN 3 VIEWS Observed: 11/11/2017 Status: F Source: [place] 8:58 PM [facility] REPOSITORY [facility] Imaging Services [address] [place] [address] Hand Min 3 Views MR#: [id number] Acct: [id number] Name: MARIAELENA FORMAN Rep #: [id number] : 1970 F 47 From: Olena Gilman MD PCP: Sho Lozano DO Status: REG ER Study: Hand Min 3 Views Date of Exam: 11/11/17 Exam# [id number] Ordering Dr: Indio Chisholm DO STUDY: X-RAY - LEFT HAND REASON FOR EXAM: Female, 47 years old. Fall. Pain around second MCP joint. TECHNIQUE: 3 view(s) of the hand. COMPARISON: None. FINDINGS: Slight limitation due to ring on the fourth digit. There is no fracture or dislocation. Joint spaces are well-maintained. Soft tissues and bony structures are unremarkable. RAD/Hand Min 3 Views IMPRESSION: Normal x-ray examination of the hand. Electronically Signed: Olena Gilman MD at 21:55 EDT Tel , Service support , CC: Sho Lozano DO; Indio Chisholm DO Investigative Writer: Signed KNEE 3 VIEWS Observed: 11/11/2017 Status: F Source: [place] 8:58 PM [facility] REPOSITORY [facility] Imaging Services [address] [place], [place] [address] [place] [address] Knee 3 Views MR#: [id number] Acct: [id number] Name: MARIAELENA FORMAN Rep #: [id number] : 1970 F 47 From: Olena Gilman MD PCP: Sho Lozano DO Status: REG ER Study: Knee 3 Views Date of Exam: 11/11/17 Exam# [id number] Ordering Dr: Indio Chisholm DO STUDY: X-RAY - LEFT KNEE REASON FOR EXAM: Female, 47 years old. Fall, left knee pain. TECHNIQUE: view(s) of the knee. COMPARISON: None. FINDINGS: Normal visualized distal femur. Normal visualized proximal tibia and fibula. Normal proximal tibiofibular articulation. Normal medial femorotibial compartment. Normal lateral femorotibial compartment. Normal patellofemoral articulation. There is marked anterior soft tissue swelling. RAD/Knee 3 Views IMPRESSION: Soft tissue swelling. No evidence of fracture. Electronically Signed: Olena Gilman MD at 21:57 EDT Tel , Service support , CC: Sho Lozano DO; Indio Menendezlaura DAMON Investigative Writer: Signed HISTORY PHYSICAL Observed: 11/01/2017 Status: COMPLETED Source: [place] 5:48 PM [facility] REPOSITORY HNO ID: [id number] Author: Jeremie Mason Service: (none) Author Type: Physician Type: HANDP Filed: 11/01/2017 5:50 PM Note Text: Patient underwent hysteroscopy and visual dilation and curettage with removal of polypoid endometrial tissue on October 31, 2017 at [facility]. Patient tolerated the procedure well and was discharged home. Pathology is pending. This was performed for postmenopausal bleeding and an endometrial polyp. Jeremie Mason MD ENDOMETRIAL BX/CURETTINGS Observed: 11/01/2017 Status: F Source: [place] 12:00 AM [facility] REPOSITORY Patient: MARIAELENA FORMAN : 1970 (47/F) Acct Num: [id number] Phys: Jeremie Mason MD Unit Num: [id number] Loc: [facility] Specimen: [id number] Received: 11/01/17 - 1002 Spec Type: ENDOM BX/C TISSUES TISSUES: Endometrium, NOS GROSS DESCRIPTION Received in fixative is one container labeled with the patient's name and designated endometrial curettings. The specimen consists of multiple irregular fragments of light elizabteh soft tissue that in aggregate measure 2 x 1 x 0.1 cm. The specimen is totally submitted in one cassette. / AM:nancy 11/01/17 TC:5 CPT: 91190 HEADER OPERATION: Hysteroscopy, D AND C, resection, Symphion PRE-OP DIAGNOSIS: Postmenopausal bleeding, thickened endometrium TISSUE SUBMITTED: Endometrial curettings MICROSCOPIC DESCRIPTION Slides are reviewed. MICROSCOPIC DIAGNOSIS Endometrial curettings: Mildly disordered proliferative endometrium. Fragments of myometrium. SJ:nancy 11/05/17 Signed Graham Velez 11/05/17 <signature on file> Performed By: #### PEMB #### [facility] [address] [place] [address] [place], [place], [id number] OPERATIVE REPORT Observed: 10/31/2017 Status: F Source: [place] 4:04 PM [facility] REPOSITORY [facility] Medical Records Department [address] [place] [address] Operative Report 10/31/17 1552 MR#: [id number] Acct: [id number] Name: MARIAELENA FORMAN Rep #: [id number] : 1970 47 From: Jeremie Mason MD PCP: Sho Lozano DO Status: REG [facility] Y Location: [place] [address] Report of Operation Date of Procedure: 10/31/17 Pre-Operative Diagnosis: PMB, endometrial polyp Post-Operative Diagnosis: same Surgery/Procedure Performed:: Hysteroscopy and visual dilation and curettage with removal of polypoid appearing tissue with Symphion device Description of Surgical Findings:: Very small endometrial cavity. Both tubal ostia are identified. There is some polypoid appearing material in the anterior endometrial wall. Normal- appearing cervix, vagina and endocervical canal. infectious diseases physician: Shabnam Cuadra MS3 Type of Anesthesia:: General Anesthesiologist: Carlotta Pond Special Medications: none Specimen's removed: Endometrial curetting Drains: None Estimated Blood Loss (mL): 10 cc Fluids Replaced: LR Description of Procedure: The patient was taken to the OR where she was prepped and draped in dorsal lithotomy position. The weighted speculum was placed in the vagina and the anterior lip of the cervix was grasped with a single-tooth tenaculum. A paracervical block was administered with [1% lidocaine with 1-100,000 epinephrine solution]. The cervix was dilated serially with Hegar dilators. The [7mm] hysteroscope was placed into the uterine cavity and the above findings were noted. Bilateral tubal ostia [were] identified. The hysteroscope was removed. The Symphion device was readied and inserted. The device was used to remove the polypoid appearing material from the anterior uterine wall and then to do a visual D AND C of the entire uterine cavity.. The instruments were removed from the vagina. The specimen was handed off and sent to pathology. All sponge and needle counts were correct. Vaginal sweep was performed by me. The patient was awakened and taken to the recovery room in stable condition. Hysteroscopic fluid deficit was 250 cc of normal saline Grafts/Implants Used: None - Complications None - Admit VTE Documentation VTE Present on Admission: No VTE Mechan Device Prophylaxis: SCD's VTE Pharm Prophylaxis ordered?: No 10/31/17 1604 <Electronically signed by Jeremie Mason MD> Date Jeremie Mason MD CC: Sho Lozano DO; Jeremie Mason MD Signed DISCHARGE INSTRUCTION Observed: 10/31/2017 Status: F Source: [place] 3:52 PM [facility] REPOSITORY [facility] Medical Records Department [address] [place] [address] Instructions for Home/Discharge Instructions 10/31/17 1551 MR#: [id number] Acct: [id number] Name: MARIAELENA FORMAN Rep #: [id number] : 1970 47 From: Jeremie Mason MD PCP: Sho Lozano DO Status: REG NHC Discharge Diet: No Restrictions Discharge Activity: Return [...] 10/24/17 10:07) Rash Medications to take at Discharge Albuterol IH (ProAir) [Proair Hfa] 2 puff INHALATION Q4H PRN PRN 04/08/15 Budesonide/Formoterol 160/4.5 [Symbicort 160/4.5 Mcg Inhaler (SP)] 2 puff INHALATION BID 04/08/15 Levothyroxine [Synthroid] 25 mcg PO DAILY 04/08/15 Loratadine [Claritin] 10 mg PO PRN PRN 04/08/15 Multivitamin [Multiple Vitamins] 1 each PO DAILY 07/29/16 Clopidogrel Bisulfate [Plavix] 75 mg PO DAILY #30 tablet 07/31/16 Escitalopram Oxalate [Lexapro] 10 mg PO DAILY #30 tablet 07/31/16 Losartan/Hydrochlorothiazide [Losartan-Hctz 100-25 mg Tab] 1 each PO DAILY 10/24/17 Montelukast [Singulair] 10 mg PO DAILY 10/24/17 Primary Care Physician: Sho Lozano DO [Primary Care Provider] - Test Results: Test results from this visit will be discussed in further detail at your follow-up appointment, if applicable. Please Follow Up With: Jeremie Mason MD - [phone] When: Dr. Mason's office 2-4 weeks or as needed 10/31/17 2457 <Electronically signed by Jeremie Mason MD> Date Jeremie Mason MD CC: Sho Lozano DO TYPE AND SCREEN Collected: 10/31/2017 Status: F Source: [place] 1:30 PM [facility] REPOSITORY Order Comment: Reason for Type AND Screen/Red Cells: SURGERY TYPE CODE TESTS RESULT OUT OF RANGE REFERENCE UNITS LAB B10.0800 B Normal BLOOD TYPE GEL POSITIVE LAB B100.4000 Normal Antibody NEGATIVE Screen Performed By: #### L400.7600, B101.7450 #### [facility] [address] [facility] [place], [address] ,URINE Collected: 10/31/2017 Status: F Source: [place] 1:15 PM [facility] REPOSITORY TYPE CODE TESTS RESULT OUT OF REFERENCE UNITS RANGE LAB L400.8000 Negative Normal HCGUQUAL Negative Result Comment: Very dilute urine specimens, as indicated by a low specific gravity, may not contain inside account representative levels of hCG. If is still suspected, a first morning urine specimen should be collected 48 hours later and tested. Performed By: #### L400.7600, B101.7450 #### [facility] [address] [facility] [place], [address] CNOP Observed: 10/31/2017 Status: COMPLETED Source: [place] 12:00 AM [facility] REPOSITORY Operative Note (Enc) (WOOB) Encounter Status:Closed by JEREMIE MASON MD on 11/01/17 HISTORY PHYSICAL Observed: 10/23/2017 Status: COMPLETED Source: [place] 10:14 AM [facility] REPOSITORY HNO ID: [id number] Author: Jeremie Mason Service: (none) Author Type: Physician Type: HANDP Filed: 10/23/2017 10:54 AM Note Text: Pre-Op History and Physical HPI: The patient is a 47 year old female presenting for pre-operative visit. She is scheduled for Hysteroscopy [facility] w/ possible polyp resection for PMB and endometrial polyp on 10/31/17. Procedure discussed along with risks, benefits and complications. Other alternatives discussed for management. Consent form signed? Yes. PAST MEDICAL HISTORY Diagnosis Date - Allergic rhinitis I'm allergic to everything. Dr. Overton tested, allergy shots long time, stopped 4-5 years ago. - Asthma Exercise induced diagnosed as adult, Rx ProAir. Symbicort added within last 2-4 years. - CVA (cerebral vascular accident) ([facility]) 07/26/2016 Right frontal lobe-posterior - Hodgkin's disease, unspecified type 1978 XRT ([place] source) mantle, and chemoRx. - NSTEMI (non-ST elevated myocardial infarction) ([facility]) 2010 Patient denies. Attributed to PFO confirmed by [facility]. - KHUSHBU on CPAP AutoPAP. - PFO (patent foramen ovale) Confirmed by [facility]. - PMH - PAST MEDICAL HISTORY OF 10/05 adhesions - Pulmonary embolism ([facility]) 2010 PAST SURGICAL HISTORY Procedure Laterality Date - APPENDECTOMY 1992 - COLONOSCOPY W/BX 05-19-15 - EGD W/O BRSH SPECIMEN W/BX 05-19-15 - L'SCOPE DX W/WO BRUSHINGS/WASHINGS 1987 Laparoscopy - PAST SURGICAL HISTORY OF lumpectomy x 2 - PAST SURGICAL HISTORY OF 1978 Staging splenectomy with Hodgkin's Dx. - PAST SURGICAL HISTORY OF 10/05 adhesion surgery - REPAIR INCIS HERNIA W MESH 02-09-08 - RIGHT HEART CATH 01/09/11 Current Outpatient Prescriptions: montelukast (SINGULAIR) 10 mg tablet Take 1 tablet by mouth daily at bedtime. Disp: 30 tablet Rfl: 2 clopidogrel (PLAVIX) 75 mg tablet Take 75 mg by mouth once daily. Disp: Rfl: 3 atorvastatin (LIPITOR) 80 mg tablet Take 80 mg by mouth daily at bedtime. Disp: Rfl: 4 escitalopram oxalate (LEXAPRO) 10 mg tablet Take 10 mg by mouth once daily. Disp: Rfl: 3 SYNTHROID 125 mcg tablet Take 125 mcg by mouth once daily. Disp: Rfl: 7 budesonide-formoterol (SYMBICORT) 160-4.5 mcg/actuation inhaler Inhale 2 Puffs as instructed twice daily. Disp: 1 Inhaler Rfl: 5 albuterol HFA (PROAIR HFA) 90 mcg/actuation inhaler Inhale 2 Puffs as instructed every 6 hours as needed. Disp: 1 Inhaler Rfl: 3 aspirin, enteric coated (ASPIRIN, ENTERIC COATED) 81 mg EC tablet Take 81 mg by mouth once daily. Disp: Rfl: loratadine-pseudoephedrine 24hr 10-240 mg (CLARITIN-D 24 HOUR) 10-240 mg Tb24 Take 1 tablet by mouth once daily as needed. Disp: Rfl: OTC PRODUCT Vitamin D twice weekly. Patient unsure of dose. Disp: Rfl: 0 OTC PRODUCT Vitamin B12 once daily. Patient unsure of dose. Disp: Rfl: 0 No current facility-administered medications for this visit. 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 Father pipe smoker in childhood home, and at work. Alcohol use: Yes Comment: Very rarely. Drug use: No Sexual activity: No FAMILY HISTORY: FAMILY HISTORY Problem Relation Age of Onset - Breast Cancer Mother - Skin Cancer Mother - other (parkinson disease) Mother - Diabetes Maternal Aunt - Heart Maternal Aunt - Diabetes Maternal Uncle - Heart Maternal Uncle - Allergies Maternal Aunt - Asthma Maternal Aunt REVIEW OF SYMPTOMS: GENERAL: denies fevers or chills ENDOCRINOLOGY: has not been on steroids Cardiology : denies palpitations or chest pain Respiratory: denies SOB or cough Hematology: denies history of prolonged bleeding or easy bruising, h/o PE Allergy: Denies history of personal or family history of allergy to anesthesia PHYSICAL EXAMINATION: VITALS: There were no vitals taken for this visit. GENERAL: The patient is well nourished, well hydrated in no acute distress. , The patient is oriented to time, place, and person. NECK: Supple. No lynphadenopathy, normal thyroid, no thyromegaly. LUNGS: Clear to auscultation bilaterally. no wheezes, rhonchi or rales HEART: Regular rate and rhythm, Normal heart sounds and No murmurs or gallops GENITALIA: Normal external genitalia, Urethral meatus normal, Bladder nontender, normal vagina and normal vaginal tone, normal cervix, normal uterus, size and consistency, normal adnexa without masses or tenderness and perineum WNL WET PREP: Not indicated IMPRESSION: PMB, thickened endometrium PLAN: The risks/benefits/alternatives and personal involved for the planned h/s DANDC w/ possible polyp resection were reviewed with the patient. Her questions were answered to her satisfaction and she desires to proceed. Consent was signed. I reviewed with her postop instructions and expectations. I have reviewed and updated past medical and surgical history, medications and allergies Román RobledoOV Observed: 10/23/2017 Status: COMPLETED Source: [place] 10:10 AM [facility] REPOSITORY Office Visit (WOOB) MARIAELENA FORMAN ([id number]) 1970 F Date Time Provider Department 10/23/17 10:10 AM JEREMIE MASON WOOB During your visit today, we recorded the following information about you: Pulse Respiration Blood pressure Weight 88/minute 16/minute 134/86 184.2 kg Height 1.803 m Jeremie Mason MD 10/23/2017 10:54 AM Signed Pre-Op History and Physical HPI: The patient is a 47 year old female presenting for pre- operative visit. She is scheduled for Hysteroscopy DANDC w/ possible polyp resection for PMB and endometrial polyp on 10/31/17. Procedure discussed along with risks, benefits and complications. Other alternatives discussed for management. Consent form signed? Yes. PAST MEDICAL HISTORY Diagnosis Date - Allergic rhinitis I'm allergic to everything. Dr. Overton tested, allergy shots long time, stopped 4-5 years ago. - Asthma Exercise induced diagnosed as adult, Rx ProAir. Symbicort added within last 2-4 years. - CVA (cerebral vascular accident) ([facility]) 07/26/2016 Right frontal lobe-posterior - Hodgkin's disease, unspecified type 1978 XRT ([place] source) mantle, and chemoRx. - NSTEMI (non-ST elevated myocardial infarction) ([facility]) 2010 Patient denies. Attributed to PFO confirmed by [facility]. - KHUSHBU on CPAP AutoPAP. - PFO (patent foramen ovale) Confirmed by [facility]. - PMH - PAST MEDICAL HISTORY OF 10/05 adhesions - Pulmonary embolism ([facility]) 2010 PAST SURGICAL HISTORY Procedure Laterality Date - APPENDECTOMY 1992 - COLONOSCOPY W/BX 05-19-15 - EGD W/O BRSH SPECIMEN W/BX 05-19-15 - L'SCOPE DX W/WO BRUSHINGS/WASHINGS 1987 Laparoscopy - PAST SURGICAL HISTORY OF lumpectomy x 2 - PAST SURGICAL HISTORY OF 1978 Staging splenectomy with Hodgkin's Dx. - PAST SURGICAL HISTORY OF 10/05 adhesion surgery - REPAIR INCIS HERNIA W MESH 02-09-08 - RIGHT HEART CATH 01/09/11 Current Outpatient Prescriptions: montelukast (SINGULAIR) 10 mg tablet Take 1 tablet by mouth daily at bedtime. Disp: 30 tablet Rfl: 2 clopidogrel (PLAVIX) 75 mg tablet Take 75 mg by mouth once daily. Disp: Rfl: 3 atorvastatin (LIPITOR) 80 mg tablet Take 80 mg by mouth daily at bedtime. Disp: Rfl: 4 escitalopram oxalate (LEXAPRO) 10 mg tablet Take 10 mg by mouth once daily. Disp: Rfl: 3 SYNTHROID 125 mcg tablet Take 125 mcg by mouth once daily. Disp: Rfl: 7 budesonide-formoterol (SYMBICORT) 160-4.5 mcg/actuation inhaler Inhale 2 Puffs as instructed twice daily. Disp: 1 Inhaler Rfl: 5 albuterol HFA (PROAIR HFA) 90 mcg/actuation inhaler Inhale 2 Puffs as instructed every 6 hours as needed. Disp: 1 Inhaler Rfl: 3 aspirin, enteric coated (ASPIRIN, ENTERIC COATED) 81 mg EC tablet Take 81 mg by mouth once daily. Disp: Rfl: loratadine-pseudoephedrine 24hr 10-240 mg (CLARITIN-D 24 HOUR) 10-240 mg Tb24 Take 1 tablet by mouth once daily as needed. Disp: Rfl: OTC PRODUCT Vitamin D twice weekly. Patient unsure of dose. Disp: Rfl: 0 OTC PRODUCT Vitamin B12 once daily. Patient unsure of dose. Disp: Rfl: 0 No current facility-administered medications for this visit. 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 Father pipe smoker in childhood home, and at work. Alcohol use: Yes Comment: Very rarely. Drug use: No Sexual activity: No FAMILY HISTORY: FAMILY HISTORY Problem Relation Age of Onset - Breast Cancer Mother - Skin Cancer Mother - other (parkinson disease) Mother - Diabetes Maternal Aunt - Heart Maternal Aunt - Diabetes Maternal Uncle - Heart Maternal Uncle - Allergies Maternal Aunt - Asthma Maternal Aunt REVIEW OF SYMPTOMS: GENERAL: denies fevers or chills ENDOCRINOLOGY: has not been on steroids Cardiology : denies palpitations or chest pain Respiratory: denies SOB or cough Hematology: denies history of prolonged bleeding or easy bruising, h/o PE Allergy: Denies history of personal or family history of allergy to anesthesia PHYSICAL EXAMINATION: VITALS: There were no vitals taken for this visit. GENERAL: The patient is well nourished, well hydrated in no acute distress. , The patient is oriented to time, place, and person. NECK: Supple. No lynphadenopathy, normal thyroid, no thyromegaly. LUNGS: Clear to auscultation bilaterally. no wheezes, rhonchi or rales HEART: Regular rate and rhythm, Normal heart sounds and No murmurs or gallops GENITALIA: Normal external genitalia, Urethral meatus normal, Bladder nontender, normal vagina and normal vaginal tone, normal cervix, normal uterus, size and consistency, normal adnexa without masses or tenderness and perineum WNL WET PREP: Not indicated IMPRESSION: PMB, thickened endometrium PLAN: The risks/benefits/alternatives and personal involved for the planned h/s DANDC w/ possible polyp resection were reviewed with the patient. Her questions were answered to her satisfaction and she desires to proceed. Consent was signed. I reviewed with her postop instructions and expectations. I have reviewed and updated past medical and surgical history, medications and allergies Jeremie Mason M.D. Referring Provider: SELF [200] Allergies As of Date: 10/23/2017 Noted Allergy Reaction CONTRAST DYE (IODINE) 04/25/2012 4 - Hives VICODIN (HYDROCODONE-ACETAMINOPHE*01/17/2011 8 - GI Upset allergies [Other] 08/22/2005 5 - Intolerance Comments: seasonal MOBIC (MELOXICAM) 01/17/2011 4 - Hives Date Reviewed: 09/30/2017 Reviewed by: Jeremie Mason - Fully Assessed Reason for Visit: Pre-Op Visit [1235] Primary Visit Diagnosis:PMB (postmenopausal bleeding) [N95.0] Other Visit Diagnoses:Postoperative pain [G89.18] Thickened endometrium [R93.8] Order(s):ibuprofen (MOTRIN) 600 mg tabletTake 1 tablet by mouth every 6 hours as needed. FOR PAIN.Disp: 20 tabletRfl: 1 HYDROcodone-acetaminophen (NORCO) 5-325 mg per tabletTake 1-2 tablets by mouth every 8 hours as needed for Pain for up to 3 days.Disp: 8 tabletRfl: 0 miSOPROStol (CYTOTEC) 200 mcg tabletUse 2 tablets vaginally as directed for [address] 2 tablets vaginally qhs before the procedure and 2 the morning ofDisp: 4 tabletRfl: 0 Prescriptions as of 10/23/2017 Sig: IBUPROFEN 600 MG TABLET Take 1 tablet by mouth every * HYDROCODONE 5 MG-ACETAMINOPHE* Take 1-2 tablets by mouth yanni* MISOPROSTOL 200 MCG TABLET Use 2 tablets vaginally as di* MONTELUKAST 10 MG TABLET Take 1 tablet by mouth daily * CLOPIDOGREL 75 MG TABLET Take 75 mg by mouth once donald* ESCITALOPRAM 10 MG TABLET Take 10 mg by mouth once donald* SYNTHROID 125 MCG TABLET Take 125 mcg by mouth once da* BUDESONIDE-FORMOTEROL HFA 160* Inhale 2 Puffs as instructed * ALBUTEROL SULFATE HFA 90 MCG/* Inhale 2 Puffs as instructed * ASPIRIN 81 MG TABLET,DELAYED * Take 81 mg by mouth once donald* LORATADINE-PSEUDOEPHEDRINE ER* Take 1 tablet by mouth once d* * OTC PRODUCT Vitamin D twice weekly. Patie* * OTC PRODUCT Vitamin B12 once daily. Patie* Problem List As Of Date 10/23/2017 Noted Resolved Other specified intestinal obstruction(560.89) *INVALID FOR*05/02/2016 Incisional hernia without mention of obstructio*INVALID FOR*05/02/2016 SUMMARY [V999.95] INVALID FOR* More... Pulmonary embolism, RLL [I26.99] INVALID FOR* More... NSTEMI (non-ST elevated myocardial infarction) *INVALID FOR* More... Abdominal pain, unspecified site [R10.9] INVALID FOR*05/02/2016 Phlebitis and thrombophlebitis of superficial v*INVALID FOR* Varicose veins of leg with swelling [I83.899] INVALID FOR* Varicose veins of leg with pain [I83.819] INVALID FOR* Thickened endometrium [R93.8] INVALID FOR* PMB (postmenopausal bleeding) [N95.0] INVALID FOR* Prescriptions ordered this encounter Disp Refills Start End IBUPROFEN 600 MG TABLET 20 t* 1 10/23/2017 Route: ORAL Sig: Take 1 tablet by mouth every 6 hours as needed. FOR PAIN. HYDROCODONE 5 MG-ACETAMINOPHEN 325 M* 8 ta* 0 10/23/2017 10/26/2017 Class: Print RX Route: ORAL Sig: Take 1-2 tablets by mouth every 8 hours as needed for Pain for up to 3 days. MISOPROSTOL 200 MCG TABLET 4 ta* 0 10/23/2017 10/24/2017 Route: VAGINAL Sig: Use 2 tablets vaginally as directed for [address] 2 tablets vaginally qhs before the procedure and 2 the morning of Medications Discontinued During This Encounter atorvastatin (LIPITOR) 80 mg tablet 4 08/28/2016 10/23/2017 Class: Historical Med Route: ORAL Sig: Take 80 mg by mouth daily at bedtime. Disc: Reason for discontinue is not on file. Encounter Status:Closed by JEREMIE MASON MD on 10/23/17 VENOUS DUPLEX LOWER Observed: 10/02/2017 Status: F Source: [place] 3:09 PM [facility] REPOSITORY [facility] Cardiovascular Services [address] [place] [address] Venous Duplex US - Panda Extrem 10/02/17 1307 MR#: [id number] Acct: [id number] Name: MARIAELENA FORMAN Rep #: [id number] : 1970 47 From: Gerard Ford MD Attending Dr: Sho Lozano DO Status: REG CLI Ordering Dr: Sho Lozano DO Date: 10/02/17 Location: CVS Sex: F C Admitted: Reason For Study: SOB RIGHT LEFT GSV is normal. GSV is normal. CFV is compressible, spontaneous, phasic, CFV is compressible, spontaneous, phasic, competent and demonstrates normal competent, and demonstrates normal augmentation. augmentation. FV is compressible, spontaneous, phasic, FV is compressible, spontaneous, phasic, competent and demonstrates normal competent and demonstrates normal augmentation. augmentation. POP V is compressible, spontaneous, phasic, POP V is compressible, spontaneous, phasic, competent and demonstrates normal competent and demonstrates normal augmentation. augmentation. T/P Trunk is compressible. T/P Trunk is compressible. PTV is compressible. PTV is compressible. RT PerV is compressible. LT PerV is compressible. Procedure Rt and Left Prox Cathy V are difficult to Exam performed in department. visualize. A preliminary report was called and/or faxed to Dr Lozano. Interpretation Summary Deep veins of the lower extremities are bilaterally patent and compressible segmentally. There is no evidence of deep vein thrombosis on either side. Valvular competence appears intact within the proximal deep venous systems bilaterally. The greater saphenous veins appear bilaterally patent and compressible segmentally. Peroneal veins were not well visualized on either side. Ordering Physician: Sho Lozano Referring Physician: Sho Lozano Performed By: Lucy Stone, RDCS, RVT 10/02/17 1508 Date Gerard Ford MD CC: Sho Lozano DO Date Dictated: 10/02/17 1307 Date Transcribed: 10/02/17 1508 Investigative Writer: Signed CHEST PA AND LATERAL Observed: 10/02/2017 Status: F Source: [place] 1:41 PM [facility] REPOSITORY [facility] Imaging Services [address] [place] [id number] Chest PA and Lateral MR#: [id number] Acct: [id number] Name: MARIAELENA FORMAN Rep #: [id number] : 1970 F 47 From: Arthur Sandhu MD PCP: Sho Lozano DO Status: REG CLI Study: Chest PA and Lateral Date of Exam: 10/02/17 Exam# [id number] Ordering Dr: Sho Lozano DO STUDY: X-RAY CHEST REASON FOR EXAM: Female, 47 years old. Short of breath TECHNIQUE: Frontal and lateral view of the chest. COMPARISON: 04-08-15 FINDINGS: The lungs are clear and expanded. There is no demonstrated pleural abnormality. Normal size heart. Normal mediastinum and ian. Normal visualized pulmonary arteries. Normal visualized aortic arch and descending thoracic aorta. There are diffuse degenerative changes of the visualized thoracic spine. Normal visualized ribs, clavicles, and shoulders. There is no demonstrated abnormality of the visualized soft tissue structures of the upper abdomen. RAD/Chest PA and Lateral IMPRESSION: There are no acute findings in the chest. Electronically Signed: Arthur Sandhu MD at 16:49 EDT , Service support , CC: Sho Lozano DO Investigative Writer: Signed PROGRESS Observed: 10/01/2017 Status: COMPLETED Source: [place] 6:00 PM [facility] REPOSITORY HNO ID: [id number] Author: Lukas Kaplan Service: (none) Author Type: Physician Type: Progress Notes Filed: 10/01/2017 6:03 PM Note Text: A normal sized axial uterus with the measurements shown below. The endometrial echo measures 9.2 mm. The endometrial cavity is not well visualized. The myometrium appears normal. The ovaries are not visualized There is no fluid in the cul de sac IMPRESSION: Thickened endometrium in a postmenopausal woman RECOMMENDATIONS: Endometrial histopathological study/hysteroscopy CBC Collected: 09/30/2017 Status: F Source: [place] 12:55 PM [facility] REPOSITORY TYPE CODE TESTS RESULT OUT OF REFERENCE UNITS RANGE LAB WBC 3.70-11.00 k/uL WBC 8.69 LAB RBC 3.90-5.20 m/uL RBC 4.38 LAB HGB 11.5-15.5 g/dL Hemoglobin 13.7 LAB HCT 36.0-46.0 % Hematocrit 43.9 LAB MCV 80.0-100.0 fL MCV High 100.2 LAB MCH 26.0-34.0 pG MCH 31.3 LAB MCHC 30.5-36.0 g/dL MCHC 31.2 LAB RDWCV 11.5-15.0 % RDW-CV 13.5 LAB PLTCT 150-400 k/uL Platelet High Count 484 LAB MPV 9.0-12.7 fL MPV 11.2 LAB ABSNUC <0.01 k/uL Absolute High nRBC 0.02 Performed By: #### CBC, FSH #### [facility] [address] [place], [place] [address] #### EST #### [address] [address] [phone] FSH Collected: 09/30/2017 Status: F Source: [place] 12:55 PM [facility] REPOSITORY TYPE CODE TESTS RESULT OUT OF RANGE REFERENCE UNITS LAB FSH mU/mL FSH 30.9 Result Comment: Reference range: Follicular: 2-11 Midcycle: 10-30 Luteal: 1-9 Post [place]: 20-100 Performed By: #### CBC, FSH #### [facility] [address] [place] [address] #### EST #### [address] [address] [phone] ESTRONE Collected: 09/30/2017 Status: F Source: [place] 12:55 PM [facility] REPOSITORY TYPE CODE TESTS RESULT OUT OF REFERENCE UNITS RANGE LAB EST pg/mL Estrone 34.2 Result Comment: (NOTE) Females: Pre-menopausal: Early follicular <150.0 pg/mL Pre-menopausal: Late follicular 100.0-250.0 pg/mL Pre-menopausal: Luteal <200.0 pg/mL Post-menopausal 3.0-32.0 pg/mL REFERENCE INTERVAL: Estrone by TMS Access complete set of age- and/or gender-specific reference intervals for this test in the [facility] Test [facility] ([facility]). Test developed and characteristics determined by [facility]. See Compliance Statement B: [facility]/ Performed by [facility], [address] [place] [address] [id number] [email or web address], [email or web address] Martino MD, Lab. Director Performed By: #### CBC, FSH #### [facility] [address] [id number] #### EST #### [address] [id number] [phone] SURGICAL PATHOLOGY Observed: 09/30/2017 Status: F Source: [place] 12:22 PM [facility] REPOSITORY Specimen originated from [facility] Specimen #: [id number] Submitting Physician: JEREMIE MASON M.D. ([email or web address]) FINAL DIAGNOSIS Endometrium, biopsy - Segments of partially infarcted endometrial polyp, superficial endometrial epithelium with breakdown, and endocervical tissue. MJM/srfermin 10/02/2017 Randy Gaines M.D. (Electronic Signature) SPECIMEN SUBMITTED A: ENDOMETRIAL, BIOPSY CLINICAL DATA abnormal uterine bleeding GROSS DESCRIPTION Received in formalin are multiple brown soft feathery segments of tissue admixed with mucinous material aggregating to 2.4 x 2.3 x 0.5 cm. Totally submitted in one cassette. Gross examination performed at [facility], [address] [place] [address] 10/01/2017 12:59:36 AM Date of Report: 10/02/2017 Date of Procedure: 09/30/2017 Date of Receipt: 09/30/2017 Submitted by: JEREMIE MASON M.D. ([email or web address]) Location: [place] Diagnostic interpretation performed at [facility], [address] [place] [address]. PROGRESS Observed: 09/30/2017 Status: COMPLETED Source: [place] 11:41 AM [facility] REPOSITORY HNO ID: [id number] Author: Jeremie Mason Service: (none) Author Type: Physician Type: Progress Notes Filed: 09/30/2017 12:23 PM Note Text: Mariaelena Tyler is a 47 year old female who presents for problem visit for vaginal bleeding. HPI: 47 YOF notes wt gain, bloating, vaginal bleeding. Had vaginal bleeding some bright red. Has never had periods due to chemo as a child for hodgkins lymphoma as a child. Was on hormone therapy from teen years to about 2006 when had PE and then has been off. Never had menses w/ premarin and provera in the past. Has had to wear a pad is more than spotting at times. Started 6 days ago. Pap and HRHPV neg 2016 PAST MEDICAL HISTORY Diagnosis Date - Allergic rhinitis I'm allergic to everything. Dr. Overton tested, allergy shots long time, stopped 4-5 years ago. - Asthma Exercise induced diagnosed as adult, Rx ProAir. Symbicort added within last 2-4 years. - CVA (cerebral vascular accident) ([facility]) 07/26/2016 Right frontal lobe-posterior - Hodgkin's disease, unspecified type 1978 XRT (cobalt source) mantle, and chemoRx. - NSTEMI (non-ST elevated myocardial infarction) ([facility]) 2010 Patient denies. Attributed to PFO confirmed by RHC. - KHUSHBU on CPAP AutoPAP. - PFO (patent foramen ovale) Confirmed by RHC. - PMH - PAST MEDICAL HISTORY OF 10/05 adhesions - Pulmonary embolism ([facility]) 2010 PAST SURGICAL HISTORY Procedure Laterality Date - APPENDECTOMY 1992 - COLONOSCOPY W/BX 05-19-15 - [facility]-19[facility]15 - L'SCOPE DX W/WO BRUSHINGS/WASHINGS 1987 Laparoscopy - PAST SURGICAL HISTORY OF lumpectomy x 2 - PAST SURGICAL HISTORY OF 1978 Staging splenectomy with Hodgkin's Dx. 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 Father pipe smoker in childhood home, and at work. Alcohol use: Yes Comment: Very rarely. Drug use: No Sexual activity: No Current Outpatient Prescriptions: montelukast (SINGULAIR) 10 mg tablet Take 1 tablet by mouth daily at bedtime. clopidogrel (PLAVIX) 75 mg tablet Take 75 mg by mouth once daily. atorvastatin (LIPITOR) 80 mg tablet Take 80 mg by mouth daily at bedtime. escitalopram oxalate (LEXAPRO) 10 mg tablet Take 10 mg by mouth once daily. SYNTHROID 125 mcg tablet Take 125 mcg by mouth once daily. budesonide-formoterol (SYMBICORT) 160-4.5 mcg/actuation inhaler Inhale 2 Puffs as instructed twice daily. albuterol HFA (PROAIR HFA) 90 mcg/actuation inhaler Inhale 2 Puffs as instructed every 6 hours as needed. aspirin, enteric coated (ASPIRIN, ENTERIC COATED) 81 mg EC tablet Take 81 mg by mouth once daily. loratadine-pseudoephedrine 24hr 10-240 mg (CLARITIN-D 24 HOUR) 10-240 mg Tb24 Take 1 tablet by mouth once daily as needed. OTC PRODUCT Vitamin D twice weekly. Patient unsure of dose. OTC PRODUCT Vitamin B12 once daily. Patient unsure of dose. No current facility-administered medications for this visit. Allergies As of Date: 09/30/2017 Allergen Noted Reaction CONTRAST DYE [IODINE] 04/25/2012 Hives VICODIN [HYDROCODONE-ACETAMINOPHE*01/17/2011 GI Upset ALLERGIES [OTHER] 08/22/2005 Intolerance MOBIC [MELOXICAM] 01/17/2011 Hives Fully Assessed 07/16/2017 REVIEW OF SYSTEMS Abdomen: some bloating, no change in BM Bladder: No dysuria, gross hematuria, urinary frequency, urinary urgency, or incontinence. Allergies and current medication updated:Yes EXAM: There were no vitals taken for this visit. GENERAL: pleasant, female in no apparent distress HEENT: Normocephalic, atraumatic, mucus membranes moist and no lesions NECK: Supple, full range of motion, no adenopathy and thyroid normal DERMATOLOGY: Normal, without lesions, non-icteric and non-hirsute BREAST: soft, non-tender, symmetric, no dominant mass, normal nipple-areolar complex, no lymphadenopathy and no nipple discharge CHEST: Normal inspiratory effort ABDOMEN: soft, non-tender, no masses, rebound Absent, guarding Absent and pannus large PELVIC: external genitalia normal, normal Bartholin's glands, urethra, Cateechee's glands, no vulvar lesions, no cervical lesions, good vaginal support, physiologic discharge present, normal appearing perineal body and perianal region, small cervix, small amount of dark red blood in vault, no active bleeding from cervical os BIMANUAL: uterus normal size, shape and consistency, no adnexal masses, non-tender and limited by habitus ASSESSMENT AND PLAN: pmb US + onlyfor blood but since has vaginal bleeding, no signif. concern there. MD Ghassan Thaoene Flaquito Tyler is a 47 year old female who presents today for an endometrial biopsy for post menopausal bleeding. test: n/a UNIVERSAL PROTOCOL / SAFETY CHECKLIST Procedure to be performed: EMB Sign in Communication: Completed Time Out: Team Confirms the Correct Patient, Correct Procedure, Correct Site and Site Marking, Correct Position (if applicable), Prep and Dry Time (if applicable). Time: 1212 Affirmation of Time Out: YES Sign Out Discussion: Completed Jeremie Mason MD PROCEDURE: EXTERNAL GENITALIA: Normal in appearance without lesions VAGINA: Normal in appearance without lesions BIOPSY: Speculum placed into the vagina with excellent visualization of the cervix. Cervix cleaned with betadine. Anterior lip of cervix grasped with single toothed tenaculum. Uterus sounded to 10 cm. Pipelle inserted into the uterus without difficulty and endometrial biopsy obtained. Specimen labeled and sent to pathology. Procedure Summary: Patient tolerated procedure well. ASSESSMENT: post menopausal bleeding PLAN: Specimens labeled and sent to Pathology. Will notify patient of results in 1-2 weeks. Post-procedure instructions reviewed and written material given to the patient. Check US of pelvis as well up to date on pap/mammogram and colonoscopy Jeremie Mason MD CNOV Observed: 09/30/2017 Status: COMPLETED Source: [place] 11:40 AM [facility] REPOSITORY Office Visit (WOOB) MARIAELENA FORMAN ([id number]) 1970 F Date Time Provider Department 09/30/17 11:40 AM JEREMIE MASON WOOB During your visit today, we recorded the following information about you: Blood pressure Weight 170/98 188.7 kg Jeremie Mason MD 09/30/2017 12:23 PM Signed Mariaelena Tyler is a 47 year old female who presents for problem visit for vaginal bleeding. HPI: 47 YOF notes wt gain, bloating, vaginal bleeding. Had vaginal bleeding some bright red. Has never had periods due to chemo as a child for hodgkins lymphoma as a child. Was on hormone therapy from teen years to about 2006 when had PE and then has been off. Never had menses w/ premarin and provera in the past. Has had to wear a pad is more than spotting at times. Started 6 days ago. Pap and HRHPV neg 2016 PAST MEDICAL HISTORY Diagnosis Date - Allergic rhinitis I'm allergic to everything. Dr. Overton tested, allergy shots long time, stopped 4-5 years ago. - Asthma Exercise induced diagnosed as adult, Rx ProAir. Symbicort added within last 2-4 years. - CVA (cerebral vascular accident) ([facility]) 07/26/2016 Right frontal lobe-posterior - Hodgkin's disease, unspecified type 1978 XRT ([place]obalt source) mantle, and chemoRx. - NSTEMI (non-ST elevated myocardial infarction) ([facility]) 2010 Patient denies. Attributed to PFO confirmed by RHC. - KHUSHBU on CPAP AutoPAP. - PFO (patent foramen ovale) Confirmed by RHC. - PMH - PAST MEDICAL HISTORY OF 10/05 adhesions - Pulmonary embolism ([facility]) 2010 PAST SURGICAL HISTORY Procedure Laterality Date - APPENDECTOMY 1992 - COLONOSCOPY W/BX 05-19-15 - EGD W/O [facility] SPECIMEN W/BX 05-19-15 - L'SCOPE DX W/WO BRUSHINGS/WASHINGS 1987 Laparoscopy - PAST SURGICAL HISTORY OF lumpectomy x 2 - PAST SURGICAL HISTORY OF 1978 Staging splenectomy with Hodgkin's Dx. 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 Father pipe smoker in childhood home, and at work. Alcohol use: Yes Comment: Very rarely. Drug use: No Sexual activity: No Current Outpatient Prescriptions: montelukast (SINGULAIR) 10 mg tablet Take 1 tablet by mouth daily at bedtime. clopidogrel (PLAVIX) 75 mg tablet Take 75 mg by mouth once daily. atorvastatin (LIPITOR) 80 mg tablet Take 80 mg by mouth daily at bedtime. escitalopram oxalate (LEXAPRO) 10 mg tablet Take 10 mg by mouth once daily. SYNTHROID 125 mcg tablet Take 125 mcg by mouth once daily. budesonide-formoterol (SYMBICORT) 160-4.5 mcg/actuation inhaler Inhale 2 Puffs as instructed twice daily. albuterol HFA (PROAIR HFA) 90 mcg/actuation inhaler Inhale 2 Puffs as instructed every 6 hours as needed. aspirin, enteric coated (ASPIRIN, ENTERIC COATED) 81 mg EC tablet Take 81 mg by mouth once daily. loratadine-pseudoephedrine 24hr 10-240 mg (CLARITIN-D 24 HOUR) 10-240 mg Tb24 Take 1 tablet by mouth once daily as needed. OTC PRODUCT Vitamin D twice weekly. Patient unsure of dose. OTC PRODUCT Vitamin B12 once daily. Patient unsure of dose. No current facility-administered medications for this visit. Allergies As of Date: 09/30/2017 Allergen Noted Reaction CONTRAST DYE [IODINE] 04/25/2012 Hives VICODIN [HYDROCODONE-ACETAMINOPHE*01/17/2011 GI Upset ALLERGIES [OTHER] 08/22/2005 Intolerance MOBIC [MELOXICAM] 01/17/2011 Hives Fully Assessed 07/16/2017 REVIEW OF SYSTEMS Abdomen: some bloating, no change in BM Bladder: No dysuria, gross hematuria, urinary frequency, urinary urgency, or incontinence. Allergies and current medication updated:Yes EXAM: There were no vitals taken for this visit. GENERAL: pleasant, female in no apparent distress HEENT: Normocephalic, atraumatic, mucus membranes moist and no lesions NECK: Supple, full range of motion, no adenopathy and thyroid normal DERMATOLOGY: Normal, without lesions, non-icteric and non-hirsute BREAST: soft, non-tender, symmetric, no dominant mass, normal nipple-areolar complex, no lymphadenopathy and no nipple discharge CHEST: Normal inspiratory effort ABDOMEN: soft, non-tender, no masses, rebound Absent, guarding Absent and pannus large PELVIC: external genitalia normal, normal Bartholin's glands, urethra, Cateechee's glands, no vulvar lesions, no cervical lesions, good vaginal support, physiologic discharge present, normal appearing perineal body and perianal region, small cervix, small amount of dark red blood in vault, no active bleeding from cervical os BIMANUAL: uterus normal size, shape and consistency, no adnexal masses, non-tender and limited by habitus ASSESSMENT AND PLAN: pmb US + onlyfor blood but since has vaginal bleeding, no signif. concern there. Jeremie Mason MD Mariaelena Tyler is a 47 year old female who presents today for an endometrial biopsy for post menopausal bleeding. test: n/a UNIVERSAL PROTOCOL / SAFETY CHECKLIST Procedure to be performed: EMB Sign in Communication: Completed Time Out: Team Confirms the Correct Patient, Correct Procedure, Correct Site and Site Marking, Correct Position (if applicable), Prep and Dry Time (if applicable). Time: 1212 Affirmation of Time Out: YES Sign Out Discussion: Completed Jeremie Mason MD PROCEDURE: EXTERNAL GENITALIA: Normal in appearance without lesions VAGINA: Normal in appearance without lesions BIOPSY: Speculum placed into the vagina with excellent visualization of the cervix. Cervix cleaned with betadine. Anterior lip of cervix grasped with single toothed tenaculum. Uterus sounded to 10 cm. Pipelle inserted into the uterus without difficulty and endometrial biopsy obtained. Specimen labeled and sent to pathology. Procedure Summary: Patient tolerated procedure well. ASSESSMENT: post menopausal bleeding PLAN: Specimens labeled and sent to Pathology. Will notify patient of results in 1-2 weeks. Post-procedure instructions reviewed and written material given to the patient. Check US of pelvis as well up to date on pap/mammogram and colonoscopy Jeremie Mason MD Referring Provider: SELF [200] Allergies As of Date: 09/30/2017 Noted Allergy Reaction CONTRAST DYE (IODINE) 04/25/2012 4 - Hives VICODIN (HYDROCODONE-ACETAMINOPHE*01/17/2011 8 - GI Upset allergies [Other] 08/22/2005 5 - Intolerance Comments: seasonal MOBIC (MELOXICAM) 01/17/2011 4 - Hives Date Reviewed: 09/30/2017 Reviewed by: Jeremie Mason - Fully Assessed Reason for Visit: Abdominal Pain [1] Primary Visit Diagnosis:PMB (postmenopausal bleeding) [N95.0] Other Visit Diagnosis:Pelvic pain in female [R10.2] Order(s):UA DIP B/O [[id number]] Order #: [id number] SURGICAL PATHOLOGY [[id number]] Order #: [id number] ENDOMETRIAL BIOPSY [[id number]] Order #: [id number] PELVIC US WHI [[id number]] Order #: [id number]: 1 CBC [SQCBC] Order #: [id number] FUTURE FSH BLD [SQFSH] Order #: [id number] FUTURE ESTRONE BLD [SQEST] Order #: [id number] FUTURE Prescriptions as of 09/30/2017 Sig: MONTELUKAST 10 MG TABLET Take 1 tablet by mouth daily * CLOPIDOGREL 75 MG TABLET Take 75 mg by mouth once dnoald* ATORVASTATIN 80 MG TABLET Take 80 mg by mouth daily at * ESCITALOPRAM 10 MG TABLET Take 10 mg by mouth once donald* SYNTHROID 125 MCG TABLET Take 125 mcg by mouth once da* BUDESONIDE-FORMOTEROL HFA 160* Inhale 2 Puffs as instructed * ALBUTEROL SULFATE HFA 90 MCG/* Inhale 2 Puffs as instructed * ASPIRIN 81 MG TABLET,DELAYED * Take 81 mg by mouth once donald* LORATADINE-PSEUDOEPHEDRINE ER* Take 1 tablet by mouth once d* * OTC PRODUCT Vitamin D twice weekly. Patie* * OTC PRODUCT Vitamin B12 once daily. Patie* Problem List As Of Date 09/30/2017 Noted Resolved Other specified intestinal obstruction(560.89) *INVALID FOR*05/02/2016 Incisional hernia without mention of obstructio*INVALID FOR*05/02/2016 SUMMARY [V999.95] INVALID FOR* More... Pulmonary embolism, RLL [I26.99] INVALID FOR* More... NSTEMI (non-ST elevated myocardial infarction) *INVALID FOR* More... Abdominal pain, unspecified site [R10.9] INVALID FOR*05/02/2016 Phlebitis and thrombophlebitis of superficial v*INVALID FOR* Varicose veins of leg with swelling [I83.899] INVALID FOR* Varicose veins of leg with pain [I83.819] INVALID FOR* Encounter Status:Closed by JEREMIE MASON MD on 09/30/17 MA MAMMOGRAM SCREENING Observed: 08/27/2017 Status: F Source: [facility] W/JULIA 1:00 PM FOUNDATION REPOSITORY ORIGINAL FROM: [place] [address] PROCEDURE FOR: MARIAELENA TYLER [address] [place] [address] Home: Work: PID#: [id number] Exam#: [id number] : 1970 Age: 46 TO: LOLI HAWKINS PUBLIC 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 The tissue of both breasts is predominately fatty. Current study was also evaluated with a Computer Aided Detection (CAD) system. No significant masses, calcifications, or other findings are seen in either breast. There has been no significant interval change. IMPRESSION: NEGATIVE There is no mammographic evidence of malignancy. A 1 year screening mammogram is recommended. MYLA HUERTA MD ab/penrad:08/27/2017 13:30:28 Corner Cutter: GAYE DEUTSCH(Dami)(M), [facility] letter sent: Normal BI-RADS 1&2 Mammogram BI-RADS: 1 Negative ALLERGIES ALLERGIES DATE TYPE / CODE NAME / CODE REACTION SEVERITY SOURCE Drug hydrocodone Rash Unknown [place] 9 Allergy/699794686( bitartrate/F0000 Community SNOMED CT) 16703(RXNORM) Hospital Repository Drug adhesive Rash Unknown [place] 9 Allergy/537843238( tape/F542323215( Community SNOMED CT) RXNORM) Hospital Repository Drug meloxicam/J32102 Rash Unknown [place] 9 Allergy/272028813( 6272(RXNORM) Community SNOMED CT) Hospital Repository Drug latex/S087897056 Rash Unknown [place] 9 Allergy/082534434( (RXNORM) Community SNOMED CT) Hospital Repository DRUG IODINE HIVES [place] INGREDI/864154897( Clinic Main SNOMED CT) [place] Repository DRUG/274914209(SNO HYDROCODONE-ACET GI UPSET [facility] [place] [address]) AMINOPHEN Clinic Main [place] Repository DRUG MELOXICAM HIV[place] 1 INGREDI/792980414( [facility] Main SNOMED CT) [place] Repository Miscellaneous OTHER INTOLERANCE [place] 6 Allergy/525767491( [facility] Main SNOMED CT) [place] Repository ENCOUNTERS ENCOUNTERS ADMIT/DISCHARGE ACCOUNT NUMBER ADMITTING ENCOUNTER LOCATION SOURCE CLASS 03/26/2018/03/26/19 [id number] Emergency [address] ding:ED Repository 03/20/2018 [id number] Ambulatory ABuilding:[facility] Repository 02/14/2018 [id number] Ambulatory Building:[facility] [place] Practices Repository 01/09/2018/01/10/20 [id number] Ambulatory [address] Repository 01/09/2018/01/10/20 [id number] Ambulatory [address] Repository 01/09/2018/01/11/20 [id number] Ambulatory [address] Repository 12/04/2017 [id number] Ambulatory [facility] ding:[facility] Repository 11/19/2017/11/21/19 [id number] Ambulatory [address] Repository 11/11/2017/11/12/19 [id number] Emergency [address] ding:ED Repository 10/31/2017/11/01/19 [id number] Ambulatory [address] ding:SDC Repository 10/23/2017/10/25/19 [id number] Ambulatory [address] Repository 10/02/2017 [id number] Ambulatory [place] Sharri [facility] ding:[facility]S Repository 10/01/2017/10/03/19 [id number] Ambulatory [address] Repository 09/30/2017/10/01/19 [id number] Ambulatory [address] Repository 09/30/2017/10/02/19 [id number] Ambulatory [address] Repository 08/27/2017/08/28/19 [id number] Ambulatory [place] [address] ing:[facility] hospital Repository PAYERS PAYERS ENCOUNTER GUARANTOR PAYER SUBSCRIBER SOURCE 03/26/2018 MARIAELENA L [place] Primary MARIAELENA L [facility] [id number] ИРИНА [facility] [place] icy Number: [id number] [address]Wrm: 330 [id number] Repository [phone] () Date:[id number] [address]VO: 03/26/2018 Secondary [facility] Insurance:SELF PAY [facility] Number: Effective Repository Date:2018-03-26 03/20/2018 MARIAELENA L SHADE Primary MARIAELENA L [facility] CLARKDOB: [facility] PRAVEENDOB: [facility] [id number] Number: [id number] Repository [facility], [id number] [facility] Date:2018-03-20 [place] [address]~[id number]@ [id number] 565[address]Weq: ([phone]) GMSUNI.Donato: 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 [phone] [place] [address] ()Tel: [phone] (ZR) [phone]: [phone] 03/20/2018 Secondary [facility] Insurance:[facility]: [facility] P65Vpgjww Number: [id number] Repository [id number] [facility] Date:2018-03-20 [place] 1321-78-14Dwsf [address]Pso: ([phone]) 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 [phone] [place] [address] (HP)Tel: [phone]: (wp) [phone] 02/14/2018 Mariaelena L [place] Primary Mariaelena L [place] OHIP Practices ClarkDOB: [facility] PraveenB: Repository [id number] icy Number: [id number] [address] [facility], [id number] 9 [place] [address]Lrg: Date:8767-23-25[address], [place] Name:[address] [address]Koc: (330) (HP)Tel: [phone] [place] [address] [phone] (HP) [phone] (WP) [id number]: 02/14/2018 Secondary Shari GmB: OHIP Practices Insurance:[facility] [id number] Repository icy Number: 9 [address] [id number] [facility], [place] Date:7400-13-26Xqsz [address]Akx: ([phone]) Name:[phone] (HP) [address] [place] [address] [id number]: 02/14/2018 Tertiary Mariaelena L Sh[place] OHIP Practices Insurance:Aury WorrellB: Repository /[facility] Number: [id number] Radha Gonzales Date: - [place], [place] [id number] [address]Wog: (330) Name:[phone] (HP) [id number], [place] [id number]: 02/14/2018 Tertiary Mariaelena L Sh[place] OHIP Practices Insurance:Chris Morley: Repository [facility] [id number] Number: Radha Gonzales [id number] [place], [place] Date:2007-09-02 - [address]Awj: [phone]) [id number] [phone] (HP) Name:[address], [place] [phone]: 12/04/2017 Mariaelena L [place] Primary MARIAELENA L SHADE Sharri [id number] [address] Insurance:[facility] CLARKDOB: [place], [place] icy Number: [id number] [address]Fnv: (662) [id number] Repository [phone] (HP) Date:[id number] [address]HK: 12/04/2017 Secondary SHARI CLARKDOB: [place] Insurance:AULTCAREPol [id number] Community icy Number: Hospital [id number] Repository Date:[id number] [address]MF: 12/04/2017 Tertiary NOT GIVENUNK Sharri Insurance:SELF PAY [facility] Number: Effective Repository Date:2017-12-04 11/11/2017 Mariaelena L [place] Primary MARIAELENA L SHADE [place] [id number] [place] Insurance:AULTCAREPol CLARKDOB: [place] icy Number: [id number] Hospital [address]Uun: [phone] [id number] Repository [phone] (HP) Date:[id number] [address]NY: 11/11/2017 Secondary SHARI CLARKDOB: [place] Insurance:AULTCAREPol [id number] Community icy Number: Hospital [id number] Repository Date:[id number] [address]GO: 11/11/2017 Tertiary NOT GIVENUNK [place] Insurance:SELF PAY [facility] Number: Effective Repository Date:2017-11-11 10/31/2017 Mariaelena L Shade Primary MARIAELENA L SHADE [place] [id number] Ирина Insurance:AULTCAREPol CLARKDOB: [place] icy Number: [id number] Hospital [address]74[address]Hiy: [phone] [id number] Repository [phone] (HP) Date:9229-28-45QC [address] [place] [id number]: 10/31/2017 Secondary SHARI CLARKDOB: [place] Insurance:AULTCAREPol [id number] Community icy Number: Hospital [id number] Repository Date:1726-07-61EX [address] [place] [address]ZC: 10/31/2017 Tertiary NOT GIVENUNK [place] Insurance:SELF PAY [facility]: Effective Repository Date:2017-10-07 10/02/2017 Mariaelena L Shade Primary MARIAELENA L SHADE [place] [id number] [facility] [place] icy Number: [id number] Hospital [address]Nhj: ([phone] [id number] Repository [phone] () Date:1740-15-62WM [address] [place] [id number]: 10/02/2017 Secondary SHARI CLARKDOB: [place] Insurance:AULTCAREPol [id number] [facility] icy Number: Hospital [id number] Repository Date:7199-82-83UR [address] [place] [address]VE: 10/02/2017 Tertiary NOT GIVENUNK [place] Insurance:SELF PAY [facility] Number: Effective Repository Date:2017-10-02 08/27/2017 MARIAELENA L SHADE Primary MARIAELENA L SHADE [facility] CLARKDOB: Insurance:AULTCARE QUINAULTDOB: [facility] [id number] Number: [id number] Repository [facility], [id number] [address] [place] [address] Date:2017-03-14 [place] [address]~[id number]@ [id number] [id number]: [phone]) Joey: Name:[facility] [phone] [place] [address] ()Tel: [phone]: [phone] 08/27/2017 [facility] [id number] Number: [id number] Repository [id number] ИРИНА Date:2017-03-14 [place] [id number] [id number]: [phone] 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Christal VACA [phone] [address], [place] ()Tel: [phone]: [phone]
== END 2018-03-26 10:31 | disposition home or self-care (01) ==
PROVIDERS: Emergency Provider Emergency Medicine; Family Provider Internal Medicine; PCP Internal Medicine
DX: S91.011A Laceration without foreign body, right ankle, initial encounter (principal); I83.91 Asymptomatic varicose veins of right lower extremity; W26.8XXA Contact with other sharp object(s), not elsewhere classified, initial encounter; Y93.E8 Activity, other personal hygiene; Y92.9 Unspecified place or not applicable; Y99.9 Unspecified external cause status; Z79.02 Long term (current) use of antithrombotics/antiplatelets; Z79.82 Long term (current) use of aspirin; Z79.899 Other long term (current) drug therapy; Z86.73 Personal history of transient ischemic attack (TIA), and cerebral infarction without residual deficits; Z86.711 Personal history of pulmonary embolism; Z85.71 Personal history of Hodgkin lymphoma
CPT/HCPCS: 90715; 99283

== ENCOUNTER 2019-07-31 07:20 | Emergency (ER) | payer OTHER, SELFPAY ==
[2019-07-31 07:21] VITALS: BP 149/100; PULSE 72; RESP 20; TEMP 36.4; O2SAT 95; BMI 53.9
--- NOTE | 2019-07-31 07:39 | VDLE_ITS ---
Reason For Study: PAIN RIGHT FV is compressible, spontaneous, phasic, competent and demonstrates normal augmentation. POP V is compressible, spontaneous, phasic, competent and demonstrates normal augmentation. T/P Trunk is compressible. PTV is compressible. RT PerV is compressible. Rt GSV is DILATED and NONCOMPRESSIBLE from proximal thigh to distal calf. Procedure Exam performed portable in ED. Technically difficult study due to body habitus. CFV only visualized with color and augments normally. POP V augmented in transverse due to body habitus. Interpretation Summary Deep veins of the right lower extremity are patent and compressible segmentally. There is no evidence of right lower extremity deep vein thrombosis. Valvular competence appears intact within the proximal deep venous system on the right . Acute superficial thrombophlebitis is noted in the right great saphenous vein from the proximal thigh to the distal calf. Ordering Physician: Catalino Heller Referring Physician: KAYKAY LEVY Performed By: Lucy Stone, IRVIN, RVT
--- NOTE | 2019-07-31 07:40 | ED.VIS.GEN ---
History of Present Illness Chief Complaint: Edema Informant: Patient Onset: 06-08 Context: Gradual Onset Timing: Continuous Quality: sore Location: right lower leg Current Severity: Mild Maximum Severity: Mild Worsened by: palpation Relieved by: leaving alone Associated Symptoms: chest pressure, sob x 1-2 wks Narrative: Patient states she has a history of DVT, PE, and a small stroke. She has some difficulty thinking sometimes but otherwise has no residual deficits from her stroke. She is on clopidogrel because of all of that. She is on no anticoagulants. She saw some redness that is sore on her right leg, it is around an old biopsy site, and with her history of clots was concerned and wanted to make sure she did not have another one. She has seasonal allergies and asthma, states that her allergies have been kicked up recently because of the weather and the spring, and her chest pressure and dyspnea that have both been mild in the last week or 2, consistently, have improved with albuterol treatments which she does not use very often. She has been using her maintenance inhalers, however. She denies any fevers. She has some chronic mild nonproductive coughing, no change in that. - Past Medical History (1) Pulmonary embolism Status: Resolved (2) DVT (deep venous thrombosis) Status: Resolved (3) CVA (cerebral vascular accident) Status: Chronic (4) Acquired hypothyroidism Status: Chronic (5) Asthma Status: Chronic (6) History of Hodgkin's disease Status: Chronic (7) KHUSHBU (obstructive sleep apnea) Status: Chronic (8) Patent foramen ovale Status: Chronic Past Medical History - Allergies and Home Meds Allergies/Adverse Reactions: Allergies adhesive tape Allergy (Verified 07/31/19 07:23) Rash hydrocodone bitartrate [From Vicodin] Allergy (Verified 07/31/19 07:23) Rash latex Allergy (Verified 07/31/19 07:23) Rash meloxicam Allergy (Verified 07/31/19 07:23) Rash Primary Care Physician: Sho Lozano DO [Primary Care Provider] - Smoking Status: Never smoker Drugs: None - Family History Maternal Family History: Reports: - - Parkinson's Review of Systems General: Denies: Chills, Fever, Sweats Eyes: Denies: Visual changes - bilaterally, Diplopia ENT: Denies: Rhinorrhea, Sore throat Cardiovascular: Reports: Chest pain. Denies: Palpitations, Heart racing Respiratory: Reports: Dyspnea, Cough, Dyspnea on exertion. Denies: Sputum, Orthopnea Gastrointestinal: Denies: Abdominal pain, Nausea, Vomiting, Diarrhea, Melena, Hematochezia Genitourinary: Denies: Dysuria, Hematuria, Frequency Musculoskeletal: Reports: Swelling - Chronic bilateral lower extremities, unchanged, Extremity Pain. Denies: Neck pain, Back pain Skin: Denies: Rash, Wounds Neurological: Denies: Headache, Weakness, Numbness Physical Exam Vital Signs/Narrative: Vital Signs Temp Pulse Resp BP Pulse Ox 07/31/19 07:21 97.5 F L 72 20 H 149/100 H 95 Inital Vital Signs reviewed: Yes General: Well nourished, Well developed, Obese, No Acute Distress - Conversive in full sentences Head: Normocephalic, Atraumatic Eyes: Perrl, EOMI ENT: Moist mucous membranes, No rhinorrhea Neck: Supple, Nontender Cardiovascular: Regular rate, Regular rhythm, No murmurs Respiratory: No distress, CTA bilaterally, Chest nontender Abdomen: Soft, Nontender, Nondistended, Normal bowel sounds Back: Nontender, Normal Inspection Extremities: Nontender, Edema - 1+ bilateral lower extremities to the knees, symmetric. Negative for: Calf Tenderness Skin: Normal color, No Trauma, Rash - Mild blanching erythema medial right calf without lymphangitis, abscess. It is mildly tender. There is a benign-appearing scar that the patient states with the biopsy site near the center of this area. Does not extend distally or proximally. Neurological: Alert, Oriented x3, Cranial nerves II-XII grossly intact, Normal Strength, Normal Sensation, Normal Gait Psychological: Normal affect, Normal Mood Diagnostic/Tx/Re-eval Impressions Chest CTA 07/31/19 09:44 IMPRESSION: Pulmonary emboli in the branches of both the upper and lower lobe bilateral pulmonary arteries. Electronically Signed: Emre Tan, at 11:37 EDT , Service support , 07/31/19 09:44 CTA Chest W/WO Contrast [CT] Stat Laboratory Results 07/31/19 07/31/19 07/31/19 08:10 08:10 08:10 WBC 8.2 RBC 4.43 Hgb 13.8 Hct 42.8 MCV 96.6 MCH 31.2 MCHC 32.2 RDW Std Deviation 45.8 H RDW Coeff of [place] 12.9 Plt Count 476 H MPV 10.7 Immature Gran % (Auto) 0.200 Neut % (Auto) 51.9 Lymph % (Auto) 35.0 [place] % (Auto) 8.2 Eos % (Auto) 3.5 Baso % (Auto) 1.2 H Absolute Neuts (auto) 4.2 Absolute Lymphs (auto) 2.87 Nucleated RBC % 0.2 D-Dimer Quant (PE/DVT) 1.73 H* Sodium 141 Potassium 3.9 Chloride 103 Carbon Dioxide 31.0 Anion Gap 7 BUN 14 Creatinine 0.77 Estim Creat Clear Calc 103.11 Est GFR (MDRD) Af Amer 102 Est GFR (MDRD) Non-Af 85 BUN/Creatinine Ratio 18.1 Glucose 106 Calcium 9.4 Troponin I < 0.015 - Rhythm Strip Rhythm Strip: Sinus Rhythm Rate: 73 Ectopy: None - EKG Initial EKG Interpretation: Sinus Rhythm, No Acute Injury Pattern, - - +S1Q3T3 pattern - Medical Decision Making D-dimer was significantly elevated, ultrasound of the right lower extremity was obtained and shows significant clot throughout the greater saphenous vein all the way to the thigh from the calf. Therefore with her other thoracic symptoms, CT angiography was performed, and it shows peripheral pulmonary emboli in all lobes of both lungs. There is no central pulmonary embolus. Her vital signs are stable, she has no tachycardia or hypoxemia and her pulse ox is room air 100%. She is not dyspneic with walking here objectively. She was told that she may have some fatty liver infiltration, she has had no renal issues. Therefore I think Xarelto would be the best drug to put her on, she was on warfarin in the past. She was given empiric Lovenox 150 mg subcu this morning after her ultrasound resulted, prior to getting CT angiography results. I think she would be fine to start Xarelto today. I feel she can go home and I do not think she needs to be admitted to the hospital. Discussed all this with her and she is comfortable following up with her doctor. We discussed reasons to return. ED Disposition - Plan for ED Patient: Disposition: Home or Assisted Living Diagnosis: Acute deep vein thrombosis of right lower extremity, Pulmonary embolism, bilateral Instructions: ED DVT, Pulmonary Embolism Prescriptions: Rivaroxaban [Xarelto] 1 tab PO UD #51 tab Prescription Printed Referrals: Sho Lozano DO [Primary Care Provider] - 1 Week Additional Instructions: You may discontinue your aspirin and Plavix starting today since you are on full blood thinner. Discuss this and any discrepancies with your doctor.
[2019-07-31] MEDS: Albuterol 2.5 MG/3 ML VIAL.NEB. INHALATION (07:52)
[2019-07-31 07:53] VITALS: PULSE 88; RESP 20
[2019-07-31 08:44] VITALS: BP 149/100; PULSE 88; RESP 20; TEMP 36.4; O2SAT 95
[2019-07-31 09:35] LABS: D-Dimer Quantitative (DVT/PE) 1.73 FEU/ug/m (0.27-0.49)
--- NOTE | 2019-07-31 09:44 | EKG12_ITS ---
Test Reason : Blood Pressure : / mmHG Vent. Rate : 073 BPM Atrial Rate : 073 BPM P-R Int : 200 ms QRS Dur : 116 ms QT Int : 434 ms P-R-T Axes : 047 024 038 degrees QTc Int : 478 ms Normal sinus rhythm Normal ECG Confirmed by DENISE QUIROS ([id number]), book editor PERCY JOHN ([id number]) on 08/03/2019 11:07:45 AM Referred By: JIMI Confirmed By:DENISE QUIROS
--- NOTE | 2019-07-31 09:44 | CT_ITS ---
STUDY: CTA CHEST REASON FOR EXAM: Female, 48 years old. ELEVATED D-DIMER,RT CALF DVT RADIATION DOSAGE (If Supplied By Facility): CTDIvol = ( 11.47 ) mGy, DLP = ( 480.88 ) mGycm TECHNIQUE: The examination was performed with the intravenous administration of 100 CC ISOVUE 370. Post-processing of the angiographic images was performed, with multiplanar reformation and 3D reconstruction. Individualized dose optimization techniques were used for this CT. COMPARISON: Comparison is made with prior examination dated September 27, 2015. FINDINGS: Small benign-appearing bilateral axillary lymph nodes. Intraluminal filling defects are seen in branches of the right and left upper lobe pulmonary arteries in keeping with the pulmonary emboli. Thrombus is also seen in the lower lobe pulmonary arteries bilaterally. Normal thoracic aorta and visualized great vessels. There is no demonstrated aortic dissection. Normal heart and pericardium. Normal mediastinum. Normal hilar regions. Normal visualized trachea and bronchi. The lungs are well expanded. Normal pulmonary parenchyma. Normal pleura. Normal chest wall structures. Normal osseous structures. The patient is status post splenectomy. Fatty infiltration of the liver. CT/CTA Chest W/WO Contrast IMPRESSION: Pulmonary emboli in the branches of both the upper and lower lobe bilateral pulmonary arteries. Electronically Signed: Emre Tan, at 11:37 EDT , Service support ,
[2019-07-31] MEDS: 0.9% Normal Saline 1,000 ML 999 ML IV (10:17)
[2019-07-31] MEDS: Enoxaparin 150 MG/ML Syringe SC (10:24)
[2019-07-31 10:30] VITALS: BP 167/81; PULSE 75; RESP 18; O2SAT 100
[2019-07-31 10:36] LABS: Absolute Lymphocyte Count 2.87 X10^3/uL (0.83-4.51); Absolute Neutrophil Count 4.2 X10^3/uL (2.0-7.7); Basophil% 1.2 % (0-1); Eosinophil# 0.29 X10^3/uL; Eosinophils% 3.5 % (0-5); Hematocrit 42.8 % (37-47); Hemoglobin 13.8 g/dL (12.0-15.0); Lymphocyte # 2.87 X10^3/ul (4.0); Mean Corp Hgb Conc 32.2 g/dL (32-36); Mean Corpuscular Hgb 31.2 pg (27.0-32.0); Mean Corpuscular Volume 96.6 fL (81-99); Mean Platelet Vol. 10.7 fl (6.2-12.0); Monocyte# 0.67 X10^3/uL; Monocyte% 8.2 % (0-10); NRBC Flagged by Analyzer 0.2 % (0-5); Neutrophil # 4.24 X10^3/uL (2.7-7.7); Neutrophil % 51.9 % (47-70); Platelet Count 476 K/mm3 (150-450); RBC Distribution Width CV 12.9 % (11.6-14.6); RBC Distribution Width SD 45.8 fl (35.1-43.9); Red Blood Count 4.43 M/mm3 (4.2-5.4); White Blood Count 8.2 K/mm3 (4.4-11.0)
[2019-07-31 10:52] LABS: Anion Gap 7 (5-15); BUN 14 mg/dL (7-18); BUN/Creat Ratio 18.1 RATIO (10-20); Calcium,Total 9.4 mg/dL (8.5-10.1); Chloride 103 mmol/L (98-107); Creatinine, Serum 0.77 mg/dL (0.55-1.02); EST Glomerular Filtration Rate 85 mL/min (>60); Est Glom Filt Rate - Afr Amer 102 mL/min (>60); Estimated Creatinine Clearance 103.11 ml/min; Glucose 106 mg/dL (74-106); Potassium 3.9 mmol/L (3.5-5.1); Sodium Level 141 mmol/L (136-145)
[2019-07-31 12:40] VITALS: BP 159/82; PULSE 74; RESP 18; O2SAT 100
== END 2019-07-31 12:40 | disposition home or self-care (01) ==
PROVIDERS: Emergency Provider Emergency Medicine; PCP Internal Medicine
DX: I26.99 Other pulmonary embolism without acute cor pulmonale (principal); I80.01 Phlebitis and thrombophlebitis of superficial vessels of right lower extremity; Q21.1 Atrial septal defect; E03.9 Hypothyroidism, unspecified; J45.909 Unspecified asthma, uncomplicated; G47.33 Obstructive sleep apnea (adult) (pediatric); Z79.02 Long term (current) use of antithrombotics/antiplatelets; Z79.899 Other long term (current) drug therapy; Z88.5 Allergy status to narcotic agent; Z88.8 Allergy status to other drugs, medicaments and biological substances; Z91.040 Latex allergy status; Z86.718 Personal history of other venous thrombosis and embolism; Z86.711 Personal history of pulmonary embolism; Z86.73 Personal history of transient ischemic attack (TIA), and cerebral infarction without residual deficits; Z85.71 Personal history of Hodgkin lymphoma
CPT/HCPCS: 71275; 80048; 84484; 85025; 85379; 93005; 93971; 94640; 96360; 96372; 99282; J7030; Q9967; A4216

== ENCOUNTER 2020-07-29 12:34 | Emergency (ER) | payer OTHER, SELFPAY ==
[2020-07-29 12:36] VITALS: BP 179/88; PULSE 92; RESP 15; TEMP 36.4; O2SAT 100; BMI 54.2
--- NOTE | 2020-07-29 12:47 | VDLE_ITS ---
Reason For Study: PAIN RIGHT GSV is normal. CFV is compressible, spontaneous, phasic, competent and demonstrates normal augmentation. FV is compressible, spontaneous, phasic, competent and demonstrates normal augmentation. POP V is compressible, spontaneous, phasic, competent and demonstrates normal augmentation. T/P Trunk is compressible. PTV is compressible. RT PerV is compressible. Procedure Exam performed portable in ED. The study was technically difficult. Technically difficult due to bady habitus. RT CFV not well visualized due to body habitus. A preliminary report was called and/or faxed to ED. VL/Venous Duplex US, Unilateral Interpretation Summary Deep veins of the right lower extremity are patent and compressible segmentally . There is no evidence of right lower extremity deep vein thrombosis. Valvular competence sivakumar ears intact within the proximal deep venous system on the right . The right great saphenous vein a ppears patent and compressible segmentally. The right common femoral vein was not well visualized due to the patient's body habitus. Ordering Physician: Catalino Heller Referring Physician: KAYKAY LEVY Performed By: Yuliya Washington RVT, RDCS and Student
--- NOTE | 2020-07-29 12:48 | EDS_ITS ---
HPI History of Present Illness Chief Complaint: Lower Extremity Injury Informant: patient Onset/Context/Timing Timing: Continuous Quality of Pain: - (Sore) Location: R lower leg Current Severity: Mild Maximum Severity: Mild Worsened by: Moving foot, palpation Relieved by: Remaining still Associated Symptoms Associated Symptoms: Negative for Parasthesia, Weakness and Loss of Funtion Narrative Narrative: Patient without known injury, on Xarelto and aspirin as well as clopidogrel, presenting with spontaneous onset of redness and pain in her medial right lower leg that she noticed yesterday evening, it was a little worse this morning, and she noted some progression of it since then so presents for evaluation. She states she feels like her heart is racing although that is gone at the time of evaluation, and she is a little anxious. She had some dyspnea with exertion up the hill to come to the ER as she walked here, however she states that is fairly normal for her to have. She denies any chest discomfort or pleuritic symptoms. [facility] Medical History (Updated 07/29/20 @ 13:[address] Catalino Heller MD) Acquired hypothyroidism Asthma CVA (cerebral vascular accident) DVT (deep venous thrombosis) History of Hodgkin's disease KHUSHBU (obstructive sleep apnea) Patent foramen ovale Pulmonary embolism Home Medications albuterol sulfate [ProAir HFA] 2 puff INHALATION Q4H PRN PRN 04/08/15 [History Last Taken 10/31/17 09:00] budesonide-formoterol [Symbicort] 2 puff INHALATION BID 04/08/15 [History Last Taken 07/29/16 07:30] levothyroxine 25 mcg PO DAILY 04/08/15 [History Last Taken 07/15/16] loratadine [Allergy Relief (loratadine)] 10 mg PO PRN PRN 04/08/15 [History Last Taken 06/29/16] multivitamin [Multiple Vitamins] 1 ea PO DAILY 07/29/16 [History Last Taken 07/28/16 22:30] clopidogrel 75 mg PO DAILY #30 tab 07/31/16 [Rx Last Taken 10/29/17] losartan-hydrochlorothiazide 1 ea PO DAILY 10/24/17 [History Last Taken Unknown] montelukast 10 mg PO DAILY 10/24/17 [History Last Taken Unknown] aspirin 81 mg PO DAILY 11/11/17 [History Last Taken Unknown] atorvastatin 40 mg PO DAILY 07/31/19 [History Last Taken Unknown] rivaroxaban 1 tab PO UD #51 tab 07/31/19 [Rx Last Taken Unknown] Allergy/AdvReac Type Severity Reaction Status Date / Time adhesive tape Allergy Rash Verified 07/29/20 12:37 hydrocodone bitartrate Allergy Rash Verified 07/29/20 12:37 [From Vicodin] latex Allergy Rash Verified 07/29/20 12:37 meloxicam Allergy Rash Verified 07/29/20 12:37 Social History Smoking Status: Never smoker ROS ROS ED Constitutional Constitutional ED: Denies chills or fever(s) Musculoskeletal Musculoskeletal: Reports extremity pain; Denies neck pain Integumentary Reports as per HPI and rash; Denies Abrasions or wounds Neurologic Neurologic: Denies paresthesias or weakness EXAM Physical Exam Const Vital Signs: 07/29/20 12:36 Temperature 97.6 F L Temperature Source Temporal Pulse Rate 92 Respiratory Rate 15 Blood Pressure 179/88 H Blood Pressure Mean 118 Pulse Ox 100 Oxygen Delivery Method Room Air Positive well nourished and well developed General Appearance ED: well developed and NAD Neck full ROM and supple Cardio peripheral pulses 2+ throughout Back/Spine normal ROM and normal to inspection Extremity full ROM Extremity Narrative: Mildly tender patch of erythema at the medial aspect of the distal right lower leg, above the medial malleolus, mildly warm but not excessively hot, no local edema. Almost consistent with mild central purpura without clearing, no obvious nidus for infection. Multiple capillary/venous varicosities throughout the right lower extremity. No calf tenderness. No lymphangitis. Neuro oriented x3, no focal motor deficits and no sensory deficits noted Sensorium / Orientation: alert Psych mental status grossly normal and thought process normal Skin no wounds and no petechiae Skin Narrative: Patch of erythema not circumferential distal right lower leg, see above. No subcutaneous emphysema. No lymphangitis. MDM MDM MDM Narrative Medical decision making narrative: I obtained an ultrasound of the right lower extremity confirming that there is no DVT or SVT present right now. Furthermore there is no fluid collection under the affected erythematous area as interpreted by the technician test systems who performed the test. I reassured the patient, this looks like either a mild amount of purpura from minor trauma on a patient who is on 2 antiplatelet medications as well as an anticoagulant, or it may also be an exaggerated response from an insect bite or sting. I do not think this appears to be infected. I do not think that given this is early on in the process that getting labs will really help determine which this is. As I discussed with the patient I think following this clinically is the main thing, making follow-up or return to the ER more important. As I discussed with her, early on spontaneous focal cellulitis and wheal and flare reaction from a sting or bite can look identical and feel similar. I do not think systemic antibiotics are warranted right now for this very small sore area, however if it spreads or has signs of lymphangitis, as I discussed with the patient the risk-benefit profile easily could change with regards to systemic antibiotics. If she wants to put topical antibiotics on it that would be reasonable but unlikely to make a major difference. Discharge Plan Triage Chief Complaint: Lower Extremity Injury ED Provider: Catalino Heller Dx/Rx/DC Orders Clinical Impression: Insect bites and stings Instructions: ED Insect Sting, Local Reaction Prescriptions: No Action levothyroxine 25 MCG tablet 25 mcg PO DAILY RF: 0 albuterol sulfate [ProAir HFA] 1 PUFF inhaler 2 puff inhalation Q4H PRN PRN (Reason: Shortness Of Breath) RF: 0 loratadine [Allergy Relief (loratadine)] 10 MG tablet 10 mg PO PRN PRN (Reason: Allergies) RF: 0 budesonide-formoterol [Symbicort] 1 INHALER inhaler 2 puff inhalation BID RF: 0 multivitamin [Multiple Vitamins] 1 EACH tablet 1 ea PO DAILY RF: 0 clopidogrel 75 MG tablet 75 mg PO DAILY Qty: 30 RF: 0 losartan-hydrochlorothiazide 1 EACH tablet 1 ea PO DAILY RF: 0 montelukast 10 MG tablet 10 mg PO DAILY RF: 0 aspirin 81 MG Tab.Chew 81 mg PO DAILY RF: 0 atorvastatin 20 MG tablet 40 mg PO DAILY RF: 0 rivaroxaban 1 EACH tablets,dose pack 1 tab PO UD Qty: 51 RF: 0 Primary Care Provider: Sho Lozano Referrals: Sho Lozano, [Primary Care Provider] - 3-5 Days if not improving (Or may return to ER if appears to be spreading or any red streaking or you develop a f ever) Disposition Disposition: Home, self care
[2020-07-29 13:40] VITALS: RESP 16
== END 2020-07-29 13:40 | disposition home or self-care (01) ==
LOC: ED 13:26
PROVIDERS: Emergency Provider Emergency Medicine; PCP Internal Medicine
DX: S80.861A Insect bite (nonvenomous), right lower leg, initial encounter (principal); J45.909 Unspecified asthma, uncomplicated; E03.9 Hypothyroidism, unspecified; W57.XXXA Bitten or stung by nonvenomous insect and other nonvenomous arthropods, initial encounter; Z85.71 Personal history of Hodgkin lymphoma; Z79.82 Long term (current) use of aspirin; Z79.51 Long term (current) use of inhaled steroids
CPT/HCPCS: 93971; 99282

== ENCOUNTER 2021-01-31 11:32 | Outpatient (CLI) | payer OTHER, SELFPAY ==
[2021-01-31] MEDS: 0.9% Saline Lock 10 ML Syringe IV (11:56)
[2021-01-31 11:58] VITALS: BP 155/96; PULSE 80; RESP 16; TEMP 36.4; O2SAT 99; BMI 54.2
[2021-01-31 12:29] VITALS: BP 149/90; PULSE 73; RESP 18; TEMP 36.6; O2SAT 98
[2021-01-31 13:17] VITALS: BP 152/99; PULSE 69; RESP 16; TEMP 36.5; O2SAT 98
== END 2021-01-31 13:25 | disposition home or self-care (01) ==
LOC: MS3OUT 11:33 → MS3 11:33
PROVIDERS: PCP Internal Medicine; Referring Provider Nurse Practitioner Adult Health; Visit Provider Nurse Practitioner Adult Health
DX: Z23 Encounter for immunization (principal); U07.1 COVID-19
CPT/HCPCS: J7050; M0245; Q0245; A4216

== ENCOUNTER 2021-11-24 20:43 | Emergency (ER) | payer OTHER, SELFPAY ==
[2021-11-24 20:44] VITALS: BP 209/94; PULSE 81; RESP 18; TEMP 36.4; O2SAT 100; BMI 57.6
--- NOTE | 2021-11-24 21:06 | CT_ITS ---
We are attempting to reach an attending provider to discuss findings. An addendum with communication details will be sent when the communication is complete. STAT! STAT! STROKE ALERT! STUDY: CT BRAIN WITHOUT CONTRAST PER STROKE ALERT PROTOCOL OF 2118 HOURS ON 11/24/2021 REASON FOR EXAM: 51-year-old female with headache. RADIATION DOSAGE (If Supplied By Facility): CTDIvol = ( 44.99 ) mGy, DLP = ( 880.47 ) mGycm TECHNIQUE: Transaxial CT imaging of the brain was performed without administration of intravenous contrast material. Individualized dose optimization techniques were used for this CT. Sagittal and coronal reconstructions were obtained and all were demonstrated in osseous and soft tissue algorithms. COMPARISON: No relevant priors. FINDINGS: Normal ventricular system without a midline shift. No ischemic or hemorrhagic cerebral infarct. No intracranial neoplasms, hemorrhage or hematomas. No intracranial metastatic disease. No subdural or epidural hematoma. Normal posterior fossa and brainstem. Normal sella and pituitary. Normal calvarium without linear depressed skull fractures. Normal paranasal sinuses. CT/STROKE Brain/Head without Cont IMPRESSION: 1. Normal unenhanced CT of the brain. 2. No ischemic or hemorrhagic cerebral infarct. 3. No intracranial hemorrhage or hematomas. 4. No intracranial mass lesions or metastatic disease. 5. Normal calvarium and paranasal sinuses. Electronically Signed: Brian Sorensen MD at 21:33 EDT ,
--- NOTE | 2021-11-24 21:11 | CT_ITS ---
We are attempting to reach an attending provider to discuss findings. An addendum with communication details will be sent when the communication is complete. STAT! STAT! STROKE ALERT! STUDY: CTA OF THE NECK AND HEAD WITH CONTRAST OF 2118 HOURS ON 11/24/2021 REASON FOR EXAM: 51-year-old female with severe sudden headache. RADIATION DOSAGE (If Supplied By Facility): CTDIvol = ( 24.79 ) mGy, DLP = ( 768.44 ) mGycm. TECHNIQUE: CT angiography was performed with a multi-detector CT scanner. Data acquisition was obtained from the skull base through the vertex following intravenous administration of 100 mL of Isovue-370. MIP images were reconstructed from the axial data set. Post-processing of the angiographic images was performed, with multiplanar reformation and 3D reconstruction. Individualized dose optimization techniques were used for this CT. COMPARISON: No relevant priors. FINDINGS: Normal thoracic aortic arch without aneurysm or dissection. On the MIP series there is a simulated filling defect in the mid right common carotid artery secondary to artifact. A lesser, but similar defect is noted within the mid left common carotid artery. This artifact is secondary to clothing snaps on the top of the clavicular regions. No evidence of significant atherosclerotic, stenotic, ulcerated lesions, or dissections of the common carotids, carotid bulbs, internal and external carotid arteries, or vertebral arteries. Basilar artery has normal appearance. [place] is intact without evidence of aneurysms. Normal distribution anterior, middle, and posterior cerebral arteries. No signs of arterial obstruction. No sites of arterial oligemia. No other intracranial aneurysms or vascular malformations. CT/STROKE CTA Head AND Neck W/Con IMPRESSION: 1. Normal examinations. 2. No significant atherosclerotic or stenotic, ulcerated lesions, or dissections of the common carotid arteries, carotid bulbs, internal and external carotid arteries, and equally dominant vertebral arteries. Normal basilar artery. 3. [place] of [place] is intact without evidence of aneurysms. 4. Normal distribution of the anterior, middle, and posterior cerebral arteries without sites of arterial obstruction or ascites of arterial oligemia. 5. No evidence of other intracranial aneurysms or vascular malformations. Electronically Signed: Brian Sorensen MD at 23:05 EDT ,
[2021-11-24 21:31] LABS: Absolute Lymphocyte Count 3.06 X10^3/uL (0.83-4.51); Absolute Neutrophil Count 5.1 X10^3/uL (2.0-7.7); Basophil# 0.11 X10^3/uL; Basophil% 1.2 % (0-1); Eosinophils% 2.2 % (0-5); Hematocrit 43.1 % (37-47); Hemoglobin 13.9 g/dL (12.0-15.0); Lymphocyte # 3.06 X10^3/ul (0.83-4.51); Lymphocyte % 32.9 % (19-41); Mean Corp Hgb Conc 32.3 g/dL (32-36); Mean Platelet Vol. 11.1 fl (6.2-12.0); Monocyte# 0.81 X10^3/uL; Monocyte% 8.7 % (0-10); NRBC Flagged by Analyzer 0.2 % (0-5); Neutrophil # 5.09 X10^3/uL (2.7-7.7); Neutrophil % 54.7 % (47-70); Platelet Count 474 K/mm3 (150-450); RBC Distribution Width CV 13.2 % (11.6-14.6); RBC Distribution Width SD 46.3 fl (35.1-43.9); Red Blood Count 4.49 M/mm3 (4.2-5.4); White Blood Count 9.3 K/mm3 (4.4-11.0)
[2021-11-24 21:44] VITALS: BP 156/76; PULSE 83; RESP 16; O2SAT 100
[2021-11-24 21:45] LABS: Anion Gap 7 (5-15); BUN 15 mg/dL (7-18); BUN/Creat Ratio 17.6 RATIO (10-20); Calcium,Total 9.2 mg/dL (8.5-10.1); Chloride 103 mmol/L (98-107); Creatinine, Serum 0.85 mg/dL (0.55-1.02); EST Glomerular Filtration Rate 75 mL/min (>60); Est Glom Filt Rate - Afr Amer 90 mL/min (>60); Estimated Creatinine Clearance 90.36 ml/min; Glucose 134 mg/dL (74-106); Potassium 3.7 mmol/L (3.5-5.1); Sodium Level 142 mmol/L (136-145)
[2021-11-24] MEDS: Metoclopramide 10 MG/2 ML Vial 5 MG IV (21:57)
[2021-11-24] MEDS: 0.9% Normal Saline 1,000 ML 999 ML IV (21:57)
[2021-11-24 22:00] VITALS: PULSE 80; RESP 16; O2SAT 100
[2021-11-24] MEDS: cloNIDine HCl 0.2 MG Tablet PO (22:56)
[2021-11-24 23:34] VITALS: BP 156/79; PULSE 68; RESP 16; O2SAT 96
--- NOTE | 2021-11-24 23:46 | EDS_ITS ---
HPI History of Present Illness Chief Complaint: Headache Informant: patient Onset/Context/Timing Onset: Hours (1) Context: Sudden Timing: Continuous Quality -Headache: Positive for Dull and Throbbing Location: Mostly occipital, nonlateralizing Current Severity: Severe Maximum Severity: Severe Worsened by: Nothing in particular Relieved by: Nothing but has not tried anything Associated Symptoms/Injury Associated Symptoms: Positive for Nausea and - (Some chills and a little dizzy) Injury - [place]: Negative for Direct Trauma or Fall Narrative Narrative: Little while after eating dinner, patient has sudden onset of severe headache. No neurologic symptoms or loss of consciousness, no vomiting, no vision changes, but she states it felt similar to a TIA she had before, but she admits she was having issues speaking and a facial droop with that as well which she does not have now. She does have a history of migraines, and this is not typical of her migraines although she has had a headache like this before. No recent head trauma. 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 [facility] Medical History Acquired hypothyroidism Asthma CVA (cerebral vascular accident) DVT (deep venous thrombosis) History of Hodgkin's disease KHUSHBU (obstructive sleep apnea) Patent foramen ovale Pulmonary embolism Home Medications albuterol sulfate 90 mcg/actuation aerosol inhaler (ProAir HFA) 2 puff inhalation Q4H PRN PRN Shortness Of Breath 04/08/15 [History Last Taken 10/31/17 09:00] budesonide-formoterol HFA 160 mcg-4.5 mcg/actuation aerosol inhaler (Symbicort) 2 puff inhalation BID PRN PRN sob 04/08/15 [History Last Taken 07/29/16 07:30] levothyroxine 25 mcg tablet 25 mcg PO DAILY 04/08/15 [History Last Taken 07/15/16] loratadine 10 mg tablet (Allergy Relief (loratadine)) 10 mg PO PRN PRN Allergies 04/08/15 [History Last Taken 06/29/16] multivitamin (Multiple Vitamins tablet) 1 ea PO DAILY 07/29/16 [History Last Taken 07/28/16 22:30] losartan 100 mg-hydrochlorothiazide 25 mg tablet (Hyzaar) 1 ea PO DAILY 10/24/17 [History Last Taken Unknown] montelukast 10 mg tablet (Singulair) 10 mg PO DAILY 10/24/17 [History Last Taken Unknown] aspirin 81 mg chewable tablet 81 mg PO DAILY 11/11/17 [History Last Taken Unknown] rivaroxaban 20 mg tablet (Xarelto) 20 mg PO QHS 01/31/21 [History Last Taken Unknown] Allergy/AdvReac Type Severity Reaction Status Date / Time adhesive tape Allergy Rash Verified 11/24/21 20:48 hydrocodone bitartrate Allergy Rash Verified 11/24/21 20:48 [From Vicodin] latex Allergy Rash Verified 11/24/21 20:48 meloxicam Allergy Rash Verified 11/24/21 20:48 Social History Smoking Status: Never smoker ROS ROS ED Constitutional Constitutional ED: Reports chills; Denies fever(s) Eyes Eyes: Denies blurry vision or diplopia ENT ENT ED: Denies ear pain or sore throat Cardiovascular Cardiovascular: Denies chest pain or palpitations Respiratory/Chest Respiratory/Chest: Denies cough or dyspnea Gastrointestinal Gastrointestinal: Reports nausea; Denies abdominal pain, diarrhea or vomiting Genitourinary Genitourinary ED: Denies dysuria or urinary frequency Musculoskeletal Musculoskeletal: Denies back pain or myalgias Integumentary Denies abscess or rash Neurologic Neurologic: Reports headache(s); Denies paresthesias or weakness EXAM Physical Exam Const Vital Signs: 11/24/21 20:44 11/24/21 21:44 11/24/21 22:00 Temperature 97.5 F L Temperature Source Temporal Pulse Rate 81 83 80 Respiratory Rate 18 16 16 Blood Pressure 209/94 H 156/76 H Blood Pressure Mean 132 102 Pulse Ox 100 100 100 Oxygen Delivery Method Room Air Room Air Room Air 11/24/21 23:34 Temperature Temperature Source Pulse Rate 68 Respiratory Rate 16 Blood Pressure 156/79 H Blood Pressure Mean 104 Pulse Ox 96 Oxygen Delivery Method Room Air HEENT Reports normocephalic and moist mucous membranes atraumatic Eyes PERRL, EOMs intact bilaterally and conjunctivae normal Eyes Narrative: photophobia Neck no lymphadenopathy, supple and no meningeal signs Resp normal respiratory effort and clear to auscultation bilaterally GI non-tender and non-distended Palpation: soft Extremity normal to inspection and full ROM Neuro oriented x3 and CN's II-XII intact bilaterally Neuro Narrative: NIHSS 0 Miles Coma Scale: document GCS findings Spontaneous Obeys Commands Oriented 15 Sensorium / Orientation: awake and alert Coordination / Balance: [id number] test normal and qgor-dn-thms test normal Speech: speech normal Gait (Neuro): normal gait Motor Exam: strength 5/5 throughout Psych mental status grossly normal Skin Lesions: no lesions Rashes: no rashes MDM MDM MDM Narrative Medical decision making narrative: Patient presented in the middle of a very busy emergency department and I was alerted by nursing the concern for this patient because of her symptoms and extremely high blood pressure at 209/94. Saw the patient expeditiously, and we sent her for stat plain CT and CT angiography, in order to better rule out subarachnoid hemorrhage if the noncontrast was negative which it was. The CTA is completely normal according to the radiologist as well. Her labs are normal. In the meantime she was given Reglan IV, and we observed her. Her blood pressure came down to the 150s and her headache was completely resolved. Her blood climbed a little, to 169 systolic and I gave her clonidine 0.2 mg orally, and we observed her. She is on losartan/HCTZ once daily and compliant with it. On reevaluation her blood pressure is 151/82. She feels 100% better. Uncomfortable letting her go home under the circumstances and following up closely after the weekend with her doctor for blood pressure recheck she is comfortable with that plan. Lab Data Attestation: I reviewed the patient's lab results. Labs: Laboratory Results - last 24 hr 11/24/21 11/24/21 20:58 20:58 WBC 9.3 RBC 4.49 Hgb 13.9 Hct 43.1 MCV 96.0 MCH 31.0 MCHC 32.3 RDW Std Deviation 46.3 H RDW Coeff of [place] 13.2 Plt Count 474 H MPV 11.1 Immature Gran % (Auto) 0.300 Neut % (Auto) 54.7 Lymph % (Auto) 32.9 [place] % (Auto) 8.7 Eos % (Auto) 2.2 Baso % (Auto) 1.2 H Absolute Neuts (auto) 5.1 Absolute Lymphs (auto) 3.06 Nucleated RBC % 0.2 Sodium 142 Potassium 3.7 Chloride 103 Carbon Dioxide 32.0 Anion Gap 7 BUN 15 Creatinine 0.85 Estim Creat Clear Calc 90.36 Est GFR (MDRD) Af Amer 90 Est GFR (MDRD) Non-Af 75 BUN/Creatinine Ratio 17.6 Glucose 134 H Calcium 9.2 Radiography Diagnostic Testing: Clinical Impression(s) from Imaging Studies Brain CT 11/24/21 21:06 IMPRESSION: 1. Normal unenhanced CT of the brain. 2. No ischemic or hemorrhagic cerebral infarct. 3. No intracranial hemorrhage or hematomas. 4. No intracranial mass lesions or metastatic disease. 5. Normal calvarium and paranasal sinuses. Electronically Signed: Brian Sorensen MD at 21:33 EDT , ADDENDUM: 11/24/212151 IMPRESSION: 1. Normal unenhanced CT of the brain. 2. No ischemic or hemorrhagic cerebral infarct. 3. No intracranial hemorrhage or hematomas. 4. No intracranial mass lesions or metastatic disease. 5. Normal calvarium and paranasal sinuses. N.B. : The above Results were Read Back by Brian Sorensen MD to JULIAN Singh, and understanding confirmed on 11/24/2021 21:45:03 (ET). Electronically Signed: Brian Sorensen MD at 21:33 EDT , Head/Neck CTA 11/24/21 21:11 IMPRESSION: 1. Normal examinations. 2. No significant atherosclerotic or stenotic, ulcerated lesions, or dissections of the common carotid arteries, carotid bulbs, internal and external carotid arteries, and equally dominant vertebral arteries. Normal basilar artery. 3. [place] of [place] is intact without evidence of aneurysms. 4. Normal distribution of the anterior, middle, and posterior cerebral arteries without sites of arterial obstruction or ascites of arterial oligemia. 5. No evidence of other intracranial aneurysms or vascular malformations. Electronically Signed: Brian Sorensen MD at 23:05 EDT , Discharge Plan Triage Chief Complaint: Headache ED Provider: Catalino Heller Dx/Rx/DC Orders Clinical Impression: Sudden onset of severe headache, Accelerated hypertension, Anticoagulated Instructions: Understanding Headache Pain, Hypertension Dc Prescriptions: No Action levothyroxine 25 MCG tablet 25 mcg PO DAILY Label Comments: Thyroid albuterol sulfate [ProAir HFA] 1 PUFF inhaler 2 puff inhalation Q4H PRN PRN (Reason: Shortness Of Breath) Label Comments: Breathing loratadine [Allergy Relief (loratadine)] 10 MG tablet 10 mg PO PRN PRN (Reason: Allergies) Label Comments: Allergies budesonide-formoterol [Symbicort] 1 INHALER inhaler 2 puff inhalation BID PRN PRN (Reason: sob) Label Comments: Breathing multivitamin [Multiple Vitamins] 1 EACH tablet 1 ea PO DAILY Label Comments: Vitamin losartan-hydrochlorothiazide [Hyzaar] 1 EACH tablet 1 ea PO DAILY montelukast [Singulair] 10 MG tablet 10 mg PO DAILY aspirin 81 MG tablet,chewable 81 mg PO DAILY Xarelto 20 mg tablet 20 mg PO QHS Primary Care Provider: Ayana Cárdenas Referrals: Ayana Cárdenas MD [Primary Care Provider] - (after the weekend for BP recheck) Disposition Disposition: Home, Self Care
[2021-11-24 23:58] VITALS: BP 151/82; PULSE 79; RESP 18; O2SAT 97
== END 2021-11-24 23:59 | disposition home or self-care (01) ==
PROVIDERS: Emergency Provider Emergency Medicine; PCP Internal Medicine; Visit Provider Emergency Medicine
DX: R51.9 Headache, unspecified (principal); I10 Essential (primary) hypertension; R68.83 Chills (without fever); R11.0 Nausea; J45.909 Unspecified asthma, uncomplicated; G47.33 Obstructive sleep apnea (adult) (pediatric); Z79.82 Long term (current) use of aspirin; Z79.01 Long term (current) use of anticoagulants; Z79.890 Hormone replacement therapy; Z79.899 Other long term (current) drug therapy; Z86.73 Personal history of transient ischemic attack (TIA), and cerebral infarction without residual deficits; Z86.718 Personal history of other venous thrombosis and embolism; Z86.711 Personal history of pulmonary embolism; Z85.71 Personal history of Hodgkin lymphoma
CPT/HCPCS: 70450; 70496; 70498; 80048; 85025; 96361; 96374; 99283; J7030; Q9967; A4216

== ENCOUNTER 2022-01-25 10:34 | Emergency (ER) | payer OTHER, SELFPAY ==
[2022-01-25 10:37] VITALS: BP 137/95; PULSE 81; RESP 18; TEMP 36.7; O2SAT 96; BMI 52.2
--- NOTE | 2022-01-25 10:55 | EX.ED.GENINJ ---
HPI History of Present Illness Chief Complaint: Other, Pain/Inj Narrative Narrative: 51-year-old female states I have a bleeder. She states she had a varicosity burst. It was not painful. She states she just bumped her leg and it started to bleed. She is on Xarelto and was having trouble getting the bleeding controlled. Her put on a pressure dressing and brought her to the ER. He is not lightheaded, dizzy. She does not estimate blood loss. No significant pain. No numbness or tingling. She does admit that she supposed to wear compression hose and she has not been wearing them lately and thinks this is the reason why she has the issue. [facility] Medical History Acquired hypothyroidism Asthma CVA (cerebral vascular accident) DVT (deep venous thrombosis) History of Hodgkin's disease KHUSHBU (obstructive sleep apnea) Patent foramen ovale Pulmonary embolism Home Medications albuterol sulfate 90 mcg/actuation aerosol inhaler (ProAir HFA) 2 puff inhalation Q4H PRN PRN Shortness Of Breath 04/08/15 [History Last Taken 10/31/17 09:00] budesonide-formoterol HFA 160 mcg-4.5 mcg/actuation aerosol inhaler (Symbicort) 2 puff inhalation BID PRN PRN sob 04/08/15 [History Last Taken 07/29/16 07:30] levothyroxine 25 mcg tablet 25 mcg PO DAILY 04/08/15 [History Last Taken 07/15/16] loratadine 10 mg tablet (Allergy Relief (loratadine)) 10 mg PO PRN PRN Allergies 04/08/15 [History Last Taken 06/29/16] multivitamin (Multiple Vitamins tablet) 1 ea PO DAILY 07/29/16 [History Last Taken 07/28/16 22:30] losartan 100 mg-hydrochlorothiazide 25 mg tablet (Hyzaar) 1 ea PO DAILY 10/24/17 [History Last Taken Unknown] montelukast 10 mg tablet (Singulair) 10 mg PO DAILY 10/24/17 [History Last Taken Unknown] aspirin 81 mg chewable tablet 81 mg PO DAILY 11/11/17 [History Last Taken Unknown] rivaroxaban 20 mg tablet (Xarelto) 20 mg PO QHS 01/31/21 [History Last Taken Unknown] Allergy/AdvReac Type Severity Reaction Status Date / Time adhesive tape Allergy Rash Verified 01/25/22 10:37 hydrocodone bitartrate Allergy Rash Verified 01/25/22 10:37 [From Vicodin] latex Allergy Rash Verified 01/25/22 10:37 meloxicam Allergy Rash Verified 01/25/22 10:37 Social History Smoking Status: Never smoker ROS ROS ED Constitutional Constitutional ED: Denies chills Eyes Eyes: Denies change in vision or other ENT ENT ED: Denies rhinorrhea or sore throat Cardiovascular Cardiovascular: Denies chest pain or palpitations Respiratory/Chest Respiratory/Chest: Denies cough or dyspnea Gastrointestinal Gastrointestinal: Denies abdominal pain Genitourinary Genitourinary ED: Denies dysuria or hematuria Musculoskeletal Musculoskeletal: Denies arthralgias or back pain Integumentary Reports Abrasions Neurologic Neurologic: Denies headache(s) Psychiatric Psychiatric: Denies anxiety or depression EXAM Physical Exam Const Vital Signs: 01/25/22 10:37 Temperature 98.0 F Temperature Source Temporal Pulse Rate 81 Respiratory Rate 18 Blood Pressure 137/95 H Blood Pressure Mean 109 Pulse Ox 96 Oxygen Delivery Method Room Air Positive well nourished General Appearance ED: NAD HEENT atraumatic Eyes PERRL and EOMs intact bilaterally Resp normal respiratory effort Cardio regular rhythm Rate: regular rate Extremity normal to inspection Neuro oriented x3 and CN's II-XII intact bilaterally Sensorium / Orientation: alert Motor Exam: strength 5/5 throughout Psych mental status grossly normal and thought process normal Skin Skin Narrative: Punctate abrasion located on the medial ankle after pressure dressing was removed is no longer bleeding. There is no tenderness. There is no sign of infection. MDM MDM MDM Narrative Medical decision making narrative: I remove the pressure dressing from the patient's ankle and the bleeding has resolved. Wound was cleaned Surgicel was placed compression dressing was placed over this using Coban. Patient will be monitored. If her bleeding Is controlled she will be discharged. Patient reevaluated at 11:45 AM. She states she wants to go home she has not had any bleeding. Patient discharged in stable condition. She is given another half of the Surgicel as well as some Coban. She has any repeat bleeding. She was counseled to wear her compression stockings as prescribed. Impression: 1. Bleeding varicose vein?resolved Discharge Plan Triage Chief Complaint: Other, Pain/Inj ED Provider: Kiel Ferrell Dx/Rx/DC Orders Instructions: ED Varicose Veins Prescriptions: No Action levothyroxine 25 MCG tablet 25 mcg PO DAILY Label Comments: Thyroid albuterol sulfate [ProAir HFA] 1 PUFF inhaler 2 puff inhalation Q4H PRN PRN (Reason: Shortness Of Breath) Label Comments: Breathing loratadine [Allergy Relief (loratadine)] 10 MG tablet 10 mg PO PRN PRN (Reason: Allergies) Label Comments: Allergies budesonide-formoterol [Symbicort] 1 INHALER inhaler 2 puff inhalation BID PRN PRN (Reason: sob) Label Comments: Breathing multivitamin [Multiple Vitamins] 1 EACH tablet 1 ea PO DAILY Label Comments: Vitamin losartan-hydrochlorothiazide [Hyzaar] 1 EACH tablet 1 ea PO DAILY montelukast [Singulair] 10 MG tablet 10 mg PO DAILY aspirin 81 MG tablet,chewable 81 mg PO DAILY Xarelto 20 mg tablet 20 mg PO QHS Primary Care Provider: Ayana Cárdenas Referrals: Ayana Cárdenas MD [Primary Care Provider] - Disposition Disposition: Home, Self Care Discharge Date/Time: 01/25/22 11:55
== END 2022-01-25 11:55 | disposition home or self-care (01) ==
PROVIDERS: Emergency Provider Student in an Organized Health Care Education/Training Program; PCP Internal Medicine; Visit Provider Student in an Organized Health Care Education/Training Program
DX: I83.892 Varicose veins of left lower extremity with other complications (principal); E03.9 Hypothyroidism, unspecified; G47.33 Obstructive sleep apnea (adult) (pediatric); Z79.82 Long term (current) use of aspirin; Z79.01 Long term (current) use of anticoagulants; Z79.890 Hormone replacement therapy; Z79.899 Other long term (current) drug therapy; Z86.718 Personal history of other venous thrombosis and embolism; Z86.73 Personal history of transient ischemic attack (TIA), and cerebral infarction without residual deficits; Z86.711 Personal history of pulmonary embolism
CPT/HCPCS: 99282

== ENCOUNTER 2022-09-19 16:55 | Emergency (ER) | payer OTHER, SELFPAY ==
[2022-09-19 16:57] VITALS: BP 167/88; PULSE 100; RESP 17; TEMP 37.6; O2SAT 99
--- NOTE | 2022-09-19 17:19 | EX.ED.DYSGE1 ---
HPI History of Present Illness Chief Complaint: General Illness Detail of Chief Complaint: Fever, body aches, right leg redness Informant: patient Onset/Context/Timing Onset: Today Narrative Narrative: Patient presents with generalized body aches, low-grade fever, red lesion to her right leg. Patient noted symptoms today. She states her temperature was around 100. She did take aspirin. She noted a warm red area to the inside of her right lower leg today. She denies any known injury or bite. She raises concern for DVT as she does have a history of DVT and PE. She is currently on Xarelto. Patient has had very minimal congestion. She denies dysuria. [facility] Medical History (Updated 09/19/22 @ 19:[address] Maria Esther Brody MD) Acquired hypothyroidism Asthma CVA (cerebral vascular accident) DVT (deep venous thrombosis) History of Hodgkin's disease KHUSHBU (obstructive sleep apnea) Patent foramen ovale Pulmonary embolism Home Medications albuterol sulfate 90 mcg/actuation aerosol inhaler (ProAir HFA) 2 puff inhalation Q4H PRN PRN Shortness Of Breath 04/08/15 [History Last Taken 10/31/17 09:00] budesonide-formoterol HFA 160 mcg-4.5 mcg/actuation aerosol inhaler (Symbicort) 2 puff inhalation BID PRN PRN sob 04/08/15 [History Last Taken 07/29/16 07:30] levothyroxine 25 mcg tablet 25 mcg PO DAILY 04/08/15 [History Last Taken 07/15/16] loratadine 10 mg tablet (Allergy Relief (loratadine)) 10 mg PO PRN PRN Allergies 04/08/15 [History Last Taken 06/29/16] multivitamin (Multiple Vitamins tablet) 1 ea PO DAILY 07/29/16 [History Last Taken 07/28/16 22:30] losartan 100 mg-hydrochlorothiazide 25 mg tablet (Hyzaar) 1 ea PO DAILY 10/24/17 [History Last Taken Unknown] montelukast 10 mg tablet (Singulair) 10 mg PO DAILY 10/24/17 [History Last Taken Unknown] aspirin 81 mg chewable tablet 81 mg PO DAILY 11/11/17 [History Last Taken Unknown] rivaroxaban 20 mg tablet (Xarelto) 20 mg PO QHS 11/30/21 [History Last Taken Unknown] cephalexin 500 mg capsule 500 mg PO Q6 #40 CAPSULES 09/19/22 [Rx Last Taken Unknown] sulfamethoxazole 800 mg-trimethoprim 160 mg tablet (Bactrim DS) 1 tab PO BID #20 tabs 09/19/22 [Rx Last Taken Unknown] Allergy/AdvReac Type Severity Reaction Status Date / Time adhesive tape Allergy Rash Verified 09/19/22 16:57 hydrocodone bitartrate Allergy Rash Verified 09/19/22 16:57 [From Vicodin] latex Allergy Rash Verified 09/19/22 16:57 meloxicam Allergy Rash Verified 09/19/22 16:57 Surgical History H/O hernia repair History of appendectomy History of partial colectomy Hx of splenectomy Social History Smoking Status: Never smoker ROS ROS ED Constitutional Constitutional ED: Reports chills and fever(s) Eyes Eyes: Denies change in vision or discharge from eye(s) ENT ENT ED: Denies discharge from eye(s), rhinorrhea or sore throat Cardiovascular Cardiovascular: Denies chest pain or palpitations Respiratory/Chest Respiratory/Chest: Reports other Details: Mild chest congestion ; Denies cough or dyspnea Gastrointestinal Gastrointestinal: Denies abdominal pain, diarrhea, nausea or vomiting Genitourinary Genitourinary ED: Denies difficulty urinating or dysuria Musculoskeletal Musculoskeletal: Reports extremity pain and myalgias; Denies back pain Integumentary Reports rash; Denies Abrasions Neurologic Neurologic: Reports headache(s); Denies weakness Psychiatric Psychiatric: Denies anxiety or depression Endocrine Endocrinology: Denies polydipsia or polyuria Allergic/Immunologic Allergic/Immunologic ED: Denies lip swelling or urticaria EXAM Physical Exam Const Vital Signs: 09/19/22 16:57 09/19/22 17:06 Temperature 99.6 F H Temperature Source Oral Pulse Rate 100 Respiratory Rate 17 Respiratory Pattern Normal Blood Pressure 167/88 H Blood Pressure Mean 114 Pulse Ox 99 Oxygen Delivery Method Room Air Positive well nourished and well developed General Appearance ED: well developed HEENT Reports normocephalic and head/scalp atraumatic Eyes PERRL and EOMs intact bilaterally Neck supple Chest Wall inspection of chest normal and palpation of chest normal Resp normal respiratory effort and clear to auscultation bilaterally Cardio regular rate and regular rhythm GI normal to inspection, nondistended, normoactive bowel sounds Palpation: soft Extremity Extremity Narrative: Warm erythematous lesion along the inner surface of the right lower leg measuring approximately 7 cm in diameter. No open wounds noted. No lymphangitic streak. Neuro oriented x3 and no sensory deficits noted Sensorium / Orientation: alert Motor Exam: strength 5/5 throughout Psych mental status grossly normal MDM MDM MDM Narrative Medical decision making narrative: Labwork obtained to evaluate for leukocytosis, anemia, and electrolyte derangement. Urinalysis obtained to evaluate for infection/hematuria. Blood cultures obtained along with swab for flu and influenza. Chest x-ray obtained to evaluate for acute lung pathology, cardiac size, or mediastinal abnormality. Right lower extremity venous ultrasound obtained to evaluate for clot. Lab Data Attestation: I reviewed the patient's lab results. Labs: Laboratory Results - last 24 hr 09/19/22 09/19/22 17:15 17:30 WBC 11.0 RBC 4.66 Hgb 14.5 Hct 44.6 MCV 95.7 MCH 31.1 MCHC 32.5 RDW Std Deviation 47.3 H RDW Coeff of [place] 13.5 Plt Count 486 H MPV 10.6 Immature Gran % (Auto) 0.400 Neut % (Auto) 78.3 H Lymph % (Auto) 12.5 L [place] % (Auto) 7.5 Eos % (Auto) 0.5 Baso % (Auto) 0.8 Absolute Neuts (auto) 8.6 H Absolute Lymphs (auto) 1.38 Nucleated RBC % 0.2 Sodium 135 L Potassium 3.3 L Chloride 98 Carbon Dioxide 32.0 Anion Gap 5 BUN 14 Creatinine 0.88 Est GFR (MDRD) Af Amer 87 Est GFR (MDRD) Non-Af 72 BUN/Creatinine Ratio 15.9 Glucose 105 Calcium 9.3 Urine Color Yellow Urine Clarity Clear Urine pH 7.0 Ur Specific [place] 1.010 Urine Protein Negative Urine Glucose (UA) Normal Urine Ketones Negative Urine Occult Blood 10 H Urine Nitrite Negative Urine Bilirubin Negative Urine Urobilinogen Normal Ur Leukocyte Esterase 25 H Urine RBC 0 SEEN Urine WBC 0-5 SEEN Ur Squamous Epith Cells 0-5 SEEN Urine Bacteria 1+ Urine Mucus 0 SEEN Radiography Diagnostic Testing: Clinical Impression(s) from Imaging Studies Venous Duplex 09/19/22 17:50 IMPRESSION: There is no demonstrated deep venous thrombosis. Electronically Signed: Arthur Sandhu MD at 18:25 EDT , Chest X-Ray 09/19/22 18:10 IMPRESSION: Right lower lobe infiltrate. Electronically Signed: Arthur Sandhu MD at 18:26 EDT , Treatment and Re-Evaluation :: CBC was normal white count at 11.0 with 78% neutrophils. Chemistry studies significant only for slightly low potassium at 3.3. Sodium is 135. Renal function is normal. Urinalysis reveals 1+ bacteria with 0-5 white cells and no nitrites. Swab for COVID and influenza is negative. Right lower extremity ultrasound is negative for DVT. Portable chest x-ray per my interpretation reveals chronic changes with no obvious abnormality. Radiology feels there may be a right lower lobe infiltrate. Patient states she has some slight chest congestion but does not feel short of breath and has not had cough. Area of erythema on her lower leg is outlined with a surgical marker. She will be treated with Bactrim and Keflex for cellulitis. Return instructions are given. Patient is comfortable with the plan. Discharge Plan Triage Chief Complaint: General Illness ED Provider: Maria Esther Brody Dx/Rx/DC Orders Clinical Impression: Cellulitis Instructions: ED Cellulitis Prescriptions: New sulfamethoxazole-trimethoprim [Bactrim DS] 800-160 mg tablet 1 tab PO BID Qty: 20 0RF cephalexin 500 mg capsule 500 mg PO Q6 Qty: 40 0RF No Action levothyroxine 25 MCG tablet 25 mcg PO DAILY Patient Comments: Thyroid albuterol sulfate [ProAir HFA] 1 PUFF inhaler 2 puff inhalation Q4H PRN PRN (Reason: Shortness Of Breath) Patient Comments: Breathing loratadine [Allergy Relief (loratadine)] 10 MG tablet 10 mg PO PRN PRN (Reason: Allergies) Patient Comments: Allergies budesonide-formoterol [Symbicort] 1 INHALER inhaler 2 puff inhalation BID PRN PRN (Reason: sob) Patient Comments: Breathing multivitamin [Multiple Vitamins] 1 EACH tablet 1 ea PO DAILY Patient Comments: Vitamin losartan-hydrochlorothiazide [Hyzaar] 1 EACH tablet 1 ea PO DAILY montelukast [Singulair] 10 MG tablet 10 mg PO DAILY aspirin 81 MG tablet,chewable 81 mg PO DAILY Xarelto 20 mg tablet 20 mg PO QHS Primary Care Provider: Ayana Cárdenas Referrals: Ayana Cárdenas MD [Primary Care Provider] - 1-2 Weeks Disposition Disposition: Home, Self Care
[2022-09-19 17:49] LABS: Absolute Lymphocyte Count 1.38 X10^3/uL (0.83-4.51); Absolute Neutrophil Count 8.6 X10^3/uL (2.0-7.7); Basophil# 0.09 X10^3/uL; Basophil% 0.8 % (0-1); Eosinophil# 0.05 X10^3/uL; Eosinophils% 0.5 % (0-5); Hematocrit 44.6 % (37-47); Hemoglobin 14.5 g/dL (12.0-15.0); Lymphocyte # 1.38 X10^3/ul (0.83-4.51); Lymphocyte % 12.5 % (19-41); Mean Corp Hgb Conc 32.5 g/dL (32-36); Mean Corpuscular Hgb 31.1 pg (27.0-32.0); Mean Corpuscular Volume 95.7 fL (81-99); Mean Platelet Vol. 10.6 fl (6.2-12.0); Monocyte# 0.83 X10^3/uL; Monocyte% 7.5 % (0-10); NRBC Flagged by Analyzer 0.2 % (0-5); Neutrophil # 8.62 X10^3/uL (2.7-7.7); Neutrophil % 78.3 % (47-70); Platelet Count 486 K/mm3 (150-450); RBC Distribution Width CV 13.5 % (11.6-14.6); RBC Distribution Width SD 47.3 fl (35.1-43.9); Red Blood Count 4.66 M/mm3 (4.2-5.4)
--- NOTE | 2022-09-19 17:50 | US_ITS ---
STUDY: VENOUS DOPPLER ULTRASOUND - RIGHT LOWER EXTREMITY REASON FOR EXAM: Female, 52 years old. LEG PAIN AND SWELLING RT MEDIAL ANKLE REDNESS AND WARMTH WITH FEVER TECHNIQUE: Ultrasound evaluation of the deep vein system to include vidal-scale imaging and compression was performed. Vidal-scale imaging and Doppler sonographic evaluation, including duplex spectral analysis and qualitative color flow sonography, was performed. COMPARISON: 07.31.19. FINDINGS: Common Femoral Vein: Normal compression, spontaneity and augmentation. Normal color Doppler. Superficial Femoral Proximal: Normal compression, spontaneity and augmentation. Normal color Doppler. Superficial Femoral Middle: Normal compression, spontaneity and augmentation. Normal color Doppler. Superficial Femoral Distal: Normal compression, spontaneity and augmentation. Normal color Doppler. Popliteal Vein: Normal compression, spontaneity and augmentation. Normal color Doppler. Posterior Tibial Vein: Normal compression, spontaneity and augmentation. Normal color Doppler. Peroneal Vein: Normal compression, spontaneity and augmentation. Normal color Doppler. There is no demonstrated deep venous thrombosis. US/Venous Duplex Imag/Limited/Uni IMPRESSION: There is no demonstrated deep venous thrombosis. Electronically Signed: Arthur Sandhu MD at 18:25 EDT ,
[2022-09-19 17:53] LABS: Mucous, Urine 0 SEEN /hpf (<or=2+); Red Blood Cells-Urine 0 SEEN /hpf (0-5)
[2022-09-19 17:54] LABS: Color, Urine Yellow (Yellow); Glucose, Dipstick Normal (Normal); Ketone-Dipstick Negative (Negative); Leukocyte Esterase-Dipstick 25 /ul (Negative); Nitrite-Dipstick Negative (Negative); Occult Blood-Urine 10 /ul (Negative); Protein-Dipstick Negative (Negative); Urine Bilirubin Dipstick Negative (Negative); Urine Clarity Clear (Clear); Urine Urobilinogen Normal (Normal)
[2022-09-19 18:00] LABS: Anion Gap 5 (5-15); BUN 14 mg/dL (7-18); BUN/Creat Ratio 15.9 RATIO (10-20); Calcium,Total 9.3 mg/dL (8.5-10.1); Chloride 98 mmol/L (98-107); Creatinine, Serum 0.88 mg/dL (0.55-1.02); EST Glomerular Filtration Rate 72 mL/min (>60); Est Glom Filt Rate - Afr Amer 87 mL/min (>60); Glucose 105 mg/dL (74-106); Potassium 3.3 mmol/L (3.5-5.1); Sodium Level 135 mmol/L (136-145)
[2022-09-19 18:04] LABS: Bacteria 1+ /hpf (None Seen); Squamous Epithelial Cells - UA 0-5 SEEN /hpf (5-10); White Blood Cells 0-5 SEEN /hpf (0-5)
--- NOTE | 2022-09-19 18:10 | RAD_ITS ---
EXAM: XR CHEST, 1 VIEW CLINICAL INDICATION: fever TECHNIQUE: Frontal view of the chest. COMPARISON: [id number] FINDINGS: LUNGS AND PLEURAL SPACES: Right lower lobe infiltrate. No pneumothorax. No effusion. HEART: Unremarkable. Cardiac silhouette not enlarged. MEDIASTINUM: Central airways and mediastinal contour are unremarkable. BONES/JOINTS: Unremarkable. SOFT TISSUES: Unremarkable. RAD/Chest 1 View (Portable) IMPRESSION: Right lower lobe infiltrate. Electronically Signed: Arthur Sandhu MD at 18:26 EDT ,
[2022-09-19] MEDS: Cephalexin 250 MG Capsule 500 MG PO (19:56)
[2022-09-19] MEDS: Smz/Tmp Ds Tablet 1 TABLET PO (19:57)
[2022-09-19 20:00] VITALS: BP 142/76; PULSE 78; RESP 16; TEMP 36.6; O2SAT 98; BMI 29.8
== END 2022-09-19 20:03 | disposition home or self-care (01) ==
PROVIDERS: Emergency Provider Emergency Medicine; PCP Internal Medicine; Visit Provider Emergency Medicine
DX: L03.115 Cellulitis of right lower limb (principal); E03.9 Hypothyroidism, unspecified; G47.33 Obstructive sleep apnea (adult) (pediatric); Z79.82 Long term (current) use of aspirin; Z79.01 Long term (current) use of anticoagulants; Z79.890 Hormone replacement therapy; Z79.899 Other long term (current) drug therapy; Z86.718 Personal history of other venous thrombosis and embolism; Z86.711 Personal history of pulmonary embolism; Z86.73 Personal history of transient ischemic attack (TIA), and cerebral infarction without residual deficits
CPT/HCPCS: 36415; 71045; 80048; 81001; 85025; 87040; 87428; 93971; 99284; A4216